=== PATIENT | male | born 1990 | race Hispanic/Latino ===

== ENCOUNTER 2018-06-04 23:04 | Emergency (ER) | payer BC ==
[2018-06-04] MEDS ORDERED: DIAZEPAM 10 MG/2 ML INJ SYRINGE ONE (23:21)
[2018-06-04] MEDS ORDERED: NA CHLORIDE 0.9% 1,000 ML ONE (23:27)
[2018-06-04 23:40] LABS: Absolute Lymphocytes (CBC) 3.7 K/uL (0.7-4.9); Absolute Monocytes 0.8 K/uL (0.1-1.3); Absolute Neutrophil 5.6 K/uL (1.8-8.0); Basophils % 0.8 % (0-1.3); Eosinophils % 0.7 % (0-4.4); Lymphocytes % 36.3 % (15.3-44.8); MCH 30.1 pg (27.0-35.0); MCV 88.4 fL (80-100); MPV 9.2 fL (7.6-11.3); Monocytes % 7.5 % (3.3-12.3); RBC Red Blood Cell Count 4.98 M/uL (4.33-5.43)
[2018-06-04 23:51] LABS: BUN Blood Urea Nitrogen 12 mg/dL (7-18); Bicarbonate 27 mmol/L (21-32); Glucose Level 88 mg/dL (74-106); Potassium 3.9 mmol/L (3.5-5.1); Sodium Level 142 mmol/L (136-145)
[2018-06-05 03:43] LABS: Barbiturates NEGATIVE (NEGATIVE); Benzodiazepines POSITIVE (NEGATIVE); Cocaine NEGATIVE (NEGATIVE); METHAMPHETAM NEGATIVE (NEGATIVE); Methadone NEGATIVE (NEGATIVE); Opiates NEGATIVE (NEGATIVE); Phencyclidine NEGATIVE (NEGATIVE); THC Cannibis POSITIVE (NEGATIVE)
--- NOTE | 2018-06-05 04:45 | ER ---
Nurse's Notes [facility] Name: Alfie Zavala Age: 28 yrs Sex: Male : 1990 Arrival Date: 06/04/2018 Time: 23:05 Bed 8 Private MD: Lanette Bucnker H Diagnosis: Seizure disorder. Substance abuse Presentation: 06/04 23:20 Presenting complaint: states: He had a seizure yesterday and two today. He had a tl3 tonic clonic seizure that caused him to hit his head on the floor. 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 Pt began to have another seizure in triage. Pt's states they ran out of Diazepam and pt has been forgetting to take seizure medications. Transition of care: patient was not received from another setting of care. Onset of symptoms was June 03, 2018. Risk Assessment: Do you want to hurt yourself or someone else? Patient reports no desire to harm self or others. Initial Sepsis Screen: Does the patient meet any 2 criteria? No. Patient's initial sepsis screen is negative. Does the patient have a suspected source of infection? No. Patient's initial sepsis screen is negative. Care prior to arrival: None. 23:20 Method Of Arrival: Wheelchair tl3 23:20 Acuity: KEN 2 tl3 Triage Assessment: 23:23 General: Appears in no apparent distress. uncomfortable, Behavior is anxious. Pain: tl3 Complains of pain in headache. Neuro: Level of Consciousness is awake, post ictal, Oriented to person, place. Historical: - Allergies: 23:23 Ativan; tl3 - Home Meds: 23:23 diazepam 10 mg Oral tab 1 tab as needed for Acute Repetitive Seizures, Anxiety tl3 [Active]; fluoxetine 40 mg Oral cap 1 cap once daily [Active]; lamotrigine 200 mg Oral tab 2 tabs once daily [Active]; sumatriptan oral 50 mg as needed [Active]; topiramate 100 mg Oral tab 1 tab 2 times per day [Active]; - PMHx: 23:23 Depression; Headaches; Seizures; tl3 - Immunization history:: Adult Immunizations up to date. - Social history:: Smoking status: Patient/guardian denies using tobacco. - Ebola Screening: : No symptoms or risks identified at this time. Screenin:21 Abuse screen: Denies threats or abuse. Nutritional screening: No deficits noted. tl2 Tuberculosis screening: No symptoms or risk factors identified. Fall Risk Fall in past 12 months (25 points). Secondary diagnosis (15 points) seizures, IV access (20 points). Assessment: 23:25 General: Appears uncomfortable, Behavior is cooperative. Pain: Denies pain. Neuro: ea Level of Consciousness is lethargic, Oriented to person, place, time. Neuro: Seizure activity reported prior to arrival. Type of seizure: tonic-clonic seizure. Cardiovascular: Patient's skin is warm and dry. Respiratory: Airway is patent Respiratory effort is even, unlabored, Respiratory pattern is regular, symmetrical. Derm: Skin is clammy, Skin is normal, Skin temperature is warm. 23:26 Reassessment: Physician at bedside, medication order obtained. Neuro: Seizure activity ea noted at this time. Type of seizure: tonic-clonic seizure. Seizure lasted approximately 1 minutes. 23:27 Reassessment: Medication administered. Pt tolerated well. ea 06/05 00:15 Neuro: Seizure activity noted at this time. Type of seizure: absence seizure. Less than ea one minute. Medication order obtained, medication administered. Pt tolerated well. Family remains at bedside. 00:30 Reassessment: Pt resting with eyes closed, respirations even and unlabored. chest ea expansions even and symmetrical. No s/s of pain or discomfort noted at this time. Family remains at bedside. 01:09 Reassessment: Patient and/or family updated on plan of care and expected duration. Pain ea level reassessed. Pt resting with eyes closed, respirations even and unlabored. chest expansions even and unlabored, chest expansions even and symmetrical. No s/s of pain or discomfort noted at this time. 02:32 Reassessment: Patient and/or family updated on plan of care and expected duration. Pain ea level reassessed. Pt resting with eyes closed, respirations even and unlabored. Chest expansions even and symmetrical. No s/s of pain or discomfort noted at this time. 03:32 Reassessment: No changes from previously documented assessment. Patient and/or family ea updated on plan of care and expected duration. Pain level reassessed. Awaiting on CT results. 04:19 Reassessment: Patient and/or family updated on plan of care and expected duration. Pain ea level reassessed. Patient is alert, oriented x 3, equal unlabored respirations, skin warm/dry/pink. Patient states feeling better. Patient states symptoms have improved. 04:50 Reassessment: Patient and/or family updated on plan of care and expected duration. Pain ea level reassessed. Patient is alert, oriented x 3, equal unlabored respirations, skin warm/dry/pink. Discharge instructions given to patient, verbalized the understanding of instructions. Patient states feeling better. Patient states symptoms have improved. Vital Signs: 06/04 23:23 BP 133 / 82; Pulse 78; Resp 20; Temp 99(O); Pulse Ox 99% on R/A; Weight 113.4 kg; tl3 Height 5 ft. 11 in. (180.34 cm); Pain 6/10; 06/05 00:30 BP 110 / 71; Pulse 60; Resp 18; Pulse Ox 99% on R/A; Pain 0/10; ea 01:09 BP 110 / 67; Pulse 58; Resp 19 S; Pulse Ox 99% ; ea 02:00 BP 102 / 71; Pulse 66; Resp 18 S; Pulse Ox 97% on R/A; ea 03:33 BP 109 / 69; Pulse 60; Resp 18; Pulse Ox 98% on R/A; ea 04:44 BP 106 / 64; Pulse 67; Resp 18; Temp 97.9; Pulse Ox 98% on R/A; Pain 0/10; ea 06/04 23:23 Body Mass Index 34.87 (113.40 kg, 180.34 cm) tl3 Nino Coma Score: 06/04 23:23 Eye Response: spontaneous(4). Verbal Response: confused(4). Motor Response: obeys tl3 commands(6). Total: 14. ED Course: 23:05 Patient arrived in ED. es 23:05 Lanette Buckner DO is Private Physician. es 23:09 Bran Tracy MD is Attending Physician. pkl 23:20 Lubna Salas, ESCOBAR is Primary Nurse. tl2 23:21 Inserted saline lock: 20 gauge in right antecubital area, using aseptic technique. tl2 Blood collected. 23:22 Triage completed. tl3 23:22 Patient has correct armband on for positive identification. Bed in low position. Call tl2 light in reach. Side rails up X2. 23:23 Arm band placed on right wrist. tl3 23:25 Seizure precautions initiated. tl3 23:[address] via stretcher. vr 23:45 CT completed. Patient tolerated procedure well. Patient moved back from CT. kw1 23:46 CT Head C Spine In Process Unspecified. EDMS 06/05 04:40 IV discontinued, intact, bleeding controlled, No redness/swelling at site. Pressure ea dressing applied. 04:45 No provider procedures requiring assistance completed. ea Administered Medications: 06/04 23:18 Drug: NS 0.9% 1000 ml Route: IV; Rate: 100 ml/hr; Site: right antecubital; tl2 06/05 04:45 Follow up: Response: No adverse reaction; IV Status: Completed infusion ea 06/04 23:20 Drug: Valium 5 mg Route: IVP; Site: right antecubital; tl2 06/05 00:00 Follow up: Response: No adverse reaction; Marked relief of symptoms ea 00:14 Drug: Valium 5 mg Route: IVP; Site: right antecubital; tl2 00:30 Follow up: Response: No adverse reaction; Marked relief of symptoms ea Outcome: 04:44 Discharge ordered by . pkanai 04:50 Discharged to home ambulatory, with family. ea 04:50 Condition: improved 04:50 Discharge instructions given to patient, Instructed on discharge instructions, follow up and referral plans. medication usage, Demonstrated understanding of instructions, follow-up care, medications. 04:52 Patient left the ED. ea Signatures: Dispatcher [employer] [facility] Bran Tracy MD MD pkl Salyer, Edna es Davis, Victoria vr Knox, Taylor, RN RN tl2 Briana Cevallos RN RN Tila Smith kw1 Caro Bowers RN RN tl3 Corrections: (The following items were deleted from the chart) 06/04 23:22 23:20 Presenting complaint: states: He had a seizure yesterday and two today. He tl3 had a tonic clonic seizure that caused him to hit his head on the floor. 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 Pt began to have another seizure in triage. tl3 06/05 02:30 06/04 23:26 Reassessment: Physician at bedside, medication order obtained. alex johnson
--- NOTE | 2018-06-05 04:45 | EDPHYS ---
Physician Documentation [facility] Name: Alfie Zavala Age: 28 yrs Sex: Male : 1990 Arrival Date: 06/04/2018 Time: 23:05 Bed 8 Private MD: Lanette Buckner H ED Physician Bran Tracy HPI: 06/05 00:17 This 28 yrs old Male presents to ER via Wheelchair with complaints of Seizure, pkl Head Injury-Adult. 00:17 The patient presents with a history of multiple seizures, a total of 4. Character of pkl seizure(s): Loss of consciousness: the patient experienced loss of consciousness, Motor activity: generalized. Seizure onset: yesterday. Historical: - Allergies: 06/04 23:23 Ativan; tl3 - Home Meds: 23:23 diazepam 10 mg Oral tab 1 tab as needed for Acute Repetitive Seizures, Anxiety tl3 [Active]; fluoxetine 40 mg Oral cap 1 cap once daily [Active]; lamotrigine 200 mg Oral tab 2 tabs once daily [Active]; sumatriptan oral 50 mg as needed [Active]; topiramate 100 mg Oral tab 1 tab 2 times per day [Active]; - PMHx: 23:23 Depression; Headaches; Seizures; tl3 - Immunization history:: Adult Immunizations up to date. - Social history:: Smoking status: Patient/guardian denies using tobacco. - Ebola Screening: : No symptoms or risks identified at this time. ROS: 06/05 00:17 Eyes: Negative for injury, pain, redness, and discharge, ENT: Negative for injury, pkl pain, and discharge, Neck: Negative for injury, pain, and swelling, Cardiovascular: Negative for chest pain, palpitations, and edema, Respiratory: Negative for shortness of breath, cough, wheezing, and pleuritic chest pain, Abdomen/GI: Negative for abdominal pain, nausea, vomiting, diarrhea, and constipation, Back: Negative for injury and pain, : Negative for injury, bleeding, discharge, and swelling, MS/Extremity: Negative for injury and deformity, Skin: Negative for injury, rash, and discoloration. Neuro: Positive for seizure activity. Exam: 00:17 Head/Face: Normocephalic, atraumatic. Eyes: Pupils equal round and reactive to light, pkl extra-ocular motions intact. Lids and lashes normal. Conjunctiva and sclera are non-icteric and not injected. Cornea within normal limits. Periorbital areas with no swelling, redness, or edema. ENT: Nares patent. No nasal discharge, no septal abnormalities noted. Tympanic membranes are normal and external auditory canals are clear. Oropharynx with no redness, swelling, or masses, exudates, or evidence of obstruction, uvula midline. Mucous membranes moist. Neck: Trachea midline, no thyromegaly or masses palpated, and no cervical lymphadenopathy. Supple, full range of motion without nuchal rigidity, or vertebral point tenderness. No Meningismus. Chest/axilla: Normal chest wall appearance and motion. Nontender with no deformity. No lesions are appreciated. Cardiovascular: Regular rate and rhythm with a normal S1 and S2. No gallops, murmurs, or rubs. Normal PMI, no JVD. No pulse deficits. Respiratory: Lungs have equal breath sounds bilaterally, clear to auscultation and percussion. No rales, rhonchi or wheezes noted. No increased work of breathing, no retractions or nasal flaring. Abdomen/GI: Soft, non-tender, with normal bowel sounds. No distension or tympany. No guarding or rebound. No evidence of tenderness throughout. Back: No spinal tenderness. No costovertebral tenderness. Full range of motion. Skin: Warm, dry with normal turgor. Normal color with no rashes, no lesions, and no evidence of cellulitis. MS/ Extremity: Pulses equal, no cyanosis. Neurovascular intact. Full, normal range of motion. Neuro: Awake and alert, GCS 15, oriented to person, place, time, and situation. Cranial nerves II-XII grossly intact. Motor strength 5/5 in all extremities. Sensory grossly intact. Cerebellar exam normal. Normal gait. Vital Signs: 06/04 23:23 BP 133 / 82; Pulse 78; Resp 20; Temp 99(O); Pulse Ox 99% on R/A; Weight 113.4 kg; tl3 Height 5 ft. 11 in. (180.34 cm); Pain 6/10; 06/05 00:30 BP 110 / 71; Pulse 60; Resp 18; Pulse Ox 99% on R/A; Pain 0/10; ea 01:09 BP 110 / 67; Pulse 58; Resp 19 S; Pulse Ox 99% ; ea 02:00 BP 102 / 71; Pulse 66; Resp 18 S; Pulse Ox 97% on R/A; ea 03:33 BP 109 / 69; Pulse 60; Resp 18; Pulse Ox 98% on R/A; ea 04:44 BP 106 / 64; Pulse 67; Resp 18; Temp 97.9; Pulse Ox 98% on R/A; Pain 0/10; ea 06/04 23:23 Body Mass Index 34.87 (113.40 kg, 180.34 cm) tl3 Nino Coma Score: 06/04 23:23 Eye Response: spontaneous(4). Verbal Response: confused(4). Motor Response: obeys tl3 commands(6). Total: 14. MDM: 23:10 Patient medically screened. pkl 06/05 04:42 Data reviewed: vital signs, nurses notes, lab test result(s), radiologic studies, CT pkl scan. ED course: Patient alert and rational. Admits to taking THC. Advised to stop THC and follow up with Neurologist in 1 to 2 days. 06/04 23:20 Order name: CBC with Diff; Complete Time: 01:42 pkl 06/04 23:20 Order name: Chem 7; Complete Time: 01:42 pkl 06/04 23:20 Order name: UDS; Complete Time: 03:54 pkl 06/04 23:20 Order name: CT Head C Spine pkl 06/05 03:10 Order name: Urine Dipstick--Ancillary (enter results) rg2 Administered Medications: 06/04 23:18 Drug: NS 0.9% 1000 ml Route: IV; Rate: 100 ml/hr; Site: right antecubital; tl2 06/05 04:45 Follow up: Response: No adverse reaction; IV Status: Completed infusion ea 06/04 23:20 Drug: Valium 5 mg Route: IVP; Site: right antecubital; tl2 06/05 00:00 Follow up: Response: No adverse reaction; Marked relief of symptoms ea 00:14 Drug: Valium 5 mg Route: IVP; Site: right antecubital; tl2 00:30 Follow up: Response: No adverse reaction; Marked relief of symptoms ea Disposition: 06/05/18 04:44 Discharged to Home. Impression: Seizure disorder. Substance abuse. - Condition is Stable. - Prescriptions for Valium 10 mg Oral Tablet - take 1 tablet by ORAL route 1-2 times daily As needed; 10 tablet. - Medication Reconciliation Form, Thank You Letter, Antibiotic Education, Prescription Opioid Use form. - Follow up: Private Physician; When: 1 - 2 days; Reason: Re-evaluation by your physician. - Problem is new. - Symptoms have improved. Signatures: Dispatcher [employer] ED[facility] Bran Tracy MD MD pkl Dulce Bennett RN RN ak1 Lubna Salas RN RN tl2 Briana Cevallos RN RN Caro Hernandez RN RN tl3 Corrections: (The following items were deleted from the chart) 04:52 04:44 06/05/2018 04:44 Discharged to Home. Impression: Seizure disorder. Substance ea abuse. Condition is Stable. Forms are Medication Reconciliation Form, Thank You Letter, Antibiotic Education, Prescription Opioid Use. Follow up: Private Physician; When: 1 - 2 days; Reason: Re-evaluation by your physician. Problem is new. Symptoms have improved. pkl
[2018-06-05 04:53] LABS: Urine Blood TRACE (NEG); Urine Glucose NEGATIVE (NEG); Urine Protein NEGATIVE (NEG); Urine Specific Gravity 1.015 (1.005-1.030); Urine pH 7.5 (5.0-7.0)
[2018-06-05 05:01] VITALS: O2SAT 98
[2018-06-05 05:02] VITALS: BP 106/64; TEMP 97.9
--- NOTE | 2018-06-05 08:22 | RAD REPORT ---
EXAM DESCRIPTION: CT - CTHCSPWOC - 06/05/2018 4:12 am CLINICAL HISTORY: Seizure, fall, head and neck injury A preliminary written report was provided at the time of the study, and the report was reviewed prio r to final dictation. COMPARISON: CT head October 2016 TECHNIQUE: Axial 5 mm thick images of the head were obtained. Axial 2 mm thick images of the cervic al spine were obtained with sagittal and coronal reconstruction images generated and reviewed. All CT scans are performed using dose optimization technique as appropriate and may include automated exposure control or mA/KV adjustment according to patient size. FINDINGS: No intracranial hemorrhage, mass, edema or acute intracranial finding. No suspicion for ac robinson infarction. No extra-axial fluid collections. Mastoid air cells and paranasal sinuses are clear. Left mastoid air cells underpneumatized as a normal variant. No globe or orbit abnormality seen. No significant change from comparison. Cervical body height and alignment are normal. 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 No disc space narr owing otherwise noted. No fracture or acute bony abnormality. No paraspinal mass or hematoma. IMPRESSION: Negative CT head examination for acute or significant finding. Negative CT cervical spine examination for acute or significant finding.
== END 2018-06-05 04:52 | disposition home or self-care (01) ==
LOC: ER 23:04
DX: G40.802 Other epilepsy, not intractable, without status epilepticus (principal); F19.10 Other psychoactive substance abuse, uncomplicated; S09.90XA Unspecified injury of head, initial encounter; W19.XXXA Unspecified fall, initial encounter; Y93.9 Activity, unspecified; Y92.9 Unspecified place or not applicable; Z88.8 Allergy status to other drugs, medicaments and biological substances; F32.9 Major depressive disorder, single episode, unspecified
CPT/HCPCS: 36415; 70450; 72125; 80048; 80307; 81003; 85025; 96361; 96374; 99284; J3360; J7030

== ENCOUNTER 2018-08-09 17:22 | Emergency (ER) | payer BC ==
[2018-08-09] MEDS ORDERED: LORazepam 2 MG/ML VIAL ONE (18:05)
[2018-08-09] MEDS ORDERED: DIAZEPAM 10 MG/2 ML INJ SYRINGE ONE ×2 (18:11→21:18)
[2018-08-09] MEDS ORDERED: NA CHLORIDE 0.9% 1,000 ML ONE ×2 (18:26→19:55)
[2018-08-09 18:30] LABS: Arterial Blood Carboxyhemoglob 0.9 % (0-1.5); Blood Gas Oxyhemoglobin 94.7 % (94-97); Blood O2 Saturation 96.6 % (92-98.5)
[2018-08-09 18:55] LABS: Absolute Lymphocytes (CBC) 0.9 K/uL (0.7-4.9); Absolute Monocytes 0.7 K/uL (0.1-1.3); Absolute Neutrophil 9.1 K/uL (1.8-8.0); Basophils % 0.5 % (0-1.3); Eosinophils % 0.1 % (0-4.4); Hematocrit 39.7 % (39.6-49.0); Lymphocytes % 8.4 % (15.3-44.8); MCH 30.2 pg (27.0-35.0); MCV 87.7 fL (80-100); MPV 9.5 fL (7.6-11.3); Monocytes % 6.2 % (3.3-12.3); RBC Red Blood Cell Count 4.53 M/uL (4.33-5.43)
--- NOTE | 2018-08-09 18:55 | RAD REPORT ---
EXAM DESCRIPTION: CT - CTHCSP[facility]OC - 08/09/2018 6:35 pm CLINICAL HISTORY: Head and neck trauma, neck pain, headache COMPARISON: CT head and cervical June 04 TECHNIQUE: Axial 5 mm thick images of the head were obtained. Axial 2 mm thick images of the cervic al spine were obtained with sagittal and coronal reconstruction images generated and reviewed. All CT scans are performed using dose optimization technique as appropriate and may include automated exposure control or mA/KV adjustment according to patient size. FINDINGS: No intracranial hemorrhage, mass, edema or acute intracranial finding. No suspicion for acute infarct ion. No extra-axial fluid collections. Mastoid air cells and paranasal sinuses are clear. No globe or orbit abnormality seen. Cervical body height and alignment are normal. No disk space narrowing. The patient has congenital C5 -6 fusion of the vertebral body and facet joints. No fracture or acute bony abnormality. No paraspinal mass or hematoma. No significant soft tissue edema or soft tissue injury evident. IMPRESSION: Negative CT head examination for acute or significant finding. Negative CT cervical spine examination for acute or significant finding.
[2018-08-09 18:58] LABS: Protime INR 1.18
[2018-08-09 19:39] LABS: ALT/SGPT 48 U/L (12-78); AST/SGOT 52 U/L (15-37); Albumin 4.2 g/dL (3.4-5.0); Alkaline Phosphatase 99 U/L (45-117); BUN Blood Urea Nitrogen 19 mg/dL (7-18); Bicarbonate 23 mmol/L (21-32); Bilirubin Direct 0.2 mg/dL (0-0.2); Bilirubin Total 0.8 mg/dL (0.2-1.0); Glucose Level 93 mg/dL (74-106); Potassium 3.8 mmol/L (3.5-5.1); Protein, Total 7.8 g/dL (6.4-8.2); Sodium Level 139 mmol/L (136-145)
[2018-08-09 20:55] LABS: Urine Blood NEGATIVE (NEG); Urine Glucose NEGATIVE (NEG); Urine Protein 1+ (NEG); Urine Specific Gravity 1.015 (1.005-1.030); Urine pH 6.5 (5.0-7.0)
[2018-08-09 20:55] LABS: Barbiturates NEGATIVE (NEGATIVE); Benzodiazepines POSITIVE (NEGATIVE); Cocaine NEGATIVE (NEGATIVE); METHAMPHETAM NEGATIVE (NEGATIVE); Methadone NEGATIVE (NEGATIVE); Opiates NEGATIVE (NEGATIVE); Phencyclidine NEGATIVE (NEGATIVE); THC Cannibis POSITIVE (NEGATIVE)
[2018-08-09] MEDS ORDERED: NA CHLORIDE 0.9% 250 ML ONE (21:51)
[2018-08-09] MEDS ORDERED: LEVETIRACETAM 500 MG/5 ML VIAL IV ONE (21:51)
--- NOTE | 2018-08-09 22:57 | ER ---
Nurse's Notes [facility] Name: Alfie Zavala Age: 28 yrs Sex: Male : 1990 Arrival Date: 08/09/2018 Time: 17:23 Bed 17 Private MD: Lanette Buckner H Diagnosis: Suicidal ideations;Suicide attempt;Seizure, unspecified Presentation: 08/09 17:37 Presenting complaint: Patient states: "I feel worthless, like the people would be hb better off without me, I am a loser, they are better off without me, the voice is telling me I could just stop feeling if I just ended it, I have cut myself and punched my face." Pt reported he tried to hang himself with electric cord 2 days ago, but the cord was too long and his toes touched the floor, and tried to overdose on muscle relaxers last week. Transition of care: patient was not received from another setting of care. Onset of symptoms was August 09, 2018. Risk Assessment: Do you want to hurt yourself or someone else? Patient reports no desire to harm self or others. 17:37 Method Of Arrival: Ambulatory hb 17:37 Acuity: KEN 2 hb 18:10 Initial Sepsis Screen: Does the patient meet any 2 criteria? No. Patient's initial sepsis screen is negative. Does the patient have a suspected source of infection? No. Patient's initial sepsis screen is negative. 18:10 Care prior to arrival: None. Triage Assessment: 18:10 General: Appears in no apparent distress. uncomfortable, Behavior is calm, cooperative, hj appropriate for age. Pain: Denies pain. Historical: - Allergies: 17:42 Ativan; hb - Home Meds: 17:42 diazepam 10 mg oral tab [Active]; fluoxetine 40 mg Oral cap 1 cap once daily [Active]; hb lamotrigine 200 mg Oral tab 2 tabs once daily [Active]; sumatriptan oral 50 mg as needed [Active]; topiramate 100 mg Oral tab 1 tab 2 times per day [Active]; - PMHx: 17:42 Depression; Headaches; Seizures; hb - Immunization history:: Adult Immunizations up to date. - Social history:: Smoking status: Patient/guardian denies using tobacco, Patient/guardian denies using. - Ebola Screening: : No symptoms or risks identified at this time. Screenin:10 Abuse screen: Denies threats or abuse. Denies injuries from another. Nutritional hj screening: No deficits noted. Tuberculosis screening: No symptoms or risk factors identified. Fall Risk None identified. Assessment: 18:07 Neuro: Seizure activity noted at this time. Type of seizure: tonic-clonic seizure. aj Seizure lasted approximately 1 minutes. Patient is post-ictal at this time. 18:09 Reassessment: Responded to Staff Assist to room 17 to find patient actively seizing. aj Rolled patient to side and called for monitoring cables, oxygen mask, O2 set up, and suction set up. Witnessed tonic clonic seizure for 30 seconds. Patient currently post ictal in room. Placed patient on monitors. 18:20 Reassessment: Patient and/or family updated on plan of care and expected duration. Pain hj level reassessed. Patient is alert, oriented x 3, equal unlabored respirations, skin warm/dry/pink. resp in room for ABG:. 18:29 Reassessment: pt wheeled to CT;. hj 19:15 Reassessment: Patient appears in no apparent distress at this time. Patient and/or jd3 family updated on plan of care and expected duration. Pain level reassessed. Patient is alert, oriented x 3, equal unlabored respirations, skin warm/dry/pink. 20:15 Reassessment: Patient appears in no apparent distress at this time. Patient and/or jd3 family updated on plan of care and expected duration. Pain level reassessed. Patient is alert, oriented x 3, equal unlabored respirations, skin warm/dry/pink. 21:13 Reassessment: pt had seizor last 2 min. new orders received, see MAR. jd3 21:30 Reassessment: Patient appears in no apparent distress at this time. Patient and/or jd3 family updated on plan of care and expected duration. Pain level reassessed. Patient is alert, oriented x 3, equal unlabored respirations, skin warm/dry/pink. 22:15 Reassessment: Patient appears in no apparent distress at this time. Patient and/or jd3 family updated on plan of care and expected duration. Pain level reassessed. Patient is alert, oriented x 3, equal unlabored respirations, skin warm/dry/pink. 23:07 Reassessment: Patient appears in no apparent distress at this time. Patient and/or jd3 family updated on plan of care and expected duration. Pain level reassessed. Patient is alert, oriented x 3, equal unlabored respirations, skin warm/dry/pink. 23:33 Reassessment: Patient appears in no apparent distress at this time. Patient and/or jd3 family updated on plan of care and expected duration. Pain level reassessed. Patient is alert, oriented x 3, equal unlabored respirations, skin warm/dry/pink. report given Miss. Blue CODY at [facility]. 08/10 00:00 Reassessment: Patient appears in no apparent distress at this time. No changes from jd3 previously documented assessment. Patient and/or family updated on plan of care and expected duration. Pain level reassessed. Patient is alert, oriented x 3, equal unlabored respirations, skin warm/dry/pink. report given to EMS. Psych: 08/09 17:53 Subjective: Patient's mood is sad, hopeless, Delusions are denied, Hallucinations are hb auditory, Having thoughts of suicide. Objective: Patient is cooperative, using poor eye contact, restless, Speech is rambling, soft, Affect is flat. Interventions: Removed personal items and placed in bag. Patient placed in hospital gown. Suicide Risk Assessment: Sad Person Scale: Sex of patient: Male: Score 1 point. Age of patient: Score 1 point if patient 15-34. Depression: Score 1 point if signs of depression are present. Previous Attempt: Score 1 point if patient has previously attempted suicide. Substance Abuse: Score 0 point if patient does not abuse alcohol or drugs. Rational Thinking: Score 1 point if patient is lacking rational thinking. Social Support: Score 0 if social support is present/available. Organized Plan: Score 1 point if patient had a plan in place. Relationship: Score 0 point if patient has a spouse or domestic partner. Chronic Sickness: Score 1 point if patient has illness, chronic, debilitating, or severe. TOTAL POINTS: If total points are 7-10, the proposed clinical action is to hospitalize or commit. Implement suicide precautions. Safety Checks: Personal items have been removed. Door is open. Visitors are present. Patient uses. Commitment: Patient will be a voluntary commitment. Vital Signs: 17:41 BP 134 / 88; Pulse 82; Resp 16; Temp 98; Pulse Ox 100% on R/A; Pain 0/10; hb 18:18 BP 105 / 64; Pulse 97; Resp 18; Pulse Ox 98% on R/A; hj 18:43 BP 106 / 62; Pulse 94; Resp 18; Pulse Ox 99% on R/A; mh5 18:53 BP 101 / 62; Pulse 85; Resp 18; Pulse Ox 99% on R/A; hj 19:39 BP 100 / 59; Pulse 75; Resp 17; Pulse Ox 98% on R/A; mw2 20:55 BP 109 / 71; Pulse 63; Resp 17; Pulse Ox 99% on R/A; mw2 21:33 BP 106 / 70; Pulse 65; Resp 17; Pulse Ox 99% on R/A; mw2 23:09 BP 110 / 61; Pulse 90; Resp 17; Pulse Ox 100% on R/A; mw2 08/10 00:01 BP 104 / 64; Pulse 93; Resp 18 S; Pulse Ox 99% on R/A; jd3 ED Course: 08/09 17:23 Patient arrived in ED. as 17:24 Lanette Buckner DO is Private Physician. as 17:41 Triage completed. hb 17:42 Arm band placed on left wrist. hb 17:45 Safety checks: Items removed: yes. Door open/sign placed on door: yes. Family/friend mh5 present: yes. Family/friends encouraged to stay with patient. Sitter present: Yes. 17:50 Patient has correct armband on for positive identification. Placed in gown. Bed in low mh5 position. Side rails up X 1. Adult w/ patient. Warm blanket given. Diet: Patient given a regular meal tray. 17:53 EKG done, by geotechnical operating engineer. reviewed by Lj Alcaraz MD. 3 18:00 Safety checks: Items removed: yes. Door open/sign placed on door: yes. Family/friend mh5 present: yes. Family/friends encouraged to stay with patient. Sitter present: Yes. SEIZURE PADS IN PLACE. Pulse ox on. NIBP on. 18:05 Lj Alcaraz MD is Attending Physician. gs 18:08 Initial lab(s) drawn, by me, held in ED. Inserted saline lock: 20 gauge in right mh5 antecubital area, using aseptic technique. Blood collected. 18:15 Safety checks: Items removed: yes. Door open/sign placed on door: yes. Family/friend mh5 present: yes. Family/friends encouraged to stay with patient. Sitter present: Yes. 18:22 sent to lab. mh5 18:25 Ptt, Activated Sent. mh5 18:25 Salicylate Sent. mh5 18:25 CBC with Diff Sent. mh5 18:25 Acetaminophen Sent. mh5 18:25 Basic Metabolic Panel Sent. mh5 18:26 ETOH Level Sent. mh5 18:26 Hepatic Function Sent. mh5 18:26 PT-INR Sent. mh5 18:27 Christina Clemente [facility]C [facility]. snw 18:28 Bimal Hong, ESCOBAR is Primary Nurse. 18:30 Safety checks: Items removed: yes. Door open/sign placed on door: yes. Family/friend mh5 present: yes. Family/friends encouraged to stay with patient. Sitter present: Yes. 18:34 CT Head C Spine In Process Unspecified. EDMS 18:45 Safety checks: Items removed: yes. Door open/sign placed on door: yes. Family/friend mh5 present: yes. Family/friends encouraged to stay with patient. Sitter present: Yes. 18:47 Ptt, Activated Sent. mh5 18:47 Salicylate Sent. mh5 18:47 Acetaminophen Sent. mh5 18:47 Basic Metabolic Panel Sent. mh5 18:47 CBC with Diff Sent. mh5 18:48 ETOH Level Sent. mh5 18:48 Hepatic Function Sent. mh5 18:48 PT-INR Sent. mh5 19:00 Safety checks: Items removed: yes. Door open/sign placed on door: yes. Family/friend mh5 present: yes. Family/friends encouraged to stay with patient. Sitter present: Yes. 19:00 Report given to ESCOBAR Guzman. 19:15 Safety checks: Items removed: yes. Door open/sign placed on door: yes. Family/friend mw2 present: yes. Sitter present: Yes. 19:30 Safety checks: Items removed: yes. Door open/sign placed on door: yes. Family/friend mw2 present: yes. Sitter present: Yes. 19:42 Philip Jeronimo RN is Primary Nurse. j 19:45 Safety checks: Items removed: yes. Door open/sign placed on door: yes. Family/friend mw2 present: no. Sitter present: Yes. 20:00 Safety checks: Items removed: yes. Door open/sign placed on door: yes. Family/friend mw2 present: no. Sitter present: Yes. 20:15 Safety checks: Items removed: yes. Door open/sign placed on door: yes. Family/friend mw2 present: no. Sitter present: Yes. 20:30 Safety checks: Items removed: yes. Door open/sign placed on door: yes. Family/friend mw2 present: yes. Sitter present: Yes. 20:45 Safety checks: Items removed: yes. Door open/sign placed on door: yes. Family/friend mw2 present: yes. Sitter present: Yes. 21:00 Safety checks: Items removed: yes. Door open/sign placed on door: yes. Family/friend mw2 present: yes. Sitter present: Yes. 21:05 Attending Physician role handed off by Lj Alcaraz MD [facility] 21:05 Kay Chinchilla MD is Attending Physician. [facility] 21:15 Safety checks: Items removed: yes. Door open/sign placed on door: yes. Family/friend mw2 present: yes. Sitter present: Yes. Notified primary nurse of patient seizing. 21:30 Safety checks: Items removed: yes. Door open/sign placed on door: yes. Family/friend mw2 present: yes. Sitter present: Yes. 21:45 Safety checks: Items removed: yes. Door open/sign placed on door: yes. Family/friend mw2 present: yes. Sitter present: Yes. 22:00 Safety checks: Items removed: yes. Door open/sign placed on door: yes. Family/friend mw2 present: yes. Sitter present: Yes. 22:15 Safety checks: Items removed: yes. Door open/sign placed on door: yes. Family/friend mw2 present: yes. Sitter present: Yes. 22:30 Safety checks: Items removed: yes. Door open/sign placed on door: yes. Family/friend mw2 present: yes. Sitter present: Yes. 22:45 Safety checks: Items removed: yes. Door open/sign placed on door: yes. Family/friend mw2 present: yes. Sitter present: Yes. 23:00 Safety checks: Items removed: yes. Door open/sign placed on door: yes. Family/friend mw2 present: yes. Sitter present: Yes. 23:15 Safety checks: Items removed: yes. Door open/sign placed on door: yes. Family/friend mw2 present: yes. Sitter present: Yes. 23:30 Safety checks: Items removed: yes. Door open/sign placed on door: yes. Family/friend mw2 present: yes. Sitter present: Yes. 23:45 Safety checks: Items removed: yes. Door open/sign placed on door: yes. Family/friend oe present: yes. Family/friends encouraged to stay with patient. Sitter present: Yes. 23:59 No provider procedures requiring assistance completed. Patient transferred, IV remains jd3 in place. Administered Medications: 18:08 Drug: Valium 5 mg Route: IVP; Site: right antecubital; 18:15 Follow up: Response: No adverse reaction 18:21 Drug: NS 0.9% 1000 ml Route: IV; Rate: 1 bolus; Site: left antecubital; 23:01 Follow up: Response: No adverse reaction; IV Status: Completed infusion; IV Intake: jd3 1000ml 20:05 Drug: NS 0.9% 1000 ml Route: IV; Rate: 125 ml/hr; Site: right antecubital; jd3 08/10 00:00 Follow up: Response: No adverse reaction; IV Status: Infusion continued upon transfer jd3 08/09 21:15 Drug: Valium 5 mg Route: IVP; Site: right antecubital; jd3 23:01 Follow up: Response: No adverse reaction jd3 21:54 Drug: Keppra 1000 mg Route: IV; Rate: calculated rate; Site: right antecubital; jd3 23:01 Follow up: Response: No adverse reaction; IV Status: Completed infusion jd3 Intake: 23:01 IV: 1000ml; Total: 1000ml. jd3 Outcome: 22:57 ER care complete, transfer ordered by MD. bruno 23:59 Transferred by ground EMS to [facility], Transfer form completed. jd3 X-rays sent w/ patient. 23:59 Condition: stable 23:59 Instructed on the need for transfer, Demonstrated understanding of instructions. 08/10 00:01 Patient left the ED. jd3 Signatures: Dispatcher [employer] EDMS Akila Worthington, RN RN Christina Martin, RIP AND GROOVE MACHINE OPERATOR-C RIP AND GROOVE MACHINE OPERATOR-Csnw Susy Baker Henry, RN Elizabeth Moreno RN RN Jaylen SandersonHeydi Harry [facility] Lj Alcaraz MD MD gs Davies, Jonathon, RN RN jd3 Kay Chinchilla MD MD [facility] Venkatesh Saavdera 2 Cely Shepherd 3 Corrections: (The following items were deleted from the chart) 08/09 17:52 17:37 Presenting complaint: Patient states: "I feel worthless, like the people would be hb better off without me, I am a loser, they are better off without me, my depression is telling me I could just stop feeling it, I have cut myself and punched my face." Tried to hang himself with electric cord 2 days ago, but the cord was too long and his toes touched the floor, tried to OD on muscle relaxers last week. 23:45 23:38 Safety checks: Items removed: yes. Door open/sign placed on door: yes. oe Family/friend present: yes. Family/friends encouraged to stay with patient. Sitter present: Yes. oe 23:53 23:38 Safety checks: Items removed: yes. Door open/sign placed on door: yes. oe Family/friend present: yes. Family/friends encouraged to stay with patient. Sitter present: Yes. oe
--- NOTE | 2018-08-09 22:57 | EDPHYS ---
Physician Documentation [facility] Name: Alfie Zavala Age: 28 yrs Sex: Male : 1990 Arrival Date: 08/09/2018 Time: 17:23 Bed 17 Private MD: Lanette Buckner H ED Physician Kay Chinchilla HPI: 08/09 20:32 This 28 yrs old Male presents to ER via Ambulatory with complaints of Psych snw Problem. 20:32 The patient presents to the emergency department with depression, a history of a snw suicide gesture, tried to hang himself, cutting, and beating his head , suicide ideation, and the patient has a plan. Onset: The symptoms/episode began/occurred 3 day(s) ago, and became worse and became persistent. Past psychiatric history: Primary psychiatric physician: the patient does not have a primary psychiatric physician, the patient has had a prior suicide gesture, at age 17, the patient's last psychiatric treatment was unknown. Past psychiatric history: Prior diagnosis: bipolar disorder, depression, Psychiatric medications include: Prozac, Valium, Lamictal, Topamax. Associated signs and symptoms: Pertinent positives; anxiety, depression, suicide ideation, hearing voices. Severity of symptoms: At their worst the symptoms were severe in the emergency department the symptoms are unchanged. It is unknown whether or not the patient has had similar symptoms in the past. The patient has not recently seen a physician. Spouse at bedside. States pt has had several suicide attempts. The voices tell pt bad things about the spouse and their life. Historical: - Allergies: 17:42 Ativan; hb - Home Meds: 17:42 diazepam 10 mg oral tab [Active]; fluoxetine 40 mg Oral cap 1 cap once daily [Active]; hb lamotrigine 200 mg Oral tab 2 tabs once daily [Active]; sumatriptan oral 50 mg as needed [Active]; topiramate 100 mg Oral tab 1 tab 2 times per day [Active]; - PMHx: 17:42 Depression; Headaches; Seizures; hb - Immunization history:: Adult Immunizations up to date. - Social history:: Smoking status: Patient/guardian denies using tobacco, Patient/guardian denies using. - Ebola Screening: : No symptoms or risks identified at this time. ROS: 20:39 Constitutional: Negative for fever, chills, and weight loss, Eyes: Negative for injury, snw pain, redness, and discharge, ENT: Negative for injury, pain, and discharge, Neck: Negative for injury, pain, and swelling, Cardiovascular: Negative for chest pain, palpitations, and edema, Respiratory: Negative for shortness of breath, cough, wheezing, and pleuritic chest pain, Abdomen/GI: Negative for abdominal pain, nausea, vomiting, diarrhea, and constipation, Back: Negative for injury and pain, : Negative for injury, bleeding, discharge, and swelling, MS/Extremity: Negative for injury and deformity, Skin: Negative for injury, rash, and discoloration, Neuro: Negative for headache, weakness, numbness, tingling, and seizure. 20:39 Psych: Positive for anxiety, depression, auditory hallucinations, suicide gesture, suicidal ideation. Exam: 21:16 Head/Face: Normocephalic, atraumatic. Eyes: Pupils equal round and reactive to light, snw extra-ocular motions intact. Lids and lashes normal. Conjunctiva and sclera are non-icteric and not injected. Cornea within normal limits. Periorbital areas with no swelling, redness, or edema. ENT: Nares patent. No nasal discharge, no septal abnormalities noted. Tympanic membranes are normal and external auditory canals are clear. Oropharynx with no redness, swelling, or masses, exudates, or evidence of obstruction, uvula midline. Mucous membranes moist. Neck: Trachea midline, no thyromegaly or masses palpated, and no cervical lymphadenopathy. Supple, full range of motion without nuchal rigidity, or vertebral point tenderness. No Meningismus. Chest/axilla: Normal chest wall appearance and motion. Nontender with no deformity. No lesions are appreciated. Cardiovascular: Regular rate and rhythm with a normal S1 and S2. No gallops, murmurs, or rubs. Normal PMI, no JVD. No pulse deficits. Respiratory: Lungs have equal breath sounds bilaterally, clear to auscultation and percussion. No rales, rhonchi or wheezes noted. No increased work of breathing, no retractions or nasal flaring. Abdomen/GI: Soft, non-tender, with normal bowel sounds. No distension or tympany. No guarding or rebound. No evidence of tenderness throughout. Back: No spinal tenderness. No costovertebral tenderness. Full range of motion. Skin: Warm, dry with normal turgor. Normal color with no rashes, no lesions, and no evidence of cellulitis. MS/ Extremity: Pulses equal, no cyanosis. Neurovascular intact. Full, normal range of motion. Neuro: Awake and alert, GCS 15, oriented to person, place, time, and situation. Cranial nerves II-XII grossly intact. Motor strength 5/5 in all extremities. Sensory grossly intact. Cerebellar exam normal. Normal gait. 21:16 Constitutional: The patient appears alert, awake, anxious, ecchymosis around right eye 21:16 Psych: Behavior/mood is anxious, depressed, Affect is flat, Oriented to person, place, time, Patient having thoughts of suicide. Plan for suicide is hanging, cutting, beating Judgement / Insight is impaired. Memory is normal. Delusions/hallucinations are present and described as Pt states he is hearing voices. Vital Signs: 17:41 BP 134 / 88; Pulse 82; Resp 16; Temp 98; Pulse Ox 100% on R/A; Pain 0/10; hb 18:18 BP 105 / 64; Pulse 97; Resp 18; Pulse Ox 98% on R/A; hj 18:43 BP 106 / 62; Pulse 94; Resp 18; Pulse Ox 99% on R/A; mh5 18:53 BP 101 / 62; Pulse 85; Resp 18; Pulse Ox 99% on R/A; hj 19:39 BP 100 / 59; Pulse 75; Resp 17; Pulse Ox 98% on R/A; mw2 20:55 BP 109 / 71; Pulse 63; Resp 17; Pulse Ox 99% on R/A; mw2 21:33 BP 106 / 70; Pulse 65; Resp 17; Pulse Ox 99% on R/A; mw2 23:09 BP 110 / 61; Pulse 90; Resp 17; Pulse Ox 100% on R/A; mw2 08/10 00:01 BP 104 / 64; Pulse 93; Resp 18 S; Pulse Ox 99% on R/A; jd3 MDM: 08/09 18:05 Patient medically screened. gs 21:24 Data reviewed: vital signs, nurses notes. Data interpreted: Pulse oximetry: on room air snw is 99 %. Interpretation: normal. Counseling: I had a detailed discussion with the patient and/or guardian regarding: the historical points, exam findings, and any diagnostic results supporting the discharge/admit diagnosis, lab results, the need to transfer to another facility, for higher level of care, [facility] does not immediately have the required specialist, Dr. Palomares spoke with [facility] who declines pt 2nd to seizures. No Neuro or Psych services here to admit. . 21:25 ED course: Pt with witnessed seizure, no incontinence, no cyanosis, no vomiting. Tonic snw clonic movements stopped post Valium, pt immediately sat up with confusion. IV Keppra load in progress. 21:34 Physician consultation: Dr Millard was called at 21:35, was contacted at 21:35, snw regarding regarding transfer, patient's condition, need for neuro and psych eval. 21:55 Awaiting: Spoke with Dr. Bustos and Dr. Barrientos, discussed pt condition and difficulty in snw disposition, they kindly accept pt in transfer and will await bed assignment. 08/09 18:07 Order name: Acetaminophen; Complete Time: 19:42 08/09 18:07 Order name: Basic Metabolic Panel; Complete Time: 19:42 08/09 18:07 Order name: CBC with Diff; Complete Time: 19:04 08/09 18:07 Order name: ETOH Level; Complete Time: 19:42 08/09 18:07 Order name: Hepatic Function; Complete Time: 19:42 08/09 18:07 Order name: PT-INR; Complete Time: 19:22 08/09 18:07 Order name: Ptt, Activated; Complete Time: 19:22 08/09 18:07 Order name: Salicylate; Complete Time: 19:42 08/09 18:07 Order name: Urine Drug Screen; Complete Time: 21:05 08/09 18:07 Order name: ABG; Complete Time: 18:33 08/09 18:07 Order name: CT Head C Spine; Complete Time: 18:59 08/09 20:43 Order name: Urine Dipstick--Ancillary (enter results); Complete Time: 21:05 rg2 08/09 18:02 Order name: EKG Electrocardiogram; Complete Time: 18:26 EDMS 08/09 18:07 Order name: EKG; Complete Time: 18:08 08/09 18:07 Order name: EKG - Nurse/Tech; Complete Time: 18:22 08/09 18:07 Order name: IV Saline Lock; Complete Time: 18:15 08/09 18:07 Order name: Labs collected and sent; Complete Time: 18:15 08/09 18:07 Order name: Urine Dipstick-Ancillary (obtain specimen); Complete Time: 23:02 Administered Medications: 18:08 Drug: Valium 5 mg Route: IVP; Site: right antecubital; 18:15 Follow up: Response: No adverse reaction 18:21 Drug: NS 0.9% 1000 ml Route: IV; Rate: 1 bolus; Site: left antecubital; 23:01 Follow up: Response: No adverse reaction; IV Status: Completed infusion; IV Intake: jd3 1000ml 20:05 Drug: NS 0.9% 1000 ml Route: IV; Rate: 125 ml/hr; Site: right antecubital; [facility] 08/10 00:00 Follow up: Response: No adverse reaction; IV Status: Infusion continued upon transfer [facility] 08/09 21:15 Drug: Valium 5 mg Route: IVP; Site: right antecubital; [facility] 23:01 Follow up: Response: No adverse reaction [facility] 21:54 Drug: Keppra 1000 mg Route: IV; Rate: calculated rate; Site: right antecubital; [facility] 23:01 Follow up: Response: No adverse reaction; IV Status: Completed infusion [facility] Disposition: 08/10 01:09 Co-signature as Attending Physician, Kay Chinchilla MD. Chart complete. ma2 Disposition: 08/09/18 22:57 Transfer ordered to [facility]. Diagnosis are Suicidal ideations, Suicide attempt, Seizure, unspecified. - Reason for transfer: Specialty. - Accepting physician is Dr. Bustos. - Condition is Stable. - Problem is an ongoing problem. - Symptoms are unchanged. Signatures: Dispatcher [employer] Akila Richardson RN RN aj Therrien, Shelly, PRE ALGEBRA TEACHER-C PRE ALGEBRA TEACHER-Csnw Bimal Hong RN RN hj Baxter, Heather, RN RN hb Starr, Gregory, MD MD gs Davies, Jonathon, RN RN jd3 Alzahri, Mohammad, MD MD ma2 Corrections: (The following items were deleted from the chart) 08/09 20:38 20:32 Past psychiatric history: Prior diagnosis: bipolar disorder, depression, snw Psychiatric medications include: Valium, Lamictal, Topamax, snw 08/10 00:01 08/09 22:57 08/09/2018 22:57 Transfer ordered to [facility]. jd3 Diagnosis is Suicidal ideations; Suicide attempt; Seizure, unspecified. Reason for transfer: Specialty. Accepting physician is Dr. Bustos. Condition is Stable. Problem is an ongoing problem. Symptoms are unchanged. snw
[2018-08-10 01:13] VITALS: TEMP 98
[2018-08-10 01:21] VITALS: BP 110/61; O2SAT 100
--- NOTE | 2018-08-10 09:46 | EKG ---
Test Date: 2018-08-09 Test Time: 17:51:14 Barrel Bridge Assembler: TAISHA MEASUREMENT RESULTS: Intervals: Rate: 101 AL: 148 QRSD: 80 QT: 320 QTc: 414 [place]: P: 52 AL: 148 QRS: 35 T: 31 INTERPRETIVE STATEMENTS: Sinus tachycardia Otherwise normal ECG Compared to ECG 11/01/2016 13:01:24 Sinus rhythm no longer present Sinus arrhythmia no longer present Electronically Signed On 08-10-18 09:45:35 CDT by Bryan Linder
== END 2018-08-10 00:01 | disposition short-term general hospital (02) ==
LOC: ER 17:22
DX: R45.851 Suicidal ideations (principal); G40.909 Epilepsy, unspecified, not intractable, without status epilepticus; F41.9 Anxiety disorder, unspecified; F32.9 Major depressive disorder, single episode, unspecified; Z88.8 Allergy status to other drugs, medicaments and biological substances
CPT/HCPCS: 36415; 70450; 72125; 80048; 80076; 80307; 80320; 80329; 81003; 82805; 85025; 85610; 85730; 93005; 96361; 96365; 96375; 99285; J1953; J3360; J7030

== ENCOUNTER 2018-09-10 01:08 | Emergency (ER) | payer BC ==
[2018-09-10] MEDS ORDERED: ETOMIDATE 20 MG/10 ML VIAL IV ONE (01:09)
[2018-09-10] MEDS ORDERED: SUCCINYLCHOLINE 20 MG/ML (10 ML) IV ONE (01:09)
--- OUTSIDE RECORDS SUMMARY | 2018-09-10 01:10 | XMS REPORT | Clinical Summary ---
:1990 Author Organization [facility] Address [address] [place] [address] Care Team Providers Name Role Phone Andrew Buckner Primary Care Provider Allergies Active Allergy Reactions Severity Noted Date Comments Lorazepam Hives Medium 08/10/2018 Medications Medication Sig Dispensed Refills Start Date End Date Status lamoTRIgine Take 200 mg by 0 Active (LAMICTAL) 200 MG mouth 2 (two) tablet times daily. SUMAtriptan Take 50 mg by 0 Active (IMITREX) 50 MG mouth once as tablet needed for Headaches. topiramate Take 50 mg by 0 Active (TOPAMAX) 50 MG mouth 2 (two) tablet times daily. mirtazapine Take 1 tablet 30 tablet 0 08/12/2018 Active (REMERON) 15 MG (15 mg total) tablet by mouth nightly. lidocaine Place 1 patch 30 patch 0 08/12/2018 Active (LIDODERM) 5 % onto the skin patch daily Remove & Discard patch within 12 hours or as directed by MD. For back pain. diazePAM (VALIUM) 5 Take 2 tablets 10 tablet 0 08/12/2018 Active MG tablet (10 mg total) by mouth every 8 (eight) hours as needed for Anxiety. Max Daily Amount: 30 mg gabapentin Take 1 capsule 30 capsule 0 08/12/2018 Active (NEURONTIN) 300 MG (300 mg total) capsule by mouth 3 (three) times daily as needed (anxiety). phenytoin extended Take 200 mg by 0 Discontinued (DILANTIN) 200 MG mouth 2 (two) 8 ER capsule times daily. carBAMazepine Take 100 mg by 0 Discontinued (TEGRETOL) 200 mg mouth 2 (two) 8 tablet times daily. diazePAM (VALIUM) Take 10 mg by 0 Discontinued 10 MG tablet mouth every 6 8 (six) hours as needed for Anxiety. FLUoxetine (PROZAC) Take 40 mg by 0 Discontinued 40 MG capsule mouth daily. 8 topiramate Take 50 mg by 0 Discontinued (TOPAMAX) 100 MG mouth 2 (two) 8 tablet times daily . Active Problems Problem Noted Date Obesity 08/13/2018 Severe episode of recurrent major depressive disorder 08/11/2018 Suicide attempt 08/11/2018 Seizure 08/10/2018 Encounters Date Type Specialty Care Team Description 09/07/2018 Abstract Psychiatry Erika Barrientos MD 08/10/2018 - Hospital Cardiology Guicho Bustosmatt Seizure (HCC); 08/13/2018 Encounter MD Bryan Suicide ideation; Vee Quigley MD Psychogenic nonepileptic seizure; Gutierrez Olivares Psychiatric illness; MD Shahla Anxiety 08/10/2018 Abstract Psychiatry Erika Barrientos MD 08/10/2018 Orders Only General Internal Medicine after 09/09/2017 Social History Tobacco Use Types Packs/Day Years Used Date Never Smoker Alcohol Use Drinks/Week oz/Week Comments No Sex Assigned at Date Recorded Not on file Job Start Date Occupation Industry Not on file Not on file Not on file Travel History Travel Start Travel End No recent travel history available. Last Filed Vital Signs Vital Sign Reading Time Taken Blood Pressure 109/70 08/13/2018 7:20 AM CDT Pulse 52 08/13/2018 4:31 AM CDT Temperature 36.4 C (97.5 F) 08/13/2018 7:20 AM CDT Respiratory Rate 16 08/13/2018 4:31 AM CDT Oxygen Saturation 99% 08/13/2018 7:20 AM CDT Inhaled Oxygen Concentration - - Weight 111.6 kg (246 lb) 08/11/2018 8:31 AM CDT Height 177.8 cm (5' 10") 08/10/2018 1:18 AM CDT Body Mass Index 35.3 08/11/2018 8:31 AM CDT Plan of Treatment Not on file Procedures Procedure Name Priority Date/Time Associated Diagnosis Comments RHYTHM STRIP - SCAN 08/16/2018 8:40 AM CDT BASIC METABOLIC Routine 08/13/2018 6:02 AM Results for this PANEL (7) CDT procedure are in the results section. CREATINE KINASE Routine 08/13/2018 6:02 AM Results for this (CK) CDT procedure are in the results section. CREATINE KINASE Routine 08/12/2018 3:49 AM Results for this (CK) CDT procedure are in the results section. BASIC METABOLIC Routine 08/12/2018 3:49 AM Results for this PANEL (7) CDT procedure are in the results section. POCT-GLUCOSE METER Routine 08/11/2018 4:36 PM Results for this CDT procedure are in the results section. CREATINE KINASE Routine 08/11/2018 4:02 AM Results for this (CK) CDT procedure are in the results section. MAGNESIUM Routine 08/11/2018 4:02 AM Results for this CDT procedure are in the results section. BASIC METABOLIC Routine 08/11/2018 4:02 AM Results for this PANEL (7) CDT procedure are in the results section. EEG AWAKE AND Routine 08/10/2018 3:38 PM Results for this DROWSY CDT procedure are in the results section. ECG 12-LEAD Routine 08/10/2018 4:35 AM CDT Procedure Note - Interface, External Ris In - 08/10/2018 4:39 AM CDT Ventricular Rate 69 BPM Atrial Rate 69 BPM P-R Interval 132 ms QRS Duration 88 ms Q-T Interval 390 ms QTC Calculation(Bazett) 417 ms P [place] 14 degrees R [place] 45 degrees T [place] 16 degrees Normal sinus rhythm Normal ECG No previous ECGs available ECG 12-LEAD Routine 08/10/2018 4:35 AM CDT DRUG SCREEN, URINE, Routine 08/10/2018 4:29 AM CDT COMPREHENSIVE URINALYSIS W/ MICROSCOPIC Routine 08/10/2018 4:29 AM CDT CBC W/PLT COUNT & AUTO Routine 08/10/2018 1:55 AM CDT Results for this DIFFERENTIAL procedure are in the results section. LACTIC ACID, VENOUS, WHOLE Routine 08/10/2018 1:55 AM CDT Results for this BLOOD procedure are in the results section. C-REACTIVE PROTEIN Routine 08/10/2018 1:55 AM CDT CREATINE KINASE (CK) Routine 08/10/2018 1:55 AM CDT LAMOTRIGINE LEVEL Routine 08/10/2018 1:55 AM CDT CARBAMAZEPINE LEVEL Routine 08/10/2018 1:55 AM CDT CBC W/PLT COUNT & AUTO Routine 08/10/2018 1:55 AM CDT Results for this DIFFERENTIAL procedure are in the results section. HEPATIC FUNCTION PANEL Routine 08/10/2018 1:55 AM CDT PHOSPHORUS Routine 08/10/2018 1:55 AM CDT MAGNESIUM Routine 08/10/2018 1:55 AM CDT BASIC METABOLIC PANEL (7) Routine 08/10/2018 1:55 AM CDT POCT-HEMOGLOBIN Routine 08/10/2018 1:41 AM CDT POCT-HEMATOCRIT Routine 08/10/2018 1:41 AM CDT POCT-CALCIUM IONIZED Routine 08/10/2018 1:41 AM CDT POCT-GLUCOSE Routine 08/10/2018 1:41 AM CDT POCT-POTASSIUM Routine 08/10/2018 1:41 AM CDT POCT-SODIUM Routine 08/10/2018 1:41 AM CDT POCT-BLOOD GASES, ARTERIAL Routine 08/10/2018 1:41 AM CDT POCT-LACTIC ACID, ARTERIAL Routine 08/10/2018 1:35 AM CDT after 09/09/2017 Results RHYTHM STRIP - SCAN (08/16/2018 8:40 AM CDT) Narrative Performed At Creatine Kinase (CK) (08/13/2018 6:02 AM CDT)Only the most recent of4 resultswithin the time period is included. Total CK 1,709 (H) 29 - 200 U/L [facility] Specimen Blood - Arm, Right Performing Organization Address City/[facility]/Zipcode Phone Number [address] [address] [phone] CENTER Basic Metabolic Panel (08/13/2018 6:02 AM CDT)Only the most recent of4 resultswithin the time period is included. Sodium 140 136 - 145 meq/L [facility] Potassium 4.0 3.5 - 5.1 meq/L [facility] Chloride 115 (H) 98 - 107 meq/L [facility] CO2 20 (L) 22 - 29 meq/L [facility] BUN 7 7 - 21 mg/dL [facility] Creatinine 0.83 0.57 - 1.25 mg/dL [facility] Glucose 95 70 - 105 mg/dL [facility] Calcium 8.6 8.4 - 10.2 mg/dL [facility] EGFR 109Comment: ESTIMATED GFR IS mL/min/1.73 sq m [facility] NOT ACCURATE CREATININE [facility] CENTER CLEARANCE IN PREDICTING GLOMERULAR FILTRATION RATE. ESTIMATED GFR IS NOT APPLICABLE FOR DIALYSIS PATIENTS. Specimen Blood - Arm, Right Performing Organization Address [facility]/Zipcode Phone Number [address] [address] CENTER POC-Glucose meter (08/11/2018 4:36 PM CDT) POC-Glucose Meter 93Comment: TESTED AT 70 - 110 mg/dL [facility] [address] [place] [id number] Specimen Blood Performing Organization Address City/[facility]/Zipcode Phone Number [address] [address] [phone] CENTER Magnesium (08/11/2018 4:02 AM CDT)Only the most recent of2 resultswithin the time period is included. Magnesium 2.1 1.6 - 2.6 mg/dL [facility] Specimen Blood Performing Organization Address City/State/Zipcode Phone Number [facility] [address] [place] [address] CENTER EEG AWAKE AND DROWSY (08/10/2018 3:38 PM CDT) Narrative Performed At Neurophysiology Electroencephalogram Report GE RIS DATE OF REPORT: 08/10/18 Date(s) of Study: 08/10/2018 ACC: [id number] Start time: 1517 hrs Stop time: 1537 hrs ICD-10: R56.9 Unspecified Convulsions CPT Code: 22345 EEG: awake and drowsy <40 min HISTORY: 28 year old male referred for EEG due to increased seizure frequency in the setting of psychiatric issues and suicidal ideation. MEDICATIONS THAT COULD AFFECT EEG: Levetiracetam x1, Lamotrigine ER 200mg, Topiramate 50mg BID, Diazepam TECHNICAL SUMMARY: This is a digital video EEG recorded with 32 input channels reviewed with bipolar and referential montages using the modified combinatorial system nomenclature. Descriptors used for the background, any periodic patterns, and any sporadic discharges per ACNS 2012 Standardized ICU EEG Nomenclature. DESCRIPTION OF RECORD: BACKGROUND: There was a symmetric, reactive to eye opening, and well regulated posterior dominant rhythm of 10 Hz. The anterior to posterior gradient was preserved. There was superimposed low voltage high frequency beta activity seen diffusely. Drowsiness was characterized by alpha attenuation. Stage II sleep was not reached. HYPERVENTILATION: Hyperventilation was not performed. PHOTIC STIMULATION: Photic stimulation was done from 1-30 Hz; no photic driving was seen; photoparoxysmal responses were absent. EVENTS: None ELECTROCARDIOGRAM: A single lead EKG showed normal rate, rhythm, and appearance. IMPRESSION: Normal awake and drowsy EEG CLINICAL COMMENT: An EEG without epileptiform discharges does not exclude the possibility of epilepsy. If the clinical suspicion of epilepsy remains, consider additional EEG recordings. Tisha Brown MD Epilepsy Fellow Shamir Najera MD, MS Clinical Neurophysiology/Epilepsy Attending [facility] Neurophysiology Service Procedure Note Interface, External Ris In - 08/10/2018 4:50 PM CDT Neurophysiology Electroencephalogram Report DATE OF REPORT: 08/10/18 Date(s) of Study: 08/10/2018 ACC: [id number] Start time: 1517 hrs Stop time: 1537 hrs ICD-10: R56.9 Unspecified Convulsions CPT Code: 38040 EEG: awake and drowsy <40 min HISTORY: 28 year old male referred for EEG due to increased seizure frequency in the setting of psychiatric issues and suicidal ideation. MEDICATIONS THAT COULD AFFECT EEG: Levetiracetam x1, Lamotrigine ER 200mg, Topiramate 50mg BID, Diazepam TECHNICAL SUMMARY: This is a digital video EEG recorded with 32 input channels reviewed with bipolar and referential montages using the modified combinatorial system nomenclature. Descriptors used for the background, any periodic patterns, and any sporadic discharges per ACNS 2012 Standardized ICU EEG Nomenclature. DESCRIPTION OF RECORD: BACKGROUND: There was a symmetric, reactive to eye opening, and well regulated posterior dominant rhythm of 10 Hz. The anterior to posterior gradient was preserved. There was superimposed low voltage high frequency beta activity seen diffusely. Drowsiness was characterized by alpha attenuation. Stage II sleep was not reached. HYPERVENTILATION: Hyperventilation was not performed. PHOTIC STIMULATION: Photic stimulation was done from 1-30 Hz; no photic driving was seen; photoparoxysmal responses were absent. EVENTS: None ELECTROCARDIOGRAM: A single lead EKG showed normal rate, rhythm, and appearance. IMPRESSION: Normal awake and drowsy EEG CLINICAL COMMENT: An EEG without epileptiform discharges does not exclude the possibility of epilepsy. If the clinical suspicion of epilepsy remains, consider additional EEG recordings. Tisha Brown MD Epilepsy Fellow Shamir Najera MD, MS Clinical Neurophysiology/Epilepsy Attending [facility] Neurophysiology Service Performing Organization Address City/State/Zipcode Phone Number GE RIS ECG 12 lead (08/10/2018 4:35 AM CDT) Narrative Performed At Ventricular Rate 69 BPM GE MUSE Atrial Rate 69 BPM P-R Interval 132 ms QRS Duration 88 ms Q-T Interval 390 ms QTC Calculation(Bazett) 417 ms P [place] 14 degrees R [place] 45 degrees T [place] 16 degrees Normal sinus rhythm Normal ECG No previous ECGs available Confirmed by Javier LOPEZ BASANT ([id number]) on 08/10/2018 10:49:51 AM Procedure Note Interface, External Ris In - 08/10/2018 10:49 AM CDT Ventricular Rate 69 BPM Atrial Rate 69 BPM P-R Interval 132 ms QRS Duration 88 ms Q-T Interval 390 ms QTC Calculation(Bazett) 417 ms P [place] 14 degrees R [place] 45 degrees T [place] 16 degrees Normal sinus rhythm Normal ECG No previous ECGs available Confirmed by Javier LOPEZ, CORINA ([id number]) on 08/10/2018 10:49:51 AM Performing Organization Address City/State/Zipcode Phone Number [facility] Drug screen, urine, comprehensive (08/10/2018 4:29 AM CDT) Specimen Urine Narrative Performed At Urinalysis w/ Microscopic (08/10/2018 4:29 AM CDT) Color, UA Yellow [facility] Clarity, UA Clear [facility] Specific [place], UA 1.011 1.001 - 1.035 [facility] pH, UA 7.0 5.0 - 8.0 [facility] Protein, UA Negative Negative [facility] Glucose, UA Negative Negative [facility] Ketones, UA Negative Negative [facility] Bilirubin, UA Negative Negative [facility] Blood, UA Negative Negative [facility] Nitrite, UA Negative Negative [facility] Leukocytes, UA Negative Negative [facility] Urobilinogen, UA 2.0 (H) 0.2 - 1.0 mg/dL [facility] RBC, UA <1 /HPF [facility] WBC, UA 0 /HPF [facility] Specimen Source [facility] Specimen Urine Performing Organization Address City/State/Zipcode Phone Number [facility] [address] [place], [place] [id number] [phone] CENTER C-Reactive Protein (08/10/2018 1:55 AM CDT) CRP 0.45 0.00 - 0.50 mg/dL [facility] Specimen Blood Performing Organization Address City/State/Zipcode Phone Number [facility] [address] [place] [address] [phone] [place] CBC with platelet count + automated diff (08/10/2018 1:55 AM CDT) WBC 7.7 3.5 - 10.5 K/L [facility] RBC 4.16 (L) 4.63 - 6.08 M/L [facility] Hemoglobin 12.3 (L) 13.7 - 17.5 GM/DL [facility] Hematocrit 36.8 (L) 40.1 - 51.0 % [facility] MCV 88.5 79.0 - 92.[address] [facility] MCH 29.6 25.7 - 32.[address] [facility] MCHC 33.4 32.3 - 36.5 GM/DL [facility] RDW 13.4 11.6 - 14.4 % [facility] Platelets 195 150 - 450 K/CU MM [facility] MPV 11.2 9.4 - 12.[address] [facility] nRBC 0 0 - 0 /[address] [facility] % Neutros 58 % [facility] % Lymphs 30 % [facility] % Monos 10 % [facility] % Eos 2 % [facility] % Baso 1 % [facility] # Neutros 4.46 1.78 - 5.38 K/L [facility] # Lymphs 2.31 1.32 - 3.57 K/L [facility] # Monos 0.74 0.30 - 0.82 K/L [facility] # Eos 0.13 0.04 - 0.54 K/L [facility] # Baso 0.04 0.01 - 0.08 K/L [facility] Immature Granulocytes-Relative 0 0 - 1 % [facility] Specimen Blood Performing Organization Address City/[facility] Phone Number [address] [address] CENTER Lactic acid, venous, whole blood (08/10/2018 1:55 AM CDT) Lactate, Venous 1.0Comment: Specimen 0.5 - 2.2 mmol/L [facility] slightly hemolyzed [facility] Specimen Blood Narrative Performed At [facility] Effective 03/18/2016: Units/Reference Range Change New: 0.5-2.2 mmol/LPrevious: 5-20 mg/dL Performing Organization Address City/[facility] Phone Number [address] [address] CENTER Lamotrigine level (08/10/2018 1:55 AM CDT) Lamotrigine 5.6 4.0 - 18.0 mcg/mL [facility] Comment: INCORPORATED This test was developed and its analytical performance characteristics have been determined by [email or web address] [place] [facility]. It has not been cleared or approved by the [place] Food and Drug Administration. This assay has been validated pursuant to the CLIA regulations and is used for clinical purposes. Specimen Blood Narrative Performed At Performing Lab [facility] *SPL Alianza Vanesa Fry [facility], [address] [place] [phone] Jhonny Stanley MD, PhD Performing Organization Address City/[facility] Phone Number [facility], [place] [address] INCORPORATED [address] [facility] Phosphorus (08/10/2018 1:55 AM CDT) Phosphorus 2.8 2.3 - 4.7 mg/dL [facility] Specimen Blood Performing Organization Address City/[facility] Phone Number [address] [address] [place] Carbamazepine level (08/10/2018 1:55 AM CDT) Carbamazepine Lvl <0.5 (L) 4.0 - 12.0 ug/mL [facility] Specimen Blood Performing Organization Address [facility] Phone Number [address] [address] [phone] [place] Hepatic function panel (08/10/2018 1:55 AM CDT) Protein, Total 6.5 6.0 - 8.3 gm/dL [facility] Albumin 3.9 3.5 - 5.0 g/dL [facility] Total Bilirubin 0.8 0.2 - 1.2 mg/dL [facility] Bilirubin, Direct 0.3 0.1 - 0.5 mg/dL [facility] Alkaline Phosphatase 85 40 - 150 U/L [facility] AST 43 (H) 5 - 34 U/L [facility] ALT 33 6 - 55 U/L [facility] Specimen Blood Performing Organization Address [facility] Phone Number [address] [address] [place] POCT-HEMATOCRIT (08/10/2018 1:41 AM CDT) POC-Hematocrit 35 (L)Comment: TESTED AT 40 - 50 % [address] [address] Specimen Blood Performing Organization Address City/[facility] Phone Number [address] [address] CENTER POCT-HEMOGLOBIN (08/10/2018 1:41 AM CDT) POC-Hemoglobin 11.9 (L)Comment: TESTED AT 13.0 - 16.8 g/dL [address] [address] AT [address] [address] Specimen Blood Performing Organization Address [facility] Phone Number [address] [address] [place] POCT-GLUCOSE (08/10/2018 1:41 AM CDT) POC-Glucose 105Comment: TESTED AT [facility] 70 - 110 mg/dL [address] [address] Specimen Blood Performing Organization Address [facility] Phone Number [address] [address] [phone] [place] POC-Sodium (08/10/2018 1:41 AM CDT) POC-Sodium 140Comment: TESTED AT [facility] 135 - 148 meq/L [address] [address] Specimen Blood Performing Organization Address [facility] Phone Number [address] [address] [place] POC-Potassium (08/10/2018 1:41 AM CDT) POC-Potassium 3.4 (L)Comment: TESTED AT 3.6 - 5.5 meq/L [address] [address] Specimen Blood Performing Organization Address [facility] Phone Number [address] [address] CENTER POC-Calcium ionized (08/10/2018 1:41 AM CDT) POC-Calcium Ionized 1.15Comment: TESTED AT 1.12 - 1.27 mmol/L [address] [place] [address] Specimen Blood Performing Organization Address City/State/Zipcode Phone Number [address] [phone] [place] POC-Blood gases, arterial (08/10/2018 1:41 AM CDT) Temp. Celsius-POC 37.0 [facility] FIO2-POC Comment: TESTED AT [address] [address] pH, Arterial-POC 7.396 7.350 - 7.450 [facility] PCO2, Arterial-POC 35.3 35.0 - 45.[address] [facility] PO2, Arterial-POC 104.0 (H) 80.0 - 90.[address] [facility] SO2, Arterial-POC 98.0 (H) 96.0 - 97.0 % [facility] HCO3, Arterilal-POC 21.7 21.0 - 29.0 meq/L [facility] BE, Arterial-POC -3.0 (L) -2.0 - 3.0 meq/L [facility] Specimen Blood Performing Organization Address City/[facility] Phone Number [address] [address] [place] POC-Lactic Acid, Arterial (08/10/2018 1:35 AM CDT) POC-Lactic Acid, 0.9Comment: TESTED AT 0.4 - 1.3 mmol/L [facility] Arterial [address] [address] Specimen Blood Performing Organization Address City/State/Zipcode Phone Number [address] [address] CENTER after 09/09/2017 Insurance Payer Benefit Plan / Subscriber ID Type Phone Address Group BLUE CROSS/BLUE BCBS PPO POS EPO xxxxxxxxxxxx PPO [phone] [address] [place] [address] Advance Directives For more information, please contact:[address] [phone] Code Status Date Activated Date Inactivated Comments Full Code 08/10/2018 1:35 AM 08/13/2018 8:26 PM This code status was determined by: Patient
--- OUTSIDE RECORDS SUMMARY | 2018-09-10 01:11 | XMS REPORT ---
:1990 [facility] [address] [place] [address] Care Team Providers Name Role Phone TAZ BRUCE Unavailable Unavailable Problems This patient has no known problems. Allergies, Adverse Reactions, Alerts This patient has no known allergies or adverse reactions. Medications This patient has no known medications. Results Test Description Test Time Test Comments Text Results Atomic Results Result Comments BASIC METABOLIC PANEL 2018-08-13 07:07:00 Test Item Value Reference Range Comments SODIUM (BEAKER) (test 140 meq/L 136-145 vhyq=626) POTASSIUM (BEAKER) (test 4.0 meq/L 3.5-5.1 rgwj=918) CHLORIDE (BEAKER) (test 115 meq/L 98-107 pjfa=976) CO2 (BEAKER) (test 20 meq/L 22-29 spif=174) BLOOD UREA NITROGEN 7 mg/dL 7-21 (BEAKER) (test waqb=775) CREATININE (BEAKER) (test 0.83 mg/dL 0.57-1.25 yhlx=720) GLUCOSE RANDOM (BEAKER) 95 mg/dL 70-105 (test lusv=426) CALCIUM (BEAKER) (test 8.6 mg/dL 8.4-10.2 hgsi=941) EGFR (BEAKER) (test 109 mL/min/1.73 sq m ESTIMATED GFR IS NOT vvys=6094) ACCURATE CREATININE CLEARANCE IN PREDICTING GLOMERULAR FILTRATION RATE. ESTIMATED GFR IS NOT APPLICABLE FOR DIALYSIS PATIENTS. CREATINE KINASE (CK)2018-08-13 07:07:00 Test Item Value Reference Range Comments CREATINE KINASE TOTAL (BEAKER) (test dcqk=570) 1709 U/L 29-200 BASIC METABOLIC [id number] 05:19:00 Test Item Value Reference Range Comments SODIUM (BEAKER) (test 141 meq/L 136-145 qbwl=014) POTASSIUM (BEAKER) (test 4.1 meq/L 3.5-5.1 bfyg=062) CHLORIDE (BEAKER) (test 117 meq/L 98-107 mtkt=549) CO2 (BEAKER) (test 19 meq/L 22-29 zphf=007) BLOOD UREA NITROGEN 11 mg/dL 7-21 (BEAKER) (test pjny=895) CREATININE (BEAKER) (test 0.84 mg/dL 0.57-1.25 uhdx=955) GLUCOSE RANDOM (BEAKER) 97 mg/dL 70-105 (test aore=298) CALCIUM (BEAKER) (test 8.8 mg/dL 8.4-10.2 wexi=817) EGFR (BEAKER) (test 107 mL/min/1.73 sq m ESTIMATED GFR IS NOT dkmz=3451) ACCURATE CREATININE CLEARANCE IN PREDICTING GLOMERULAR FILTRATION RATE. ESTIMATED GFR IS NOT APPLICABLE FOR DIALYSIS PATIENTS. CREATINE KINASE (CK)2018-08-12 05:19:00 Test Item Value Reference Range Comments CREATINE KINASE TOTAL (BEAKER) (test ycwc=318) 1766 U/L 29-200 POCT-GLUCOSE [id number] 17:02:00 Test Item Value Reference Range Comments POC-GLUCOSE METER (BEAKER) 93 mg/dL 70-[address] [facility] [address] [facility] (test jqgt=3000) [facility] [address] [id number] 04:54:00 Test Item Value Reference Range Comments MAGNESIUM (BEAKER) (test squg=971) 2.1 mg/dL 1.6-2.6 BASIC METABOLIC [id number] 04:54:00 Test Item Value Reference Range Comments SODIUM (BEAKER) (test 142 meq/L 136-145 kiie=615) POTASSIUM (BEAKER) (test 4.4 meq/L 3.5-5.1 jwip=246) CHLORIDE (BEAKER) (test 116 meq/L 98-107 yihr=518) CO2 (BEAKER) (test 22 meq/L 22-29 dbvx=416) BLOOD UREA NITROGEN 8 mg/dL 7-21 (BEAKER) (test eoqd=972) CREATININE (BEAKER) (test 0.84 mg/dL 0.57-1.25 xaiv=497) GLUCOSE RANDOM (BEAKER) 88 mg/dL 70-105 (test yeut=789) CALCIUM (BEAKER) (test 9.0 mg/dL 8.4-10.2 lytq=653) EGFR (MAXIMINO) (test 107 mL/min/1.73 sq m ESTIMATED GFR IS NOT mumg=9316) ACCURATE CREATININE CLEARANCE IN PREDICTING GLOMERULAR FILTRATION RATE. ESTIMATED GFR IS NOT APPLICABLE FOR DIALYSIS PATIENTS. CREATINE KINASE (CK)2018-08-11 04:54:00 Test Item Value Reference Range Comments CREATINE KINASE TOTAL (MAXIMINO) (test jewk=421) 2031 U/L 29-200 EEG AWAKE AND [id number] 16:50:00Reason for exam:->seizure disorderNeurophysiology Electroencephalogram Report DATE OF REPORT: 08/10/18Date( s) of Study: 08/10/2018ACC: [id number]: 18-8Start time: 1517 hrsStop time: 1537 hrsICD-10: R56.9 Unspecified ConvulsionsCPT Code: 42441 EEG: awake and drowsy <40 min HISTORY: [...] and appearance. IMPRESSION: Normal awake and drowsy EEGCLINICAL COMMENT: An EEG without epileptiform discharges does not exclude the possibility of epilepsy. If the clinical suspicion of epilepsy remains, consider additional EEG recordings. Tisha Brown MDEpilepsy Fellow Lisandro Najera MD, MSClinical Neurophysiology/Epilepsy Attending [facility] Neurophysiology Service URINALYSIS W/ [id number] 05: 20:00 Test Item Value Reference Range Comments COLOR (BEAKER) (test cvqw=997) Yellow CLARITY (BEAKER) (test ysay=679) Clear SPECIFIC GRAVITY UA (BEAKER) (test kohc=587) 1.011 1.001-1.035 PH UA (BEAKER) (test imuz=245) 7.0 5.0-8.0 PROTEIN UA (BEAKER) (test dhat=553) Negative Negative GLUCOSE UA (BEAKER) (test uleq=817) Negative Negative KETONES UA (BEAKER) (test olau=697) Negative Negative BILIRUBIN UA (BEAKER) (test tfof=865) Negative Negative BLOOD UA (BEAKER) (test syne=220) Negative Negative NITRITE UA (BEAKER) (test ialt=930) Negative Negative LEUKOCYTE ESTERASE UA (BEAKER) (test ebez=946) Negative Negative UROBILINOGEN UA (BEAKER) (test dmxq=715) 2.0 mg/dL 0.2-1.0 RBC UA (BEAKER) (test phue=484) < /HPF WBC UA (BEAKER) (test gwyg=425) 0 /HPF SOURCE(BEAKER) (test mgcw=6125) [id number] 03:17:00 Test Item Value Reference Range Comments CARBAMAZEPINE LEVEL (BEAKER) (test xggb=105) < ug/mL 4.0-12.0 [id number] 02:33:00 Test Item Value Reference Range Comments PHOSPHORUS (BEAKER) (test emll=975) 2.8 mg/dL 2.3-4.7 [id number] 02:33:00 Test Item Value Reference Range Comments MAGNESIUM (BEAKER) (test nvul=805) 2.2 mg/dL 1.6-2.6 BASIC METABOLIC [id number] 02:33:00 Test Item Value Reference Range Comments SODIUM (BEAKER) (test 138 meq/L 136-145 vznz=654) POTASSIUM (BEAKER) (test 3.4 meq/L 3.5-5.1 vyqk=144) CHLORIDE (BEAKER) (test 109 meq/L 98-107 ijkz=177) CO2 (BEAKER) (test 21 meq/L 22-29 tyaa=523) BLOOD UREA NITROGEN 16 mg/dL 7-21 (BEAKER) (test qqbf=402) CREATININE (BEAKER) (test 0.83 mg/dL 0.57-1.25 zdib=340) GLUCOSE RANDOM (BEAKER) 105 mg/dL 70-105 (test dthh=717) CALCIUM (BEAKER) (test 8.7 mg/dL 8.4-10.2 xhqd=335) EGFR (BEAKER) (test 109 mL/min/1.73 sq m ESTIMATED GFR IS NOT frtl=3737) ACCURATE CREATININE CLEARANCE IN PREDICTING GLOMERULAR FILTRATION RATE. ESTIMATED GFR IS NOT APPLICABLE FOR DIALYSIS PATIENTS. HEPATIC FUNCTION [id number] 02:33:00 Test Item Value Reference Range Comments TOTAL PROTEIN (BEAKER) (test adfj=106) 6.5 gm/dL 6.0-8.3 ALBUMIN (BEAKER) (test pkmr=8830) 3.9 g/dL 3.5-5.0 BILIRUBIN TOTAL (BEAKER) (test mnng=707) 0.8 mg/dL 0.2-1.2 BILIRUBIN DIRECT (BEAKER) (test twgt=816) 0.3 mg/dL 0.1-0.5 ALKALINE PHOSPHATASE (BEAKER) (test oyun=201) 85 U/L 40-150 AST (SGOT) (BEAKER) (test mhkj=858) 43 U/L 5-34 ALT (SGPT) (BEAKER) (test daqt=568) 33 U/L 6-55 CREATINE KINASE (CK)2018-08-10 02:33:00 Test Item Value Reference Range Comments CREATINE KINASE TOTAL (BEAKER) (test gqfh=976) 968 U/L 29-200 C-REACTIVE [id number] 02:33:00 Test Item Value Reference Range Comments C-REACTIVE PROTEIN (BEAKER) (test pkbk=317) 0.45 mg/dL 0.00-0.50 LACTIC ACID, VENOUS, WHOLE [id number] 02:26:00 Test Item Value Reference Range Comments LACTATE BLOOD VENOUS (2) 1.0 mmol/L 0.5-2.2 Specimen slightly hemolyzed (BEAKER) (test qtkb=5637) Effective 03/18/2016: Units/Reference Range ChangeNew: 0.5-2.2 mmol/L Previous: 5 -20 mg/dLCBC W/PLT COUNT & AUTO [id number] 02:05:00 Test Item Value Reference Range Comments WHITE BLOOD CELL COUNT (BEAKER) (test awvv=627) 7.7 K/ L 3.5-10.5 RED BLOOD CELL COUNT (BEAKER) (test tjeo=165) 4.16 M/ L 4.63-6.08 HEMOGLOBIN (BEAKER) (test ahfx=895) 12.3 GM/DL 13.7-17.5 HEMATOCRIT (BEAKER) (test mhth=433) 36.8 % 40.1-51.0 MEAN CORPUSCULAR VOLUME (BEAKER) (test tqmo=231) 88.5 fL 79.0-92.2 MEAN CORPUSCULAR HEMOGLOBIN (BEAKER) (test 29.6 pg 25.7-32.2 juxr=835) MEAN CORPUSCULAR HEMOGLOBIN CONC (BEAKER) (test 33.4 GM/DL 32.3-36.5 fnme=046) RED CELL DISTRIBUTION WIDTH (BEAKER) (test 13.4 % 11.6-14.4 ahhz=964) PLATELET COUNT (BEAKER) (test wrfu=533) 195 K/CU MM 150-450 MEAN PLATELET VOLUME (BEAKER) (test aicz=926) 11.2 fL 9.4-12.4 NUCLEATED RED BLOOD CELLS (BEAKER) (test 0 /100 WBC 0-0 ddaw=655) NEUTROPHILS RELATIVE PERCENT (BEAKER) (test 58 % pwtz=393) LYMPHOCYTES RELATIVE PERCENT (BEAKER) (test 30 % aihr=341) MONOCYTES RELATIVE PERCENT (BEAKER) (test 10 % vyju=323) EOSINOPHILS RELATIVE PERCENT (BEAKER) (test 2 % qdun=927) BASOPHILS RELATIVE PERCENT (BEAKER) (test 1 % zvqy=100) NEUTROPHILS ABSOLUTE COUNT (BEAKER) (test 4.46 K/ L 1.78-5.38 uhnl=668) LYMPHOCYTES ABSOLUTE COUNT (BEAKER) (test 2.31 K/ L 1.32-3.57 tfnw=932) MONOCYTES ABSOLUTE COUNT (BEAKER) (test 0.74 K/ L 0.30-0.82 sprq=039) EOSINOPHILS ABSOLUTE COUNT (BEAKER) (test 0.13 K/ L 0.04-0.54 gvqq=071) BASOPHILS ABSOLUTE COUNT (BEAKER) (test 0.04 K/ L 0.01-0.08 hepj=227) IMMATURE GRANULOCYTES-RELATIVE PERCENT (BEAKER) 0 % 0-1 (test xtcp=6221) POCT-BLOOD GASES, [id number] 01:50:00 Test Item Value Reference Range Comments TEMP, CELSIUS-POC (BEAKER) 37.0 (test nvmt=0293) FIO2-POC (BEAKER) (test TESTED AT [address] qxsx=6858) [place] [address] PH, ARTERIAL-POC (BEAKER) 7.396 7.350-7.450 (test rktj=9094) PCO2, ARTERIAL-POC (BEAKER) 35.3 mm Hg 35.0-45.0 (test jico=4260) PO2, ARTERIAL-POC (BEAKER) 104.0 mm Hg 80.0-90.0 (test shmk=1963) SO2, ARTERIAL-POC (BEAKER) 98.0 % 96.0-97.0 (test joaq=2848) HCO3, ARTERIAL-POC (BEAKER) 21.7 meq/L 21.0-29.0 (test xbsl=5643) BASE EXCESS, ARTERIAL-POC -3.0 meq/L -2.0-3.0 (BEAKER) (test xckq=3425) [id number] 01:50:00 Test Item Value Reference Range Comments POC-SODIUM (BEAKER) (test 140 meq/L 135-148 [address]) [place] [address] [id number] 01:50:00 Test Item Value Reference Range Comments POC-POTASSIUM (BEAKER) (test 3.4 meq/L 3.6-5.5 [address] cnfo[address]377) [place] [address] [id number] 01:50:00 Test Item Value Reference Range Comments POC-GLUCOSE (BEAKER) (test 105 mg/dL 70-110 TESTED AT [place] [address] [address] jlht=4284) [place] [address] POCT-CALCIUM [id number] 01:50:00 Test Item Value Reference Range Comments POC-CALCIUM IONIZED (BEAKER) 1.15 mmol/L 1.12-1.27 TESTED AT [address] (test ekop=1019) [place] [address] [id number] 01:50:00 Test Item Value Reference Range Comments POC-HEMATOCRIT (BEAKER) (test 35 % 40-50 TESTED AT [address] hfim=1718) [place] [address] [id number] 01:50:00 Test Item Value Reference Range Comments POC-HEMOGLOBIN (BEAKER) 11.9 g/dL 13.0-16.8 TESTED [address] (test zgeg=4595) [place] [address]TESTED AT [place] [address] POCT-LACTIC ACID, [id number] 01:49:00 Test Item Value Reference Range Comments POC-LACTIC ACID, ARTERIAL 0.9 mmol/L 0.4-1.3 [address] (BEAKER) (test lnld=5285) [place] [address]
[2018-09-10] MEDS ORDERED: LORazepam 2 MG/ML VIAL ONE (01:27)
[2018-09-10] MEDS ORDERED: DIAZEPAM 10 MG/2 ML INJ SYRINGE ONE ×4 (01:52→02:39)
[2018-09-10] MEDS ORDERED: NA CHLORIDE 0.9% 1,000 ML ONE ×3 (01:57→03:24)
[2018-09-10 02:01] LABS: Absolute Lymphocytes (CBC) 4.6 K/uL (0.7-4.9); Absolute Monocytes 1.3 K/uL (0.1-1.3); Basophils % 0.4 % (0-1.3); Eosinophils % 0.2 % (0-4.4); Hematocrit 44.8 % (39.6-49.0); Lymphocytes % 35.4 % (15.3-44.8); MCH 30.5 pg (27.0-35.0); MCV 90.4 fL (80-100); MPV 9.4 fL (7.6-11.3); Monocytes % 10.1 % (3.3-12.3); RBC Red Blood Cell Count 4.95 M/uL (4.33-5.43)
[2018-09-10] MEDS ORDERED: LEVETIRACETAM 500 MG/5 ML VIAL IV ONE (02:06)
[2018-09-10 02:08] LABS: Protime INR 1.05
[2018-09-10] MEDS ORDERED: NA CHLORIDE 0.9% 100 ML IV ONE ×2 (02:08→02:56)
[2018-09-10] MEDS ORDERED: THIAMINE 200 MG/2 ML INJ ONE (02:10)
[2018-09-10] MEDS ORDERED: MULTIVITAMINS 10 ML VIAL (INJ) IV ONE (02:11)
[2018-09-10] MEDS ORDERED: FOLIC ACID 5 MG/ML VIAL ONE (02:12)
[2018-09-10 02:19] LABS: Barbiturates NEGATIVE (NEGATIVE); Benzodiazepines POSITIVE (NEGATIVE); Cocaine NEGATIVE (NEGATIVE); METHAMPHETAM NEGATIVE (NEGATIVE); Methadone NEGATIVE (NEGATIVE); Opiates NEGATIVE (NEGATIVE); Phencyclidine NEGATIVE (NEGATIVE); THC Cannibis POSITIVE (NEGATIVE)
[2018-09-10 02:28] LABS: ALT/SGPT 36 U/L (12-78); AST/SGOT 22 U/L (15-37); Alkaline Phosphatase 146 U/L (45-117); BUN Blood Urea Nitrogen 18 mg/dL (7-18); Bicarbonate 18 mmol/L (21-32); Bilirubin Direct < 0.1 mg/dL (0-0.2); Bilirubin Total 0.2 mg/dL (0.2-1.0); Glucose Level 101 mg/dL (74-106); Phenytoin (Dilantin) Level 7.7 ug/mL (10.0-20.0); Potassium 3.6 mmol/L (3.5-5.1); Protein, Total 7.8 g/dL (6.4-8.2); Sodium Level 143 mmol/L (136-145)
[2018-09-10 02:30] LABS: Urine Blood 1+ (NEG); Urine Glucose NEGATIVE (NEG); Urine Protein NEGATIVE (NEG); Urine Specific Gravity >1.030 (1.005-1.030)
[2018-09-10] MEDS ORDERED: FOSPHENYTOIN PE 500 MG/10 ML VIAL ONE (02:57)
[2018-09-10] MEDS ORDERED: RSI MEDICATION KIT IV ONE (03:24)
[2018-09-10] MEDS ORDERED: PROPOFOL 1,000 MG/100 ML VIAL IV ONE ×2 (03:24→06:08)
[2018-09-10] MEDS ORDERED: FENTANYL CITR 100 MCG/2 ML ONE ×2 (03:30→03:57)
[2018-09-10] MEDS ORDERED: KETAMINE HCL 500 MG/5 ML VIAL ONE (04:40)
[2018-09-10] MEDS ORDERED: NA CHLORIDE 0.9% 500 ML ONE (04:46)
[2018-09-10] MEDS ORDERED: MIDAZOLAM HCL 2 MG/2 ML INJ ONE (04:59)
--- NOTE | 2018-09-10 05:26 | ER ---
Nurse's Notes [facility] Name: Alfie Zavala Age: 28 yrs Sex: Male : 1990 Arrival Date: 09/10/2018 Time: 01:10 Bed 3 Private MD: Diagnosis: Absence epileptic syndrome, intractable, with status epilepticus Presentation: 09/10 01:15 Presenting complaint: Patient states: I started having seizures yesterday. I had one jb4 yesterday and 2 today. Transition of care: patient was not received from another setting of care. Onset of symptoms was September 09, 2018. Risk Assessment: Do you want to hurt yourself or someone else? Patient reports no desire to harm self or others. Initial Sepsis Screen: Does the patient meet any 2 criteria? HR > 90 bpm. Yes Does the patient have a suspected source of infection? No. Patient's initial sepsis screen is negative. Care prior to arrival: None. 01:15 Method Of Arrival: Ambulatory jb4 01:15 Acuity: KEN 2 jb4 Historical: - Allergies: 01:56 Ativan; jb4 - Home Meds: 01:56 sumatriptan oral 50 mg as needed [Active]; jb4 02:40 Tegretol 200 mg Oral tab 1 tab every 12 hours [Active]; lamotrigine 200 mg Oral tab 1 fc tab 2 times per day [Active]; fluoxetine 40 mg Oral cap 1 cap once daily [Active]; Phenytoin 100 mg Oral 2 tabs 3 times per day [Active]; diazepam 10 mg Oral tab 1 tab daily prn for Acute Repetitive Seizures, Anxiety [Active]; - PMHx: 02:40 Depression; Seizures; Headaches; fc - PSHx: 02:40 Appendectomy; fc - Immunization history:: Last tetanus immunization: unknown. - Social history:: Smoking status: Patient/guardian denies using tobacco, Patient/guardian denies using alcohol, street drugs. - Ebola Screening: : Patient negative for fever greater than or equal to 101.5 degrees Fahrenheit, and additional compatible Ebola Virus Disease symptoms Patient denies exposure to infectious person Patient denies travel to an Ebola-affected area in the 21 days before illness onset. Screenin:15 Abuse screen: Denies threats or abuse. Nutritional screening: On. Tuberculosis fc screening: No symptoms or risk factors identified. 01:20 Fall Risk Fall in past 12 months (25 points). Secondary diagnosis (15 points) seizures, jb4 IV access (20 points). Total Adams Fall Scale indicates High Risk Score (45 or more points). Fall prevention measures have been instituted. Side Rails Up X 2 Placed Close to Nursing Station Frequent Obs/Assessments Occuring Family Present and informed to notify staff if the need to leave the bedside. Assessment: 01:15 General: Appears in no apparent distress. uncomfortable, Behavior is anxious, Pt jb4 reports having an aura indicating oncoming seizure.. Pain: Complains of pain in Headache. Neuro: Level of Consciousness is awake, alert, obeys commands, Oriented to person, place, time, situation. Cardiovascular: Heart tones S1 S2 present Patient's skin is warm and dry. Respiratory: Airway is patent Respiratory effort is even, unlabored, Respiratory pattern is regular, symmetrical. GI: No signs and/or symptoms were reported involving the gastrointestinal system. : No signs and/or symptoms were reported regarding the genitourinary system. EENT: No signs and/or symptoms were reported regarding the EENT system. Derm: Skin is intact, Skin is pink, warm \T\ dry. 01:20 Reassessment: actively Seizing Provider Notified. jb4 01:30 Reassessment: actively Seizing Provider Notified. jb4 02:30 Reassessment: Pt is awake, alert. Postictal from seizure. Respirations even and jb4 unlabored. 02:40 Reassessment: actively Seizing Provider Notified. jb4 03:00 Reassessment: actively Seizing Provider Notified. jb4 03:36 Reassessment: ET tube put in place. A/C 16, TV 550, VFY8=722%, PEEP 5. jb4 03:40 Reassessment: Holding NG tube per Dr. Holt due to stimulation. jb4 04:00 Reassessment: Pt sedated respirations even and unlabored. no s/s of distress noted at jb4 this time. 05:00 Reassessment: Patient appears in no apparent distress at this time. No changes from jb4 previously documented assessment. Patient and/or family updated on plan of care and expected duration. Pain level reassessed. Pt is still actively seizing while sedated. Provider notified. Vital Signs: 01:15 BP 119 / 73; Pulse 110; Resp 20; Temp 98.2(O); Pulse Ox 97% on R/A; Weight 108.41 kg fc (R); Height 5 ft. 11 in. (180.34 cm) (R); Pain 8/10; 01:30 BP 117 / 71; Pulse 102; Resp 24; Pulse Ox 99% on R/A; mt 01:52 BP 127 / 72; Pulse 126; Resp 24; Pulse Ox 92% on R/A; mt 02:30 BP 106 / 66; Pulse 103; Resp 20; Pulse Ox 96% on R/A; mt 02:45 BP 88 / 44; Pulse 102; Resp 20; Pulse Ox 99% on 2 lpm NC; mt 03:27 BP 138 / 101; Pulse 114; Resp 16; Pulse Ox 100% on NC; jb4 03:31 BP 147 / 112; Pulse 116; Resp 24; Pulse Ox 93% on R/A; jb4 03:33 BP 104 / 71; Pulse 87; Resp 16 A; Pulse Ox 96% on 100% BVM; ak1 03:40 BP 88 / 53; Pulse 88; Resp 16; Pulse Ox 96% on 100% FiO2 ETT vent; ak1 03:45 BP 121 / 83; Pulse 100; Resp 22; Pulse Ox 96% on 100% FiO2 ETT vent; ak1 03:50 BP 124 / 67; Pulse 125; Resp 21; Pulse Ox 97% on 100% FiO2 ETT vent; ak1 03:55 BP 97 / 57; Pulse 91; Resp 15; Pulse Ox 98% on 100% FiO2 ETT vent; ak1 04:00 BP 100 / 74; Pulse 91; Resp 15; Pulse Ox 97% on 100% FiO2 ETT vent; ak1 04:25 BP 114 / 62; Pulse 97; Resp 21; Pulse Ox 99% on 100% FiO2 ETT vent; ak1 04:30 BP 105 / 67; Pulse 89; Resp 17; Pulse Ox 100% on 100% FiO2 ETT vent; ak1 04:35 BP 127 / 87; Pulse 94; Resp 19; Pulse Ox 100% on 100% FiO2 ETT vent; ak1 04:40 BP 117 / 73; Pulse 84; Resp 19; Pulse Ox 100% on 100% FiO2 ETT vent; ak1 04:45 BP 134 / 94; Pulse 94; Resp 18; Pulse Ox 100% on 100% FiO2 ETT vent; jb4 04:50 BP 124 / 80; Pulse 89; Resp 17; Pulse Ox 100% on 100% FiO2 ETT vent; jb4 04:55 BP 121 / 82; Pulse 87; Resp 17; Pulse Ox 100% on 100% FiO2 ETT vent; jb4 05:00 BP 108 / 68; Pulse 88; Resp 17; Pulse Ox 100% on 100% FiO2 ETT vent; jb4 05:05 BP 105 / 66; Pulse 86; Resp 18; Pulse Ox 100% on 100% FiO2 ETT vent; jb4 05:10 BP 107 / 75; Pulse 81; Resp 16; Pulse Ox 100% on 100% FiO2 ETT vent; jb4 05:15 BP 121 / 80; Pulse 84; Resp 16; Pulse Ox 100% on 100% FiO2 ETT vent; jb4 05:20 BP 117 / 73; Pulse 82; Resp 17; Pulse Ox 100% on 100% FiO2 ETT vent; jb4 05:25 BP 101 / 70; Pulse 82; Resp 18; Pulse Ox 100% on 100% FiO2 ETT vent; jb4 05:30 BP 97 / 69; Pulse 82; Resp 17; Pulse Ox 100% on 100% FiO2 ETT vent; jb4 05:35 BP 101 / 67; Pulse 77; Resp 18; Pulse Ox 100% on 100% FiO2 ETT vent; jb4 05:40 BP 105 / 74; Pulse 75; Resp 18; Pulse Ox 100% on 100% FiO2 ETT vent; jb4 05:45 BP 107 / 76; Pulse 75; Resp 18; Pulse Ox 100% on 100% FiO2 ETT vent; jb4 05:50 BP 103 / 74; Pulse 77; Resp 18; Pulse Ox 100% on 100% FiO2 ETT vent; jb4 01:15 Body Mass Index 33.33 (108.41 kg, 180.34 cm) [place] Coma Score: 01:15 Eye Response: spontaneous(4). Verbal Response: oriented(5). Motor Response: obeys 4 commands(6). Total: 15. ED Course: 01:10 Patient arrived in ED. am2 01:13 Mitchel Lopez, RN is Primary Nurse. jb4 01:15 Arm band placed on Patient placed in an exam room, on a stretcher. 01:15 Patient has correct armband on for positive identification. Bed in low position. Call fc light in reach. Side rails up X2. Seizure precautions initiated. 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 Pulse ox on. NIBP on. 01:18 Blue Jaeger PA is PHCP. cp 01:18 Juan Cyr MD is Attending Physician. cp 01:22 Inserted saline lock: 20 gauge in right antecubital area, using aseptic technique. fc ,using aseptic technique. per Briana CODY. 01:25 EKG done, by ED staff, reviewed by uJan Cyr MD. Inserted saline lock: 20 gauge in mt left antecubital area, using aseptic technique. Blood collected. 01:42 Triage completed. jb4 02:13 Radiology exam delayed due to Currently having seizure. ED will call when ready to have kw1 Head CT done. 02:30 Radiology exam delayed due to Currently having seizures. ED will call when patient is kw1 ready to have Head CT done. 03:16 Note: Unable to scan patient. Took patient to CT and he continuously seized. Was taken kw1 back to ED by charge nurse and attending nurse.. 03:53 XRAY Chest (1 view) In Process Unspecified. EDMS 04:20 CT Head Brain wo Cont In Process Unspecified. EDMS 04:[address] via stretcher. kw1 04:22 CT completed. Patient tolerated procedure well. Patient moved back from CT. kw1 06:21 No provider procedures requiring assistance completed. Patient transferred, IV remains jb4 in place. Restraints: 04:00 Non-Violent Restraint: Order obtained. Initiated on September 10, 2018 at 04:00 ak1 Actions/Behavior observed: has decreased level of consciousness, repeated attempts to remove/tamper lines/tubes/IV med devices \T\ wound dressing, repeated attempts to remove artifical airway/mechanical resp support, Less restrictive alternatives attempted: decrease environmental stimuli, 1:1 patient care, placed near Nurse station, medications evaluated, medicated for pain/anxiety, Clinical justification for use: airway protection, line protection, patient safety, Mental status: agitated/restless, Cognition: Unable to assess. Circulation: Within defined parameters (based on Cardiovascular assessment) Skin integrity: Within defined parameters (based on Integumentary assessment) Signs of injury related to restraint: No injuries noted. Range of Motion (ROM): performed. Restraint status: Soft wrist restraint (Right) Started. Soft wrist restraint (Left) Started. 06:04 Non-Violent Restraint: Initiated on September 10, 2018 at 04:00 Clinical justification ak1 for use: airway protection, line protection, patient safety, Cognition: Unable to assess. Circulation: Within defined parameters (based on Cardiovascular assessment) Skin integrity: Within defined parameters (based on Integumentary assessment) Signs of injury related to restraint: No injuries noted. Range of Motion (ROM): performed. Restraint status: Soft wrist restraint (Right) Continued. Soft wrist restraint (Left) Continued. Administered Medications: 01:25 Drug: Ativan 1 mg Route: IVP; Site: right antecubital; jb4 05:49 Follow up: Response: No adverse reaction jb4 01:45 Drug: NS 0.9% 1000 ml Route: IV; Rate: 1 bolus; Site: right antecubital; ea 02:30 Follow up: Response: No adverse reaction; IV Status: Completed infusion jb4 01:48 CANCELLED (Physician Discretion): Keppra 1000 mg IV at calculated rate once cp 02:15 Drug: Banana Bag - (NS 0.9% 1000 ml, foLIC Acid 1 mg, Thiamine 100 mg, Multivitamin 1 ea amp) Route: IV; Rate: 200 ml/hr; Site: right antecubital; 02:44 Follow up: Response: No adverse reaction; IV Status: Order to discontinue infusion jb4 02:42 Not Given (Physician Discretion): Phenytoin 500 mg IVPB once cp 02:48 Not Given (Physician Discretion): Phenytoin 1 grams IVPB once cp 03:00 Drug: Diazepam 5 mg {Note: given 50 total..} Route: IVP; Site: left antecubital; jb4 03:56 Follow up: Response: No adverse reaction jb4 03:20 Drug: Keppra 1000 mg Route: IV; Rate: calculated rate; Site: right antecubital; jb4 03:50 Follow up: Response: No adverse reaction; IV Status: Completed infusion jb4 03:20 Drug: CEREbyx 1 grams Route: IVPB; Site: right antecubital; jb4 05:51 Follow up: Response: No adverse reaction; IV Status: Completed infusion jb4 03:22 Drug: NS 0.9% 500 ml Route: IV; Rate: bolus; Site: right antecubital; jb4 05:50 Follow up: Response: No adverse reaction; IV Status: Completed infusion jb4 03:24 Drug: Etomidate 20 mg Route: IVP; Site: left antecubital; jb4 05:47 Follow up: Response: No adverse reaction jb4 03:25 Drug: Succinylcholine 100 mg Route: IVP; Site: left antecubital; jb4 05:46 Follow up: Response: No adverse reaction jb4 03:25 Drug: fentaNYL (PF) 100 mcg Route: IVP; Site: right antecubital; jb4 05:46 Follow up: Response: No adverse reaction jb4 03:31 Drug: Propofol 5 mcg/kg/min Route: IV; Rate: calculated rate; Site: left antecubital; jb4 05:50 Follow up: Response: No adverse reaction; IV Status: Infusion continued upon transfer jb4 03:35 Drug: Propofol 40 mg Route: IVP; Site: left antecubital; jb4 05:47 Follow up: Response: No adverse reaction jb4 03:40 Drug: NS 0.9% 1000 ml Route: IV; Rate: 125 ml/hr; Site: left antecubital; jb4 05:50 Follow up: Response: No adverse reaction; IV Status: Infusion continued upon transfer jb4 03:50 Drug: Propofol 50 mg Route: IVP; Site: left antecubital; jb4 05:48 Follow up: Response: No adverse reaction jb4 03:50 Drug: fentaNYL (PF) 100 mcg Route: IVP; Site: right antecubital; jb4 05:45 Follow up: Response: No adverse reaction jb4 04:02 CANCELLED (Other Intervention Used): Propofol 0.5 mg/kg IVP once jb4 04:05 Drug: Propofol 50 mg Route: IVP; Site: left antecubital; jb4 05:44 Follow up: Response: No adverse reaction jb4 04:25 Drug: Propofol 50 mg Route: IVP; Site: left antecubital; jb4 05:43 Follow up: Response: No adverse reaction jb4 04:36 Drug: Ketamine 1 mg/kg Route: IVP; Site: right antecubital; jb4 05:39 Follow up: Response: No adverse reaction jb4 04:56 Drug: Versed 10 mg Route: IVP; Site: right antecubital; jb4 05:38 Follow up: Response: No adverse reaction jb4 05:25 Drug: Ketamine 1 mg/kg Route: IVP; Site: right antecubital; ak1 05:50 Follow up: Response: No adverse reaction; No adverse reaction, continued uppon transfer.jb4 Outcome: 05:26 ER care complete, transfer ordered by . kdr 06:21 Transferred by helicopter to [facility]. jb4 06:21 Condition: stable 06:21 Instructed on the need for transfer, Demonstrated understanding of instructions. 06:22 Patient left the ED. jb4 Signatures: Dispatcher [employer] EDMS Juan Cyr MD MD kdr Chretien, Felicia, RN RN Dulce Chaudhari RN RN ak1 Blue Jaeger PA PA cp Bryson, James, RN RN jb4 Akila Ojeda Moriah Briana Sharpe RN RN Tila Smith 1 Corrections: (The following items were deleted from the chart) 03:03 01:30 BP 127 / 72; Pulse 126bpm; Resp 24bpm; Pulse Ox 92% RA; [facility] 04:49 04:00 Reassessment: Holding NG tube per Dr. Holt [facility] jb 05:03 03:50 BP 104 / 71; Pulse 87bpm; Resp 16bpm; Assisted; Pulse Ox 96% ET / Ventilator; jb ak1 05:35 03:40 Reassessment: Holding NG tube per Dr. Holt [facility] jb4 05:35 01:20 Reassessment: actively seizing. jb4 jb4
--- NOTE | 2018-09-10 05:26 | EDPHYS ---
Physician Documentation [facility] Name: Alfie Zavala Age: 28 yrs Sex: Male : 1990 Arrival Date: 09/10/2018 Time: 01:10 Bed 3 Private MD: ED Physician Juan Cyr HPI: 09/10 01:30 This 28 yrs old Male presents to ER via Ambulatory with complaints of Probable cp Seizure. 01:30 The patient presents with a history of multiple seizures, a total of 4, the episode(s) cp was witnessed, by family, brother. Character of seizure(s): Loss of consciousness: the patient experienced loss of consciousness, Motor activity: generalized, shaking all over, Incontinence: none. Historical: - Allergies: 01:56 Ativan; jb4 - Home Meds: 01:56 sumatriptan oral 50 mg as needed [Active]; jb4 02:40 Tegretol 200 mg Oral tab 1 tab every 12 hours [Active]; lamotrigine 200 mg Oral tab 1 fc tab 2 times per day [Active]; fluoxetine 40 mg Oral cap 1 cap once daily [Active]; Phenytoin 100 mg Oral 2 tabs 3 times per day [Active]; diazepam 10 mg Oral tab 1 tab daily prn for Acute Repetitive Seizures, Anxiety [Active]; - PMHx: 02:40 Depression; Seizures; Headaches; fc - PSHx: 02:40 Appendectomy; fc - Immunization history:: Last tetanus immunization: unknown. - Social history:: Smoking status: Patient/guardian denies using tobacco, Patient/guardian denies using alcohol, street drugs. - Ebola Screening: : Patient negative for fever greater than or equal to 101.5 degrees Fahrenheit, and additional compatible Ebola Virus Disease symptoms Patient denies exposure to infectious person Patient denies travel to an Ebola-affected area in the 21 days before illness onset. ROS: 01:35 Constitutional: Negative for body aches, chills, fever, poor PO intake. cp 01:35 Eyes: Negative for injury, pain, redness, and discharge. cp 01:35 ENT: Negative for drainage from ear(s), ear pain, sore throat, difficulty swallowing, difficulty handling secretions. 01:35 Cardiovascular: Negative for chest pain, edema, palpitations. 01:35 Respiratory: Negative for cough, shortness of breath, wheezing. 01:35 Abdomen/GI: Negative for abdominal pain, nausea, vomiting, and diarrhea, black/tarry stool, rectal bleeding. 01:35 Skin: Negative for cellulitis, rash. 01:35 Neuro: Positive for seizure activity, Negative for altered mental status, headache. 01:35 All other systems are negative. Exam: 02:13 Head/Face: Normocephalic, atraumatic. cp 02:13 Constitutional: The patient appears in no acute distress, alert, awake, non-diaphoretic, non-toxic, well developed, well nourished. 02:13 Eyes: Periorbital structures: appear normal, Pupils: equal, round, and reactive to light and accomodation, Extraocular movements: intact throughout, Conjunctiva: normal, no exudate, no injection, Sclera: no appreciated abnormality, Lids and lashes: appear normal, bilaterally. 02:13 ENT: External ear(s): are unremarkable, Ear canal(s): are normal, clear, TM's: bulging, is not appreciated, bilaterally, dullness, bilaterally, erythema, is not appreciated, bilaterally, Nose: is normal, Mouth: Lips: moist, Oral mucosa: moist, Posterior pharynx: is normal, airway is patent, no erythema, no exudate. 02:13 Neck: C-spine: vertebral tenderness, is not appreciated, crepitus, is not appreciated, ROM/movement: is normal, is supple, without pain, no range of motions limitations, no nuchal rigidity. 02:13 Chest/axilla: Inspection: normal, Palpation: is normal, no crepitus, no tenderness. 02:13 Cardiovascular: Rhythm: regular, Pulses: Pulses are 2+ in right radial artery and left radial artery. Edema: is not appreciated, JVD: is not appreciated. 02:13 Respiratory: the patient does not display signs of respiratory distress, Respirations: normal, no use of accessory muscles, no retractions, no splinting, no tachypnea, labored breathing, is not present, Breath sounds: are clear throughout, no decreased breath sounds, no stridor, no wheezing. 02:13 Abdomen/GI: Inspection: abdomen appears normal, Bowel sounds: active, all quadrants, Palpation: abdomen is soft and non-tender, in all quadrants. 02:13 Back: pain, is absent, ROM is normal. 02:13 Skin: cellulitis, is not appreciated, no rash present. 02:13 Neuro: Orientation: to person, place \T\ time. Mentation: is normal, Cranial nerves: CN II- XII are normal as tested, Cerebellar function: is grossly normal, Motor: moves all fours, strength is normal, Sensation: no obvious gross deficits. Vital Signs: 01:15 BP 119 / 73; Pulse 110; Resp 20; Temp 98.2(O); Pulse Ox 97% on R/A; Weight 108.41 kg fc (R); Height 5 ft. 11 in. (180.34 cm) (R); Pain 8/10; 01:30 BP 117 / 71; Pulse 102; Resp 24; Pulse Ox 99% on R/A; mt 01:52 BP 127 / 72; Pulse 126; Resp 24; Pulse Ox 92% on R/A; mt 02:30 BP 106 / 66; Pulse 103; Resp 20; Pulse Ox 96% on R/A; mt 02:45 BP 88 / 44; Pulse 102; Resp 20; Pulse Ox 99% on 2 lpm NC; mt 03:27 BP 138 / 101; Pulse 114; Resp 16; Pulse Ox 100% on NC; jb4 03:31 BP 147 / 112; Pulse 116; Resp 24; Pulse Ox 93% on R/A; jb4 03:33 BP 104 / 71; Pulse 87; Resp 16 A; Pulse Ox 96% on 100% BVM; ak1 03:40 BP 88 / 53; Pulse 88; Resp 16; Pulse Ox 96% on 100% FiO2 ETT vent; ak1 03:45 BP 121 / 83; Pulse 100; Resp 22; Pulse Ox 96% on 100% FiO2 ETT vent; ak1 03:50 BP 124 / 67; Pulse 125; Resp 21; Pulse Ox 97% on 100% FiO2 ETT vent; ak1 03:55 BP 97 / 57; Pulse 91; Resp 15; Pulse Ox 98% on 100% FiO2 ETT vent; ak1 04:00 BP 100 / 74; Pulse 91; Resp 15; Pulse Ox 97% on 100% FiO2 ETT vent; ak1 04:25 BP 114 / 62; Pulse 97; Resp 21; Pulse Ox 99% on 100% FiO2 ETT vent; ak1 04:30 BP 105 / 67; Pulse 89; Resp 17; Pulse Ox 100% on 100% FiO2 ETT vent; ak1 04:35 BP 127 / 87; Pulse 94; Resp 19; Pulse Ox 100% on 100% FiO2 ETT vent; ak1 04:40 BP 117 / 73; Pulse 84; Resp 19; Pulse Ox 100% on 100% FiO2 ETT vent; ak1 04:45 BP 134 / 94; Pulse 94; Resp 18; Pulse Ox 100% on 100% FiO2 ETT vent; jb4 04:50 BP 124 / 80; Pulse 89; Resp 17; Pulse Ox 100% on 100% FiO2 ETT vent; jb4 04:55 BP 121 / 82; Pulse 87; Resp 17; Pulse Ox 100% on 100% FiO2 ETT vent; jb4 05:00 BP 108 / 68; Pulse 88; Resp 17; Pulse Ox 100% on 100% FiO2 ETT vent; jb4 05:05 BP 105 / 66; Pulse 86; Resp 18; Pulse Ox 100% on 100% FiO2 ETT vent; jb4 05:10 BP 107 / 75; Pulse 81; Resp 16; Pulse Ox 100% on 100% FiO2 ETT vent; jb4 05:15 BP 121 / 80; Pulse 84; Resp 16; Pulse Ox 100% on 100% FiO2 ETT vent; jb4 05:20 BP 117 / 73; Pulse 82; Resp 17; Pulse Ox 100% on 100% FiO2 ETT vent; jb4 05:25 BP 101 / 70; Pulse 82; Resp 18; Pulse Ox 100% on 100% FiO2 ETT vent; jb4 05:30 BP 97 / 69; Pulse 82; Resp 17; Pulse Ox 100% on 100% FiO2 ETT vent; jb4 05:35 BP 101 / 67; Pulse 77; Resp 18; Pulse Ox 100% on 100% FiO2 ETT vent; jb4 05:40 BP 105 / 74; Pulse 75; Resp 18; Pulse Ox 100% on 100% FiO2 ETT vent; jb4 05:45 BP 107 / 76; Pulse 75; Resp 18; Pulse Ox 100% on 100% FiO2 ETT vent; jb4 05:50 BP 103 / 74; Pulse 77; Resp 18; Pulse Ox 100% on 100% FiO2 ETT vent; jb4 01:15 Body Mass Index 33.33 (108.41 kg, 180.34 cm) fc Nino Coma Score: 01:15 Eye Response: spontaneous(4). Verbal Response: oriented(5). Motor Response: obeys jb4 commands(6). Total: 15. Procedures: 03:52 Intubation: Ventilated with 100% NRB prior to procedure. O2 saturation prior to cp procedure was 98 %. Intubated orally using # 3 Schuster blade with 7.5 mm ETT. Successful on second attempt. Ventilated with Ambu bag. ventilator. Tube secured with ETT vasquez at left side of mouth measured 23 cm at teeth. Placement verified by CO2 detector with (+) color change, auscultating bilateral breath sounds, O2 saturation after procedure was 99 %. Patient tolerated well. MDM: 01:18 Patient medically screened. cp 02:59 Physician consultation: DR Wolfe, neurologist, will accept patient to Neuro ICU \T\[facility]. 03:55 Data reviewed: vital signs, nurses notes, lab test result(s), EKG, radiologic studies, cp plain films. Test interpretation: by ED physician or midlevel provider: plain radiologic studies. 05:26 ED course: Discussed sedation options with Dr. Wolfe. Given limited supply of Versed, kdr will start on ketamine Drip \T\4 mg/kg/hr for the first ten minutes and then titrate down. 09/10 01:25 Order name: Acetaminophen; Complete Time: 02:37 cp 09/10 01:25 Order name: Basic Metabolic Panel; Complete Time: 02:37 cp 09/10 02:39 Interpretation: Normal except: CL 111; CO2 18; GFR 79; CA 8.3. cp 09/10 01:25 Order name: CBC with Diff; Complete Time: 02:25 cp 09/10 02:38 Interpretation: Normal except: WBC 13.1. cp 09/10 01:25 Order name: ETOH Level; Complete Time: 02:37 cp 09/10 02:38 Interpretation: Abnormal: ETOH 5. cp 09/10 01:25 Order name: Hepatic Function; Complete Time: 02:37 cp 09/10 02:38 Interpretation: Normal except: ALK 146; GLOB 3.8. cp 09/10 01:25 Order name: PT-INR; Complete Time: 02:25 cp 09/10 01:25 Order name: Ptt, Activated; Complete Time: 02:25 cp 09/10 01:25 Order name: Salicylate; Complete Time: 02:37 cp 09/10 01:25 Order name: Urine Drug Screen; Complete Time: 02:25 cp 09/10 02:25 Interpretation: Normal except: BZO POSITIVE; THC POSITIVE. cp 09/10 01:33 Order name: Phenytoin (dilantin); Complete Time: 02:37 cp 09/10 02:41 Interpretation: PTN 7.7. cp 09/10 01:33 Order name: Tegretol Level; Complete Time: 02:37 cp 09/10 01:52 Order name: CT Head Brain wo Cont cp 09/10 02:00 Order name: Urine Dipstick--Ancillary (enter results); Complete Time: 02:37 ms 09/10 03:38 Order name: XRAY Chest (1 view) ms 09/10 01:25 Order name: EKG; Complete Time: 01:26 cp 09/10 01:25 Order name: EKG - Nurse/Tech; Complete Time: 01:26 cp 09/10 01:25 Order name: IV Saline Lock; Complete Time: 01:26 cp 09/10 01:25 Order name: Labs collected and sent; Complete Time: 01: cp 09/10 01:25 Order name: Urine Dipstick-Ancillary (obtain specimen); Complete Time: 02:42 cp 09/10 01:25 Order name: Seizure Precautions; Complete Time: 01: cp 09/10 04:34 Order name: Restraint:Non-Violent; Complete Time: 04:34 [facility] 09/10 04:50 Order name: Muñoz; Complete Time: 05:09 cp Administered Medications: 01:25 Drug: Ativan 1 mg Route: IVP; Site: right antecubital; jb4 05:49 Follow up: Response: No adverse reaction jb4 01:45 Drug: NS 0.9% 1000 ml Route: IV; Rate: 1 bolus; Site: right antecubital; ea 02:30 Follow up: Response: No adverse reaction; IV Status: Completed infusion jb4 01:48 CANCELLED (Physician Discretion): Keppra 1000 mg IV at calculated rate once cp 02:15 Drug: Banana Bag - (NS 0.9% 1000 ml, foLIC Acid 1 mg, Thiamine 100 mg, Multivitamin 1 ea amp) Route: IV; Rate: 200 ml/hr; Site: right antecubital; 02:44 Follow up: Response: No adverse reaction; IV Status: Order to discontinue infusion jb4 02:42 Not Given (Physician Discretion): Phenytoin 500 mg IVPB once cp 02:48 Not Given (Physician Discretion): Phenytoin 1 grams IVPB once cp 03:00 Drug: Diazepam 5 mg {Note: given 50 total..} Route: IVP; Site: left antecubital; jb4 03:56 Follow up: Response: No adverse reaction jb4 03:20 Drug: Keppra 1000 mg Route: IV; Rate: calculated rate; Site: right antecubital; jb4 03:50 Follow up: Response: No adverse reaction; IV Status: Completed infusion jb4 03:20 Drug: CEREbyx 1 grams Route: IVPB; Site: right antecubital; jb4 05:51 Follow up: Response: No adverse reaction; IV Status: Completed infusion jb4 03:22 Drug: NS 0.9% 500 ml Route: IV; Rate: bolus; Site: right antecubital; jb4 05:50 Follow up: Response: No adverse reaction; IV Status: Completed infusion jb4 03:24 Drug: Etomidate 20 mg Route: IVP; Site: left antecubital; jb4 05:47 Follow up: Response: No adverse reaction jb4 03:25 Drug: Succinylcholine 100 mg Route: IVP; Site: left antecubital; jb4 05:46 Follow up: Response: No adverse reaction jb4 03:25 Drug: fentaNYL (PF) 100 mcg Route: IVP; Site: right antecubital; jb4 05:46 Follow up: Response: No adverse reaction jb4 03:31 Drug: Propofol 5 mcg/kg/min Route: IV; Rate: calculated rate; Site: left antecubital; jb4 05:50 Follow up: Response: No adverse reaction; IV Status: Infusion continued upon transfer jb4 03:35 Drug: Propofol 40 mg Route: IVP; Site: left antecubital; jb4 05:47 Follow up: Response: No adverse reaction jb4 03:40 Drug: NS 0.9% 1000 ml Route: IV; Rate: 125 ml/hr; Site: left antecubital; jb4 05:50 Follow up: Response: No adverse reaction; IV Status: Infusion continued upon transfer jb4 03:50 Drug: Propofol 50 mg Route: IVP; Site: left antecubital; jb4 05:48 Follow up: Response: No adverse reaction jb4 03:50 Drug: fentaNYL (PF) 100 mcg Route: IVP; Site: right antecubital; jb4 05:45 Follow up: Response: No adverse reaction jb4 04:02 CANCELLED (Other Intervention Used): Propofol 0.5 mg/kg IVP once jb4 04:05 Drug: Propofol 50 mg Route: IVP; Site: left antecubital; jb4 05:44 Follow up: Response: No adverse reaction jb4 04:25 Drug: Propofol 50 mg Route: IVP; Site: left antecubital; jb4 05:43 Follow up: Response: No adverse reaction jb4 04:36 Drug: Ketamine 1 mg/kg Route: IVP; Site: right antecubital; jb4 05:39 Follow up: Response: No adverse reaction jb4 04:56 Drug: Versed 10 mg Route: IVP; Site: right antecubital; jb4 05:38 Follow up: Response: No adverse reaction jb4 05:25 Drug: Ketamine 1 mg/kg Route: IVP; Site: right antecubital; ak1 05:50 Follow up: Response: No adverse reaction; No adverse reaction, continued uppon transfer.jb4 Disposition: 09/10/18 05:26 Transfer ordered to [facility]. Diagnosis is Absence epileptic syndrome, intractable, with status epilepticus. - Reason for transfer: Higher level of care. - Accepting physician is Dr. Wolfe. - Condition is Fair. - Problem is an acute exacerbation. - Symptoms have improved. Critical care time excluding procedures: 04:20 Critical care time: Bedside Care: 25 minutes, Consultation: 10 minutes, Family cp Intervention: 10 minutes. Total time: 45 minutes Signatures: Dispatcher [employer] EDMS Juan Cyr MD MD kdr Chretien, Felicia, RN RN fc Krenek, Amber, RN RN ak1 Blue Jaeger PA PA cp Bryson, James, RN RN jb4 Briana Cevallos RN RN ea Corrections: (The following items were deleted from the chart) 01:48 01:48 Keppra 1000 mg IV at calculated rate once ordered. cp cp 02:39 02:37 Normal except: CL 111; CO2 18; GFR 79. cp cp 04:02 04:02 Propofol 0.5 mg/kg IVP once ordered. jb4 jb4 06:22 05:26 09/10/2018 05:26 Transfer ordered to [facility]. Diagnosis is jb4 Absence epileptic syndrome, intractable, with status epilepticus. Reason for transfer: Higher level of care. Accepting physician is Dr. Wolfe. Condition is Fair. Problem is an acute exacerbation. Symptoms have improved. kdr
[2018-09-10 06:28] VITALS: TEMP 98.2
[2018-09-10 06:44] VITALS: O2SAT 100
[2018-09-10 07:04] VITALS: BP 103/74
--- NOTE | 2018-09-10 10:38 | RAD REPORT ---
EXAM DESCRIPTION: CT - Head Brain Wo Cont - 09/10/2018 6:43 am CLINICAL HISTORY: Seizure A preliminary report was provided at the time of the study and reviewed prior to final report. COMPARISON: October 2016 TECHNIQUE: Axial 5 mm thick images of the head were obtained without IV contrast. All CT scans are performed using dose optimization technique as appropriate and may include automated exposure control or mA/KV adjustment according to patient size. FINDINGS: No intracranial hemorrhage, mass, edema or shift of mid-line structures. No acute infarcti on changes seen. No abnormal extra-axial fluid collections. Ventricles are normal. Mastoid air cells are clear. Partially visualized paranasal sinuses are without significant finding. Adenoid tissue is prominent. Posterior nasal passages are partially opacified. This area is not well visualized on this CT head study. No acute bony findings. IMPRESSION: No intracranial abnormality seen. No finding as a seizure focus. Prominent adenoid tissue and partial opacification of the posterior nasal passages incompletely visua lized on this study.
--- NOTE | 2018-09-10 11:54 | RAD REPORT ---
EXAM DESCRIPTION: RAD - Chest Single View - 09/10/2018 3:54 am CLINICAL HISTORY: Seizure, respiratory distress, intubation COMPARISON: October 2015 TECHNIQUE: AP portable chest image was obtained 0340 hours . FINDINGS: Lung volumes are very low. Endotracheal tube is T4 level top of the aortic arch. Patchy al veolar opacities are present in the central lung kaur in the medial left lung base. Heart size is n ormal for portable shallow inspiration. No pneumothorax or large pleural effusion. No acute bony abno rmality seen. No acute aortic findings suspected. IMPRESSION: Endotracheal tube in good position. Patchy left base opacification and perihilar prominent vasculature and lung markings. Developing pulmonary edema suspected. Patient could have concurrent aspiration or infectious pneumoni a in the left lung base as well.
--- NOTE | 2018-09-11 19:18 | EKG ---
Test Date: 2018-09-10 Test Time: 01:28:59 Health Insurance Agent: JERICA MEASUREMENT RESULTS: Intervals: Rate: 109 MN: 144 QRSD: 82 QT: 320 QTc: 430 [place]: P: 64 MN: 144 QRS: 46 T: 48 INTERPRETIVE STATEMENTS: Sinus tachycardia Otherwise normal ECG Compared to ECG 08/09/2018 17:51:14 No significant changes Electronically Signed On 09-11-18 19:15:07 CDT by Jamey Pace
== END 2018-09-10 06:22 | disposition short-term general hospital (02) ==
LOC: ER 01:08
PROC: 0BH17EZ Insertion of Endotracheal Airway into Trachea, Via Natural or Artificial Opening (ICD-10-PCS; principal; 2018-09-10)
PROC: 5A1935Z Respiratory Ventilation, Less than 24 Consecutive Hours (ICD-10-PCS; 2018-09-10)
DX: G40.A11 Absence epileptic syndrome, intractable, with status epilepticus (principal); F32.9 Major depressive disorder, single episode, unspecified; Z88.8 Allergy status to other drugs, medicaments and biological substances
CPT/HCPCS: 31500; 36415; 70450; 71045; 80048; 80076; 80156; 80185; 80307; 80320; 80329; 81003; 85025; 85610; 85730; 93005; 99291; 99292; J0330; J1953; J2250; J3010; J3360; J3411; J7030; Q2009

== ENCOUNTER 2018-10-02 20:59 | Emergency (ER) | payer BC ==
--- OUTSIDE RECORDS SUMMARY | 2018-10-02 21:01 | XMS REPORT | Clinical Summary ---
:1990 Author Organization [facility] Address [address] [place] [address] Care Team Providers Name Role Phone Andrew [...] for Anxiety. Max Daily Amount: 30 mg FLUoxetine (PROZAC) Take 40 mg by 0 Active 40 MG capsule mouth daily. phenytoin Take 200 mg by 0 Active (DILANTIN) 100 MG mouth 3 ER capsule (three) times daily. carBAMazepine Take 1 tablet 60 tablet 2 09/13/2018 Active (TEGRETOL) 200 mg (200 mg total) 8 tablet by mouth 2 (two) times daily for 30 days. gabapentin Take 1 capsule 30 capsule 0 09/13/2018 Active (NEURONTIN) 300 MG (300 mg total) [...] 2 (two) 8 tablet times daily . gabapentin Take 1 capsule 30 capsule 0 08/12/2018 Discontinued (NEURONTIN) 300 MG (300 mg total) 8 capsule by mouth 3 (three) times daily as needed (anxiety). carBAMazepine Take 200 mg by 0 Discontinued (TEGRETOL) 200 mg mouth 2 (two) 8 tablet times daily. Active Problems Problem Noted Date Status epilepticus 09/10/2018 Acute respiratory failure with hypoxia 09/10/2018 Essential hypertension 09/10/2018 Acute encephalopathy 09/10/2018 Obesity 08/13/2018 Severe episode of recurrent major depressive disorder 08/11/2018 Suicide attempt 08/11/2018 Seizure 08/10/2018 Encounters Date Type Specialty Care Team Description 09/11/2018 Travel 09/10/2018 - Hospital General Internal [facility] [place], Status epilepticus (HCC); 09/13/2018 Encounter Medicine Chandler Essential hypertension; MD Raymond Acute respiratory failure with hypoxia (HCC); Sammi Lujan MD Acute encephalopathy; Seizure (HCC); Suicide attempt (HCC); Moderate episode of recurrent major depressive disorder (HCC) 09/07/2018 Abstract Psychiatry Erika Barrientos MD 08/10/2018 - Hospital Cardiology Lexx Bustos Seizure (HCC); 08/13/2018 Encounter MD Bryan Suicide ideation; Vee Quigley MD Psychogenic nonepileptic seizure; Gutierrez Olivares Psychiatric illness; MD Shahla Anxiety 08/10/2018 Abstract Psychiatry Erika Barrientos MD 08/10/2018 Orders Only General Internal Medicine after 10/01/2017 Immunizations Name Dates Previously Given Next Due Influenza Four-QIV Non-PF 5+ YR 09/12/2018 Social History Tobacco Use Types Packs/Day Years Used Date Never Smoker Alcohol Use Drinks/Week oz/Week Comments No Sex Assigned at Date Recorded Not on file Job Start Date Occupation Industry Not on file Not on file Not on file Travel History Travel Start Travel End No recent travel history available. Last Filed Vital Signs Vital Sign Reading Time Taken Blood Pressure 124/75 09/13/2018 4:26 PM CDT Pulse 130 09/13/2018 4:26 PM CDT Temperature 36 C (96.8 F) 09/13/2018 4:26 PM CDT Respiratory Rate 18 09/13/2018 4:26 PM CDT Oxygen Saturation 95% 09/13/2018 4:26 PM CDT Inhaled Oxygen Concentration 40% 09/11/2018 10:03 AM CDT Weight 107 kg (235 lb 14.4 oz) 09/13/2018 5:00 AM CDT Height 180.3 cm (5' 11") 09/13/2018 5:00 AM CDT Body Mass Index 32.9 09/13/2018 5:00 AM CDT Plan of Treatment Not on file Procedures Procedure Name Priority Date/Time Associated Comments Diagnosis RHYTHM STRIP - SCAN 09/14/2018 1:00 PM CDT XR CHEST 1 VIEW Routine 09/13/2018 3:47 Results for this PORTABLE/BEDSIDE AM CDT procedure are in the results section. CBC W/PLT COUNT & AUTO Routine 09/13/2018 3:37 Results for this DIFFERENTIAL AM CDT procedure are in the results section. PHOSPHORUS Routine 09/13/2018 3:37 Results for this AM CDT procedure are in the results section. MAGNESIUM Routine 09/13/2018 3:37 Results for this AM CDT procedure are in the results section. BASIC METABOLIC PANEL Routine 09/13/2018 3:37 Results for this (7) AM CDT procedure are in the results section. CBC W/PLT COUNT & AUTO Routine 09/13/2018 3:37 Results for this DIFFERENTIAL AM CDT procedure are in the results section. MAGNESIUM Routine 09/12/2018 6:02 Results for this PM CDT procedure are in the results section. POTASSIUM Routine 09/12/2018 6:02 Results for this PM CDT procedure are in the results section. CALCIUM, IONIZED Routine 09/12/2018 11:37 Results for this AM CDT procedure are in the results section. PHOSPHORUS Routine 09/12/2018 11:37 Results for this AM CDT procedure are in the results section. MAGNESIUM Routine 09/12/2018 11:37 Results for this AM CDT procedure are in the results section. POTASSIUM Routine 09/12/2018 11:37 Results for this AM CDT procedure are in the results section. EEG MONITORING WITH Routine 09/12/2018 8:15 Results for this VIDEO RECORDING EACH AM CDT procedure are in 24 HOURS the results section. CBC W/PLT COUNT & AUTO Routine 09/12/2018 3:24 Results for this DIFFERENTIAL AM CDT procedure are in the results section. MAGNESIUM Routine 09/12/2018 3:24 Results for this AM CDT procedure are in the results section. PHOSPHORUS Routine 09/12/2018 3:24 Results for this AM CDT procedure are in the results section. BASIC METABOLIC PANEL Routine 09/12/2018 3:24 Results for this (7) AM CDT procedure are in the results section. CBC W/PLT COUNT & AUTO Routine 09/12/2018 3:24 Results for this DIFFERENTIAL AM CDT procedure are in the results section. POCT-GLUCOSE METER Routine 09/11/2018 11:45 Results for this PM CDT procedure are in the results section. POTASSIUM Routine 09/11/2018 5:09 Results for this PM CDT procedure are in the results section. EEG MONITORING WITH Routine 09/11/2018 6:59 Results for this VIDEO RECORDING EACH AM CDT procedure are in 24 HOURS the results section. POCT-GLUCOSE METER Routine 09/11/2018 6:23 Results for this AM CDT procedure are in the results section. XR CHEST 1 VIEW Routine 09/11/2018 5:20 Results for this PORTABLE/BEDSIDE AM CDT procedure are in the results section. CBC W/PLT COUNT & AUTO Routine 09/11/2018 3:20 Results for this DIFFERENTIAL AM CDT procedure are in the results section. BASIC METABOLIC PANEL Routine 09/11/2018 3:20 Results for this (7) AM CDT procedure are in the results section. BLOOD GAS, ARTERIAL Routine 09/11/2018 3:20 Results for this AM CDT procedure are in the results section. CBC W/PLT COUNT & AUTO Routine 09/11/2018 3:20 Results for this DIFFERENTIAL AM CDT procedure are in the results section. POCT-GLUCOSE METER Routine 09/11/2018 12:24 Results for this AM CDT procedure are in the results section. TROPONIN I STAT 09/10/2018 4:39 Results for this PM CDT procedure are in the results section. EEG AWAKE AND DROWSY STAT 09/10/2018 3:06 Results for this PM CDT procedure are in the results section. BLOOD GAS, ARTERIAL Routine 09/10/2018 12:18 Results for this PM CDT procedure are in the results section. XR ABDOMEN 1 VIEW STAT 09/10/2018 11:58 Results for this AM CDT procedure are in the results section. MAY USE LINE FOR Routine 09/10/2018 10:39 Results for this INFUSIONS AM CDT procedure are in the results section. DRUG SCREEN, URINE, Routine 09/10/2018 10:20 COMPREHENSIVE AM CDT BLOOD CULTURE Routine 09/10/2018 9:22 Results for this AM CDT procedure are in the results section. SPUTUM CULTURE + GRAM Routine 09/10/2018 9:21 Results for this STAIN AM CDT procedure are in the results section. XR CHEST 1 VIEW Routine 09/10/2018 9:11 Results for this PORTABLE/BEDSIDE AM CDT procedure are in the results section. BLOOD CULTURE Routine 09/10/2018 8:49 Results for this AM CDT procedure are in the results section. URINE CULTURE Routine 09/10/2018 8:44 Results for this AM CDT procedure are in the results section. CARBAMAZEPINE LEVEL Routine 09/10/2018 8:38 Results for this AM CDT procedure are in the results section. APTT Routine 09/10/2018 8:38 Results for this AM CDT procedure are in the results section. PROTHROMBIN TIME/INR Routine 09/10/2018 8:38 Results for this AM CDT procedure are in the results section. PLATELET COUNT Routine 09/10/2018 8:38 Results for this AM CDT procedure are in the results section. TROPONIN I STAT 09/10/2018 8:38 Results for this AM CDT procedure are in the results section. PHENYTOIN LEVEL, TOTAL Routine 09/10/2018 8:38 Results for this AM CDT procedure are in the results section. RHYTHM STRIP - SCAN 08/16/2018 8:40 AM CDT BASIC METABOLIC PANEL Routine 08/13/2018 6:02 Results for this (7) AM CDT procedure are in the results section. CREATINE KINASE (CK) Routine 08/13/2018 6:02 Results for this AM CDT procedure are in the results section. CREATINE KINASE (CK) Routine 08/12/2018 3:49 Results for this AM CDT procedure are in the results section. BASIC METABOLIC PANEL Routine 08/12/2018 3:49 Results for this (7) AM CDT procedure are in the results section. POCT-GLUCOSE METER Routine 08/11/2018 4:36 Results for this PM CDT procedure are in the results section. CREATINE KINASE (CK) Routine 08/11/2018 4:02 Results for this AM CDT procedure are in the results section. MAGNESIUM Routine 08/11/2018 4:02 Results for this AM CDT procedure are in the results section. BASIC METABOLIC PANEL Routine 08/11/2018 4:02 Results for this (7) AM CDT procedure are in the results section. EEG AWAKE AND DROWSY Routine 08/10/2018 3:38 Results for this PM CDT procedure are in the results section. ECG 12-LEAD Routine 08/10/2018 4:35 AM CDT Procedure Note - Interface, External Ris In - 08/10/2018 4:39 AM CDT Ventricular Rate 69 BPM Atrial Rate 69 BPM P-R Interval 132 ms QRS Duration 88 ms Q-T Interval 390 ms QTC Calculation(Bazett) 417 ms P [place] 14 degrees R [place] 45 degrees T [place] 16 degrees Normal sinus rhythm Normal ECG [...] ARTERIAL Routine 08/10/2018 1:35 AM CDT after 10/01/2017 Results RHYTHM STRIP - SCAN (09/14/2018 1:00 PM CDT)Only the most recent of2 resultswithin the time period is included. Narrative Performed At XR chest 1 view portable / bedside (09/13/2018 3:47 AM CDT)Only the most recent of3 resultswithin the time period is included. Narrative Performed At FINAL REPORT [facility] HISTORY : post intubation. Comparison: 09/11/2018 Comment: Single portable view of the chest was obtained. The cardiac silhouette size is within normal limits. No pneumothorax or pleural effusion is seen. There is some nonspecific patchy left basilar airspace disease. The right-sided internal jugular venous catheter as well as endotracheal tube are no longer visualized on the visualized portions of the x-ray. No lytic or blastic abnormalities are appreciated. Signed: Sandra Shultz MD Report Verified Date/Time:09/13/2018 07:27:51 Reading Location: [facility] Radiology Reading Room Procedure Note Interface, External Ris In - 09/13/2018 7:30 AM CDT FINAL REPORT HISTORY : post intubation. Comparison: 09/11/2018 Comment: Single portable view of the chest was obtained. The cardiac silhouette size is within normal limits. No pneumothorax or pleural effusion is seen. There is some nonspecific patchy left basilar airspace disease. The right-sided internal jugular venous catheter as well as endotracheal tube are no longer visualized on the visualized portions of the x-ray. No lytic or blastic abnormalities are appreciated. Signed: Sandra Shultz MD Report Verified Date/Time: 09/13/2018 07:27:51 Reading Location: [facility] Radiology Reading Room Performing Organization Address City/State/Zipcode Phone Number [facility] CBC with platelet count + automated diff (09/13/2018 3:37 AM CDT)Only the most recent of4 resultswithin the time period is included. WBC 6.1 3.5 - 10.5 K/L [facility] RBC 3.85 (L) 4.63 - 6.08 M/L [facility] Hemoglobin 11.4 (L) 13.7 - 17.5 GM/DL [facility] Hematocrit 35.1 (L) 40.1 - 51.0 % [facility] MCV 91.2 79.0 - 92.2 fL [facility] MCH 29.6 25.7 - 32.2 pg [facility] MCHC 32.5 32.3 - 36.5 GM/DL [facility] RDW 13.7 11.6 - 14.4 % [facility] Platelets 162 150 - 450 K/CU MM [facility] MPV 10.4 9.4 - 12.4 fL [facility] nRBC 0 0 - 0 /100 WBC [facility] % Neutros 58 % [facility] % Lymphs 32 % [facility] % Monos 9 % [facility] % Eos 1 % [facility] % Baso 0 % [facility] # Neutros 3.54 1.78 - 5.38 K/L [facility] # Lymphs 1.93 1.32 - 3.57 K/L [facility] # Monos 0.52 0.30 - 0.82 K/L [facility] # Eos 0.07 0.04 - 0.54 K/L [facility] # Baso 0.02 0.01 - 0.08 K/L [facility] Immature Granulocytes-Relative 0 0 - 1 % [facility] Specimen Blood Performing Organization Address City/State/Zipcode Phone Number [facility] [place] [place] [address] [place] [address] [phone] CENTER Phosphorus (09/13/2018 3:37 AM CDT)Only the most recent of4 resultswithin the time period is included. Phosphorus 2.9 2.3 - 4.7 mg/dL [facility] Specimen Blood Narrative Performed At Check Serum Phosphorus level 4 hours after IV [facility] phosphorus replacement or 8 hours after PO replacement completed. Performing Organization Address City/State/Zipcode Phone Number [address] [address] CENTER Magnesium (09/13/2018 3:37 AM CDT)Only the most recent of6 resultswithin the time period is included. Magnesium 2.2 1.6 - 2.6 mg/dL [facility] Specimen Blood Narrative Performed At Check Serum Phosphorus level 4 hours after IV [facility] phosphorus replacement or 8 hours after PO replacement completed. Performing Organization Address [facility] Phone Number [address] [address] CENTER Basic Metabolic Panel (09/13/2018 3:37 AM CDT)Only the most recent of7 resultswithin the time period is included. Sodium 142 136 - 145 meq/L [facility] Potassium 3.6 3.5 - 5.1 meq/L [facility] Chloride 114 (H) 98 - 107 meq/L [facility] CO2 22 22 - 29 meq/L [facility] BUN 8 7 - 21 mg/dL [facility] Creatinine 0.68 0.57 - 1.25 mg/dL [facility] Glucose 109 (H) 70 - 105 mg/dL [facility] Calcium 8.4 8.4 - 10.2 mg/dL [facility] EGFR 137Comment: ESTIMATED GFR IS mL/min/1.73 sq m [facility] NOT ACCURATE [facility] CLEARANCE IN PREDICTING GLOMERULAR FILTRATION RATE. ESTIMATED GFR IS NOT APPLICABLE FOR DIALYSIS PATIENTS. Specimen Blood Narrative Performed At Check Serum Phosphorus level 4 hours after IV [facility] phosphorus replacement or 8 hours after PO replacement completed. Performing Organization Address City/State/[facility] Phone Number [address] [address] [phone] [place] Potassium (09/12/2018 6:02 PM CDT)Only the most recent of3 resultswithin the time period is included. Potassium 3.9 3.5 - 5.1 meq/L [facility] Specimen Blood - Arm, Left Narrative Performed At Check Serum Potassium level 2 hours after [facility] oral potassium replacement completed or 30 min after intravenous potassium replacement. Performing Organization Address [facility] Phone Number [address] [address] [phone] [place] Calcium, Ionized (09/12/2018 11:37 AM CDT) Calcium, Ion 1.09 (L) 1.12 - 1.27 mmol/L [facility] pH, Blood 7.46 [facility] Specimen Blood Narrative Performed At Check serum Ionized Calcium level after 4 [facility] hours after IV Calcium replacement. Performing Organization Address City/[facility] Phone Number [address] [phone] [place] EEG monitoring with video recording each 24 hours (09/12/2018 8:15 AM CDT) Narrative Performed At DATE OF REPORT: 09/12/2018 [facility] ACC: [id number] EE Start time: 09/11 at 0920 AM Stop time: 09/12 at 11:11 AM ICD-10: R56.9 CPT Code: 28580 HISTORY: 28 year old male p/w increased seizure frequency in the setting of psychiatric issues and suicidal ideation. MEDICATIONS THAT COULD AFFECT EEG: Dexmedetomidine, propofol, carbamazepine, lamotrigine, phenytoin TECHNICAL SUMMARY: This is a digital video EEG recorded with 32 input channels reviewed with bipolar and referential montages using the modified combinatorial system nomenclature. Descriptors used for the background, any periodic patterns, and any sporadic discharges per ACNS 2012 Standardized ICU EEG Nomenclature. DESCRIPTION OF RECORD: BACKGROUND: There was a symmetric, reactive to eye opening, and well regulated posterior dominant rhythm of 9-10 Hz. The anterior to posterior gradient was preserved. There was superimposed low voltage high frequency beta activity seen diffusely. Drowsiness was characterized by alpha attenuation. EKG artifact is seen throughout the recording. SLEEP: N1, N2 and REM sleep were recorded with no localizing abnormalities. HYPERVENTILATION: Hyperventilation was not performed. PHOTIC STIMULATION: Photic stimulation was not performed. EVENTS: None ELECTROCARDIOGRAM: A single lead EKG showed normal rate, rhythm, and appearance. IMPRESSION: This is a normal continuous video EEG that captures wakefulness and sleep. There are no epileptiform discharges or electrographic seizures. Rosalio Trujillo MD Neurophysiology Fellow Davis Cintron MD, PhD Attending Neurophysiologist [facility] Procedure Note Interface, External Ris In - 09/12/2018 2:34 PM CDT DATE OF REPORT: 09/12/2018 ACC: [id number] EE Start time: 09/11 at 0920 AM Stop time: 09/12 at 11:11 AM ICD-10: R56.9 CPT Code: 52957 HISTORY: 28 year old male p/w increased seizure frequency in the setting of psychiatric issues and suicidal ideation. MEDICATIONS THAT COULD AFFECT EEG: Dexmedetomidine, propofol, carbamazepine, lamotrigine, phenytoin TECHNICAL SUMMARY: This is a digital video EEG recorded with 32 input channels reviewed with bipolar and referential montages using the modified combinatorial system nomenclature. Descriptors used for the background, any periodic patterns, and any sporadic discharges per ACNS 2012 Standardized ICU EEG Nomenclature. DESCRIPTION OF RECORD: BACKGROUND: There was a symmetric, reactive to eye opening, and well regulated posterior dominant rhythm of 9-10 Hz. The anterior to posterior gradient was preserved. There was superimposed low voltage high frequency beta activity seen diffusely. Drowsiness was characterized by alpha attenuation. EKG artifact is seen throughout the recording. SLEEP: N1, N2 and REM sleep were recorded with no localizing abnormalities. HYPERVENTILATION: Hyperventilation was not performed. PHOTIC STIMULATION: Photic stimulation was not performed. EVENTS: None ELECTROCARDIOGRAM: A single lead EKG showed normal rate, rhythm, and appearance. IMPRESSION: This is a normal continuous video EEG that captures wakefulness and sleep. There are no epileptiform discharges or electrographic seizures. Rosalio Trujillo MD Neurophysiology Fellow Davis Cintron MD, PhD Attending Neurophysiologist [facility] Performing Organization Address City/State/Zipcode Phone Number [facility] POC-Glucose meter (09/11/2018 11:45 PM CDT)Only the most recent of4 resultswithin the time period is included. POC-Glucose Meter 94Comment: TESTED AT 70 - 110 mg/dL [address] [address] Specimen Blood Performing Organization Address [facility] Phone Number [address] [phone] CENTER EEG monitoring with video recording each 24 hours (09/11/2018 6:59 AM CDT) Narrative Performed At DATE OF REPORT: 09/11/2018 [facility] ACC: [id number] EE Start time: 09/10 at 15:05 Stop time: 09/11 at 09:20 AM ICD-10: R56.9 CPT Code: 99006 HISTORY: 28 yo male with h/o seizures presents with increased seizures. MEDICATIONS THAT COULD AFFECT EEG: predecex, propofol, tegretol, lamotrigine, phenytoin TECHNICAL SUMMARY: This is a digital EEG recorded with 32 input channels reviewed with bipolar and referential montages using the modified combinatorial system nomenclature. DESCRIPTION OF RECORD: During the occasional maximally alert state, there is no reactive posterior dominant rhythm, though some 6-7 Hz posterior rhythm is seen. The background mostly consists of generalized 4-7 Hz and intermixed 1.3-3 Hz. There is superimposed generalized 18-22 Hz activity up to 50 microvolts. There is spontaneous reactivity with stimulation. Stage 2 sleep was reached characterized by symmetric sleep spindles and this comprised the majority of the EEG recording. HV: Hyperventilation was not performed. PHOTIC STIMULATION: Flash stimulation was not performed. IMPRESSION: Abnormal EEG in coma and sleep due to: 1. Moderate generalized slowing 2. Excessive generalized beta activity. 3. Absent posterior dominant rhythm CLINICAL CORRELATION: Moderate generalized slowing is consistent with moderate degree of encephalopathy. The excessive beta activity is likely secondary to medication effect. An EEG without epileptiform discharges does not exclude the possibility of epilepsy.It the clinical suspicion of epilepsy remains, consider additional EEG recordings. Adná John MD Neurophysiology Fellow Joao Blum M.D., FLOR Professor of Neurology [facility] Director, [facility], [facility] Procedure Note Interface, External Ris In - 09/11/2018 9:23 AM CDT DATE OF REPORT: 09/11/2018 ACC: [id number] EE Start time: 09/10 at 15:05 Stop time: 09/11 at 09:20 AM ICD-10: R56.9 CPT Code: 82709 HISTORY: 28 yo male with h/o seizures presents with increased seizures. MEDICATIONS THAT COULD AFFECT EEG: predecex, propofol, tegretol, lamotrigine, phenytoin TECHNICAL SUMMARY: This is a digital EEG recorded with 32 input channels reviewed with bipolar and referential montages using the modified combinatorial system nomenclature. DESCRIPTION OF RECORD: During the occasional maximally alert state, there is no reactive posterior dominant rhythm, though some 6-7 Hz posterior rhythm is seen. The background mostly consists of generalized 4-7 Hz and intermixed 1.3-3 Hz. There is superimposed generalized 18-22 Hz activity up to 50 microvolts. There is spontaneous reactivity with stimulation. Stage 2 sleep was reached characterized by symmetric sleep spindles and this comprised the majority of the EEG recording. HV: Hyperventilation was not performed. PHOTIC STIMULATION: Flash stimulation was not performed. IMPRESSION: Abnormal EEG in coma and sleep due to: 1. Moderate generalized slowing 2. Excessive generalized beta activity. 3. Absent posterior dominant rhythm CLINICAL CORRELATION: Moderate generalized slowing is consistent with moderate degree of encephalopathy. The excessive beta activity is likely secondary to medication effect. An EEG without epileptiform discharges does not exclude the possibility of epilepsy. It the clinical suspicion of epilepsy remains, consider additional EEG recordings. Adán John MD Neurophysiology Fellow Joao Blum M.D., FLOR Professor of Neurology [facility] [employer] Director, [facility] Epilepsy [place], [facility] Performing Organization Address City/State/[facility] Phone Number [facility] Blood gas, arterial (09/11/2018 3:20 AM CDT)Only the most recent of2 resultswithin the time period is included. pH, Arterial 7.38 7.35 - 7.45 [facility] pCO2, Arterial 42 35 - 45 mmHg [facility] pO2, Arterial 120 (H) 80 - 90 mmHg [facility] O2 Sat, Arterial 98.3 (H) 96.0 - 97.0 % [facility] HCO3, Arterial 24 21 - 29 mmol/L [facility] Base Excess, Arterial -0.8 -2.0 - 3.0 mmol/L [facility] Patient Temperature 37.0 C [facility] FIO2 40.0 % [facility] Specimen Blood, Arterial Performing Organization Address City/[facility] Centercode Phone Number [place] [phone] [place] [address] [phone] CENTER Troponin I (09/10/2018 4:39 PM CDT)Only the most recent of2 resultswithin the time period is included. Troponin I <0.01 0.00 - 0.03 ng/mL [facility] Specimen Blood Narrative Performed At Troponin I (TnI) levels must be interpreted [facility] in the context of the presenting symptoms and the clinical findings. Elevated TnI levels indicate myocardial damage, but are not specific for ischemic heart disease. Elevated TnI levels are seen in patients with other cardiac conditions (including myocarditis and congestive heart failure), and slight TnI elevations occur in patients with other conditions, including sepsis, renal failure, acidosis, acute neurological disease, and persistent tachyarrhythmia. Performing Organization Address City/[facility]/Zipcode Phone Number [facility] [place] [address] [place] [address] CENTER EEG AWAKE AND DROWSY (09/10/2018 3:06 PM CDT) Narrative Performed At DATE OF REPORT: 09/10/2018 RIS ACC: [id number] EE Start time: 14:47 Stop time: 15:04 ICD-10: R56.9 CPT Code: 97420 HISTORY: 28 yo male with h/o seizures presents with increased seizures. MEDICATIONS THAT COULD AFFECT EEG: precedex, Propofol, tegretol, lamotrigine, phenytoin TECHNICAL SUMMARY: This is a digital EEG recorded with 32 input channels reviewed with bipolar and referential montages using the modified combinatorial system nomenclature. DESCRIPTION OF RECORD: During the maximally alert state, there is no posterior dominant rhythm. The background consists of generalized 4-7 Hz and intermixed 1.3-3 Hz. There is superimposed generalized 18-22 Hz activity which is more prominent on the frontal channels. There is some spontaneous reactivity and to stimulation during the study. Stage 2 sleep was reached characterized by symmetric sleep spindles. HV: Hyperventilation was not performed. PHOTIC STIMULATION: Flash stimulation was not performed. IMPRESSION: Abnormal EEG in coma and sleep due to: 1. Moderate generalized slowing 2. Excessive generalized beta activity. 3. Absent posterior dominant rhythm CLINICAL CORRELATION: Moderate generalized slowing is consistent with moderate degree of encephalopathy. The excessive beta activity is likely secondary to medication effect. An EEG without epileptiform discharges does not exclude the possibility of epilepsy.It the clinical suspicion of epilepsy remains, consider additional EEG recordings. Adán John MD Neurophysiology Fellow Joao Blum M.D., FLOR Professor of Neurology [facility] [employer] Director, [facility] Procedure Note Interface, External Ris In - 09/10/2018 3:50 PM CDT DATE OF REPORT: 09/10/2018 ACC: [id number] EE Start time: 14:47 Stop time: 15:04 ICD-10: R56.9 CPT Code: 93083 HISTORY: 28 yo male with h/o seizures presents with increased seizures. MEDICATIONS THAT COULD AFFECT EEG: precedex, Propofol, tegretol, lamotrigine, phenytoin TECHNICAL SUMMARY: This is a digital EEG recorded with 32 input channels reviewed with bipolar and referential montages using the modified combinatorial system nomenclature. DESCRIPTION OF RECORD: During the maximally alert state, there is no posterior dominant rhythm. The background consists of generalized 4-7 Hz and intermixed 1.3-3 Hz. There is superimposed generalized 18-22 Hz activity which is more prominent on the frontal channels. There is some spontaneous reactivity and to stimulation during the study. Stage 2 sleep was reached characterized by symmetric sleep spindles. HV: Hyperventilation was not performed. PHOTIC STIMULATION: Flash stimulation was not performed. IMPRESSION: Abnormal EEG in coma and sleep due to: 1. Moderate generalized slowing 2. Excessive generalized beta activity. 3. Absent posterior dominant rhythm CLINICAL CORRELATION: Moderate generalized slowing is consistent with moderate degree of encephalopathy. The excessive beta activity is likely secondary to medication effect. An EEG without epileptiform discharges does not exclude the possibility of epilepsy. It the clinical suspicion of epilepsy remains, consider additional EEG recordings. Adán John MD Neurophysiology Fellow Joao Blum M.D., [facility] Professor of Neurology [facility] Director, [facility] [place] Performing Organization Address City/State/Zipcode Phone Number [facility] XR abdomen / KUB 1 view (09/10/2018 11:58 AM CDT) Narrative Performed At FINAL REPORT [employer] AP abdomen, three images HISTORY: Feeding tube COMPARISON: 11/01/2015 IMPRESSION: Feeding tube present with tip in abdomen. Bowel gas pattern appears grossly nonobstructive. Signed: Edgardo Guzman MD Report Verified Date/Time:09/10/2018 12:12:56 Reading Location: [address] Consult Reading Room Procedure Note Interface, External Ris In - 09/10/2018 12:15 PM CDT FINAL REPORT AP abdomen, three images HISTORY: Feeding tube COMPARISON: 11/01/2015 IMPRESSION: Feeding tube present with tip in abdomen. Bowel gas pattern appears grossly nonobstructive. Signed: Edgardo Guzman MD Report Verified Date/Time: 09/10/2018 12:12:56 Reading Location: [facility] B1 [id number] Ortho Consult Reading Room Performing Organization Address City/State/Zipcode Phone Number JACY SHORE May use line for infusions (09/10/2018 10:39 AM CDT) Narrative Performed At Chandler Braswell MD 09/11/20187:40 AM Central Venous Catheter (CVC, Central Line) Placement A time-out was completed verifying correct patient, procedure, site, positioning, and special equipment if applicable. The patient was placed in a dependent position appropriate for central line placement based on the vein to be cannulated. The patient s right neck was prepped and draped in sterile fashion. 1% Lidocaine was used to anesthetize the surrounding skin area. A triple lumen 7-Wallisian Cordis catheter was introduced into the the internal jugular vein using the Seldinger technique and under ultrasound guidance. The catheter was threaded smoothly over the guide wire and appropriate blood return was obtained. Each lumen of the catheter was evacuated of air and flushed with sterile saline. The catheter was then sutured in place to the skin and a sterile dressing applied. Perfusion to the extremity distal to the point of catheter insertion was checked and found to be adequate. Estimated Blood Loss: 1cc The patient tolerated the procedure well and there were no complications. CXR pending Procedure performed emergently. Dr. Chandler Wolfe, Food Preservation Scientist of Neurology Neurocritical Care and Vascular Neurology [facility]. Drug screen, urine, comprehensive (09/10/2018 10:20 AM CDT)Only the most recent of2 resultswithin the time period is included. Specimen Urine Narrative Performed At Blood culture #1 (09/10/2018 9:22 AM CDT)Only the most recent of2 resultswithin the time period is included. Result No growth in 5 days [facility] Specimen Blood - Central Venous Line Performing Organization Address City/[facility]/Zipcode Phone Number [address] [address] [phone] [place] Sputum Culture + Gram Stain (09/10/2018 9:21 AM CDT) Result 4+ Normal respiratory beatrice [facility] Gram Stain Result 1+ gram positive rods [facility] Gram Stain Result 1+ gram negative cocci [facility] Gram Stain Result 2+ gram positive cocci in [facility] chains MEDICAL [place] Gram Stain Result 1+ gram positive cocci in [facility] clusters [facility] Specimen Sputum - Endotracheal Performing Organization Address [facility]ercodc Phone Number [address] [address] [place] Urine culture (09/10/2018 8:44 AM CDT) Result No growth [facility] Specimen Urine - Urine, Muñoz Performing Organization Address [facility]ercodc Phone Number [address] [address] CENTER aPTT (09/10/2018 8:38 AM CDT) PTT 27.5 22.5 - 36.0 seconds [facility] Specimen Blood Performing Organization Address [facility] Phone Number [address] [address] CENTER Prothrombin time/INR (09/10/2018 8:38 AM CDT) Protime 14.6 11.7 - 14.7 seconds [facility] INR 1.1 <=5.9 [facility] Specimen Blood Narrative Performed At RECOMMENDED COUMADIN/WARFARIN INR THERAPY [facility] RANGES STANDARD DOSE: 2.0 - 3.0 Includes: PROPHYLAXIS for venous thrombosis, systemic embolization; TREATMENT for venous thrombosis and/or pulmonary embolus. HIGH RISK: Target INR is 2.5-3.5 for patients with mechanical heart valves. Performing Organization Address [facility] Centercode Phone Number [address] [address] CENTER Platelet count (09/10/2018 8:38 AM CDT) Platelets 184 150 - 450 K/CU MM [facility] Specimen Blood Performing Organization Address City/[facility] Phone Number [address] [address] [phone] [place] Phenytoin level, total (09/10/2018 8:38 AM CDT) Phenytoin 10.8 10.0 - 20.0 ug/mL [facility] Specimen Blood Performing Organization Address [facility] Phone Number [address] [address] [phone] CENTER Carbamazepine level (09/10/2018 8:38 AM CDT)Only the most recent of2 resultswithin the time period is included. Carbamazepine Lvl 2.2 (L) 4.0 - 12.0 ug/mL [facility] Specimen Blood Performing Organization Address [facility] Phone Number [address] [address] [place] Creatine Kinase (CK) (08/13/2018 6:02 AM CDT)Only the most recent of4 resultswithin the time period is included. Total CK 1,709 (H) 29 - 200 U/L [facility] Specimen Blood - Arm, Right Performing Organization Address [facility]erc[facility] Phone Number [address] [address] CENTER EEG AWAKE AND DROWSY (08/10/2018 3:38 PM CDT) Narrative Performed At Neurophysiology Electroencephalogram Report GE RIS DATE OF REPORT: 08/10/18 Date(s) of Study: 08/10/2018 ACC: [id number] Start time: 1517 hrs Stop time: 1537 hrs ICD-10: R56.9 Unspecified Convulsions CPT Code: 86164 EEG: awake and drowsy <40 min HISTORY: [...] Shamir Najera MD, MS Clinical Neurophysiology/Epilepsy Attending [facility] Neurophysiology Service Procedure Note Interface, External Ris In - 08/10/2018 4:50 PM CDT Neurophysiology Electroencephalogram Report DATE OF REPORT: 08/10/18 Date(s) of Study: 08/10/2018 ACC: [id number] Start time: 1517 hrs Stop time: 1537 hrs ICD-10: R56.9 Unspecified Convulsions CPT Code: 48944 EEG: awake and drowsy <40 min HISTORY: [...] Shamir Najera MD, MS Clinical Neurophysiology/Epilepsy Attending [facility] Neurophysiology Service Performing Organization Address [facility] Phone Number [employer] ECG 12 lead (08/10/2018 4:35 AM CDT) Narrative Performed At Ventricular Rate 69 BPM GE MUSE Atrial Rate 69 BPM P-R Interval 132 ms QRS Duration 88 ms Q-T Interval 390 ms QTC Calculation(Bazett) 417 ms P [place] 14 degrees R [place] 45 degrees T [place] 16 degrees Normal sinus rhythm Normal ECG No previous ECGs available Confirmed by Javier LOPEZ BASANT ([id number]) on 08/10/2018 10:49:51 AM Procedure Note Interface, External Ris In - 08/10/2018 10:49 AM CDT Ventricular Rate 69 BPM Atrial Rate 69 BPM P-R Interval 132 ms QRS Duration 88 ms Q-T Interval 390 ms QTC Calculation(Bazett) 417 ms P [place] 14 degrees R [place] 45 degrees T [place] 16 degrees Normal sinus rhythm Normal ECG No previous ECGs available Confirmed by Javier LOPEZ BASANT ([id number]) on 08/10/2018 10:49:51 AM Performing Organization Address [facility] Phone Number [employer] Urinalysis w/ Microscopic (08/10/2018 4:29 AM CDT) Color, UA Yellow [facility] Clarity, UA Clear [facility] Specific [place], UA 1.011 1.001 - 1.035 [facility] pH, UA 7.0 5.0 - 8.0 [facility] Protein, UA Negative Negative [facility] Glucose, UA Negative Negative [facility] Ketones, UA Negative Negative [facility] Bilirubin, UA Negative Negative [facility] Blood, UA Negative Negative [facility] Nitrite, UA Negative Negative [facility] Leukocytes, UA Negative Negative [facility] Urobilinogen, UA 2.0 (H) 0.2 - 1.0 mg/dL [facility] RBC, UA <1 /HPF [facility] WBC, UA 0 /HPF [facility] Specimen Source [facility] Specimen Urine Performing Organization Address City/State/Zipcode Phone Number [address] [address] [phone] [place] C-Reactive Protein (08/10/2018 1:55 AM CDT) CRP 0.45 0.00 - 0.50 mg/dL [facility] Specimen Blood Performing Organization Address City/[facility]/Zipcode Phone Number [address] [address] [place] Lactic acid, venous, whole blood (08/10/2018 1:55 AM CDT) Lactate, Venous 1.0Comment: Specimen 0.5 - 2.2 mmol/L [facility] slightly hemolyzed [facility] Specimen Blood Narrative Performed At [facility] Effective 03/18/2016: Units/Reference Range Change New: 0.5-2.2 mmol/LPrevious: 5-20 mg/dL Performing Organization Address City/[facility]/Zipcode Phone Number [facility] [place] [address] [place] [address] [phone] CENTER Lamotrigine level (08/10/2018 1:55 AM CDT) Lamotrigine 5.6 4.0 - 18.0 mcg/mL [employer] [facility] Comment: INCORPORATED This test was developed and its analytical performance characteristics have been determined by [facility]. It has not been cleared or approved by the [place] Food and Drug Administration. This assay has been validated pursuant to the CLIA regulations and is used for clinical purposes. Specimen Blood Narrative Performed At Performing Lab [employer] [facility]OR[facility]ATED *[facility] appening Diagnostics [facility], [address] [place] [phone] Jhonny Stanley MD, PhD Performing Organization Address [facility] Phone Number [employer] [address] INCORPORATED [address] [facility] Hepatic function panel (08/10/2018 1:55 AM CDT) Protein, Total 6.5 6.0 - 8.3 gm/dL [facility] Albumin 3.9 3.5 - 5.0 g/dL [facility] Total Bilirubin 0.8 0.2 - 1.2 mg/dL [facility] Bilirubin, Direct 0.3 0.1 - 0.5 mg/dL [facility] Alkaline Phosphatase 85 40 - 150 U/L [facility] AST 43 (H) 5 - 34 U/L [facility] ALT 33 6 - 55 U/L [facility] Specimen Blood Performing Organization Address [facility]/Zipcode Phone Number [facility] [place] [address] [place] [address] [phone] CENTER POCT-HEMATOCRIT (08/10/2018 1:41 AM CDT) POC-Hematocrit 35 (L)Comment: TESTED AT 40 - 50 % [address] [address] Specimen Blood Performing Organization Address City/[facility] Centercode Phone Number [address] [phone] CENTER POCT-HEMOGLOBIN (08/10/2018 1:41 AM CDT) POC-Hemoglobin 11.9 (L)Comment: TESTED AT 13.0 - 16.8 g/dL [address] [place] [address]L[place] AT [address] [address] Specimen Blood Performing Organization Address [facility] Phone Number [address] [phone] CENTER POCT-GLUCOSE (08/10/2018 1:41 AM CDT) POC-Glucose 105Comment: TESTED AT [facility] 70 - 110 mg/dL [address] [address] Specimen Blood Performing Organization Address [facility] Phone Number [address] [address] [phone] [place] POC-Sodium (08/10/2018 1:41 AM CDT) POC-Sodium 140Comment: TESTED AT [facility] 135 - 148 meq/L [address] [address] Specimen Blood Performing Organization Address City/[facility] Centercode Phone Number [address] [address] CENTER POC-Potassium (08/10/2018 1:41 AM CDT) POC-Potassium 3.4 (L)Comment: TESTED AT 3.6 - 5.5 meq/L [address] [address] Specimen Blood Performing Organization Address City/[facility] Centercode Phone Number [address] [address] [place] POC-Calcium ionized (08/10/2018 1:41 AM CDT) POC-Calcium Ionized 1.15Comment: TESTED AT 1.12 - 1.27 mmol/L [address] [address] Specimen Blood Performing Organization Address [facility] Centercode Phone Number [address] [address] [phone] [place] POC-Blood gases, arterial (08/10/2018 1:41 AM CDT) Temp. Celsius-POC 37.0 [facility] FIO2-POC Comment: TESTED AT [address] [address] pH, Arterial-POC 7.396 7.350 - 7.450 [facility] PCO2, Arterial-POC 35.3 35.0 - 45.0 mm Hg [facility] PO2, Arterial-POC 104.0 (H) 80.0 - 90.0 mm Hg [facility] SO2, Arterial-POC 98.0 (H) 96.0 - 97.0 % [facility] HCO3, Arterilal-POC 21.7 21.0 - 29.0 meq/L [facility] BE, Arterial-POC -3.0 (L) -2.0 - 3.0 meq/L [facility] Specimen Blood Performing Organization Address City/[facility] Centercode Phone Number [address] [address] [phone] [place] POC-Lactic Acid, Arterial (08/10/2018 1:35 AM CDT) POC-Lactic Acid, 0.9Comment: TESTED AT 0.4 - 1.3 mmol/L [facility] Arterial [address] [address] Specimen Blood Performing Organization Address City/[facility] Centercode Phone Number [facility] MED[facility] [address] [place] [address] [phone] CENTER after 10/01/2017 Insurance Payer Benefit Plan / Subscriber ID Type Phone Address Group BLUE CROSS/BLUE BCBS PPO POS EPO xxxxxxxxxxxx PPO [phone] [address] [place] [address] Advance Directives For more information, please contact:[facility] [place], [place] [phone] Code Status Date Activated Date Inactivated Comments Full Code 09/10/2018 7:22 AM This code status was determined by: Patient Full Code 08/10/2018 1:35 AM 08/13/2018 8:26 PM This code status was determined by: Patient
--- OUTSIDE RECORDS SUMMARY | 2018-10-02 21:02 | XMS REPORT ---
:1990 [facility] [address] [place] [address] Care Team Providers Name Role Phone CARSON AUGUST Unavailable Unavailable TAZ BRUCE Unavailable Unavailable Problems This patient has no known problems. Allergies, Adverse Reactions, Alerts This patient has no known allergies or adverse reactions. Medications This patient has no known medications. Results Test Description Test Time Test Comments Text Results Atomic Results Result Comments BLOOD CULTURE 2018-09-15 18:00:00 Test Item Value Reference Range Comments CULTURE (BEAKER) (test jmgh=8526) No growth in 5 days BLOOD [id number] 18:00:00 Test Item Value Reference Range Comments CULTURE (BEAKER) (test xlep=5025) No growth in 5 days SPUTUM CULTURE + GRAM [id number] 14:21:00 Test Item Value Reference Range Comments CULTURE (BEAKER) (test 4+ Normal respiratory beatrice hmuh=8805) present GRAM STAIN RESULT (BEAKER) 1+ gram positive rods (test fmhk=2380) GRAM STAIN RESULT (BEAKER) 1+ gram negative cocci (test okwz=54448) GRAM STAIN RESULT (BEAKER) 2+ gram positive cocci in chains (test rmiq=36522) GRAM STAIN RESULT (BEAKER) 1+ gram positive cocci in (test quip=915327) clusters RAD, CHEST, 1 VIEW, NON [id number] 07:27:00Reason for exam:->post intubationShould this be performed at the bedside?->YesFINAL REPORT HISTORY : post intubation. Comparison: 09/11/2018 [...] blastic abnormalities are appreciated. Signed: Sandra Shultz MDReport Verified Date/Time: 09/13/2018 07:27 :51 Reading Location: [facility] Radiology Reading Room [id number] 04:44:00 Test Item Value Reference Range Comments PHOSPHORUS (BEAKER) (test weiq=098) 2.9 mg/dL 2.3-4.7 Check Serum Phosphorus level 4 hours after IV phosphorus replacement or 8 hours after PO replacementcompleted.[id number] 04:44:00 Test Item Value Reference Range Comments MAGNESIUM (BEAKER) (test vfoq=960) 2.2 mg/dL 1.6-2.6 Check Serum Phosphorus level 4 hours after IV phosphorus replacement or 8 hours after PO replacementcompleted.BASIC METABOLIC [id number] 04:44:00 Test Item Value Reference Range Comments SODIUM (BEAKER) (test 142 meq/L 136-145 ufxh=786) POTASSIUM (BEAKER) (test 3.6 meq/L 3.5-5.1 lvmd=034) CHLORIDE (BEAKER) (test 114 meq/L 98-107 xobv=019) CO2 (BEAKER) (test 22 meq/L 22-29 ncdk=210) BLOOD UREA NITROGEN 8 mg/dL 7-21 (BEAKER) (test mvkt=729) CREATININE (BEAKER) (test 0.68 mg/dL 0.57-1.25 igvt=560) GLUCOSE RANDOM (BEAKER) 109 mg/dL 70-105 (test klye=110) CALCIUM (BEAKER) (test 8.4 mg/dL 8.4-10.2 kbtt=383) EGFR (BEAKER) (test 137 mL/min/1.73 sq m ESTIMATED GFR IS NOT dbaq=0584) ACCURATE CREATININE CLEARANCE IN PREDICTING GLOMERULAR FILTRATION RATE. ESTIMATED GFR IS NOT APPLICABLE FOR DIALYSIS PATIENTS. Check Serum Phosphorus level 4 hours after IV phosphorus replacement or 8 hours after PO replacementcompleted.CBC W/PLT COUNT & AUTO [id number] 04:19:00 Test Item Value Reference Range Comments WHITE BLOOD CELL COUNT (BEAKER) (test nsrr=288) 6.1 K/ L 3.5-10.5 RED BLOOD CELL COUNT (BEAKER) (test yypp=047) 3.85 M/ L 4.63-6.08 HEMOGLOBIN (BEAKER) (test bqca=475) 11.4 GM/DL 13.7-17.5 HEMATOCRIT (BEAKER) (test chcd=590) 35.1 % 40.1-51.0 MEAN CORPUSCULAR VOLUME (BEAKER) (test bkfx=143) 91.2 fL 79.0-92.2 MEAN CORPUSCULAR HEMOGLOBIN (BEAKER) (test 29.6 pg 25.7-32.2 hyrp=422) MEAN CORPUSCULAR HEMOGLOBIN CONC (BEAKER) (test 32.5 GM/DL 32.3-36.5 bumt=390) RED CELL DISTRIBUTION WIDTH (BEAKER) (test 13.7 % 11.6-14.4 udtc=879) PLATELET COUNT (BEAKER) (test xuks=838) 162 K/CU MM 150-450 MEAN PLATELET VOLUME (BEAKER) (test azif=386) 10.4 fL 9.4-12.4 NUCLEATED RED BLOOD CELLS (BEAKER) (test 0 /100 WBC 0-0 jrau=838) NEUTROPHILS RELATIVE PERCENT (BEAKER) (test 58 % oxsg=921) LYMPHOCYTES RELATIVE PERCENT (BEAKER) (test 32 % fzoi=934) MONOCYTES RELATIVE PERCENT (BEAKER) (test 9 % luhw=985) EOSINOPHILS RELATIVE PERCENT (BEAKER) (test 1 % jnpo=401) BASOPHILS RELATIVE PERCENT (BEAKER) (test 0 % vwsa=526) NEUTROPHILS ABSOLUTE COUNT (BEAKER) (test 3.54 K/ L 1.78-5.38 hzui=218) LYMPHOCYTES ABSOLUTE COUNT (BEAKER) (test 1.93 K/ L 1.32-3.57 thoc=871) MONOCYTES ABSOLUTE COUNT (BEAKER) (test 0.52 K/ L 0.30-0.82 wbhm=686) EOSINOPHILS ABSOLUTE COUNT (BEAKER) (test 0.07 K/ L 0.04-0.54 aurc=616) BASOPHILS ABSOLUTE COUNT (BEAKER) (test 0.02 K/ L 0.01-0.08 iewm=438) IMMATURE GRANULOCYTES-RELATIVE PERCENT (BEAKER) 0 % 0-1 (test lbuz=0092) [id number] 18:41:00 Test Item Value Reference Range Comments POTASSIUM (MAXIMINO) (test vzsc=555) 3.9 meq/L 3.5-5.1 Check Serum Potassium level 2 hours after oral potassium replacement completed or 30 min after intravenous potassium replacement.[id number] 18:41:00 Test Item Value Reference Range Comments MAGNESIUM (MAXIMINO) (test mdif=677) 2.9 mg/dL 1.6-2.6 Check Serum Potassium level 2 hours after oral potassium replacement completed or 30 min after intravenous potassium replacement.EEG MONITORING WITH VIDEO RECORDING EACH 24 [id number] 14:34:00billing for 09/12 AMDATE OF REPORT: ACC: [id number] EE Start time: 09/11 at 0920 AM Stop time: 09/12 at 11:11 AM ICD-10: R56.9 CPT Code: 43552 HISTORY: 28 year old male p/w increased seizure frequency in the setting of psychiatric issues and suicidal ideation. MEDICATIONS THAT COULD AFFECTEEG: Dexmedetomidine, propofol, carbamazepine, lamotrigine, phenytoin TECHNICAL SUMMARY: This vance digital video EEG recorded with 32 input [...] and appearance. IMPRESSION: This is a normal continuousvideo EEG that captures wakefulness and sleep. There are no epileptiform discharges or electrographic seizures. Rosalio Trujillo MD Neurophysiology Fellow Davis Cintron MD, PhD Attending Neurophysiologist [facility] [place] [id number] 12:15:00 Test Item Value Reference Range Comments MAGNESIUM (BEAKER) (test gjkp=028) 1.9 mg/dL 1.6-2.6 Check Serum Phosphorus level 4 hours after IV phosphorus replacement or 8 hours after PO replacementcompleted.Check Serum Potassium level 2 hours after oral potassium replacement completed or 30 min after intravenous potassium replacement.[id number] 12:15:00 Test Item Value Reference Range Comments PHOSPHORUS (BEAKER) (test wila=986) 2.0 mg/dL 2.3-4.7 Check Serum Phosphorus level 4 hours after IV phosphorus replacement or 8 hours after PO replacementcompleted.Check Serum Potassium level 2 hours after oral potassium replacement completed or 30 min after intravenous potassium replacement.[id number] 12:14:00 Test Item Value Reference Range Comments POTASSIUM (BEAKER) (test napj=034) 3.6 meq/L 3.5-5.1 Check Serum Phosphorus level 4 hours after IV phosphorus replacement or 8 hours after PO replacementcompleted.Check Serum Potassium level 2 hours after oral potassium replacement completed or 30 min after intravenous potassium replacement.CALCIUM, [id number] 11:49:00 Test Item Value Reference Range Comments CALCIUM IONIZED (BEAKER) (test jeed=634) 1.09 mmol/L 1.12-1.27 PH, BLOOD (BEAKER) (test ugrl=2783) 7.46 Check serum Ionized Calcium level after 4 hours after IV Calcium replacement.URINE [id number] 08:18:00 Test Item Value Reference Range Comments CULTURE (BEAKER) (test lizj=1708) No growth [id number] 03:59:00 Test Item Value Reference Range Comments PHOSPHORUS (BEAKER) (test tvat=521) 2.5 mg/dL 2.3-4.7 Check Serum Phosphorus level 4 hours after IV phosphorus replacement or 8 hours after PO replacementcompleted.[id number] 03:59:00 Test Item Value Reference Range Comments MAGNESIUM (BEAKER) (test ckjg=680) 2.1 mg/dL 1.6-2.6 Check Serum Phosphorus level 4 hours after IV phosphorus replacement or 8 hours after PO replacementcompleted.BASIC METABOLIC [id number] 03:59:00 Test Item Value Reference Range Comments SODIUM (BEAKER) (test 143 meq/L 136-145 plrv=940) POTASSIUM (BEAKER) (test 3.3 meq/L 3.5-5.1 thxr=384) CHLORIDE (BEAKER) (test 112 meq/L 98-107 nkjk=259) CO2 (BEAKER) (test 25 meq/L 22-29 mxbb=479) BLOOD UREA NITROGEN 5 mg/dL 7-21 (BEAKER) (test mnpo=263) CREATININE (BEAKER) (test 0.65 mg/dL 0.57-1.25 xmfa=742) GLUCOSE RANDOM (BEAKER) 92 mg/dL 70-105 (test nqeb=272) CALCIUM (BEAKER) (test 8.4 mg/dL 8.4-10.2 exce=942) EGFR (BEAKER) (test 144 mL/min/1.73 sq m ESTIMATED GFR IS NOT dcmd=4728) ACCURATE CREATININE CLEARANCE IN PREDICTING GLOMERULAR FILTRATION RATE. ESTIMATED GFR IS NOT APPLICABLE FOR DIALYSIS PATIENTS. Check Serum Phosphorus level 4 hours after IV phosphorus replacement or 8 hours after PO replacementcompleted.CBC W/PLT COUNT & AUTO [id number] 03:41:00 Test Item Value Reference Range Comments WHITE BLOOD CELL COUNT (BEAKER) (test xnvu=100) 8.0 K/ L 3.5-10.5 RED BLOOD CELL COUNT (BEAKER) (test tcwf=419) 3.69 M/ L 4.63-6.08 HEMOGLOBIN (BEAKER) (test ezxy=842) 11.0 GM/DL 13.7-17.5 HEMATOCRIT (BEAKER) (test fcet=920) 33.5 % 40.1-51.0 MEAN CORPUSCULAR VOLUME (BEAKER) (test aium=481) 90.8 fL 79.0-92.2 MEAN CORPUSCULAR HEMOGLOBIN (BEAKER) (test 29.8 pg 25.7-32.2 osou=312) MEAN CORPUSCULAR HEMOGLOBIN CONC (BEAKER) (test 32.8 GM/DL 32.3-36.5 ovcy=344) RED CELL DISTRIBUTION WIDTH (BEAKER) (test 13.5 % 11.6-14.4 wkot=435) PLATELET COUNT (BEAKER) (test nigc=996) 153 K/CU MM 150-450 MEAN PLATELET VOLUME (BEAKER) (test mdea=181) 10.5 fL 9.4-12.4 NUCLEATED RED BLOOD CELLS (BEAKER) (test 0 /100 WBC 0-0 ymcn=226) NEUTROPHILS RELATIVE PERCENT (BEAKER) (test 62 % arqm=594) LYMPHOCYTES RELATIVE PERCENT (BEAKER) (test 29 % elts=044) MONOCYTES RELATIVE PERCENT (BEAKER) (test 8 % degt=623) EOSINOPHILS RELATIVE PERCENT (BEAKER) (test 1 % pwpd=126) BASOPHILS RELATIVE PERCENT (BEAKER) (test 0 % izhn=466) NEUTROPHILS ABSOLUTE COUNT (BEAKER) (test 4.92 K/ L 1.78-5.38 fxwn=554) LYMPHOCYTES ABSOLUTE COUNT (BEAKER) (test 2.31 K/ L 1.32-3.57 chtj=700) MONOCYTES ABSOLUTE COUNT (BEAKER) (test 0.65 K/ L 0.30-0.82 xkfj=634) EOSINOPHILS ABSOLUTE COUNT (BEAKER) (test 0.06 K/ L 0.04-0.54 uyte=548) BASOPHILS ABSOLUTE COUNT (BEAKER) (test 0.02 K/ L 0.01-0.08 nloi=520) IMMATURE GRANULOCYTES-RELATIVE PERCENT (BEAKER) 0 % 0-1 (test zlmt=0493) POCT-GLUCOSE [id number] 23:55:00 Test Item Value Reference Range Comments POC-GLUCOSE METER (BEAKER) 94 mg/dL 70-[address] [facility] [address] [place] [address] (test snjo=9674) [facility] [address] [id number] 18:08:00 Test Item Value Reference Range Comments POTASSIUM (BEAKER) (test wbvo=800) 3.4 meq/L 3.5-5.1 Check Serum Potassium level 2 hours after oral potassium replacement completed or 30 min after intravenous potassium replacement.EEG MONITORING WITH VIDEO RECORDING EACH 24 [id number] 09:23:00DATE OF REPORT: 09/11/2018ACC: [id number]: Start time: 09/10 at 15:05Stop time: 09/11 at 09:20 AMICD-10 : R56.9CPT Code: 74893 HISTORY: 28 yo male with h/o seizures [...] recording. HV: Hyperventilation was not performed. PHOTIC STIMULATION : Flash stimulation was not performed. IMPRESSION: Abnormal EEG in coma and sleep due to: 1. Moderate generalized slowing 2. Excessive generalized beta activity. 3. Absent posterior dominant rhythm CLINICAL CORRELATION: Moderate generalized slowing is consistent with moderate degree of encephalopathy. The excessive beta activity is likely secondary to medication effect.An EEG without epileptiform discharges does not exclude the possibility of epilepsy. It the clinical suspicion of epilepsy remains, consider additional EEG recordings. Adán John MDNeurophysiology Fellow Joao Blum M.D., FACNSProfessor of NeurologyMarian Regional Medical CenterDirector, [facility] Epilepsy [facility] Neuro[facility] Electronically signed by:JOAO BLUM on 2017 09:23 AMRAD, CHEST, 1 VIEW, NON [id number] 07:32:00Reason for exam:-&gt ;post intubationShould this be performed at the bedside?->YesFINAL REPORT CLINICAL HISTORY: post intubation TECHNIQUE: 1 view of the chest. COMPARISON: 09/10/2018 IMPRESSION: The ETT projects 4.5 cm above the raghav, right central line near the cavoatrial junction, with a new NGT below the diaphragm. There is bibasilar atelectasis. There is no significant appearing pleural fluid. The cardiomediastinal silhouette is magnified by technique. Signed: Kody Vuong [facility] Verified Date/Time: 09/11/2018 07:32: 46 Reading Location: [facility] B1 C013V Neuro Reading Room POCT-GLUCOSE [id number] 06: 30:00 Test Item Value Reference Range Comments POC-GLUCOSE METER (BEAKER) 111 mg/dL 70-[address] [facility] [address] [facility] (test zcyf=6633) [facility] [address] BASIC METABOLIC [id number] 06:06:00 Test Item Value Reference Range Comments SODIUM (BEAKER) (test 138 meq/L 136-145 jtfr=590) POTASSIUM (BEAKER) (test 3.4 meq/L 3.5-5.1 pqxc=683) CHLORIDE (BEAKER) (test 110 meq/L 98-107 blnk=649) CO2 (BEAKER) (test 20 meq/L 22-29 befe=517) BLOOD UREA NITROGEN 8 mg/dL 7-21 (BEAKER) (test frob=425) CREATININE (BEAKER) (test 0.70 mg/dL 0.57-1.25 npyu=759) GLUCOSE RANDOM (BEAKER) 107 mg/dL 70-105 (test iiuj=145) CALCIUM (BEAKER) (test 8.4 mg/dL 8.4-10.2 dmcm=026) EGFR (BEAKER) (test 132 mL/min/1.73 sq m ESTIMATED GFR IS NOT qyeu=2221) ACCURATE CREATININE CLEARANCE IN PREDICTING GLOMERULAR FILTRATION RATE. ESTIMATED GFR IS NOT APPLICABLE FOR DIALYSIS PATIENTS. CBC W/PLT COUNT & AUTO [id number] 03:47:00 Test Item Value Reference Range Comments WHITE BLOOD CELL COUNT (BEAKER) (test ltqh=751) 7.9 K/ L 3.5-10.5 RED BLOOD CELL COUNT (BEAKER) (test rcmv=958) 3.85 M/ L 4.63-6.08 HEMOGLOBIN (BEAKER) (test ddty=153) 11.4 GM/DL 13.7-17.5 HEMATOCRIT (BEAKER) (test goug=773) 34.7 % 40.1-51.0 MEAN CORPUSCULAR VOLUME (BEAKER) (test ypvh=539) 90.1 fL 79.0-92.2 MEAN CORPUSCULAR HEMOGLOBIN (BEAKER) (test 29.6 pg 25.7-32.2 oazy=673) MEAN CORPUSCULAR HEMOGLOBIN CONC (BEAKER) (test 32.9 GM/DL 32.3-36.5 hclz=095) RED CELL DISTRIBUTION WIDTH (BEAKER) (test 14.2 % 11.6-14.4 azhm=359) PLATELET COUNT (BEAKER) (test ulxz=636) 163 K/CU MM 150-450 MEAN PLATELET VOLUME (BEAKER) (test kabw=880) 10.3 fL 9.4-12.4 NUCLEATED RED BLOOD CELLS (BEAKER) (test 0 /100 WBC 0-0 rqbf=184) NEUTROPHILS RELATIVE PERCENT (BEAKER) (test 68 % osqd=962) LYMPHOCYTES RELATIVE PERCENT (BEAKER) (test 23 % kzsa=917) MONOCYTES RELATIVE PERCENT (BEAKER) (test 8 % sqsb=979) EOSINOPHILS RELATIVE PERCENT (BEAKER) (test 0 % ddqy=919) BASOPHILS RELATIVE PERCENT (BEAKER) (test 0 % jfdu=453) NEUTROPHILS ABSOLUTE COUNT (BEAKER) (test 5.41 K/ L 1.78-5.38 bfsx=873) LYMPHOCYTES ABSOLUTE COUNT (BEAKER) (test 1.79 K/ L 1.32-3.57 kktt=590) MONOCYTES ABSOLUTE COUNT (BEAKER) (test 0.67 K/ L 0.30-0.82 xlux=937) EOSINOPHILS ABSOLUTE COUNT (BEAKER) (test 0.02 K/ L 0.04-0.54 vlmj=459) BASOPHILS ABSOLUTE COUNT (BEAKER) (test 0.03 K/ L 0.01-0.08 bjyg=951) IMMATURE GRANULOCYTES-RELATIVE PERCENT (BEAKER) 0 % 0-1 (test jass=3470) BLOOD GAS, [id number] 03:32:00 Test Item Value Reference Range Comments PH ARTERIAL (BEAKER) (test bynn=330) 7.38 7.35-7.45 PCO2 ARTERIAL (BEAKER) (test uyer=184) 42 mmHg 35-45 PO2 ARTERIAL (BEAKER) (test vekr=283) 120 mmHg 80-90 O2 SATURATION ARTERIAL (BEAKER) (test iwmj=514) 98.3 % 96.0-97.0 HCO3 ARTERIAL (BEAKER) (test mmex=011) 24 mmol/L 21-29 BASE EXCESS ARTERIAL (BEAKER) (test ypfh=271) -0.8 mmol/L -2.0-3.0 PATIENT TEMPERATURE (BEAKER) (test pgye=4541) 37.0 C FIO2 (BEAKER) (test aqwq=9920) 40.0 % POCT-GLUCOSE [id number] 01:01:00 Test Item Value Reference Range Comments POC-GLUCOSE METER (BEAKER) 91 mg/dL 70-[address] [facility] [address] [facility] (test namb=7690) [facility] [address] TROPONIN [id number] 17:18:00 Test Item Value Reference Range Comments TROPONIN I (BEAKER) (test uppi=384) < ng/mL 0.00-0.03 Troponin I (TnI) levels must be interpreted in the context of the presenting symptoms and the clinical findings. Elevated TnI levels indicate myocardial damage, but are not specific for ischemic heart disease. Elevated TnI levels are seen in patients with other cardiac conditions (including myocarditis and congestive heart failure), and slight TnI elevations occur in patients with other conditions, including sepsis, renal failure, acidosis, acute neurological disease, and persistent tachyarrhythmia.EEG AWAKE AND [id number] 15:50: 00Reason for exam:->Status epilepticus, c EEG for evaluation of subclinical seizures Should this beperformed at the bedside?->YesDATE OF REPORT: 2017ACC: [id number]: [id number] time: 14:47Stop time: 15:04ICD-10: R56.9CPTCode: 50630 HISTORY: 28 yo male with h/o seizures presents with increased seizures. MEDICATIONS THATCOULD AFFECT EEG: precedex, Propofol, tegretol, lamotrigine, phenytoin TECHNICAL SUMMARY: This is a digital EEG recorded with 32 input channels reviewed with bipolar and referential montages using the modified combinatorial system nomenclature. DESCRIPTION OF RECORD: During the maximally alert state,there is no posterior dominant rhythm. The background consists of generalized 4-7 Hz and intermixed 1.3-3 Hz. There is superimposed generalized 18-22 Hz activity which is more prominent on the frontal channels. There is some spontaneous reactivity and to stimulation during the study. Stage 2 sleep wasreached characterized by symmetric sleep spindles. HV: Hyperventilation was not performed. PHOTICSTIMULATION: Flash stimulation was not performed. IMPRESSION: Abnormal EEG in coma and sleep due to : 1. Moderate generalized slowing 2. Excessive generalized beta activity. 3. Absent posterior dominant rhythm CLINICAL CORRELATION: Moderate generalized slowing is consistent with moderate degree of encephalopathy. The excessive beta activity is likely secondary to medication effect.An EEG without epileptiform discharges does not exclude the possibility of epilepsy. It the clinical suspicion of epilepsy remains, consider additional EEG recordings. Adán John MDNeurophysiology Fellow Joao Blum M.D., FACNSProfessor of NeurologyMarian Regional Medical CenterDirector, [facility] Epilepsy [place] BLOOD GAS, [id number] 12:32:00 Test Item Value Reference Range Comments PH ARTERIAL (BEAKER) (test fycn=593) 7.37 7.35-7.45 PCO2 ARTERIAL (BEAKER) (test xybw=999) 38 mmHg 35-45 PO2 ARTERIAL (BEAKER) (test clmd=497) 208 mmHg 80-90 O2 SATURATION ARTERIAL (BEAKER) (test irsd=970) 99.4 % 96.0-97.0 HCO3 ARTERIAL (BEAKER) (test jmcd=704) 21 mmol/L 21-29 BASE EXCESS ARTERIAL (BEAKER) (test ytpr=718) -3.4 mmol/L -2.0-3.0 PATIENT TEMPERATURE (BEAKER) (test yhmm=8631) 37.1 C FIO2 (BEAKER) (test sycl=8510) 40.0 % RAD, ABDOMEN/KUB, 1 VIEW [id number] 12:12:00Reason for exam:->corpakShould this be performed at the bedside?->YesFINAL REPORT AP abdomen, three images HISTORY: Feeding tube COMPARISON: 11/01/2015 IMPRESSION: Feeding tube present with tip in abdomen. Bowel gas pattern appears grossly nonobstructive. Signed: Edgardo Guzman MDReport Verified Date/Time: 2017 12:12:56 Reading Location: [address] Consult Reading Room RAD , CHEST, 1 VIEW, NON [id number] 10:40:00Reason for exam:->post intubationShould this be performed at the bedside?->YesFINAL REPORT AP chest HISTORY: Intubation COMPARISON: None IMPRESSION: Endotracheal tube in satisfactory position. Right IJ central venous catheter at mid SVC. Heart size normal. Mild perihilar atelectasis. Lungs otherwise clear. No pneumothorax. Signed: Edgardo Guzman MDReport Verified Date/Time: 2017 10:40:47 Reading Location: [facility] B1 C013X Ortho Consult Reading Room TROPONIN [id number] 09:21:00 Test Item Value Reference Range Comments TROPONIN I (BEAKER) (test wbhj=505) < ng/mL 0.00-0.03 Troponin I (TnI) levels must be interpreted in the context of the presenting symptoms and the clinical findings. Elevated TnI levels indicate myocardial damage, but are not specific for ischemic heart disease. Elevated TnI levels are seen in patients with other cardiac conditions (including myocarditis and congestive heart failure), and slight TnI elevations occur in patients with other conditions, including sepsis, renal failure, acidosis, acute neurological disease, and persistent tachyarrhythmia.[id number] 09:19:00 Test Item Value Reference Range Comments CARBAMAZEPINE LEVEL (BEAKER) (test qyyc=804) 2.2 ug/mL 4.0-12.0 PHENYTOIN LEVEL, [id number] 09:18:00 Test Item Value Reference Range Comments PHENYTOIN (DILANTIN) (BEAKER) (test lirp=710) 10.8 ug/mL 10.0-20.0 [id number] 09:03:00 Test Item Value Reference Range Comments PARTIAL THROMBOPLASTIN TIME (BEAKER) (test 27.5 seconds 22.5-36.0 nguc=299) PROTHROMBIN TIME/[id number] 09:02:00 Test Item Value Reference Range Comments PROTIME (BEAKER) (test rcek=073) 14.6 seconds 11.7-14.7 INR (BEAKER) (test hqgn=907) 1.1 <=5.9 RECOMMENDED COUMADIN/WARFARIN INR THERAPY RANGESSTANDARD DOSE: 2.0 - 3.0 Includes: PROPHYLAXIS forvenous thrombosis, systemic embolization; TREATMENT for venous thrombosis and/or pulmonary embolus.HIGH RISK: Target INR is 2.5-3.5 for patients with mechanical heart valves.PLATELET [id number] 08:53:00 Test Item Value Reference Range Comments PLATELET COUNT (BEAKER) (test knab=879) 184 K/CU MM 150-450 BASIC METABOLIC [id number] 07:07:00 Test Item Value Reference Range Comments SODIUM (BEAKER) (test 140 meq/L 136-145 meye=058) POTASSIUM (BEAKER) (test 4.0 meq/L 3.5-5.1 qsmc=188) CHLORIDE (BEAKER) (test 115 meq/L 98-107 hoin=801) CO2 (BEAKER) (test 20 meq/L 22-29 oelq=129) BLOOD UREA NITROGEN 7 mg/dL 7-21 (BEAKER) (test vfvk=699) CREATININE (BEAKER) (test 0.83 mg/dL 0.57-1.25 tonu=573) GLUCOSE RANDOM (BEAKER) 95 mg/dL 70-105 (test fixc=630) CALCIUM (BEAKER) (test 8.6 mg/dL 8.4-10.2 jolm=013) EGFR (BEAKER) (test 109 mL/min/1.73 sq m ESTIMATED GFR IS NOT cqne=5825) ACCURATE CREATININE CLEARANCE IN PREDICTING GLOMERULAR FILTRATION RATE. ESTIMATED GFR IS NOT APPLICABLE FOR DIALYSIS PATIENTS. CREATINE KINASE (CK)2018-08-13 07:07:00 Test Item Value Reference Range Comments CREATINE KINASE TOTAL (BEAKER) (test czrn=448) 1709 U/L 29-200 BASIC METABOLIC [id number] 05:19:00 Test Item Value Reference Range Comments SODIUM (BEAKER) (test 141 meq/L 136-145 uqrk=451) POTASSIUM (BEAKER) (test 4.1 meq/L 3.5-5.1 wcpb=091) CHLORIDE (BEAKER) (test 117 meq/L 98-107 ocjz=142) CO2 (BEAKER) (test 19 meq/L 22-29 bjan=117) BLOOD UREA NITROGEN 11 mg/dL 7-21 (BEAKER) (test djtl=267) CREATININE (BEAKER) (test 0.84 mg/dL 0.57-1.25 wseo=652) GLUCOSE RANDOM (BEAKER) 97 mg/dL 70-105 (test fhik=452) CALCIUM (BEAKER) (test 8.8 mg/dL 8.4-10.2 crbl=086) EGFR (BEAKER) (test 107 mL/min/1.73 sq m ESTIMATED GFR IS NOT mpbf=9412) ACCURATE CREATININE CLEARANCE IN PREDICTING GLOMERULAR FILTRATION RATE. ESTIMATED GFR IS NOT APPLICABLE FOR DIALYSIS PATIENTS. CREATINE KINASE (CK)2018-08-12 05:19:00 Test Item Value Reference Range Comments CREATINE KINASE TOTAL (BEAKER) (test eobb=478) 1766 U/L 29-200 POCT-GLUCOSE [id number] 17:02:00 Test Item Value Reference Range Comments POC-GLUCOSE METER (BEAKER) 93 mg/dL 70-[address] [facility] [address] [facility] (test dork=7618) [facility] [address] [id number] 04:54:00 Test Item Value Reference Range Comments MAGNESIUM (BEAKER) (test tiap=989) 2.1 mg/dL 1.6-2.6 BASIC METABOLIC [id number] 04:54:00 Test Item Value Reference Range Comments SODIUM (BEAKER) (test 142 meq/L 136-145 xvvs=281) POTASSIUM (BEAKER) (test 4.4 meq/L 3.5-5.1 weqc=557) CHLORIDE (BEAKER) (test 116 meq/L 98-107 djsp=765) CO2 (BEAKER) (test 22 meq/L 22-29 qnar=534) BLOOD UREA NITROGEN 8 mg/dL 7-21 (BEAKER) (test oezw=096) CREATININE (BEAKER) (test 0.84 mg/dL 0.57-1.25 zxxp=246) GLUCOSE RANDOM (BEAKER) 88 mg/dL 70-105 (test emma=606) CALCIUM (BEAKER) (test 9.0 mg/dL 8.4-10.2 jker=466) EGFR (BEAKER) (test 107 mL/min/1.73 sq m ESTIMATED GFR IS NOT sxhw=5407) ACCURATE CREATININE CLEARANCE IN PREDICTING GLOMERULAR FILTRATION RATE. ESTIMATED GFR IS NOT APPLICABLE FOR DIALYSIS PATIENTS. CREATINE KINASE (CK)2018-08-11 04:54:00 Test Item Value Reference Range Comments CREATINE KINASE TOTAL (BEAKER) (test vbsd=207) 2031 U/L 29-200 EEG AWAKE AND [id number] 16:50:00Reason for exam:->seizure disorderNeurophysiology Electroencephalogram Report DATE OF REPORT: 08/10/18Date( s) of Study: 08/10/2018ACC: [id number]: [id number] time: 1517 hrsStop time: 1537 hrsICD-10: R56.9 Unspecified ConvulsionsCPT Code: 60667 EEG: awake and drowsy <40 min HISTORY: [...] additional EEG recordings. Tisha Brown MDEpilepsy Fellow Shamir Najera MD, MSClinical Neurophysiology/Epilepsy Attending [facility] Neurophysiology Service URINALYSIS W/ [id number] 05: 20:00 Test Item Value Reference Range Comments COLOR (BEAKER) (test khok=931) Yellow CLARITY (BEAKER) (test gyut=996) Clear SPECIFIC GRAVITY UA (BEAKER) (test bdus=373) 1.011 1.001-1.035 PH UA (BEAKER) (test jnel=060) 7.0 5.0-8.0 PROTEIN UA (BEAKER) (test igjm=933) Negative Negative GLUCOSE UA (BEAKER) (test jlou=651) Negative Negative KETONES UA (BEAKER) (test dain=146) Negative Negative BILIRUBIN UA (BEAKER) (test pbbu=410) Negative Negative BLOOD UA (BEAKER) (test jevw=408) Negative Negative NITRITE UA (BEAKER) (test lkvv=803) Negative Negative LEUKOCYTE ESTERASE UA (BEAKER) (test yivc=583) Negative Negative UROBILINOGEN UA (BEAKER) (test kbzo=553) 2.0 mg/dL 0.2-1.0 RBC UA (BEAKER) (test tagr=952) < /HPF WBC UA (BEAKER) (test zsik=791) 0 /HPF SOURCE(BEAKER) (test nwox=6188) [id number] 03:17:00 Test Item Value Reference Range Comments CARBAMAZEPINE LEVEL (BEAKER) (test ionk=296) < ug/mL 4.0-12.0 [id number] 02:33:00 Test Item Value Reference Range Comments PHOSPHORUS (BEAKER) (test xvjq=129) 2.8 mg/dL 2.3-4.7 [id number] 02:33:00 Test Item Value Reference Range Comments MAGNESIUM (BEAKER) (test tfnm=166) 2.2 mg/dL 1.6-2.6 BASIC METABOLIC [id number] 02:33:00 Test Item Value Reference Range Comments SODIUM (BEAKER) (test 138 meq/L 136-145 acyu=224) POTASSIUM (BEAKER) (test 3.4 meq/L 3.5-5.1 kkmp=058) CHLORIDE (BEAKER) (test 109 meq/L 98-107 melc=116) CO2 (BEAKER) (test 21 meq/L 22-29 daek=244) BLOOD UREA NITROGEN 16 mg/dL 7-21 (BEAKER) (test mbai=225) CREATININE (BEAKER) (test 0.83 mg/dL 0.57-1.25 hxug=240) GLUCOSE RANDOM (BEAKER) 105 mg/dL 70-105 (test rdud=304) CALCIUM (BEAKER) (test 8.7 mg/dL 8.4-10.2 odjn=341) EGFR (BEAKER) (test 109 mL/min/1.73 sq m ESTIMATED GFR IS NOT nwwr=1517) ACCURATE CREATININE CLEARANCE IN PREDICTING GLOMERULAR FILTRATION RATE. ESTIMATED GFR IS NOT APPLICABLE FOR DIALYSIS PATIENTS. HEPATIC FUNCTION [id number] 02:33:00 Test Item Value Reference Range Comments TOTAL PROTEIN (BEAKER) (test odyk=340) 6.5 gm/dL 6.0-8.3 ALBUMIN (BEAKER) (test zcts=7017) 3.9 g/dL 3.5-5.0 BILIRUBIN TOTAL (BEAKER) (test jkxd=271) 0.8 mg/dL 0.2-1.2 BILIRUBIN DIRECT (BEAKER) (test shri=236) 0.3 mg/dL 0.1-0.5 ALKALINE PHOSPHATASE (BEAKER) (test xhqt=887) 85 U/L 40-150 AST (SGOT) (BEAKER) (test qaek=037) 43 U/L 5-34 ALT (SGPT) (BEAKER) (test bbcn=248) 33 U/L 6-55 CREATINE KINASE (CK)2018-08-10 02:33:00 Test Item Value Reference Range Comments CREATINE KINASE TOTAL (BEAKER) (test wbkr=042) 968 U/L 29-200 C-REACTIVE [id number] 02:33:00 Test Item Value Reference Range Comments C-REACTIVE PROTEIN (BEAKER) (test qawx=913) 0.45 mg/dL 0.00-0.50 LACTIC ACID, VENOUS, WHOLE [id number] 02:26:00 Test Item Value Reference Range Comments LACTATE BLOOD VENOUS (2) 1.0 mmol/L 0.5-2.2 Specimen slightly hemolyzed (BEAKER) (test hyja=8761) Effective 03/18/2016: Units/Reference Range ChangeNew: 0.5-2.2 mmol/L Previous: 5 -20 mg/dLCBC W/PLT COUNT & AUTO [id number] 02:05:00 Test Item Value Reference Range Comments WHITE BLOOD CELL COUNT (BEAKER) (test mmyf=969) 7.7 K/ L 3.5-10.5 RED BLOOD CELL COUNT (BEAKER) (test zjrv=873) 4.16 M/ L 4.63-6.08 HEMOGLOBIN (BEAKER) (test hqqg=299) 12.3 GM/DL 13.7-17.5 HEMATOCRIT (BEAKER) (test ryfb=760) 36.8 % 40.1-51.0 MEAN CORPUSCULAR VOLUME (BEAKER) (test hgbv=910) 88.5 fL 79.0-92.2 MEAN CORPUSCULAR HEMOGLOBIN (BEAKER) (test 29.6 pg 25.7-32.2 jnpz=782) MEAN CORPUSCULAR HEMOGLOBIN CONC (BEAKER) (test 33.4 GM/DL 32.3-36.5 qokh=565) RED CELL DISTRIBUTION WIDTH (BEAKER) (test 13.4 % 11.6-14.4 lsil=165) PLATELET COUNT (BEAKER) (test pjbo=496) 195 K/CU MM 150-450 MEAN PLATELET VOLUME (BEAKER) (test aqup=346) 11.2 fL 9.4-12.4 NUCLEATED RED BLOOD CELLS (BEAKER) (test 0 /100 WBC 0-0 lwfl=570) NEUTROPHILS RELATIVE PERCENT (BEAKER) (test 58 % qadq=470) LYMPHOCYTES RELATIVE PERCENT (BEAKER) (test 30 % jsys=276) MONOCYTES RELATIVE PERCENT (BEAKER) (test 10 % uuyh=661) EOSINOPHILS RELATIVE PERCENT (BEAKER) (test 2 % qfys=976) BASOPHILS RELATIVE PERCENT (BEAKER) (test 1 % kwuw=109) NEUTROPHILS ABSOLUTE COUNT (BEAKER) (test 4.46 K/ L 1.78-5.38 ymdp=502) LYMPHOCYTES ABSOLUTE COUNT (BEAKER) (test 2.31 K/ L 1.32-3.57 kond=322) MONOCYTES ABSOLUTE COUNT (BEAKER) (test 0.74 K/ L 0.30-0.82 kzgd=541) EOSINOPHILS ABSOLUTE COUNT (BEAKER) (test 0.13 K/ L 0.04-0.54 pvev=917) BASOPHILS ABSOLUTE COUNT (BEAKER) (test 0.04 K/ L 0.01-0.08 rvya=964) IMMATURE GRANULOCYTES-RELATIVE PERCENT (BEAKER) 0 % 0-1 (test gmty=4602) POCT-BLOOD GASES, [id number] 01:50:00 Test Item Value Reference Range Comments TEMP, CELSIUS-POC (BEAKER) 37.0 (test efgs=0347) FIO2-POC (BEAKER) (test TESTED AT [address] uqpl=6207) [place] [address] PH, ARTERIAL-POC (BEAKER) 7.396 7.350-7.450 (test ehjl=1796) PCO2, ARTERIAL-POC (BEAKER) 35.3 mm Hg 35.0-45.0 (test fjos=7581) PO2, ARTERIAL-POC (BEAKER) 104.0 mm Hg 80.0-90.0 (test dvbq=1908) SO2, ARTERIAL-POC (BEAKER) 98.0 % 96.0-97.0 (test iqnc=5749) HCO3, ARTERIAL-POC (BEAKER) 21.7 meq/L 21.0-29.0 (test ynlz=5890) BASE EXCESS, ARTERIAL-POC -3.0 meq/L -2.0-3.0 (BEAKER) (test yjfd=1856) [id number] 01:50:00 Test Item Value Reference Range Comments POC-SODIUM (BEAKER) (test 140 meq/L 135-148 TESTED AT [address] meqq=8588) [place] [address] [id number] 01:50:00 Test Item Value Reference Range Comments POC-POTASSIUM (BEAKER) (test 3.4 meq/L 3.6-5.5 [address] i[address]99[address] [place] [address] [id number] 01:50:00 Test Item Value Reference Range Comments POC-GLUCOSE (BEAKER) (test 105 mg/dL 70-110 TESTED AT [address] wnqx=8648) [place] [address] POCT-CALCIUM [id number] 01:50:00 Test Item Value Reference Range Comments POC-CALCIUM IONIZED (BEAKER) 1.15 mmol/L 1.12-1.27 TESTED AT [address] (test tkus=5317) [place] [address] [id number] 01:50:00 Test Item Value Reference Range Comments POC-HEMATOCRIT (BEAKER) (test 35 % 40-50 TESTED AT [address] mmut=2241) [place] [address] [id number] 01:50:00 Test Item Value Reference Range Comments POC-HEMOGLOBIN (BEAKER) 11.9 g/dL 13.0-16.8 TESTED AT [address] (test jheo=2611) [place] [address]TESTED AT [place] [address] POCT-LACTIC ACID, [id number] 01:49:00 Test Item Value Reference Range Comments POC-LACTIC ACID, ARTERIAL 0.9 mmol/L 0.4-1.3 TESTED AT [address] ([facility]) (test uqkc=7330) [place] [address]
[2018-10-02] MEDS ORDERED: NA CHLORIDE 0.9% 1,000 ML ONE (21:50)
[2018-10-02 21:58] LABS: Absolute Lymphocytes (CBC) 2.1 K/uL (0.7-4.9); Absolute Neutrophil 4.8 K/uL (1.8-8.0); Basophils % 0.7 % (0-1.3); Eosinophils % 0.3 % (0-4.4); Hematocrit 40.9 % (39.6-49.0); Lymphocytes % 26.6 % (15.3-44.8); MCH 30.3 pg (27.0-35.0); MCV 90.1 fL (80-100); Monocytes % 12.1 % (3.3-12.3); RBC Red Blood Cell Count 4.54 M/uL (4.33-5.43)
[2018-10-02 22:17] LABS: Phenytoin (Dilantin) Level 4.4 ug/mL (10.0-20.0); Potassium 3.8 mmol/L (3.5-5.1)
[2018-10-02] MEDS ORDERED: NA CHLORIDE 0.9% 100 ML IV ONE (22:35)
[2018-10-02] MEDS ORDERED: FOSPHENYTOIN PE 500 MG/10 ML VIAL ONE (22:36)
[2018-10-02] MEDS ORDERED: DIAZEPAM 10 MG/2 ML INJ SYRINGE ONE (22:45)
[2018-10-02] MEDS ORDERED: PROMETHAZINE 25 MG/ML VIAL ONE (23:01)
--- NOTE | 2018-10-02 23:53 | EDPHYS ---
Physician Documentation [facility] Name: Alfie Zavala Age: 28 yrs Sex: Male : 1990 Arrival Date: 10/02/2018 Time: 21:02 Bed 14 Private MD: Lanette Buckner H ED Physician Blue Rodriguez HPI: 10/02 22:00 This 28 yrs old Male presents to ER via Wheelchair with complaints of Seizure, snw history of. 22:00 The patient presents after having a single isolated seizure, the episode(s) was snw witnessed, by a friend. Character of seizure(s): Motor activity: generalized, shaking all over. Seizure onset: just prior to arrival. Context: the seizure(s) was witnessed, by a friend. Seizure Hx: Last seizure: The patient's last seizure was approximately 1 month(s) ago. Current symptoms: Currently, the patient is not experiencing any symptoms. The patient has experienced similar episodes in the past, chronically. pt states he missed a couple of his dilantin doses. Historical: - Allergies: 21:11 Ativan; la1 - Home Meds: 21:22 fluoxetine 40 mg Oral cap 1 cap once daily [Active]; Phenytoin 100 mg Oral 2 tabs 3 fc times per day [Active]; topiramate 50 mg oral CSpX 1 cap twice a day [Active]; lamotrigine 200 mg Oral tab 2 tabs once daily [Active]; Tegretol 200 mg Oral tab 1 tab every 12 hours [Active]; sumatriptan oral 50 mg as needed [Active]; - PMHx: 21:11 Depression; Headaches; Seizures; la1 - PSHx: 21:22 Appendectomy; fc - Immunization history:: Adult Immunizations up to date. - Social history:: Smoking status: Patient/guardian denies using tobacco. - Ebola Screening: : No symptoms or risks identified at this time. ROS: 21:58 Constitutional: Negative for fever, chills, and weight loss, Eyes: Negative for injury, snw pain, redness, and discharge, ENT: Negative for injury, pain, and discharge, Neck: Negative for injury, pain, and swelling, Cardiovascular: Negative for chest pain, palpitations, and edema, Respiratory: Negative for shortness of breath, cough, wheezing, and pleuritic chest pain, Abdomen/GI: Negative for abdominal pain, nausea, vomiting, diarrhea, and constipation, Back: Negative for injury and pain, : Negative for injury, bleeding, discharge, and swelling, MS/Extremity: Negative for injury and deformity, Skin: Negative for injury, rash, and discoloration, Psych: Negative for depression, anxiety, suicide ideation, homicidal ideation, and hallucinations. 21:58 Neuro: Positive for seizure activity. Exam: 21:58 Constitutional: This is a well developed, well nourished patient who is awake, alert, snw and in no acute distress. Head/Face: Normocephalic, atraumatic. Eyes: Pupils equal round and reactive to light, extra-ocular motions intact. Lids and lashes normal. Conjunctiva and sclera are non-icteric and not injected. Cornea within normal limits. Periorbital areas with no swelling, redness, or edema. ENT: Nares patent. No nasal discharge, no septal abnormalities noted. Tympanic membranes are normal and external auditory canals are clear. Oropharynx with no redness, swelling, or masses, exudates, or evidence of obstruction, uvula midline. Mucous membranes moist. Neck: Trachea midline, no thyromegaly or masses palpated, and no cervical lymphadenopathy. Supple, full range of motion without nuchal rigidity, or vertebral point tenderness. No Meningismus. Chest/axilla: Normal chest wall appearance and motion. Nontender with no deformity. No lesions are appreciated. Cardiovascular: Regular rate and rhythm with a normal S1 and S2. No gallops, murmurs, or rubs. Normal PMI, no JVD. No pulse deficits. Respiratory: Lungs have equal breath sounds bilaterally, clear to auscultation and percussion. No rales, rhonchi or wheezes noted. No increased work of breathing, no retractions or nasal flaring. Abdomen/GI: Soft, non-tender, with normal bowel sounds. No distension or tympany. No guarding or rebound. No evidence of tenderness throughout. Back: No spinal tenderness. No costovertebral tenderness. Full range of motion. Skin: Warm, dry with normal turgor. Normal color with no rashes, no lesions, and no evidence of cellulitis. MS/ Extremity: Pulses equal, no cyanosis. Neurovascular intact. Full, normal range of motion. Neuro: Awake and alert, GCS 15, oriented to person, place, time, and situation. Cranial nerves II-XII grossly intact. Motor strength 5/5 in all extremities. Sensory grossly intact. Cerebellar exam normal. Normal gait. Psych: Awake, alert, with orientation to person, place and time. Behavior, mood, and affect are within normal limits. Vital Signs: 21:12 BP 127 / 90; Pulse 87; Resp 16; Temp 98.4; Pulse Ox 98% on R/A; la1 22:45 BP 108 / 72; Pulse 104; Resp 16; Pulse Ox 99% on R/A; jb4 23:52 BP 104 / 69; Pulse 80; Resp 16; Pulse Ox 99% on R/A; jb4 [place] Coma Score: 23:40 Eye Response: spontaneous(4). Verbal Response: oriented(5). Motor Response: obeys jb4 commands(6). Total: 15. MDM: 21:28 Patient medically screened. snw 22:36 Data reviewed: vital signs, nurses notes. Data interpreted: Pulse oximetry: on room air snw is 98 %. Interpretation: normal. Counseling: I had a detailed discussion with the patient and/or guardian regarding: the historical points, exam findings, and any diagnostic results supporting the discharge/admit diagnosis, the presence of at least one elevated blood pressure reading (>120/80) during this emergency department visit, lab results. 10/02 21:28 Order name: Dilantin; Complete Time: 22:20 snw 10/02 21:28 Order name: Chem 7; Complete Time: 22:20 snw 10/02 21:28 Order name: CBC with Diff; Complete Time: 22:16 snw 10/02 21:38 Order name: Tegretol Level; Complete Time: 22:25 snw Administered Medications: 21:47 Drug: NS 0.9% 1000 ml Route: IV; Rate: 125 ml/hr; Site: left hand; jb4 10/03 00:15 Follow up: Response: No adverse reaction; IV Status: Completed infusion 4 10/02 22:40 Drug: Valium 10 mg Route: IVP; Site: left forearm; kr2 23:03 Follow up: Response: No adverse reaction jb4 22:45 Drug: Fosphenytoin 1 grams Route: IVPB; Site: left hand; jb4 23:15 Follow up: Response: No adverse reaction; IV Status: Completed infusion jb4 22:59 Drug: Phenergan 6.25 mg Route: IVP; Site: left hand; jb4 10/03 00:17 Follow up: Response: No adverse reaction; Nausea is decreased jb4 Disposition: 07:06 Co-signature as Attending Physician, Blue Rodriguez MD I agree with the assessment and dominik plan of care. Disposition: 10/02/18 23:52 Discharged to Home. Impression: Epileptic seizures related to external causes, not intractable, Patient's unintentional underdosing of medication regimen. - Condition is Stable. - Discharge Instructions: Seizure, Adult. - Medication Reconciliation Form, Thank You Letter, Antibiotic Education, Prescription Opioid Use form. - Follow up: Lanette Buckner; When: 1 - 2 days; Reason: Recheck today's complaints, Continuance of care, Re-evaluation by your physician. Follow up: Emergency Department; When: As needed; Reason: Worsening of condition. Signatures: Dispatcher [employer] EDNM Blue Rodriguez MD MD cha Therrien, Shelly, DRAW IN HAND-C DRAW IN HAND-Csnw Cristiane Jeronimo RN RN Aayush Ruiz RN RN la1 Mitchel Lopez RN RN jb4 Clari Huff RN RN kr2 Corrections: (The following items were deleted from the chart) 00:20 10/02 23:52 10/02/2018 23:52 Discharged to Home. Impression: Epileptic seizures related jb4 to external causes, not intractable; Patient's unintentional underdosing of medication regimen. Condition is Stable. Discharge Instructions: Seizure, Adult. Forms are Medication Reconciliation Form, Thank You Letter, Antibiotic Education, Prescription Opioid Use. Follow up: Laentte Buckner; When: 1 - 2 days; Reason: Recheck today's complaints, Continuance of care, Re-evaluation by your physician. Follow up: Emergency Department; When: As needed; Reason: Worsening of condition. snw
--- NOTE | 2018-10-02 23:53 | ER ---
Nurse's Notes [facility] Name: Alfie Zavala Age: 28 yrs Sex: Male : 1990 Arrival Date: 10/02/2018 Time: 21:02 Bed 14 Private MD: Lanette Buckner H Diagnosis: Epileptic seizures related to external causes, not intractable;Patient's unintentional underdosing of medication regimen Presentation: 10/02 21:11 Presenting complaint: Patient states: I had a couple seizures today, at least two. pr la1 reports hx of seizures. Transition of care: patient was not received from another setting of care. Onset of symptoms was October 02, 2018. Risk Assessment: Do you want to hurt yourself or someone else? Patient reports no desire to harm self or others. Initial Sepsis Screen: Does the patient meet any 2 criteria? No. Patient's initial sepsis screen is negative. Does the patient have a suspected source of infection? No. Patient's initial sepsis screen is negative. Care prior to arrival: None. 21:11 Method Of Arrival: Wheelchair la1 21:11 Acuity: KEN 3 la1 Historical: - Allergies: 21:11 Ativan; la1 - Home Meds: 21:22 fluoxetine 40 mg Oral cap 1 cap once daily [Active]; Phenytoin 100 mg Oral 2 tabs 3 fc times per day [Active]; topiramate 50 mg oral CSpX 1 cap twice a day [Active]; lamotrigine 200 mg Oral tab 2 tabs once daily [Active]; Tegretol 200 mg Oral tab 1 tab every 12 hours [Active]; sumatriptan oral 50 mg as needed [Active]; - PMHx: 21:11 Depression; Headaches; Seizures; la1 - PSHx: 21:22 Appendectomy; fc - Immunization history:: Adult Immunizations up to date. - Social history:: Smoking status: Patient/guardian denies using tobacco. - Ebola Screening: : No symptoms or risks identified at this time. Screenin:22 Abuse screen: Denies threats or abuse. Nutritional screening: No deficits noted. fc Tuberculosis screening: No symptoms or risk factors identified. Fall Risk Fall in past 12 months (25 points). Secondary diagnosis (15 points) seizures, No IV (0 pts). Ambulatory Aid- None/Bed Rest/Nurse Assist (0 pts). Gait- Normal/Bed Rest/Wheelchair (0 pts) Mental Status- Overestimates/Forgets Limitations (15 pts.). Total Adams Fall Scale indicates Low Risk Score (25-44 pts). Fall prevention measures have been instituted. Side Rails Up X 2 Placed close to Nursing Station Frequent Obs/Assesments occuring As available Patient and Family Educated on Fall Prevention Program and strategies. Assessment: 21:35 General: Appears in no apparent distress. uncomfortable, Behavior is calm, cooperative, jb4 appropriate for age. Pain: Complains of pain in headache. Pain does not radiate. Pain currently is 9 out of 10 on a pain scale. Quality of pain is described as stabbing. Neuro: Level of Consciousness is awake, alert, obeys commands, Oriented to person, place, time, situation. Cardiovascular: Capillary refill < 3 seconds in bilateral fingers Patient's skin is warm and dry. Respiratory: Airway is patent Respiratory effort is even, unlabored, Respiratory pattern is regular, symmetrical. GI: No signs and/or symptoms were reported involving the gastrointestinal system. : No signs and/or symptoms were reported regarding the genitourinary system. EENT: No signs and/or symptoms were reported regarding the EENT system. Derm: Skin is intact, Skin is pink, warm \T\ dry. Musculoskeletal: Circulation, motion, and sensation intact. 22:43 Reassessment: Pt is seizing. Provider notified see [facility] for orders. jb4 22:46 Reassessment: Patient appears in no apparent distress at this time. Patient and/or jb4 family updated on plan of care and expected duration. Pain level reassessed. Patient is alert, oriented x 3, equal unlabored respirations, skin warm/dry/pink. 23:52 Reassessment: Patient appears in no apparent distress at this time. Patient and/or jb4 family updated on plan of care and expected duration. Pain level reassessed. respirations even and unlabored, pt is resting with eyes closed, no S/S of distress noted. Vital Signs: 21:12 BP 127 / 90; Pulse 87; Resp 16; Temp 98.4; Pulse Ox 98% on R/A; la1 22:45 BP 108 / 72; Pulse 104; Resp 16; Pulse Ox 99% on R/A; jb4 23:52 BP 104 / 69; Pulse 80; Resp 16; Pulse Ox 99% on R/A; jb4 [place] Coma Score: 23:40 Eye Response: spontaneous(4). Verbal Response: oriented(5). Motor Response: obeys jb4 commands(6). Total: 15. ED Course: 21:02 Patient arrived in ED. es 21:03 Lanette Buckner DO is Private Physician. es 21:11 Arm band placed on right wrist. la1 21:12 Triage completed. la1 21:22 Patient has correct armband on for positive identification. Placed in gown. Bed in low fc position. Call light in reach. Side rails up X2. Seizure precautions initiated. Pulse ox on. NIBP on. 21:22 No provider procedures requiring assistance completed. fc 21:27 Christina Clemente FNP-C is PHCP. snw 21:27 Blue Rodriguez MD is Attending Physician. snw 21:35 Initial lab(s) drawn, by me, held in ED. Inserted saline lock: 22 gauge in left hand, jb4 using aseptic technique. Blood collected. Missed attempt(s): 20 gauge in right antecubital area. 21:40 Mitchel Lopez, ESCOBAR is Primary Nurse. jb4 23:52 Lanette Buckner DO is Referral Physician. snw 10/03 00:18 IV discontinued, intact, bleeding controlled. jb4 Administered Medications: 10/02 21:47 Drug: NS 0.9% 1000 ml Route: IV; Rate: 125 ml/hr; Site: left hand; jb4 10/03 00:15 Follow up: Response: No adverse reaction; IV Status: Completed infusion jb4 10/02 22:40 Drug: Valium 10 mg Route: IVP; Site: left forearm; kr2 23:03 Follow up: Response: No adverse reaction jb4 22:45 Drug: Fosphenytoin 1 grams Route: IVPB; Site: left hand; jb4 23:15 Follow up: Response: No adverse reaction; IV Status: Completed infusion jb4 22:59 Drug: Phenergan 6.25 mg Route: IVP; Site: left hand; jb4 10/03 00:17 Follow up: Response: No adverse reaction; Nausea is decreased jb4 Outcome: 10/02 23:52 Discharge ordered by MD. bruno 10/03 00:18 Discharged to home with family. jb4 Condition: stable Discharge instructions given to patient, family, Instructed on discharge instructions, follow up and referral plans. Demonstrated understanding of instructions, follow-up care. 00:20 Patient left the ED. jb4 Signatures: Christina Clemente, METEOROLOGY PROFESSOR-C METEOROLOGY PROFESSOR-Csnw Keiko Addison Felicia RN RN Aayush Ruiz RN RN la1 Mitchel Lopez RN RN jb4 Clari Huff RN RN kr2 Corrections: (The following items were deleted from the chart) 10/02 22:47 22:40 Reassessment: Pt is seizing. Provider notified see [facility] for orders. jb4 jb4
[2018-10-03 00:59] VITALS: TEMP 98.4
[2018-10-03 01:04] VITALS: BP 104/69; O2SAT 99
== END 2018-10-03 00:20 | disposition home or self-care (01) ==
LOC: ER 20:59
DX: G40.509 Epileptic seizures related to external causes, not intractable, without status epilepticus (principal); Z91.138 Patient's unintentional underdosing of medication regimen for other reason; F32.9 Major depressive disorder, single episode, unspecified; Z79.899 Other long term (current) drug therapy
CPT/HCPCS: 36415; 80048; 80156; 80185; 85025; 99284; J2550; J3360; J7030; Q2009

== ENCOUNTER 2018-10-12 19:30 | Emergency (ER) | payer BC ==
[2018-10-12] MEDS ORDERED: SUCCINYLCHOLINE 20 MG/ML (10 ML) IV ONE (19:31)
[2018-10-12] MEDS ORDERED: ETOMIDATE 20 MG/10 ML VIAL IV ONE (19:31)
--- OUTSIDE RECORDS SUMMARY | 2018-10-12 19:32 | XMS REPORT | Clinical Summary ---
:1990 Author Organization [facility] Address [address] [place] [address] Care Team Providers Name Role Phone Andrew [...] 09/11/2018 Travel 09/10/2018 - Hospital General Internal [facility] Wolfe, Status epilepticus (HCC); 09/13/2018 Encounter Medicine [...] 08/10/2018 Orders Only General Internal Medicine after 10/11/2017 Immunizations Name Dates Previously Given Next Due [...] 390 ms QTC Calculation(Bazett) 417 ms P Whiteface 14 degrees R Whiteface 45 degrees T Whiteface 16 degrees Normal sinus rhythm Normal ECG [...] ARTERIAL Routine 08/10/2018 1:35 AM CDT after 10/11/2017 Results RHYTHM STRIP - SCAN (09/14/2018 1:00 PM CDT)Only the most recent of2 resultswithin the time period is included. Narrative Performed At XR chest 1 view portable / bedside (09/13/2018 3:47 AM CDT)Only the most recent of3 resultswithin the time period is included. Narrative Performed At FINAL REPORT [facility] HISTORY : post intubation. Comparison: 09/11/2018 [...] MD Report Verified Date/Time:09/13/2018 07:27:51 Reading Location: [facility] Radiology Reading Room Procedure Note Interface, External [...] Report Verified Date/Time: 09/13/2018 07:27:51 Reading Location: [facility] Radiology Reading Room Performing Organization Address City/State/Zipcode Phone Number [facility] CBC with platelet count + automated diff (09/13/2018 3:37 AM CDT)Only the most recent of4 resultswithin the time period is included. WBC 6.1 3.5 - 10.5 K/L [facility] RBC 3.85 (L) 4.63 - 6.08 M/L [facility] Hemoglobin 11.4 (L) 13.7 - 17.5 GM/DL [facility] Hematocrit 35.1 (L) 40.1 - 51.0 % [facility] MCV 91.2 79.0 - 92.2 fL [facility] MCH 29.6 25.7 - 32.2 pg [facility] MCHC 32.5 32.3 - 36.5 GM/DL [facility] RDW 13.7 11.6 - 14.4 % [facility] Platelets 162 150 - 450 K/CU MM [facility] MPV 10.4 9.4 - 12.4 fL [facility] nRBC 0 0 - 0 /100 WBC [facility] % Neutros 58 % [facility] % Lymphs 32 % [facility] % Monos 9 % [facility] % Eos 1 % [facility] % Baso 0 % [facility] # Neutros 3.54 1.78 - 5.38 K/L [facility] # Lymphs 1.93 1.32 - 3.57 K/L [facility] # Monos 0.52 0.30 - 0.82 K/L [facility] # Eos 0.07 0.04 - 0.54 K/L [facility] # Baso 0.02 0.01 - 0.08 K/L [facility] Immature Granulocytes-Relative 0 0 - 1 % [facility] Specimen Blood Performing Organization Address City/State/Zipcode Phone Number [facility] [address] [place] [address] CENTER Phosphorus (09/13/2018 3:37 AM CDT)Only the most recent of4 resultswithin the time period is included. Phosphorus 2.9 2.3 - 4.7 mg/dL [facility] Specimen Blood Narrative Performed At Check Serum Phosphorus level 4 hours after IV [facility] phosphorus replacement or 8 hours after PO replacement completed. Performing Organization Address City/State/Zipcode Phone Number [address] [address] CENTER Magnesium (09/13/2018 3:37 AM CDT)Only the most recent of6 resultswithin the time period is included. Magnesium 2.2 1.6 - 2.6 mg/dL [facility] Specimen Blood Narrative Performed At Check Serum Phosphorus level 4 hours after IV [facility] phosphorus replacement or 8 hours after PO replacement completed. Performing Organization Address [facility] Phone Number [address] [address] CENTER Basic Metabolic Panel (09/13/2018 3:37 AM CDT)Only the most recent of7 resultswithin the time period is included. Sodium 142 136 - 145 meq/L [facility] Potassium 3.6 3.5 - 5.1 meq/L [facility] Chloride 114 (H) 98 - 107 meq/L [facility] CO2 22 22 - 29 meq/L [facility] BUN 8 7 - 21 mg/dL [facility] Creatinine 0.68 0.57 - 1.25 mg/dL [facility] Glucose 109 (H) 70 - 105 mg/dL [facility] Calcium 8.4 8.4 - 10.2 mg/dL [facility] EGFR 137Comment: ESTIMATED GFR IS mL/min/1.73 sq m [facility] NOT ACCURATE [facility] CLEARANCE IN PREDICTING GLOMERULAR FILTRATION RATE. ESTIMATED GFR IS NOT APPLICABLE FOR DIALYSIS PATIENTS. Specimen Blood Narrative Performed At Check Serum Phosphorus level 4 hours after IV [facility] phosphorus replacement or 8 hours after PO replacement completed. Performing Organization Address City/State/[facility] Phone Number [address] [address] [place] Potassium (09/12/2018 6:02 PM CDT)Only the most recent of3 resultswithin the time period is included. Potassium 3.9 3.5 - 5.1 meq/L [facility] Specimen Blood - Arm, Left Narrative Performed At Check Serum Potassium level 2 hours after [facility] oral potassium replacement completed or 30 min after intravenous potassium replacement. Performing Organization Address [facility] Phone Number [address] [address] [phone] [place] Calcium, Ionized (09/12/2018 11:37 AM CDT) Calcium, Ion 1.09 (L) 1.12 - 1.27 mmol/L [facility] pH, Blood 7.46 [facility] Specimen Blood Narrative Performed At Check serum Ionized Calcium level after 4 [facility] hours after IV Calcium replacement. Performing Organization Address City/[facility] Phone Number [address] [phone] [place] EEG monitoring with video recording each 24 hours (09/12/2018 8:15 AM CDT) Narrative Performed At DATE OF REPORT: 09/12/2018 [facility] ACC: [id number] EE Start time: 09/11 at 0920 AM Stop time: 09/12 at 11:11 AM ICD-10: R56.9 CPT Code: 09509 HISTORY: 28 year old male p/w increased [...] Davis Cintron MD, PhD Attending Neurophysiologist [facility] Procedure Note Interface, External Ris In - 09/12/2018 2:34 PM CDT DATE OF REPORT: 09/12/2018 ACC: [id number] EE Start time: 09/11 at 0920 AM Stop time: 09/12 at 11:11 AM ICD-10: R56.9 CPT Code: 37969 HISTORY: 28 year old male p/w increased [...] Fellow Davis Cintron MD, PhD Attending Neurophysiologist [facility] Performing Organization Address City/State/Zipcode Phone Number [facility] POC-Glucose meter (09/11/2018 11:45 PM CDT)Only the most recent of4 resultswithin the time period is included. POC-Glucose Meter 94Comment: TESTED AT 70 - 110 mg/dL [address] [address] Specimen Blood Performing Organization Address [facility] Phone Number [address] [phone] CENTER EEG monitoring with video recording each 24 hours (09/11/2018 6:59 AM CDT) Narrative Performed At DATE OF REPORT: 09/11/2018 [facility] ACC: [id number] EE Start time: 09/10 at 15:05 Stop time: 09/11 at 09:20 AM ICD-10: R56.9 CPT Code: 45460 HISTORY: 28 yo male with h/o seizures [...] Joao Blum M.D., FLOR Professor of Neurology [facility] Director, [facility] Epilepsy [place], [facility] Procedure Note Interface, External Ris In - 09/11/2018 9:23 AM CDT DATE OF REPORT: 09/11/2018 ACC: [id number] EE Start time: 09/10 at 15:05 Stop time: 09/11 at 09:20 AM ICD-10: R56.9 CPT Code: 68287 HISTORY: 28 yo male with h/o seizures [...] Joao Blum M.D., FLOR Professor of Neurology [facility] [employer] Director, [facility] Epilepsy [place], [facility] Neurophysiology Lab Performing Organization Address City/State/[facility] Cent[facility]ode Phone Number [facility] Blood gas, arterial (09/11/2018 3:20 AM CDT)Only the most recent of2 resultswithin the time period is included. pH, Arterial 7.38 7.35 - 7.45 [facility] pCO2, Arterial 42 35 - 45 mmHg [facility] pO2, Arterial 120 (H) 80 - 90 mmHg [facility] O2 Sat, Arterial 98.3 (H) 96.0 - 97.0 % [facility] HCO3, Arterial 24 21 - 29 mmol/L [facility] Base Excess, Arterial -0.8 -2.0 - 3.0 mmol/L [facility] Patient Temperature 37.0 C [facility] FIO2 40.0 % [facility] Specimen Blood, Arterial Performing Organization Address City/[facility] Cent[facility]ode Phone Number [place] [phone] [place] [address] [phone] CENTER Troponin I (09/10/2018 4:39 PM CDT)Only the most recent of2 resultswithin the time period is included. Troponin I <0.01 0.00 - 0.03 ng/mL [facility] Specimen Blood Narrative Performed At Troponin I (TnI) levels must be interpreted [facility] in the context of the presenting symptoms [...] disease, and persistent tachyarrhythmia. Performing Organization Address City/[facility]/Zipcode Phone Number [facility] [address] [place] [address] CENTER EEG AWAKE AND DROWSY (09/10/2018 3:06 PM CDT) Narrative Performed At DATE OF REPORT: 09/10/2018 RIS ACC: [id number] EE Start time: 14:47 Stop time: 15:04 ICD-10: R56.9 CPT Code: 32682 HISTORY: 28 yo male with h/o seizures [...] Joao Blum M.D., FLOR Professor of Neurology [facility] [employer] Director, [facility] Epilepsy Center Procedure Note Interface, External Ris In - 09/10/2018 3:50 PM CDT DATE OF REPORT: 09/10/2018 ACC: [id number] EE Start time: 14:47 Stop time: 15:04 ICD-10: R56.9 CPT Code: 68897 HISTORY: 28 yo male with h/o seizures [...] John MD Neurophysiology Fellow Joao Blum M.D., [facility] Professor of Neurology [facility] Director, [facility] Epilepsy [place] Performing Organization Address City/State/Zipcode Phone Number [place] XR abdomen / KUB 1 view (09/10/2018 11:58 AM CDT) Narrative Performed At FINAL REPORT [facility] AP abdomen, three images HISTORY: Feeding tube COMPARISON: 11/01/2015 IMPRESSION: Feeding tube present with tip in abdomen. Bowel gas pattern appears grossly nonobstructive. Signed: Edgardo Guzman MD Report Verified Date/Time:09/10/2018 12:12:56 Reading Location: [address] Consult Reading Room Procedure Note Interface, External Ris In - 09/10/2018 12:15 PM CDT FINAL REPORT AP abdomen, three images HISTORY: Feeding tube COMPARISON: 11/01/2015 IMPRESSION: Feeding tube present with tip in abdomen. Bowel gas pattern appears grossly nonobstructive. Signed: Edgardo Guzman MD Report Verified Date/Time: 09/10/2018 12:12:56 Reading Location: [facility] B1 [id number] Ortho Consult Reading Room Performing [...] the surrounding skin area. A triple lumen 7[place] catheter was introduced into the the [...] pending Procedure performed emergently. Dr. Chandler Wolfe, Personnel Consultant of Neurology Neurocritical Care and Vascular Neurology [facility]. Drug screen, urine, comprehensive (09/10/2018 10:20 AM CDT)Only the most recent of2 resultswithin the time period is included. Specimen Urine Narrative Performed At Blood culture #1 (09/10/2018 9:22 AM CDT)Only the most recent of2 resultswithin the time period is included. Result No growth in 5 days [facility] Specimen Blood - Central Venous Line Performing Organization Address City/[facility]/Zipcode Phone Number [address] [address] [phone] [place] Sputum Culture + Gram Stain (09/10/2018 9:21 AM CDT) Result 4+ Normal respiratory [facility] Gram Stain Result 1+ gram positive rods [facility] Gram Stain Result 1+ gram negative cocci [facility] Gram Stain Result 2+ gram positive cocci in [facility] chains [facility] [place] Gram Stain Result 1+ gram positive cocci in [facility] clusters [facility] Specimen Sputum - Endotracheal Performing Organization Address [facility] Phone Number [address] [address] [phone] [place] Urine culture (09/10/2018 8:44 AM CDT) Result No growth [facility] Specimen Urine - Urine, Muñoz Performing Organization Address [facility] Phone Number [address] [address] [phone] CENTER aPTT (09/10/2018 8:38 AM CDT) PTT 27.5 22.5 - 36.0 seconds [facility] Specimen Blood Performing Organization Address [facility] Phone Number [address] [address] CENTER Prothrombin time/INR (09/10/2018 8:38 AM CDT) Protime 14.6 11.7 - 14.7 seconds [facility] INR 1.1 <=5.9 [facility] Specimen Blood Narrative Performed At RECOMMENDED COUMADIN/WARFARIN INR THERAPY [facility] RANGES STANDARD DOSE: 2.0 - 3.0 Includes: PROPHYLAXIS for venous thrombosis, systemic embolization; TREATMENT for venous thrombosis and/or pulmonary embolus. HIGH RISK: Target INR is 2.5-3.5 for patients with mechanical heart valves. Performing Organization Address [facility] Cent[facility]ode Phone Number [address] [address] CENTER Platelet count (09/10/2018 8:38 AM CDT) Platelets 184 150 - 450 K/CU MM [facility] Specimen Blood Performing Organization Address City/[facility] Phone Number [address] [address] [phone] [place] Phenytoin level, total (09/10/2018 8:38 AM CDT) Phenytoin 10.8 10.0 - 20.0 ug/mL [facility] Specimen Blood Performing Organization Address [facility] Phone Number [address] [address] CENTER Carbamazepine level (09/10/2018 8:38 AM CDT)Only the most recent of2 resultswithin the time period is included. Carbamazepine Lvl 2.2 (L) 4.0 - 12.0 ug/mL [facility] Specimen Blood Performing Organization Address [facility] Phone Number [address] [address] [phone] [place] Creatine Kinase (CK) (08/13/2018 6:02 AM CDT)Only the most recent of4 resultswithin the time period is included. Total CK 1,709 (H) 29 - 200 U/L [facility] Specimen Blood - Arm, Right Performing Organization Address [facility] Phone Number [address] [address] CENTER EEG AWAKE AND DROWSY (08/10/2018 3:38 PM CDT) Narrative Performed At Neurophysiology Electroencephalogram Report GE RIS DATE OF REPORT: 08/10/18 Date(s) of Study: 08/10/2018 ACC: [id number] Start time: 1517 hrs Stop time: 1537 hrs ICD-10: R56.9 Unspecified Convulsions CPT Code: 46657 EEG: awake and drowsy <40 min HISTORY: [...] Shamir Najera MD, MS Clinical Neurophysiology/Epilepsy Attending [facility] Neurophysiology Service Procedure Note Interface, External Ris In - 08/10/2018 4:50 PM CDT Neurophysiology Electroencephalogram Report DATE OF REPORT: 08/10/18 Date(s) of Study: 08/10/2018 ACC: [id number] Start time: 1517 hrs Stop time: 1537 hrs ICD-10: R56.9 Unspecified Convulsions CPT Code: 30836 EEG: awake and drowsy <40 min HISTORY: [...] Shamir Najera MD, MS Clinical Neurophysiology/Epilepsy Attending [facility] Neurophysiology Service Performing Organization Address [facility] Phone Number [facility] ECG 12 lead (08/10/2018 4:35 AM CDT) Narrative Performed At Ventricular Rate 69 BPM GE MUSE Atrial Rate 69 BPM P-R Interval 132 ms QRS Duration 88 ms Q-T Interval 390 ms QTC Calculation(Bazett) 417 ms P Whiteface 14 degrees R Whiteface 45 degrees T Whiteface 16 degrees Normal sinus rhythm Normal ECG No previous ECGs available Confirmed by Javier LOPEZ BASANT ([id number]) on 08/10/2018 10:49:51 AM Procedure Note Interface, External Ris In - 08/10/2018 10:49 AM CDT Ventricular Rate 69 BPM Atrial Rate 69 BPM P-R Interval 132 ms QRS Duration 88 ms Q-T Interval 390 ms QTC Calculation(Bazett) 417 ms P Whiteface 14 degrees R Whiteface 45 degrees T Whiteface 16 degrees Normal sinus rhythm Normal ECG No previous ECGs available Confirmed by Javier LOPEZ BASANT ([id number]) on 08/10/2018 10:49:51 AM Performing Organization Address [facility] Phone Number [employer] Urinalysis w/ Microscopic (08/10/2018 4:29 AM CDT) Color, UA Yellow [facility] Clarity, UA Clear [facility] Specific Rachel, UA 1.011 1.001 - 1.035 [facility] pH, UA 7.0 5.0 - 8.0 [facility] Protein, UA Negative Negative [facility] Glucose, UA Negative Negative [facility] Ketones, UA Negative Negative [facility] Bilirubin, UA Negative Negative [facility] Blood, UA Negative Negative [facility] Nitrite, UA Negative Negative [facility] Leukocytes, UA Negative Negative [facility] Urobilinogen, UA 2.0 (H) 0.2 - 1.0 mg/dL [facility] RBC, UA <1 /HPF [facility] WBC, UA 0 /HPF [facility] Specimen Source [facility] Specimen Urine Performing Organization Address City/State/Zipcode Phone Number [address] [address] [place] C-Reactive Protein (08/10/2018 1:55 AM CDT) CRP 0.45 0.00 - 0.50 mg/dL [facility] Specimen Blood Performing Organization Address City/[facility]/Zipcode Phone Number [address] [address] [place] Lactic acid, venous, whole blood (08/10/2018 1:55 AM CDT) Lactate, Venous 1.0Comment: Specimen 0.5 - 2.2 mmol/L [facility] slightly hemolyzed [facility] Specimen Blood Narrative Performed At [facility] Effective 03/18/2016: Units/Reference Range Change New: 0.5-2.2 mmol/LPrevious: 5-20 mg/dL Performing Organization Address City/[facility]/Zipcode Phone Number [facility] [address] [place] [address] CENTER Lamotrigine level (08/10/2018 1:55 AM CDT) Lamotrigine 5.6 4.0 - 18.0 mcg/mL [facility] Comment: INCORPORATED This test was developed and its analytical performance characteristics have been determined by [facility]. It has not been cleared or approved by the US Food and Drug Administration. This assay has been validated pursuant to the CLIA regulations and is used for clinical purposes. Specimen Blood Narrative Performed At Performing Lab [facility] *[facility] [employer] [facility], [address] [place] [phone] Jhonny Stanley MD, PhD Performing Organization Address [facility] [place] [address] INCORPORATED [address] [facility] Hepatic function panel (08/10/2018 1:55 AM CDT) Protein, Total 6.5 6.0 - 8.3 gm/dL [facility] Albumin 3.9 3.5 - 5.0 g/dL [facility] Total Bilirubin 0.8 0.2 - 1.2 mg/dL [facility] Bilirubin, Direct 0.3 0.1 - 0.5 mg/dL [facility] Alkaline Phosphatase 85 40 - 150 U/L [facility] AST 43 (H) 5 - 34 U/L [facility] ALT 33 6 - 55 U/L [facility] Specimen Blood Performing Organization Address [facility]/Zipcode Phone Number [facility] [address] [place] [address] [phone] CENTER POCT-HEMATOCRIT (08/10/2018 1:41 AM CDT) POC-Hematocrit 35 (L)Comment: TESTED AT 40 - 50 % [address] [address] Specimen Blood Performing Organization Address City/[facility] Centercode Phone Number [address] [phone] CENTER POCT-HEMOGLOBIN (08/10/2018 1:41 AM CDT) POC-Hemoglobin 11.9 (L)Comment: TESTED AT 13.0 - 16.8 g/dL [address] [place] [address]AOJPNP AT [address] [address] Specimen Blood Performing Organization Address [facility] Phone Number [address] [phone] CENTER POCT-GLUCOSE (08/10/2018 1:41 AM CDT) POC-Glucose 105Comment: TESTED AT [facility] 70 - 110 mg/dL [address] [address] Specimen Blood Performing Organization Address [facility] Phone Number [address] [address] [place] POC-Sodium (08/10/2018 1:41 AM CDT) POC-Sodium 140Comment: TESTED AT [facility] 135 - 148 meq/L [address] [address] Specimen Blood Performing Organization Address City/[facility] Centercode Phone Number [address] [address] CENTER POC-Potassium (08/10/2018 1:41 AM CDT) POC-Potassium 3.4 (L)Comment: TESTED AT 3.6 - 5.5 meq/L [address] [address] Specimen Blood Performing Organization Address City/[facility] Centercode Phone Number [address] [address] [place] POC-Calcium ionized (08/10/2018 1:41 AM CDT) POC-Calcium Ionized 1.15Comment: TESTED AT 1.12 - 1.27 mmol/L [address] [address] Specimen Blood Performing Organization Address [facility] Centercode Phone Number [address] [address] [place] POC-Blood gases, arterial (08/10/2018 1:41 AM CDT) Temp. Celsius-POC 37.0 [facility] FIO2-POC Comment: TESTED AT [address] [address] pH, Arterial-POC 7.396 7.350 - 7.450 [facility] PCO2, Arterial-POC 35.3 35.0 - 45.0 mm Hg [facility] PO2, Arterial-POC 104.0 (H) 80.0 - 90.0 mm Hg [facility] SO2, Arterial-POC 98.0 (H) 96.0 - 97.0 % [facility] HCO3, Arterilal-POC 21.7 21.0 - 29.0 meq/L [facility] BE, Arterial-POC -3.0 (L) -2.0 - 3.0 meq/L [facility] Specimen Blood Performing Organization Address City/[facility] Centercode Phone Number [address] [address] [place] POC-Lactic Acid, Arterial (08/10/2018 1:35 AM CDT) POC-Lactic Acid, 0.9Comment: TESTED AT 0.4 - 1.3 mmol/L [facility] Arterial [address] [address] Specimen Blood Performing Organization Address City/[facility] Centercode Phone Number [facility] [address] [place] [address] CENTER after 10/11/2017 Insurance Payer Benefit Plan / Subscriber ID Type Phone Address Group BLUE CROSS/BLUE BCBS PPO POS EPO xxxxxxxxxxxx PPO [phone] [address] [place] [address] Advance Directives For more information, please contact:[facility] [place], [place] [phone] Code Status Date Activated Date Inactivated Comments Full Code 09/10/2018 7:22 AM This code status was determined by: Patient Full Code 08/10/2018 1:35 AM 08/13/2018 8:26 PM This code status was determined by: Patient
--- OUTSIDE RECORDS SUMMARY | 2018-10-12 19:33 | XMS REPORT ---
:1990 [facility] [address] [place] [address] Care Team Providers Name Role Phone CARSON [...] Value Reference Range Comments CULTURE (BEAKER) (test gexd=1368) No growth in 5 days BLOOD [id number] 18:00:00 Test Item Value Reference Range Comments CULTURE (BEAKER) (test ozhv=0340) No growth in 5 days SPUTUM CULTURE + GRAM [id number] 14:21:00 Test Item Value Reference Range Comments CULTURE (BEAKER) (test 4+ Normal respiratory beatrice vbqo=2165) present GRAM STAIN RESULT (BEAKER) 1+ gram positive rods (test umkt=3869) GRAM STAIN RESULT (BEAKER) 1+ gram negative cocci (test saey=98093) GRAM STAIN RESULT (BEAKER) 2+ gram positive cocci in chains (test vyrg=02879) GRAM STAIN RESULT (BEAKER) 1+ gram positive cocci in (test gwkk=144135) clusters RAD, CHEST, 1 VIEW, NON [id number] 07:27:00Reason for exam:->post intubationShould this be performed [...] Verified Date/Time: 09/13/2018 07:27 :51 Reading Location: [facility] Radiology Reading Room [id number] 04:44:00 Test Item Value Reference Range Comments PHOSPHORUS (BEAKER) (test eqte=573) 2.9 mg/dL 2.3-4.7 Check Serum Phosphorus level 4 hours after IV phosphorus replacement or 8 hours after PO replacementcompleted.[id number] 04:44:00 Test Item Value Reference Range Comments MAGNESIUM (BEAKER) (test oztw=180) 2.2 mg/dL 1.6-2.6 Check Serum Phosphorus level 4 hours after IV phosphorus replacement or 8 hours after PO replacementcompleted.BASIC METABOLIC [id number] 04:44:00 Test Item Value Reference Range Comments SODIUM (BEAKER) (test 142 meq/L 136-145 krlh=167) POTASSIUM (BEAKER) (test 3.6 meq/L 3.5-5.1 bpbc=910) CHLORIDE (BEAKER) (test 114 meq/L 98-107 idpt=697) CO2 (BEAKER) (test 22 meq/L 22-29 ycuw=003) BLOOD UREA NITROGEN 8 mg/dL 7-21 (BEAKER) (test kdzi=536) CREATININE (BEAKER) (test 0.68 mg/dL 0.57-1.25 cpcm=093) GLUCOSE RANDOM (BEAKER) 109 mg/dL 70-105 (test mwdi=488) CALCIUM (BEAKER) (test 8.4 mg/dL 8.4-10.2 vfxk=329) EGFR (BEAKER) (test 137 mL/min/1.73 sq m ESTIMATED GFR IS NOT vmeb=7332) ACCURATE CREATININE CLEARANCE IN PREDICTING GLOMERULAR FILTRATION RATE. ESTIMATED GFR IS NOT APPLICABLE FOR DIALYSIS PATIENTS. Check Serum Phosphorus level 4 hours after IV phosphorus replacement or 8 hours after PO replacementcompleted.CBC W/PLT COUNT & AUTO [id number] 04:19:00 Test Item Value Reference Range Comments WHITE BLOOD CELL COUNT (BEAKER) (test bjdv=864) 6.1 K/ L 3.5-10.5 RED BLOOD CELL COUNT (BEAKER) (test mskl=007) 3.85 M/ L 4.63-6.08 HEMOGLOBIN (BEAKER) (test owmf=669) 11.4 GM/DL 13.7-17.5 HEMATOCRIT (BEAKER) (test pzzh=147) 35.1 % 40.1-51.0 MEAN CORPUSCULAR VOLUME (BEAKER) (test ubbe=780) 91.2 fL 79.0-92.2 MEAN CORPUSCULAR HEMOGLOBIN (BEAKER) (test 29.6 pg 25.7-32.2 qxyq=110) MEAN CORPUSCULAR HEMOGLOBIN CONC (BEAKER) (test 32.5 GM/DL 32.3-36.5 xacw=800) RED CELL DISTRIBUTION WIDTH (BEAKER) (test 13.7 % 11.6-14.4 bddm=513) PLATELET COUNT (BEAKER) (test gnpx=632) 162 K/CU MM 150-450 MEAN PLATELET VOLUME (BEAKER) (test yrzc=399) 10.4 fL 9.4-12.4 NUCLEATED RED BLOOD CELLS (BEAKER) (test 0 /100 WBC 0-0 ddwp=803) NEUTROPHILS RELATIVE PERCENT (BEAKER) (test 58 % lkwr=234) LYMPHOCYTES RELATIVE PERCENT (BEAKER) (test 32 % uwtj=694) MONOCYTES RELATIVE PERCENT (BEAKER) (test 9 % yins=171) EOSINOPHILS RELATIVE PERCENT (BEAKER) (test 1 % kpvn=559) BASOPHILS RELATIVE PERCENT (BEAKER) (test 0 % ehcx=589) NEUTROPHILS ABSOLUTE COUNT (BEAKER) (test 3.54 K/ L 1.78-5.38 hwjy=400) LYMPHOCYTES ABSOLUTE COUNT (BEAKER) (test 1.93 K/ L 1.32-3.57 wvlp=401) MONOCYTES ABSOLUTE COUNT (BEAKER) (test 0.52 K/ L 0.30-0.82 crqj=792) EOSINOPHILS ABSOLUTE COUNT (BEAKER) (test 0.07 K/ L 0.04-0.54 azny=968) BASOPHILS ABSOLUTE COUNT (BEAKER) (test 0.02 K/ L 0.01-0.08 jbat=191) IMMATURE GRANULOCYTES-RELATIVE PERCENT (BEAKER) 0 % 0-1 (test yyuv=8438) [id number] 18:41:00 Test Item Value Reference Range Comments POTASSIUM (MAXIMINO) (test zaep=638) 3.9 meq/L 3.5-5.1 Check Serum Potassium level 2 hours after oral potassium replacement completed or 30 min after intravenous potassium replacement.[id number] 18:41:00 Test Item Value Reference Range Comments MAGNESIUM (MAXIMINO) (test eysd=565) 2.9 mg/dL 1.6-2.6 Check Serum Potassium level 2 hours after oral potassium replacement completed or 30 min after intravenous potassium replacement.EEG MONITORING WITH VIDEO RECORDING EACH 24 [id number] 14:34:00billing for 09/12 AMDATE OF REPORT: ACC: [id number] Start time: 09/11 at 0920 AM Stop time: 09/12 at 11:11 AM ICD-10: R56.9 CPT Code: 36736 HISTORY: 28 year old male p/w increased [...] Fellow Davis Cintron MD, PhD Attending Neurophysiologist [facility] [place] [id number] 12:15:00 Test Item Value Reference Range Comments MAGNESIUM (BEAKER) (test btvr=245) 1.9 mg/dL 1.6-2.6 Check Serum Phosphorus level 4 hours after IV phosphorus replacement or 8 hours after PO replacementcompleted.Check Serum Potassium level 2 hours after oral potassium replacement completed or 30 min after intravenous potassium replacement.[id number] 12:15:00 Test Item Value Reference Range Comments PHOSPHORUS (BEAKER) (test bevn=583) 2.0 mg/dL 2.3-4.7 Check Serum Phosphorus level 4 hours after IV phosphorus replacement or 8 hours after PO replacementcompleted.Check Serum Potassium level 2 hours after oral potassium replacement completed or 30 min after intravenous potassium replacement.[id number] 12:14:00 Test Item Value Reference Range Comments POTASSIUM (BEAKER) (test fhpu=096) 3.6 meq/L 3.5-5.1 Check Serum Phosphorus level 4 hours after IV phosphorus replacement or 8 hours after PO replacementcompleted.Check Serum Potassium level 2 hours after oral potassium replacement completed or 30 min after intravenous potassium replacement.CALCIUM, [id number] 11:49:00 Test Item Value Reference Range Comments CALCIUM IONIZED (BEAKER) (test ltbz=749) 1.09 mmol/L 1.12-1.27 PH, BLOOD (BEAKER) (test xpod=0097) 7.46 Check serum Ionized Calcium level after 4 hours after IV Calcium replacement.URINE [id number] 08:18:00 Test Item Value Reference Range Comments CULTURE (BEAKER) (test kran=3328) No growth [id number] 03:59:00 Test Item Value Reference Range Comments PHOSPHORUS (BEAKER) (test sjay=274) 2.5 mg/dL 2.3-4.7 Check Serum Phosphorus level 4 hours after IV phosphorus replacement or 8 hours after PO replacementcompleted.[id number] 03:59:00 Test Item Value Reference Range Comments MAGNESIUM (BEAKER) (test paxs=094) 2.1 mg/dL 1.6-2.6 Check Serum Phosphorus level 4 hours after IV phosphorus replacement or 8 hours after PO replacementcompleted.BASIC METABOLIC [id number] 03:59:00 Test Item Value Reference Range Comments SODIUM (BEAKER) (test 143 meq/L 136-145 spvg=529) POTASSIUM (BEAKER) (test 3.3 meq/L 3.5-5.1 nxke=342) CHLORIDE (BEAKER) (test 112 meq/L 98-107 dcvs=373) CO2 (BEAKER) (test 25 meq/L 22-29 scgu=578) BLOOD UREA NITROGEN 5 mg/dL 7-21 (BEAKER) (test mstm=394) CREATININE (BEAKER) (test 0.65 mg/dL 0.57-1.25 nrdz=509) GLUCOSE RANDOM (BEAKER) 92 mg/dL 70-105 (test ogjq=130) CALCIUM (BEAKER) (test 8.4 mg/dL 8.4-10.2 ryxe=847) EGFR (BEAKER) (test 144 mL/min/1.73 sq m ESTIMATED GFR IS NOT bqiq=2816) ACCURATE CREATININE CLEARANCE IN PREDICTING GLOMERULAR FILTRATION RATE. ESTIMATED GFR IS NOT APPLICABLE FOR DIALYSIS PATIENTS. Check Serum Phosphorus level 4 hours after IV phosphorus replacement or 8 hours after PO replacementcompleted.CBC W/PLT COUNT & AUTO [id number] 03:41:00 Test Item Value Reference Range Comments WHITE BLOOD CELL COUNT (BEAKER) (test zqpn=895) 8.0 K/ L 3.5-10.5 RED BLOOD CELL COUNT (BEAKER) (test orth=600) 3.69 M/ L 4.63-6.08 HEMOGLOBIN (BEAKER) (test lpli=330) 11.0 GM/DL 13.7-17.5 HEMATOCRIT (BEAKER) (test hjld=267) 33.5 % 40.1-51.0 MEAN CORPUSCULAR VOLUME (BEAKER) (test ywxo=620) 90.8 fL 79.0-92.2 MEAN CORPUSCULAR HEMOGLOBIN (BEAKER) (test 29.8 pg 25.7-32.2 mklj=179) MEAN CORPUSCULAR HEMOGLOBIN CONC (BEAKER) (test 32.8 GM/DL 32.3-36.5 zlke=994) RED CELL DISTRIBUTION WIDTH (BEAKER) (test 13.5 % 11.6-14.4 mhku=657) PLATELET COUNT (BEAKER) (test ffcp=647) 153 K/CU MM 150-450 MEAN PLATELET VOLUME (BEAKER) (test ddfw=789) 10.5 fL 9.4-12.4 NUCLEATED RED BLOOD CELLS (BEAKER) (test 0 /100 WBC 0-0 pbkh=953) NEUTROPHILS RELATIVE PERCENT (BEAKER) (test 62 % xckf=343) LYMPHOCYTES RELATIVE PERCENT (BEAKER) (test 29 % nbzb=509) MONOCYTES RELATIVE PERCENT (BEAKER) (test 8 % gipx=910) EOSINOPHILS RELATIVE PERCENT (BEAKER) (test 1 % lezd=113) BASOPHILS RELATIVE PERCENT (BEAKER) (test 0 % uwwl=623) NEUTROPHILS ABSOLUTE COUNT (BEAKER) (test 4.92 K/ L 1.78-5.38 sgfp=889) LYMPHOCYTES ABSOLUTE COUNT (BEAKER) (test 2.31 K/ L 1.32-3.57 ubjz=700) MONOCYTES ABSOLUTE COUNT (BEAKER) (test 0.65 K/ L 0.30-0.82 hzhe=384) EOSINOPHILS ABSOLUTE COUNT (BEAKER) (test 0.06 K/ L 0.04-0.54 fmnw=112) BASOPHILS ABSOLUTE COUNT (BEAKER) (test 0.02 K/ L 0.01-0.08 apuv=671) IMMATURE GRANULOCYTES-RELATIVE PERCENT (BEAKER) 0 % 0-1 (test wrvy=8135) POCT-GLUCOSE [id number] 23:55:00 Test Item Value Reference Range Comments POC-GLUCOSE METER (BEAKER) 94 mg/dL 70-[address] [facility] [address] [place] [address] (test mzfw=0150) [facility] [address] [id number] 18:08:00 Test Item Value Reference Range Comments POTASSIUM (BEAKER) (test djbc=953) 3.4 meq/L 3.5-5.1 Check Serum Potassium level 2 hours after oral potassium replacement completed or 30 min after intravenous potassium replacement.EEG MONITORING WITH VIDEO RECORDING EACH 24 [id number] 09:23:00DATE OF REPORT: 09/11/2018ACC: [id number]: Start time: 09/10 at 15:05Stop time: 09/11 at 09:20 AMICD-10 : R56.9CPT Code: 62791 HISTORY: 28 yo male with h/o seizures [...] MDNeurophysiology Fellow Joao Blum M.D., FACNSProfessor of NeurologyHerrick CampusDirector, [facility] Epilepsy [facility] Electronically signed by:JOAO BLUM on 2017 09:23 AMRAD, CHEST, 1 VIEW, NON [id number] 07:32:00Reason for exam:-&gt ;post intubationShould this be [...] is magnified by technique. Signed: Kody Vuong [facility] Verified Date/Time: 09/11/2018 07:32: 46 Reading Location: [facility] B1 C013V Neuro Reading Room POCT-GLUCOSE [id number] 06: 30:00 Test Item Value Reference Range Comments POC-GLUCOSE METER (BEAKER) 111 mg/dL 70-[address] [facility] [address] [facility] (test jqmg=3706) [facility] [address] BASIC METABOLIC [id number] 06:06:00 Test Item Value Reference Range Comments SODIUM (BEAKER) (test 138 meq/L 136-145 uogc=370) POTASSIUM (BEAKER) (test 3.4 meq/L 3.5-5.1 leuv=879) CHLORIDE (BEAKER) (test 110 meq/L 98-107 fpfh=614) CO2 (BEAKER) (test 20 meq/L 22-29 opwt=224) BLOOD UREA NITROGEN 8 mg/dL 7-21 (BEAKER) (test akhi=795) CREATININE (BEAKER) (test 0.70 mg/dL 0.57-1.25 anic=443) GLUCOSE RANDOM (BEAKER) 107 mg/dL 70-105 (test hejg=318) CALCIUM (BEAKER) (test 8.4 mg/dL 8.4-10.2 ahsl=914) EGFR (BEAKER) (test 132 mL/min/1.73 sq m ESTIMATED GFR IS NOT farg=1502) ACCURATE CREATININE CLEARANCE IN PREDICTING GLOMERULAR FILTRATION RATE. ESTIMATED GFR IS NOT APPLICABLE FOR DIALYSIS PATIENTS. CBC W/PLT COUNT & AUTO [id number] 03:47:00 Test Item Value Reference Range Comments WHITE BLOOD CELL COUNT (BEAKER) (test jaod=637) 7.9 K/ L 3.5-10.5 RED BLOOD CELL COUNT (BEAKER) (test zfvr=764) 3.85 M/ L 4.63-6.08 HEMOGLOBIN (BEAKER) (test kmot=305) 11.4 GM/DL 13.7-17.5 HEMATOCRIT (BEAKER) (test ubsa=202) 34.7 % 40.1-51.0 MEAN CORPUSCULAR VOLUME (BEAKER) (test shyr=487) 90.1 fL 79.0-92.2 MEAN CORPUSCULAR HEMOGLOBIN (BEAKER) (test 29.6 pg 25.7-32.2 umtt=710) MEAN CORPUSCULAR HEMOGLOBIN CONC (BEAKER) (test 32.9 GM/DL 32.3-36.5 qhly=308) RED CELL DISTRIBUTION WIDTH (BEAKER) (test 14.2 % 11.6-14.4 dwxx=538) PLATELET COUNT (BEAKER) (test lkrv=391) 163 K/CU MM 150-450 MEAN PLATELET VOLUME (BEAKER) (test svnm=836) 10.3 fL 9.4-12.4 NUCLEATED RED BLOOD CELLS (BEAKER) (test 0 /100 WBC 0-0 kckn=090) NEUTROPHILS RELATIVE PERCENT (BEAKER) (test 68 % jtgx=190) LYMPHOCYTES RELATIVE PERCENT (BEAKER) (test 23 % eugz=219) MONOCYTES RELATIVE PERCENT (BEAKER) (test 8 % jcdf=308) EOSINOPHILS RELATIVE PERCENT (BEAKER) (test 0 % okmx=663) BASOPHILS RELATIVE PERCENT (BEAKER) (test 0 % kdxg=271) NEUTROPHILS ABSOLUTE COUNT (BEAKER) (test 5.41 K/ L 1.78-5.38 vxdf=987) LYMPHOCYTES ABSOLUTE COUNT (BEAKER) (test 1.79 K/ L 1.32-3.57 gggt=393) MONOCYTES ABSOLUTE COUNT (BEAKER) (test 0.67 K/ L 0.30-0.82 xlpz=874) EOSINOPHILS ABSOLUTE COUNT (BEAKER) (test 0.02 K/ L 0.04-0.54 dlhz=673) BASOPHILS ABSOLUTE COUNT (BEAKER) (test 0.03 K/ L 0.01-0.08 crga=377) IMMATURE GRANULOCYTES-RELATIVE PERCENT (BEAKER) 0 % 0-1 (test ovmz=9448) BLOOD GAS, [id number] 03:32:00 Test Item Value Reference Range Comments PH ARTERIAL (BEAKER) (test rfii=063) 7.38 7.35-7.45 PCO2 ARTERIAL (BEAKER) (test fyfk=922) 42 mmHg 35-45 PO2 ARTERIAL (BEAKER) (test eerx=088) 120 mmHg 80-90 O2 SATURATION ARTERIAL (BEAKER) (test gsvu=062) 98.3 % 96.0-97.0 HCO3 ARTERIAL (BEAKER) (test ayyj=733) 24 mmol/L 21-29 BASE EXCESS ARTERIAL (BEAKER) (test ulrx=815) -0.8 mmol/L -2.0-3.0 PATIENT TEMPERATURE (BEAKER) (test lqic=5276) 37.0 C FIO2 (BEAKER) (test lgmy=7911) 40.0 % POCT-GLUCOSE [id number] 01:01:00 Test Item Value Reference Range Comments POC-GLUCOSE METER (BEAKER) 91 mg/dL 70-[address] [facility] [address] [facility] (test zyep=7428) [facility] [address] TROPONIN [id number] 17:18:00 Test Item Value Reference Range Comments TROPONIN I (BEAKER) (test mcdh=434) < ng/mL 0.00-0.03 Troponin I (TnI) levels [...] neurological disease, and persistent tachyarrhythmia.EEG AWAKE AND [id number] 15:50: 00Reason for exam:->Status epilepticus, c EEG for evaluation of subclinical seizures Should this beperformed at the bedside?->YesDATE OF REPORT: 2017ACC: [id number]: [id number] time: 14:47Stop time: 15:04ICD-10: R56.9CPTCode: 00084 HISTORY: 28 yo male with h/o seizures [...] MDNeurophysiology Fellow Joao Blum M.D., FACNSProfessor of NeurologyHerrick CampusDirector, [facility] Epilepsy [place] BLOOD GAS, [id number] 12:32:00 Test Item Value Reference Range Comments PH ARTERIAL (BEAKER) (test lksa=855) 7.37 7.35-7.45 PCO2 ARTERIAL (BEAKER) (test kgif=094) 38 mmHg 35-45 PO2 ARTERIAL (BEAKER) (test eezf=051) 208 mmHg 80-90 O2 SATURATION ARTERIAL (BEAKER) (test bkyq=006) 99.4 % 96.0-97.0 HCO3 ARTERIAL (BEAKER) (test hhss=440) 21 mmol/L 21-29 BASE EXCESS ARTERIAL (BEAKER) (test cgiw=902) -3.4 mmol/L -2.0-3.0 PATIENT TEMPERATURE (BEAKER) (test xkjb=6424) 37.1 C FIO2 (BEAKER) (test xcbe=7506) 40.0 % RAD, ABDOMEN/KUB, 1 VIEW [id number] 12:12:00Reason for exam:->corpakShould this be performed at the bedside?->YesFINAL REPORT AP abdomen, three images HISTORY: Feeding tube COMPARISON: 11/01/2015 IMPRESSION: Feeding tube present with tip in abdomen. Bowel gas pattern appears grossly nonobstructive. Signed: Edgardo Guzman MDReport Verified Date/Time: 2017 12:12:56 Reading Location: [address] Consult Reading Room RAD , CHEST, 1 VIEW, NON [id number] 10:40:00Reason for exam:->post intubationShould this be performed at the bedside?->YesFINAL REPORT AP chest HISTORY: Intubation COMPARISON: None IMPRESSION: Endotracheal tube in satisfactory position. Right IJ central venous catheter at mid SVC. Heart size normal. Mild perihilar atelectasis. Lungs otherwise clear. No pneumothorax. Signed: Edgardo Guzman MDReport Verified Date/Time: 2017 10:40:47 Reading Location: [facility] B1 C013X Ortho Consult Reading Room TROPONIN [id number] 09:21:00 Test Item Value Reference Range Comments TROPONIN I (BEAKER) (test kjqj=575) < ng/mL 0.00-0.03 Troponin I (TnI) levels [...] failure, acidosis, acute neurological disease, and persistent tachyarrhythmia.[id number] 09:19:00 Test Item Value Reference Range Comments CARBAMAZEPINE LEVEL (BEAKER) (test jeog=464) 2.2 ug/mL 4.0-12.0 PHENYTOIN LEVEL, [id number] 09:18:00 Test Item Value Reference Range Comments PHENYTOIN (DILANTIN) (BEAKER) (test odvx=703) 10.8 ug/mL 10.0-20.0 [id number] 09:03:00 Test Item Value Reference Range Comments PARTIAL THROMBOPLASTIN TIME (BEAKER) (test 27.5 seconds 22.5-36.0 fhzx=197) PROTHROMBIN TIME/[id number] 09:02:00 Test Item Value Reference Range Comments PROTIME (BEAKER) (test gafs=622) 14.6 seconds 11.7-14.7 INR (BEAKER) (test tgfk=254) 1.1 <=5.9 RECOMMENDED COUMADIN/WARFARIN INR THERAPY RANGESSTANDARD DOSE: 2.0 - 3.0 Includes: PROPHYLAXIS forvenous thrombosis, systemic embolization; TREATMENT for venous thrombosis and/or pulmonary embolus.HIGH RISK: Target INR is 2.5-3.5 for patients with mechanical heart valves.PLATELET [id number] 08:53:00 Test Item Value Reference Range Comments PLATELET COUNT (BEAKER) (test sggd=299) 184 K/CU MM 150-450 BASIC METABOLIC [id number] 07:07:00 Test Item Value Reference Range Comments SODIUM (BEAKER) (test 140 meq/L 136-145 weiv=733) POTASSIUM (BEAKER) (test 4.0 meq/L 3.5-5.1 hssn=351) CHLORIDE (BEAKER) (test 115 meq/L 98-107 mgtd=448) CO2 (BEAKER) (test 20 meq/L 22-29 sths=649) BLOOD UREA NITROGEN 7 mg/dL 7-21 (BEAKER) (test asil=953) CREATININE (BEAKER) (test 0.83 mg/dL 0.57-1.25 nkci=506) GLUCOSE RANDOM (BEAKER) 95 mg/dL 70-105 (test xjtc=750) CALCIUM (BEAKER) (test 8.6 mg/dL 8.4-10.2 mjbu=693) EGFR (BEAKER) (test 109 mL/min/1.73 sq m ESTIMATED GFR IS NOT shdi=8432) ACCURATE CREATININE CLEARANCE IN PREDICTING GLOMERULAR FILTRATION RATE. ESTIMATED GFR IS NOT APPLICABLE FOR DIALYSIS PATIENTS. CREATINE KINASE (CK)2018-08-13 07:07:00 Test Item Value Reference Range Comments CREATINE KINASE TOTAL (BEAKER) (test icfx=909) 1709 U/L 29-200 BASIC METABOLIC [id number] 05:19:00 Test Item Value Reference Range Comments SODIUM (BEAKER) (test 141 meq/L 136-145 ipcq=714) POTASSIUM (BEAKER) (test 4.1 meq/L 3.5-5.1 udpk=190) CHLORIDE (BEAKER) (test 117 meq/L 98-107 kmre=655) CO2 (BEAKER) (test 19 meq/L 22-29 azhr=207) BLOOD UREA NITROGEN 11 mg/dL 7-21 (BEAKER) (test vxys=723) CREATININE (BEAKER) (test 0.84 mg/dL 0.57-1.25 ibnf=600) GLUCOSE RANDOM (BEAKER) 97 mg/dL 70-105 (test suex=663) CALCIUM (BEAKER) (test 8.8 mg/dL 8.4-10.2 qkev=015) EGFR (BEAKER) (test 107 mL/min/1.73 sq m ESTIMATED GFR IS NOT kybd=3082) ACCURATE CREATININE CLEARANCE IN PREDICTING GLOMERULAR FILTRATION RATE. ESTIMATED GFR IS NOT APPLICABLE FOR DIALYSIS PATIENTS. CREATINE KINASE (CK)2018-08-12 05:19:00 Test Item Value Reference Range Comments CREATINE KINASE TOTAL (BEAKER) (test uwkl=847) 1766 U/L 29-200 POCT-GLUCOSE [id number] 17:02:00 Test Item Value Reference Range Comments POC-GLUCOSE METER (BEAKER) 93 mg/dL 70-[address] [facility] [address] [facility] (test ooga=9493) [facility] [address] [id number] 04:54:00 Test Item Value Reference Range Comments MAGNESIUM (BEAKER) (test gjpg=780) 2.1 mg/dL 1.6-2.6 BASIC METABOLIC [id number] 04:54:00 Test Item Value Reference Range Comments SODIUM (BEAKER) (test 142 meq/L 136-145 xkkb=528) POTASSIUM (BEAKER) (test 4.4 meq/L 3.5-5.1 hdal=492) CHLORIDE (BEAKER) (test 116 meq/L 98-107 gvgi=073) CO2 (BEAKER) (test 22 meq/L 22-29 aplw=342) BLOOD UREA NITROGEN 8 mg/dL 7-21 (BEAKER) (test qbzf=785) CREATININE (BEAKER) (test 0.84 mg/dL 0.57-1.25 kskz=695) GLUCOSE RANDOM (BEAKER) 88 mg/dL 70-105 (test izxy=902) CALCIUM (BEAKER) (test 9.0 mg/dL 8.4-10.2 kodo=380) EGFR (BEAKER) (test 107 mL/min/1.73 sq m ESTIMATED GFR IS NOT quqq=3913) ACCURATE CREATININE CLEARANCE IN PREDICTING GLOMERULAR FILTRATION RATE. ESTIMATED GFR IS NOT APPLICABLE FOR DIALYSIS PATIENTS. CREATINE KINASE (CK)2018-08-11 04:54:00 Test Item Value Reference Range Comments CREATINE KINASE TOTAL (BEAKER) (test wnfc=680) 2031 U/L 29-200 EEG AWAKE AND [id number] 16:50:00Reason for exam:->seizure disorderNeurophysiology Electroencephalogram Report DATE OF REPORT: 08/10/18Date( s) of Study: 08/10/2018ACC: [id number]: [id number] time: 1517 hrsStop time: 1537 hrsICD-10: R56.9 Unspecified ConvulsionsCPT Code: 12494 EEG: awake and drowsy <40 min HISTORY: [...] Najera MD, MSClinical Neurophysiology/Epilepsy Attending [facility] Neurophysiology Service URINALYSIS W/ [id number] 05: 20:00 Test Item Value Reference Range Comments COLOR (BEAKER) (test slqn=439) Yellow CLARITY (BEAKER) (test ulgx=654) Clear SPECIFIC GRAVITY UA (BEAKER) (test quzz=416) 1.011 1.001-1.035 PH UA (BEAKER) (test pdqb=170) 7.0 5.0-8.0 PROTEIN UA (BEAKER) (test ylcf=645) Negative Negative GLUCOSE UA (BEAKER) (test pkhr=308) Negative Negative KETONES UA (BEAKER) (test tgrv=003) Negative Negative BILIRUBIN UA (BEAKER) (test tcpf=447) Negative Negative BLOOD UA (BEAKER) (test eewl=552) Negative Negative NITRITE UA (BEAKER) (test tpez=495) Negative Negative LEUKOCYTE ESTERASE UA (BEAKER) (test xerv=870) Negative Negative UROBILINOGEN UA (BEAKER) (test tkyk=856) 2.0 mg/dL 0.2-1.0 RBC UA (BEAKER) (test zbfu=317) < /HPF WBC UA (BEAKER) (test wnhb=126) 0 /HPF SOURCE(BEAKER) (test cyxq=7431) [id number] 03:17:00 Test Item Value Reference Range Comments CARBAMAZEPINE LEVEL (BEAKER) (test udez=739) < ug/mL 4.0-12.0 [id number] 02:33:00 Test Item Value Reference Range Comments PHOSPHORUS (BEAKER) (test pift=183) 2.8 mg/dL 2.3-4.7 [id number] 02:33:00 Test Item Value Reference Range Comments MAGNESIUM (BEAKER) (test ujpw=206) 2.2 mg/dL 1.6-2.6 BASIC METABOLIC [id number] 02:33:00 Test Item Value Reference Range Comments SODIUM (BEAKER) (test 138 meq/L 136-145 gase=563) POTASSIUM (BEAKER) (test 3.4 meq/L 3.5-5.1 gswn=494) CHLORIDE (BEAKER) (test 109 meq/L 98-107 ggzr=278) CO2 (BEAKER) (test 21 meq/L 22-29 tbys=383) BLOOD UREA NITROGEN 16 mg/dL 7-21 (BEAKER) (test jgdr=948) CREATININE (BEAKER) (test 0.83 mg/dL 0.57-1.25 zojp=834) GLUCOSE RANDOM (BEAKER) 105 mg/dL 70-105 (test odwf=721) CALCIUM (BEAKER) (test 8.7 mg/dL 8.4-10.2 clli=026) EGFR (BEAKER) (test 109 mL/min/1.73 sq m ESTIMATED GFR IS NOT ttuu=6912) ACCURATE CREATININE CLEARANCE IN PREDICTING GLOMERULAR FILTRATION RATE. ESTIMATED GFR IS NOT APPLICABLE FOR DIALYSIS PATIENTS. HEPATIC FUNCTION [id number] 02:33:00 Test Item Value Reference Range Comments TOTAL PROTEIN (BEAKER) (test vqso=676) 6.5 gm/dL 6.0-8.3 ALBUMIN (BEAKER) (test edkf=1431) 3.9 g/dL 3.5-5.0 BILIRUBIN TOTAL (BEAKER) (test mnrm=553) 0.8 mg/dL 0.2-1.2 BILIRUBIN DIRECT (BEAKER) (test emup=771) 0.3 mg/dL 0.1-0.5 ALKALINE PHOSPHATASE (BEAKER) (test rhsm=486) 85 U/L 40-150 AST (SGOT) (BEAKER) (test jzku=397) 43 U/L 5-34 ALT (SGPT) (BEAKER) (test dxqi=034) 33 U/L 6-55 CREATINE KINASE (CK)2018-08-10 02:33:00 Test Item Value Reference Range Comments CREATINE KINASE TOTAL (BEAKER) (test ogph=278) 968 U/L 29-200 C-REACTIVE [id number] 02:33:00 Test Item Value Reference Range Comments C-REACTIVE PROTEIN (BEAKER) (test tijx=995) 0.45 mg/dL 0.00-0.50 LACTIC ACID, VENOUS, WHOLE [id number] 02:26:00 Test Item Value Reference Range Comments LACTATE BLOOD VENOUS (2) 1.0 mmol/L 0.5-2.2 Specimen slightly hemolyzed (BEAKER) (test pbif=5543) Effective 03/18/2016: Units/Reference Range ChangeNew: 0.5-2.2 mmol/L Previous: 5 -20 mg/dLCBC W/PLT COUNT & AUTO [id number] 02:05:00 Test Item Value Reference Range Comments WHITE BLOOD CELL COUNT (BEAKER) (test taly=473) 7.7 K/ L 3.5-10.5 RED BLOOD CELL COUNT (BEAKER) (test affl=208) 4.16 M/ L 4.63-6.08 HEMOGLOBIN (BEAKER) (test uzme=683) 12.3 GM/DL 13.7-17.5 HEMATOCRIT (BEAKER) (test sdzu=180) 36.8 % 40.1-51.0 MEAN CORPUSCULAR VOLUME (BEAKER) (test sxtr=342) 88.5 fL 79.0-92.2 MEAN CORPUSCULAR HEMOGLOBIN (BEAKER) (test 29.6 pg 25.7-32.2 rifk=999) MEAN CORPUSCULAR HEMOGLOBIN CONC (BEAKER) (test 33.4 GM/DL 32.3-36.5 sbrl=096) RED CELL DISTRIBUTION WIDTH (BEAKER) (test 13.4 % 11.6-14.4 iskv=012) PLATELET COUNT (BEAKER) (test fjfx=639) 195 K/CU MM 150-450 MEAN PLATELET VOLUME (BEAKER) (test edoq=280) 11.2 fL 9.4-12.4 NUCLEATED RED BLOOD CELLS (BEAKER) (test 0 /100 WBC 0-0 ryrm=021) NEUTROPHILS RELATIVE PERCENT (BEAKER) (test 58 % wjmu=867) LYMPHOCYTES RELATIVE PERCENT (BEAKER) (test 30 % fijm=729) MONOCYTES RELATIVE PERCENT (BEAKER) (test 10 % upus=852) EOSINOPHILS RELATIVE PERCENT (BEAKER) (test 2 % ixtc=384) BASOPHILS RELATIVE PERCENT (BEAKER) (test 1 % dttc=323) NEUTROPHILS ABSOLUTE COUNT (BEAKER) (test 4.46 K/ L 1.78-5.38 uljd=475) LYMPHOCYTES ABSOLUTE COUNT (BEAKER) (test 2.31 K/ L 1.32-3.57 vhfs=846) MONOCYTES ABSOLUTE COUNT (BEAKER) (test 0.74 K/ L 0.30-0.82 jsjf=677) EOSINOPHILS ABSOLUTE COUNT (BEAKER) (test 0.13 K/ L 0.04-0.54 zwsm=814) BASOPHILS ABSOLUTE COUNT (BEAKER) (test 0.04 K/ L 0.01-0.08 daru=259) IMMATURE GRANULOCYTES-RELATIVE PERCENT (BEAKER) 0 % 0-1 (test wwzq=9417) POCT-BLOOD GASES, [id number] 01:50:00 Test Item Value Reference Range Comments TEMP, CELSIUS-POC (BEAKER) 37.0 (test oyqs=7588) FIO2-POC (BEAKER) (test TESTED AT [address] vahs=2081) [place] [address] PH, ARTERIAL-POC (BEAKER) 7.396 7.350-7.450 (test njdp=0938) PCO2, ARTERIAL-POC (BEAKER) 35.3 mm Hg 35.0-45.0 (test clxn=5786) PO2, ARTERIAL-POC (BEAKER) 104.0 mm Hg 80.0-90.0 (test kexh=4021) SO2, ARTERIAL-POC (BEAKER) 98.0 % 96.0-97.0 (test ynld=0844) HCO3, ARTERIAL-POC (BEAKER) 21.7 meq/L 21.0-29.0 (test jvcu=7208) BASE EXCESS, ARTERIAL-POC -3.0 meq/L -2.0-3.0 (BEAKER) (test cefd=7958) [id number] 01:50:00 Test Item Value Reference Range Comments POC-SODIUM (BEAKER) (test 140 meq/L 135-148 TESTED AT [address] qrzp=8561) [place] [address] [id number] 01:50:00 Test Item Value Reference Range Comments POC-POTASSIUM (BEAKER) (test 3.4 meq/L 3.6-5.5 [address] utko[address]0613) [place] [address] [id number] 01:50:00 Test Item Value Reference Range Comments POC-GLUCOSE (BEAKER) (test 105 mg/dL 70-110 TESTED AT [address] evor=2006) [place] [address] POCT-CALCIUM [id number] 01:50:00 Test Item Value Reference Range Comments POC-CALCIUM IONIZED (BEAKER) 1.15 mmol/L 1.12-1.27 TESTED AT [address] (test kwcg=0050) [place] [address] [id number] 01:50:00 Test Item Value Reference Range Comments POC-HEMATOCRIT (BEAKER) (test 35 % 40-50 TESTED AT [address] psto=0373) [place] [address] [id number] 01:50:00 Test Item Value Reference Range Comments POC-HEMOGLOBIN (BEAKER) 11.9 g/dL 13.0-16.8 TESTED AT [address] (test ijhs=0042) [place] [address]TESTED AT [place] [address] POCT-LACTIC ACID, [id number] 01:49:00 Test Item Value Reference Range Comments POC-LACTIC ACID, ARTERIAL 0.9 mmol/L 0.4-1.3 TESTED AT [address] ([facility]) (test jhng=0901) [place] [address]
[2018-10-12 20:18] LABS: Absolute Lymphocytes (CBC) 2.8 K/uL (0.7-4.9); Absolute Monocytes 0.9 K/uL (0.1-1.3); Absolute Neutrophil 4.1 K/uL (1.8-8.0); Basophils % 0.6 % (0-1.3); Eosinophils % 0.4 % (0-4.4); Hematocrit 41.6 % (39.6-49.0); Lymphocytes % 35.7 % (15.3-44.8); MCH 30.3 pg (27.0-35.0); MCV 89.9 fL (80-100); MPV 8.5 fL (7.6-11.3); RBC Red Blood Cell Count 4.63 M/uL (4.33-5.43)
[2018-10-12] MEDS ORDERED: LEVETIRACETAM 500 MG/5 ML VIAL IV ONE ×2 (20:32→23:28)
[2018-10-12] MEDS ORDERED: DIAZEPAM 10 MG/2 ML INJ SYRINGE ONE (20:33)
[2018-10-12] MEDS ORDERED: NA CHLORIDE 0.9% 250 ML ONE (20:33)
[2018-10-12 20:46] LABS: Phenytoin (Dilantin) Level 5.1 ug/mL (10.0-20.0); Potassium 3.6 mmol/L (3.5-5.1)
[2018-10-12] MEDS ORDERED: LORazepam 2 MG/ML VIAL ONE ×2 (20:47→21:52)
[2018-10-12] MEDS ORDERED: KETAMINE HCL 500 MG/5 ML VIAL ONE (21:54)
--- NOTE | 2018-10-12 22:07 | RAD REPORT ---
EXAM DESCRIPTION: CT - CTHCSPWOC - 10/12/2018 9:57 pm CLINICAL HISTORY: Seizure, head and neck injury COMPARISON: CT head and neck August 09 TECHNIQUE: Axial 5 mm thick images of the head were obtained. Axial 2 mm thick images of the cervic al spine were obtained with sagittal and coronal reconstruction images generated and reviewed. All CT scans are performed using dose optimization technique as appropriate and may include automated exposure control or mA/KV adjustment according to patient size. FINDINGS: No intracranial hemorrhage, mass, edema or acute intracranial finding. No suspicion for acute infarct ion. No extra-axial fluid collections. Mastoid air cells and paranasal sinuses are clear. No globe or orbit abnormality seen. Cervical body height and alignment are normal. 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 No significant disc space narr owing. No fracture or acute bony abnormality. No paraspinal mass or hematoma. IMPRESSION: Negative CT head examination for acute or significant finding. Negative CT cervical spine examination for acute or significant finding. No significant changes from August 09.
[2018-10-12] MEDS ORDERED: NA CHLORIDE 0.9% 500 ML ONE (22:41)
--- NOTE | 2018-10-12 22:41 | EDPHYS ---
Physician Documentation [facility] Name: Alfie Zavala Age: 28 yrs Sex: Male : 1990 Arrival Date: 10/12/2018 Time: 19:36 Bed 2 Private MD: ED Physician Silvestre Mittal HPI: 10/12 20:00 This 28 yrs old Male presents to ER via Ambulatory with complaints of Seizure. pm1 20:00 The patient presents with a history of multiple seizures, a total of 3, the episode(s) pm1 was witnessed, by family, brother. Character of seizure(s): Loss of consciousness: the patient did not lose consciousness, Motor activity: generalized, shaking all over, Incontinence: none, Apnea: the patient did not experience apnea, Circulation: the patient did not experience evidence of pulse disturbance, Eye movements: eyes rolling back. Seizure onset: today. Seizure Hx: Seizure medications: phenytoin, tegretol, Valium. Associated injury: Head/face: reports headache, fall with prior seizure today. Current symptoms: headache. The patient has experienced similar episodes in the past, multiple times. Historical: - Allergies: 19:47 Ativan; aj - Home Meds: 19:47 fluoxetine 40 mg Oral cap 1 cap once daily [Active]; lamotrigine 200 mg Oral tab 2 tabs aj once daily [Active]; Phenytoin 100 mg Oral 2 tabs 3 times per day [Active]; sumatriptan oral 50 mg as needed [Active]; Tegretol 200 mg Oral tab 1 tab every 12 hours [Active]; topiramate 50 mg Oral CSpX 1 cap twice a day [Active]; diazepam 10 mg Oral tab 1 tab daily prn for Acute Repetitive Seizures, Anxiety [Active]; 22:53 gabapentin 300 mg oral cap 1 cap 3 times per day [Active]; carbamazepine 200 mg Oral tl3 CM12 [Active]; - PMHx: 19:47 Depression; Headaches; Seizures; aj - PSHx: 19:47 Appendectomy; aj - Immunization history:: Adult Immunizations up to date. - Social history:: Smoking status: Patient/guardian denies using tobacco. - Ebola Screening: : Patient negative for fever greater than or equal to 101.5 degrees Fahrenheit, and additional compatible Ebola Virus Disease symptoms Patient denies exposure to infectious person Patient denies travel to an Ebola-affected area in the 21 days before illness onset No symptoms or risks identified at this time. ROS: 20:00 Constitutional: Negative for fever, chills, and weight loss, Eyes: Negative for injury, pm1 pain, redness, and discharge, ENT: Negative for injury, pain, and discharge, Neck: Negative for injury, pain, and swelling, Cardiovascular: Negative for chest pain, palpitations, and edema, Respiratory: Negative for shortness of breath, cough, wheezing, and pleuritic chest pain, Abdomen/GI: Negative for abdominal pain, nausea, vomiting, diarrhea, and constipation, Back: Negative for injury and pain, : Negative for injury, bleeding, discharge, and swelling, MS/Extremity: Negative for injury and deformity, Skin: Negative for injury, rash, and discoloration. 20:00 Neuro: Positive for headache, seizure activity, Negative for numbness, tingling, weakness. Exam: 20:00 Constitutional: This is a well developed, well nourished patient who is awake, alert, pm1 and in no acute distress. Head/Face: Normocephalic, atraumatic. Eyes: Pupils equal round and reactive to light, extra-ocular motions intact. Lids and lashes normal. Conjunctiva and sclera are non-icteric and not injected. Cornea within normal limits. Periorbital areas with no swelling, redness, or edema. ENT: Nares patent. No nasal discharge, no septal abnormalities noted. Tympanic membranes are normal and external auditory canals are clear. Oropharynx with no redness, swelling, or masses, exudates, or evidence of obstruction, uvula midline. Mucous membranes moist. Neck: Trachea midline, no thyromegaly or masses palpated, and no cervical lymphadenopathy. Supple, full range of motion without nuchal rigidity, or vertebral point tenderness. No Meningismus. Chest/axilla: Normal chest wall appearance and motion. Nontender with no deformity. No lesions are appreciated. Cardiovascular: Regular rate and rhythm with a normal S1 and S2. No gallops, murmurs, or rubs. Normal PMI, no JVD. No pulse deficits. Respiratory: Lungs have equal breath sounds bilaterally, clear to auscultation and percussion. No rales, rhonchi or wheezes noted. No increased work of breathing, no retractions or nasal flaring. Abdomen/GI: Soft, non-tender, with normal bowel sounds. No distension or tympany. No guarding or rebound. No evidence of tenderness throughout. Back: No spinal tenderness. No costovertebral tenderness. Full range of motion. Skin: Warm, dry with normal turgor. Normal color with no rashes, no lesions, and no evidence of cellulitis. MS/ Extremity: Pulses equal, no cyanosis. Neurovascular intact. Full, normal range of motion. 20:00 Neuro: Orientation: to person, place, time, Motor: is normal, moves all fours, Gait: is steady, at a normal pace, without difficulty. Vital Signs: 19:47 BP 128 / 88; Pulse 85; Resp 16; Temp 98.2; Pulse Ox 100% on R/A; Weight 105.23 kg; aj Height 5 ft. 10 in. (177.80 cm); 20:47 BP 110 / 64; Pulse 118; Resp 20; Pulse Ox 100% on Non-rebreather mask; tl3 21:35 BP 118 / 75; Pulse 78; Resp 20; Pulse Ox 100% on R/A; tl3 23:26 BP 112 / 70; Pulse 112; Resp 22 S; Pulse Ox 100% on R/A; jd3 23:33 BP 118 / 79; Pulse 108; Resp 29 S; Pulse Ox 100% on BVM; jd3 23:40 BP 146 / 103; Pulse 100; Resp 22 A; Pulse Ox 100% on ETT vent; jd3 10/13 00:00 BP 144 / 83; Pulse 121; Resp 19 A; Pulse Ox 100% on ETT vent; jd3 10/12 19:47 Body Mass Index 33.29 (105.23 kg, 177.80 cm) [place] Coma Score: 10/12 19:47 Eye Response: spontaneous(4). Verbal Response: oriented(5). Motor Response: obeys aj commands(6). Total: 15. MDM: 19:50 Patient medically screened. pm1 22:38 Data reviewed: vital signs. Data interpreted: Pulse oximetry: on room air is 100 %. pm1 Interpretation: normal. Counseling: I had a detailed discussion with the patient and/or guardian regarding: the historical points, exam findings, and any diagnostic results supporting the discharge/admit diagnosis, lab results, radiology results, the need to transfer to another facility, for higher level of care, [facility] does not immediately have the required specialist. 23:07 Physician consultation: MD Vasquez was contacted at 23:07, regarding regarding transfer, pm1 patient's condition, would like medications started, Additional 2 gm Keppra for 3 grams total , Informed that we will intubate the patient due to continued seizures, will use versed and propofol. 10/12 19:56 Order name: CBC with Diff; Complete Time: 22:10 pm1 10/12 19:56 Order name: Chem 7; Complete Time: 22:10 pm1 10/12 19:56 Order name: Dilantin; Complete Time: 22:10 pm1 10/12 19:56 Order name: Tegretol Level; Complete Time: 22:10 pm1 10/12 22:22 Order name: Alcohol Level pm1 10/12 20:38 Order name: CT Head C Spine; Complete Time: 22:10 pm1 10/12 22:22 Order name: Lactate pm1 10/12 22:23 Order name: Alcohol Serum/Plasma; Complete Time: 23:52 EDMS 10/12 22:23 Order name: Lactate; Complete Time: 23:52 EDMS 10/13 00:11 Order name: Chest Single View XRAY fc 10/12 19:56 Order name: IV Saline Lock; Complete Time: 20:46 pm1 Administered Medications: 20:31 Drug: Valium 10 mg Route: IVP; Infused Over: 1 mins; Site: right antecubital; tl3 21:37 Follow up: Response: No adverse reaction tl3 20:31 Drug: Keppra 1000 mg Route: IV; Rate: calculated rate; Site: right antecubital; tl3 Delivery: Primary tubing; 20:45 Follow up: IV Status: Completed infusion; IV Intake: 250ml tl3 20:55 Drug: Ativan 2 mg Route: IVP; Infused Over: 1 mins; Site: right antecubital; tl3 10/13 00:46 Follow up: Response: No change in condition jd3 10/12 21:00 Drug: NS 0.9% 1000 ml Route: IV; Rate: 1000 ml; Site: right antecubital; Delivery: tl3 Primary tubing; 21:48 Drug: Ketamine 100 mg Route: IVP; Infused Over: 1 mins; Site: right antecubital; tl3 10/13 00:45 Follow up: Response: No adverse reaction [facility] 10/12 22:05 Drug: Ativan 2 mg Route: IVP; Infused Over: 1 mins; Site: right antecubital; tl3 22:14 Follow up: Response: No change in condition tl3 22:05 Drug: Ativan 2 mg Route: IVP; Infused Over: 1 mins; Site: right antecubital; tl3 22:14 Follow up: Response: No adverse reaction tl3 22:09 Drug: Fosphenytoin 30 mg pe/kg Route: IV; Rate: 15 calculated rate; Site: right tl3 antecubital; Delivery: Primary tubing; 22:09 Follow up: IV Status: Completed infusion; IV Intake: 100ml tl3 22:46 CANCELLED (Physician Discretion): Ketalar 1 mg/kg IVP See Administration Instructions; j mix 500 mg in 500 ml NS and give at 1mg/kg/hr 22:48 Drug: Ketalar 1 mg/kg Route: IVP; Site: right antecubital; [facility] 10/13 00:45 Follow up: Response: Other; continued infusion upon transfer [facility] 10/12 23:34 Drug: Etomidate 20 mg Route: IVP; Site: right hand; [facility] 10/13 00:48 Follow up: Response: No adverse reaction [facility] 10/12 23:34 Drug: Succinylcholine 100 mg Route: IVP; Site: right hand; [facility] 10/13 00:48 Follow up: Response: No adverse reaction [facility] 10/12 23:40 Drug: Propofol 5 mcg/kg/min Route: IV; Rate: calculated rate; Site: right hand; [facility] 10/13 00:48 Follow up: IV Status: Infusion continued upon transfer jd3 00:14 Drug: Keppra 2000 mg {Note: 1000mg given per hospital availability..} Route: IV; Rate: jd3 calculated rate; Site: right hand; 00:44 Follow up: Response: No adverse reaction; IV Status: Infusion continued upon transfer j Disposition: 06:39 Co-signature as Attending Physician, Silvestre Mittal MD Available for consultation at ps1 all times. . Disposition: 10/12/18 22:40 Transfer ordered to [facility]. Diagnosis is Epileptic seizures related to external causes, not intractable, with status epilepticus. - Reason for transfer: Higher level of care. - Accepting physician is [facility]. - Condition is Stable. - Problem is new. - Symptoms have improved. Signatures: Dispatcher [employer] Akila Richardson, RN RN Gil Juarez NP PERSONAL BANKING ASSISTANT pm1 Philip Jeronimo, RN RN jd3 Silvestre Mittal MD MD ps1 Lowrey, Tammy RN RN tl3 Corrections: (The following items were deleted from the chart) 10/12 22:44 22:40 10/12/2018 22:40 Transfer ordered to [facility]. pm1 Diagnosis is Epileptic seizures related to external causes, not intractable, without status epilepticus. Reason for transfer: Higher level of care. Accepting physician is [facility]. Condition is Stable. Problem is new. Symptoms have improved. pm1 22:46 22:46 Ketalar 1 mg/kg IVP See Administration Instructions; mix 500 mg in 500 ml NS and jd3 give at 1mg/kg/hr ordered. jd3 10/13 00:41 10/12 22:44 10/12/2018 22:40 Transfer ordered to [facility]. jd3 Diagnosis is Epileptic seizures related to external causes, not intractable, with status epilepticus. Reason for transfer: Higher level of care. Accepting physician is [facility]. Condition is Stable. Problem is new. Symptoms have improved. pm1
--- NOTE | 2018-10-12 22:41 | ER ---
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 Transition of care: patient was not received from another setting of care. Onset of symptoms was October 12, 2018. Risk Assessment: Do you want to hurt yourself or someone else? Patient reports no desire to harm self or others. Initial Sepsis Screen: Does the patient meet any 2 criteria? No. Patient's initial sepsis screen is negative. Does the patient have a suspected source of infection? No. Patient's initial sepsis screen is negative. Care prior to arrival: None. 19:46 Method Of Arrival: Ambulatory aj 19:46 Acuity: KEN 3 aj Triage Assessment: 19:47 General: Appears in no apparent distress. comfortable, Behavior is calm, cooperative, aj appropriate for age. Pain: Complains of pain in scalp. Neuro: Level of Consciousness is awake, alert, obeys commands, Oriented to person, place, time, situation, Appropriate for age Seizure activity reported prior to arrival. Type of seizure: grand mal seizure. Seizure lasted approximately 1 minutes. Respiratory: Airway is patent Respiratory effort is even, unlabored, Respiratory pattern is regular, symmetrical. Derm: Skin is intact, is healthy with good turgor, Skin is pink, warm \T\ dry. normal. Historical: - Allergies: 19:47 Ativan; aj - Home Meds: 19:47 fluoxetine 40 mg Oral cap 1 cap once daily [Active]; lamotrigine 200 mg Oral tab 2 tabs aj once daily [Active]; Phenytoin 100 mg Oral 2 tabs 3 times per day [Active]; sumatriptan oral 50 mg as needed [Active]; Tegretol 200 mg Oral tab 1 tab every 12 hours [Active]; topiramate 50 mg Oral CSpX 1 cap twice a day [Active]; diazepam 10 mg Oral tab 1 tab daily prn for Acute Repetitive Seizures, Anxiety [Active]; 22:53 gabapentin 300 mg oral cap 1 cap 3 times per day [Active]; carbamazepine 200 mg Oral tl3 CM12 [Active]; - PMHx: 19:47 Depression; Headaches; Seizures; aj - PSHx: 19:47 Appendectomy; aj - Immunization history:: Adult Immunizations up to date. - Social history:: Smoking status: Patient/guardian denies using tobacco. - Ebola Screening: : Patient negative for fever greater than or equal to 101.5 degrees Fahrenheit, and additional compatible Ebola Virus Disease symptoms Patient denies exposure to infectious person Patient denies travel to an Ebola-affected area in the 21 days before illness onset No symptoms or risks identified at this time. Screenin:00 Abuse screen: Denies threats or abuse. Nutritional screening: No deficits noted. tl3 Tuberculosis screening: No symptoms or risk factors identified. Fall Risk Fall in past 12 months (25 points). Secondary diagnosis (15 points) seizures, IV access (20 points). Assessment: 20:18 Reassessment: pt started with tonic clonic seizing, pt turned on his side, oxygen per tl3 non-re breather administered and called for assistance, activity lasted for 3 minutes. New orders received, 20g placed to RAC. 20:32 Reassessment: seizure activity resumed, pt turned on side, oxygen applied per NRB with tl3 mask, episode lasted 7 minutes, provider aware. Reassessment: Critical care time stopped, patient has stabilized. 20:55 Reassessment: seizing resumed, seizure precautions utilized, provider notified. tl3 21:00 Reassessment: seizure activity stopped, attempted 2nd IV with no success, pt seemed to tl3 stabalize. Reassessment: Patient states symptoms have improved. 21:00 Reassessment: pt transported to CT, called for additional seizure activity, 4 mg total tl3 Ativan, 100 mg Ketamine administered prior to CT, transferred to trauma room bed 2. 22:55 Reassessment: No changes from previously documented assessment. report received from sarita Elizondo RN. providers at bedside. pt seizing. 23:26 Reassessment: Patient and/or family updated on plan of care and expected duration. Pain jd3 level reassessed. pt prepared for intubation. 23:36 Reassessment: pt intubated 7.5 tube, 23 \T\ teeth. vadimd3 10/13 00:00 Reassessment: nurse at bedside monitoring vitals. jd3 00:20 Reassessment: report given to life flight. jd3 Vital Signs: 10/12 19:47 BP 128 / 88; Pulse 85; Resp 16; Temp 98.2; Pulse Ox 100% on R/A; Weight 105.23 kg; aj Height 5 ft. 10 in. (177.80 cm); 20:47 BP 110 / 64; Pulse 118; Resp 20; Pulse Ox 100% on Non-rebreather mask; tl3 21:35 BP 118 / 75; Pulse 78; Resp 20; Pulse Ox 100% on R/A; tl3 23:26 BP 112 / 70; Pulse 112; Resp 22 S; Pulse Ox 100% on R/A; jd3 23:33 BP 118 / 79; Pulse 108; Resp 29 S; Pulse Ox 100% on BVM; jd3 23:40 BP 146 / 103; Pulse 100; Resp 22 A; Pulse Ox 100% on ETT vent; jd3 10/13 00:00 BP 144 / 83; Pulse 121; Resp 19 A; Pulse Ox 100% on ETT vent; jd3 10/12 19:47 Body Mass Index 33.29 (105.23 kg, 177.80 cm) aj Gunpowder Coma Score: 10/12 19:47 Eye Response: spontaneous(4). Verbal Response: oriented(5). Motor Response: obeys aj commands(6). Total: 15. ED Course: 19:36 Patient arrived in ED. ds1 19:47 Triage completed. aj 19:47 Arm band placed on right wrist. Patient placed in an exam room. aj 19:50 Gil Almeida NP is PHCP. pm1 19:50 Silvestre Mittal MD is Attending Physician. pm1 20:15 Inserted saline lock: 20 gauge in right antecubital area, using aseptic technique. tl3 20:47 Radiology exam delayed due to PER NURSE CARO, PT IS BEING GIVEN KEPPRA AT THIS TIME vr AND IS NOT STABLE ENOUGH TO COME TO CT, WILL CALL BACK IN 10 MINS TO CHECK ON PT'S STATUS. 21:00 Patient has correct armband on for positive identification. Bed in low position. Call tl3 light in reach. Side rails up X2. Seizure precautions initiated. 21:00 No provider procedures requiring assistance completed. tl3 21:13 Radiology exam delayed due to PT IS STILL UNSTABLE AT THIS TIME. vr 21:[address] via stretcher. vr 21:57 CT Head C Spine In Process Unspecified. EDMS 22:55 Philip Jeronimo, RN is Primary Nurse. jd3 23:23 Notified Nurse Practitioner and/or Physician Sock Knitter of a critical lab result(s), fc lactate of 2.1. 23:31 Inserted saline lock: 20 gauge in right hand, using aseptic technique. jd3 10/13 00:20 Patient transferred, IV remains in place. jd3 00:28 X-ray completed. Portable x-ray completed in exam room. Patient tolerated procedure kw well. 00:31 Chest Single View XRAY In Process Unspecified. EDMS Administered Medications: 10/12 20:31 Drug: Valium 10 mg Route: IVP; Infused Over: 1 mins; Site: right antecubital; tl3 21:37 Follow up: Response: No adverse reaction tl3 20:31 Drug: Keppra 1000 mg Route: IV; Rate: calculated rate; Site: right antecubital; tl3 Delivery: Primary tubing; 20:45 Follow up: IV Status: Completed infusion; IV Intake: 250ml tl3 20:55 Drug: Ativan 2 mg Route: IVP; Infused Over: 1 mins; Site: right antecubital; tl3 10/13 00:46 Follow up: Response: No change in condition jd3 10/12 21:00 Drug: NS 0.9% 1000 ml Route: IV; Rate: 1000 ml; Site: right antecubital; Delivery: tl3 Primary tubing; 21:48 Drug: Ketamine 100 mg Route: IVP; Infused Over: 1 mins; Site: right antecubital; tl3 10/13 00:45 Follow up: Response: No adverse reaction jd3 10/12 22:05 Drug: Ativan 2 mg Route: IVP; Infused Over: 1 mins; Site: right antecubital; tl3 22:14 Follow up: Response: No change in condition tl3 22:05 Drug: Ativan 2 mg Route: IVP; Infused Over: 1 mins; Site: right antecubital; tl3 22:14 Follow up: Response: No adverse reaction tl3 22:09 Drug: Fosphenytoin 30 mg pe/kg Route: IV; Rate: 15 calculated rate; Site: right tl3 antecubital; Delivery: Primary tubing; 22:09 Follow up: IV Status: Completed infusion; IV Intake: 100ml tl3 22:46 CANCELLED (Physician Discretion): Ketalar 1 mg/kg IVP See Administration Instructions; jd3 mix 500 mg in 500 ml NS and give at 1mg/kg/hr 22:48 Drug: Ketalar 1 mg/kg Route: IVP; Site: right antecubital; jd3 10/13 00:45 Follow up: Response: Other; continued infusion upon transfer jd3 10/12 23:34 Drug: Etomidate 20 mg Route: IVP; Site: right hand; jd3 10/13 00:48 Follow up: Response: No adverse reaction jd3 10/12 23:34 Drug: Succinylcholine 100 mg Route: IVP; Site: right hand; jd3 10/13 00:48 Follow up: Response: No adverse reaction jd3 10/12 23:40 Drug: Propofol 5 mcg/kg/min Route: IV; Rate: calculated rate; Site: right hand; jd3 10/13 00:48 Follow up: IV Status: Infusion continued upon transfer jd3 00:14 Drug: Keppra 2000 mg {Note: 1000mg given per hospital availability..} Route: IV; Rate: jd3 calculated rate; Site: right hand; 00:44 Follow up: Response: No adverse reaction; IV Status: Infusion continued upon transfer jd3 Intake: 10/12 20:45 IV: 250ml; Total: 250ml. tl3 22:09 IV: 100ml; Total: 350ml. tl3 Outcome: 22:40 ER care complete, transfer ordered by . pm1 10/13 00:20 Transferred by helicopter Transfer form completed. X-rays sent w/ patient. jd3 Condition: stable Instructed on the need for transfer, Demonstrated understanding of instructions. 00:20 Patient left the ED. jd3 Signatures: Dispatcher [employer] EDAkila Lipscomb RN RN aj Chretien, Felicia, RN RN fc Sanford, Demi dsAngelica Jhaveri Kimberlee kw Marinas, Patrick, INDUSTRIAL EQUIPMENT MECHANIC INDUSTRIAL EQUIPMENT MECHANIC pm1 Philip Jeronimo RN RN jd3 Lowrey, Tammy, RN RN tl3 Corrections: (The following items were deleted from the chart) 10/12 20:48 20:[address] via stretcher. vr vr 22:08 22:07 Fosphenytoin 30 mg pe/kg IV at 15 calculated rate in right antecubital via tl3 Primary tubing tl3 22:20 20:47 Reassessment: pt started with tonic clonic seizing, pt turned on his side, oxygen tl3 per non-re breather administered and called for assistance, activity lasted for 3 minutes. New orders received, 20g placed to RAC tl3 10/13 00:23 10/12 23:26 Reassessment: Patient and/or family updated on plan of care and expected jd3 duration. Pain level reassessed. pt prepared for intubation. jd3 10/13 00:23 10/12 23:26 Reassessment: report received from Caro. jd3 jd3 10/13 00:44 00:41 Patient left the ED. jd3 jd3 00:50 00:21 Reassessment: report given to april delacruz. jd3 jd3
[2018-10-12] MEDS ORDERED: MIDAZOLAM HCL 2 MG/2 ML INJ ONE (23:16)
[2018-10-12] MEDS ORDERED: PROPOFOL 1,000 MG/100 ML VIAL IV ONE (23:16)
[2018-10-12] MEDS ORDERED: RSI MEDICATION KIT IV ONE (23:28)
[2018-10-12] MEDS ORDERED: NA CHLORIDE 0.9% 2,000 ML ONE (23:37)
[2018-10-13] MEDS ORDERED: NA CHLORIDE 0.9% 100 ML IV ONE (00:17)
[2018-10-13 01:27] VITALS: TEMP 98.2; O2SAT 100
[2018-10-13 01:33] VITALS: BP 146/103
--- NOTE | 2018-10-13 07:08 | RAD REPORT ---
EXAM DESCRIPTION: RAD - Chest Single View - 10/13/2018 12:31 am CLINICAL HISTORY: Respiratory distress, intubation COMPARISON: September 10 TECHNIQUE: AP portable chest image was obtained 0018 hours . FINDINGS: Lung volumes are very low accentuating heart, vasculature and lung markings. Significant c hange in the lung parenchyma from August is not identified. Endotracheal tube is in good position 2 cm above the raghav. Heart size is normal. Vasculature is prominent, accentuated by shallow inspiration. No significant ch king from comparison. No measurable pleural effusion and no pneumothorax. No acute bony abnormality seen. No acute aortic findings suspected. IMPRESSION: Endotracheal tube in good position 2 cm above the raghav. Central vasculature and lung markings are prominent but not clearly different from comparison.
== END 2018-10-13 00:41 | disposition short-term general hospital (02) ==
LOC: ER 19:30
DX: G40.501 Epileptic seizures related to external causes, not intractable, with status epilepticus (principal); F32.9 Major depressive disorder, single episode, unspecified; Z88.8 Allergy status to other drugs, medicaments and biological substances
CPT/HCPCS: 36415; 70450; 71045; 72125; 80048; 80156; 80185; 80320; 83605; 85025; 99285; J0330; J1953; J2250; J2704; J3360; J7030

== ENCOUNTER 2018-11-24 00:22 | Inpatient (IN) | payer BC ==
--- OUTSIDE RECORDS SUMMARY | 2018-11-24 00:25 | XMS REPORT | Clinical Summary ---
:1990 Author Organization [facility] Address [address] [place] [address] Care Team Providers Name Role Phone Andrew [...] mouth 3 ER capsule (three) times daily. gabapentin Take 1 capsule 30 capsule 0 [...] mouth 2 (two) 8 tablet times daily. carBAMazepine Take 1 tablet 60 tablet 2 09/13/2018 (TEGRETOL) 200 mg (200 mg total) 8 tablet by mouth 2 (two) times daily for 30 days. Active Problems Problem Noted Date Status epilepticus 09/10/2018 Acute respiratory failure with hypoxia 09/10/2018 Essential hypertension 09/10/2018 Acute encephalopathy 09/10/2018 Obesity 08/13/2018 Severe episode of recurrent major depressive disorder 08/11/2018 Suicide attempt 08/11/2018 Seizure 08/10/2018 Encounters Date Type Specialty Care Team Description 09/11/2018 Travel 09/10/2018 - Hospital General Internal [facility] [place] Wolfe, Status epilepticus (HCC); 09/13/2018 Encounter Medicine [...] 08/10/2018 Orders Only General Internal Medicine after 11/23/2017 Immunizations Name Dates Previously Given Next Due [...] 390 ms QTC Calculation(Bazett) 417 ms P Rosenhayn 14 degrees R Rosenhayn 45 degrees T Rosenhayn 16 degrees Normal sinus rhythm Normal ECG [...] ARTERIAL Routine 08/10/2018 1:35 AM CDT after 11/23/2017 Results RHYTHM STRIP - SCAN (09/14/2018 1:00 PM CDT)Only the most recent of2 resultswithin the time period is included. Narrative Performed At XR chest 1 view portable / bedside (09/13/2018 3:47 AM CDT)Only the most recent of3 resultswithin the time period is included. Narrative Performed At FINAL REPORT [facility] HISTORY : post intubation. Comparison: 09/11/2018 Comment: [...] MD Report Verified Date/Time:09/13/2018 07:27:51 Reading Location: [facility] Radiology Reading Room Procedure Note Interface, External [...] Report Verified Date/Time: 09/13/2018 07:27:51 Reading Location: [facility] Radiology Reading Room Performing Organization Address City/State/Zipcode Phone Number [facility] CBC with platelet count + automated diff (09/13/2018 3:37 AM CDT)Only the most recent of4 resultswithin the time period is included. WBC 6.1 3.5 - 10.5 K/L [facility] RBC 3.85 (L) 4.63 - 6.08 M/L [facility] Hemoglobin 11.4 (L) 13.7 - 17.5 GM/DL [facility] Hematocrit 35.1 (L) 40.1 - 51.0 % [facility] MCV 91.2 79.0 - 92.2 fL [facility] MCH 29.6 25.7 - 32.2 pg [facility] MCHC 32.5 32.3 - 36.5 GM/DL [facility] RDW 13.7 11.6 - 14.4 % [facility] Platelets 162 150 - 450 K/CU MM [facility] MPV 10.4 9.4 - 12.4 fL [facility] nRBC 0 0 - 0 /100 WBC [facility] % Neutros 58 % [facility] % Lymphs 32 % [facility] % Monos 9 % [facility] % Eos 1 % [facility] % Baso 0 % [facility] # Neutros 3.54 1.78 - 5.38 K/L [facility] # Lymphs 1.93 1.32 - 3.57 K/L [facility] # Monos 0.52 0.30 - 0.82 K/L [facility] # Eos 0.07 0.04 - 0.54 K/L [facility] # Baso 0.02 0.01 - 0.08 K/L [facility] Immature Granulocytes-Relative 0 0 - 1 % [facility] Specimen Blood Performing Organization Address City/State/Zipcode Phone Number [facility] [address] [place] [address] CENTER Phosphorus (09/13/2018 3:37 AM CDT)Only the most recent of4 resultswithin the time period is included. Phosphorus 2.9 2.3 - 4.7 mg/dL [facility] Specimen Blood Narrative Performed At Check Serum Phosphorus level 4 hours after IV [facility] phosphorus replacement or 8 hours after PO replacement completed. Performing Organization Address City/State/Zipcode Phone Number [address] [address] CENTER Magnesium (09/13/2018 3:37 AM CDT)Only the most recent of6 resultswithin the time period is included. Magnesium 2.2 1.6 - 2.6 mg/dL [facility] Specimen Blood Narrative Performed At Check Serum Phosphorus level 4 hours after IV [facility] phosphorus replacement or 8 hours after PO replacement completed. Performing Organization Address [facility] Phone Number [address] [address] ANTH[place] Basic Metabolic Panel (09/13/2018 3:37 AM CDT)Only the most recent of7 resultswithin the time period is included. Sodium 142 136 - 145 meq/L [facility] Potassium 3.6 3.5 - 5.1 meq/L [facility] Chloride 114 (H) 98 - 107 meq/L [facility] CO2 22 22 - 29 meq/L [facility] BUN 8 7 - 21 mg/dL [facility] Creatinine 0.68 0.57 - 1.25 mg/dL [facility] Glucose 109 (H) 70 - 105 mg/dL [facility] Calcium 8.4 8.4 - 10.2 mg/dL [facility] EGFR 137Comment: ESTIMATED GFR IS mL/min/1.73 sq m [facility] NOT ACCURATE [facility] CLEARANCE IN PREDICTING GLOMERULAR FILTRATION RATE. ESTIMATED GFR IS NOT APPLICABLE FOR DIALYSIS PATIENTS. Specimen Blood Narrative Performed At Check Serum Phosphorus level 4 hours after IV [facility] phosphorus replacement or 8 hours after PO replacement completed. Performing Organization Address City/[facility] Phone Number [address] [address] [phone] ANTHONY Potassium (09/12/2018 6:02 PM CDT)Only the most recent of3 resultswithin the time period is included. Potassium 3.9 3.5 - 5.1 meq/L [facility] Specimen Blood - Arm, Left Narrative Performed At Check Serum Potassium level 2 hours after [facility] oral potassium replacement completed or 30 min after intravenous potassium replacement. Performing Organization Address [facility] Phone Number [address] [address] ANTH[place] Calcium, Ionized (09/12/2018 11:37 AM CDT) Calcium, Ion 1.09 (L) 1.12 - 1.27 mmol/L [facility] pH, Blood 7.46 [facility] Specimen Blood Narrative Performed At Check serum Ionized Calcium level after 4 [facility] hours after IV Calcium replacement. Performing Organization Address City/[facility] Phone Number [address] [phone] ANTHONY EEG monitoring with video recording each 24 hours (09/12/2018 8:15 AM CDT) Narrative Performed At DATE OF REPORT: 09/12/2018 [facility] ACC: [id number] EE Start time: 09/11 at 0920 AM Stop time: 09/12 at 11:11 AM ICD-10: R56.9 CPT Code: 06149 HISTORY: 28 year old male p/w increased [...] Davis Cintron MD, PhD Attending Neurophysiologist [facility] Procedure Note Interface, External Ris In - 09/12/2018 2:34 PM CDT DATE OF REPORT: 09/12/2018 ACC: [id number] EE Start time: 09/11 at 0920 AM Stop time: 09/12 at 11:11 AM ICD-10: R56.9 CPT Code: 88687 HISTORY: 28 year old male p/w increased [...] Fellow Davis Cintron MD, PhD Attending Neurophysiologist [facility] Performing Organization Address City/State/Zipcode Phone Number GE RIS POC-Glucose meter (09/11/2018 11:45 PM CDT)Only the most recent of4 resultswithin the time period is included. POC-Glucose Meter 94Comment: TESTED AT 70 - 110 mg/dL [address] [address] Specimen Blood Performing Organization Address [facility] Phone Number [address] [address] CENTER EEG monitoring with video recording each 24 hours (09/11/2018 6:59 AM CDT) Narrative Performed At DATE OF REPORT: 09/11/2018 GE RIS ACC: [id number] EE Start time: 09/10 at 15:05 Stop time: 09/11 at 09:20 AM ICD-10: R56.9 CPT Code: 75283 HISTORY: 28 yo male with h/o seizures [...] Joao Blum M.D., FLOR Professor of Neurology [facility] Director, [facility] Epilepsy Center Head, [facility] Procedure Note Interface, External Ris In - 09/11/2018 9:23 AM CDT DATE OF REPORT: 09/11/2018 ACC: [id number] EE Start time: 09/10 at 15:05 Stop time: 09/11 at 09:20 AM ICD-10: R56.9 CPT Code: 62121 HISTORY: 28 yo male with h/o seizures [...] Joao Blum M.D., FLOR Professor of Neurology [facility] [employer] Director, [facility] Epilepsy [place] Head, Turner [place] Neurophysiology Lab Performing Organization Address City/[facility] [facility] Phone Number GE RIS Blood gas, arterial (09/11/2018 3:20 AM CDT)Only the most recent of2 resultswithin the time period is included. pH, Arterial 7.38 7.35 - 7.45 [facility] pCO2, Arterial 42 35 - 45 mmHg [facility] pO2, Arterial 120 (H) 80 - 90 mmHg [facility] O2 Sat, Arterial 98.3 (H) 96.0 - 97.0 % [facility] HCO3, Arterial 24 21 - 29 mmol/L [facility] Base Excess, Arterial -0.8 -2.0 - 3.0 mmol/L [facility] Patient Temperature 37.0 C [facility] FIO2 40.0 % [facility] Specimen Blood, Arterial Performing Organization Address [facility] [facility] Cent[facility]ode Phone Number [place] [phone] [place] [address] [phone] CENTER Troponin I (09/10/2018 4:39 PM CDT)Only the most recent of2 resultswithin the time period is included. Troponin I <0.01 0.00 - 0.03 ng/mL [facility] Specimen Blood Narrative Performed At Troponin I (TnI) levels must be interpreted [facility] in the context of the presenting [...] disease, and persistent tachyarrhythmia. Performing Organization Address [facility]/Zipcode Phone Number [facility] [address] [place] [address] CENTER EEG AWAKE AND DROWSY (09/10/2018 3:06 PM CDT) Narrative Performed At DATE OF REPORT: 09/10/2018 RIS ACC: [id number] EE Start time: 14:47 Stop time: 15:04 ICD-10: R56.9 CPT Code: 91541 HISTORY: 28 yo male with h/o seizures [...] of epilepsy remains, consider additional EEG recordings. dAán John MD Neurophysiology Fellow Joao Blum M.D., FLOR Professor of Neurology [facility] [employer] Director, [facility] Epilepsy Center Procedure Note Interface, External Ris In - 09/10/2018 3:50 PM CDT DATE OF REPORT: 09/10/2018 ACC: [id number] EE Start time: 14:47 Stop time: 15:04 ICD-10: R56.9 CPT Code: 49744 HISTORY: 28 yo male with h/o seizures [...] John MD Neurophysiology Fellow Joao Blum M.D., [facility] Professor of Neurology [facility] Director, [facility] Epilepsy [place] Performing Organization Address City/State/Zipcode Phone Number GE iDiDiD XR abdomen / KUB 1 view (09/10/2018 11:58 AM CDT) Narrative Performed At FINAL REPORT [facility] AP abdomen, three images HISTORY: Feeding tube COMPARISON: 11/01/2015 IMPRESSION: Feeding tube present with tip in abdomen. Bowel gas pattern appears grossly nonobstructive. Signed: Edgardo Guzman MD Report Verified Date/Time:09/10/2018 12:12:56 Reading Location: [address] Consult Reading Room Procedure Note Interface, External Ris In - 09/10/2018 12:15 PM CDT FINAL REPORT AP abdomen, three images HISTORY: Feeding tube COMPARISON: 11/01/2015 IMPRESSION: Feeding tube present with tip in abdomen. Bowel gas pattern appears grossly nonobstructive. Signed: Edgardo Guzman MD Report Verified Date/Time: 09/10/2018 12:12:56 Reading Location: [facility] B1 C013X Ortho Consult Reading Room Performing [...] the surrounding skin area. A triple lumen 7-Zambian Cordis catheter was introduced into the the [...] pending Procedure performed emergently. Dr. Chandler Wolfe, Watch And Clock Repair Clerk of Neurology Neurocritical Care and Vascular Neurology [facility]. Drug screen, urine, comprehensive (09/10/2018 10:20 AM CDT)Only the most recent of2 resultswithin the time period is included. Specimen Urine Narrative Performed At Blood culture #1 (09/10/2018 9:22 AM CDT)Only the most recent of2 resultswithin the time period is included. Result No growth in 5 days [facility] Specimen Blood - Central Venous Line Performing Organization Address City/[facility]/Zipcode Phone Number [address] [address] ANTHONY Sputum Culture + Gram Stain (09/10/2018 9:21 AM CDT) Result 4+ Normal respiratory [facility] Gram Stain Result 1+ gram positive rods [facility] Gram Stain Result 1+ gram negative cocci [facility] Gram Stain Result 2+ gram positive cocci in [facility] chains [facility]ICAL [facility] Gram Stain Result 1+ gram positive cocci in [facility] clusters [facility] Specimen Sputum - Endotracheal Performing Organization Address [facility] [facility] Cent[facility] Phone Number [address] [address] ANTHONY Urine culture (09/10/2018 8:44 AM CDT) Result No growth [facility] Specimen Urine - Urine, Muñoz Performing Organization Address [facility] Cent[facility] Phone Number [address] [address] [phone] CENTER aPTT (09/10/2018 8:38 AM CDT) PTT 27.5 22.5 - 36.0 seconds [facility] Specimen Blood Performing Organization Address [facility] Phone Number [address] [address] CENTER Prothrombin time/INR (09/10/2018 8:38 AM CDT) Protime 14.6 11.7 - 14.7 seconds [facility] INR 1.1 <=5.9 [facility] Specimen Blood Narrative Performed At RECOMMENDED COUMADIN/WARFARIN INR THERAPY [facility] RANGES STANDARD DOSE: 2.0 - 3.0 Includes: PROPHYLAXIS for venous thrombosis, systemic embolization; TREATMENT for venous thrombosis and/or pulmonary embolus. HIGH RISK: Target INR is 2.5-3.5 for patients with mechanical heart valves. Performing Organization Address City/[facility] [facility] Cent[facility] Phone Number [address] [address] CENTER Platelet count (09/10/2018 8:38 AM CDT) Platelets 184 150 - 450 K/CU MM [facility] Specimen Blood Performing Organization Address [facility] Phone Number [address] [address] [phone] ANTHONY Phenytoin level, total (09/10/2018 8:38 AM CDT) Phenytoin 10.8 10.0 - 20.0 ug/mL [facility] Specimen Blood Performing Organization Address [facility] Phone Number [address] [address] [phone] ANTHONY Carbamazepine level (09/10/2018 8:38 AM CDT)Only the most recent of2 resultswithin the time period is included. Carbamazepine Lvl 2.2 (L) 4.0 - 12.0 ug/mL [facility] Specimen Blood Performing Organization Address [facility] Phone Number [address] [address] AN[place] Creatine Kinase (CK) (08/13/2018 6:02 AM CDT)Only the most recent of4 resultswithin the time period is included. Total CK 1,709 (H) 29 - 200 U/L [facility] Specimen Blood - Arm, Right Performing Organization Address [facility] Phone Number [address] [address] ANTHONY EEG AWAKE AND DROWSY (08/10/2018 3:38 PM CDT) Narrative Performed At Neurophysiology Electroencephalogram Report GE RIS DATE OF REPORT: 08/10/18 Date(s) of Study: 08/10/2018 ACC: [id number] Start time: 1517 hrs Stop time: 1537 hrs ICD-10: R56.9 Unspecified Convulsions CPT Code: 58636 EEG: awake and drowsy <40 min HISTORY: [...] Shamir Najera MD, MS Clinical Neurophysiology/Epilepsy Attending [facility] Neurophysiology Service Procedure Note Interface, External Ris In - 08/10/2018 4:50 PM CDT Neurophysiology Electroencephalogram Report DATE OF REPORT: 08/10/18 Date(s) of Study: 08/10/2018 ACC: [id number] Start time: 1517 hrs Stop time: 1537 hrs ICD-10: R56.9 Unspecified Convulsions CPT Code: 26633 EEG: awake and drowsy <40 min HISTORY: [...] Shamir Najera MD, MS Clinical Neurophysiology/Epilepsy Attending [facility] Neurophysiology Service Performing Organization Address [facility] Phone Number [email or web address] ECG 12 lead (08/10/2018 4:35 AM CDT) Narrative Performed At Ventricular Rate 69 BPM GE MUSE Atrial Rate 69 BPM P-R Interval 132 ms QRS Duration 88 ms Q-T Interval 390 ms QTC Calculation(Bazett) 417 ms P Rosenhayn 14 degrees R Rosenhayn 45 degrees T Rosenhayn 16 degrees Normal sinus rhythm Normal ECG No previous ECGs available Confirmed by Javier LOPEZ BASANT ([id number]) on 08/10/2018 10:49:51 AM Procedure Note Interface, External Ris In - 08/10/2018 10:49 AM CDT Ventricular Rate 69 BPM Atrial Rate 69 BPM P-R Interval 132 ms QRS Duration 88 ms Q-T Interval 390 ms QTC Calculation(Bazett) 417 ms P Rosenhayn 14 degrees R Rosenhayn 45 degrees T Rosenhayn 16 degrees Normal sinus rhythm Normal ECG No previous ECGs available Confirmed by Javier LOPEZ BASANT ([id number]) on 08/10/2018 10:49:51 AM Performing Organization Address [facility] Phone Number Tymphany Urinalysis w/ Microscopic (08/10/2018 4:29 AM CDT) Color, UA Yellow [facility] Clarity, UA Clear [facility] Specific [place], UA 1.011 1.001 - 1.035 [facility] pH, UA 7.0 5.0 - 8.0 [facility] Protein, UA Negative Negative [facility] Glucose, UA Negative Negative [facility] Ketones, UA Negative Negative [facility] Bilirubin, UA Negative Negative [facility] Blood, UA Negative Negative [facility] Nitrite, UA Negative Negative [facility] Leukocytes, UA Negative Negative [facility] Urobilinogen, UA 2.0 (H) 0.2 - 1.0 mg/dL [facility] RBC, UA <1 /HPF [facility] WBC, UA 0 /HPF [facility] Specimen Source [facility] Specimen Urine Performing Organization Address City/[facility]/Zipcode Phone Number [address] [address] ANTHONY C-Reactive Protein (08/10/2018 1:55 AM CDT) CRP 0.45 0.00 - 0.50 mg/dL [facility] Specimen Blood Performing Organization Address City/[facility]/Zipcode Phone Number [address] [address] [phone] ANTHONY Lactic acid, venous, whole blood (08/10/2018 1:55 AM CDT) Lactate, Venous 1.0Comment: Specimen 0.5 - 2.2 mmol/L [facility] slightly hemolyzed [facility] Specimen Blood Narrative Performed At [facility] Effective 03/18/2016: Units/Reference Range Change New: 0.5-2.2 mmol/LPrevious: 5-20 mg/dL Performing Organization Address City/[facility]/Zipcode Phone Number [facility] [address] [place] [address] CENTER Lamotrigine level (08/10/2018 1:55 AM CDT) Lamotrigine 5.6 4.0 - 18.0 mcg/mL [facility] Comment: INC[facility]PORATED This test was developed and its analytical performance characteristics have been determined by [facility]. It has not been cleared or approved by the US Food and Drug Administration. This assay has been validated pursuant to the CLIA regulations and is used for clinical purposes. Specimen Blood Narrative Performed At Performing Lab [facility] *[facility] [employer] [facility], [address] [place] [phone] Jhonny Stanley MD, PhD Performing Organization Address [facility] [place] [address] [address] [place] [address] Hepatic function panel (08/10/2018 1:55 AM CDT) Protein, Total 6.5 6.0 - 8.3 gm/dL [facility] Albumin 3.9 3.5 - 5.0 g/dL [facility] Total Bilirubin 0.8 0.2 - 1.2 mg/dL [facility] Bilirubin, Direct 0.3 0.1 - 0.5 mg/dL [facility] Alkaline Phosphatase 85 40 - 150 U/L [facility] AST 43 (H) 5 - 34 U/L [facility] ALT 33 6 - 55 U/L [facility] Specimen Blood Performing Organization Address [facility]/Zipcode Phone Number [facility] [address] [place] [address] CENTER POCT-HEMATOCRIT (08/10/2018 1:41 AM CDT) POC-Hematocrit 35 (L)Comment: TESTED AT 40 - 50 % [address] [address] Specimen Blood Performing Organization Address City/[facility]/Zipcode Phone Number [address] [phone] CENTER POCT-HEMOGLOBIN (08/10/2018 1:41 AM CDT) POC-Hemoglobin 11.9 (L)Comment: TESTED AT 13.0 - 16.8 g/dL [address] [place] [id number] AT [address] [address] Specimen Blood Performing Organization Address [facility]/[place] [facility] Cent[facility] Phone Number [address] [phone] CENTER POCT-GLUCOSE (08/10/2018 1:41 AM CDT) POC-Glucose 105Comment: TESTED AT [facility] 70 - 110 mg/dL [address] [address] Specimen Blood Performing Organization Address [facility] [facility] Phone Number [address] [address] [phone] ANTHONY POC-Sodium (08/10/2018 1:41 AM CDT) POC-Sodium 140Comment: TESTED AT [facility] 135 - 148 meq/L [address] [address] Specimen Blood Performing Organization Address City/[facility]/Zipcode Phone Number [address] [address] CENTER POC-Potassium (08/10/2018 1:41 AM CDT) POC-Potassium 3.4 (L)Comment: TESTED AT 3.6 - 5.5 meq/L [address] [address] Specimen Blood Performing Organization Address City/[facility]/Zipcode Phone Number [address] [address] [phone] ANTHONY POC-Calcium ionized (08/10/2018 1:41 AM CDT) POC-Calcium Ionized 1.15Comment: TESTED AT 1.12 - 1.27 mmol/L [address] [address] Specimen Blood Performing Organization Address [facility]/[place] [facility] Cent[facility]ode Phone Number [address] [phone] ANTHONY POC-Blood gases, arterial (08/10/2018 1:41 AM CDT) Temp. Celsius-POC 37.0 [facility] FIO2-POC Comment: TESTED AT [address] [address] pH, Arterial-POC 7.396 7.350 - 7.450 [facility] PCO2, Arterial-POC 35.3 35.0 - 45.0 mm Hg [facility] PO2, Arterial-POC 104.0 (H) 80.0 - 90.0 mm Hg [facility] SO2, Arterial-POC 98.0 (H) 96.0 - 97.0 % [facility] HCO3, Arterilal-POC 21.7 21.0 - 29.0 meq/L [facility] BE, Arterial-POC -3.0 (L) -2.0 - 3.0 meq/L [facility] Specimen Blood Performing Organization Address City/[facility]/[place] [facility] Cent[facility]ode Phone Number [address] [address] [phone] ANTHONY POC-Lactic Acid, Arterial (08/10/2018 1:35 AM CDT) POC-Lactic Acid, 0.9Comment: TESTED AT 0.4 - 1.3 mmol/L [facility] Arterial [address] [place] [address] Specimen Blood Performing Organization Address City/[facility]/Zipcode Phone Number [facility] [address] [place] [address] CENTER after 11/23/2017 Insurance Payer Benefit Plan / Subscriber ID Type Phone Address Group BLUE CROSS/BLUE BCBS PPO POS EPO xxxxxxxxxxxx PPO [phone] [address] [place] [address] Advance Directives For more information, please contact:[facility] [place], [place] [phone] Code Status Date Activated Date Inactivated Comments Full Code 09/10/2018 7:22 AM This code status was determined by: Patient Full Code 08/10/2018 1:35 AM 08/13/2018 8:26 PM This code status was determined by: Patient
--- OUTSIDE RECORDS SUMMARY | 2018-11-24 00:26 | XMS REPORT ---
:1990 [facility] [address] [place] [address] Care Team Providers Name Role Phone CARSON [...] Value Reference Range Comments CULTURE (BEAKER) (test wncd=8219) No growth in 5 days BLOOD [id number] 18:00:00 Test Item Value Reference Range Comments CULTURE (BEAKER) (test aixl=9166) No growth in 5 days SPUTUM CULTURE + GRAM [id number] 14:21:00 Test Item Value Reference Range Comments CULTURE (BEAKER) (test 4+ Normal respiratory beatrice vwug=6377) present GRAM STAIN RESULT (BEAKER) 1+ gram positive rods (test avcs=0629) GRAM STAIN RESULT (BEAKER) 1+ gram negative cocci (test qkoo=00184) GRAM STAIN RESULT (BEAKER) 2+ gram positive cocci in chains (test vyan=41060) GRAM STAIN RESULT (BEAKER) 1+ gram positive cocci in (test gpia=005755) clusters RAD, CHEST, 1 VIEW, NON [id number] 07:27:00Reason for exam:->post intubationShould this be performed [...] Verified Date/Time: 09/13/2018 07:27 :51 Reading Location: [facility] Radiology Reading Room [id number] 04:44:00 Test Item Value Reference Range Comments PHOSPHORUS (BEAKER) (test xnyr=684) 2.9 mg/dL 2.3-4.7 Check Serum Phosphorus level 4 hours after IV phosphorus replacement or 8 hours after PO replacementcompleted.[id number] 04:44:00 Test Item Value Reference Range Comments MAGNESIUM (BEAKER) (test mllp=490) 2.2 mg/dL 1.6-2.6 Check Serum Phosphorus level 4 hours after IV phosphorus replacement or 8 hours after PO replacementcompleted.BASIC METABOLIC [id number] 04:44:00 Test Item Value Reference Range Comments SODIUM (BEAKER) (test 142 meq/L 136-145 rlmj=842) POTASSIUM (BEAKER) (test 3.6 meq/L 3.5-5.1 mivs=868) CHLORIDE (BEAKER) (test 114 meq/L 98-107 iebg=821) CO2 (BEAKER) (test 22 meq/L 22-29 hjzf=690) BLOOD UREA NITROGEN 8 mg/dL 7-21 (BEAKER) (test lgif=274) CREATININE (BEAKER) (test 0.68 mg/dL 0.57-1.25 rano=031) GLUCOSE RANDOM (BEAKER) 109 mg/dL 70-105 (test vqeq=584) CALCIUM (BEAKER) (test 8.4 mg/dL 8.4-10.2 vjpu=840) EGFR (BEAKER) (test 137 mL/min/1.73 sq m ESTIMATED GFR IS NOT jbpt=6705) ACCURATE CREATININE CLEARANCE IN PREDICTING GLOMERULAR FILTRATION RATE. ESTIMATED GFR IS NOT APPLICABLE FOR DIALYSIS PATIENTS. Check Serum Phosphorus level 4 hours after IV phosphorus replacement or 8 hours after PO replacementcompleted.CBC W/PLT COUNT & AUTO [id number] 04:19:00 Test Item Value Reference Range Comments WHITE BLOOD CELL COUNT (BEAKER) (test spcm=979) 6.1 K/ L 3.5-10.5 RED BLOOD CELL COUNT (BEAKER) (test vtth=312) 3.85 M/ L 4.63-6.08 HEMOGLOBIN (BEAKER) (test yfef=166) 11.4 GM/DL 13.7-17.5 HEMATOCRIT (BEAKER) (test obfm=254) 35.1 % 40.1-51.0 MEAN CORPUSCULAR VOLUME (BEAKER) (test jwmb=494) 91.2 fL 79.0-92.2 MEAN CORPUSCULAR HEMOGLOBIN (BEAKER) (test 29.6 pg 25.7-32.2 jwgq=492) MEAN CORPUSCULAR HEMOGLOBIN CONC (BEAKER) (test 32.5 GM/DL 32.3-36.5 jqve=635) RED CELL DISTRIBUTION WIDTH (BEAKER) (test 13.7 % 11.6-14.4 plld=836) PLATELET COUNT (BEAKER) (test pkxq=952) 162 K/CU MM 150-450 MEAN PLATELET VOLUME (BEAKER) (test tqqq=227) 10.4 fL 9.4-12.4 NUCLEATED RED BLOOD CELLS (BEAKER) (test 0 /100 WBC 0-0 vrnc=445) NEUTROPHILS RELATIVE PERCENT (BEAKER) (test 58 % gaif=627) LYMPHOCYTES RELATIVE PERCENT (BEAKER) (test 32 % mtuw=511) MONOCYTES RELATIVE PERCENT (BEAKER) (test 9 % cnkj=614) EOSINOPHILS RELATIVE PERCENT (BEAKER) (test 1 % zfuu=234) BASOPHILS RELATIVE PERCENT (BEAKER) (test 0 % lulu=076) NEUTROPHILS ABSOLUTE COUNT (BEAKER) (test 3.54 K/ L 1.78-5.38 pecw=290) LYMPHOCYTES ABSOLUTE COUNT (BEAKER) (test 1.93 K/ L 1.32-3.57 dsnp=111) MONOCYTES ABSOLUTE COUNT (BEAKER) (test 0.52 K/ L 0.30-0.82 utwz=450) EOSINOPHILS ABSOLUTE COUNT (BEAKER) (test 0.07 K/ L 0.04-0.54 bfzn=320) BASOPHILS ABSOLUTE COUNT (BEAKER) (test 0.02 K/ L 0.01-0.08 aoza=444) IMMATURE GRANULOCYTES-RELATIVE PERCENT (BEAKER) 0 % 0-1 (test tykh=7983) [id number] 18:41:00 Test Item Value Reference Range Comments POTASSIUM (MAXIMINO) (test zgog=784) 3.9 meq/L 3.5-5.1 Check Serum Potassium level 2 hours after oral potassium replacement completed or 30 min after intravenous potassium replacement.[id number] 18:41:00 Test Item Value Reference Range Comments MAGNESIUM (MAXIMINO) (test mrlz=407) 2.9 mg/dL 1.6-2.6 Check Serum Potassium level 2 hours after oral potassium replacement completed or 30 min after intravenous potassium replacement.EEG MONITORING WITH VIDEO RECORDING EACH 24 [id number] 14:34:00billing for 09/12 AMDATE OF REPORT: ACC: [id number] EE Start time: 09/11 at 0920 AM Stop time: 09/12 at 11:11 AM ICD-10: R56.9 CPT Code: 08550 HISTORY: 28 year old male p/w increased [...] Fellow Davis Cintron MD, PhD Attending Neurophysiologist [facility] [place] [id number] 12:15:00 Test Item Value Reference Range Comments MAGNESIUM (BEAKER) (test uvkl=417) 1.9 mg/dL 1.6-2.6 Check Serum Phosphorus level 4 hours after IV phosphorus replacement or 8 hours after PO replacementcompleted.Check Serum Potassium level 2 hours after oral potassium replacement completed or 30 min after intravenous potassium replacement.[id number] 12:15:00 Test Item Value Reference Range Comments PHOSPHORUS (BEAKER) (test lxyz=174) 2.0 mg/dL 2.3-4.7 Check Serum Phosphorus level 4 hours after IV phosphorus replacement or 8 hours after PO replacementcompleted.Check Serum Potassium level 2 hours after oral potassium replacement completed or 30 min after intravenous potassium replacement.[id number] 12:14:00 Test Item Value Reference Range Comments POTASSIUM (BEAKER) (test eutv=656) 3.6 meq/L 3.5-5.1 Check Serum Phosphorus level 4 hours after IV phosphorus replacement or 8 hours after PO replacementcompleted.Check Serum Potassium level 2 hours after oral potassium replacement completed or 30 min after intravenous potassium replacement.CALCIUM, [id number] 11:49:00 Test Item Value Reference Range Comments CALCIUM IONIZED (BEAKER) (test ulco=516) 1.09 mmol/L 1.12-1.27 PH, BLOOD (BEAKER) (test pdqt=1849) 7.46 Check serum Ionized Calcium level after 4 hours after IV Calcium replacement.URINE [id number] 08:18:00 Test Item Value Reference Range Comments CULTURE (BEAKER) (test kkab=5456) No growth [id number] 03:59:00 Test Item Value Reference Range Comments PHOSPHORUS (BEAKER) (test ezyr=083) 2.5 mg/dL 2.3-4.7 Check Serum Phosphorus level 4 hours after IV phosphorus replacement or 8 hours after PO replacementcompleted.[id number] 03:59:00 Test Item Value Reference Range Comments MAGNESIUM (BEAKER) (test ygtt=432) 2.1 mg/dL 1.6-2.6 Check Serum Phosphorus level 4 hours after IV phosphorus replacement or 8 hours after PO replacementcompleted.BASIC METABOLIC [id number] 03:59:00 Test Item Value Reference Range Comments SODIUM (BEAKER) (test 143 meq/L 136-145 vrxv=199) POTASSIUM (BEAKER) (test 3.3 meq/L 3.5-5.1 owrn=630) CHLORIDE (BEAKER) (test 112 meq/L 98-107 apgk=344) CO2 (BEAKER) (test 25 meq/L 22-29 qgwd=613) BLOOD UREA NITROGEN 5 mg/dL 7-21 (BEAKER) (test rvst=642) CREATININE (BEAKER) (test 0.65 mg/dL 0.57-1.25 qhjw=635) GLUCOSE RANDOM (BEAKER) 92 mg/dL 70-105 (test xknw=523) CALCIUM (BEAKER) (test 8.4 mg/dL 8.4-10.2 unsg=967) EGFR (BEAKER) (test 144 mL/min/1.73 sq m ESTIMATED GFR IS NOT nbiz=7004) ACCURATE CREATININE CLEARANCE IN PREDICTING GLOMERULAR FILTRATION RATE. ESTIMATED GFR IS NOT APPLICABLE FOR DIALYSIS PATIENTS. Check Serum Phosphorus level 4 hours after IV phosphorus replacement or 8 hours after PO replacementcompleted.CBC W/PLT COUNT & AUTO [id number] 03:41:00 Test Item Value Reference Range Comments WHITE BLOOD CELL COUNT (BEAKER) (test owmb=284) 8.0 K/ L 3.5-10.5 RED BLOOD CELL COUNT (BEAKER) (test uchs=217) 3.69 M/ L 4.63-6.08 HEMOGLOBIN (BEAKER) (test gafl=456) 11.0 GM/DL 13.7-17.5 HEMATOCRIT (BEAKER) (test pxtg=178) 33.5 % 40.1-51.0 MEAN CORPUSCULAR VOLUME (BEAKER) (test msyj=939) 90.8 fL 79.0-92.2 MEAN CORPUSCULAR HEMOGLOBIN (BEAKER) (test 29.8 pg 25.7-32.2 cszs=935) MEAN CORPUSCULAR HEMOGLOBIN CONC (BEAKER) (test 32.8 GM/DL 32.3-36.5 bqfm=173) RED CELL DISTRIBUTION WIDTH (BEAKER) (test 13.5 % 11.6-14.4 kyna=408) PLATELET COUNT (BEAKER) (test tckf=437) 153 K/CU MM 150-450 MEAN PLATELET VOLUME (BEAKER) (test yste=781) 10.5 fL 9.4-12.4 NUCLEATED RED BLOOD CELLS (BEAKER) (test 0 /100 WBC 0-0 slsk=126) NEUTROPHILS RELATIVE PERCENT (BEAKER) (test 62 % acvs=119) LYMPHOCYTES RELATIVE PERCENT (BEAKER) (test 29 % ylsh=378) MONOCYTES RELATIVE PERCENT (BEAKER) (test 8 % mhrm=226) EOSINOPHILS RELATIVE PERCENT (BEAKER) (test 1 % lvbi=652) BASOPHILS RELATIVE PERCENT (BEAKER) (test 0 % qhep=206) NEUTROPHILS ABSOLUTE COUNT (BEAKER) (test 4.92 K/ L 1.78-5.38 psez=643) LYMPHOCYTES ABSOLUTE COUNT (BEAKER) (test 2.31 K/ L 1.32-3.57 dntg=725) MONOCYTES ABSOLUTE COUNT (BEAKER) (test 0.65 K/ L 0.30-0.82 tgwc=398) EOSINOPHILS ABSOLUTE COUNT (BEAKER) (test 0.06 K/ L 0.04-0.54 rdvn=776) BASOPHILS ABSOLUTE COUNT (BEAKER) (test 0.02 K/ L 0.01-0.08 kgzx=132) IMMATURE GRANULOCYTES-RELATIVE PERCENT (BEAKER) 0 % 0-1 (test kksi=7702) POCT-GLUCOSE [id number] 23:55:00 Test Item Value Reference Range Comments POC-GLUCOSE METER (BEAKER) 94 mg/dL 70-[address] [facility] [address] [place] [address] (test vzxq=2242) [facility] [address] [id number] 18:08:00 Test Item Value Reference Range Comments POTASSIUM (BEAKER) (test namh=384) 3.4 meq/L 3.5-5.1 Check Serum Potassium level 2 hours after oral potassium replacement completed or 30 min after intravenous potassium replacement.EEG MONITORING WITH VIDEO RECORDING EACH 24 [id number] 09:23:00DATE OF REPORT: 09/11/2018ACC: [id number]: Start time: 09/10 at 15:05Stop time: 09/11 at 09:20 AMICD-10 : R56.9CPT Code: 65549 HISTORY: 28 yo male with h/o seizures [...] MDNeurophysiology Fellow Joao Blum M.D., FACNSProfessor of NeurologyKaiser Permanente San Francisco Medical CenterDirector, [facility] Epilepsy [facility] Electronically signed by:JOAO BLUM on 2017 09:23 AMRAD, CHEST, 1 VIEW, NON [id number] 07:32:00Reason for exam:-&gt ;post intubationShould this be [...] is magnified by technique. Signed: Kody Vuong [facility] Verified Date/Time: 09/11/2018 07:32: 46 Reading Location: [facility] B1 C013V Neuro Reading Room POCT-GLUCOSE [id number] 06: 30:00 Test Item Value Reference Range Comments POC-GLUCOSE METER (BEAKER) 111 mg/dL 70-[address] [facility] [address] [facility] (test megm=7941) [facility] [address] BASIC METABOLIC [id number] 06:06:00 Test Item Value Reference Range Comments SODIUM (BEAKER) (test 138 meq/L 136-145 mcop=418) POTASSIUM (BEAKER) (test 3.4 meq/L 3.5-5.1 hyul=187) CHLORIDE (BEAKER) (test 110 meq/L 98-107 qopl=258) CO2 (BEAKER) (test 20 meq/L 22-29 yrga=423) BLOOD UREA NITROGEN 8 mg/dL 7-21 (BEAKER) (test bpvu=656) CREATININE (BEAKER) (test 0.70 mg/dL 0.57-1.25 ceng=391) GLUCOSE RANDOM (BEAKER) 107 mg/dL 70-105 (test mygr=035) CALCIUM (BEAKER) (test 8.4 mg/dL 8.4-10.2 wyqj=705) EGFR (BEAKER) (test 132 mL/min/1.73 sq m ESTIMATED GFR IS NOT ragi=2948) ACCURATE CREATININE CLEARANCE IN PREDICTING GLOMERULAR FILTRATION RATE. ESTIMATED GFR IS NOT APPLICABLE FOR DIALYSIS PATIENTS. CBC W/PLT COUNT & AUTO [id number] 03:47:00 Test Item Value Reference Range Comments WHITE BLOOD CELL COUNT (BEAKER) (test tqxx=973) 7.9 K/ L 3.5-10.5 RED BLOOD CELL COUNT (BEAKER) (test dhjk=433) 3.85 M/ L 4.63-6.08 HEMOGLOBIN (BEAKER) (test hmei=556) 11.4 GM/DL 13.7-17.5 HEMATOCRIT (BEAKER) (test bnkh=778) 34.7 % 40.1-51.0 MEAN CORPUSCULAR VOLUME (BEAKER) (test kutk=307) 90.1 fL 79.0-92.2 MEAN CORPUSCULAR HEMOGLOBIN (BEAKER) (test 29.6 pg 25.7-32.2 hdpj=705) MEAN CORPUSCULAR HEMOGLOBIN CONC (BEAKER) (test 32.9 GM/DL 32.3-36.5 vass=343) RED CELL DISTRIBUTION WIDTH (BEAKER) (test 14.2 % 11.6-14.4 iylf=233) PLATELET COUNT (BEAKER) (test gudi=186) 163 K/CU MM 150-450 MEAN PLATELET VOLUME (BEAKER) (test vooh=798) 10.3 fL 9.4-12.4 NUCLEATED RED BLOOD CELLS (BEAKER) (test 0 /100 WBC 0-0 kzev=727) NEUTROPHILS RELATIVE PERCENT (BEAKER) (test 68 % zfda=087) LYMPHOCYTES RELATIVE PERCENT (BEAKER) (test 23 % uuho=331) MONOCYTES RELATIVE PERCENT (BEAKER) (test 8 % uvxz=505) EOSINOPHILS RELATIVE PERCENT (BEAKER) (test 0 % jfuq=045) BASOPHILS RELATIVE PERCENT (BEAKER) (test 0 % loht=522) NEUTROPHILS ABSOLUTE COUNT (BEAKER) (test 5.41 K/ L 1.78-5.38 cfpy=160) LYMPHOCYTES ABSOLUTE COUNT (BEAKER) (test 1.79 K/ L 1.32-3.57 gbqf=637) MONOCYTES ABSOLUTE COUNT (BEAKER) (test 0.67 K/ L 0.30-0.82 bppl=553) EOSINOPHILS ABSOLUTE COUNT (BEAKER) (test 0.02 K/ L 0.04-0.54 rkaw=349) BASOPHILS ABSOLUTE COUNT (BEAKER) (test 0.03 K/ L 0.01-0.08 ltyc=099) IMMATURE GRANULOCYTES-RELATIVE PERCENT (BEAKER) 0 % 0-1 (test qosm=0665) BLOOD GAS, [id number] 03:32:00 Test Item Value Reference Range Comments PH ARTERIAL (BEAKER) (test upne=989) 7.38 7.35-7.45 PCO2 ARTERIAL (BEAKER) (test cdoz=025) 42 mmHg 35-45 PO2 ARTERIAL (BEAKER) (test ubgs=200) 120 mmHg 80-90 O2 SATURATION ARTERIAL (BEAKER) (test rrtg=093) 98.3 % 96.0-97.0 HCO3 ARTERIAL (BEAKER) (test iitp=646) 24 mmol/L 21-29 BASE EXCESS ARTERIAL (BEAKER) (test dsgv=946) -0.8 mmol/L -2.0-3.0 PATIENT TEMPERATURE (BEAKER) (test twla=5127) 37.0 C FIO2 (BEAKER) (test sxio=7998) 40.0 % POCT-GLUCOSE [id number] 01:01:00 Test Item Value Reference Range Comments POC-GLUCOSE METER (BEAKER) 91 mg/dL 70-[address] [facility] [address] [facility] (test sexy=9035) [facility] [address] TROPONIN [id number] 17:18:00 Test Item Value Reference Range Comments TROPONIN I (BEAKER) (test qzgx=247) < ng/mL 0.00-0.03 Troponin I (TnI) levels [...] neurological disease, and persistent tachyarrhythmia.EEG AWAKE AND [id number] 15:50: 00Reason for exam:->Status epilepticus, c EEG for evaluation of subclinical seizures Should this beperformed at the bedside?->YesDATE OF REPORT: 2017ACC: [id number]: [id number] time: 14:47Stop time: 15:04ICD-10: R56.9CPTCode: 55476 HISTORY: 28 yo male with h/o seizures [...] MDNeurophysiology Fellow Joao Blum M.D., FACNSProfessor of NeurologyKaiser Permanente San Francisco Medical CenterDirector, [facility] Epilepsy [place] BLOOD GAS, [id number] 12:32:00 Test Item Value Reference Range Comments PH ARTERIAL (BEAKER) (test svap=085) 7.37 7.35-7.45 PCO2 ARTERIAL (BEAKER) (test gebt=760) 38 mmHg 35-45 PO2 ARTERIAL (BEAKER) (test kmmm=991) 208 mmHg 80-90 O2 SATURATION ARTERIAL (BEAKER) (test ulke=764) 99.4 % 96.0-97.0 HCO3 ARTERIAL (BEAKER) (test gchn=949) 21 mmol/L 21-29 BASE EXCESS ARTERIAL (BEAKER) (test uppl=135) -3.4 mmol/L -2.0-3.0 PATIENT TEMPERATURE (BEAKER) (test tkak=6022) 37.1 C FIO2 (BEAKER) (test aauk=0451) 40.0 % RAD, ABDOMEN/KUB, 1 VIEW [id number] 12:12:00Reason for exam:->corpakShould this be performed at the bedside?->YesFINAL REPORT AP abdomen, three images HISTORY: Feeding tube COMPARISON: 11/01/2015 IMPRESSION: Feeding tube present with tip in abdomen. Bowel gas pattern appears grossly nonobstructive. Signed: Edgardo Guzman MDReport Verified Date/Time: 2017 12:12:56 Reading Location: [address] Consult Reading Room RAD , CHEST, 1 VIEW, NON [id number] 10:40:00Reason for exam:->post intubationShould this be performed at the bedside?->YesFINAL REPORT AP chest HISTORY: Intubation COMPARISON: None IMPRESSION: Endotracheal tube in satisfactory position. Right IJ central venous catheter at mid SVC. Heart size normal. Mild perihilar atelectasis. Lungs otherwise clear. No pneumothorax. Signed: Edgardo Guzman MDReport Verified Date/Time: 2017 10:40:47 Reading Location: [facility] B1 C013X Ortho Consult Reading Room TROPONIN [id number] 09:21:00 Test Item Value Reference Range Comments TROPONIN I (BEAKER) (test lmlv=162) < ng/mL 0.00-0.03 Troponin I (TnI) levels [...] failure, acidosis, acute neurological disease, and persistent tachyarrhythmia.[id number] 09:19:00 Test Item Value Reference Range Comments CARBAMAZEPINE LEVEL (BEAKER) (test xcey=820) 2.2 ug/mL 4.0-12.0 PHENYTOIN LEVEL, [id number] 09:18:00 Test Item Value Reference Range Comments PHENYTOIN (DILANTIN) (BEAKER) (test pwdx=570) 10.8 ug/mL 10.0-20.0 [id number] 09:03:00 Test Item Value Reference Range Comments PARTIAL THROMBOPLASTIN TIME (BEAKER) (test 27.5 seconds 22.5-36.0 yigi=935) PROTHROMBIN TIME/[id number] 09:02:00 Test Item Value Reference Range Comments PROTIME (BEAKER) (test qxbh=563) 14.6 seconds 11.7-14.7 INR (BEAKER) (test opxn=435) 1.1 <=5.9 RECOMMENDED COUMADIN/WARFARIN INR THERAPY RANGESSTANDARD DOSE: 2.0 - 3.0 Includes: PROPHYLAXIS forvenous thrombosis, systemic embolization; TREATMENT for venous thrombosis and/or pulmonary embolus.HIGH RISK: Target INR is 2.5-3.5 for patients with mechanical heart valves.PLATELET [id number] 08:53:00 Test Item Value Reference Range Comments PLATELET COUNT (BEAKER) (test ejag=823) 184 K/CU MM 150-450 BASIC METABOLIC [id number] 07:07:00 Test Item Value Reference Range Comments SODIUM (BEAKER) (test 140 meq/L 136-145 pkqo=251) POTASSIUM (BEAKER) (test 4.0 meq/L 3.5-5.1 ejup=889) CHLORIDE (BEAKER) (test 115 meq/L 98-107 bdcy=877) CO2 (BEAKER) (test 20 meq/L 22-29 kxyy=098) BLOOD UREA NITROGEN 7 mg/dL 7-21 (BEAKER) (test obdf=863) CREATININE (BEAKER) (test 0.83 mg/dL 0.57-1.25 ruxn=870) GLUCOSE RANDOM (BEAKER) 95 mg/dL 70-105 (test iiqz=510) CALCIUM (BEAKER) (test 8.6 mg/dL 8.4-10.2 nrtg=765) EGFR (BEAKER) (test 109 mL/min/1.73 sq m ESTIMATED GFR IS NOT oqdf=6286) ACCURATE CREATININE CLEARANCE IN PREDICTING GLOMERULAR FILTRATION RATE. ESTIMATED GFR IS NOT APPLICABLE FOR DIALYSIS PATIENTS. CREATINE KINASE (CK)2018-08-13 07:07:00 Test Item Value Reference Range Comments CREATINE KINASE TOTAL (BEAKER) (test ybav=308) 1709 U/L 29-200 BASIC METABOLIC [id number] 05:19:00 Test Item Value Reference Range Comments SODIUM (BEAKER) (test 141 meq/L 136-145 gcmf=469) POTASSIUM (BEAKER) (test 4.1 meq/L 3.5-5.1 vbdy=100) CHLORIDE (BEAKER) (test 117 meq/L 98-107 vhiq=508) CO2 (BEAKER) (test 19 meq/L 22-29 ehzm=292) BLOOD UREA NITROGEN 11 mg/dL 7-21 (BEAKER) (test cbuw=096) CREATININE (BEAKER) (test 0.84 mg/dL 0.57-1.25 mmry=309) GLUCOSE RANDOM (BEAKER) 97 mg/dL 70-105 (test iyzj=241) CALCIUM (BEAKER) (test 8.8 mg/dL 8.4-10.2 skdp=027) EGFR (BEAKER) (test 107 mL/min/1.73 sq m ESTIMATED GFR IS NOT bnuc=7278) ACCURATE CREATININE CLEARANCE IN PREDICTING GLOMERULAR FILTRATION RATE. ESTIMATED GFR IS NOT APPLICABLE FOR DIALYSIS PATIENTS. CREATINE KINASE (CK)2018-08-12 05:19:00 Test Item Value Reference Range Comments CREATINE KINASE TOTAL (BEAKER) (test adbr=283) 1766 U/L 29-200 POCT-GLUCOSE [id number] 17:02:00 Test Item Value Reference Range Comments POC-GLUCOSE METER (BEAKER) 93 mg/dL 70-[address] [facility] [address] [facility] (test dncb=3633) [facility] [address] [id number] 04:54:00 Test Item Value Reference Range Comments MAGNESIUM (BEAKER) (test zrop=147) 2.1 mg/dL 1.6-2.6 BASIC METABOLIC [id number] 04:54:00 Test Item Value Reference Range Comments SODIUM (BEAKER) (test 142 meq/L 136-145 rnwt=918) POTASSIUM (BEAKER) (test 4.4 meq/L 3.5-5.1 isrc=332) CHLORIDE (BEAKER) (test 116 meq/L 98-107 jqom=437) CO2 (BEAKER) (test 22 meq/L 22-29 nwjx=710) BLOOD UREA NITROGEN 8 mg/dL 7-21 (BEAKER) (test rpyh=809) CREATININE (BEAKER) (test 0.84 mg/dL 0.57-1.25 labv=949) GLUCOSE RANDOM (BEAKER) 88 mg/dL 70-105 (test pqxm=989) CALCIUM (BEAKER) (test 9.0 mg/dL 8.4-10.2 xzqq=711) EGFR (BEAKER) (test 107 mL/min/1.73 sq m ESTIMATED GFR IS NOT vinx=1403) ACCURATE CREATININE CLEARANCE IN PREDICTING GLOMERULAR FILTRATION RATE. ESTIMATED GFR IS NOT APPLICABLE FOR DIALYSIS PATIENTS. CREATINE KINASE (CK)2018-08-11 04:54:00 Test Item Value Reference Range Comments CREATINE KINASE TOTAL (BEAKER) (test olfp=084) 2031 U/L 29-200 EEG AWAKE AND [id number] 16:50:00Reason for exam:->seizure disorderNeurophysiology Electroencephalogram Report DATE OF REPORT: 08/10/18Date( s) of Study: 08/10/2018ACC: [id number]: [id number] time: 1517 hrsStop time: 1537 hrsICD-10: R56.9 Unspecified ConvulsionsCPT Code: 38659 EEG: awake and drowsy <40 min HISTORY: [...] [facility] Neurophysiology Service URINALYSIS W/ [id number] 05: 20:00 Test Item Value Reference Range Comments COLOR (BEAKER) (test sfdz=678) Yellow CLARITY (BEAKER) (test gkyf=045) Clear SPECIFIC GRAVITY UA (BEAKER) (test qkmp=223) 1.011 1.001-1.035 PH UA (BEAKER) (test vmvg=859) 7.0 5.0-8.0 PROTEIN UA (BEAKER) (test qwsn=337) Negative Negative GLUCOSE UA (BEAKER) (test szlb=034) Negative Negative KETONES UA (BEAKER) (test rjlh=467) Negative Negative BILIRUBIN UA (BEAKER) (test upjy=333) Negative Negative BLOOD UA (BEAKER) (test jyre=734) Negative Negative NITRITE UA (BEAKER) (test wgqh=035) Negative Negative LEUKOCYTE ESTERASE UA (BEAKER) (test wyjf=597) Negative Negative UROBILINOGEN UA (BEAKER) (test ocgo=213) 2.0 mg/dL 0.2-1.0 RBC UA (BEAKER) (test pqnm=270) < /HPF WBC UA (BEAKER) (test iplq=006) 0 /HPF SOURCE(BEAKER) (test swym=1740) [id number] 03:17:00 Test Item Value Reference Range Comments CARBAMAZEPINE LEVEL (BEAKER) (test smah=449) < ug/mL 4.0-12.0 [id number] 02:33:00 Test Item Value Reference Range Comments PHOSPHORUS (BEAKER) (test wyal=340) 2.8 mg/dL 2.3-4.7 [id number] 02:33:00 Test Item Value Reference Range Comments MAGNESIUM (BEAKER) (test xqxh=424) 2.2 mg/dL 1.6-2.6 BASIC METABOLIC [id number] 02:33:00 Test Item Value Reference Range Comments SODIUM (BEAKER) (test 138 meq/L 136-145 hsxt=959) POTASSIUM (BEAKER) (test 3.4 meq/L 3.5-5.1 zlss=247) CHLORIDE (BEAKER) (test 109 meq/L 98-107 ybuv=916) CO2 (BEAKER) (test 21 meq/L 22-29 bihp=519) BLOOD UREA NITROGEN 16 mg/dL 7-21 (BEAKER) (test dhcc=349) CREATININE (BEAKER) (test 0.83 mg/dL 0.57-1.25 glff=442) GLUCOSE RANDOM (BEAKER) 105 mg/dL 70-105 (test wkis=308) CALCIUM (BEAKER) (test 8.7 mg/dL 8.4-10.2 ztvj=365) EGFR (BEAKER) (test 109 mL/min/1.73 sq m ESTIMATED GFR IS NOT qxxg=0043) ACCURATE CREATININE CLEARANCE IN PREDICTING GLOMERULAR FILTRATION RATE. ESTIMATED GFR IS NOT APPLICABLE FOR DIALYSIS PATIENTS. HEPATIC FUNCTION [id number] 02:33:00 Test Item Value Reference Range Comments TOTAL PROTEIN (BEAKER) (test sqxv=342) 6.5 gm/dL 6.0-8.3 ALBUMIN (BEAKER) (test uyqv=7239) 3.9 g/dL 3.5-5.0 BILIRUBIN TOTAL (BEAKER) (test fluo=288) 0.8 mg/dL 0.2-1.2 BILIRUBIN DIRECT (BEAKER) (test vdlv=109) 0.3 mg/dL 0.1-0.5 ALKALINE PHOSPHATASE (BEAKER) (test aoln=941) 85 U/L 40-150 AST (SGOT) (BEAKER) (test nlax=067) 43 U/L 5-34 ALT (SGPT) (BEAKER) (test muiy=472) 33 U/L 6-55 CREATINE KINASE (CK)2018-08-10 02:33:00 Test Item Value Reference Range Comments CREATINE KINASE TOTAL (BEAKER) (test cvbv=639) 968 U/L 29-200 C-REACTIVE [id number] 02:33:00 Test Item Value Reference Range Comments C-REACTIVE PROTEIN (BEAKER) (test fvnx=744) 0.45 mg/dL 0.00-0.50 LACTIC ACID, VENOUS, WHOLE [id number] 02:26:00 Test Item Value Reference Range Comments LACTATE BLOOD VENOUS (2) 1.0 mmol/L 0.5-2.2 Specimen slightly hemolyzed (BEAKER) (test frnj=2261) Effective 03/18/2016: Units/Reference Range ChangeNew: 0.5-2.2 mmol/L Previous: 5 -20 mg/dLCBC W/PLT COUNT & AUTO [id number] 02:05:00 Test Item Value Reference Range Comments WHITE BLOOD CELL COUNT (BEAKER) (test aeli=148) 7.7 K/ L 3.5-10.5 RED BLOOD CELL COUNT (BEAKER) (test gmtl=974) 4.16 M/ L 4.63-6.08 HEMOGLOBIN (BEAKER) (test dumt=326) 12.3 GM/DL 13.7-17.5 HEMATOCRIT (BEAKER) (test jvgg=370) 36.8 % 40.1-51.0 MEAN CORPUSCULAR VOLUME (BEAKER) (test dtsj=204) 88.5 fL 79.0-92.2 MEAN CORPUSCULAR HEMOGLOBIN (BEAKER) (test 29.6 pg 25.7-32.2 awae=489) MEAN CORPUSCULAR HEMOGLOBIN CONC (BEAKER) (test 33.4 GM/DL 32.3-36.5 glav=978) RED CELL DISTRIBUTION WIDTH (BEAKER) (test 13.4 % 11.6-14.4 yyao=116) PLATELET COUNT (BEAKER) (test isuq=799) 195 K/CU MM 150-450 MEAN PLATELET VOLUME (BEAKER) (test vyzd=769) 11.2 fL 9.4-12.4 NUCLEATED RED BLOOD CELLS (BEAKER) (test 0 /100 WBC 0-0 qdei=276) NEUTROPHILS RELATIVE PERCENT (BEAKER) (test 58 % efjk=452) LYMPHOCYTES RELATIVE PERCENT (BEAKER) (test 30 % nrgx=607) MONOCYTES RELATIVE PERCENT (BEAKER) (test 10 % itdv=457) EOSINOPHILS RELATIVE PERCENT (BEAKER) (test 2 % lmty=866) BASOPHILS RELATIVE PERCENT (BEAKER) (test 1 % omps=464) NEUTROPHILS ABSOLUTE COUNT (BEAKER) (test 4.46 K/ L 1.78-5.38 qalq=421) LYMPHOCYTES ABSOLUTE COUNT (BEAKER) (test 2.31 K/ L 1.32-3.57 nwpg=288) MONOCYTES ABSOLUTE COUNT (BEAKER) (test 0.74 K/ L 0.30-0.82 acod=294) EOSINOPHILS ABSOLUTE COUNT (BEAKER) (test 0.13 K/ L 0.04-0.54 ztsh=659) BASOPHILS ABSOLUTE COUNT (BEAKER) (test 0.04 K/ L 0.01-0.08 zruj=385) IMMATURE GRANULOCYTES-RELATIVE PERCENT (BEAKER) 0 % 0-1 (test kfxs=9568) POCT-BLOOD GASES, [id number] 01:50:00 Test Item Value Reference Range Comments TEMP, CELSIUS-POC (BEAKER) 37.0 (test fqbp=5258) FIO2-POC (BEAKER) (test TESTED AT [address] xfwf=1437) [place] [address] PH, ARTERIAL-POC (BEAKER) 7.396 7.350-7.450 (test gnmz=3741) PCO2, ARTERIAL-POC (BEAKER) 35.3 mm Hg 35.0-45.0 (test kwmc=2419) PO2, ARTERIAL-POC (BEAKER) 104.0 mm Hg 80.0-90.0 (test inxj=8089) SO2, ARTERIAL-POC (BEAKER) 98.0 % 96.0-97.0 (test vgdt=9212) HCO3, ARTERIAL-POC (BEAKER) 21.7 meq/L 21.0-29.0 (test crij=0951) BASE EXCESS, ARTERIAL-POC -3.0 meq/L -2.0-3.0 (BEAKER) (test skbw=8242) [id number] 01:50:00 Test Item Value Reference Range Comments POC-SODIUM (BEAKER) (test 140 meq/L 135-148 TESTED AT [address] itbd=0671) [place] [address] [id number] 01:50:00 Test Item Value Reference Range Comments POC-POTASSIUM (BEAKER) (test 3.4 meq/L 3.6-5.5 [address]ED [address] qchn=2592) [place] [address] [id number] 01:50:00 Test Item Value Reference Range Comments POC-GLUCOSE (BEAKER) (test 105 mg/dL 70-110 TESTED AT [address] zdof=5732) [place] [address] POCT-CALCIUM [id number] 01:50:00 Test Item Value Reference Range Comments POC-CALCIUM IONIZED (BEAKER) 1.15 mmol/L 1.12-1.27 TESTED AT [address] (test lqtk=2768) [place] [address] [id number] 01:50:00 Test Item Value Reference Range Comments POC-HEMATOCRIT (BEAKER) (test 35 % 40-50 TESTED AT [address] iegi=8139) [place] [address] [id number] 01:50:00 Test Item Value Reference Range Comments POC-HEMOGLOBIN (BEAKER) 11.9 g/dL 13.0-16.8 TESTED AT [address] (test hrwj=7529) [place] [address]TESTED AT [place] [address] POCT-LACTIC ACID, [id number] 01:49:00 Test Item Value Reference Range Comments POC-LACTIC ACID, ARTERIAL 0.9 mmol/L 0.4-1.3 TESTED AT [address] ([facility]) (test miqx=4728) [place] [address]
[2018-11-24] MEDS ORDERED: NA CHLORIDE 0.9% 1,000 ML ONE (00:53)
[2018-11-24] MEDS ORDERED: NA CHLORIDE 0.9% 100 ML IV ONE ×2 (00:54→01:26)
[2018-11-24] MEDS ORDERED: FOSPHENYTOIN PE 500 MG/10 ML VIAL ONE ×2 (00:54→02:06)
[2018-11-24] MEDS ORDERED: MIDAZOLAM HCL 2 MG/2 ML INJ ONE ×4 (01:05→02:13)
[2018-11-24 01:19] LABS: Absolute Lymphocytes (CBC) 3.5 K/uL (0.7-4.9); Absolute Monocytes 0.9 K/uL (0.1-1.3); Absolute Neutrophil 4.4 K/uL (1.8-8.0); Basophils % 0.5 % (0-1.3); Eosinophils % 0.5 % (0-4.4); Hematocrit 42.7 % (39.6-49.0); Lymphocytes % 39.7 % (15.3-44.8); Monocytes % 9.8 % (3.3-12.3); RBC Red Blood Cell Count 4.75 M/uL (4.33-5.43)
[2018-11-24] MEDS ORDERED: LEVETIRACETAM 500 MG/5 ML VIAL IV ONE (01:26)
[2018-11-24 01:31] LABS: ALT/SGPT 38 U/L (12-78); AST/SGOT 19 U/L (15-37); Alkaline Phosphatase 169 U/L (45-117); BUN Blood Urea Nitrogen 21 mg/dL (7-18); Bicarbonate 22 mmol/L (21-32); Bilirubin Direct < 0.1 mg/dL (0-0.2); Bilirubin Total 0.1 mg/dL (0.2-1.0); Glucose Level 89 mg/dL (74-106); Potassium 4.2 mmol/L (3.5-5.1); Sodium Level 143 mmol/L (136-145)
[2018-11-24 01:32] LABS: Albumin 3.8 g/dL (3.4-5.0); Protein, Total 7.4 g/dL (6.4-8.2)
[2018-11-24] MEDS ORDERED: DIAZEPAM 10 MG/2 ML INJ SYRINGE ONE ×2 (02:14→02:24)
[2018-11-24] MEDS ORDERED: RSI MEDICATION KIT IV ONE (02:35)
[2018-11-24] MEDS ORDERED: KETAMINE HCL 500 MG/5 ML VIAL ONE (02:35)
--- NOTE | 2018-11-24 02:37 | ER ---
Nurse's Notes [facility] Name: Alfie Zavala Age: 28 yrs Sex: Male : 1990 Arrival Date: 11/24/2018 Time: 00:24 Bed 3 Private MD: Diagnosis: Epilepsy and recurrent seizures Presentation: 11/24 00:35 Presenting complaint: Patient states: he has 3 grand mal and 1 petite mal seizures this aa1 evening and was concerned because last time this happened he had to be intubated and was life flighted for status epilepticus. Transition of care: patient was not received from another setting of care. Onset of symptoms was November 24, 2018. Risk Assessment: Do you want to hurt yourself or someone else? Patient reports no desire to harm self or others. Initial Sepsis Screen: Does the patient meet any 2 criteria? No. Patient's initial sepsis screen is negative. Does the patient have a suspected source of infection? No. Patient's initial sepsis screen is negative. Care prior to arrival: None. 00:35 Method Of Arrival: Ambulatory aa1 00:35 Acuity: KEN 2 aa1 Triage Assessment: 00:38 General: Appears in no apparent distress. comfortable, Behavior is calm, cooperative, aa1 appropriate for age. Historical: - Allergies: 00:38 Ativan; aa1 - Home Meds: 00:38 diazepam 10 mg Oral tab 1 tab daily prn for Acute Repetitive Seizures, Anxiety aa1 [Active]; fluoxetine 40 mg Oral cap 1 cap once daily [Active]; gabapentin 300 mg Oral cap 1 cap 3 times per day [Active]; lamotrigine 200 mg Oral tab 2 tabs once daily [Active]; sumatriptan oral 50 mg as needed [Active]; topiramate 50 mg Oral CSpX 1 cap twice a day [Active]; - PMHx: 00:38 Depression; Headaches; Seizures; status epilepticus; aa1 - PSHx: 00:38 Appendectomy; aa1 - Immunization history:: Flu vaccine is up to date. - Social history:: Smoking status: Patient/guardian denies using tobacco, Patient uses alcohol, street drugs, Patient/guardian denies using The patient lives with family. - Ebola Screening: : No symptoms or risks identified at this time. - Family history:: not pertinent. - Hospitalizations: : No recent hospitalization is reported. Screenin:00 Abuse screen: Denies threats or abuse. Denies injuries from another. Nutritional rr5 screening: No deficits noted. Tuberculosis screening: No symptoms or risk factors identified. Fall Risk Secondary diagnosis (15 points) seizures, IV access (20 points). Mental Status- Overestimates/Forgets Limitations (15 pts.). Total Adams Fall Scale indicates High Risk Score (45 or more points). Fall prevention measures have been instituted. Side Rails Up X 2 Placed Close to Nursing Station 1:1 Attendant Assigned Frequent Obs/Assessments Occuring. Assessment: 00:35 General: Appears in no apparent distress. uncomfortable, Behavior is calm, cooperative, rr5 appropriate for age. Pain: Denies pain. Neuro: Level of Consciousness is awake, alert, obeys commands, Oriented to person, place, time, situation, Appropriate for age. 00:35 Neuro: Reports had episodes of seizure and having some auras. Cardiovascular: Capillary rr5 refill < 3 seconds Patient's skin is warm and dry. Respiratory: Airway is patent Respiratory effort is even, unlabored, Respiratory pattern is regular, symmetrical. GI: No signs and/or symptoms were reported involving the gastrointestinal system. : No signs and/or symptoms were reported regarding the genitourinary system. EENT: No signs and/or symptoms were reported regarding the EENT system. Derm: Skin is intact, Skin temperature is warm. Musculoskeletal: Capillary refill < 3 seconds, Range of motion: intact in all extremities. 00:57 Neuro: Seizure activity noted at this time. Type of seizure: grand mal seizure. Seizure rr5 lasted approximately 3 minutes. 01:00 Neuro: Seizure activity Patient is post-ictal at this time. rr5 01:12 Neuro: Seizure activity noted at this time. Type of seizure: grand mal seizure. Seizure rr5 lasted approximately 13 minutes. 01:30 Neuro: Seizure activity Patient is post-ictal at this time. rr5 01:33 Neuro: Seizure activity noted at this time. Type of seizure: grand mal seizure. Seizure rr5 lasted approximately 4 minutes. 01:50 Neuro: Seizure activity Patient is post-ictal at this time. rr5 02:03 Neuro: Seizure activity noted at this time. Type of seizure: grand mal seizure. Seizure rr5 lasted approximately 9 minutes. 02:13 Neuro: Seizure activity noted at this time. Type of seizure: grand mal seizure. Seizure rr5 lasted approximately 5 minutes. 02:23 Neuro: Seizure activity noted at this time. Type of seizure: grand mal seizure. Seizure rr5 lasted approximately 2 minutes. 02:29 Neuro: Seizure activity Patient is post-ictal at this time. rr5 02:41 Reassessment: Patient and/or family updated on plan of care and expected duration. Pain rr5 level reassessed. shifted to trauma pad planning for standby intubation. 03:30 Reassessment: Patient and/or family updated on plan of care and expected duration. Pain rr5 level reassessed. awaiting for CT report. patient is on post ictal state. 04:00 Reassessment: Patient appears in no apparent distress at this time. pt appears to be tl2 sleeping, VSS, no seizure activity noted at this time. Vital Signs: 00:38 BP 136 / 88; Pulse 89; Resp 18; Temp 97.7; Pulse Ox 100% on R/A; Weight 109.77 kg; aa1 Height 5 ft. 10 in. (177.80 cm); Pain 8/10; 01:00 BP 115 / 75; Pulse 85; Resp 24; Pulse Ox 100% on 15% Non-rebreather mask; rr5 01:26 BP 105 / 62; Pulse 108; Resp 26; Pulse Ox 99% on 15% Non-rebreather mask; rr5 01:38 BP 98 / 58; Pulse 102; Resp 24; Pulse Ox 99% on 15% Non-rebreather mask; rr5 02:13 BP 126 / 104; Pulse 86; Resp 28; Pulse Ox 100% on 15% Non-rebreather mask; rr5 02:19 BP 99 / 51; Pulse 93; Resp 23; Pulse Ox 100% on 15% Non-rebreather mask; rr5 02:30 BP 114 / 100; Pulse 96; Resp 23; Pulse Ox 99% ; rr5 03:00 BP 102 / 56; Pulse 95; Resp 26; Pulse Ox 99% on 15% Non-rebreather mask; rr5 03:30 BP 91 / 58; Pulse 81; Resp 24; Pulse Ox 99% on 15% Non-rebreather mask; rr5 03:50 BP 92 / 56; Pulse 85; Resp 22; Pulse Ox 100% on Non-rebreather mask; rr5 00:38 Body Mass Index 34.72 (109.77 kg, 177.80 cm) aa1 01:00 post seizure rr5 01:26 post seizure rr5 01:38 post seizure rr5 02:13 post seizure rr5 02:19 post seizure rr5 02:30 post seizure rr5 Jackson Coma Score: 00:38 Eye Response: spontaneous(4). Verbal Response: oriented(5). Motor Response: obeys aa1 commands(6). Total: 15. ED Course: 00:24 Patient arrived in ED. ag3 00:32 Kay Chinchilla MD is Attending Physician. ma2 00:36 Triage completed. aa1 00:38 Arm band placed on right wrist. aa1 00:43 Tomas Garcias RN is Primary Nurse. rr5 00:45 Inserted saline lock: 20 gauge in left forearm, using aseptic technique. Blood rr5 collected. 00:50 Patient has correct armband on for positive identification. Placed in gown. Bed in low rr5 position. Call light in reach. Side rails up X2. Seizure precautions initiated. 00:50 lunchroom monitor on. Pulse ox on. NIBP on. rr5 00:57 Oxygen administration via non-rebreather mask \T\ 15L/min Response to oxygen therapy: rr5 symptoms improved. 02:36 Ismael Thompson MD is Hospitalizing Provider. ma2 03:16 CT Head Brain wo Cont In Process Unspecified. EDMS 03:16 CT completed. Patient tolerated procedure well. Patient moved to CT via stretcher. eh Patient moved back from CT. 04:00 No provider procedures requiring assistance completed. Patient admitted, IV remains in tl2 place. Administered Medications: 00:41 Not Given (dose changed): Fosphenytoin 20 mg pe/kg IV at calculated rate once; ma2 administer at a rate not to exceed 100 mg PE per minute 01:00 Drug: NS 0.9% 1000 ml Route: IV; Rate: 1 bolus; Site: left forearm; rr5 01:55 Follow up: Response: No adverse reaction; IV Status: Completed infusion; IV Intake: rr5 1000ml 01:00 Drug: Fosphenytoin 1 grams {Note: given by alicia CODY.} Route: IVPB; Site: left forearm; rr5 01:30 Follow up: Response: No adverse reaction; IV Status: Completed infusion; IV Intake: rr5 100ml 01:13 Drug: Midazolam 5 mg {Note: given by alicia CODY .} Route: IVP; Site: left forearm; rr5 03:30 Follow up: Response: No adverse reaction rr5 01:18 Drug: Keppra 1000 mg {Note: given by alicia CODY.} Route: IV; Rate: bolus; Site: left rr5 forearm; 01:20 Follow up: Response: No adverse reaction; IV Status: Completed infusion rr5 01:22 Drug: Midazolam 5 mg Route: IVP; Site: left forearm; rr5 03:30 Follow up: Response: No adverse reaction rr5 01:56 Drug: NS 0.9% 1000 ml Route: IV; Rate: 1000 ml; Site: left forearm; ao 04:45 Follow up: IV Status: Completed infusion; IV Intake: 1000ml tl2 02:04 Drug: Midazolam 5 mg Route: IVP; Site: left forearm; rr5 03:30 Follow up: Response: No adverse reaction rr5 02:06 Drug: Midazolam 5 mg {Note: given by alicia CODY.} Route: IVP; Site: left forearm; rr5 03:31 Follow up: Response: No adverse reaction rr5 02:07 Drug: Fosphenytoin 1 grams Route: IVPB; Site: left forearm; rr5 02:40 Follow up: Response: No adverse reaction; IV Status: Completed infusion; IV Intake: rr5 100ml 02:14 Drug: Valium 5 mg Route: IVP; Site: left forearm; rr5 03:29 Follow up: Response: No adverse reaction rr5 02:23 Drug: Valium 5 mg {Note: given by alicia CODY .} Route: IVP; Site: left forearm; rr5 03:29 Follow up: Response: No adverse reaction rr5 Intake: 01:30 IV: 100ml; Total: 100ml. rr5 01:55 IV: 1000ml; Total: 1100ml. rr5 02:40 IV: 100ml; Total: 1200ml. rr5 04:45 IV: 1000ml; Total: 2200ml. tl2 Outcome: 02:36 Decision to Hospitalize by Provider. ma2 04:00 Admitted to ICU accompanied by nurse, accompanied by milena, via stretcher, room 6, with tl2 chart, Report called to ESCOBAR Bolton 04:00 Condition: unchanged 04:00 Instructed on the need for admit. 04:46 Patient left the ED. tl2 Signatures: Dispatcher [employer] EDMS Kacy Douglas RN RN aa1 Adam Moreas Alex, RN RN ao Knox, Taylor, RN RN tl2 Kay Chinchilla MD MD ma2 Elizabeth Aguirre 3 Tomas Garcias RN RN rr5 Corrections: (The following items were deleted from the chart) 02:39 01:20 Neuro: Seizure activity Patient is post-ictal at this time. rr5 rr5 02:39 02:00 Reassessment: rr5 rr5 02:39 02:00 Neuro: Seizure activity Patient is post-ictal at this time. rr5 rr5 03:33 02:44 Reassessment: rr5 rr5
--- NOTE | 2018-11-24 02:38 | EDPHYS ---
Physician Documentation [facility] Name: Alfie Zavala Age: 28 yrs Sex: Male : 1990 Arrival Date: 11/24/2018 Time: 00:24 Bed 3 Private MD: ED Physician Kay Chinchilla HPI: 11/24 01:46 This 28 yrs old Male presents to ER via Ambulatory with complaints of Seizure. ma2 01:46 The patient presents with a history of multiple seizures, a total of 6, in status ma2 epilepticus. Character of seizure(s): Motor activity: generalized. Seizure onset: today, 30 minute(s) ago. Associated injury: The patient did not suffer any apparent associated injury. Current symptoms: Currently, the patient is not experiencing any symptoms. The patient has experienced similar episodes in the past. Historical: - Allergies: 00:38 Ativan; aa1 - Home Meds: 00:38 diazepam 10 mg Oral tab 1 tab daily prn for Acute Repetitive Seizures, Anxiety aa1 [Active]; fluoxetine 40 mg Oral cap 1 cap once daily [Active]; gabapentin 300 mg Oral cap 1 cap 3 times per day [Active]; lamotrigine 200 mg Oral tab 2 tabs once daily [Active]; sumatriptan oral 50 mg as needed [Active]; topiramate 50 mg Oral CSpX 1 cap twice a day [Active]; - PMHx: 00:38 Depression; Headaches; Seizures; status epilepticus; aa1 - PSHx: 00:38 Appendectomy; aa1 - Immunization history:: Flu vaccine is up to date. - Social history:: Smoking status: Patient/guardian denies using tobacco, Patient uses alcohol, street drugs, Patient/guardian denies using The patient lives with family. - Ebola Screening: : No symptoms or risks identified at this time. - Family history:: not pertinent. - Hospitalizations: : No recent hospitalization is reported. ROS: 01:46 Constitutional: Negative for fever, chills, and weight loss, Eyes: Negative for injury, ma2 pain, redness, and discharge, Cardiovascular: Negative for chest pain, palpitations, and edema, Respiratory: Negative for shortness of breath, cough, wheezing, and pleuritic chest pain, Abdomen/GI: Negative for abdominal pain, nausea, diarrhea, and constipation. 01:46 Neuro: Positive for seizure activity, Negative for headache, visual changes, weakness. 01:46 All other systems are negative. Exam: 01:46 Constitutional: This is a well developed, well nourished patient who is awake, alert, ma2 and in no acute distress. Head/Face: Normocephalic, atraumatic. Eyes: Pupils equal round and reactive to light, extra-ocular motions intact. Lids and lashes normal. Conjunctiva and sclera are non-icteric and not injected. Cornea within normal limits. Periorbital areas with no swelling, redness, or edema. Chest/axilla: Normal chest wall appearance and motion. Nontender with no deformity. No lesions are appreciated. Cardiovascular: Regular rate and rhythm with a normal S1 and S2. No gallops, murmurs, or rubs. Normal PMI, no JVD. No pulse deficits. Respiratory: Lungs have equal breath sounds bilaterally, clear to auscultation and percussion. No rales, rhonchi or wheezes noted. No increased work of breathing, no retractions or nasal flaring. Abdomen/GI: Soft, non-tender, with normal bowel sounds. No distension or tympany. No guarding or rebound. No evidence of tenderness throughout. MS/ Extremity: Pulses equal, no cyanosis. Neurovascular intact. Full, normal range of motion. Neuro: Awake and alert, GCS 15, oriented to person, place, time, and situation. Cranial nerves II-XII grossly intact. Motor strength 5/5 in all extremities. Sensory grossly intact. Cerebellar exam normal. Normal gait. Vital Signs: 00:38 BP 136 / 88; Pulse 89; Resp 18; Temp 97.7; Pulse Ox 100% on R/A; Weight 109.77 kg; aa1 Height 5 ft. 10 in. (177.80 cm); Pain 8/10; 01:00 BP 115 / 75; Pulse 85; Resp 24; Pulse Ox 100% on 15% Non-rebreather mask; rr5 01:26 BP 105 / 62; Pulse 108; Resp 26; Pulse Ox 99% on 15% Non-rebreather mask; rr5 01:38 BP 98 / 58; Pulse 102; Resp 24; Pulse Ox 99% on 15% Non-rebreather mask; rr5 02:13 BP 126 / 104; Pulse 86; Resp 28; Pulse Ox 100% on 15% Non-rebreather mask; rr5 02:19 BP 99 / 51; Pulse 93; Resp 23; Pulse Ox 100% on 15% Non-rebreather mask; rr5 02:30 BP 114 / 100; Pulse 96; Resp 23; Pulse Ox 99% ; rr5 03:00 BP 102 / 56; Pulse 95; Resp 26; Pulse Ox 99% on 15% Non-rebreather mask; rr5 03:30 BP 91 / 58; Pulse 81; Resp 24; Pulse Ox 99% on 15% Non-rebreather mask; rr5 03:50 BP 92 / 56; Pulse 85; Resp 22; Pulse Ox 100% on Non-rebreather mask; rr5 00:38 Body Mass Index 34.72 (109.77 kg, 177.80 cm) aa1 01:00 post seizure rr5 01:26 post seizure rr5 01:38 post seizure rr5 02:13 post seizure rr5 02:19 post seizure rr5 02:30 post seizure rr5 Nino Coma Score: 00:38 Eye Response: spontaneous(4). Verbal Response: oriented(5). Motor Response: obeys aa1 commands(6). Total: 15. MDM: 00:32 Patient medically screened. ma2 01:46 Differential diagnosis: drug overdose, seizure, . Data reviewed: vital signs, nurses ma2 notes. 02:34 Counseling: I had a detailed discussion with the patient and/or guardian regarding: the nd2 historical points, exam findings, and any diagnostic results supporting the discharge/admit diagnosis, the presence of at least one elevated blood pressure reading (>120/80) during this emergency department visit, the need for outpatient follow up. Response to treatment: the patient's symptoms have markedly improved after treatment. ED course: has multiple seizures less than 11 min duration then was back to baseline and had another seizures back toback lasted for 14 min. 11/24 00:37 Order name: Basic Metabolic Panel; Complete Time: :39 2 11/24 00:37 Order name: CBC with Diff; Complete Time: 01:39 ma2 11/24 00:37 Order name: LFT's; Complete Time: 01:39 ma2 11/24 00:37 Order name: Magnesium; Complete Time: 01:40 ma2 11/24 00:37 Order name: CT Head Brain wo Cont ma2 11/24 00:37 Order name: IV Saline Lock; Complete Time: 03:2 11/24 00:37 Order name: Labs collected and sent; Complete Time: :11/24 00:37 Order name: O2 Per Protocol; Complete Time: :11/24 00:37 Order name: O2 Sat Monitoring; Complete Time: 03:31 ma2 Administered Medications: 00:41 Not Given (dose changed): Fosphenytoin 20 mg pe/kg IV at calculated rate once; ma2 administer at a rate not to exceed 100 mg PE per minute 01:00 Drug: NS 0.9% 1000 ml Route: IV; Rate: 1 bolus; Site: left forearm; rr5 01:55 Follow up: Response: No adverse reaction; IV Status: Completed infusion; IV Intake: rr5 1000ml 01:00 Drug: Fosphenytoin 1 grams {Note: given by alicia CODY.} Route: IVPB; Site: left forearm; rr5 01:30 Follow up: Response: No adverse reaction; IV Status: Completed infusion; IV Intake: rr5 100ml 01:13 Drug: Midazolam 5 mg {Note: given by alicia CODY .} Route: IVP; Site: left forearm; rr5 03:30 Follow up: Response: No adverse reaction rr5 01:18 Drug: Keppra 1000 mg {Note: given by alicia CODY.} Route: IV; Rate: bolus; Site: left rr5 forearm; 01:20 Follow up: Response: No adverse reaction; IV Status: Completed infusion rr5 01:22 Drug: Midazolam 5 mg Route: IVP; Site: left forearm; rr5 03:30 Follow up: Response: No adverse reaction rr5 01:56 Drug: NS 0.9% 1000 ml Route: IV; Rate: 1000 ml; Site: left forearm; ao 04:45 Follow up: IV Status: Completed infusion; IV Intake: 1000ml tl2 02:04 Drug: Midazolam 5 mg Route: IVP; Site: left forearm; rr5 03:30 Follow up: Response: No adverse reaction rr5 02:06 Drug: Midazolam 5 mg {Note: given by alicia CODY.} Route: IVP; Site: left forearm; rr5 03:31 Follow up: Response: No adverse reaction rr5 02:07 Drug: Fosphenytoin 1 grams Route: IVPB; Site: left forearm; rr5 02:40 Follow up: Response: No adverse reaction; IV Status: Completed infusion; IV Intake: rr5 100ml 02:14 Drug: Valium 5 mg Route: IVP; Site: left forearm; rr5 03:29 Follow up: Response: No adverse reaction rr5 02:23 Drug: Valium 5 mg {Note: given by alicia CODY .} Route: IVP; Site: left forearm; rr5 03:29 Follow up: Response: No adverse reaction rr5 Disposition: 11/24/18 02:36 Hospitalization ordered by Ismael Thompson for Inpatient Admission. Preliminary diagnosis is Epilepsy and recurrent seizures. - Bed requested for Intensive Care Unit. - Status is Inpatient Admission. tl2 - Condition is Critical. - Problem is new. - Symptoms are unchanged. UTI on Admission? No Signatures: Dispatcher [employer] EDMS Kacy Douglas RN RN aa1 Paty Galvez RN RN cg Arden Velarde RN RN ao Lubna Salas RN RN tl2 Kay Chinchilla MD MD nd2 Tomas Garcias RN RN rr5 Corrections: (The following items were deleted from the chart) 03:49 02:36 Hospitalization Ordered by Ismael Thompson MD for Inpatient Admission. Preliminary cg diagnosis is Epilepsy and recurrent seizures. Bed requested for Intensive Care Unit. Status is Inpatient Admission. Condition is Critical. Problem is new. Symptoms are unchanged. UTI on Admission? No. ma2 04:46 03:49 11/24/2018 02:36 Hospitalization Ordered by Ismael Thompson MD for Inpatient tl2 Admission. Preliminary diagnosis is Epilepsy and recurrent seizures. Bed requested for Intensive Care Unit. Status is Inpatient Admission. Condition is Critical. Problem is new. Symptoms are unchanged. UTI on Admission? No. cg
[2018-11-24] MEDS ORDERED: LORazepam 2 MG/ML VIAL IV PRN (04:09)
[2018-11-24] MEDS ORDERED: ONDANSETRON 4 MG/2 ML VIAL IV PRN (04:09)
[2018-11-24] MEDS: NA CHLORIDE 0.9% 1,000 ML IV SCH ×3 (04:52→21:03)
[2018-11-24 05:12] VITALS: BMI 34.6
[2018-11-24] MEDS ORDERED: DIAZEPAM 10 MG/2 ML INJ SYRINGE IV PRN ×2 (05:15→07:49)
--- NOTE | 2018-11-24 05:33 | P.HP ---
Certification for Inpatient Patient admitted to: Inpatient With expected LOS: >2 Midnights Practitioner: I am a practitioner with admitting privileges, knowledge of patient current condition, hospital course, and medical plan of care. Services: Services provided to patient in accordance with Admission requirements found in Title 42 Section 412.3 of the Code of Federal Regulations Patient History Date of Service: 11/24/18 Reason for admission: recurrent seizure episode History of Present Illness: Mr Zavala is a 28 years old with history of seizure disorder, status epilepticus required intubation in the past, came to ED after had 1 petit and 3 grand mal seizures episode about 1 hour prior to arrive. The patient denied any fever or chills. During his stay in ED, he had multiple generalized complex seizure episodes. He was treated with Midazolam, loaded with IV keppra and fosphenytoin. He was about to be intubated to start general anesthesia, but finally his seizure stopped, however the patient remained in post-ictal status. Lab work shows normal WBC count, he is afebrile. Allergies lorazepam [From Ativan] Allergy (Unknown, Verified 11/24/18 05:12) Rash Home medications list reviewed: Yes - Past Medical/Surgical History Has patient received pneumonia vaccine in the past: No Diabetic: No -: Seizure -: Depression -: Headaches -: Status epilepticus -: Appendectomy - Family History Father -: Diabetes Brother -: Hypertension Sister -: Cancer - Social History Smoking Status: Never smoker Alcohol use: No CD- Drugs: No Caffeine use: Yes Place of Residence: Home Review of Systems is unable to be obtained (post ictal status) Physical Examination - Vital Signs Temperature: 97.7 F Blood Pressure: 92/56 Pulse: 85 Respirations: 22 - Physical Exam General: Alert, In no apparent distress HEENT: Atraumatic, PERRLA, Other (mucous membr dry), Sclerae nonicteric Neck: Supple, 2+ carotid pulse no bruit, No LAD, Without JVD or thyroid abnormality Respiratory: Clear to auscultation bilaterally, Normal air movement Cardiovascular: Regular rate/rhythm, Normal S1 S2 Gastrointestinal: Normal bowel sounds, No tenderness Musculoskeletal: No tenderness Integumentary: No rashes Neurological: Normal strength at 5/5 x4 extr, Normal tone, Sensation intact Lymphatics: No axilla or inguinal lymphadenopathy - Studies Laboratory Data (last 24 hrs) 11/24/18 00:40: WBC 8.8, Hgb 14.4, Hct 42.7, Plt Count 216 11/24/18 00:40: Sodium 143, Potassium 4.2, BUN 21 H, Creatinine 1.16, Glucose 89 , Magnesium 2.0, Total Bilirubin 0.1 L, AST 19, ALT 38, Alkaline Phosphatase 169 H Assessment and Plan - Problems (Diagnosis) (1) Seizure, epileptic Current Visit: Yes Status: Acute Qualifiers: Epilepsy type: generalized idiopathic Intractability: not intractable Status epilepticus: without status epilepticus Qualified Code(s): G40.309 - Generalized idiopathic epilepsy and epileptic syndromes, not intractable, without status epilepticus - Plan The patient will be admitted to ICU for close monitoring, currently seizure seems to be under control. Will continue with phenytoin and Keppra IV, diazepam IV prn. Dr Christensen has been consulted for medication optimization. CT head shows no acute abnormalities, awaiting radiology report. - Advance Directives Does patient have a Living Will: No Does patient have a Durable POA for Healthcare: No - Code Status/Comfort Care Code Status Assessed: Yes Code Status: Full Code
[2018-11-24] MEDS: PHENYTOIN NA 100 MG/2 ML IV SCH ×2 (07:47→17:00)
[2018-11-24] MEDS: levETIRAcetam 500 MG in NA CHLORIDE 0.9% 100 ML IV SCH ×2 (08:07→21:03)
--- NOTE | 2018-11-24 08:12 | RAD REPORT ---
EXAM DESCRIPTION: CT - Head Brain Wo Cont - 11/24/2018 6:54 am CLINICAL HISTORY: SEIZURE Headache, drowsiness COMPARISON: Head Brain Wo Cont dated 09/10/2018; Head Brain Wo Cont dated 11/01/2016 TECHNIQUE: All CT scans are performed using dose optimization technique as appropriate and may inclu de automated exposure control or mA/KV adjustment according to patient size. FINDINGS: No intracranial hemorrhage, hydrocephalus or extra-axial fluid collection.No areas of brai n edema or evidence of midline shift. The paranasal sinuses and mastoids are clear. The calvarium is intact. IMPRESSION: No acute intracranial abnormality.
[2018-11-24 09:28] LABS: Urine Appearance CLEAR; Urine Bilirubin NEGATIVE (NEG); Urine Blood NEGATIVE (NEG); Urine Color YELLOW; Urine Glucose NEGATIVE (NEG); Urine Protein NEGATIVE (NEG); Urine Urobilinogen 0.2 mg/dL (0.2-1.0); Urine pH 6.5 (5.0-7.0)
[2018-11-24 09:29] LABS: Urine Microscopic Reflex NO UMIC
[2018-11-24 11:06] LABS: Barbiturates NEGATIVE (NEGATIVE); Benzodiazepines POSITIVE (NEGATIVE); Cocaine NEGATIVE (NEGATIVE); METHAMPHETAM NEGATIVE (NEGATIVE); Methadone NEGATIVE (NEGATIVE); Opiates NEGATIVE (NEGATIVE); Phencyclidine NEGATIVE (NEGATIVE); THC Cannibis NEGATIVE (NEGATIVE)
[2018-11-24] MEDS ORDERED: DIAZEPAM 5 MG TABLET PO PRN (11:56)
[2018-11-24] MEDS ORDERED: GABAPENTIN 300 MG CAP PO PRN (11:56)
[2018-11-24] MEDS ORDERED: SUMATRIPTAN SUCCI 50 MG TAB PO PRN (11:56)
--- NOTE | 2018-11-24 17:02 | PN ---
Date of Progress Note: 11/24/2018 Subjective: The patient is seen and examined. Chart reviewed and case discussed with RN. The patie nt continues to have seizures. He is allergic to Ativan. He was given repeat doses of Valium. Witn essed seizure does seem to be somewhat possibility of pseudo-seizure. The patient does not have any postictal state and does not become hypoxic. Medications: List reviewed. Physical Examination: Vital Signs: Temperature 97.7, heart rate 85, blood pressure 92/56, respirations 22, O2 98% on room air. General: Awake, alert, not oriented, somewhat confused, ill-appearing male, obese. CV: S1, S2. Sinus tachycardia. No murmurs. Peripheral pulses present bilaterally. Respiratory: Moving air well bilaterally. No wheezing or stridor. No use of accessory muscles. Gastrointestinal: Abdomen is soft, nontender, nondistended. Positive bowel sounds. No guarding or rigidity. Extremities: No clubbing, cyanosis, or edema. Neuro: Cranial nerves 2-12 intact grossly. Strength is symmetric bilateral upper and lower extremit ies. Moves all 4 extremities. Speech is normal. Skin: No rashes. Normal skin turgor. Laboratory Data: Sodium 143, potassium 4.2, chloride 111, CO2 22, BUN 21, creatinine 1.16, glucose 8 9, calcium 8.2. WBC 8.8, H and H 14.4 and 42.7, platelets 216. UA is negative. Drug screen positiv e for benzodiazepines. CT scan of the head shows no acute intracranial abnormalities. Assessment: A 28-year-old male with: 1.Epileptic seizure, not intractable. The patient has had multiple episodes, longest episode lastin g 13 minutes. The patient was about to be intubated, however seizure stopped. The patient has requi red intubation in the past. The patient has been loaded with Keppra and fosphenytoin. EEG has been ordered. Dr. Christensen with Neurology has been consulted. We will continue with Valium p.r.n. 2.Obesity. BMI 34.6. 3.Major depressive disorder. 4.History of chronic headaches. Plan: Continue close monitoring in ICU. CT head is negative. We will check prolactin level for libby e possibility of pseudoseizures. The patient has had multiple admissions in the past for similar iss ues. SA/MODL Voice ID: [id number] Report ID: [id number]
--- NOTE | 2018-11-24 20:55 | RAD REPORT ---
EXAM DESCRIPTION: MRI - Brain W/Wo Cont - 11/24/2018 8:25 pm CLINICAL HISTORY: Seizures, headache COMPARISON: CT head November 24, 2018, MR brain September 2009 TECHNIQUE: Sagittal and axial T1-weighted images were obtained. Axial PD/heavily T2-weighted and T2- FLAIR images were obtained along with axial DWI/ADC mapping sequences. Coronal heavily T2 weighted a nd T1 weighted sequences obtained. Axial and coronal post-contrast T1-weighted images were also obta ined. A 20 ml Multihance contrast following utilized. FINDINGS: No intracranial hemorrhage, mass or acute infarction. There is no edema or shift of midli ne structures. No extra-axial fluid collections. Jacob-matter/white matter junction is preserved. Sig nal voids are seen as a normal finding in the major intracranial vessels. No sella or supra sella abn ormality. Medial temporal lobes show no asymmetry or suspicious finding. Globes and orbital contents are normal. Minimal 2 mm tonsillar ectopia not considered significant. Post-contrast images show normal enhancement. No dural thickening. Mastoid air cells and paranasal sinuses are clear. No significant change from comparison imaging. IMPRESSION: Negative contrast enhanced MRI of the Brain.
--- NOTE | 2018-11-24 23:23 | CON ---
Reason For Consultation: Consultation called because of recurrent seizures. History Of Present Illness: Mr. Zavala is a 28-year-old, right-handed patient, who comes i n with fqfs-hr-woyg seizures. He reports a history of epilepsy for many years and has a neurologist in [place]. He says the seizures may occur with a frequency up to above 4 or 5 per month. He notes that seizures become worse if he is stressed and he is currently going through a separation from his with her plan to file for divorce. He also reports taking at least 3 medicines for seizures, wh ich include Lamictal, topiramate, and gabapentin. He denies poor compliance with medications, but do es admit to being around people who smoke marijuana and said he last did it sometime in September or c ould have been later in the year. In any event, he reported that he had several fkla-ky-keqz seizure s and was loaded with fosphenytoin and intravenous Keppra and given benzodiazepines and admitted to [facility] ICU. The patient's seizures eventually stopped after the multiple drug load and since being in [facility] ICU, he has not had any additional seizure activity and is currently having an EEG done. Past Medical History: 1.Epilepsy. 2.Migraines. 3.History of multiple seizures including possible status epilepticus. 4.Depression. Past Surgical History: Appendectomy. Family History: Diabetes in father. Brother with hypertension. Sister has cancer. Allergies: LORAZEPAM. Social History: Admits to drug use including marijuana in the past, but denies alcohol or tobacco us e. Current Medications: 1.Valium as needed 5 mg for seizures. 2.Prozac 40 mg daily. 3.Gabapentin 300 mg 3 times daily. 4.Keppra 500 mg twice daily. 5.Dilantin 100 mg every 8 hours. 6.Zofran 4 mg every 6 hours as needed along with Imitrex 50 mg as needed for headache. Review of Systems: Mr. Zavala denies any recent fevers, chills, nausea, vomiting, myalgias, arthralgias, headaches, zaki ght change, rash, psychiatric complaints, gastrointestinal or genitourinary complaints. Physical Examination: Vital Signs: Blood pressure 141/79, pulse 87, respiratory rate 16, temperature 97.6, and oxygen satu ration 100% on room air. Weight 241 pounds. Height 5 feet 10 inches, BMI 36.4. General: Mr. Zavala is resting comfortably, having an EEG done. HEENT: He is normocephalic, atraumatic. Sclerae anicteric. Oropharynx is pink and moist. Neck: Supple. Chest: Clear. Heart: Regular. Extremities: Show no edema, cyanosis, or clubbing. Neurologic: He is alert and oriented to situation, place, person and follows all commands appropriat tony. He has no expressive or receptive aphasias. Motor examination in the upper and lower extremiti es show 5/5 strength proximally and distally. Sensory examination intact in the upper and lower extr emities. Coordination intact in upper and lower extremities. Reflexes 2+ biceps, triceps, brachiora dialis, patellae, and heels. Again, intact coordination. The patient has had an EEG done and was no t ambulated. Laboratory Studies: Complete blood count with differential completely normal. Chemistries essential ly unremarkable except slightly elevated chloride of 111, BUN is slightly elevated at 21, calcium sli ghtly low at 8.2. Liver function studies show some mild elevation of alkaline phosphatase 169. His procalcitonin is pending. His toxicology is positive for benzodiazepines. Urinalysis unremarkable. His head CT scan is unremarkable. He does have an EEG, which is pending. Assessment: Mr. Zavala is a 28-year-old patient reportedly with his long history of seizures, possi gillian complex partial with secondary generalization and has a neurologist in [place]. He is on multipl e antiepileptic medications. Reports he has been very stressed and going through a separation of pos sible divorce from his . He reports also using marijuana and potentially other illegal drugs, al though his drug screen currently is negative. He was admitted with status epilepticus and loaded on multiple antiepileptic medications including benzodiazepines. Plan: He may be discharged home on his admitting regimen of Lamictal 400 mg daily, gabapentin 300 mg twice daily, and topiramate 150 mg twice daily. He may follow up with his primary care physician an d neurologist as scheduled. IGLESIA/VANESA Voice ID: [id number] Report ID: [id number]
[2018-11-25] MEDS: PHENYTOIN NA 100 MG/2 ML IV SCH ×2 (01:00→10:07)
[2018-11-25 06:20] LABS: Absolute Lymphocytes (CBC) 2.6 K/uL (0.7-4.9); Absolute Monocytes 0.5 K/uL (0.1-1.3); Absolute Neutrophil 2.5 K/uL (1.8-8.0); Basophils % 0.6 % (0-1.3); Eosinophils % 1.2 % (0-4.4); Hematocrit 38.5 % (39.6-49.0); Lymphocytes % 46.4 % (15.3-44.8); MPV 8.8 fL (7.6-11.3); Monocytes % 8.2 % (3.3-12.3); RBC Red Blood Cell Count 4.33 M/uL (4.33-5.43)
[2018-11-25 06:38] LABS: BUN Blood Urea Nitrogen 8 mg/dL (7-18); Bicarbonate 25 mmol/L (21-32); Glucose Level 86 mg/dL (74-106); Potassium 3.8 mmol/L (3.5-5.1); Sodium Level 143 mmol/L (136-145)
[2018-11-25] MEDS ORDERED: POTASSIUM 25 MEQ EFFERV TAB PO ONE (06:45)
[2018-11-25] MEDS ORDERED: FLUOXETINE 20 MG CAP PO SCH (09:00)
[2018-11-25] MEDS: levETIRAcetam 500 MG in NA CHLORIDE 0.9% 100 ML IV SCH (10:07)
[2018-11-25] MEDS: NA CHLORIDE 0.9% 1,000 ML IV SCH (10:08)
[2018-11-25 10:55] VITALS: O2SAT 99
[2018-11-25 12:30] VITALS: BP 112/65; TEMP 98
--- NOTE | 2018-11-26 03:26 | DS ---
Date of Discharge: 11/25/2018 Data Integration Developer: Dr. Christensen with Neurology. Procedures: EEG. Admitting Diagnoses: 1.Epileptic seizure. 2.Obesity. 3.Major depressive disorder. 4.Migraine headaches. Discharge Diagnoses: 1.Epileptic seizure, not intractable, likely complex partial. 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 Brain imaging is negative. 2.Obesity. Body mass index 34.6. 3.Major depressive disorder, recurrent. 4.History of chronic headache, migraines, on triptan p.r.n. Hospital Course: The patient is a 28-year-old male who has history of seizures, has multiple admissi ons to the hospital, has multiple drug use, illicit drug use with marijuana and other substances. Th e patient came in due to several seizures longest one lasting 13 minutes. However, prior to being in tubated, the patient's seizure stopped. The patient did have some witnessed seizures. Did not feel that these were actual seizures. The patient is under a lot of stress, undergoing divorce with his w rut. The patient is on Lamictal and lamotrigine as well as topiramate. Does see a neurologist in [facility]. EEG was done as well as MRI of the brain. EEG results are currently pending. MRI of the bra in was negative. The patient was seen by Dr. Christensen who did not recommend any changes to his medic ations. He will follow up with his primary neurologist for workup. The patient during one of his se izures was talking during the seizure. He did not become hypoxic, did not have a postictal state. T herefore, validity of his seizures is somewhat questionable. However, he will be continued on Lamict al and topiramate as well as the gabapentin. The patient does take triptans for his headaches. The patient was loaded with Dilantin and fosphenytoin in the ER, which improved his condition. The patie nt was then cleared for discharge. He was sent home in a stable condition. Activity: Seizure precautions. No driving, swimming, or heights. Medications: As per medication reconciliation list. Followup: Follow up with primary care physician in 2-3 days. Follow up with neurologist in [place] 1 week. Return to ER for worsening condition. Diet: Regular. Physical Examination: General: Awake, alert, oriented x3. No acute distress. Obese male. CV: S1, S2. No murmurs. Respiratory: Moving air well bilaterally. No wheezing. Gastrointestinal: Abdomen is soft, nontender, nondistended. Positive bowel sounds. Extremities: No clubbing, cyanosis, or edema. Neurologic: Nonfocal. Total time spent discharging the patient was 36 minutes. /VANESA Voice ID: [id number] Report ID: [id number]
--- NOTE | 2018-11-28 10:11 | EEG ---
CHART: [id number] TEST ID#: [id number] DATE OF STUDY: 11/24/18 THE EEG WAS RECORDED PORTABLE IN THE ICU ON A 17 CHANNEL MACHINE. ELECTRODES WERE APPLIED IN THE USUAL MANNER USING THE INTERNATIONAL 10-20 SYSTEM. THE WAKING BACKGROUND RHYTHM IN THIS RECORD CONSISTS OF VERY WELL DEVELOPED AND WELL ORGANIZED WAVES OF 10 HZ., MAXIMAL IN THE POSTERIOR HEAD REGIONS WHICH ATTENUATE NORMALLY WITH EYE OPENING. LOW-VOLTAGE 18-22 HZ ACTIVITY IS EXPRESSED IN THE FRONTAL REGIONS. THERE ARE NO FOCAL OR LATERALIZING FEATURES. NO EPILEPTIFORM ACTIVITY APPEARS. SLEEP DID NOT OCCUR. HYPERVENTILATION WAS NO PREFORMED. PHOTIC STIMULATION PRODUCED FAIR DRIVING BILATERALLY. IMPRESSION: NORMAL EEG FOR THE AGE OF THE PATIENT IN [place].
== END 2018-11-25 13:29 | disposition home or self-care (01) | DRG 101 ==
LOC: ER 00:22 → ERHOLD 03:44 → 3RD-ICU 04:08 → 4TH 15:30
PROVIDERS: ADMIT Internal Medicine; ATTEND Family Medicine
DX: G40.209 Localization-related (focal) (partial) symptomatic epilepsy and epileptic syndromes with complex partial seizures, not intractable, without status epilepticus (principal); F33.9 Major depressive disorder, recurrent, unspecified; E66.9 Obesity, unspecified; Z68.34 Body mass index [BMI] 34.0-34.9, adult; F12.10 Cannabis abuse, uncomplicated; F19.10 Other psychoactive substance abuse, uncomplicated; R09.02 Hypoxemia; G43.909 Migraine, unspecified, not intractable, without status migrainosus
CPT/HCPCS: 36415; 70450; 70553; 80048; 80076; 80307; 81003; 83735; 84146; 85025; 95816; 96361; 96365; 96375; 99285; A9577; J1165; J1953; J2250; J3360; J7030; Q2009

== ENCOUNTER 2018-12-25 22:45 | Emergency (ER) | payer BC ==
[2018-12-25 23:05] LABS: Absolute Lymphocytes (CBC) 2.8 K/uL (0.7-4.9); Absolute Monocytes 0.7 K/uL (0.1-1.3); Absolute Neutrophil 4.3 K/uL (1.8-8.0); Basophils % 0.7 % (0-1.3); Eosinophils % 0.7 % (0-4.4); Hematocrit 44.6 % (39.6-49.0); Lymphocytes % 35.8 % (15.3-44.8); Monocytes % 8.4 % (3.3-12.3); RBC Red Blood Cell Count 5.01 M/uL (4.33-5.43)
[2018-12-25 23:08] LABS: Protime INR 1.08
[2018-12-25] MEDS ORDERED: DIAZEPAM 10 MG/2 ML INJ SYRINGE ONE (23:09)
[2018-12-25] MEDS ORDERED: NA CHLORIDE 0.9% 250 ML ONE (23:10)
[2018-12-25] MEDS ORDERED: FOSPHENYTOIN PE 500 MG/10 ML VIAL ONE (23:11)
--- NOTE | 2018-12-25 23:12 | EDPHYS ---
Physician Documentation [facility] Name: Alfie Zavala Age: 28 yrs Sex: Male : 1990 Arrival Date: 12/25/2018 Time: 22:49 Bed 4 Private MD: ED Physician Blue Rodriguez HPI: 12/25 23:06 This 28 yrs old Male presents to ER via EMS with complaints of Seizure. dominik 23:06 The patient presents with a history of multiple seizures, a total of 5. Character of dominik seizure(s): Loss of consciousness: the patient experienced loss of consciousness, Motor activity: generalized, shaking all over, Incontinence: none, Apnea: the patient did not experience apnea, Circulation: the patient did not experience evidence of pulse disturbance. Seizure onset: just prior to arrival, today. Context: the seizure(s) was witnessed, by family, occurred at home. Seizure Hx: Last seizure: The patient's last seizure was approximately 1 week(s) ago. Associated injury: The patient did not suffer any apparent associated injury. EMS care: none. The patient has not experienced similar symptoms in the past. Historical: - Allergies: 23:03 Ativan; fc - Home Meds: 23:03 sumatriptan oral 50 mg as needed [Active]; fluoxetine 40 mg Oral cap 1 cap once daily fc [Active]; topiramate 50 mg Oral CSpX 3 caps twice a day [Active]; diazepam 10 mg Oral tab 1 tab daily prn for Acute Repetitive Seizures, Anxiety [Active]; lamotrigine 200 mg Oral tab 2 tabs once daily [Active]; gabapentin 300 mg Oral cap 1 cap tid prn [Active]; zolpidem 12.5 mg Oral TbMP 1 tab qhs prn [Active]; - PMHx: 23:03 Depression; Headaches; Seizures; status epilepticus; fc - PSHx: 23:03 Appendectomy; fc - Immunization history:: Last tetanus immunization: up to date Flu vaccine is not up to date. - Social history:: Smoking status: Patient/guardian denies using tobacco, Patient/guardian denies using alcohol, street drugs. - Ebola Screening: : Patient negative for fever greater than or equal to 101.5 degrees Fahrenheit, and additional compatible Ebola Virus Disease symptoms Patient denies exposure to infectious person Patient denies travel to an Ebola-affected area in the 21 days before illness onset. - Family history:: not pertinent. ROS: 23:06 Constitutional: Negative for fever, chills, and weight loss, Eyes: Negative for injury, dominik pain, redness, and discharge, ENT: Negative for injury, pain, and discharge, Neck: Negative for injury, pain, and swelling, Cardiovascular: Negative for chest pain, palpitations, and edema, Respiratory: Negative for shortness of breath, cough, wheezing, and pleuritic chest pain, Abdomen/GI: Negative for abdominal pain, nausea, vomiting, diarrhea, and constipation, Back: Negative for injury and pain, : Negative for injury, bleeding, discharge, and swelling, MS/Extremity: Negative for injury and deformity, Skin: Negative for injury, rash, and discoloration, Psych: Negative for depression, anxiety, suicide ideation, homicidal ideation, and hallucinations, Allergy/Immunology: Negative for hives, rash, and allergies, Endocrine: Negative for neck swelling, polydipsia, polyuria, polyphagia, and marked weight changes, Hematologic/Lymphatic: Negative for swollen nodes, abnormal bleeding, and unusual bruising. 23:06 Neuro: Positive for seizure activity. Exam: 23:06 Constitutional: This is a well developed, well nourished patient who is awake, alert, dominik and in no acute distress. Head/Face: Normocephalic, atraumatic. Eyes: Pupils equal round and reactive to light, extra-ocular motions intact. Lids and lashes normal. Conjunctiva and sclera are non-icteric and not injected. Cornea within normal limits. Periorbital areas with no swelling, redness, or edema. ENT: Nares patent. No nasal discharge, no septal abnormalities noted. Tympanic membranes are normal and external auditory canals are clear. Oropharynx with no redness, swelling, or masses, exudates, or evidence of obstruction, uvula midline. Mucous membranes moist. Neck: Trachea midline, no thyromegaly or masses palpated, and no cervical lymphadenopathy. Supple, full range of motion without nuchal rigidity, or vertebral point tenderness. No Meningismus. Chest/axilla: Normal chest wall appearance and motion. Nontender with no deformity. No lesions are appreciated. Cardiovascular: Regular rate and rhythm with a normal S1 and S2. No gallops, murmurs, or rubs. Normal PMI, no JVD. No pulse deficits. Respiratory: Lungs have equal breath sounds bilaterally, clear to auscultation and percussion. No rales, rhonchi or wheezes noted. No increased work of breathing, no retractions or nasal flaring. Abdomen/GI: Soft, non-tender, with normal bowel sounds. No distension or tympany. No guarding or rebound. No evidence of tenderness throughout. Back: No spinal tenderness. No costovertebral tenderness. Full range of motion. Male : Normal genitalia with no discharge or lesions. Skin: Warm, dry with normal turgor. Normal color with no rashes, no lesions, and no evidence of cellulitis. MS/ Extremity: Pulses equal, no cyanosis. Neurovascular intact. Full, normal range of motion. Neuro: Awake and alert, GCS 15, oriented to person, place, time, and situation. Cranial nerves II-XII grossly intact. Motor strength 5/5 in all extremities. Sensory grossly intact. Cerebellar exam normal. Normal gait. Psych: Awake, alert, with orientation to person, place and time. Behavior, mood, and affect are within normal limits. Vital Signs: 22:40 BP 118 / 84; Pulse 91; Resp 18; Temp 98.2(O); Pulse Ox 100% on R/A; Weight 113.4 kg fc (R); Height 5 ft. 10 in. (177.80 cm) (R); Pain 6/10; 23:40 BP 94 / 59; Pulse 101; Resp 18; Pulse Ox 100% on R/A; Pain 6/10; ed1 12/26 00:15 BP 107 / 74; Pulse 93; Resp 21; Pulse Ox 100% on R/A; Pain 6/10; ed1 01:56 BP 96 / 72; Pulse 61; Resp 15; Pulse Ox 100% on R/A; ed1 12/25 22:40 Body Mass Index 35.87 (113.40 kg, 177.80 cm) Nino Coma Score: 12/25 22:45 Eye Response: spontaneous(4). Verbal Response: oriented(5). Motor Response: obeys ed1 commands(6). Total: 15. 22:45 Eye Response: spontaneous(4). Verbal Response: oriented(5). Motor Response: obeys ed1 commands(6). Total: 15. MDM: 22:52 Patient medically screened. [facility] 23:06 Data reviewed: vital signs, nurses notes, lab test result(s), EKG, radiologic studies, [facility] plain films. 12/25 22:55 Order name: Acetaminophen; Complete Time: 23:46 lp1 12/25 22:55 Order name: Basic Metabolic Panel; Complete Time: 23:46 lp1 12/25 22:55 Order name: CBC with Diff; Complete Time: 23:46 lp1 12/25 22:55 Order name: ETOH Level; Complete Time: 23:46 lp1 12/25 22:55 Order name: Hepatic Function; Complete Time: 23:46 lp1 12/25 22:55 Order name: PT-INR; Complete Time: 23:46 lp1 12/25 22:55 Order name: Ptt, Activated; Complete Time: 23:46 1 12/25 22:55 Order name: Salicylate; Complete Time: 23:46 lp1 12/25 22:55 Order name: EKG; Complete Time: 22:56 lp1 12/25 22:55 Order name: EKG - Nurse/Tech; Complete Time: 22:56 1 12/25 22:55 Order name: IV Saline Lock; Complete Time: 22:56 lp1 12/25 22:55 Order name: Labs collected and sent; Complete Time: 22:56 1 12/25 23:06 Order name: Seizure Precautions; Complete Time: 23:10 [facility] Administered Medications: 23:16 Drug: Fosphenytoin 1500 mg Route: IVPB; Site: right antecubital; ed1 23:40 Follow up: IV Status: Completed infusion; IV Intake: 250ml lp1 23:42 Drug: Valium 5 mg Route: IVP; Site: right forearm; lp1 12/26 00:25 Follow up: Response: No adverse reaction ed1 00:46 Drug: NS 0.9% 1000 ml Route: IV; Rate: 1 bolus; Site: right antecubital; ed1 01:58 Follow up: IV Status: Completed infusion; IV Intake: 1000ml ed1 Disposition: 12/25/18 23:[address] [facility]. Diagnosis are Epilepsy and recurrent seizures, Epilepsy, unspecified, intractable, with status epilepticus. - Reason for transfer: Higher level of care. - Accepting physician is to [facility], neuro. - Condition is Fair. - Problem is new. - Symptoms have improved. Signatures: Dispatcher [employer] Blue Marx MD MD cha Chretien, Felicia, RN RN Meenu Joseph, ESCOBAR RN ed1 Alejandra Schwab, RN RN lp1 Corrections: (The following items were deleted from the chart) 12/25 23:11 23:11 12/25/2018 23:[address] [facility]. Diagnosis is [facility] Epilepsy and recurrent seizures; Epilepsy, unspecified, intractable, with status epilepticus. Reason for transfer: Higher level of care. Accepting physician is to [facility]. Condition is Fair. Problem is new. Symptoms have improved. [facility] 12/26 02:54 12/25 23:11 12/25/2018 23:[address] [facility]. ed1 Diagnosis is Epilepsy and recurrent seizures; Epilepsy, unspecified, intractable, with status epilepticus. Reason for transfer: Higher level of care. [facility]. Condition is Fair. Problem is new. Symptoms have improved. dominik
--- NOTE | 2018-12-25 23:12 | ER ---
Nurse's Notes [facility] Name: Alfie Zavala Age: 28 yrs Sex: Male : 1990 Arrival Date: 12/25/2018 Time: 22:49 Bed 4 Private MD: Diagnosis: Epilepsy and recurrent seizures;Epilepsy, unspecified, intractable, with status epilepticus Presentation: 12/25 22:40 Method Of Arrival: EMS: [facility] 22:40 Acuity: KEN 3 22:40 Presenting complaint: EMS states: that pt has had 5 seizures today. Pt has missed multiple doses of medication over the past couple of days. Transition of care: patient was not received from another setting of care. Onset of symptoms was December 25, 2018. Risk Assessment: Do you want to hurt yourself or someone else? Patient reports no desire to harm self or others. Care prior to arrival: Medication(s) given: Versed 5 mg IM. 22:59 Initial Sepsis Screen: Does the patient meet any 2 criteria? HR > 90 bpm. Yes Does the fc patient have a suspected source of infection? No. Patient's initial sepsis screen is negative. Historical: - Allergies: 23:03 Ativan; fc - Home Meds: 23:03 sumatriptan oral 50 mg as needed [Active]; fluoxetine 40 mg Oral cap 1 cap once daily fc [Active]; topiramate 50 mg Oral CSpX 3 caps twice a day [Active]; diazepam 10 mg Oral tab 1 tab daily prn for Acute Repetitive Seizures, Anxiety [Active]; lamotrigine 200 mg Oral tab 2 tabs once daily [Active]; gabapentin 300 mg Oral cap 1 cap tid prn [Active]; zolpidem 12.5 mg Oral TbMP 1 tab qhs prn [Active]; - PMHx: 23:03 Depression; Headaches; Seizures; status epilepticus; fc - PSHx: 23:03 Appendectomy; fc - Immunization history:: Last tetanus immunization: up to date Flu vaccine is not up to date. - Social history:: Smoking status: Patient/guardian denies using tobacco, Patient/guardian denies using alcohol, street drugs. - Ebola Screening: : Patient negative for fever greater than or equal to 101.5 degrees Fahrenheit, and additional compatible Ebola Virus Disease symptoms Patient denies exposure to infectious person Patient denies travel to an Ebola-affected area in the 21 days before illness onset. - Family history:: not pertinent. Screenin:40 Abuse screen: Denies threats or abuse. Nutritional screening: No deficits noted. fc Tuberculosis screening: No symptoms or risk factors identified. Fall Risk None identified. Assessment: 22:45 General: Appears uncomfortable, Behavior is cooperative. Neuro: Level of Consciousness ed1 is awake, alert, obeys commands, Oriented to person, place, Seizure activity reported prior to arrival. no loss of bowel or bladder. Cardiovascular: Denies chest pain, Heart tones S1 S2 present. Respiratory: Airway is patent Respiratory effort is even, unlabored, Respiratory pattern is regular, symmetrical, Breath sounds are clear bilaterally. GI: Abdomen is non-distended, Bowel sounds present X 4 quads. : No signs and/or symptoms were reported regarding the genitourinary system. EENT: No signs and/or symptoms were reported regarding the EENT system. Derm: Skin is intact, is healthy with good turgor, Skin is dry, Skin is normal, Skin temperature is warm. Musculoskeletal: Circulation, motion, and sensation intact. Range of motion: intact in all extremities. 23:11 Pain: Complains of pain in generalized Pain currently is 6 out of 10 on a pain scale. ed1 Quality of pain is described as aching, Pain began 4 hours ago. Neuro: Seizure activity noted at this time. Type of seizure: tonic-clonic seizure. Seizure lasted approximately 2 minutes. 23:42 Neuro: Seizure activity noted at this time. Type of seizure: tonic-clonic seizure. lp1 Seizure lasted approximately 2 minutes. Patient is post-ictal at this time. Dr. Rodriguez at bedside; Verbal order to administer Valium 5mg IV now;blood noted in mouth, small laceration to tongue. 12/26 00:14 Reassessment: Notified pt of transfer order to [facility]. Pt refused transfer at this ed1 time. Pt states "My doctors are at [place] and that is where I want to go. If I don't go to [place] I would just go home. Dr. Rodriguez notified. 01:56 Reassessment: Patient appears in no apparent distress at this time. Patient and/or ed1 family updated on plan of care and expected duration. Pain level reassessed. Patient is alert, oriented x 3, equal unlabored respirations, skin warm/dry/pink. Report called to ESCOBAR Red at [facility]. Vital Signs: 12/25 22:40 BP 118 / 84; Pulse 91; Resp 18; Temp 98.2(O); Pulse Ox 100% on R/A; Weight 113.4 kg fc (R); Height 5 ft. 10 in. (177.80 cm) (R); Pain 6/10; 23:40 BP 94 / 59; Pulse 101; Resp 18; Pulse Ox 100% on R/A; Pain 6/10; ed1 12/26 00:15 BP 107 / 74; Pulse 93; Resp 21; Pulse Ox 100% on R/A; Pain 6/10; ed1 01:56 BP 96 / 72; Pulse 61; Resp 15; Pulse Ox 100% on R/A; ed1 12/25 22:40 Body Mass Index 35.87 (113.40 kg, 177.80 cm) Ray Coma Score: 12/25 22:45 Eye Response: spontaneous(4). Verbal Response: oriented(5). Motor Response: obeys ed1 commands(6). Total: 15. 22:45 Eye Response: spontaneous(4). Verbal Response: oriented(5). Motor Response: obeys ed1 commands(6). Total: 15. ED Course: 22:40 Arm band placed on Patient placed in an exam room, on a stretcher. fc 22:40 Patient has correct armband on for positive identification. Bed in low position. Call fc light in reach. Side rails up X2. Seizure precautions initiated. ekg monitor tech on. Pulse ox on. NIBP on. 22:49 Patient arrived in ED. fc 22:50 Inserted saline lock: 20 gauge in right forearm, using aseptic technique. Blood lp1 collected. 22:52 Blue Rodriguez MD is Attending Physician. [facility] 22:59 Triage completed. fc 23:10 Meenu Joseph RN is Primary Nurse. ed1 12/26 00:50 Awaiting: Attempt to call report to [facility], not accepting report at this ed1 time because they were just notified about this patient. Asked to call back in 30 minutes. 01:58 transfer transportation to receiving facility. ed1 02:54 No provider procedures requiring assistance completed. Patient admitted, IV remains in ed1 place. intact, No redness/swelling at site. Administered Medications: 12/25 23:16 Drug: Fosphenytoin 1500 mg Route: IVPB; Site: right antecubital; ed1 23:40 Follow up: IV Status: Completed infusion; IV Intake: 250ml lp1 23:42 Drug: Valium 5 mg Route: IVP; Site: right forearm; lp1 12/26 00:25 Follow up: Response: No adverse reaction ed1 00:46 Drug: NS 0.9% 1000 ml Route: IV; Rate: 1 bolus; Site: right antecubital; ed1 01:58 Follow up: IV Status: Completed infusion; IV Intake: 1000ml ed1 Intake: 12/25 23:40 IV: 250ml; Total: 250ml. lp1 12/26 01:58 IV: 1000ml; Total: 1250ml. ed1 Outcome: 12/25 23:11 ER care complete, transfer ordered by . dominik 12/26 02:53 Transferred by ground EMS to [facility], Transfer form completed. ed1 Condition: stable Discharge instructions given to patient, Instructed on the need for transfer, Demonstrated understanding of instructions. 02:54 Patient left the ED. ed1 Signatures: Blue Rodriguez MD MD cha Chretien, Felicia, RN RN Meenu Jsoeph RN RN ed1 Alejandra Schwab, ESCOBAR RN [facility] Corrections: (The following items were deleted from the chart) 00:18 12/25 23:42 Neuro: Seizure activity noted at this time. Type of seizure: tonic-clonic lp1 seizure. Seizure lasted approximately 2 minutes. Patient is post-ictal at this time. Dr. Rodriguez at bedside; Verbal order to administer Valium 5mg IV now lp1
[2018-12-25 23:38] LABS: ALT/SGPT 35 U/L (12-78); AST/SGOT 20 U/L (15-37); Albumin 3.9 g/dL (3.4-5.0); Alkaline Phosphatase 155 U/L (45-117); BUN Blood Urea Nitrogen 17 mg/dL (7-18); Bicarbonate 19 mmol/L (21-32); Bilirubin Direct < 0.1 mg/dL (0-0.2); Bilirubin Total 0.3 mg/dL (0.2-1.0); Glucose Level 93 mg/dL (74-106); Potassium 3.8 mmol/L (3.5-5.1); Protein, Total 7.7 g/dL (6.4-8.2); Sodium Level 142 mmol/L (136-145)
--- OUTSIDE RECORDS SUMMARY | 2018-12-25 23:56 | XMS REPORT ---
:1990 [facility] [address] [place] [address] Care Team Providers Name Role Phone CARSON [...] Value Reference Range Comments CULTURE (BEAKER) (test coar=8058) No growth in 5 days BLOOD [id number] 18:00:00 Test Item Value Reference Range Comments CULTURE (BEAKER) (test vhdt=2891) No growth in 5 days SPUTUM CULTURE + GRAM [id number] 14:21:00 Test Item Value Reference Range Comments CULTURE (BEAKER) (test 4+ Normal respiratory beatrice gjnz=9663) present GRAM STAIN RESULT (BEAKER) 1+ gram positive rods (test fntn=1094) GRAM STAIN RESULT (BEAKER) 1+ gram negative cocci (test rxgf=35458) GRAM STAIN RESULT (BEAKER) 2+ gram positive cocci in chains (test tspm=55242) GRAM STAIN RESULT (BEAKER) 1+ gram positive cocci in (test jqxu=244038) clusters RAD, CHEST, 1 VIEW, NON [id number] 07:27:00Reason for exam:->post intubationShould this be performed [...] Verified Date/Time: 09/13/2018 07:27 :51 Reading Location: [facility] Radiology Reading Room [id number] 04:44:00 Test Item Value Reference Range Comments PHOSPHORUS (BEAKER) (test mskd=037) 2.9 mg/dL 2.3-4.7 Check Serum Phosphorus level 4 hours after IV phosphorus replacement or 8 hours after PO replacementcompleted.[id number] 04:44:00 Test Item Value Reference Range Comments MAGNESIUM (BEAKER) (test qdwg=055) 2.2 mg/dL 1.6-2.6 Check Serum Phosphorus level 4 hours after IV phosphorus replacement or 8 hours after PO replacementcompleted.BASIC METABOLIC [id number] 04:44:00 Test Item Value Reference Range Comments SODIUM (BEAKER) (test 142 meq/L 136-145 kjrp=535) POTASSIUM (BEAKER) (test 3.6 meq/L 3.5-5.1 qgza=703) CHLORIDE (BEAKER) (test 114 meq/L 98-107 hshk=998) CO2 (BEAKER) (test 22 meq/L 22-29 xyju=120) BLOOD UREA NITROGEN 8 mg/dL 7-21 (BEAKER) (test neou=984) CREATININE (BEAKER) (test 0.68 mg/dL 0.57-1.25 crim=593) GLUCOSE RANDOM (BEAKER) 109 mg/dL 70-105 (test wmra=735) CALCIUM (BEAKER) (test 8.4 mg/dL 8.4-10.2 krve=954) EGFR (BEAKER) (test 137 mL/min/1.73 sq m ESTIMATED GFR IS NOT zqtw=6982) ACCURATE CREATININE CLEARANCE IN PREDICTING GLOMERULAR FILTRATION RATE. ESTIMATED GFR IS NOT APPLICABLE FOR DIALYSIS PATIENTS. Check Serum Phosphorus level 4 hours after IV phosphorus replacement or 8 hours after PO replacementcompleted.CBC W/PLT COUNT & AUTO [id number] 04:19:00 Test Item Value Reference Range Comments WHITE BLOOD CELL COUNT (BEAKER) (test mbzg=207) 6.1 K/ L 3.5-10.5 RED BLOOD CELL COUNT (BEAKER) (test iwfy=349) 3.85 M/ L 4.63-6.08 HEMOGLOBIN (BEAKER) (test iidm=413) 11.4 GM/DL 13.7-17.5 HEMATOCRIT (BEAKER) (test vsxd=846) 35.1 % 40.1-51.0 MEAN CORPUSCULAR VOLUME (BEAKER) (test wjtw=044) 91.2 fL 79.0-92.2 MEAN CORPUSCULAR HEMOGLOBIN (BEAKER) (test 29.6 pg 25.7-32.2 hgtd=850) MEAN CORPUSCULAR HEMOGLOBIN CONC (BEAKER) (test 32.5 GM/DL 32.3-36.5 kpcs=010) RED CELL DISTRIBUTION WIDTH (BEAKER) (test 13.7 % 11.6-14.4 uqds=183) PLATELET COUNT (BEAKER) (test djkm=341) 162 K/CU MM 150-450 MEAN PLATELET VOLUME (BEAKER) (test hvsr=654) 10.4 fL 9.4-12.4 NUCLEATED RED BLOOD CELLS (BEAKER) (test 0 /100 WBC 0-0 edjd=634) NEUTROPHILS RELATIVE PERCENT (BEAKER) (test 58 % wljm=982) LYMPHOCYTES RELATIVE PERCENT (BEAKER) (test 32 % kizo=936) MONOCYTES RELATIVE PERCENT (BEAKER) (test 9 % voen=944) EOSINOPHILS RELATIVE PERCENT (BEAKER) (test 1 % cdky=824) BASOPHILS RELATIVE PERCENT (BEAKER) (test 0 % zemq=304) NEUTROPHILS ABSOLUTE COUNT (BEAKER) (test 3.54 K/ L 1.78-5.38 qgoa=408) LYMPHOCYTES ABSOLUTE COUNT (BEAKER) (test 1.93 K/ L 1.32-3.57 vzjj=012) MONOCYTES ABSOLUTE COUNT (BEAKER) (test 0.52 K/ L 0.30-0.82 knnl=203) EOSINOPHILS ABSOLUTE COUNT (BEAKER) (test 0.07 K/ L 0.04-0.54 eskq=315) BASOPHILS ABSOLUTE COUNT (BEAKER) (test 0.02 K/ L 0.01-0.08 bnkk=472) IMMATURE GRANULOCYTES-RELATIVE PERCENT (BEAKER) 0 % 0-1 (test riwg=9042) [id number] 18:41:00 Test Item Value Reference Range Comments POTASSIUM (MAXIMINO) (test xxfs=073) 3.9 meq/L 3.5-5.1 Check Serum Potassium level 2 hours after oral potassium replacement completed or 30 min after intravenous potassium replacement.[id number] 18:41:00 Test Item Value Reference Range Comments MAGNESIUM (MAXIMINO) (test inkn=316) 2.9 mg/dL 1.6-2.6 Check Serum Potassium level 2 hours after oral potassium replacement completed or 30 min after intravenous potassium replacement.EEG MONITORING WITH VIDEO RECORDING EACH 24 [id number] 14:34:00billing for 09/12 AMDATE OF REPORT: ACC: [id number] EE Start time: 09/11 at 0920 AM Stop time: 09/12 at 11:11 AM ICD-10: R56.9 CPT Code: 22063 HISTORY: 28 year old male p/w increased [...] Davis Cintron MD, PhD Attending Neurophysiologist [facility] [place] [id number] 12:15:00 Test Item Value Reference Range Comments MAGNESIUM (BEAKER) (test gjuk=703) 1.9 mg/dL 1.6-2.6 Check Serum Phosphorus level 4 hours after IV phosphorus replacement or 8 hours after PO replacementcompleted.Check Serum Potassium level 2 hours after oral potassium replacement completed or 30 min after intravenous potassium replacement.[id number] 12:15:00 Test Item Value Reference Range Comments PHOSPHORUS (BEAKER) (test tpsx=071) 2.0 mg/dL 2.3-4.7 Check Serum Phosphorus level 4 hours after IV phosphorus replacement or 8 hours after PO replacementcompleted.Check Serum Potassium level 2 hours after oral potassium replacement completed or 30 min after intravenous potassium replacement.[id number] 12:14:00 Test Item Value Reference Range Comments POTASSIUM (BEAKER) (test vkoj=919) 3.6 meq/L 3.5-5.1 Check Serum Phosphorus level 4 hours after IV phosphorus replacement or 8 hours after PO replacementcompleted.Check Serum Potassium level 2 hours after oral potassium replacement completed or 30 min after intravenous potassium replacement.CALCIUM, [id number] 11:49:00 Test Item Value Reference Range Comments CALCIUM IONIZED (BEAKER) (test xfud=139) 1.09 mmol/L 1.12-1.27 PH, BLOOD (BEAKER) (test thkp=6397) 7.46 Check serum Ionized Calcium level after 4 hours after IV Calcium replacement.URINE [id number] 08:18:00 Test Item Value Reference Range Comments CULTURE (BEAKER) (test kjyp=4529) No growth [id number] 03:59:00 Test Item Value Reference Range Comments PHOSPHORUS (BEAKER) (test tbeu=633) 2.5 mg/dL 2.3-4.7 Check Serum Phosphorus level 4 hours after IV phosphorus replacement or 8 hours after PO replacementcompleted.[id number] 03:59:00 Test Item Value Reference Range Comments MAGNESIUM (BEAKER) (test zbfv=398) 2.1 mg/dL 1.6-2.6 Check Serum Phosphorus level 4 hours after IV phosphorus replacement or 8 hours after PO replacementcompleted.BASIC METABOLIC [id number] 03:59:00 Test Item Value Reference Range Comments SODIUM (BEAKER) (test 143 meq/L 136-145 zuuq=933) POTASSIUM (BEAKER) (test 3.3 meq/L 3.5-5.1 mpkx=209) CHLORIDE (BEAKER) (test 112 meq/L 98-107 klec=342) CO2 (BEAKER) (test 25 meq/L 22-29 bisj=664) BLOOD UREA NITROGEN 5 mg/dL 7-21 (BEAKER) (test odjy=072) CREATININE (BEAKER) (test 0.65 mg/dL 0.57-1.25 reig=653) GLUCOSE RANDOM (BEAKER) 92 mg/dL 70-105 (test bcbf=222) CALCIUM (BEAKER) (test 8.4 mg/dL 8.4-10.2 djor=080) EGFR (BEAKER) (test 144 mL/min/1.73 sq m ESTIMATED GFR IS NOT tpsv=6859) ACCURATE CREATININE CLEARANCE IN PREDICTING GLOMERULAR FILTRATION RATE. ESTIMATED GFR IS NOT APPLICABLE FOR DIALYSIS PATIENTS. Check Serum Phosphorus level 4 hours after IV phosphorus replacement or 8 hours after PO replacementcompleted.CBC W/PLT COUNT & AUTO [id number] 03:41:00 Test Item Value Reference Range Comments WHITE BLOOD CELL COUNT (BEAKER) (test poii=919) 8.0 K/ L 3.5-10.5 RED BLOOD CELL COUNT (BEAKER) (test wlcy=236) 3.69 M/ L 4.63-6.08 HEMOGLOBIN (BEAKER) (test wkjj=152) 11.0 GM/DL 13.7-17.5 HEMATOCRIT (BEAKER) (test vsxm=512) 33.5 % 40.1-51.0 MEAN CORPUSCULAR VOLUME (BEAKER) (test ntrr=144) 90.8 fL 79.0-92.2 MEAN CORPUSCULAR HEMOGLOBIN (BEAKER) (test 29.8 pg 25.7-32.2 vnod=841) MEAN CORPUSCULAR HEMOGLOBIN CONC (BEAKER) (test 32.8 GM/DL 32.3-36.5 vbqz=451) RED CELL DISTRIBUTION WIDTH (BEAKER) (test 13.5 % 11.6-14.4 iisj=883) PLATELET COUNT (BEAKER) (test tkuv=699) 153 K/CU MM 150-450 MEAN PLATELET VOLUME (BEAKER) (test ggnt=342) 10.5 fL 9.4-12.4 NUCLEATED RED BLOOD CELLS (BEAKER) (test 0 /100 WBC 0-0 wwhk=518) NEUTROPHILS RELATIVE PERCENT (BEAKER) (test 62 % wrgz=834) LYMPHOCYTES RELATIVE PERCENT (BEAKER) (test 29 % fqtl=546) MONOCYTES RELATIVE PERCENT (BEAKER) (test 8 % qesj=645) EOSINOPHILS RELATIVE PERCENT (BEAKER) (test 1 % rhbf=180) BASOPHILS RELATIVE PERCENT (BEAKER) (test 0 % vabz=329) NEUTROPHILS ABSOLUTE COUNT (BEAKER) (test 4.92 K/ L 1.78-5.38 sdoa=922) LYMPHOCYTES ABSOLUTE COUNT (BEAKER) (test 2.31 K/ L 1.32-3.57 dera=794) MONOCYTES ABSOLUTE COUNT (BEAKER) (test 0.65 K/ L 0.30-0.82 fxvm=394) EOSINOPHILS ABSOLUTE COUNT (BEAKER) (test 0.06 K/ L 0.04-0.54 cpme=303) BASOPHILS ABSOLUTE COUNT (BEAKER) (test 0.02 K/ L 0.01-0.08 jhrr=951) IMMATURE GRANULOCYTES-RELATIVE PERCENT (BEAKER) 0 % 0-1 (test zupw=4831) POCT-GLUCOSE [id number] 23:55:00 Test Item Value Reference Range Comments POC-GLUCOSE METER (BEAKER) 94 mg/dL 70-110 TESTED AT [facility] [address] [facility] (test osnd=8343) [facility] [address] [id number] 18:08:00 Test Item Value Reference Range Comments POTASSIUM (BEAKER) (test gzrl=190) 3.4 meq/L 3.5-5.1 Check Serum Potassium level 2 hours after oral potassium replacement completed or 30 min after intravenous potassium replacement.EEG MONITORING WITH VIDEO RECORDING EACH 24 [id number] 09:23:00DATE OF REPORT: 09/11/2018ACC: [id number]: Start time: 09/10 at 15:05Stop time: 09/11 at 09:20 AMICD-10 : R56.9CPT Code: 32792 HISTORY: 28 yo male with h/o seizures [...] MDNeurophysiology Fellow Joao Blum M.D., FACNSProfessor of NeurologyBrotman Medical CenterDipresbyterian santa fe medical centerorEureka Community [facility] Epilepsy [facility] Neuro[facility]iology Lab Electronically signed by:JOAO BLUM on 2017 09:23 AMRAD, CHEST, 1 VIEW, NON [id number] 07:32:00Reason for exam:-&gt ;post intubationShould this be [...] is magnified by technique. Signed: Kody Vuong [facility] Verified Date/Time: 09/11/2018 07:32: 46 Reading Location: [facility] B1 C013V Neuro Reading Room POCT-GLUCOSE [id number] 06: 30:00 Test Item Value Reference Range Comments POC-GLUCOSE METER (BEAKER) 111 mg/dL 70-110 TESTED AT [facility] [address] [facility] (test lpgp=7517) [facility] [address] BASIC METABOLIC [id number] 06:06:00 Test Item Value Reference Range Comments SODIUM (BEAKER) (test 138 meq/L 136-145 drvl=441) POTASSIUM (BEAKER) (test 3.4 meq/L 3.5-5.1 dvmx=494) CHLORIDE (BEAKER) (test 110 meq/L 98-107 felr=654) CO2 (BEAKER) (test 20 meq/L 22-29 ewcj=945) BLOOD UREA NITROGEN 8 mg/dL 7-21 (BEAKER) (test lkfb=281) CREATININE (BEAKER) (test 0.70 mg/dL 0.57-1.25 lggt=579) GLUCOSE RANDOM (BEAKER) 107 mg/dL 70-105 (test miov=626) CALCIUM (BEAKER) (test 8.4 mg/dL 8.4-10.2 sroe=427) EGFR (BEAKER) (test 132 mL/min/1.73 sq m ESTIMATED GFR IS NOT ipav=2769) ACCURATE CREATININE CLEARANCE IN PREDICTING GLOMERULAR FILTRATION RATE. ESTIMATED GFR IS NOT APPLICABLE FOR DIALYSIS PATIENTS. CBC W/PLT COUNT & AUTO [id number] 03:47:00 Test Item Value Reference Range Comments WHITE BLOOD CELL COUNT (BEAKER) (test ahmy=128) 7.9 K/ L 3.5-10.5 RED BLOOD CELL COUNT (BEAKER) (test kjrn=138) 3.85 M/ L 4.63-6.08 HEMOGLOBIN (BEAKER) (test cvyj=864) 11.4 GM/DL 13.7-17.5 HEMATOCRIT (BEAKER) (test tuxc=401) 34.7 % 40.1-51.0 MEAN CORPUSCULAR VOLUME (BEAKER) (test ikyi=362) 90.1 fL 79.0-92.2 MEAN CORPUSCULAR HEMOGLOBIN (BEAKER) (test 29.6 pg 25.7-32.2 tthj=599) MEAN CORPUSCULAR HEMOGLOBIN CONC (BEAKER) (test 32.9 GM/DL 32.3-36.5 xzlc=197) RED CELL DISTRIBUTION WIDTH (BEAKER) (test 14.2 % 11.6-14.4 ewqy=942) PLATELET COUNT (BEAKER) (test xicd=060) 163 K/CU MM 150-450 MEAN PLATELET VOLUME (BEAKER) (test negm=374) 10.3 fL 9.4-12.4 NUCLEATED RED BLOOD CELLS (BEAKER) (test 0 /100 WBC 0-0 mslx=146) NEUTROPHILS RELATIVE PERCENT (BEAKER) (test 68 % dahn=711) LYMPHOCYTES RELATIVE PERCENT (BEAKER) (test 23 % lckv=516) MONOCYTES RELATIVE PERCENT (BEAKER) (test 8 % lsyr=511) EOSINOPHILS RELATIVE PERCENT (BEAKER) (test 0 % ddso=493) BASOPHILS RELATIVE PERCENT (BEAKER) (test 0 % mitq=442) NEUTROPHILS ABSOLUTE COUNT (BEAKER) (test 5.41 K/ L 1.78-5.38 ezaw=710) LYMPHOCYTES ABSOLUTE COUNT (BEAKER) (test 1.79 K/ L 1.32-3.57 gllt=568) MONOCYTES ABSOLUTE COUNT (BEAKER) (test 0.67 K/ L 0.30-0.82 pzby=988) EOSINOPHILS ABSOLUTE COUNT (BEAKER) (test 0.02 K/ L 0.04-0.54 eiwo=119) BASOPHILS ABSOLUTE COUNT (BEAKER) (test 0.03 K/ L 0.01-0.08 fmiv=747) IMMATURE GRANULOCYTES-RELATIVE PERCENT (BEAKER) 0 % 0-1 (test evdn=8523) BLOOD GAS, [id number] 03:32:00 Test Item Value Reference Range Comments PH ARTERIAL (BEAKER) (test nnnv=369) 7.38 7.35-7.45 PCO2 ARTERIAL (BEAKER) (test jyuj=416) 42 mmHg 35-45 PO2 ARTERIAL (BEAKER) (test oihm=248) 120 mmHg 80-90 O2 SATURATION ARTERIAL (BEAKER) (test gdmk=656) 98.3 % 96.0-97.0 HCO3 ARTERIAL (BEAKER) (test anix=012) 24 mmol/L 21-29 BASE EXCESS ARTERIAL (BEAKER) (test rrpc=443) -0.8 mmol/L -2.0-3.0 PATIENT TEMPERATURE (BEAKER) (test bntg=0903) 37.0 C FIO2 (BEAKER) (test guog=1465) 40.0 % POCT-GLUCOSE [id number] 01:01:00 Test Item Value Reference Range Comments POC-GLUCOSE METER (BEAKER) 91 mg/dL 70-110 TESTED AT [facility] [address] [facility] (test rzdd=7887) [facility] [address] TROPONIN [id number] 17:18:00 Test Item Value Reference Range Comments TROPONIN I (BEAKER) (test yelr=182) < ng/mL 0.00-0.03 Troponin I (TnI) levels [...] neurological disease, and persistent tachyarrhythmia.EEG AWAKE AND [id number] 15:50: 00Reason for exam:->Status epilepticus, c EEG for evaluation of subclinical seizures Should this beperformed at the bedside?->YesDATE OF REPORT: 2017ACC: [id number]: [id number] time: 14:47Stop time: 15:04ICD-10: R56.9CPTCode: 39210 HISTORY: 28 yo male with h/o seizures [...] MDNeurophysiology Fellow Joao Blum M.D., FACNSProfessor of NeurologyBrotman Medical CenterDirector, [facility] Epilepsy [place] BLOOD GAS, [id number] 12:32:00 Test Item Value Reference Range Comments PH ARTERIAL (BEAKER) (test kgog=819) 7.37 7.35-7.45 PCO2 ARTERIAL (BEAKER) (test idxk=804) 38 mmHg 35-45 PO2 ARTERIAL (BEAKER) (test oggd=966) 208 mmHg 80-90 O2 SATURATION ARTERIAL (BEAKER) (test teyb=321) 99.4 % 96.0-97.0 HCO3 ARTERIAL (BEAKER) (test rxve=353) 21 mmol/L 21-29 BASE EXCESS ARTERIAL (BEAKER) (test qlzi=972) -3.4 mmol/L -2.0-3.0 PATIENT TEMPERATURE (BEAKER) (test xwyo=5292) 37.1 C FIO2 (BEAKER) (test bddt=2544) 40.0 % RAD, ABDOMEN/KUB, 1 VIEW [id number] 12:12:00Reason for exam:->corpakShould this be performed at the bedside?->YesFINAL REPORT AP abdomen, three images HISTORY: Feeding tube COMPARISON: 11/01/2015 IMPRESSION: Feeding tube present with tip in abdomen. Bowel gas pattern appears grossly nonobstructive. Signed: Edgardo Guzman MDReport Verified Date/Time: 2017 12:12:56 Reading Location: [address] Consult Reading Room RAD , CHEST, 1 VIEW, NON [id number] 10:40:00Reason for exam:->post intubationShould this be performed at the bedside?->YesFINAL REPORT AP chest HISTORY: Intubation COMPARISON: None IMPRESSION: Endotracheal tube in satisfactory position. Right IJ central venous catheter at mid SVC. Heart size normal. Mild perihilar atelectasis. Lungs otherwise clear. No pneumothorax. Signed: Edgardo Guzman MDReport Verified Date/Time: 2017 10:40:47 Reading Location: [facility] B1 C013X Ortho Consult Reading Room TROPONIN [id number] 09:21:00 Test Item Value Reference Range Comments TROPONIN I (BEAKER) (test ufen=888) < ng/mL 0.00-0.03 Troponin I (TnI) levels [...] failure, acidosis, acute neurological disease, and persistent tachyarrhythmia.[id number] 09:19:00 Test Item Value Reference Range Comments CARBAMAZEPINE LEVEL (BEAKER) (test nabc=081) 2.2 ug/mL 4.0-12.0 PHENYTOIN LEVEL, [id number] 09:18:00 Test Item Value Reference Range Comments PHENYTOIN (DILANTIN) (BEAKER) (test eovo=999) 10.8 ug/mL 10.0-20.0 [id number] 09:03:00 Test Item Value Reference Range Comments PARTIAL THROMBOPLASTIN TIME (BEAKER) (test 27.5 seconds 22.5-36.0 zspo=868) PROTHROMBIN TIME/[id number] 09:02:00 Test Item Value Reference Range Comments PROTIME (BEAKER) (test duhu=112) 14.6 seconds 11.7-14.7 INR (BEAKER) (test mbla=963) 1.1 <=5.9 RECOMMENDED COUMADIN/WARFARIN INR THERAPY RANGESSTANDARD DOSE: 2.0 - 3.0 Includes: PROPHYLAXIS forvenous thrombosis, systemic embolization; TREATMENT for venous thrombosis and/or pulmonary embolus.HIGH RISK: Target INR is 2.5-3.5 for patients with mechanical heart valves.PLATELET [id number] 08:53:00 Test Item Value Reference Range Comments PLATELET COUNT (BEAKER) (test emlq=582) 184 K/CU MM 150-450 BASIC METABOLIC [id number] 07:07:00 Test Item Value Reference Range Comments SODIUM (BEAKER) (test 140 meq/L 136-145 lvqb=986) POTASSIUM (BEAKER) (test 4.0 meq/L 3.5-5.1 leye=292) CHLORIDE (BEAKER) (test 115 meq/L 98-107 gruc=022) CO2 (BEAKER) (test 20 meq/L 22-29 rrzs=527) BLOOD UREA NITROGEN 7 mg/dL 7-21 (BEAKER) (test oyyh=149) CREATININE (BEAKER) (test 0.83 mg/dL 0.57-1.25 fikq=677) GLUCOSE RANDOM (BEAKER) 95 mg/dL 70-105 (test tvyu=542) CALCIUM (BEAKER) (test 8.6 mg/dL 8.4-10.2 pcqr=475) EGFR (BEAKER) (test 109 mL/min/1.73 sq m ESTIMATED GFR IS NOT bsxm=2374) ACCURATE CREATININE CLEARANCE IN PREDICTING GLOMERULAR FILTRATION RATE. ESTIMATED GFR IS NOT APPLICABLE FOR DIALYSIS PATIENTS. CREATINE KINASE (CK)2018-08-13 07:07:00 Test Item Value Reference Range Comments CREATINE KINASE TOTAL (BEAKER) (test oxnn=600) 1709 U/L 29-200 BASIC METABOLIC [id number] 05:19:00 Test Item Value Reference Range Comments SODIUM (BEAKER) (test 141 meq/L 136-145 qhyd=635) POTASSIUM (BEAKER) (test 4.1 meq/L 3.5-5.1 wori=560) CHLORIDE (BEAKER) (test 117 meq/L 98-107 ewrc=825) CO2 (BEAKER) (test 19 meq/L 22-29 zvlh=910) BLOOD UREA NITROGEN 11 mg/dL 7-21 (BEAKER) (test buia=643) CREATININE (BEAKER) (test 0.84 mg/dL 0.57-1.25 gqyp=103) GLUCOSE RANDOM (BEAKER) 97 mg/dL 70-105 (test gice=034) CALCIUM (BEAKER) (test 8.8 mg/dL 8.4-10.2 aplt=550) EGFR (BEAKER) (test 107 mL/min/1.73 sq m ESTIMATED GFR IS NOT cgrf=1149) ACCURATE CREATININE CLEARANCE IN PREDICTING GLOMERULAR FILTRATION RATE. ESTIMATED GFR IS NOT APPLICABLE FOR DIALYSIS PATIENTS. CREATINE KINASE (CK)2018-08-12 05:19:00 Test Item Value Reference Range Comments CREATINE KINASE TOTAL (BEAKER) (test krry=647) 1766 U/L 29-200 POCT-GLUCOSE [id number] 17:02:00 Test Item Value Reference Range Comments POC-GLUCOSE METER (BEAKER) 93 mg/dL 70-110 TESTED AT [facility] [address] [facility] (test qjiy=0462) [facility] [address] [id number] 04:54:00 Test Item Value Reference Range Comments MAGNESIUM (BEAKER) (test zxht=916) 2.1 mg/dL 1.6-2.6 BASIC METABOLIC [id number] 04:54:00 Test Item Value Reference Range Comments SODIUM (BEAKER) (test 142 meq/L 136-145 hwuj=503) POTASSIUM (BEAKER) (test 4.4 meq/L 3.5-5.1 vrzw=379) CHLORIDE (BEAKER) (test 116 meq/L 98-107 zohr=908) CO2 (BEAKER) (test 22 meq/L 22-29 mmed=834) BLOOD UREA NITROGEN 8 mg/dL 7-21 (BEAKER) (test uupc=937) CREATININE (BEAKER) (test 0.84 mg/dL 0.57-1.25 uodx=999) GLUCOSE RANDOM (BEAKER) 88 mg/dL 70-105 (test sjpt=659) CALCIUM (BEAKER) (test 9.0 mg/dL 8.4-10.2 ehyw=964) EGFR (BEAKER) (test 107 mL/min/1.73 sq m ESTIMATED GFR IS NOT bqhd=7233) ACCURATE CREATININE CLEARANCE IN PREDICTING GLOMERULAR FILTRATION RATE. ESTIMATED GFR IS NOT APPLICABLE FOR DIALYSIS PATIENTS. CREATINE KINASE (CK)2018-08-11 04:54:00 Test Item Value Reference Range Comments CREATINE KINASE TOTAL (BEAKER) (test gova=479) 2031 U/L 29-200 EEG AWAKE AND [id number] 16:50:00Reason for exam:->seizure disorderNeurophysiology Electroencephalogram Report DATE OF REPORT: 08/10/18Date( s) of Study: 08/10/2018ACC: [id number]: [id number] time: 1517 hrsStop time: 1537 hrsICD-10: R56.9 Unspecified ConvulsionsCPT Code: 35758 EEG: awake and drowsy <40 min HISTORY: [...] Fellow Shamir Najera MD, MSClinical Neurophysiology/Epilepsy Attending [facility] Neurophysiology Service URINALYSIS W/ [id number] 05: 20:00 Test Item Value Reference Range Comments COLOR (BEAKER) (test kyzv=732) Yellow CLARITY (BEAKER) (test ofut=204) Clear SPECIFIC GRAVITY UA (BEAKER) (test daxt=322) 1.011 1.001-1.035 PH UA (BEAKER) (test flsb=044) 7.0 5.0-8.0 PROTEIN UA (BEAKER) (test ccox=413) Negative Negative GLUCOSE UA (BEAKER) (test jhsx=260) Negative Negative KETONES UA (BEAKER) (test eijo=725) Negative Negative BILIRUBIN UA (BEAKER) (test eimk=582) Negative Negative BLOOD UA (BEAKER) (test hqgv=776) Negative Negative NITRITE UA (BEAKER) (test hxki=982) Negative Negative LEUKOCYTE ESTERASE UA (BEAKER) (test cwxk=030) Negative Negative UROBILINOGEN UA (BEAKER) (test msxc=303) 2.0 mg/dL 0.2-1.0 RBC UA (BEAKER) (test vimo=912) < /HPF WBC UA (BEAKER) (test zuuu=286) 0 /HPF SOURCE(BEAKER) (test xtpw=4109) [id number] 03:17:00 Test Item Value Reference Range Comments CARBAMAZEPINE LEVEL (BEAKER) (test rndc=851) < ug/mL 4.0-12.0 [id number] 02:33:00 Test Item Value Reference Range Comments PHOSPHORUS (BEAKER) (test tpnv=308) 2.8 mg/dL 2.3-4.7 [id number] 02:33:00 Test Item Value Reference Range Comments MAGNESIUM (BEAKER) (test cryj=406) 2.2 mg/dL 1.6-2.6 BASIC METABOLIC [id number] 02:33:00 Test Item Value Reference Range Comments SODIUM (BEAKER) (test 138 meq/L 136-145 hzlb=257) POTASSIUM (BEAKER) (test 3.4 meq/L 3.5-5.1 kmxa=929) CHLORIDE (BEAKER) (test 109 meq/L 98-107 lydk=988) CO2 (BEAKER) (test 21 meq/L 22-29 wxbd=654) BLOOD UREA NITROGEN 16 mg/dL 7-21 (BEAKER) (test masj=081) CREATININE (BEAKER) (test 0.83 mg/dL 0.57-1.25 xmak=276) GLUCOSE RANDOM (BEAKER) 105 mg/dL 70-105 (test flmg=109) CALCIUM (BEAKER) (test 8.7 mg/dL 8.4-10.2 vyig=279) EGFR (BEAKER) (test 109 mL/min/1.73 sq m ESTIMATED GFR IS NOT ubdy=2252) ACCURATE CREATININE CLEARANCE IN PREDICTING GLOMERULAR FILTRATION RATE. ESTIMATED GFR IS NOT APPLICABLE FOR DIALYSIS PATIENTS. HEPATIC FUNCTION [id number] 02:33:00 Test Item Value Reference Range Comments TOTAL PROTEIN (BEAKER) (test pddq=266) 6.5 gm/dL 6.0-8.3 ALBUMIN (BEAKER) (test cbmv=7113) 3.9 g/dL 3.5-5.0 BILIRUBIN TOTAL (BEAKER) (test nmtu=424) 0.8 mg/dL 0.2-1.2 BILIRUBIN DIRECT (BEAKER) (test zvpl=781) 0.3 mg/dL 0.1-0.5 ALKALINE PHOSPHATASE (BEAKER) (test gcfr=044) 85 U/L 40-150 AST (SGOT) (BEAKER) (test rvxa=910) 43 U/L 5-34 ALT (SGPT) (BEAKER) (test nuoy=428) 33 U/L 6-55 CREATINE KINASE (CK)2018-08-10 02:33:00 Test Item Value Reference Range Comments CREATINE KINASE TOTAL (BEAKER) (test miqw=065) 968 U/L 29-200 C-REACTIVE [id number] 02:33:00 Test Item Value Reference Range Comments C-REACTIVE PROTEIN (BEAKER) (test aubz=612) 0.45 mg/dL 0.00-0.50 LACTIC ACID, VENOUS, WHOLE [id number] 02:26:00 Test Item Value Reference Range Comments LACTATE BLOOD VENOUS (2) 1.0 mmol/L 0.5-2.2 Specimen slightly hemolyzed (BEAKER) (test jdtv=2872) Effective 03/18/2016: Units/Reference Range ChangeNew: 0.5-2.2 mmol/L Previous: 5 -20 mg/dLCBC W/PLT COUNT & AUTO [id number] 02:05:00 Test Item Value Reference Range Comments WHITE BLOOD CELL COUNT (BEAKER) (test ijzz=686) 7.7 K/ L 3.5-10.5 RED BLOOD CELL COUNT (BEAKER) (test bkqv=435) 4.16 M/ L 4.63-6.08 HEMOGLOBIN (BEAKER) (test cvxy=245) 12.3 GM/DL 13.7-17.5 HEMATOCRIT (BEAKER) (test ialz=539) 36.8 % 40.1-51.0 MEAN CORPUSCULAR VOLUME (BEAKER) (test ywsz=534) 88.5 fL 79.0-92.2 MEAN CORPUSCULAR HEMOGLOBIN (BEAKER) (test 29.6 pg 25.7-32.2 paby=889) MEAN CORPUSCULAR HEMOGLOBIN CONC (BEAKER) (test 33.4 GM/DL 32.3-36.5 fjjp=494) RED CELL DISTRIBUTION WIDTH (BEAKER) (test 13.4 % 11.6-14.4 ohvt=167) PLATELET COUNT (BEAKER) (test yqrc=228) 195 K/CU MM 150-450 MEAN PLATELET VOLUME (BEAKER) (test betm=531) 11.2 fL 9.4-12.4 NUCLEATED RED BLOOD CELLS (BEAKER) (test 0 /100 WBC 0-0 rsjo=602) NEUTROPHILS RELATIVE PERCENT (BEAKER) (test 58 % ehkv=825) LYMPHOCYTES RELATIVE PERCENT (BEAKER) (test 30 % ycay=363) MONOCYTES RELATIVE PERCENT (BEAKER) (test 10 % sgkh=342) EOSINOPHILS RELATIVE PERCENT (BEAKER) (test 2 % sscr=301) BASOPHILS RELATIVE PERCENT (BEAKER) (test 1 % ketk=847) NEUTROPHILS ABSOLUTE COUNT (BEAKER) (test 4.46 K/ L 1.78-5.38 pwww=564) LYMPHOCYTES ABSOLUTE COUNT (BEAKER) (test 2.31 K/ L 1.32-3.57 kvgx=382) MONOCYTES ABSOLUTE COUNT (BEAKER) (test 0.74 K/ L 0.30-0.82 rtym=063) EOSINOPHILS ABSOLUTE COUNT (BEAKER) (test 0.13 K/ L 0.04-0.54 pzbk=239) BASOPHILS ABSOLUTE COUNT (BEAKER) (test 0.04 K/ L 0.01-0.08 zhcg=046) IMMATURE GRANULOCYTES-RELATIVE PERCENT (BEAKER) 0 % 0-1 (test awap=5177) POCT-BLOOD GASES, [id number] 01:50:00 Test Item Value Reference Range Comments TEMP, CELSIUS-POC (BEAKER) 37.0 (test kzef=9961) FIO2-POC (BEAKER) (test TESTED AT [address] ntnj=8101) [place] [address] PH, ARTERIAL-POC (BEAKER) 7.396 7.350-7.450 (test kvsy=7347) PCO2, ARTERIAL-POC (BEAKER) 35.3 mm Hg 35.0-45.0 (test iiay=9975) PO2, ARTERIAL-POC (BEAKER) 104.0 mm Hg 80.0-90.0 (test kizt=9434) SO2, ARTERIAL-POC (BEAKER) 98.0 % 96.0-97.0 (test ojag=4588) HCO3, ARTERIAL-POC (BEAKER) 21.7 meq/L 21.0-29.0 (test jyzz=0544) BASE EXCESS, ARTERIAL-POC -3.0 meq/L -2.0-3.0 (BEAKER) (test wkld=3681) [id number] 01:50:00 Test Item Value Reference Range Comments POC-SODIUM (BEAKER) (test 140 meq/L 135-148 TESTED AT [address] mhpr=7414) [place] [address] [id number] 01:50:00 Test Item Value Reference Range Comments POC-POTASSIUM (BEAKER) (test 3.4 meq/L 3.6-5.5 TESTED AT [place] [address] [address] gyzc=9484) [place] [address] [id number] 01:50:00 Test Item Value Reference Range Comments POC-GLUCOSE (BEAKER) (test 105 mg/dL 70-110 TESTED AT [place] [address] [address] wziv=4804) [place] [address] POCT-CALCIUM [id number] 01:50:00 Test Item Value Reference Range Comments POC-CALCIUM IONIZED (BEAKER) 1.15 mmol/L 1.12-1.27 TESTED AT [address] (test nmkz=2942) [place] [address] [id number] 01:50:00 Test Item Value Reference Range Comments POC-HEMATOCRIT (BEAKER) (test 35 % 40-50 TESTED AT [address] ttzg=3430) [place] [address] [id number] 01:50:00 Test Item Value Reference Range Comments POC-HEMOGLOBIN ([facility]) 11.9 g/dL 13.0-16.8 TESTED AT [address] (test grtw=6663) [place] [address]TESTED AT [place] [address] POCT-LACTIC ACID, [id number] 01:49:00 Test Item Value Reference Range Comments POC-LACTIC ACID, ARTERIAL 0.9 mmol/L 0.4-1.3 TESTED AT [address] ([facility]) (test uzqx=1891) [place] [address]
--- OUTSIDE RECORDS SUMMARY | 2018-12-25 23:56 | XMS REPORT | Clinical Summary ---
:1990 Author Organization [facility] Address [address] [place] [address] Care Team Providers Name Role Phone Andrew [...] Encounters Date Type Specialty Care Team Description 12/25/2018 Hospital Encounter 09/11/2018 Travel 09/10/2018 - Hospital General Internal [facility], Status epilepticus (HCC); 09/13/2018 Encounter Medicine Chandler [...] 08/10/2018 Orders Only General Internal Medicine after 12/24/2017 Immunizations Name Dates Previously Given Next Due [...] 390 ms QTC Calculation(Bazett) 417 ms P K[place]lotus 14 degrees R K[place]lotus 45 degrees T [place] 16 degrees Normal sinus rhythm Normal ECG [...] ARTERIAL Routine 08/10/2018 1:35 AM CDT after 12/24/2017 Results RHYTHM STRIP - SCAN (09/14/2018 1:00 PM CDT)Only the most recent of2 resultswithin the time period is included. Narrative Performed At XR chest 1 view portable / bedside (09/13/2018 3:47 AM CDT)Only the most recent of3 resultswithin the time period is included. Narrative Performed At FINAL REPORT [facility] HISTORY : post intubation. Comparison: 09/11/2018 [...] MD Report Verified Date/Time:09/13/2018 07:27:51 Reading Location: [facility] Radiology Reading Room Procedure Note Interface, External [...] Report Verified Date/Time: 09/13/2018 07:27:51 Reading Location: [facility] Radiology Reading Room Performing Organization Address City/State/Zipcode Phone Number [facility] CBC with platelet count + automated diff (09/13/2018 3:37 AM CDT)Only the most recent of4 resultswithin the time period is included. WBC 6.1 3.5 - 10.5 K/L [facility] RBC 3.85 (L) 4.63 - 6.08 M/L [facility] Hemoglobin 11.4 (L) 13.7 - 17.5 GM/DL [facility] Hematocrit 35.1 (L) 40.1 - 51.0 % [facility] MCV 91.2 79.0 - 92.2 fL [facility] MCH 29.6 25.7 - 32.2 pg [facility] MCHC 32.5 32.3 - 36.5 GM/DL [facility] RDW 13.7 11.6 - 14.4 % [facility] Platelets 162 150 - 450 K/CU MM [facility] MPV 10.4 9.4 - 12.4 fL [facility] nRBC 0 0 - 0 /100 WBC [facility] % Neutros 58 % [facility] % Lymphs 32 % [facility] % Monos 9 % [facility] % Eos 1 % [facility] % Baso 0 % [facility] # Neutros 3.54 1.78 - 5.38 K/L [facility] # Lymphs 1.93 1.32 - 3.57 K/L [facility] # Monos 0.52 0.30 - 0.82 K/L [facility] # Eos 0.07 0.04 - 0.54 K/L [facility] # Baso 0.02 0.01 - 0.08 K/L [facility] Immature Granulocytes-Relative 0 0 - 1 % [facility] Specimen Blood Performing Organization Address City/State/Zipcode Phone Number [facility] [address] [place] [address] [phone] CENTER Phosphorus (09/13/2018 3:37 AM CDT)Only the most recent of4 resultswithin the time period is included. Phosphorus 2.9 2.3 - 4.7 mg/dL [facility] Specimen Blood Narrative Performed At Check Serum Phosphorus level 4 hours after IV [facility] phosphorus replacement or 8 hours after PO replacement completed. Performing Organization Address City/State/Zipcode Phone Number [facility] [address] [place] [address] [place] Magnesium (09/13/2018 3:37 AM CDT)Only the most recent of6 resultswithin the time period is included. Magnesium 2.2 1.6 - 2.6 mg/dL [facility] Specimen Blood Narrative Performed At Check Serum Phosphorus level 4 hours after IV [facility] phosphorus replacement or 8 hours after PO replacement completed. Performing Organization Address [facility] Phone Number [address] [address] [phone] [place] Basic Metabolic Panel (09/13/2018 3:37 AM CDT)Only the most recent of7 resultswithin the time period is included. Sodium 142 136 - 145 meq/L [facility] Potassium 3.6 3.5 - 5.1 meq/L [facility] Chloride 114 (H) 98 - 107 meq/L [facility] CO2 22 22 - 29 meq/L [facility] BUN 8 7 - 21 mg/dL [facility] Creatinine 0.68 0.57 - 1.25 mg/dL [facility] Glucose 109 (H) 70 - 105 mg/dL [facility] Calcium 8.4 8.4 - 10.2 mg/dL [facility] EGFR 137Comment: ESTIMATED GFR IS mL/min/1.73 sq m [facility] NOT ACCURATE [facility] CLEARANCE IN PREDICTING GLOMERULAR FILTRATION RATE. ESTIMATED GFR IS NOT APPLICABLE FOR DIALYSIS PATIENTS. Specimen Blood Narrative Performed At Check Serum Phosphorus level 4 hours after IV [facility] phosphorus replacement or 8 hours after PO replacement completed. Performing Organization Address City/[facility] Phone Number [address] [address] [phone] [place] Potassium (09/12/2018 6:02 PM CDT)Only the most recent of3 resultswithin the time period is included. Potassium 3.9 3.5 - 5.1 meq/L [facility] Specimen Blood - Arm, Left Narrative Performed At Check Serum Potassium level 2 hours after [facility] oral potassium replacement completed or 30 min after intravenous potassium replacement. Performing Organization Address [facility] Phone Number [address] [address] [place] Calcium, Ionized (09/12/2018 11:37 AM CDT) Calcium, Ion 1.09 (L) 1.12 - 1.27 mmol/L [facility] pH, Blood 7.46 [facility] Specimen Blood Narrative Performed At Check serum Ionized Calcium level after 4 [facility] hours after IV Calcium replacement. Performing Organization Address City/[facility] Phone Number [address] [address] [place] EEG monitoring with video recording each 24 hours (09/12/2018 8:15 AM CDT) Narrative Performed At DATE OF REPORT: 09/12/2018 [facility] ACC: [id number] EE Start time: 09/11 at 0920 AM Stop time: 09/12 at 11:11 AM ICD-10: R56.9 CPT Code: 81011 HISTORY: 28 year old male p/w increased [...] Fellow Davis Cintron MD, PhD Attending Neurophysiologist [facility] Procedure Note Interface, External Ris In - 09/12/2018 2:34 PM CDT DATE OF REPORT: 09/12/2018 ACC: [id number] EE Start time: 09/11 at 0920 AM Stop time: 09/12 at 11:11 AM ICD-10: R56.9 CPT Code: 03910 HISTORY: 28 year old male p/w increased [...] Fellow Davis Cintron MD, PhD Attending Neurophysiologist [facility] Performing Organization Address City/State/Zipcode Phone Number [facility] POC-Glucose meter (09/11/2018 11:45 PM CDT)Only the most recent of4 resultswithin the time period is included. POC-Glucose Meter 94Comment: TESTED AT 70 - 110 mg/dL [address] [address] Specimen Blood Performing Organization Address [facility] Phone Number [address] [address] CENTER EEG monitoring with video recording each 24 hours (09/11/2018 6:59 AM CDT) Narrative Performed At DATE OF REPORT: 09/11/2018 [facility] ACC: [id number] EE Start time: 09/10 at 15:05 Stop time: 09/11 at 09:20 AM ICD-10: R56.9 CPT Code: 89929 HISTORY: 28 yo male with h/o seizures [...] Joao Blum M.D., FLOR Professor of Neurology [facility] Director, [facility] Epilepsy [facility] Head, [facility] Procedure Note Interface, External Ris In - 09/11/2018 9:23 AM CDT DATE OF REPORT: 09/11/2018 ACC: [id number] EE Start time: 09/10 at 15:05 Stop time: 09/11 at 09:20 AM ICD-10: R56.9 CPT Code: 43499 HISTORY: 28 yo male with h/o seizures [...] Joao Blum M.D., FLOR Professor of Neurology [facility] [employer] [facility] Director, [facility] Epilepsy [place] Head, [facility] Neurophysiology Lab Performing Organization Address City/State/Zipcode Phone Number [facility] Blood gas, arterial (09/11/2018 3:20 AM CDT)Only the most recent of2 resultswithin the time period is included. pH, Arterial 7.38 7.35 - 7.45 [facility] pCO2, Arterial 42 35 - 45 mmHg [facility] pO2, Arterial 120 (H) 80 - 90 mmHg [facility] O2 Sat, Arterial 98.3 (H) 96.0 - 97.0 % [facility] HCO3, Arterial 24 21 - 29 mmol/L [facility] Base Excess, Arterial -0.8 -2.0 - 3.0 mmol/L [facility] Patient Temperature 37.0 C [facility] FIO2 40.0 % [facility] Specimen Blood, Arterial Performing Organization Address City/[facility] Phone Number [address] [address] CENTER Troponin I (09/10/2018 4:39 PM CDT)Only the most recent of2 resultswithin the time period is included. Troponin I <0.01 0.00 - 0.03 ng/mL [facility] Specimen Blood Narrative Performed At Troponin I (TnI) levels must be interpreted [facility] in the context of the presenting [...] disease, and persistent tachyarrhythmia. Performing Organization Address City/State/Zipcode Phone Number [facility] [address] [place] [address] [phone] CENTER EEG AWAKE AND DROWSY (09/10/2018 3:06 PM CDT) Narrative Performed At DATE OF REPORT: 09/10/2018 GE RIS ACC: [id number] EE Start time: 14:47 Stop time: 15:04 ICD-10: R56.9 CPT Code: 65165 HISTORY: 28 yo male with h/o seizures [...] Joao Blum M.D., FLOR Professor of Neurology [facility] [employer] Director, [facility] Epilepsy [place] Procedure Note Interface, External Ris In - 09/10/2018 3:50 PM CDT DATE OF REPORT: 09/10/2018 ACC: [id number] EE Start time: 14:47 Stop time: 15:04 ICD-10: R56.9 CPT Code: 13183 HISTORY: 28 yo male with h/o seizures [...] John MD Neurophysiology Fellow Joao Blum M.D., [facility] Professor of Neurology [facility] Director, [facility] Epilepsy [place] Performing Organization Address City/State/Zipcode Phone Number [employer] XR abdomen / KUB 1 view (09/10/2018 11:58 AM CDT) Narrative Performed At FINAL REPORT [employer] AP abdomen, three images HISTORY: Feeding tube COMPARISON: 11/01/2015 IMPRESSION: Feeding tube present with tip in abdomen. Bowel gas pattern appears grossly nonobstructive. Signed: Edgardo Guzman MD Report Verified Date/Time:09/10/2018 12:12:56 Reading Location: [address] Consult Reading Room Procedure Note Interface, External Ris In - 09/10/2018 12:15 PM CDT FINAL REPORT AP abdomen, three images HISTORY: Feeding tube COMPARISON: 11/01/2015 IMPRESSION: Feeding tube present with tip in abdomen. Bowel gas pattern appears grossly nonobstructive. Signed: Edgardo Guzman MD Report Verified Date/Time: 09/10/2018 12:12:56 Reading Location: [facility] B1 C013X Ortho Consult Reading Room Performing Organization Address City/[facility]/Zipcode Phone Number JACY SHORE May use line [...] pending Procedure performed emergently. Dr. Chandler Wolfe, [employer] Supervisor of Neurology Neurocritical Care and Vascular Neurology [facility]. Drug screen, urine, comprehensive (09/10/2018 10:20 AM CDT)Only the most recent of2 resultswithin the time period is included. Specimen Urine Narrative Performed At Blood culture #1 (09/10/2018 9:22 AM CDT)Only the most recent of2 resultswithin the time period is included. Result No growth in 5 days [facility] Specimen Blood - Central Venous Line Performing Organization Address City/[facility] Phone Number [facility] [phone] [place] Sputum Culture + Gram Stain (09/10/2018 9:21 AM CDT) Result 4+ Normal respiratory beatrice [facility] Gram Stain Result 1+ gram positive rods [facility] Gram Stain Result 1+ gram negative cocci [facility] Gram Stain Result 2+ gram positive cocci in [facility] chains MEDICAL [place] Gram Stain Result 1+ gram positive cocci in [facility] Specimen Sputum - Endotracheal Performing Organization Address [facility] Phone Number [address] [address] [phone] [place] Urine culture (09/10/2018 8:44 AM CDT) Result No growth [facility] Specimen Urine - Urine, Muñoz Performing Organization Address [facility] Phone Number [address] [address] [phone] [place] aPTT (09/10/2018 8:38 AM CDT) PTT 27.5 22.5 - 36.0 seconds [facility] Specimen Blood Performing Organization Address [facility] Number [address] [address] [place] Prothrombin time/INR (09/10/2018 8:38 AM CDT) Protime 14.6 11.7 - 14.7 seconds [facility] INR 1.1 <=5.9 [facility] Specimen Blood Narrative Performed At RECOMMENDED COUMADIN/WARFARIN INR THERAPY [facility] RANGES STANDARD DOSE: 2.0 - 3.0 Includes: PROPHYLAXIS for venous thrombosis, systemic embolization; TREATMENT for venous thrombosis and/or pulmonary embolus. HIGH RISK: Target INR is 2.5-3.5 for patients with mechanical heart valves. Performing Organization Address [facility]/Zipcode Phone Number [address] [address] [phone] CENTER Platelet count (09/10/2018 8:38 AM CDT) Platelets 184 150 - 450 K/CU MM [facility] Specimen Blood Performing Organization Address [facility] Phone Number [address] [address] [phone] [place] Phenytoin level, total (09/10/2018 8:38 AM CDT) Phenytoin 10.8 10.0 - 20.0 ug/mL [facility] Specimen Blood Performing Organization Address [facility] Phone Number [address] [address] CENTER Carbamazepine level (09/10/2018 8:38 AM CDT)Only the most recent of2 resultswithin the time period is included. Carbamazepine Lvl 2.2 (L) 4.0 - 12.0 ug/mL [facility] Specimen Blood Performing Organization Address [facility] Phone Number [address] [address] CENTER Creatine Kinase (CK) (08/13/2018 6:02 AM CDT)Only the most recent of4 resultswithin the time period is included. Total CK 1,709 (H) 29 - 200 U/L [facility] Specimen Blood - Arm, Right Performing Organization Address [facility] Phone Number [address] [address] [place] EEG AWAKE AND DROWSY (08/10/2018 3:38 PM CDT) Narrative Performed At Neurophysiology Electroencephalogram Report GE [facility]IS DATE OF REPORT: 08/10/18 Date(s) of Study: 08/10/2018 ACC: [id number] Start time: 1517 hrs Stop time: 1537 hrs ICD-10: R56.9 Unspecified Convulsions CPT Code: 10088 EEG: awake and drowsy <40 min HISTORY: [...] Shamir Najera MD, MS Clinical Neurophysiology/Epilepsy Attending [facility] Neurophysiology Service Procedure Note Interface, External Ris In - 08/10/2018 4:50 PM CDT Neurophysiology Electroencephalogram Report DATE OF REPORT: 08/10/18 Date(s) of Study: 08/10/2018 ACC: [id number] Start time: 1517 hrs Stop time: 1537 hrs ICD-10: R56.9 Unspecified Convulsions CPT Code: 39716 EEG: awake and drowsy <40 min HISTORY: [...] Shamir Najera MD, MS Clinical Neurophysiology/Epilepsy Attending [facility] Neurophysiology Service Performing Organization Address [facility] Phone Number [employer] ECG 12 lead (08/10/2018 4:35 AM CDT) Narrative Performed At Ventricular Rate 69 BPM GE MUSE Atrial Rate 69 BPM P-R Interval 132 ms QRS Duration 88 ms Q-T Interval 390 ms QTC Calculation(Bazett) 417 ms P K[place]lotus 14 degrees R Kahlotus 45 degrees T [place] 16 degrees Normal sinus rhythm Normal ECG No previous ECGs available Confirmed by Javier LOPEZ BASANT ([id number]) on 08/10/2018 10:49:51 AM Procedure Note Interface, External Ris In - 08/10/2018 10:49 AM CDT Ventricular Rate 69 BPM Atrial Rate 69 BPM P-R Interval 132 ms QRS Duration 88 ms Q-T Interval 390 ms QTC Calculation(Bazett) 417 ms P [place]us 14 degrees R K[place]lotus 45 degrees T [place] 16 degrees Normal sinus rhythm Normal ECG No previous ECGs available Confirmed by Javier LOPEZ BASANT ([id number]) on 08/10/2018 10:49:51 AM Performing Organization Address [facility] Phone Number [employer] Urinalysis w/ Microscopic (08/10/2018 4:29 AM CDT) Color, UA Yellow [facility] Clarity, UA Clear [facility] Specific [place], UA 1.011 1.001 - 1.035 [facility] pH, UA 7.0 5.0 - 8.0 [facility] Protein, UA Negative Negative [facility] Glucose, UA Negative Negative [facility] Ketones, UA Negative Negative [facility] Bilirubin, UA Negative Negative [facility] Blood, UA Negative Negative [facility] Nitrite, UA Negative Negative [facility] Leukocytes, UA Negative Negative [facility] Urobilinogen, UA 2.0 (H) 0.2 - 1.0 mg/dL [facility] RBC, UA <1 /HPF [facility] WBC, UA 0 /HPF [facility] Specimen Source [facility] Specimen Urine Performing Organization Address City/[facility]/Zipcode Phone Number [facility] [address] [place] [address] [phone] CENTER C-Reactive Protein (08/10/2018 1:55 AM CDT) CRP 0.45 0.00 - 0.50 mg/dL [facility] Specimen Blood Performing Organization Address City/[facility]/Zipcode Phone Number [address] [address] [place] Lactic acid, venous, whole blood (08/10/2018 1:55 AM CDT) Lactate, Venous 1.0Comment: Specimen 0.5 - 2.2 mmol/L [facility] slightly hemolyzed [facility] Specimen Blood Narrative Performed At [facility] Effective 03/18/2016: Units/Reference Range Change New: 0.5-2.2 mmol/LPrevious: 5-20 mg/dL Performing Organization Address City/[facility] Phone Number [facility] [address] [place] [address] CENTER Lamotrigine level (08/10/2018 1:55 AM CDT) Lamotrigine 5.6 4.0 - 18.0 mcg/mL [facility] Comment: INCORPORATED This test was developed and its analytical performance characteristics have been determined by [employer] [facility]. It has not been cleared or approved by the US Food and Drug Administration. This assay has been validated pursuant to the CLIA regulations and is used for clinical purposes. Specimen Blood Narrative Performed At Performing Lab [email or web address] *[facility], [address] [place] [phone] Jhonyn Stanley MD, PhD Performing Organization Address [facility] Phone Number [place] [phone] [place] [address] Hepatic function panel (08/10/2018 1:55 AM CDT) Protein, Total 6.5 6.0 - 8.3 gm/dL [facility] Albumin 3.9 3.5 - 5.0 g/dL [facility] Total Bilirubin 0.8 0.2 - 1.2 mg/dL [facility] Bilirubin, Direct 0.3 0.1 - 0.5 mg/dL [facility] Alkaline Phosphatase 85 40 - 150 U/L [facility] AST 43 (H) 5 - 34 U/L [facility] ALT 33 6 - 55 U/L [facility] Specimen Blood Performing Organization Address City/[facility]/Zipcode Phone Number [facility] [address] [place] [address] CENTER POCT-HEMATOCRIT (08/10/2018 1:41 AM CDT) POC-Hematocrit 35 (L)Comment: TESTED AT 40 - 50 % [address] [address] Specimen Blood Performing Organization Address City/[facility] Phone Number [address] [address] CENTER POCT-HEMOGLOBIN (08/10/2018 1:41 AM CDT) POC-Hemoglobin 11.9 (L)Comment: TESTED AT 13.0 - 16.8 g/dL [address] [place] [address]SEIMRY AT [address] [address] Specimen Blood Performing Organization Address [facility] Phone Number [address] [address] CENTER POCT-GLUCOSE (08/10/2018 1:41 AM CDT) POC-Glucose 105Comment: TESTED AT [facility] 70 - 110 mg/dL [address] [address] Specimen Blood Performing Organization Address City/[facility] Phone Number [address] [address] [place] POC-Sodium (08/10/2018 1:41 AM CDT) POC-Sodium 140Comment: TESTED AT [facility] 135 - 148 meq/L [address] [address] Specimen Blood Performing Organization Address City/[facility]/Zipcode Phone Number [address] [address] CENTER POC-Potassium (08/10/2018 1:41 AM CDT) POC-Potassium 3.4 (L)Comment: TESTED AT 3.6 - 5.5 meq/L [address] [address] Specimen Blood Performing Organization Address City/[facility]/Zipcode Phone Number [address] [place] [address] [place] POC-Calcium ionized (08/10/2018 1:41 AM CDT) POC-Calcium Ionized 1.15Comment: TESTED AT 1.12 - 1.27 mmol/L [address] [address] Specimen Blood Performing Organization Address [facility] Phone Number [address] [address] [place] POC-Blood gases, arterial (08/10/2018 1:41 AM CDT) Temp. Celsius-POC 37.0 [facility] FIO2-POC Comment: TESTED AT [address] [address] pH, Arterial-POC 7.396 7.350 - 7.450 [facility] PCO2, Arterial-POC 35.3 35.0 - 45.0 mm Hg [facility] PO2, Arterial-POC 104.0 (H) 80.0 - 90.0 mm Hg [facility] SO2, Arterial-POC 98.0 (H) 96.0 - 97.0 % [facility] HCO3, Arterilal-POC 21.7 21.0 - 29.0 meq/L [facility] BE, Arterial-POC -3.0 (L) -2.0 - 3.0 meq/L [facility] Specimen Blood Performing Organization Address City/[facility] Phone Number [address] [address] [phone] [place] POC-Lactic Acid, Arterial (08/10/2018 1:35 AM CDT) POC-Lactic Acid, 0.9Comment: TESTED AT 0.4 - 1.3 mmol/L [facility] Arterial [address] [address] Specimen Blood Performing Organization Address City/State/Zipcode Phone Number [facility] MED[facility] [address] [place] [address] CENTER after 12/24/2017 Insurance Payer Benefit Plan / Subscriber ID Type Phone Address Group BLUE CROSS/BLUE BCBS PPO POS EPO xxxxxxxxxxxx PPO [phone] [address] [place] [address] Advance Directives For more information, please contact:[facility] [place], [place] [phone] Code Status Date Activated Date Inactivated Comments Full Code 09/10/2018 7:22 AM This code status was determined by: Patient Full Code 08/10/2018 1:35 AM 08/13/2018 8:26 PM This code status was determined by: Patient
[2018-12-26] MEDS ORDERED: NA CHLORIDE 0.9% 1,000 ML ONE (00:20)
[2018-12-26 03:30] VITALS: O2SAT 100
[2018-12-26 03:32] VITALS: BP 96/72
--- NOTE | 2018-12-26 07:21 | EKG ---
Test Date: 2018-12-25 Test Time: 22:51:06 Draw Press Operator: KIP MEASUREMENT RESULTS: Intervals: Rate: 85 GA: 156 QRSD: 76 QT: 334 QTc: 397 [place]: P: 20 GA: 156 QRS: -5 T: 11 INTERPRETIVE STATEMENTS: Normal sinus rhythm Minimal voltage criteria for LVH, may be normal variant Cannot rule out Anterior infarct, age undetermined Abnormal ECG Compared to ECG 09/10/2018 01:28:59 Left ventricular hypertrophy now present Myocardial infarct finding now present Sinus tachycardia no longer present Electronically Signed On 12-26-18 07:20:26 HAND TOUCH UP PAINTER by Bryan Linder
== END 2018-12-26 02:54 | disposition short-term general hospital (02) ==
LOC: ER 22:45
DX: G40.803 Other epilepsy, intractable, with status epilepticus (principal); F32.9 Major depressive disorder, single episode, unspecified; Z88.8 Allergy status to other drugs, medicaments and biological substances
CPT/HCPCS: 36415; 80048; 80076; 80320; 80329; 85025; 85610; 85730; 93005; 96361; 96365; 96375; 99285; J3360; J7030; Q2009

== ENCOUNTER 2020-02-07 07:02 | Inpatient (IN) | payer BC, OTHER, SELFPAY ==
[2020-02-07] MEDS ORDERED: LORazepam 2 MG/ML VIAL ONE ×4 (07:05→15:48)
--- OUTSIDE RECORDS SUMMARY | 2020-02-07 07:05 | XMS REPORT ---
:1990 [facility] [address] [place] [address] Care Team Providers Name Role Phone CARSON [...] Value Reference Range Comments CULTURE (BEAKER) (test yzzr=0214) No growth in 5 days BLOOD [id number] 18:00:00 Test Item Value Reference Range Comments CULTURE (BEAKER) (test rbyz=1323) No growth in 5 days SPUTUM CULTURE + GRAM [id number] 14:21:00 Test Item Value Reference Range Comments CULTURE (BEAKER) (test 4+ Normal respiratory beatrice lxyh=3266) present GRAM STAIN RESULT (BEAKER) 1+ gram positive rods (test dedr=6863) GRAM STAIN RESULT (BEAKER) 1+ gram negative cocci (test ruud=07441) GRAM STAIN RESULT (BEAKER) 2+ gram positive cocci in chains (test vgww=05770) GRAM STAIN RESULT (BEAKER) 1+ gram positive cocci in (test nrum=256253) clusters RAD, CHEST, 1 VIEW, NON [id number] 07:27:00Reason for exam:->post intubationShould this be performed [...] Verified Date/Time: 09/13/2018 07:27 :51 Reading Location: [facility] Radiology Reading Room [id number] 04:44:00 Test Item Value Reference Range Comments PHOSPHORUS (BEAKER) (test ysfm=079) 2.9 mg/dL 2.3-4.7 Check Serum Phosphorus level 4 hours after IV phosphorus replacement or 8 hours after PO replacementcompleted.[id number] 04:44:00 Test Item Value Reference Range Comments MAGNESIUM (BEAKER) (test ucql=537) 2.2 mg/dL 1.6-2.6 Check Serum Phosphorus level 4 hours after IV phosphorus replacement or 8 hours after PO replacementcompleted.BASIC METABOLIC [id number] 04:44:00 Test Item Value Reference Range Comments SODIUM (BEAKER) (test 142 meq/L 136-145 axee=202) POTASSIUM (BEAKER) (test 3.6 meq/L 3.5-5.1 vueb=873) CHLORIDE (BEAKER) (test 114 meq/L 98-107 oeka=830) CO2 (BEAKER) (test 22 meq/L 22-29 yplk=503) BLOOD UREA NITROGEN 8 mg/dL 7-21 (BEAKER) (test jgai=048) CREATININE (BEAKER) (test 0.68 mg/dL 0.57-1.25 pkqb=219) GLUCOSE RANDOM (BEAKER) 109 mg/dL 70-105 (test ikcy=777) CALCIUM (BEAKER) (test 8.4 mg/dL 8.4-10.2 vfvr=803) EGFR (BEAKER) (test 137 mL/min/1.73 sq m ESTIMATED GFR IS NOT nlac=0740) ACCURATE CREATININE CLEARANCE IN PREDICTING GLOMERULAR FILTRATION RATE. ESTIMATED GFR IS NOT APPLICABLE FOR DIALYSIS PATIENTS. Check Serum Phosphorus level 4 hours after IV phosphorus replacement or 8 hours after PO replacementcompleted.CBC W/PLT COUNT & AUTO [id number] 04:19:00 Test Item Value Reference Range Comments WHITE BLOOD CELL COUNT (BEAKER) (test qrpl=792) 6.1 K/ L 3.5-10.5 RED BLOOD CELL COUNT (BEAKER) (test vnez=227) 3.85 M/ L 4.63-6.08 HEMOGLOBIN (BEAKER) (test cyky=209) 11.4 GM/DL 13.7-17.5 HEMATOCRIT (BEAKER) (test msxj=162) 35.1 % 40.1-51.0 MEAN CORPUSCULAR VOLUME (BEAKER) (test ctzg=850) 91.2 fL 79.0-92.2 MEAN CORPUSCULAR HEMOGLOBIN (BEAKER) (test 29.6 pg 25.7-32.2 tvtr=153) MEAN CORPUSCULAR HEMOGLOBIN CONC (BEAKER) (test 32.5 GM/DL 32.3-36.5 vlwb=686) RED CELL DISTRIBUTION WIDTH (BEAKER) (test 13.7 % 11.6-14.4 inzj=103) PLATELET COUNT (BEAKER) (test jzgw=959) 162 K/CU MM 150-450 MEAN PLATELET VOLUME (BEAKER) (test bcxp=575) 10.4 fL 9.4-12.4 NUCLEATED RED BLOOD CELLS (BEAKER) (test 0 /100 WBC 0-0 elac=405) NEUTROPHILS RELATIVE PERCENT (BEAKER) (test 58 % fyvo=011) LYMPHOCYTES RELATIVE PERCENT (BEAKER) (test 32 % eymn=085) MONOCYTES RELATIVE PERCENT (BEAKER) (test 9 % xsnj=951) EOSINOPHILS RELATIVE PERCENT (BEAKER) (test 1 % ndti=827) BASOPHILS RELATIVE PERCENT (BEAKER) (test 0 % umbj=219) NEUTROPHILS ABSOLUTE COUNT (BEAKER) (test 3.54 K/ L 1.78-5.38 axil=044) LYMPHOCYTES ABSOLUTE COUNT (BEAKER) (test 1.93 K/ L 1.32-3.57 iqpc=920) MONOCYTES ABSOLUTE COUNT (BEAKER) (test 0.52 K/ L 0.30-0.82 tjpy=051) EOSINOPHILS ABSOLUTE COUNT (BEAKER) (test 0.07 K/ L 0.04-0.54 ntas=359) BASOPHILS ABSOLUTE COUNT (BEAKER) (test 0.02 K/ L 0.01-0.08 ouwv=829) IMMATURE GRANULOCYTES-RELATIVE PERCENT (BEAKER) 0 % 0-1 (test pnbn=5158) [id number] 18:41:00 Test Item Value Reference Range Comments POTASSIUM (MAXIMINO) (test wpqh=266) 3.9 meq/L 3.5-5.1 Check Serum Potassium level 2 hours after oral potassium replacement completed or 30 min after intravenous potassium replacement.[id number] 18:41:00 Test Item Value Reference Range Comments MAGNESIUM (MAXIMINO) (test khpz=845) 2.9 mg/dL 1.6-2.6 Check Serum Potassium level 2 hours after oral potassium replacement completed or 30 min after intravenous potassium replacement.EEG MONITORING WITH VIDEO RECORDING EACH 24 [id number] 14:34:00billing for 09/12 AMDATE OF REPORT: ACC: [id number] EE Start time: 09/11 at 0920 AM Stop time: 09/12 at 11:11 AM ICD-10: R56.9 CPT Code: 52601 HISTORY: 28 year old male p/w increased [...] Davis Cintron MD, PhD Attending Neurophysiologist [facility] [id number] 12:15:00 Test Item Value Reference Range Comments MAGNESIUM (BEAKER) (test wgsz=317) 1.9 mg/dL 1.6-2.6 Check Serum Phosphorus level 4 hours after IV phosphorus replacement or 8 hours after PO replacementcompleted.Check Serum Potassium level 2 hours after oral potassium replacement completed or 30 min after intravenous potassium replacement.[id number] 12:15:00 Test Item Value Reference Range Comments PHOSPHORUS (BEAKER) (test eznk=644) 2.0 mg/dL 2.3-4.7 Check Serum Phosphorus level 4 hours after IV phosphorus replacement or 8 hours after PO replacementcompleted.Check Serum Potassium level 2 hours after oral potassium replacement completed or 30 min after intravenous potassium replacement.[id number] 12:14:00 Test Item Value Reference Range Comments POTASSIUM (BEAKER) (test jplz=691) 3.6 meq/L 3.5-5.1 Check Serum Phosphorus level 4 hours after IV phosphorus replacement or 8 hours after PO replacementcompleted.Check Serum Potassium level 2 hours after oral potassium replacement completed or 30 min after intravenous potassium replacement.CALCIUM, [id number] 11:49:00 Test Item Value Reference Range Comments CALCIUM IONIZED (BEAKER) (test wpob=401) 1.09 mmol/L 1.12-1.27 PH, BLOOD (BEAKER) (test dpqt=3519) 7.46 Check serum Ionized Calcium level after 4 hours after IV Calcium replacement.URINE [id number] 08:18:00 Test Item Value Reference Range Comments CULTURE (BEAKER) (test glhv=9801) No growth [id number] 03:59:00 Test Item Value Reference Range Comments PHOSPHORUS (BEAKER) (test fhyb=667) 2.5 mg/dL 2.3-4.7 Check Serum Phosphorus level 4 hours after IV phosphorus replacement or 8 hours after PO replacementcompleted.[id number] 03:59:00 Test Item Value Reference Range Comments MAGNESIUM (BEAKER) (test dini=936) 2.1 mg/dL 1.6-2.6 Check Serum Phosphorus level 4 hours after IV phosphorus replacement or 8 hours after PO replacementcompleted.BASIC METABOLIC [id number] 03:59:00 Test Item Value Reference Range Comments SODIUM (BEAKER) (test 143 meq/L 136-145 rhqh=910) POTASSIUM (BEAKER) (test 3.3 meq/L 3.5-5.1 klja=430) CHLORIDE (BEAKER) (test 112 meq/L 98-107 wtxt=243) CO2 (BEAKER) (test 25 meq/L 22-29 nnim=834) BLOOD UREA NITROGEN 5 mg/dL 7-21 (BEAKER) (test ecey=599) CREATININE (BEAKER) (test 0.65 mg/dL 0.57-1.25 vzfh=708) GLUCOSE RANDOM (BEAKER) 92 mg/dL 70-105 (test ikfb=435) CALCIUM (BEAKER) (test 8.4 mg/dL 8.4-10.2 jrku=506) EGFR (BEAKER) (test 144 mL/min/1.73 sq m ESTIMATED GFR IS NOT ossa=9141) ACCURATE CREATININE CLEARANCE IN PREDICTING GLOMERULAR FILTRATION RATE. ESTIMATED GFR IS NOT APPLICABLE FOR DIALYSIS PATIENTS. Check Serum Phosphorus level 4 hours after IV phosphorus replacement or 8 hours after PO replacementcompleted.CBC W/PLT COUNT & AUTO [id number] 03:41:00 Test Item Value Reference Range Comments WHITE BLOOD CELL COUNT (BEAKER) (test nxtl=178) 8.0 K/ L 3.5-10.5 RED BLOOD CELL COUNT (BEAKER) (test vvkb=969) 3.69 M/ L 4.63-6.08 HEMOGLOBIN (BEAKER) (test ltvr=326) 11.0 GM/DL 13.7-17.5 HEMATOCRIT (BEAKER) (test ygmb=906) 33.5 % 40.1-51.0 MEAN CORPUSCULAR VOLUME (BEAKER) (test kjds=428) 90.8 fL 79.0-92.2 MEAN CORPUSCULAR HEMOGLOBIN (BEAKER) (test 29.8 pg 25.7-32.2 ydmm=971) MEAN CORPUSCULAR HEMOGLOBIN CONC (BEAKER) (test 32.8 GM/DL 32.3-36.5 zcjs=940) RED CELL DISTRIBUTION WIDTH (BEAKER) (test 13.5 % 11.6-14.4 vlho=420) PLATELET COUNT (BEAKER) (test lwxu=426) 153 K/CU MM 150-450 MEAN PLATELET VOLUME (BEAKER) (test atir=565) 10.5 fL 9.4-12.4 NUCLEATED RED BLOOD CELLS (BEAKER) (test 0 /100 WBC 0-0 bkgg=780) NEUTROPHILS RELATIVE PERCENT (BEAKER) (test 62 % bnzg=989) LYMPHOCYTES RELATIVE PERCENT (BEAKER) (test 29 % rofk=375) MONOCYTES RELATIVE PERCENT (BEAKER) (test 8 % ooiv=489) EOSINOPHILS RELATIVE PERCENT (BEAKER) (test 1 % ycom=075) BASOPHILS RELATIVE PERCENT (BEAKER) (test 0 % yhoo=195) NEUTROPHILS ABSOLUTE COUNT (BEAKER) (test 4.92 K/ L 1.78-5.38 kies=584) LYMPHOCYTES ABSOLUTE COUNT (BEAKER) (test 2.31 K/ L 1.32-3.57 vzsb=099) MONOCYTES ABSOLUTE COUNT (BEAKER) (test 0.65 K/ L 0.30-0.82 upva=501) EOSINOPHILS ABSOLUTE COUNT (BEAKER) (test 0.06 K/ L 0.04-0.54 fysb=978) BASOPHILS ABSOLUTE COUNT (BEAKER) (test 0.02 K/ L 0.01-0.08 cdgw=905) IMMATURE GRANULOCYTES-RELATIVE PERCENT (BEAKER) 0 % 0-1 (test kvhx=2814) POCT-GLUCOSE [id number] 23:55:00 Test Item Value Reference Range Comments POC-GLUCOSE METER (BEAKER) 94 mg/dL 70-110 TESTED AT [facility] [address] (test xlwr=7101) [facility] [address] [id number] 18:08:00 Test Item Value Reference Range Comments POTASSIUM (BEAKER) (test ntkr=205) 3.4 meq/L 3.5-5.1 Check Serum Potassium level 2 hours after oral potassium replacement completed or 30 min after intravenous potassium replacement.EEG MONITORING WITH VIDEO RECORDING EACH 24 [id number] 09:23:00DATE OF REPORT: 09/11/2018ACC: [id number]: Start time: 09/10 at 15:05Stop time: 09/11 at 09:20 AMICD-10 : R56.9CPT Code: 44608 HISTORY: 28 yo male with h/o seizures [...] MDNeurophysiology Fellow Joao Blum M.D., FACNSProfessor of NeurologyJacobs Medical CenterDiplains regional medical centerorA[facility] Ep[facility] Neurophysiology Lab Electronically signed by:JOAO BLUM on 2017 09:23 AMRAD, CHEST, 1 VIEW, NON [id number] 07:32:00Reason for exam:-&gt ;post intubationShould this be [...] is magnified by technique. Signed: Kody Vuong [facility] Verified Date/Time: 09/11/2018 07:32: 46 Reading Location: [facility] B1 C013V Neuro Reading Room POCT-GLUCOSE [id number] 06: 30:00 Test Item Value Reference Range Comments POC-GLUCOSE METER (BEAKER) 111 mg/dL 70-110 TESTED AT [facility] [address] [facility] (test wevl=7924) [facility] [address] BASIC METABOLIC [id number] 06:06:00 Test Item Value Reference Range Comments SODIUM (BEAKER) (test 138 meq/L 136-145 mius=950) POTASSIUM (BEAKER) (test 3.4 meq/L 3.5-5.1 wbfk=806) CHLORIDE (BEAKER) (test 110 meq/L 98-107 egnc=358) CO2 (BEAKER) (test 20 meq/L 22-29 cktr=465) BLOOD UREA NITROGEN 8 mg/dL 7-21 (BEAKER) (test sdos=878) CREATININE (BEAKER) (test 0.70 mg/dL 0.57-1.25 uprs=991) GLUCOSE RANDOM (BEAKER) 107 mg/dL 70-105 (test btxr=751) CALCIUM (BEAKER) (test 8.4 mg/dL 8.4-10.2 bntm=381) EGFR (BEAKER) (test 132 mL/min/1.73 sq m ESTIMATED GFR IS NOT iqrt=7300) ACCURATE CREATININE CLEARANCE IN PREDICTING GLOMERULAR FILTRATION RATE. ESTIMATED GFR IS NOT APPLICABLE FOR DIALYSIS PATIENTS. CBC W/PLT COUNT & AUTO [id number] 03:47:00 Test Item Value Reference Range Comments WHITE BLOOD CELL COUNT (BEAKER) (test fijy=542) 7.9 K/ L 3.5-10.5 RED BLOOD CELL COUNT (BEAKER) (test fvgu=402) 3.85 M/ L 4.63-6.08 HEMOGLOBIN (BEAKER) (test jjlo=413) 11.4 GM/DL 13.7-17.5 HEMATOCRIT (BEAKER) (test oict=323) 34.7 % 40.1-51.0 MEAN CORPUSCULAR VOLUME (BEAKER) (test dmqo=956) 90.1 fL 79.0-92.2 MEAN CORPUSCULAR HEMOGLOBIN (BEAKER) (test 29.6 pg 25.7-32.2 unog=522) MEAN CORPUSCULAR HEMOGLOBIN CONC (BEAKER) (test 32.9 GM/DL 32.3-36.5 duib=696) RED CELL DISTRIBUTION WIDTH (BEAKER) (test 14.2 % 11.6-14.4 trrd=747) PLATELET COUNT (BEAKER) (test sbfq=020) 163 K/CU MM 150-450 MEAN PLATELET VOLUME (BEAKER) (test qrfo=457) 10.3 fL 9.4-12.4 NUCLEATED RED BLOOD CELLS (BEAKER) (test 0 /100 WBC 0-0 lmsv=627) NEUTROPHILS RELATIVE PERCENT (BEAKER) (test 68 % rklo=660) LYMPHOCYTES RELATIVE PERCENT (BEAKER) (test 23 % ctjy=264) MONOCYTES RELATIVE PERCENT (BEAKER) (test 8 % jnfc=860) EOSINOPHILS RELATIVE PERCENT (BEAKER) (test 0 % rmys=353) BASOPHILS RELATIVE PERCENT (BEAKER) (test 0 % lroc=337) NEUTROPHILS ABSOLUTE COUNT (BEAKER) (test 5.41 K/ L 1.78-5.38 qftw=874) LYMPHOCYTES ABSOLUTE COUNT (BEAKER) (test 1.79 K/ L 1.32-3.57 fhdt=012) MONOCYTES ABSOLUTE COUNT (BEAKER) (test 0.67 K/ L 0.30-0.82 xsav=426) EOSINOPHILS ABSOLUTE COUNT (BEAKER) (test 0.02 K/ L 0.04-0.54 wwli=889) BASOPHILS ABSOLUTE COUNT (BEAKER) (test 0.03 K/ L 0.01-0.08 tuzy=616) IMMATURE GRANULOCYTES-RELATIVE PERCENT (BEAKER) 0 % 0-1 (test edry=2285) BLOOD GAS, [id number] 03:32:00 Test Item Value Reference Range Comments PH ARTERIAL (BEAKER) (test oobz=447) 7.38 7.35-7.45 PCO2 ARTERIAL (BEAKER) (test kxkk=521) 42 mmHg 35-45 PO2 ARTERIAL (BEAKER) (test xfma=631) 120 mmHg 80-90 O2 SATURATION ARTERIAL (BEAKER) (test mwob=520) 98.3 % 96.0-97.0 HCO3 ARTERIAL (BEAKER) (test vhav=956) 24 mmol/L 21-29 BASE EXCESS ARTERIAL (BEAKER) (test djdk=627) -0.8 mmol/L -2.0-3.0 PATIENT TEMPERATURE (BEAKER) (test lsso=8972) 37.0 C FIO2 (BEAKER) (test xxen=7410) 40.0 % POCT-GLUCOSE [id number] 01:01:00 Test Item Value Reference Range Comments POC-GLUCOSE METER (BEAKER) 91 mg/dL 70-110 TESTED AT [facility] [address] (test bpza=5830) [facility] [address] TROPONIN [id number] 17:18:00 Test Item Value Reference Range Comments TROPONIN I (BEAKER) (test szak=627) < ng/mL 0.00-0.03 Troponin I (TnI) levels [...] neurological disease, and persistent tachyarrhythmia.EEG AWAKE AND [id number] 15:50: 00Reason for exam:->Status epilepticus, c EEG for evaluation of subclinical seizures Should this beperformed at the bedside?->YesDATE OF REPORT: 2017ACC: [id number]: [id number] time: 14:47Stop time: 15:04ICD-10: R56.9CPTCode: 87533 HISTORY: 28 yo male with h/o seizures [...] MDNeurophysiology Fellow Joao Blum M.D., FACNSProfessor of NeurologyJacobs Medical CenterDirector, [facility] Epilepsy [place] BLOOD GAS, [id number] 12:32:00 Test Item Value Reference Range Comments PH ARTERIAL (BEAKER) (test dzmc=643) 7.37 7.35-7.45 PCO2 ARTERIAL (BEAKER) (test xgpw=140) 38 mmHg 35-45 PO2 ARTERIAL (BEAKER) (test ozjz=003) 208 mmHg 80-90 O2 SATURATION ARTERIAL (BEAKER) (test pspw=687) 99.4 % 96.0-97.0 HCO3 ARTERIAL (BEAKER) (test foeu=216) 21 mmol/L 21-29 BASE EXCESS ARTERIAL (BEAKER) (test vxvc=932) -3.4 mmol/L -2.0-3.0 PATIENT TEMPERATURE (BEAKER) (test rqxv=4019) 37.1 C FIO2 (BEAKER) (test chxf=4987) 40.0 % RAD, ABDOMEN/KUB, 1 VIEW [id number] 12:12:00Reason for exam:->corpakShould this be performed at the bedside?->YesFINAL REPORT AP abdomen, three images HISTORY: Feeding tube COMPARISON: 11/01/2015 IMPRESSION: Feeding tube present with tip in abdomen. Bowel gas pattern appears grossly nonobstructive. Signed: Edgardo Guzman MDReport Verified Date/Time: 2017 12:12:56 Reading Location: [address] Consult Reading Room RAD , CHEST, 1 VIEW, NON [id number] 10:40:00Reason for exam:->post intubationShould this be performed at the bedside?->YesFINAL REPORT AP chest HISTORY: Intubation COMPARISON: None IMPRESSION: Endotracheal tube in satisfactory position. Right IJ central venous catheter at mid SVC. Heart size normal. Mild perihilar atelectasis. Lungs otherwise clear. No pneumothorax. Signed: Edgardo Guzman MDReport Verified Date/Time: 2017 10:40:47 Reading Location: [facility] B1 C013X Ortho Consult Reading Room TROPONIN [id number] 09:21:00 Test Item Value Reference Range Comments TROPONIN I (BEAKER) (test cdkx=103) < ng/mL 0.00-0.03 Troponin I (TnI) levels [...] failure, acidosis, acute neurological disease, and persistent tachyarrhythmia.[id number] 09:19:00 Test Item Value Reference Range Comments CARBAMAZEPINE LEVEL (BEAKER) (test njuv=687) 2.2 ug/mL 4.0-12.0 PHENYTOIN LEVEL, [id number] 09:18:00 Test Item Value Reference Range Comments PHENYTOIN (DILANTIN) (BEAKER) (test cwtp=178) 10.8 ug/mL 10.0-20.0 [id number] 09:03:00 Test Item Value Reference Range Comments PARTIAL THROMBOPLASTIN TIME (BEAKER) (test 27.5 seconds 22.5-36.0 jxbc=125) PROTHROMBIN TIME/[id number] 09:02:00 Test Item Value Reference Range Comments PROTIME (BEAKER) (test qkzm=022) 14.6 seconds 11.7-14.7 INR (BEAKER) (test ntgo=080) 1.1 <=5.9 RECOMMENDED COUMADIN/WARFARIN INR THERAPY RANGESSTANDARD DOSE: 2.0 - 3.0 Includes: PROPHYLAXIS forvenous thrombosis, systemic embolization; TREATMENT for venous thrombosis and/or pulmonary embolus.HIGH RISK: Target INR is 2.5-3.5 for patients with mechanical heart valves.PLATELET [id number] 08:53:00 Test Item Value Reference Range Comments PLATELET COUNT (BEAKER) (test culf=647) 184 K/CU MM 150-450 BASIC METABOLIC [id number] 07:07:00 Test Item Value Reference Range Comments SODIUM (BEAKER) (test 140 meq/L 136-145 mtwi=468) POTASSIUM (BEAKER) (test 4.0 meq/L 3.5-5.1 lyju=326) CHLORIDE (BEAKER) (test 115 meq/L 98-107 vwul=509) CO2 (BEAKER) (test 20 meq/L 22-29 yrsq=295) BLOOD UREA NITROGEN 7 mg/dL 7-21 (BEAKER) (test aufd=475) CREATININE (BEAKER) (test 0.83 mg/dL 0.57-1.25 qesh=400) GLUCOSE RANDOM (BEAKER) 95 mg/dL 70-105 (test gzcm=269) CALCIUM (BEAKER) (test 8.6 mg/dL 8.4-10.2 xwzl=302) EGFR (BEAKER) (test 109 mL/min/1.73 sq m ESTIMATED GFR IS NOT rezv=2298) ACCURATE CREATININE CLEARANCE IN PREDICTING GLOMERULAR FILTRATION RATE. ESTIMATED GFR IS NOT APPLICABLE FOR DIALYSIS PATIENTS. CREATINE KINASE (CK)2018-08-13 07:07:00 Test Item Value Reference Range Comments CREATINE KINASE TOTAL (BEAKER) (test kwyn=839) 1709 U/L 29-200 BASIC METABOLIC [id number] 05:19:00 Test Item Value Reference Range Comments SODIUM (BEAKER) (test 141 meq/L 136-145 xlkc=521) POTASSIUM (BEAKER) (test 4.1 meq/L 3.5-5.1 ofua=570) CHLORIDE (BEAKER) (test 117 meq/L 98-107 ndaf=760) CO2 (BEAKER) (test 19 meq/L 22-29 jayk=282) BLOOD UREA NITROGEN 11 mg/dL 7-21 (BEAKER) (test gdnc=388) CREATININE (BEAKER) (test 0.84 mg/dL 0.57-1.25 fbii=127) GLUCOSE RANDOM (BEAKER) 97 mg/dL 70-105 (test kxjs=910) CALCIUM (BEAKER) (test 8.8 mg/dL 8.4-10.2 nsda=978) EGFR (BEAKER) (test 107 mL/min/1.73 sq m ESTIMATED GFR IS NOT drsi=7228) ACCURATE CREATININE CLEARANCE IN PREDICTING GLOMERULAR FILTRATION RATE. ESTIMATED GFR IS NOT APPLICABLE FOR DIALYSIS PATIENTS. CREATINE KINASE (CK)2018-08-12 05:19:00 Test Item Value Reference Range Comments CREATINE KINASE TOTAL (BEAKER) (test hozh=293) 1766 U/L 29-200 POCT-GLUCOSE [id number] 17:02:00 Test Item Value Reference Range Comments POC-GLUCOSE METER (BEAKER) 93 mg/dL 70-110 TESTED AT [facility] [address] (test kvnl=7631) [facility] [address] [id number] 04:54:00 Test Item Value Reference Range Comments MAGNESIUM (BEAKER) (test viio=859) 2.1 mg/dL 1.6-2.6 BASIC METABOLIC [id number] 04:54:00 Test Item Value Reference Range Comments SODIUM (BEAKER) (test 142 meq/L 136-145 ouxe=884) POTASSIUM (BEAKER) (test 4.4 meq/L 3.5-5.1 bjup=850) CHLORIDE (BEAKER) (test 116 meq/L 98-107 beux=250) CO2 (BEAKER) (test 22 meq/L 22-29 jhmm=784) BLOOD UREA NITROGEN 8 mg/dL 7-21 (BEAKER) (test xhfl=493) CREATININE (BEAKER) (test 0.84 mg/dL 0.57-1.25 xsjh=469) GLUCOSE RANDOM (BEAKER) 88 mg/dL 70-105 (test iwxu=853) CALCIUM (BEAKER) (test 9.0 mg/dL 8.4-10.2 ueyq=183) EGFR (BEAKER) (test 107 mL/min/1.73 sq m ESTIMATED GFR IS NOT zgqa=9338) ACCURATE CREATININE CLEARANCE IN PREDICTING GLOMERULAR FILTRATION RATE. ESTIMATED GFR IS NOT APPLICABLE FOR DIALYSIS PATIENTS. CREATINE KINASE (CK)2018-08-11 04:54:00 Test Item Value Reference Range Comments CREATINE KINASE TOTAL (BEAKER) (test ksdo=645) 2031 U/L 29-200 EEG AWAKE AND [id number] 16:50:00Reason for exam:->seizure disorderNeurophysiology Electroencephalogram Report DATE OF REPORT: 08/10/18Date( s) of Study: 08/10/2018ACC: [id number]: [id number] time: 1517 hrsStop time: 1537 hrsICD-10: R56.9 Unspecified ConvulsionsCPT Code: 11481 EEG: awake and drowsy <40 min HISTORY: [...] Fellow Shamir Najera MD, MSClinical Neurophysiology/Epilepsy Attending [facility] Neurophysiology Service URINALYSIS W/ [id number] 05: 20:00 Test Item Value Reference Range Comments COLOR (BEAKER) (test hlgv=662) Yellow CLARITY (BEAKER) (test tors=554) Clear SPECIFIC GRAVITY UA (BEAKER) (test cnfn=908) 1.011 1.001-1.035 PH UA (BEAKER) (test eqrr=639) 7.0 5.0-8.0 PROTEIN UA (BEAKER) (test hcpo=041) Negative Negative GLUCOSE UA (BEAKER) (test ztfe=966) Negative Negative KETONES UA (BEAKER) (test cami=439) Negative Negative BILIRUBIN UA (BEAKER) (test vvjn=908) Negative Negative BLOOD UA (BEAKER) (test kxta=182) Negative Negative NITRITE UA (BEAKER) (test rvzg=786) Negative Negative LEUKOCYTE ESTERASE UA (BEAKER) (test gzth=908) Negative Negative UROBILINOGEN UA (BEAKER) (test rmkl=187) 2.0 mg/dL 0.2-1.0 RBC UA (BEAKER) (test dkzu=425) < /HPF WBC UA (BEAKER) (test ojqv=419) 0 /HPF SOURCE(BEAKER) (test yodc=5685) [id number] 03:17:00 Test Item Value Reference Range Comments CARBAMAZEPINE LEVEL (BEAKER) (test ahdl=547) < ug/mL 4.0-12.0 [id number] 02:33:00 Test Item Value Reference Range Comments PHOSPHORUS (BEAKER) (test etrs=579) 2.8 mg/dL 2.3-4.7 [id number] 02:33:00 Test Item Value Reference Range Comments MAGNESIUM (BEAKER) (test rvis=937) 2.2 mg/dL 1.6-2.6 BASIC METABOLIC [id number] 02:33:00 Test Item Value Reference Range Comments SODIUM (BEAKER) (test 138 meq/L 136-145 asmd=681) POTASSIUM (BEAKER) (test 3.4 meq/L 3.5-5.1 kapc=085) CHLORIDE (BEAKER) (test 109 meq/L 98-107 jxpc=714) CO2 (BEAKER) (test 21 meq/L 22-29 qqdh=066) BLOOD UREA NITROGEN 16 mg/dL 7-21 (BEAKER) (test onla=553) CREATININE (BEAKER) (test 0.83 mg/dL 0.57-1.25 pkwn=969) GLUCOSE RANDOM (BEAKER) 105 mg/dL 70-105 (test mrjc=374) CALCIUM (BEAKER) (test 8.7 mg/dL 8.4-10.2 zcpb=007) EGFR (BEAKER) (test 109 mL/min/1.73 sq m ESTIMATED GFR IS NOT fhft=1898) ACCURATE CREATININE CLEARANCE IN PREDICTING GLOMERULAR FILTRATION RATE. ESTIMATED GFR IS NOT APPLICABLE FOR DIALYSIS PATIENTS. HEPATIC FUNCTION [id number] 02:33:00 Test Item Value Reference Range Comments TOTAL PROTEIN (BEAKER) (test debh=614) 6.5 gm/dL 6.0-8.3 ALBUMIN (BEAKER) (test habp=5248) 3.9 g/dL 3.5-5.0 BILIRUBIN TOTAL (BEAKER) (test psgp=556) 0.8 mg/dL 0.2-1.2 BILIRUBIN DIRECT (BEAKER) (test uoig=361) 0.3 mg/dL 0.1-0.5 ALKALINE PHOSPHATASE (BEAKER) (test yfzm=083) 85 U/L 40-150 AST (SGOT) (BEAKER) (test lzxk=785) 43 U/L 5-34 ALT (SGPT) (BEAKER) (test vfnb=985) 33 U/L 6-55 CREATINE KINASE (CK)2018-08-10 02:33:00 Test Item Value Reference Range Comments CREATINE KINASE TOTAL (BEAKER) (test jmzd=288) 968 U/L 29-200 C-REACTIVE [id number] 02:33:00 Test Item Value Reference Range Comments C-REACTIVE PROTEIN (BEAKER) (test edil=289) 0.45 mg/dL 0.00-0.50 LACTIC ACID, VENOUS, WHOLE [id number] 02:26:00 Test Item Value Reference Range Comments LACTATE BLOOD VENOUS (2) 1.0 mmol/L 0.5-2.2 Specimen slightly hemolyzed (BEAKER) (test wpdf=1143) Effective 03/18/2016: Units/Reference Range ChangeNew: 0.5-2.2 mmol/L Previous: 5 -20 mg/dLCBC W/PLT COUNT & AUTO [id number] 02:05:00 Test Item Value Reference Range Comments WHITE BLOOD CELL COUNT (BEAKER) (test wukj=781) 7.7 K/ L 3.5-10.5 RED BLOOD CELL COUNT (BEAKER) (test drzt=748) 4.16 M/ L 4.63-6.08 HEMOGLOBIN (BEAKER) (test dmct=930) 12.3 GM/DL 13.7-17.5 HEMATOCRIT (BEAKER) (test iqzi=924) 36.8 % 40.1-51.0 MEAN CORPUSCULAR VOLUME (BEAKER) (test amia=907) 88.5 fL 79.0-92.2 MEAN CORPUSCULAR HEMOGLOBIN (BEAKER) (test 29.6 pg 25.7-32.2 uydp=613) MEAN CORPUSCULAR HEMOGLOBIN CONC (BEAKER) (test 33.4 GM/DL 32.3-36.5 qujj=285) RED CELL DISTRIBUTION WIDTH (BEAKER) (test 13.4 % 11.6-14.4 nvxf=648) PLATELET COUNT (BEAKER) (test ynaq=820) 195 K/CU MM 150-450 MEAN PLATELET VOLUME (BEAKER) (test ntqs=519) 11.2 fL 9.4-12.4 NUCLEATED RED BLOOD CELLS (BEAKER) (test 0 /100 WBC 0-0 eifn=966) NEUTROPHILS RELATIVE PERCENT (BEAKER) (test 58 % beeh=693) LYMPHOCYTES RELATIVE PERCENT (BEAKER) (test 30 % ltov=819) MONOCYTES RELATIVE PERCENT (BEAKER) (test 10 % gbfh=917) EOSINOPHILS RELATIVE PERCENT (BEAKER) (test 2 % vukg=046) BASOPHILS RELATIVE PERCENT (BEAKER) (test 1 % zucm=467) NEUTROPHILS ABSOLUTE COUNT (BEAKER) (test 4.46 K/ L 1.78-5.38 wcty=303) LYMPHOCYTES ABSOLUTE COUNT (BEAKER) (test 2.31 K/ L 1.32-3.57 vvio=657) MONOCYTES ABSOLUTE COUNT (BEAKER) (test 0.74 K/ L 0.30-0.82 xojz=053) EOSINOPHILS ABSOLUTE COUNT (BEAKER) (test 0.13 K/ L 0.04-0.54 xjep=753) BASOPHILS ABSOLUTE COUNT (BEAKER) (test 0.04 K/ L 0.01-0.08 mibm=939) IMMATURE GRANULOCYTES-RELATIVE PERCENT (BEAKER) 0 % 0-1 (test eyao=4053) POCT-BLOOD GASES, [id number] 01:50:00 Test Item Value Reference Range Comments TEMP, CELSIUS-POC (BEAKER) 37.0 (test ngcg=0710) FIO2-POC (BEAKER) (test TESTED AT [address] igtr=5872) [place] [address] PH, ARTERIAL-POC (BEAKER) 7.396 7.350-7.450 (test icys=2600) PCO2, ARTERIAL-POC (BEAKER) 35.3 mm Hg 35.0-45.0 (test jqqz=0153) PO2, ARTERIAL-POC (BEAKER) 104.0 mm Hg 80.0-90.0 (test jgpf=7284) SO2, ARTERIAL-POC (BEAKER) 98.0 % 96.0-97.0 (test jxhq=1694) HCO3, ARTERIAL-POC (BEAKER) 21.7 meq/L 21.0-29.0 (test lszp=6996) BASE EXCESS, ARTERIAL-POC -3.0 meq/L -2.0-3.0 (BEAKER) (test cqxt=4191) [id number] 01:50:00 Test Item Value Reference Range Comments POC-SODIUM (BEAKER) (test 140 meq/L 135-148 TESTED AT [address] xkhz=7763) [place] [address] [id number] 01:50:00 Test Item Value Reference Range Comments POC-POTASSIUM (BEAKER) (test 3.4 meq/L 3.6-5.5 TESTED AT [place] [address] [address] ynah=0854) [place] [address] [id number] 01:50:00 Test Item Value Reference Range Comments POC-GLUCOSE (BEAKER) (test 105 mg/dL 70-110 TESTED AT [place] [address] [address] zzhd=7467) [place] [address] POCT-CALCIUM [id number] 01:50:00 Test Item Value Reference Range Comments POC-CALCIUM IONIZED (BEAKER) 1.15 mmol/L 1.12-1.27 TESTED AT [address] (test vdgr=4774) [place] [address] [id number] 01:50:00 Test Item Value Reference Range Comments POC-HEMATOCRIT (BEAKER) (test 35 % 40-50 TESTED AT [address] lmbk=3507) [place] [address] [id number] 01:50:00 Test Item Value Reference Range Comments POC-HEMOGLOBIN ([facility]) 11.9 g/dL 13.0-16.8 TESTED AT [address] (test eqqi=5110) [place] [address]TESTED AT [place] [address] POCT-LACTIC ACID, [id number] 01:49:00 Test Item Value Reference Range Comments POC-LACTIC ACID, ARTERIAL 0.9 mmol/L 0.4-1.3 TESTED AT [address] ([facility]) (test nyse=6198) [place] [address]
[2020-02-07] MEDS ORDERED: NA CHLORIDE 0.9% IV ONE ×2 (07:30→19:00)
[2020-02-07] MEDS ORDERED: FOSPHENYTOIN PE IV ONE (07:30)
[2020-02-07] MEDS ORDERED: NA CHLORIDE 0.9% 1,000 ML ONE (07:38)
[2020-02-07 07:51] LABS: Absolute Lymphocytes (CBC) 2.1 K/uL (0.7-4.9); Basophils % 0.8 % (0-1.3); Hematocrit 37.9 % (39.6-49.0); Lymphocytes % 27.5 % (15.3-44.8); MPV 9.2 fL (7.6-11.3); RBC Red Blood Cell Count 4.33 M/uL (4.33-5.43)
[2020-02-07] MEDS ORDERED: DIAZEPAM 10 MG/2 ML INJ SYRINGE ONE (07:55)
--- NOTE | 2020-02-07 08:03 | RAD REPORT ---
EXAM DESCRIPTION: CT - Head C Spine Mpr Wo Con - 02/07/2020 7:30 am CLINICAL HISTORY: Seizure. Head and neck injury status post fall. Head and neck pain COMPARISON: 2017 TECHNIQUE: Computed axial tomography of the head and cervical spine was obtained. Sagittal and coronal reconstruction was performed. All CT scans are performed using dose optimization technique as appropriate and may include automated exposure control or mA/KV adjustment according to patient size. FINDINGS: An intracranial bleed is not seen. The ventricles are normal in caliber. An extra-axial fl uid collection is not noted.Fluid within the visualized sinuses and mastoids is not seen. Cerebellar tonsillar ectopia is present A cervical fracture is not visualized. No dislocation is noted. . 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 A cervical fracture is not visualized. If the patient continues to have symptoms to suggest intracra nial /spinal cord pathology then MRI would be recommended
[2020-02-07] MEDS ORDERED: levETIRAcetam 1,000 MG in NA CHLORIDE 0.9% 100 ML IV ONE (08:15)
[2020-02-07 08:51] LABS: Barbiturates NEGATIVE (NEGATIVE); Benzodiazepines POSITIVE (NEGATIVE); Cocaine NEGATIVE (NEGATIVE); METHAMPHETAM NEGATIVE (NEGATIVE); Methadone NEGATIVE (NEGATIVE); Opiates NEGATIVE (NEGATIVE); Phencyclidine NEGATIVE (NEGATIVE); THC Cannibis POSITIVE (NEGATIVE)
--- NOTE | 2020-02-07 09:28 | ER ---
Nurse's Notes [facility] Name: Alfie Zavala Age: 30 yrs Sex: Male : 1990 Arrival Date: 02/07/2020 Time: 07:03 Bed 17 Private MD: Diagnosis: Epilepsy, unspecified, intractable, with status epilepticus Presentation: 02/06 07:09 Chief complaint: EMS states: called out for seizure, hx of seizures, has not had time em to fill medication in about 2 weeks, was given 10 mg Versed [employer]IST, pt actively seizing on arrival, Provider at bedside. Coronavirus screen: Patient denies fever greater than 100.4F, cough, shortness of breath, or difficulty breathing. Proceed with normal triage process. Ebola Screen: Patient negative for fever greater than or equal to 101.5 degrees Fahrenheit, and additional compatible Ebola Virus Disease symptoms Patient denies exposure to infectious person. Patient denies travel to an Ebola-affected area in the 21 days before illness onset. No symptoms or risks identified at this time. Initial Sepsis Screen: Does the patient meet any 2 criteria? HR > 90 bpm. No. Patient's initial sepsis screen is negative. Does the patient have a suspected source of infection? No. Patient's initial sepsis screen is negative. Risk Assessment: Do you want to hurt yourself or someone else? Patient reports no desire to harm self or others. 07:09 Method Of Arrival: Ambulatory em 07:09 Acuity: KEN 2 em Triage Assessment: 07:09 General: Appears seizing. Behavior is tonic-clonic seizure activity noted. Pain: Unable em to use pain scale. Patient appears seizing. Historical: - Allergies: 07:21 No Known Allergies; em - Home Meds: 07:21 diazepam 10 mg Oral tab 1 tab daily prn for Acute Repetitive Seizures, Anxiety em [Active]; fluoxetine 40 mg Oral cap 1 cap once daily [Active]; gabapentin 300 mg Oral cap 1 cap TID prn [Active]; lamotrigine 200 mg Oral tab 2 tabs once daily [Active]; sumatriptan oral 50 mg as needed [Active]; topiramate 50 mg Oral CSpX 3 caps twice a day [Active]; zolpidem 12.5 mg Oral TbMP 1 tab qhs prn [Active]; - PMHx: 07:12 Depression; Headaches; Seizures; status epilepticus; em - Immunization history:: Adult Immunizations unknown. - Social history:: Smoking status: unknown. - Family history:: not pertinent. - Hospitalizations: : No recent hospitalization is reported. Screenin:09 Abuse screen: Denies threats or abuse. Nutritional screening: No deficits noted. em Tuberculosis screening: No symptoms or risk factors identified. Fall Risk Secondary diagnosis (15 points) seizures, IV access (20 points). Total Adams Fall Scale indicates Low Risk Score (25-44 pts). Fall prevention measures have been instituted. Placed close to Nursing Station Frequent Obs/Assesments occuring. Assessment: 07:09 Neuro: Seizure activity noted at this time. Dr. Rodriguez at bedside, sz activity lasted em about 30 seconds. Respiratory: Airway is patent Respiratory effort is even, unlabored, Respiratory pattern is regular. Derm: Skin is intact, is thin, Skin is clammy, Skin is pink. 07:23 Reassessment: rapid response called to CT, received verbal orders to give 1 mg Ativan em IV x 1. 07:30 Reassessment: pt returned from CT via stretcher, GCS 15, awake and drowsy, respirations em even and unlabored, skin pink warm and dry. 07:43 Reassessment: pt actively seizing, given Ativan 2 mg IV. em 08:08 Reassessment: recollect sent to lab. em 08:30 Reassessment: pt request to use a urinal at bedside, tolerated well. em 08:39 Reassessment: Patient appears in no apparent distress at this time. Patient is alert, em oriented x 3, equal unlabored respirations, skin warm/dry/pink. lab at bedside to recollect labs for second time. 08:51 Reassessment: pt actively seizing, Dr. Rodriguez at bedside, no new orders at this time. em 08:58 Reassessment: pt awake and using phone, no incontinence or postictal state noted. em 09:18 Reassessment: Patient appears in no apparent distress at this time. lab at bedside. em 09:34 Reassessment: Patient appears in no apparent distress at this time. Patient and/or em family updated on plan of care and expected duration. Pain level reassessed. Patient is alert, oriented x 3, equal unlabored respirations, skin warm/dry/pink. 10:20 Reassessment: actively having a tonic-clonic Sz, lasted 60-90 seconds, no interventions em at this time, no postictal state noted. 11:25 Reassessment: hospitalist at bedside. em 12:40 Reassessment: pt having sz like activity, pt awake and alert afterwards, states he em forgot he was in a hospital, Dr. Rodriguez notified of status, will continue to monitor. Vital Signs: 07:09 BP 140 / 87; Pulse 108; Resp 22; Pulse Ox 100% on 2 lpm NC; em 07:15 Weight 113.4 kg; em 07:21 Temp 98.0; em 07:30 BP 131 / 66; Pulse 81; Resp 18; Pulse Ox 99% on R/A; em 09:30 BP 112 / 78; Pulse 76; Resp 18; Pulse Ox 99% on R/A; em 11:30 BP 127 / 64; Pulse 18; Resp 89; Pulse Ox 99% on R/A; em 12:30 BP 107 / 61; Pulse 91; Resp 16; Pulse Ox 99% on R/A; em [place] Coma Score: 07:09 Eye Response: to pain(2). Verbal Response: confused(4). Motor Response: withdraws from em pain(4). Total: 10. ED Course: 07:03 Patient arrived in ED. ds1 07:04 Aba Rodriguez MD is Attending Physician. rn 07:08 Hugh Fagan RN is Primary Nurse. em 07:09 Patient has correct armband on for positive identification. Bed in low position. Call em light in reach. Adult w/ patient. Seizure precautions initiated. Pulse ox on. NIBP on. 07:09 Maintain EMS IV. Dressing intact. Good blood return noted. Site clean \T\ dry. Gauge \T\ em site: 20 RAC. 07:11 Triage completed. em 07:12 Arm band placed on. em 07:40 Initial lab(s) drawn, by me, sent to lab. em1 07:49 CT Head C Spine In Process Unspecified. EDMS 09:25 Kindra Laurent MD is Hospitalizing Provider. rn 13:03 No provider procedures requiring assistance completed. Patient admitted, IV remains in em place. Administered Medications: 07:07 Drug: Ativan 1 mg Route: IVP; Site: right hand; em 07:10 Follow up: Response: No adverse reaction; Marked relief of symptoms em 07:25 Drug: Ativan 1 mg Route: IVP; Site: right hand; em 07:27 Follow up: Response: No adverse reaction; Marked relief of symptoms em 07:39 Drug: NS 0.9% 1000 ml Route: IV; Rate: 1000 ml; Site: right hand; em 10:58 Follow up: IV Status: Completed infusion; IV Intake: 1000ml em 07:41 Drug: Fosphenytoin 15 mg/kg Route: IVPB; Infused Over: 15 mins; Site: right hand; em 08:00 Follow up: Response: No adverse reaction; No change in condition; IV Status: Completed em infusion; IV Intake: 100ml 07:43 Drug: Ativan 2 mg Route: IVP; Site: right hand; em 07:45 Follow up: Response: No adverse reaction; Marked relief of symptoms em 08:16 Drug: Keppra 1000 mg Route: IV; Rate: calculated rate; Site: right hand; em 08:30 Follow up: Response: No adverse reaction; No change in condition; IV Status: Completed em infusion; IV Intake: 100ml Intake: 08:00 IV: 100ml; Total: 100ml. em 08:30 IV: 100ml; Total: 200ml. em 10:58 IV: 1000ml; Total: 1200ml. em Output: 08:30 Urine: 800ml (Voided); Total: 800ml. em Outcome: 09:26 Decision to Hospitalize by Provider. rn 13:03 Admitted to Med/surg accompanied by tech, via stretcher, room 208, with chart, Report em called to ESCOBAR Barakat 13:03 Condition: good 13:03 Instructed on the need for admit, Demonstrated understanding of instructions. 13:14 Patient left the ED. em Signatures: Dispatcher [employer] Hugh Lopez RN RN em Sanford, Demi ds1 Aba Rodriguez MD MD rn Martinez, Eric em1 Corrections: (The following items were deleted from the chart) 07:21 07:12 Allergies: Ativan; em em
--- NOTE | 2020-02-07 09:28 | EDPHYS ---
Physician Documentation [facility] Name: Alfie Zavala Age: 30 yrs Sex: Male : 1990 Arrival Date: 02/07/2020 Time: 07:03 Bed 17 Private MD: ED Physician Aba Rodriguez HPI: 02/06 07:57 This 30 yrs old Male presents to ER via Ambulatory with complaints of Seizure. rn 07:57 The patient presents with a history of multiple seizures, a total of 3. Character of rn seizure(s): Loss of consciousness: the patient did not lose consciousness, Motor activity: generalized, Incontinence: none, Circulation: the patient did not experience evidence of pulse disturbance. Seizure onset: this morning. Associated injury: Head/face:. Current symptoms: confusion. The patient has experienced similar episodes in the past. Reports hx of seizures following traumatic head injury as teenager, states takes dilantin and other unknown seizure medication, per EMS, has had 3 seizures so far, brief, generalized. Patient denies fever or feeling ill. Reports has been out of his medication for atleast 2 weeks. Denies recent drug use.. Historical: - Allergies: 07:21 No Known Allergies; em - Home Meds: 07:21 diazepam 10 mg Oral tab 1 tab daily prn for Acute Repetitive Seizures, Anxiety em [Active]; fluoxetine 40 mg Oral cap 1 cap once daily [Active]; gabapentin 300 mg Oral cap 1 cap TID prn [Active]; lamotrigine 200 mg Oral tab 2 tabs once daily [Active]; sumatriptan oral 50 mg as needed [Active]; topiramate 50 mg Oral CSpX 3 caps twice a day [Active]; zolpidem 12.5 mg Oral TbMP 1 tab qhs prn [Active]; - PMHx: 07:12 Depression; Headaches; Seizures; status epilepticus; em - Immunization history:: Adult Immunizations unknown. - Social history:: Smoking status: unknown. - Family history:: not pertinent. - Hospitalizations: : No recent hospitalization is reported. ROS: 07:59 Constitutional: Negative for fever, chills, and weight loss, Eyes: Negative for injury, rn pain, redness, and discharge, Neck: Negative for injury, pain, and swelling, Cardiovascular: Negative for chest pain, palpitations, and edema, Respiratory: Negative for shortness of breath, cough, wheezing, and pleuritic chest pain, Abdomen/GI: Negative for abdominal pain, nausea, vomiting, diarrhea, and constipation, Back: Negative for injury and pain, MS/Extremity: Negative for injury and deformity, Skin: Negative for injury, rash, and discoloration, Neuro: + headache and seizure Exam: 07:59 Constitutional: This is a well developed, well nourished patient who is awake, alert rn Head/Face: Normocephalic, + mild swelling and tenderness right scalp ENT: No oral trauma Cardiovascular: Regular rate and rhythm. No pulse deficits. Respiratory: No increased work of breathing, no retractions or nasal flaring. Abdomen/GI: soft, non-tender MS/ Extremity: Pulses equal, no cyanosis. Neuro: Awake and alert, GCS 15. Motor strength 5/5 in all extremities. Sensory grossly intact. 08:25 ECG was reviewed by the Attending Physician. rn Vital Signs: 07:09 BP 140 / 87; Pulse 108; Resp 22; Pulse Ox 100% on 2 lpm NC; em 07:15 Weight 113.4 kg; em 07:21 Temp 98.0; em 07:30 BP 131 / 66; Pulse 81; Resp 18; Pulse Ox 99% on R/A; em 09:30 BP 112 / 78; Pulse 76; Resp 18; Pulse Ox 99% on R/A; em 11:30 BP 127 / 64; Pulse 18; Resp 89; Pulse Ox 99% on R/A; em 12:30 BP 107 / 61; Pulse 91; Resp 16; Pulse Ox 99% on R/A; em [place] Coma Score: 07:09 Eye Response: to pain(2). Verbal Response: confused(4). Motor Response: withdraws from em pain(4). Total: 10. MDM: 07:04 Patient medically screened. rn 09:18 ED course: Consulted with Dr. Christensen, will consult on patient, will admit to rn hospitalist. . 09:21 Differential diagnosis: seizure. Data reviewed: vital signs, nurses notes, lab test rn result(s), EKG, radiologic studies, CT scan, and as a result, I will admit patient. Counseling: I had a detailed discussion with the patient and/or guardian regarding: the historical points, exam findings, and any diagnostic results supporting the discharge/admit diagnosis, lab results, radiology results, the need for further work-up and treatment in the hospital. Response to treatment: the patient's symptoms have mildly improved after treatment, and as a result, I will admit patient. Admission orders: after a detailed discussion of the patient's condition and case, the admit orders are written by me. 02/06 07:07 Order name: CBC with Diff; Complete Time: 07:55 02/06 07:07 Order name: Basic Metabolic Panel 02/06 07:07 Order name: Phenytoin (dilantin) 02/06 07:59 Order name: Urine Drug Screen; Complete Time: 09:17 02/06 08:36 Order name: Urine Dipstick--Ancillary (enter results); Complete Time: 10:15 02/06 11:17 Order name: Liver (Hepatic) Function [facility] 02/06 07:07 Order name: CT Head C Spine; Complete Time: 08:28 02/06 07:07 Order name: EKG; Complete Time: 07:09 02/06 07:07 Order name: IV Start; Complete Time: 07:19 02/06 07:07 Order name: EKG - Nurse/Tech; Complete Time: 07:58 02/06 07:07 Order name: Glucose Level; Complete Time: 07:18 02/06 07:53 Order name: Labs - recollect needed: chemistry ; Complete Time: 08:12 02/06 08:25 Order name: Labs - recollect needed: recollect c7. lab will collect specimen; Complete bd Time: 10:15 02/06 11:15 Order name: CONS Pharmacy Consult [facility] 02/06 11:15 Order name: Regular [facility] EC: Rate is 99 beats/min. Rhythm is regular. QRS [place] is Normal. [place] interval is normal. QRS rn interval is normal. QT interval is normal. No Q waves. T waves are Normal. No ST changes noted. Clinical impression: Normal ECG. Interpreted by me. Reviewed by me. Administered Medications: 07:07 Drug: Ativan 1 mg Route: IVP; Site: right hand; em 07:10 Follow up: Response: No adverse reaction; Marked relief of symptoms em 07:25 Drug: Ativan 1 mg Route: IVP; Site: right hand; em 07:27 Follow up: Response: No adverse reaction; Marked relief of symptoms em 07:39 Drug: NS 0.9% 1000 ml Route: IV; Rate: 1000 ml; Site: right hand; em 10:58 Follow up: IV Status: Completed infusion; IV Intake: 1000ml em 07:41 Drug: Fosphenytoin 15 mg/kg Route: IVPB; Infused Over: 15 mins; Site: right hand; em 08:00 Follow up: Response: No adverse reaction; No change in condition; IV Status: Completed em infusion; IV Intake: 100ml 07:43 Drug: Ativan 2 mg Route: IVP; Site: right hand; em 07:45 Follow up: Response: No adverse reaction; Marked relief of symptoms em 08:16 Drug: Keppra 1000 mg Route: IV; Rate: calculated rate; Site: right hand; em 08:30 Follow up: Response: No adverse reaction; No change in condition; IV Status: Completed em infusion; IV Intake: 100ml Disposition: 02/07/20 09:26 Hospitalization ordered by Kindra Laurent for Inpatient Admission. Preliminary diagnosis is Epilepsy, unspecified, intractable, with status epilepticus. - Bed requested for Telemetry/MedSurg (Inpatient). - Status is Inpatient Admission. em - Condition is Stable. - Problem is new. - Symptoms have improved. Critical care time excluding procedures: 09:21 Critical care time: Bedside Care: 25 minutes, Consultation: 5 minutes. Total time: 30 rn minutes Signatures: Dispatcher [employer] Penny Saldivar Edgar, RN RN em Williams, Irene, RN RN Aba Rodriguez MD MD journeyman glazier: (The following items were deleted from the chart) 07:21 07:12 Allergies: Ativan; em em 11:52 09:26 Hospitalization Ordered by Kindra Laurent MD for Inpatient Admission. Preliminary bd diagnosis is Epilepsy, unspecified, intractable, with status epilepticus. Bed requested for Intensive Care Unit. Status is Inpatient Admission. Condition is Stable. Problem is new. Symptoms have improved. rn 13:14 11:52 02/07/2020 09:26 Hospitalization Ordered by Kindra Laurent MD for Inpatient em Admission. Preliminary diagnosis is Epilepsy, unspecified, intractable, with status epilepticus. Bed requested for Telemetry/MedSurg (Inpatient). Status is Inpatient Admission. Condition is Stable. Problem is new. Symptoms have improved. bd
[2020-02-07 09:53] LABS: BUN Blood Urea Nitrogen 11 mg/dL (7-18); Bicarbonate 25 mmol/L (21-32); Glucose Level 111 mg/dL (74-106); Sodium Level 143 mmol/L (136-145)
[2020-02-07 10:05] LABS: Urine Blood TRACE (NEG); Urine Glucose NEGATIVE (NEG); Urine Protein NEGATIVE (NEG)
--- NOTE | 2020-02-07 10:56 | EKG ---
Test Date: 2020-02-07 Test Time: 07:44:33 Radius Grinder: CONCEPCIÓN MEASUREMENT RESULTS: Intervals: Rate: 99 VA: 148 QRSD: 84 QT: 334 QTc: 428 [place]: P: 61 VA: 148 QRS: 19 T: 32 INTERPRETIVE STATEMENTS: Normal sinus rhythm Normal ECG Compared to ECG 12/25/2018 22:51:06 Left ventricular hypertrophy no longer present Myocardial infarct finding no longer present Electronically Signed On 02-07-20 10:56:03 CDT by Jamey Pace
[2020-02-07 11:47] LABS: ALT/SGPT 32 U/L (12-78); AST/SGOT 26 U/L (15-37); Albumin 3.4 g/dL (3.4-5.0); Alkaline Phosphatase 101 U/L (45-117); Bilirubin Direct < 0.1 mg/dL (0-0.2); Bilirubin Total 0.3 mg/dL (0.2-1.0); Protein, Total 6.8 g/dL (6.4-8.2)
[2020-02-07 12:01] LABS: Phenytoin (Dilantin) Level 18.1 ug/mL (10.0-20.0)
--- NOTE | 2020-02-07 13:10 | P.HP ---
Certification for Inpatient Patient admitted to: Observation Practitioner: I am a practitioner with admitting privileges, knowledge of patient current condition, hospital course, and medical plan of care. Services: Services provided to patient in accordance with Admission requirements found in Title 42 Section 412.3 of the Code of Federal Regulations Patient History Date of Service: 02/07/20 Reason for admission: Seizure History of Present Illness: Mr. Zavala is a 30-year-old male with a history of seizure disorder, status post epilepticus required intubation in the past, presented to the ER after several grand mal seizures today. Symptoms started this morning while he was walking his dog. Patient usually has an aura with seizure, which he did this time. He has minor bruises on RUE. He has been off of this medication for at least a week due to affordability. He also had a witnessed seizure in the emergency room as well, provider reported at least 8 episodes today. Paitent unable to recall. Patient was postictal, currently at baseline. He denied any fever or chills. Allergies lorazepam [From Ativan] Allergy (Unknown, Verified 11/24/18 05:12) Rash Home Medications: Fluoxetine HCl [Prozac*] 40 mg PO DAILY 11/24/18 Gabapentin 300 mg PO TID PRN 11/24/18 Lamotrigine [Lamictal] 400 mg PO DAILY 11/24/18 Sumatriptan [Imitrex*] 50 mg PO Q1H PRN 11/24/18 Topiramate 3 tab PO BID 11/24/18 diazePAM [Diazepam] 10 mg PO BEDTIME PRN 11/24/18 - Past Medical/Surgical History Diabetic: No -: Seizure -: Depression -: Headaches -: Status epilepticus -: Appendectomy - Family History Father -: Diabetes Brother -: Hypertension Sister -: Cancer - Social History Smoking Status: Never smoker Alcohol use: No CD- Drugs: Yes Caffeine use: Yes Review of Systems 10-point ROS is otherwise unremarkable Neurological: Seizures, As per HPI Physical Examination - Vital Signs Temperature: 97.5 F Blood Pressure: 131/66 Pulse: 81 Respirations: 14 Pulse Ox (%): 96 - Physical Exam General: Alert, In no apparent distress HEENT: Atraumatic, PERRLA, Mucous membr. moist/pink, EOMI, Sclerae nonicteric Neck: Supple, 2+ carotid pulse no bruit, No LAD, Without JVD or thyroid abnormality Respiratory: Clear to auscultation bilaterally, Normal air movement Cardiovascular: Regular rate/rhythm, Normal S1 S2 Gastrointestinal: Normal bowel sounds, No tenderness Musculoskeletal: No tenderness Integumentary: No rashes Neurological: Normal gait, Normal speech, Normal strength at 5/5 x4 extr, Normal tone, Normal affect Lymphatics: No axilla or inguinal lymphadenopathy - Studies Laboratory Data (last 24 hrs) 02/07/20 09:28: Total Bilirubin 0.3, AST 26, ALT 32, Alkaline Phosphatase 101 02/07/20 09:28: Sodium 143, Potassium 4.0, BUN 11, Creatinine 0.88, Glucose 111 H 02/07/20 07:35: WBC 7.6, Hgb 12.8 L, Hct 37.9 L, Plt Count 216 Assessment and Plan - Plan Mr. Zavala is 30-year-old male with a history of seizure disorder presented with seizure. #Seizure-Intractable. Breakthrough due to compliance. Loaded with fosphenytoin and keppra in the ED -patient is unsure of home meds. -based on prior list, was on lamictal. -Initiated keppra. Consult neuro for assistance. -seizure precaution. #Illicit drug use- UDS positive for marijuana #Noncompliance- barrier discussed. #Depression-reinitiate effexor. withdrawal symptoms. DVT ppx- SCD Patient is full code. dispo -obs. pending clinical improvement. Discharge Plan: Home - Advance Directives Does patient have a Living Will: No Does patient have a Durable POA for Healthcare: No - Code Status/Comfort Care Code Status Assessed: Yes Code Status: Full Code
[2020-02-07 14:08] VITALS: BMI 37.6
[2020-02-07] MEDS ORDERED: INFLUENZA VACCINE (for 3y+) 0.5 ML DOSE IMVAC ONE (15:00)
[2020-02-07] MEDS: LORazepam 2 MG/ML VIAL IV PRN ×2 (17:41→21:14)
[2020-02-07] MEDS ORDERED: PHENYTOIN NA 100 MG/2 ML IV ONE (17:58)
[2020-02-07] MEDS ORDERED: PHENYTOIN IV ONE (19:00)
[2020-02-07] MEDS: levETIRAcetam 500 MG TAB PO SCH (21:01)
[2020-02-07] MEDS: TOPIRAMATE 25 MG TAB PO SCH (21:02)
[2020-02-07] MEDS: VENLAFAXINE HCL 75 MG TABLET PO SCH (21:02)
[2020-02-07] MEDS: TOPIRAMATE 100 MG TAB PO SCH (21:02)
[2020-02-08] MEDS: PHENYTOIN NA 100 MG/2 ML IV SCH ×2 (00:30→09:25)
[2020-02-08] MEDS: LORazepam 2 MG/ML VIAL IV PRN ×4 (03:53→20:50)
[2020-02-08 05:22] LABS: Absolute Lymphocytes (CBC) 2.4 K/uL (0.7-4.9); Basophils % 0.7 % (0-1.3); Hematocrit 40.3 % (39.6-49.0); Lymphocytes % 36.7 % (15.3-44.8); MPV 9.3 fL (7.6-11.3); RBC Red Blood Cell Count 4.55 M/uL (4.33-5.43)
[2020-02-08 05:40] LABS: BUN Blood Urea Nitrogen 8 mg/dL (7-18); Bicarbonate 25 mmol/L (21-32); Glucose Level 95 mg/dL (74-106); Potassium 4.3 mmol/L (3.5-5.1); Sodium Level 142 mmol/L (136-145)
--- NOTE | 2020-02-08 07:38 | P.PN ---
Date of Service: 02/07/20 Patient apparently had 2 seizures. Patient woke up right after the seizures and he was asking the nursing staff what happened. He started getting on a cell phone & stayed on the cell phone until he got the Ativan. He may be having pseudoseizures. Will get an EEG this morning. He has had prior studies including MRI and EEG which have been unremarkable. Will repeat the EEG and get Neurology consultation. He it does not have a postictal state according to the nurses staff. He probably will need a video EEG as an outpatient to truly assess if he is having seizures.
[2020-02-08] MEDS ORDERED: lamoTRIgine 100 MG TAB PO SCH (09:00)
[2020-02-08] MEDS: VENLAFAXINE HCL 75 MG TABLET PO SCH ×2 (09:24→20:46)
[2020-02-08] MEDS: TOPIRAMATE 25 MG TAB PO SCH ×2 (09:25→20:46)
[2020-02-08] MEDS: TOPIRAMATE 100 MG TAB PO SCH ×2 (09:25→20:46)
[2020-02-08] MEDS: levETIRAcetam 500 MG TAB PO SCH ×2 (09:25→20:46)
[2020-02-08] MEDS ORDERED: VALPROATE SODIUM INJ 500 MG in NA CHLORIDE 0.9% 100 ML IV ONE (12:01)
--- NOTE | 2020-02-08 12:09 | RAD REPORT ---
EXAM DESCRIPTION: CT - Head Brain Wo Cont - 02/08/2020 12:02 pm CLINICAL HISTORY: fall, seizure, head injury COMPARISON: Head Brain Wo Cont dated 11/24/2018 TECHNIQUE: Axial 5 mm thick images of the head were obtained without IV contrast. All CT scans are performed using dose optimization technique as appropriate and may include automated exposure control or mA/KV adjustment according to patient size. FINDINGS: No intracranial hemorrhage, mass, edema or shift of mid-line structures. No acute infarcti on changes seen. No cortical edema or sulcal effacement. Ventricles are normal. Mastoid air cells and visualized portions of the paranasal sinuses are clear. No acute bony findings. IMPRESSION: Negative non-contrast CT head examination. Exam is similar to the November 2018 comparison.
--- NOTE | 2020-02-08 12:34 | P.PN ---
Subjective Date of Service: 02/08/20 Chief Complaint: Seizure Multiple episodes of seizures today. No postictal state. Rapid response called multiple times due to seizure. Patient had a fall walking from the bathroom, due to seizure. He had a head trauma as he fell face forward. Seizures last approximately 1-3 min. No tongue biting, no bowel or urine incontinence. Review of Systems Neurological: Seizures Physical Examination - Vital Signs Temperature: 97.4 F Blood Pressure: 104/66 Pulse: 77 Respirations: 18 Pulse Ox (%): 100 - Physical Exam General: Alert, In no apparent distress HEENT: Atraumatic, PERRLA, EOMI Neck: Supple, JVD not distended Respiratory: Clear to auscultation bilaterally, Normal air movement Cardiovascular: Regular rate/rhythm, Normal S1 S2 Gastrointestinal: Normal bowel sounds, No tenderness Musculoskeletal: No tenderness Integumentary: No rashes Neurological: Normal speech, Normal tone, Normal affect Lymphatics: No axilla or inguinal lymphadenopathy - Studies Laboratory Tests 02/08/20 02/08/20 05:02 05:02 WBC 6.6 RBC 4.55 Hgb 13.4 L Hct 40.3 Plt Count 208 Sodium 142 Potassium 4.3 Chloride 110 H Carbon Dioxide 25 BUN 8 Creatinine 0.78 Glucose 95 Calcium 8.7 Magnesium 2.0 Microbiology Data (last 24 hrs): IMPRESSION: Negative non-contrast CT head examination. Exam is similar to the November 2018 comparison. Assessment & Plan Physician Review: Patient Assessed, Agree with Above Assessment and Plan Physician Review Additional Text: Mr. Zavala is 30-year-old male with a history of seizure disorder presented with seizure. #Seizure-multiple seizure episodes today. I have witnessed an episode, patient had his eyes rolled, rhythmic movements. Did not respond to his name norelicit pain with sternal rub during episode. Patient awoke to normal mental status, was oriented x3. No tongue biting, urine or bowel incontinence. Seizure lasted approximately 3 min. -EEG ordered however not available. Could not be done today. Nursing to notify neurologist. -patient on therapeutic dose of phenytoin. Also on Lamictal , topiramate and Keppra. -it is quite unclear if patient is actually having seizure versus pseudoseizures. -seizure precaution. -advised to call for assistance before out of bed.Repeat CT head after head trauma is unremarkable. -further recommendation pending Neurology evaluation. #Illicit drug use- UDS positive for marijuana & benzodiazepine #Noncompliance- barrier discussed. #Depression-continue effexor. DVT ppx- SCD Patient is full code. dispo - pending clinical improvement.
[2020-02-08] MEDS ORDERED: PHENYTOIN ER 100 MG CAP PO SCH (21:00)
[2020-02-08] MEDS ORDERED: DIVALPROEX DR 500MG TAB PO SCH (21:00)
--- NOTE | 2020-02-08 21:14 | CON ---
Reason For Consultation: Consultation called because of [id number] multiple seizures. History Of Present Illness: Mr. 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 He has had poor compliance with medications. He comes at [facility] and admitted on the with multiple wdfc-sd-vvwj seizures after being noncompliant , not taking medications for 2 to 3 weeks previously. Also, he was found to be positive for marijuan a and benzodiazepines. At [facility], his head CT scan and cervical spine CT scan did not i dentify any acute ischemic or hemorrhagic changes. The patient was loaded with fosphenytoin at 15 mg /kg in the emergency room and admitted to the floor. He was also given Lamictal 400 mg daily along w ith topiramate 100 mg twice daily and Ativan IV as needed to stop seizures. However, seizures contin ued at rate perhaps around 5 to 10 within the day and he was given Keppra now at 1000 mg twice daily. However, despite this, patient still has events. Nursing staff indicated some events appeared to b e nonepileptic with the patient recovering very quickly without a postictal phase; however, on some e vents, he appears to be going through full convulsive episodes, ended up actually with 1 of the event s, hitting his head on the floor. Nursing staff put a hand behind his head and he was very forcefull y hitting down to the floor, which appeared to be very painful and he did not seem to respond to noxi ous sternal rubs stimulation as might be expected. He is having a non-convulsive episode. His blood work revealed a normal complete blood count with differential and chemistries were essentially unrem arkable. Glucose was 95 to 111. Liver function studies were normal. Electrolytes completely normal . Urinalysis showed trace of blood and toxicology positive for benzodiazepines and marijuana. Past Medical History: Depression, chronic headaches, seizures, and history of status epilepticus. Allergies: NO KNOWN DRUG ALLERGIES. Medications: At home, diazepam 10 mg as needed for repeated seizures, fluoxetine 40 mg daily, gabape ntin 300 mg 3 times daily, lamotrigine 200 mg twice daily, sumatriptan 50 mg as needed, topiramate 50 mg 3 of those twice daily, and zolpidem 12.5 mg at night. Family History: Noncontributory. Social History: No recent tobacco or IV drug use, however, not clear that is reliable. Review of Systems: At this point, patient did receive an extra 5 mg/kg Dilantin along with Depakote and is asleep. Unab le to complete a review of systems at this point. Physical Examination: Vital Signs: Blood pressure 122/73, pulse 86, respiratory rate 18, temperature 98.4, oxygen saturati on 100% on room air. Weight 207 pounds, height 5 feet 11 inches, BMI 37.7. General: Mr. Zavala was sleeping in bed. He had received a 500 mg IV load of Depakote and also was on Keppra, Dilantin, Lamictal, and Ativan and he is asleep. Neurologic: Does not have any abnormal tone in the arms or legs. Reflexes symmetric. Face appears symmetric. Laboratory Studies: Reveal a Dilantin level of 19.9 earlier today. Assessment And Plan: Mr. Zavala is a 30-year-old patient with complex partial seizures with seconda ry generalization, who apparently is having multiple vqjp-fd-[id number] seizures, although some events may be pseudoseizures. The patient is unable to get an EEG as the breeding technician is not available. He has had 5 different antiepileptic medications, but still continues to have events. Some of them including e ventually nonepileptic episodes. However, given the need for monitoring to determine if some events are epileptic or not and the absence of the capability at this hospital, it is recommended that the p atient to be transferred to a facility that has the ability to do continuous EEG monitoring for a hig her level of care, so that true epileptic episodes can be distinguished from nonepileptic events and the patient may be if required intubated and treated with phenobarbital or pentobarbital to stop back -to-back seizures. At this point, he is hemodynamically stable. He has no evidence of infection. N o evidence of any brain involve lesions such as bleeding or tumors and would be at a low risk of comp lication with transfer, but would be better served in a facility that has capability to do EEG monito ring and appropriate treatment. At this point, I do recommend be transferred for higher level of car e and this was discussed with the patient's hospitalist and will be initiating a transfer. LB/MODL Voice ID: [id number] Report ID: [id number]
[2020-02-08 22:13] VITALS: BP 126/79; TEMP 97.2
[2020-02-08 23:37] VITALS: O2SAT 99
--- NOTE | 2020-02-09 09:08 | P.DS ---
Admission Date: 02/07/20 Discharge Date: 02/10/20 Disposition: TRANSFER TO [facility] Discharge Condition: SERIOUS Reason for Admission: Seizure Consultations: Neurologist Brief History of Present Illness: Admission diagnosis-breakthrough seizure due to noncompliance Discharge diagnosis- intractable seizure. Non compliance Hospital Course: Mr. Zavala is 30-year-old male with a history of seizure disorder who presented to the hospital with breakthrough seizure. Patient had been out of his medication for at least 1-2 weeks. He continued to have repeated to the seizure versus seizures in the hospital. CT brain was unremarkable. MRI of the brain could not be obtained as patient continued to have episodes during the attempt. Patient was evaluated by neurologist and maximized on anti epileptic drugs with limited response. EEG was unavailable and therefore patient was transferred to [facility] for continuous EEG in EMU. He remained hemodynamically stable for transfer. Vital Signs/Physical Exam: Temp Pulse Resp BP Pulse Ox 97.2 F 101 H 18 126/79 100 02/08/20 20:00 02/08/20 20:00 02/08/20 20:00 02/08/20 20:00 02/08/20 20:00 General: Alert, In no apparent distress HEENT: Atraumatic, PERRLA, EOMI Neck: Supple, JVD not distended Respiratory: Clear to auscultation bilaterally, Normal air movement Cardiovascular: Regular rate/rhythm, Normal S1 S2 Gastrointestinal: Normal bowel sounds, No tenderness Musculoskeletal: No tenderness Integumentary: No rashes Neurological: Normal speech, Normal tone, Normal affect Lymphatics: No axilla or inguinal lymphadenopathy Laboratory Data at Discharge: WBC 6.6 K/uL (4.3-10.9) 02/08/20 05:02 Hgb 13.4 g/dL (13.6-17.9) L 02/08/20 05:02 Hct 40.3 % (39.6-49.0) 02/08/20 05:02 Plt Count 208 K/uL (152-406) 02/08/20 05:02 Sodium 142 mmol/L (136-145) 02/08/20 05:02 Potassium 4.3 mmol/L (3.5-5.1) 02/08/20 05:02 BUN 8 mg/dL (7-18) 02/08/20 05:02 Creatinine 0.78 mg/dL (0.55-1.3) 02/08/20 05:02 Glucose 95 mg/dL (74-106) 02/08/20 05:02 Magnesium 2.0 mg/dL (1.8-2.4) 02/08/20 05:02 Total Bilirubin 0.3 mg/dL (0.2-1.0) 02/07/20 09:28 AST 26 U/L (15-37) 02/07/20 09:28 ALT 32 U/L (12-78) 02/07/20 09:28 Alkaline Phosphatase 101 U/L (45-117) 02/07/20 09:28 Home Medications: Gabapentin 300 mg PO TID PRN 11/24/18 Lamotrigine [Lamictal] 400 mg PO DAILY 11/24/18 Sumatriptan [Imitrex*] 50 mg PO Q1H PRN 11/24/18 Topiramate 3 tab PO BID 11/24/18 diazePAM [Diazepam] 10 mg PO BEDTIME PRN 11/24/18 PHENYTOIN ER Cap [Dilantin ER Cap*] 200 tab PO TID 02/07/20 Venlafaxine HCl [Venlafaxine HCl ER] 75 mg PO BID 02/07/20 Zolpidem Tartrate [Zolpidem Tartrate ER] 12.5 tab PO BEDTIME 02/07/20 lamoTRIgine [Lamotrigine] 200 tab PO DAILY 02/07/20
== END 2020-02-09 | disposition short-term general hospital (02) | DRG 101 ==
LOC: ER 07:02 → ERHOLD 11:11 → 2ND 13:03 → OBSVTOIN 15:19 → 2ND 20:16
PROVIDERS: ADMIT Hospitalist; ATTEND Hospitalist
DX: G40.919 Epilepsy, unspecified, intractable, without status epilepticus (principal); F32.9 Major depressive disorder, single episode, unspecified; Z88.8 Allergy status to other drugs, medicaments and biological substances; Z79.899 Other long term (current) drug therapy; Z90.49 Acquired absence of other specified parts of digestive tract; Z91.14 Patient's other noncompliance with medication regimen
CPT/HCPCS: 36415; 70450; 72125; 80048; 80076; 80185; 80307; 81003; 82550; 83605; 83735; 85025; 93005; 96361; 96365; 96375; 99285; G0378; J1165; J1953; J3360; J7030; Q2009

== ENCOUNTER 2020-06-26 09:35 | Inpatient (IN) | payer OTHER, SELFPAY ==
[2020-06-26] MEDS ORDERED: LORazepam 2 MG/ML VIAL ONE ×4 (10:06→23:56)
[2020-06-26] MEDS ORDERED: FOSPHENYTOIN PE 1,000 MG in NA CHLORIDE 0.9% 100 ML IV ONE (10:15)
[2020-06-26 10:26] LABS: Absolute Lymphocytes (CBC) 2.1 K/uL (0.7-4.9); Basophils % 0.6 % (0-1.3); Hematocrit 44.2 % (39.6-49.0); MPV 9.1 fL (7.6-11.3); RBC Red Blood Cell Count 4.81 M/uL (4.33-5.43)
[2020-06-26] MEDS ORDERED: DIAZEPAM 10 MG/2 ML INJ SYRINGE ONE (10:27)
--- NOTE | 2020-06-26 10:47 | RAD REPORT ---
EXAM DESCRIPTION: CT - Head Brain Wo Cont - 06/26/2020 10:27 am CLINICAL HISTORY: Seizure;Trauma COMPARISON: Head Brain Wo Cont dated 02/08/2020 TECHNIQUE: Axial 5 mm thick images of the head were obtained without IV contrast. All CT scans are performed using dose optimization technique as appropriate and may include automated exposure control or mA/KV adjustment according to patient size. FINDINGS: No intracranial hemorrhage, mass, edema or shift of mid-line structures. No acute infarcti on changes seen. No abnormal extra-axial fluid collections. Ventricles are normal. Mastoid air cells and visualized portions of the paranasal sinuses are clear. No acute bony findings. No significant changes from the comparison. IMPRESSION: Negative non-contrast CT head examination.
[2020-06-26 11:00] LABS: BUN Blood Urea Nitrogen 7 mg/dL (7-18); Bicarbonate 23 mmol/L (21-32); Glucose Level 124 mg/dL (74-106); Potassium 3.5 mmol/L (3.5-5.1); Sodium Level 141 mmol/L (136-145)
[2020-06-26 11:01] LABS: Phenytoin (Dilantin) Level < 0.4 ug/mL (10.0-20.0)
--- NOTE | 2020-06-26 11:15 | ER ---
Nurse's Notes [facility] Name: Alfie Zavala Age: 30 yrs Sex: Male : 1990 Arrival Date: 06/26/2020 Time: 09:36 Bed 5 Private MD: Diagnosis: Epilepsy and recurrent seizures;Epilepsy, unspecified, intractable, without status epilepticus Presentation: 06/26 09:50 Chief complaint: Patient states: had a seizure on Wednesday , hot his head, still having iw pain, was coming to the ER because he was still having a headache, while in lobby pt had an episode of seizure like behavior, was found to be lying on the ground, shaking all over his body, lasted approx 1-2 min, pt was able to get himself into a wheelchair , had no post-ictal period , takes dilantin but was out of meds for ten days. Coronavirus screen: At this time, the client does not indicate any symptoms associated with coronavirus-19. Ebola Screen: Patient negative for fever greater than or equal to 101.5 degrees Fahrenheit, and additional compatible Ebola Virus Disease symptoms Patient denies exposure to infectious person. Patient denies travel to an Ebola-affected area in the 21 days before illness onset. No symptoms or risks identified at this time. Initial Sepsis Screen: Does the patient meet any 2 criteria? No. Patient's initial sepsis screen is negative. Does the patient have a suspected source of infection? No. Patient's initial sepsis screen is negative. Risk Assessment: Do you want to hurt yourself or someone else? Patient reports no desire to harm self or others. 09:50 Method Of Arrival: Wheelchair iw 09:50 Acuity: KEN 2 iw 10:00 Onset of symptoms is unknown. Care prior to arrival: None. Transition of care: patient kevin was not received from another setting of care. Historical: - Allergies: 11:05 No Known Allergies; jl7 - Home Meds: 11:05 diazepam 10 mg Oral tab 1 tab daily prn for Acute Repetitive Seizures, Anxiety jl7 [Active]; fluoxetine 40 mg Oral cap 1 cap once daily [Active]; gabapentin 300 mg Oral cap 1 cap TID prn [Active]; lamotrigine 200 mg Oral tab 2 tabs once daily [Active]; sumatriptan oral 50 mg as needed [Active]; topiramate 50 mg Oral CSpX 3 caps twice a day [Active]; zolpidem 12.5 mg Oral TbMP 1 tab qhs prn [Active]; - PMHx: 11:05 Depression; Headaches; Seizures; status epilepticus; jl7 - Immunization history:: Adult Immunizations unknown. - Social history:: Smoking status: Patient denies any tobacco usage or history of. Patient uses street drugs, marijuana. Screenin:30 Abuse screen: Denies threats or abuse. Denies injuries from another. Nutritional jl7 screening: No deficits noted. Tuberculosis screening: No symptoms or risk factors identified. Fall Risk IV access (20 points). Assessment: 09:50 General: Appears well developed, Behavior is calm, cooperative, appropriate for age. jl7 Pain: Denies pain. Cardiovascular: Patient's skin is warm and dry. Rhythm is sinus tachycardia. Respiratory: Airway is patent Respiratory effort is even, unlabored, Respiratory pattern is regular, symmetrical. GI: No signs and/or symptoms were reported involving the gastrointestinal system. : No signs and/or symptoms were reported regarding the genitourinary system. EENT: No signs and/or symptoms were reported regarding the EENT system. Derm: Skin is pink, warm \T\ dry. Musculoskeletal: No signs and/or symptoms reported regarding the musculoskeletal system. 09:51 Neuro: Seizure activity noted at this time. Seizure lasted approximately 2 minutes. jl7 10:01 Neuro: Seizure activity Seizure lasted approximately 1 minutes. jl7 10:08 Neuro: Seizure activity noted at this time. Seizure lasted approximately 2 minutes. jl7 10:19 Neuro: Seizure activity noted at this time. Seizure lasted approximately 1 minutes. jl7 10:28 Neuro: Seizure activity noted at this time. Seizure lasted approximately 2 minutes. jl7 10:41 Neuro: Seizure activity noted at this time. Seizure lasted approximately 1 minutes. jl7 10:57 Neuro: Seizure activity Seizure lasted approximately 1 minutes. jl7 11:03 Neuro: Seizure activity noted at this time. Seizure lasted approximately .5 minutes. jl7 11:07 Neuro: Seizure activity noted at this time. Seizure lasted approximately 1 minutes. jl7 11:31 Neuro: Seizure activity noted at this time. Seizure lasted approximately 1 minutes. jl7 11:44 Neuro: Seizure activity noted at this time. Seizure lasted approximately 1 minutes. jl7 11:51 Neuro: Seizure activity Seizure lasted approximately 1 minutes. jl7 11:56 Neuro: Seizure activity noted at this time. Seizure lasted approximately 1 minutes. jl7 12:03 Neuro: Seizure activity noted at this time. Seizure lasted approximately .5 minutes. jl7 12:16 Neuro: Seizure activity noted at this time. Seizure lasted approximately 1 minutes. jl7 12:45 Reassessment: Pt laying in bed, snoring respiration noted, Pulse ox at 93%, NC placed jl7 at this time. Vital Signs: 10:00 BP 147 / 92; Pulse 123; Resp 25; Temp 98.7; Pulse Ox 99% ; jl7 11:00 BP 117 / 69; Pulse 129; Resp 20; Pulse Ox 99% ; jl7 11:06 Weight 117.93 kg; jl7 11:30 BP 107 / 63; Pulse 124; Resp 21; Pulse Ox 98% ; jl7 12:00 BP 102 / 72; Pulse 113; Resp 28; Pulse Ox 98% ; jl7 12:30 BP 110 / 69; Pulse 114; Resp 21; Pulse Ox 99% ; jl7 13:00 BP 103 / 58; Pulse 102; Resp 20; Pulse Ox 94% ; jl7 13:41 BP 117 / 76; Pulse 92; Resp 19; Pulse Ox 98% ; jl7 ED Course: 09:36 Patient arrived in ED. as 09:43 Carlita Zuniga FNP-C is [facility]. kb 09:43 Juan Cyr MD is Attending Physician. kb 09:46 Patient has correct armband on for positive identification. Placed in gown. Bed in low jl7 position. Call light in reach. Side rails up X2. Seizure precautions initiated. electronic device monitor on. Pulse ox on. NIBP on. Warm blanket given. 10:00 Triage completed. iw 10:00 Inserted saline lock: 20 gauge in left antecubital area, using aseptic technique. Blood jl7 collected. 10:27 CT Head Brain wo Cont In Process Unspecified. EDMS 10:30 Initial lab(s) drawn, by me, sent to lab. Inserted saline lock: 22 gauge in right jl7 wrist, using aseptic technique. 10:36 María Gregory RN is Primary Nurse. jl7 11:06 Arm band placed on right wrist. jl7 11:12 Milton Gómez DO is Hospitalizing Provider. kb 11:26 Kay Garza MD is Hospitalizing Provider. kb 13:00 Inserted saline lock: 22 gauge in left hand, using aseptic technique. jl7 14:09 No provider procedures requiring assistance completed. Patient admitted, IV remains in jl7 place. intact, No redness/swelling at site. Administered Medications: 09:57 Drug: Ativan 2 mg Route: IVP; Site: left antecubital; jl7 10:00 Follow up: Response: No adverse reaction; No change in condition jl7 10:00 CANCELLED (Physician Discretion): Fosphenytoin 1 grams IVPB once; (mix in 50 to 100mL kb NS) 10:00 Drug: Ativan 2 mg Route: IVP; Site: left antecubital; jl7 10:15 Follow up: Response: No adverse reaction jl7 10:08 Drug: Valium 5 mg Route: IVP; Site: left antecubital; jl7 10:15 Follow up: Response: No adverse reaction; No change in condition jl7 10:15 Drug: CEREbyx 1 grams Route: IVPB; Site: left antecubital; jl7 10:30 Follow up: Response: No adverse reaction; IV Status: Completed infusion jl7 10:20 Drug: Valium 5 mg Route: IVP; Site: left antecubital; jl7 10:25 Follow up: Response: No adverse reaction jl7 10:45 Drug: Ativan 2 mg Route: IVP; Site: right wrist; jl7 11:00 Follow up: Response: No adverse reaction jl7 11:43 Drug: Keppra 1000 mg Route: IV; Rate: calculated rate; Site: right wrist; jl7 11:58 Follow up: Response: No adverse reaction; IV Status: Completed infusion jl7 12:00 Drug: Fosphenytoin 180 mg Route: IVPB; Site: right wrist; jl7 12:15 Follow up: Response: No adverse reaction; IV Status: Completed infusion jl7 14:00 Drug: NS 0.9% 1000 ml Route: IV; Rate: 1000 ml; Site: left hand; jl7 Outcome: 11:14 Decision to Hospitalize by Provider. kb 14:53 Admitted to Tele accompanied by tech, via stretcher, room 228, with chart, Report jl7 called to [facility] He 14:53 Condition: stable 14:53 Discharge instructions given to patient, Instructed on the need for admit, Demonstrated understanding of instructions. 14:58 Patient left the ED. iw Signatures: Dispatcher [employer] Carlita Peña, DISH MAKER-C LÁZARO-Susy Oglesby Irene, RN RN María Pagan RN RN jl7 Corrections: (The following items were deleted from the chart) 10:04 09:50 Acuity: KEN 3 iw iw
--- NOTE | 2020-06-26 11:15 | EDPHYS ---
Physician Documentation [facility] Name: Alfie Zavala Age: 30 yrs Sex: Male : 1990 Arrival Date: 06/26/2020 Time: 09:36 Bed 5 Private MD: ED Physician Juan Cyr HPI: 06/26 11:34 This 30 yrs old Male presents to ER via Wheelchair with complaints of Seizure. kb 11:34 Pt presented for headache since hitting head during a seizure on Wednesday. Pt had another kb seizure in the lobby. Pt was able to stand up and get into wheelchair immediately following seizure. States he hasn't been taking dilantin because he cannot afford it, but that is the medicine that he needs so he doesn't have seizures. . 12:04 The patient presents after having a single isolated seizure. Character of seizure(s): kb Loss of consciousness: the patient experienced loss of consciousness, Motor activity: generalized, Incontinence: none, Apnea: the patient did not experience apnea, Circulation: the patient did not experience evidence of pulse disturbance. Seizure onset: 2 days ago, [facility] Context: the seizure(s) was witnessed, ER staff. Seizure Hx: Original onset: 10 year(s) ago, Cause: head injury. Associated injury: Head/face: left side of forehead, abrasion. Current symptoms: Currently, the patient is not experiencing any symptoms, the patient feels back to baseline, no decreased level of consciousness, no confusion, no dysphasia, no paralysis, no visual changes, headache, that is mild. The patient has experienced similar episodes in the past. The patient has not recently seen a physician. Historical: - Allergies: 11:05 No Known Allergies; jl7 - Home Meds: 11:05 diazepam 10 mg Oral tab 1 tab daily prn for Acute Repetitive Seizures, Anxiety jl7 [Active]; fluoxetine 40 mg Oral cap 1 cap once daily [Active]; gabapentin 300 mg Oral cap 1 cap TID prn [Active]; lamotrigine 200 mg Oral tab 2 tabs once daily [Active]; sumatriptan oral 50 mg as needed [Active]; topiramate 50 mg Oral CSpX 3 caps twice a day [Active]; zolpidem 12.5 mg Oral TbMP 1 tab qhs prn [Active]; - PMHx: 11:05 Depression; Headaches; Seizures; status epilepticus; jl7 - Immunization history:: Adult Immunizations unknown. - Social history:: Smoking status: Patient denies any tobacco usage or history of. Patient uses street drugs, marijuana. ROS: 11:23 Constitutional: Negative for fever, chills, and weight loss, Eyes: Negative for injury, kb pain, redness, and discharge, ENT: Negative for injury, pain, and discharge, Neck: Negative for injury, pain, and swelling, Cardiovascular: Negative for chest pain, palpitations, and edema, Respiratory: Negative for shortness of breath, cough, wheezing, and pleuritic chest pain, Abdomen/GI: Negative for abdominal pain, nausea, vomiting, diarrhea, and constipation, Back: Negative for injury and pain, MS/Extremity: Negative for injury and deformity. 11:23 Skin: Positive for abrasion(s), of the left side of forehead. 11:26 Neuro: Positive for headache, seizure activity. kb Exam: 11:33 Constitutional: This is a well developed, well nourished patient who is awake, alert, kb and in no acute distress. Eyes: Pupils equal round and reactive to light, extra-ocular motions intact. Lids and lashes normal. Conjunctiva and sclera are non-icteric and not injected. Cornea within normal limits. Periorbital areas with no swelling, redness, or edema. ENT: Nares patent. No nasal discharge, no septal abnormalities noted. Tympanic membranes are normal and external auditory canals are clear. Oropharynx with no redness, swelling, or masses, exudates, or evidence of obstruction, uvula midline. Mucous membranes moist. Neck: Trachea midline, no thyromegaly or masses palpated, and no cervical lymphadenopathy. Supple, full range of motion without nuchal rigidity, or vertebral point tenderness. No Meningismus. Chest/axilla: Normal chest wall appearance and motion. Nontender with no deformity. No lesions are appreciated. Cardiovascular: Regular rate and rhythm with a normal S1 and S2. No gallops, murmurs, or rubs. Normal PMI, no JVD. No pulse deficits. Respiratory: Lungs have equal breath sounds bilaterally, clear to auscultation and percussion. No rales, rhonchi or wheezes noted. No increased work of breathing, no retractions or nasal flaring. Abdomen/GI: Soft, non-tender, with normal bowel sounds. No distension or tympany. No guarding or rebound. No evidence of tenderness throughout. MS/ Extremity: Pulses equal, no cyanosis. Neurovascular intact. Full, normal range of motion. Neuro: Awake and alert, GCS 15, oriented to person, place, time, and situation. Cranial nerves II-XII grossly intact. Motor strength 5/5 in all extremities. Sensory grossly intact. Cerebellar exam normal. Normal gait. 11:33 Head/face: Noted is no obvious of injury or deformity except abrasion(s), that are mild, of the left side of forehead. Vital Signs: 10:00 BP 147 / 92; Pulse 123; Resp 25; Temp 98.7; Pulse Ox 99% ; jl7 11:00 BP 117 / 69; Pulse 129; Resp 20; Pulse Ox 99% ; jl7 11:06 Weight 117.93 kg; jl7 11:30 BP 107 / 63; Pulse 124; Resp 21; Pulse Ox 98% ; jl7 12:00 BP 102 / 72; Pulse 113; Resp 28; Pulse Ox 98% ; jl7 12:30 BP 110 / 69; Pulse 114; Resp 21; Pulse Ox 99% ; jl7 13:00 BP 103 / 58; Pulse 102; Resp 20; Pulse Ox 94% ; jl7 13:41 BP 117 / 76; Pulse 92; Resp 19; Pulse Ox 98% ; jl7 MDM: 09:44 Patient medically screened. 11:07 Data reviewed: vital signs, nurses notes. Data interpreted: Pulse oximetry: on room air kb is 99 %. Interpretation: normal. Physician consultation: Luther Christensen MD was contacted at 11:00, regarding consult, patient's condition, and will see patient in inpatient room, wants full loading dose of fosphenytoin give (10mg/kg). 11:07 Physician consultation: Kay Garza MD was called at 11:08, regarding admission, to the ICU, patient's condition, and will see patient in ED, shortly. 11:11 Counseling: I had a detailed discussion with the patient and/or guardian regarding: the historical points, exam findings, and any diagnostic results supporting the discharge/admit diagnosis, lab results, radiology results, the need for further work-up and treatment in the hospital. 11:26 ED course: Pt has had multiple brief seizures while in ER. Pt wakes up from them and is kb able to answer questions immediately, no postictal state afterwards. Pt maintains oxygen saturation and respirations during seizure activity. No incontinence . 06/26 09:47 Order name: CBC with Diff; Complete Time: 10:27 kb 06/26 09:47 Order name: Basic Metabolic Panel; Complete Time: 11:02 kb 06/26 09:47 Order name: Dilantin; Complete Time: 11:02 kb 06/26 11:22 Order name: CBC with Automated Diff EDMS 06/26 11:22 Order name: CBC with Automated Diff EDMS 06/26 11:22 Order name: Comprehensive Metabolic Panel EDMS 06/26 09:47 Order name: CT Head Brain wo Cont; Complete Time: 10:50 kb 06/26 11:22 Order name: Comprehensive Metabolic Panel EDMS 06/26 11:23 Order name: EEG Request EDMS 06/26 09:47 Order name: IV Start; Complete Time: 13:44 kb 06/26 11:22 Order name: CONS Pharmacy Consult EDMS 06/26 11:22 Order name: CONS Physician Consult EDMS 06/26 11:22 Order name: Regular EDMS Administered Medications: 09:57 Drug: Ativan 2 mg Route: IVP; Site: left antecubital; jl7 10:00 Follow up: Response: No adverse reaction; No change in condition jl7 10:00 CANCELLED (Physician Discretion): Fosphenytoin 1 grams IVPB once; (mix in 50 to 100mL kb NS) 10:00 Drug: Ativan 2 mg Route: IVP; Site: left antecubital; jl7 10:15 Follow up: Response: No adverse reaction jl7 10:08 Drug: Valium 5 mg Route: IVP; Site: left antecubital; jl7 10:15 Follow up: Response: No adverse reaction; No change in condition jl7 10:15 Drug: CEREbyx 1 grams Route: IVPB; Site: left antecubital; jl7 10:30 Follow up: Response: No adverse reaction; IV Status: Completed infusion jl7 10:20 Drug: Valium 5 mg Route: IVP; Site: left antecubital; jl7 10:25 Follow up: Response: No adverse reaction jl7 10:45 Drug: Ativan 2 mg Route: IVP; Site: right wrist; jl7 11:00 Follow up: Response: No adverse reaction jl7 11:43 Drug: Keppra 1000 mg Route: IV; Rate: calculated rate; Site: right wrist; jl7 11:58 Follow up: Response: No adverse reaction; IV Status: Completed infusion jl7 12:00 Drug: Fosphenytoin 180 mg Route: IVPB; Site: right wrist; jl7 12:15 Follow up: Response: No adverse reaction; IV Status: Completed infusion jl7 14:00 Drug: NS 0.9% 1000 ml Route: IV; Rate: 1000 ml; Site: left hand; jl7 Disposition: 16:34 Co-signature as Attending Physician, Juan Cyr MD I agree with the assessment and kdr plan of care. Disposition: 06/26/20 11:14 Hospitalization ordered by Kay Garza for Inpatient Admission. Preliminary diagnosis are Epilepsy and recurrent seizures, Epilepsy, unspecified, intractable, without status epilepticus. - Bed requested for Telemetry/MedSurg (Inpatient). - Status is Inpatient Admission. iw - Condition is Stable. - Problem is an acute exacerbation. - Symptoms are unchanged. Signatures: Dispatcher [employer] EDTN Carlita Zuniga, PILY SESAY-Tila Javier RN RN kl Rittger, Kevin, MD MD kdr Williams, Irene, RN RN iw Leal, Jahala, RN RN jl7 Corrections: (The following items were deleted from the chart) 10:00 09:59 Fosphenytoin 1 grams IVPB once; (mix in 50 to 100mL NS) ordered. kb kb 11:26 11:07 Physician consultation: Milton Gómez DO was called at 11:08, regarding kb admission, to the ICU, patient's condition, and will see patient in ED, shortly, kb 11:26 11:14 Hospitalization Ordered by Milton Gómez DO for Inpatient Admission. Preliminary kb diagnosis is Epilepsy and recurrent seizures; Epilepsy, unspecified, intractable, without status epilepticus. Bed requested for Intensive Care Unit. Status is Inpatient Admission. Condition is Stable. Problem is an acute exacerbation. Symptoms are unchanged. kb 11:33 11:07 Physician consultation: Luther Christensen MD was contacted at 11:00, regarding kb consult, patient's condition, and will see patient in inpatient room, kb 12:06 11:26 ED course: Pt has had multiple seizures while in ER. Pt wakes up from them and is kb able to answer questions immediately, no postictal state afterwards. Pt maintains oxygen saturation and respirations during seizure activity. No incontinence . kb 12:55 11:26 06/26/2020 11:14 Hospitalization Ordered by Kay Garza MD for Inpatient kb Admission. Preliminary diagnosis is Epilepsy and recurrent seizures; Epilepsy, unspecified, intractable, without status epilepticus. Bed requested for Intensive Care Unit. Status is Inpatient Admission. Condition is Stable. Problem is an acute exacerbation. Symptoms are unchanged. kb 13:12 12:55 06/26/2020 11:14 Hospitalization Ordered by Kay Garza MD for Inpatient kl Admission. Preliminary diagnosis is Epilepsy and recurrent seizures; Epilepsy, unspecified, intractable, without status epilepticus. Bed requested for Telemetry/MedSurg (Inpatient). Status is Inpatient Admission. Condition is Stable. Problem is an acute exacerbation. Symptoms are unchanged. 14:58 13:12 06/26/2020 11:14 Hospitalization Ordered by Kay Garza MD for Inpatient iw Admission. Preliminary diagnosis is Epilepsy and recurrent seizures; Epilepsy, unspecified, intractable, without status epilepticus. Bed requested for Telemetry/MedSurg (Inpatient). Status is Inpatient Admission. Condition is Stable. Problem is an acute exacerbation. Symptoms are unchanged.
[2020-06-26] MEDS ORDERED: ACETAMINOPHEN 500 MG TAB PO PRN (11:19)
[2020-06-26] MEDS ORDERED: ONDANSETRON 4 MG/2 ML VIAL IV PRN (11:19)
[2020-06-26] MEDS ORDERED: levETIRAcetam 1,000 MG in NA CHLORIDE 0.9% 100 ML IV ONE (11:30)
[2020-06-26] MEDS ORDERED: NA CHLORIDE 0.9% IV ONE (11:45)
[2020-06-26] MEDS ORDERED: FOSPHENYTOIN PE IV ONE (11:45)
--- OUTSIDE RECORDS SUMMARY | 2020-06-26 13:03 | XMS REPORT | Clinical Summary ---
:1990 Author Organization [facility] Address [address] [place] [address] Care Team Providers Name Role Phone Andrew Buckner Primary Care Provider Allergies Active Allergy Reactions Severity Noted Date Comments Lorazepam Hives Medium 08/10/2018 Medications Medication Sig Dispensed Refills Start Date End Date Status lamoTRIgine Take 200 mg by 0 Act senthil (LAMICTAL) 200 MG mouth 2 (two) tablet times daily. SUMAtriptan (IMITREX) Take 50 mg by 0 Active 50 MG tablet mouth once as needed for Headaches. topiramate (TOPAMAX) Take 50 mg by 0 Active 50 MG tablet mouth 2 (two) times daily. mirtazapine (REMERON) Take 1 tablet (15 30 tablet 0 08/12/2018 Active 15 MG tablet mg total) by mouth nightly. lidocaine (LIDODERM) Place 1 patch onto 30 patch 0 08/12/2018 Active 5 % patch the skin daily Remove & Discard patch within 12 hours or as directed by MD. For back pain. diazePAM (VALIUM) 5 Take 2 tablets (10 10 tablet 0 08/12/2018 Active MG tablet mg total) by mouth every 8 (eight) hours as needed for Anxiety. Max Daily Amount: 30 mg FLUoxetine (PROZAC) Take 40 mg by 0 Active 40 MG capsule mouth daily. phenytoin (DILANTIN) Take 200 mg by 0 Active 100 MG ER capsule mouth 3 (three) times daily. gabapentin Take 1 capsule 30 capsule 0 09/13/2018 Ac tive (NEURONTIN) 300 MG (300 mg total) by capsule mouth 3 (three) times daily as needed (anxiety). Active Problems Problem Noted Date Status epilepticus 09/10/2018 Acute respiratory failure with hypoxia 09/10/2018 Essential hypertension 09/10/2018 Acute encephalopathy 09/10/2018 Obesity 08/13/2018 Severe episode of recurrent major depressive disorder 08/11/2018 Suicide attempt 08/11/2018 Seizure 08/10/2018 Immunizations Name Dates Previously Given Next Due [...] travel history available. Last Filed Vital Signs Not on file Plan of Treatment Not on file Results Not on fileafter 06/26/2019 Insurance Payer Benefit Plan / Subscriber ID Type Phone Address Group BLUE CROSS/BLUE [employer]BS PPO POS EPO xxxxxxxxxxxx PPO [phone] [address] [place] [address] Advance Directives For more information, please contact:[address] [phone] Code Status Date Activated Date Inactivated Comments Full Code 09/10/2018 7:22 AM This code status was determined by: Patient Full Code 08/10/2018 1:35 AM 08/13/2018 8:26 PM This code status was determined by: Patient
--- OUTSIDE RECORDS SUMMARY | 2020-06-26 13:04 | XMS REPORT | Continuity of Care Document ---
:1990 Author Organization [facility] t Address [address] [place] [address] Care Team Providers Name Role Phone Andrew [place] Primary Care Physician SHELBIE AUGUST Attending Clinician Unavail able FRANCISCA BRUCE Attending Clinician Unavailable SHELBIE AUGUST Admitting Clinician Unavail able FRANCISCA BRUCE Admitting Clinician Unavailable Problems Condition Condition Condition Status Onset Resolution Last Treating Co mments Source Name Details Category Date Date Treatment Clinician Date Status Status Disease Active 2017-[address] [facility] epilepticu epilepticu 0-27 [facility] - s s 00:00: [facility] 00 Center Acute Acute Disease Active 2017-[address] [facility] respirator respirator 0-27 Sherrill kes - y failure y failure 00:00: [facility] with with 00 Center hypoxia hypoxia Essential Essential Disease Active 2017-[address] [facility] hypertensi hypertensi 0-27 Sherrill kes - on on 00:00: Medical 00 Center Acute Acute Disease Active 2017-[address] [facility] encephalop encephalop 0-27 Sherrill kes - athy athy 00:00: Medical 00 Center Obesity Obesity Disease Active [facility] 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 Sherrill kes - 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:00: [facility] major major 00 Center depressive depressive disorder disorder Suicide Suicide Disease Active [facility] attempt attempt 08-11 [facility]: [facility] 00 [place] Seizure Seizure Disease Active [facility] 08[facility]10 [facility] 00:[facility]: Medical 00 [place] Allergies, Adverse Reactions, Alerts Allergy Allergy Status Severity Reaction(s) Onset Inactive Treating Comm ents Source Name Type Date Date Clinician Lorazepa Drug Active Hives [facility] m Allergy 08-10 [facility] 00:[facility]: Medical 00 [place] Social History Social Habit Start Date Stop Date Quantity Comments Source Sex Assigned At [facility] Smoking Status Start Date Stop Date Source Never smoker [facility] edical [place] Medications Ordered Filled Start Stop Current Ordering Indication Dosage Frequency Signature Comments Components Source Medication Medication Date Date Medication? Clinician (SIG) Name Name gabapentin 2017-11 Yes 300mg Take [address] [facility] (NEURONTIN) 0-30 capsule [facility] - 300 MG 00:00: (300 mg Medical capsule 00 total) by Center mouth 3 (three) times daily as needed (anxiety). FLUoxetine 2017-11 Yes 40mg QD Take [address] (PROZAC) 40 0-28 by mouth [facility] - MG capsule 16:33: daily. Medic al 30 [place] phenytoin 2017-11 Yes 200mg [id number] Take [address] [facility] (DILANTIN) 0-28 [id number] mg by Sherrill kes - 100 MG ER 16:33: 3D mouth 3 Medic al capsule 30 (three) Center times daily. mirtazapine Yes 15mg QD Take [address] [facility] (REMERON) - tablet (15 [facility] - 15 MG 00:00: mg total) Medical tablet 00 by mouth Center nightly. lidocaine Yes 1{patch Q24H Place [address] (LIDODERM) 08-12 } patch onto Ana es - 5 % patch 00:00: the skin Medi tyrone 00 daily Center Remove & Discard patch within 12 hours or as directed by MD. For back pain. diazePAM Yes 10mg Take [address] [facility] (VALIUM) 5 - tablets [facility] - MG tablet 00:00: (10 mg Medica l 00 total) by Center mouth every 8 (eight) hours as needed for Anxiety. Max Daily Amount: 30 mg topiramate Yes 50mg Q.5D Take [address] (TOPAMAX) 9-27 by mouth 2 [facility] - 50 MG 15:08: (two) Medical tablet 00 times Center daily. lamoTRIgine 2018-0 Yes 200mg Q.5D Take [address] (LAMICTAL) 9-26 mg by [facility] - 200 MG 08:51: mouth 2 Medical tablet 44 (two) Center times daily. SUMAtriptan 2018-0 Yes 50mg Take [address] [facility] (IMITREX) 9-26 by mouth [facility] - 50 MG 08:51: once as Medical tablet 44 needed for Center Headaches. Immunizations Ordered Immunization Filled Immunization Date Status Commen ts Source Name Name Influenza Four-QIV 2018-09-[address] [facility] - Non-PF 5+ YR 00:00:00 Medical Cent er Procedures This patient has no known procedures. Results Test Description Test Time Test Comments Results Result Comments Source BLOOD CULTURE 2018-09-15 18:00:00 Test Item Value Reference Range Interpretation Comme nts CULTURE (BEAKER) (test code = 1095) No growth in 5 days BLOOD [id number] 18:00:00 Test Item Value Reference Range Interpretation Comments CULTURE (BEAKER) (test No growth in 5 days code = 1095) SPUTUM CULTURE + GRAM [id number] 14:21:00 Test Item Value Reference Range Interpretation Comments CULTURE (BEAKER) 4+ Normal respiratory (test code = 1095) beatrice present GRAM STAIN RESULT 1+ gram positive rods (BEAKER) (test code = 1123) GRAM STAIN RESULT 1+ gram negative cocci (BEAKER) (test code = 40180) GRAM STAIN RESULT 2+ gram positive cocci (BEAKER) (test code = in chains 06496) GRAM STAIN RESULT 1+ gram positive cocci (BEAKER) (test code = in clusters 201328) RAD, CHEST, 1 VIEW, NON [id number] 07:27:00Reason for exam:->post intubationShould this be performed [...] Signed: Sandra Shultz MDReport Verified Date/Time: 09/13/2018 07:27:51 Reading Location: [facility] Radiology Reading Room PHOSPHORUS 2018-09-13 04:44:00 Test Item Value Reference Range Interpretation Comments PHOSPHORUS (BEAKER) (test code = 2.9 mg/dL 2.3-4.7 604) Check Serum Phosphorus level 4 hours after IV phosphorus replacement or 8 hours after PO replacementcompleted.[id number] 04:44:00 Test Item Value Reference Range Interpretation Comments MAGNESIUM (BEAKER) (test code = 2.2 mg/dL 1.6-2.6 627) Check Serum Phosphorus level 4 hours after IV phosphorus replacement or 8 hours after PO replacementcompleted.BASIC METABOLIC [id number] 04:44:00 Test Item Value Reference Range Interpretation Comments SODIUM (BEAKER) 142 meq/L 136-145 (test code = 381) POTASSIUM (BEAKER) 3.6 meq/L 3.5-5.1 (test code = 379) CHLORIDE (BEAKER) 114 meq/L 98-107 H (test code = 382) CO2 (BEAKER) (test 22 meq/L 22-29 code = 355) BLOOD UREA NITROGEN 8 mg/dL 7-21 (BEAKER) (test code = 354) CREATININE (BEAKER) 0.68 mg/dL 0.57-1.25 (test code = 358) GLUCOSE RANDOM 109 mg/dL 70-105 H (BEAKER) (test code = 652) CALCIUM (BEAKER) 8.4 mg/dL 8.4-10.2 (test code = 697) EGFR (BEAKER) (test 137 mL/min/1.73 ESTIM ATED GFR IS code = 1092) sq m NOT ACCURATE CREATININE CLEARANCE IN PREDICTING GLOMERULAR FILTRATION RATE . ESTIMATED GFR I S NOT APPLICABLE FOR DIALYSIS PATIEN TS. Check Serum Phosphorus level 4 hours after IV phosphorus replacement or 8 hours after PO replacementcompleted.CBC W/PLT COUNT & AUTO [id number] 04:19:00 Test Item Value Reference Range Interpretation Comments WHITE BLOOD CELL COUNT (BEAKER) 6.1 K/ L 3.5-10.5 (test code = 775) RED BLOOD CELL COUNT (BEAKER) 3.85 M/ L 4.63-6.08 L (test code = 761) HEMOGLOBIN (BEAKER) (test code = 11.4 GM/DL 13.7-17.5 L 410) HEMATOCRIT (BEAKER) (test code = 35.1 % 40.1-51.0 L 411) MEAN CORPUSCULAR VOLUME (BEAKER) 91.2 fL 79.0-92.2 (test code = 753) MEAN CORPUSCULAR HEMOGLOBIN 29.6 pg 25.7-32.2 (BEAKER) (test code = 751) MEAN CORPUSCULAR HEMOGLOBIN CONC 32.5 GM/DL 32.3-36.5 (BEAKER) (test code = 752) RED CELL DISTRIBUTION WIDTH 13.7 % 11.6-14.4 (BEAKER) (test code = 412) PLATELET COUNT (BEAKER) (test 162 K/CU MM 150-450 code = 756) MEAN PLATELET VOLUME (BEAKER) 10.4 fL 9.4-12.4 (test code = 754) NUCLEATED RED BLOOD CELLS 0 /100 WBC 0-0 (BEAKER) (test code = 413) NEUTROPHILS RELATIVE PERCENT 58 % (BEAKER) (test code = 429) LYMPHOCYTES RELATIVE PERCENT 32 % (BEAKER) (test code = 430) MONOCYTES RELATIVE PERCENT 9 % (BEAKER) (test code = 431) EOSINOPHILS RELATIVE PERCENT 1 % (BEAKER) (test code = 432) BASOPHILS RELATIVE PERCENT 0 % (BEAKER) (test code = 437) NEUTROPHILS ABSOLUTE COUNT 3.54 K/ L 1.78-5.38 (BEAKER) (test code = 670) LYMPHOCYTES ABSOLUTE COUNT 1.93 K/ L 1.32-3.57 (BEAKER) (test code = 414) MONOCYTES ABSOLUTE COUNT (BEAKER) 0.52 K/ L 0.30-0.82 (test code = 415) EOSINOPHILS ABSOLUTE COUNT 0.07 K/ L 0.04-0.54 (BEAKER) (test code = 416) BASOPHILS ABSOLUTE COUNT (BEAKER) 0.02 K/ L 0.01-0.08 (test code = 417) IMMATURE GRANULOCYTES-RELATIVE 0 % 0-1 PERCENT (BEAKER) (test code = 2801) [id number] 18:41:00 Test Item Value Reference Range Interpretation Comments POTASSIUM (BEKIMBERLY) (test code = 3.9 meq/L 3.5-5.1 379) Check Serum Potassium level 2 hours after oral potassium replacement completed or 30 min after intravenous potassium replacement.[id number] 18:41:00 Test Item Value Reference Range Interpretation Comments MAGNESIUM (MAXIMINO) (test code = 2.9 mg/dL 1.6-2.6 H 627) Check Serum Potassium level 2 hours after oral potassium replacement completed or 30 min after intravenous potassium replacement.EEG MONITORING WITH VIDEO RECORDING EACH 24 [id number] 14:34:00billing for 09/12 AMDATE OF REPORT: 09/12/2018 ACC: [id number] Start time: 09/11 at 0920 AM Stop time: 09/12 at 11:11 AM ICD-10: R56.9 CPT Code: 36118 HISTORY: 28 year old male p/w increased [...] Fellow Davis Cintron MD, PhD Attending Neurophysiologist [facility] [id number] 12:15:00 Test Item Value Reference Range Interpretation Comments MAGNESIUM (BEAKER) (test code = 1.9 mg/dL 1.6-2.6 627) Check Serum Phosphorus level 4 hours after IV phosphorus replacement or 8 hours after PO replacementcompleted.Check Serum Potassium level 2 hours after oral potassium replacement completed or 30 min after intravenous potassium replacement.[id number] 12:15:00 Test Item Value Reference Range Interpretation Comments PHOSPHORUS (BEAKER) (test code = 2.0 mg/dL 2.3-4.7 L 604) Check Serum Phosphorus level 4 hours after IV phosphorus replacement or 8 hours after PO replacementcompleted.Check Serum Potassium level 2 hours after oral potassium replacement completed or 30 min after intravenous potassium replacement.[id number] 12:14:00 Test Item Value Reference Range Interpretation Comments POTASSIUM (BEAKER) (test code = 3.6 meq/L 3.5-5.1 379) Check Serum Phosphorus level 4 hours after IV phosphorus replacement or 8 hours after PO replacementcompleted.Check Serum Potassium level 2 hours after oral potassium replacement completed or 30 min after intravenous potassium replacement.CALCIUM, [id number] 11:49:00 Test Item Value Reference Range Interpretation Comments CALCIUM IONIZED (BEAKER) (test 1.09 mmol/L 1.12-1.27 L code = 698) PH, BLOOD (BEAKER) (test code = 7.46 1810) Check serum Ionized Calcium level after 4 hours after IV Calcium replacement. URINE [id number] 08:18:00 Test Item Value Reference Range Interpretation Comments CULTURE (BEAKER) (test code = 1095) No growth [id number] 03:59:00 Test Item Value Reference Range Interpretation Comments PHOSPHORUS (BEAKER) (test code = 2.5 mg/dL 2.3-4.7 604) Check Serum Phosphorus level 4 hours after IV phosphorus replacement or 8 hours after PO replacementcompleted.[id number] 03:59:00 Test Item Value Reference Range Interpretation Comments MAGNESIUM (BEAKER) (test code = 2.1 mg/dL 1.6-2.6 627) Check Serum Phosphorus level 4 hours after IV phosphorus replacement or 8 hours after PO replacementcompleted.BASIC METABOLIC [id number] 03:59:00 Test Item Value Reference Range Interpretation Comments SODIUM (BEAKER) 143 meq/L 136-145 (test code = 381) POTASSIUM (BEAKER) 3.3 meq/L 3.5-5.1 L (test code = 379) CHLORIDE (BEAKER) 112 meq/L 98-107 H (test code = 382) CO2 (BEAKER) (test 25 meq/L 22-29 code = 355) BLOOD UREA NITROGEN 5 mg/dL 7-21 L (BEAKER) (test code = 354) CREATININE (BEAKER) 0.65 mg/dL 0.57-1.25 (test code = 358) GLUCOSE RANDOM 92 mg/dL 70-105 (BEAKER) (test code = 652) CALCIUM (BEAKER) 8.4 mg/dL 8.4-10.2 (test code = 697) EGFR (BEAKER) (test 144 mL/min/1.73 ESTIM ATED GFR IS code = 1092) sq m NOT ACCURATE CREATININE CLEARANCE IN PREDICTING GLOMERULAR FILTRATION RATE . ESTIMATED GFR I S NOT APPLICABLE FOR DIALYSIS PATIEN TS. Check Serum Phosphorus level 4 hours after IV phosphorus replacement or 8 hours after PO replacementcompleted.CBC W/PLT COUNT & AUTO [id number] 03:41:00 Test Item Value Reference Range Interpretation Comments WHITE BLOOD CELL COUNT (BEAKER) 8.0 K/ L 3.5-10.5 (test code = 775) RED BLOOD CELL COUNT (BEAKER) 3.69 M/ L 4.63-6.08 L (test code = 761) HEMOGLOBIN (BEAKER) (test code = 11.0 GM/DL 13.7-17.5 L 410) HEMATOCRIT (BEAKER) (test code = 33.5 % 40.1-51.0 L 411) MEAN CORPUSCULAR VOLUME (BEAKER) 90.8 fL 79.0-92.2 (test code = 753) MEAN CORPUSCULAR HEMOGLOBIN 29.8 pg 25.7-32.2 (BEAKER) (test code = 751) MEAN CORPUSCULAR HEMOGLOBIN CONC 32.8 GM/DL 32.3-36.5 (BEAKER) (test code = 752) RED CELL DISTRIBUTION WIDTH 13.5 % 11.6-14.4 (BEAKER) (test code = 412) PLATELET COUNT (BEAKER) (test 153 K/CU MM 150-450 code = 756) MEAN PLATELET VOLUME (BEAKER) 10.5 fL 9.4-12.4 (test code = 754) NUCLEATED RED BLOOD CELLS 0 /100 WBC 0-0 (BEAKER) (test code = 413) NEUTROPHILS RELATIVE PERCENT 62 % (BEAKER) (test code = 429) LYMPHOCYTES RELATIVE PERCENT 29 % (BEAKER) (test code = 430) MONOCYTES RELATIVE PERCENT 8 % (BEAKER) (test code = 431) EOSINOPHILS RELATIVE PERCENT 1 % (BEAKER) (test code = 432) BASOPHILS RELATIVE PERCENT 0 % (BEAKER) (test code = 437) NEUTROPHILS ABSOLUTE COUNT 4.92 K/ L 1.78-5.38 (BEAKER) (test code = 670) LYMPHOCYTES ABSOLUTE COUNT 2.31 K/ L 1.32-3.57 (BEAKER) (test code = 414) MONOCYTES ABSOLUTE COUNT (BEAKER) 0.65 K/ L 0.30-0.82 (test code = 415) EOSINOPHILS ABSOLUTE COUNT 0.06 K/ L 0.04-0.54 (BEAKER) (test code = 416) BASOPHILS ABSOLUTE COUNT (BEAKER) 0.02 K/ L 0.01-0.08 (test code = 417) IMMATURE GRANULOCYTES-RELATIVE 0 % 0-1 PERCENT (BEAKER) (test code = 2801) POCT-GLUCOSE [id number] 23:55:00 Test Item Value Reference Range Interpretation Comments POC-GLUCOSE METER 94 mg/dL 70-110 TESTED AT [facility] [address] (BEAKER) (test code = [place] [address] 1538) [id number] 18:08:00 Test Item Value Reference Range Interpretation Comments POTASSIUM (BEAKER) (test code = 3.4 meq/L 3.5-5.1 L 379) Check Serum Potassium level 2 hours after oral potassium replacement completed or 30 min after intravenous potassium replacement.EEG MONITORING WITH VIDEO RECORDING EACH 24 [id number] 09:23:00DATE OF REPORT: 09/11/2018ACC: [id number]: Start time: 09/10 at 15:05Stop time: 10/28 at 09:20 AMICD- 10: R56.9CPT Code: 55926 HISTORY: 28 yo male with h/o seizures [...] MDNeurophysiology Fellow Joao Blum M.D., FACNSProfessor of NeurologyVA Palo Alto HospitalDirector, [facility] Epilepsy [facility] Neurophysiology Lab RAD, CHEST, 1 VIEW, NON DEPT 2018-09-11 07:32:00Reason for exam:->post intubationShould this be performed at [...] cardiomediastinal silhouette is magnified by technique. Signed: Vuong, Kody MDReport Verified Date/Time: 09/11/2018 07:32:46 Reading Location: [facility] C013V Neuro Reading Room POCT-GLUCOSE [id number] 06:30:00 Test Item Value Reference Range Interpretation Comments POC-GLUCOSE METER 111 mg/dL 70-110 H TESTED AT [facility] [address] (BEAKER) (test code = [address] 1538) [address] BASIC METABOLIC [id number] 06:06:00 Test Item Value Reference Range Interpretation Comments SODIUM (BEAKER) 138 meq/L 136-145 (test code = 381) POTASSIUM (BEAKER) 3.4 meq/L 3.5-5.1 L (test code = 379) CHLORIDE (BEAKER) 110 meq/L 98-107 H (test code = 382) CO2 (BEAKER) (test 20 meq/L 22-29 L code = 355) BLOOD UREA NITROGEN 8 mg/dL 7-21 (BEAKER) (test code = 354) CREATININE (BEAKER) 0.70 mg/dL 0.57-1.25 (test code = 358) GLUCOSE RANDOM 107 mg/dL 70-105 H (BEAKER) (test code = 652) CALCIUM (BEAKER) 8.4 mg/dL 8.4-10.2 (test code = 697) EGFR (BEAKER) (test 132 mL/min/1.73 ESTIM ATED GFR IS code = 1092) sq m NOT ACCURATE CREATININE CLEARANCE IN PREDICTING GLOMERULAR FILTRATION RATE . ESTIMATED GFR I S NOT APPLICABLE FOR DIALYSIS PATIEN TS. CBC W/PLT COUNT & AUTO [id number] 03:47:00 Test Item Value Reference Range Interpretation Comments WHITE BLOOD CELL COUNT (BEAKER) 7.9 K/ L 3.5-10.5 (test code = 775) RED BLOOD CELL COUNT (BEAKER) 3.85 M/ L 4.63-6.08 L (test code = 761) HEMOGLOBIN (BEAKER) (test code = 11.4 GM/DL 13.7-17.5 L 410) HEMATOCRIT (BEAKER) (test code = 34.7 % 40.1-51.0 L 411) MEAN CORPUSCULAR VOLUME (BEAKER) 90.1 fL 79.0-92.2 (test code = 753) MEAN CORPUSCULAR HEMOGLOBIN 29.6 pg 25.7-32.2 (BEAKER) (test code = 751) MEAN CORPUSCULAR HEMOGLOBIN CONC 32.9 GM/DL 32.3-36.5 (BEAKER) (test code = 752) RED CELL DISTRIBUTION WIDTH 14.2 % 11.6-14.4 (BEAKER) (test code = 412) PLATELET COUNT (BEAKER) (test 163 K/CU MM 150-450 code = 756) MEAN PLATELET VOLUME (BEAKER) 10.3 fL 9.4-12.4 (test code = 754) NUCLEATED RED BLOOD CELLS 0 /100 WBC 0-0 (BEAKER) (test code = 413) NEUTROPHILS RELATIVE PERCENT 68 % (BEAKER) (test code = 429) LYMPHOCYTES RELATIVE PERCENT 23 % (BEAKER) (test code = 430) MONOCYTES RELATIVE PERCENT 8 % (BEAKER) (test code = 431) EOSINOPHILS RELATIVE PERCENT 0 % (BEAKER) (test code = 432) BASOPHILS RELATIVE PERCENT 0 % (BEAKER) (test code = 437) NEUTROPHILS ABSOLUTE COUNT 5.41 K/ L 1.78-5.38 H (BEAKER) (test code = 670) LYMPHOCYTES ABSOLUTE COUNT 1.79 K/ L 1.32-3.57 (BEAKER) (test code = 414) MONOCYTES ABSOLUTE COUNT (BEAKER) 0.67 K/ L 0.30-0.82 (test code = 415) EOSINOPHILS ABSOLUTE COUNT 0.02 K/ L 0.04-0.54 L (BEAKER) (test code = 416) BASOPHILS ABSOLUTE COUNT (BEAKER) 0.03 K/ L 0.01-0.08 (test code = 417) IMMATURE GRANULOCYTES-RELATIVE 0 % 0-1 PERCENT (BEAKER) (test code = 2801) BLOOD GAS, [id number] 03:32:00 Test Item Value Reference Range Interpretation Comments PH ARTERIAL (BEAKER) (test code = 7.38 7.35-7.45 383) PCO2 ARTERIAL (BEAKER) (test code 42 mmHg 35-45 = 384) PO2 ARTERIAL (BEAKER) (test code 120 mmHg 80-90 H = 385) O2 SATURATION ARTERIAL (BEAKER) 98.3 % 96.0-97.0 H (test code = 386) HCO3 ARTERIAL (BEAKER) (test code 24 mmol/L 21-29 = 388) BASE EXCESS ARTERIAL (BEAKER) -0.8 mmol/L -2.0-3.0 (test code = 387) PATIENT TEMPERATURE (BEAKER) 37.0 C (test code = 1818) FIO2 (BEAKER) (test code = 1819) 40.0 % POCT-GLUCOSE [id number] 01:01:00 Test Item Value Reference Range Interpretation Comments POC-GLUCOSE METER 91 mg/dL 70-110 TESTED AT [facility] [address] ([facility]) (test code = [place] [address] 1538) TROPONIN [id number] 17:18:00 Test Item Value Reference Range Interpretation Comments TROPONIN I (BEAKER) (test code = 397) < ng/mL 0.00-0.03 Troponin I (TnI) levels [...] neurological disease, and persistent tachyarrhythmia.EEG AWAKE AND [id number] 15:50:00 Reason for exam:->Status epilepticus, c EEG for evaluation of subclinical seizures Should this beperformed at the bedside?->YesDATE OF REPORT: 09/10/2018ACC: [id number]: [id number] time: 14:47Stop time: 15:04ICD-10: R56.9CPTCode: 04817 HISTORY: 28 yo male with h/o seizures [...] MDNeurophysiology Fellow Joao Blum M.D., FACNSProfessor of NeurologyVA Palo Alto HospitalDirector, [facility] Epilepsy [place] BLOOD GAS, [id number] 12:32:00 Test Item Value Reference Range Interpretation Comments PH ARTERIAL (BEAKER) (test code = 7.37 7.35-7.45 383) PCO2 ARTERIAL (BEAKER) (test code 38 mmHg 35-45 = 384) PO2 ARTERIAL (BEAKER) (test code 208 mmHg 80-90 H = 385) O2 SATURATION ARTERIAL (BEAKER) 99.4 % 96.0-97.0 H (test code = 386) HCO3 ARTERIAL (BEAKER) (test code 21 mmol/L 21-29 = 388) BASE EXCESS ARTERIAL (BEAKER) -3.4 mmol/L -2.0-3.0 L (test code = 387) PATIENT TEMPERATURE (BEAKER) 37.1 C (test code = 1818) FIO2 (BEAKER) (test code = 1819) 40.0 % RAD, ABDOMEN/KUB, 1 VIEW [id number] 12:12:00Reason for exam:->corpakShould this be performed at the bedside?->YesFINAL REPORT AP abdomen, three images HISTORY: Feeding tube COMPARISON: 11/01/2015 IMPRESSION:Feeding tube present with tip in abdomen. Bowel gas pattern appears grossly nonobstructive. Signed: Edgardo Guzman MDReport Verified Date/Time: 09/10/2018 12:12:56 Reading Location: [facility] B1 C013X Ortho Consult Reading Room , CHEST, 1 VIEW, NON [id number] 10:40:00Reason for exam:->post intubationShould this be performed at the bedside?->YesFINAL REPORT AP chest HISTORY: Intubation COMPARISON: None IMPRESSION:Endotrac heal tube in satisfactory position. Right IJ central venous catheter at mid SVC. Heart size normal. Mild perihilar atelectasis. Lungs otherwise clear. No pneumothorax. Signed: Edgardo Guzman MDReport Verified Date/Time: 09/10/2018 10:40:47 Reading Location: [facility] C013X Ortho Consult Reading Room El ectronically signed by: EDGARDO GUZMAN M.D. on 09/10/2018 10:40 AM TROPONIN [id number] 09:21:00 Test Item Value Reference Range Interpretation Comments TROPONIN I (BEAKER) (test code = 397) < ng/mL 0.00-0.03 Troponin I (TnI) levels [...] failure, acidosis, acute neurological disease, and persistent tachyarrhythmia.[id number] 09:19:00 Test Item Value Reference Range Interpretation Comments CARBAMAZEPINE LEVEL (BEAKER) (test 2.2 ug/mL 4.0-12.0 L code = 696) PHENYTOIN LEVEL, [id number] 09:18:00 Test Item Value Reference Range Interpretation Comments PHENYTOIN (DILANTIN) (BEAKER) 10.8 ug/mL 10.0-20.0 (test code = 605) [id number] 09:03:00 Test Item Value Reference Range Interpretation Comments PARTIAL THROMBOPLASTIN TIME 27.5 seconds 22.5-36.0 (BEAKER) (test code = 760) PROTHROMBIN TIME/[id number] 09:02:00 Test Item Value Reference Range Interpretation Comments PROTIME (BEAKER) (test code = 14.6 seconds 11.7-14.7 759) INR (BEAKER) (test code = 370) 1.1 <=5.9 RECOMMENDED COUMADIN/WARFARIN INR THERAPY RANGESSTANDARD DOSE: 2.0 - 3.0 Includes: PROPHYLAXIS forvenous thrombosis, systemic embolization; TREATMENT for venous thrombosis and/or pulmonary embolus.HIGH RISK: Target INR is 2.5-3.5 for patients with mechanical heart valves.PLATELET [id number] 08:53:00 Test Item Value Reference Range Interpretation Comments PLATELET COUNT (BEAKER) (test 184 K/CU MM 150-450 code = 756) BASIC METABOLIC [id number] 07:07:00 Test Item Value Reference Range Interpretation Comments SODIUM (BEAKER) 140 meq/L 136-145 (test code = 381) POTASSIUM (BEAKER) 4.0 meq/L 3.5-5.1 (test code = 379) CHLORIDE (BEAKER) 115 meq/L 98-107 H (test code = 382) CO2 (BEAKER) (test 20 meq/L 22-29 L code = 355) BLOOD UREA NITROGEN 7 mg/dL 7-21 (BEAKER) (test code = 354) CREATININE (BEAKER) 0.83 mg/dL 0.57-1.25 (test code = 358) GLUCOSE RANDOM 95 mg/dL 70-105 (BEAKER) (test code = 652) CALCIUM (BEAKER) 8.6 mg/dL 8.4-10.2 (test code = 697) EGFR (BEAKER) (test 109 mL/min/1.73 ESTIM ATED GFR IS code = 1092) sq m NOT ACCURATE CREATININE CLEARANCE IN PREDICTING GLOMERULAR FILTRATION RATE . ESTIMATED GFR I S NOT APPLICABLE FOR DIALYSIS PATIEN TS. CREATINE KINASE (CK)2018-08-13 07:07:00 Test Item Value Reference Range Interpretation Comments CREATINE KINASE TOTAL (BEAKER) (test 1709 U/L 29-200 H code = 380) BASIC METABOLIC [id number] 05:19:00 Test Item Value Reference Range Interpretation Comments SODIUM (BEAKER) 141 meq/L 136-145 (test code = 381) POTASSIUM (BEAKER) 4.1 meq/L 3.5-5.1 (test code = 379) CHLORIDE (BEAKER) 117 meq/L 98-107 H (test code = 382) CO2 (BEAKER) (test 19 meq/L 22-29 L code = 355) BLOOD UREA NITROGEN 11 mg/dL 7-21 (BEAKER) (test code = 354) CREATININE (BEAKER) 0.84 mg/dL 0.57-1.25 (test code = 358) GLUCOSE RANDOM 97 mg/dL 70-105 (BEAKER) (test code = 652) CALCIUM (BEAKER) 8.8 mg/dL 8.4-10.2 (test code = 697) EGFR (BEAKER) (test 107 mL/min/1.73 ESTIM ATED GFR IS code = 1092) sq m NOT ACCURATE CREATININE CLEARANCE IN PREDICTING GLOMERULAR FILTRATION RATE . ESTIMATED GFR I S NOT APPLICABLE FOR DIALYSIS PATIEN TS. CREATINE KINASE (CK)2018-08-12 05:19:00 Test Item Value Reference Range Interpretation Comments CREATINE KINASE TOTAL (BEAKER) (test 1766 U/L 29-200 H code = 380) POCT-GLUCOSE [id number] 17:02:00 Test Item Value Reference Range Interpretation Comments POC-GLUCOSE METER 93 mg/dL 70-110 TESTED AT [facility] [address] (BEAKER) (test code = [place] [address] 1538) [id number] 04:54:00 Test Item Value Reference Range Interpretation Comments MAGNESIUM (BEAKER) (test code = 2.1 mg/dL 1.6-2.6 627) BASIC METABOLIC [id number] 04:54:00 Test Item Value Reference Range Interpretation Comments SODIUM (BEAKER) 142 meq/L 136-145 (test code = 381) POTASSIUM (BEAKER) 4.4 meq/L 3.5-5.1 (test code = 379) CHLORIDE (BEAKER) 116 meq/L 98-107 H (test code = 382) CO2 (BEAKER) (test 22 meq/L 22-29 code = 355) BLOOD UREA NITROGEN 8 mg/dL 7-21 (BEAKER) (test code = 354) CREATININE (BEAKER) 0.84 mg/dL 0.57-1.25 (test code = 358) GLUCOSE RANDOM 88 mg/dL 70-105 (BEAKER) (test code = 652) CALCIUM (BEAKER) 9.0 mg/dL 8.4-10.2 (test code = 697) EGFR (MAXIMINO) (test 107 mL/min/1.73 ESTIM ATED GFR IS code = 1092) sq m NOT ACCURATE CREATININE CLEARANCE IN PREDICTING GLOMERULAR FILTRATION RATE . ESTIMATED GFR I S NOT APPLICABLE FOR DIALYSIS PATIEN TS. CREATINE KINASE (CK)2018-08-11 04:54:00 Test Item Value Reference Range Interpretation Comments CREATINE KINASE TOTAL (MAXIMINO) (test 2031 U/L 29-200 H code = 380) EEG AWAKE AND [id number] 16:50:00Reason for exam:->seizure disorder Neurophysiology Electroencephalogram Report DATE OF REPORT: 08/10/18Date(s) of Study: 08/10/2018ACC: [id number]: 18-8Start time: 1517 hrsStop time: 1537 hrsICD-10: R56.9 Unspecified ConvulsionsCPT Code: 05387 EEG: awake and drowsy <40 min HISTORY: [...] Fellow Shamir Najera MD, MSClinical Neurophysiology/Epilepsy Attending [facility] Neurophysiology Service URINALYSIS W/ [id number] 05:20:00 Test Item Value Reference Range Interpretation Comments COLOR (BEAKER) (test code = 470) Yellow CLARITY (BEAKER) (test code = 469) Clear SPECIFIC GRAVITY UA (BEAKER) (test 1.011 1.001-1.035 code = 468) PH UA (BEAKER) (test code = 467) 7.0 5.0-8.0 PROTEIN UA (BEAKER) (test code = Negative Negative 464) GLUCOSE UA (BEAKER) (test code = Negative Negative 365) KETONES UA (BEAKER) (test code = Negative Negative 371) BILIRUBIN UA (BEAKER) (test code = Negative Negative 462) BLOOD UA (BEAKER) (test code = 461) Negative Negative NITRITE UA (BEAKER) (test code = Negative Negative 465) LEUKOCYTE ESTERASE UA (BEAKER) Negative Negative (test code = 466) UROBILINOGEN UA (BEAKER) (test code 2.0 mg/dL 0.2-1.0 H = 463) RBC UA (BEAKER) (test code = 519) < /HPF WBC UA (BEAKER) (test code = 520) 0 /HPF SOURCE(BEAKER) (test code = 2795) [id number] 03:17:00 Test Item Value Reference Range Interpretation Comments CARBAMAZEPINE LEVEL (BEAKER) (test < ug/mL 4.0-12.0 L code = 696) [id number] 02:33:00 Test Item Value Reference Range Interpretation Comments PHOSPHORUS (BEAKER) (test code = 2.8 mg/dL 2.3-4.7 604) [id number] 02:33:00 Test Item Value Reference Range Interpretation Comments MAGNESIUM (BEAKER) (test code = 2.2 mg/dL 1.6-2.6 627) BASIC METABOLIC [id number] 02:33:00 Test Item Value Reference Range Interpretation Comments SODIUM (BEAKER) 138 meq/L 136-145 (test code = 381) POTASSIUM (BEAKER) 3.4 meq/L 3.5-5.1 L (test code = 379) CHLORIDE (BEAKER) 109 meq/L 98-107 H (test code = 382) CO2 (BEAKER) (test 21 meq/L 22-29 L code = 355) BLOOD UREA NITROGEN 16 mg/dL 7-21 (BEAKER) (test code = 354) CREATININE (BEAKER) 0.83 mg/dL 0.57-1.25 (test code = 358) GLUCOSE RANDOM 105 mg/dL 70-105 (BEAKER) (test code = 652) CALCIUM (BEAKER) 8.7 mg/dL 8.4-10.2 (test code = 697) EGFR (BEAKER) (test 109 mL/min/1.73 ESTIM ATED GFR IS code = 1092) sq m NOT ACCURATE CREATININE CLEARANCE IN PREDICTING GLOMERULAR FILTRATION RATE . ESTIMATED GFR I S NOT APPLICABLE FOR DIALYSIS PATIEN TS. HEPATIC FUNCTION [id number] 02:33:00 Test Item Value Reference Range Interpretation Comments TOTAL PROTEIN (BEAKER) (test code = 6.5 gm/dL 6.0-8.3 770) ALBUMIN (BEAKER) (test code = 1145) 3.9 g/dL 3.5-5.0 BILIRUBIN TOTAL (BEAKER) (test code 0.8 mg/dL 0.2-1.2 = 377) BILIRUBIN DIRECT (BEAKER) (test 0.3 mg/dL 0.1-0.5 code = 706) ALKALINE PHOSPHATASE (BEAKER) (test 85 U/L 40-150 code = 346) AST (SGOT) (BEAKER) (test code = 43 U/L 5-34 H 353) ALT (SGPT) (BEAKER) (test code = 33 U/L 6-55 347) CREATINE KINASE (CK)2018-08-10 02:33:00 Test Item Value Reference Range Interpretation Comments CREATINE KINASE TOTAL (BEAKER) (test 968 U/L 29-200 H code = 380) C-REACTIVE [id number] 02:33:00 Test Item Value Reference Range Interpretation Comments C-REACTIVE PROTEIN (BEAKER) (test 0.45 mg/dL 0.00-0.50 code = 676) LACTIC ACID, VENOUS, WHOLE [id number] 02:26:00 Test Item Value Reference Range Interpretation Comments LACTATE BLOOD VENOUS 1.0 mmol/L 0.5-2.2 Specime n slightly (2) (BEAKER) (test hemolyzed code = 2872) Effective 03/18/2016: Units/Reference Range ChangeNew: 0.5-2.2 mmol/L Previous: 5-20 mg/dLCBC W/PLT COUNT & AUTO [id number] 02:05:00 Test Item Value Reference Range Interpretation Comments WHITE BLOOD CELL COUNT (BEAKER) 7.7 K/ L 3.5-10.5 (test code = 775) RED BLOOD CELL COUNT (BEAKER) 4.16 M/ L 4.63-6.08 L (test code = 761) HEMOGLOBIN (BEAKER) (test code = 12.3 GM/DL 13.7-17.5 L 410) HEMATOCRIT (BEAKER) (test code = 36.8 % 40.1-51.0 L 411) MEAN CORPUSCULAR VOLUME (BEAKER) 88.5 fL 79.0-92.2 (test code = 753) MEAN CORPUSCULAR HEMOGLOBIN 29.6 pg 25.7-32.2 (BEAKER) (test code = 751) MEAN CORPUSCULAR HEMOGLOBIN CONC 33.4 GM/DL 32.3-36.5 (BEAKER) (test code = 752) RED CELL DISTRIBUTION WIDTH 13.4 % 11.6-14.4 (BEAKER) (test code = 412) PLATELET COUNT (BEAKER) (test 195 K/CU MM 150-450 code = 756) MEAN PLATELET VOLUME (BEAKER) 11.2 fL 9.4-12.4 (test code = 754) NUCLEATED RED BLOOD CELLS 0 /100 WBC 0-0 (BEAKER) (test code = 413) NEUTROPHILS RELATIVE PERCENT 58 % (BEAKER) (test code = 429) LYMPHOCYTES RELATIVE PERCENT 30 % (BEAKER) (test code = 430) MONOCYTES RELATIVE PERCENT 10 % (BEAKER) (test code = 431) EOSINOPHILS RELATIVE PERCENT 2 % (BEAKER) (test code = 432) BASOPHILS RELATIVE PERCENT 1 % (BEAKER) (test code = 437) NEUTROPHILS ABSOLUTE COUNT 4.46 K/ L 1.78-5.38 (BEAKER) (test code = 670) LYMPHOCYTES ABSOLUTE COUNT 2.31 K/ L 1.32-3.57 (BEAKER) (test code = 414) MONOCYTES ABSOLUTE COUNT (BEAKER) 0.74 K/ L 0.30-0.82 (test code = 415) EOSINOPHILS ABSOLUTE COUNT 0.13 K/ L 0.04-0.54 (BEAKER) (test code = 416) BASOPHILS ABSOLUTE COUNT (BEAKER) 0.04 K/ L 0.01-0.08 (test code = 417) IMMATURE GRANULOCYTES-RELATIVE 0 % 0-1 PERCENT (BEAKER) (test code = 2801) POCT-BLOOD GASES, [id number] 01:50:00 Test Item Value Reference Range Interpretation Comments TEMP, CELSIUS-POC 37.0 (BEAKER) (test code = 1834) FIO2-POC (BEAKER) TESTED AT [facility] 67 (test code = 1835) [place] [facility] [place] [address] PH, ARTERIAL-POC 7.396 7.350-7.450 (BEAKER) (test code = 1836) PCO2, ARTERIAL-POC 35.3 mm Hg 35.0-45.0 (BEAKER) (test code = 1837) PO2, ARTERIAL-POC 104.0 mm Hg 80.0-90.0 H (BEAKER) (test code = 1838) SO2, ARTERIAL-POC 98.0 % 96.0-97.0 H (BEAKER) (test code = 1839) HCO3, ARTERIAL-POC 21.7 meq/L 21.0-29.0 (BEAKER) (test code = 1840) BASE EXCESS, -3.0 meq/L -2.0-3.0 L ARTERIAL-POC (BEAKER) (test code = 1841) [id number] 01:50:00 Test Item Value Reference Range Interpretation Comments POC-SODIUM (BEAKER) 140 meq/L 135-148 TESTED A T [facility] 6720 (test code = 1542) [place] Rodgers [place] [address] [id number] 01:50:00 Test Item Value Reference Range Interpretation Comments POC-POTASSIUM 3.4 meq/L 3.6-5.5 L TESTED AT [facility] 6720 (BEAKER) (test code [facility] [place] [address] = 1540) [id number] 01:50:00 Test Item Value Reference Range Interpretation Comments POC-GLUCOSE ([facility]) 105 mg/dL 70-110 TESTED AT [place] [address] (test code = 1855) [place] [address] POCT-CALCIUM [id number] 01:50:00 Test Item Value Reference Range Interpretation Comments POC-CALCIUM IONIZED 1.15 mmol/L 1.12-1.27 TESTED A T [place] [address] ([facility]) (test code = [place] 15[address]) [address] [id number] 01:50:00 Test Item Value Reference Range Interpretation Comments POC-HEMATOCRIT 35 % 40-50 L TESTED AT [place] [address] ([facility]) (test code = [place] [address]57) [id number] 01:50:00 Test Item Value Reference Range Interpretation Comments POC-HEMOGLOBIN 11.9 g/dL 13.0-16.8 L TESTED AT [place] [address] ([facility]) (test code [place] = 1856) [id number] AT [place] [address] [place] [facility] [address] POCT-LACTIC ACID, [id number] 01:49:00 Test Item Value Reference Range Interpretation Comments POC-LACTIC ACID, 0.9 mmol/L 0.4-1.3 TESTED AT [place] [address] ARTERIAL ([facility]) [facility] [place] (test code = 2804) [address]
[2020-06-26] MEDS ORDERED: NA CHLORIDE 0.9% 1,000 ML ONE (13:59)
[2020-06-26] MEDS ORDERED: clonazePAM 0.5 MG TAB PO PRN (15:10)
[2020-06-26 15:19] VITALS: O2SAT 98
[2020-06-26 15:25] VITALS: BMI 38.4
[2020-06-26] MEDS: NA CHLORIDE 0.9% 1,000 ML IV SCH (15:36)
[2020-06-26] MEDS ORDERED: clonazePAM 1 MG TAB PO ONE (16:00)
[2020-06-26] MEDS ORDERED: LORazepam 2 MG/ML VIAL IV ONE (21:48)
[2020-06-26] MEDS: MORPHINE 2 MG/ML SYR IV PRN (21:54)
[2020-06-26] MEDS: LORazepam 2 MG/ML VIAL IV PRN (23:46)
[2020-06-27] MEDS: LORazepam 2 MG/ML VIAL IV PRN ×2 (03:31→11:36)
[2020-06-27] MEDS: NA CHLORIDE 0.9% 1,000 ML IV SCH ×2 (03:50→14:40)
[2020-06-27 03:52] LABS: Absolute Lymphocytes (CBC) 2.1 K/uL (0.7-4.9); Basophils % 0.9 % (0-1.3); Hematocrit 39.3 % (39.6-49.0); Lymphocytes % 36.4 % (15.3-44.8); MPV 9.2 fL (7.6-11.3); RBC Red Blood Cell Count 4.36 M/uL (4.33-5.43)
[2020-06-27 04:10] LABS: ALT/SGPT 24 U/L (12-78); AST/SGOT 21 U/L (15-37); Albumin 3.6 g/dL (3.4-5.0); Alkaline Phosphatase 98 U/L (45-117); BUN Blood Urea Nitrogen 6 mg/dL (7-18); Bicarbonate 27 mmol/L (21-32); Bilirubin Total 0.6 mg/dL (0.2-1.0); Glucose Level 84 mg/dL (74-106); Potassium 3.8 mmol/L (3.5-5.1); Protein, Total 7.1 g/dL (6.4-8.2); Sodium Level 142 mmol/L (136-145)
[2020-06-27] MEDS: MORPHINE 2 MG/ML SYR IV PRN (04:26)
--- NOTE | 2020-06-27 10:20 | P.HP ---
Certification for Inpatient Patient admitted to: Inpatient With expected LOS: >2 Midnights Patient will require the following post-hospital care: None Practitioner: I am a practitioner with admitting privileges, knowledge of patient current condition, hospital course, and medical plan of care. Services: Services provided to patient in accordance with Admission requirements found in Title 42 Section 412.3 of the Code of Federal Regulations Patient History Date of Service: 06/26/20 Reason for admission: Pseudoseizures versus seizures History of Present Illness: Patient is a 30-year-old gentleman who is been out of the hospital for his seizures. He does not taking medication as prescribed. He has been having the seizures for quite a while. He has been out of the hospital as mentioned before. He was having generalized tonoclonic activity; however, he would come right out of them. Decision was made to admit him to the hospital for further evaluation. Neurology was consulted and they wanted to admit him and monitor him in get an EEG. At this time, will admit the patient to the hospital and did neurochecks. Will also do seizure precautions. Allergies No Known Allergies Allergy (Unverified 02/07/20 14:05) Home Medications: Gabapentin 300 mg PO TID PRN 11/24/18 diazePAM [Diazepam] 10 mg PO BEDTIME PRN 11/24/18 PHENYTOIN ER Cap [Dilantin ER Cap*] 100 tab PO TID 02/07/20 Venlafaxine HCl [Venlafaxine HCl ER] 75 mg PO BID 02/07/20 Zolpidem Tartrate [Zolpidem Tartrate ER] 12.5 tab PO BEDTIME 02/07/20 lamoTRIgine [Lamotrigine] 200 tab PO BID 02/07/20 - Past Medical/Surgical History Diabetic: No -: Seizure -: Depression -: Headaches -: Status epilepticus -: Appendectomy - Family History Father Medical History: Diabetes Brother Medical History: Hypertension Sister Medical History: Cancer - Social History Smoking Status: Unknown if ever smoked Review of Systems 10-point ROS is otherwise unremarkable Physical Examination - Vital Signs Temperature: 96.7 F Blood Pressure: 108/65 Pulse: 62 Respirations: 16 Pulse Ox (%): 98 - Physical Exam General: Alert, In no apparent distress, Oriented x3 HEENT: Atraumatic, PERRLA, Mucous membr. moist/pink, EOMI, Sclerae nonicteric Neck: Supple, 2+ carotid pulse no bruit, No LAD, Without JVD or thyroid abnormality Respiratory: Clear to auscultation bilaterally, Normal air movement Cardiovascular: Regular rate/rhythm, Normal S1 S2, No murmurs Gastrointestinal: Normal bowel sounds, Soft and benign, Non-distended, No tenderness Musculoskeletal: No clubbing, No swelling, No tenderness Integumentary: No rashes Neurological: Normal gait, Normal speech, Normal strength at 5/5 x4 extr, Normal tone, Sensation intact, Cranial nerves 3-12 intact, Normal affect Lymphatics: No axilla or inguinal lymphadenopathy - Studies Laboratory Data (last 24 hrs) 06/27/20 03:31: Sodium 142, Potassium 3.8, BUN 6 L, Creatinine 0.81, Glucose 84, Total Bilirubin 0.6, AST 21, ALT 24, Alkaline Phosphatase 98 06/27/20 03:31: WBC 5.8 D, Hgb 13.2 L, Hct 39.3 L, Plt Count 199 06/26/20 10:05: Sodium 141, Potassium 3.5, BUN 7, Creatinine 1.23, Glucose 124 H 06/26/20 10:05: WBC 8.6, Hgb 14.4, Hct 44.2, Plt Count 234 Assessment & Plan - Problems (Diagnosis) (1) Generalized tonic-clonic seizure Current Visit: Yes Status: Acute (2) Pseudoseizure Current Visit: Yes Status: Acute (3) Seizure, epileptic Onset Date: 11/25/18 Current Visit: No Status: Acute Qualifiers: - Plan Plan: 1. Resume anti epileptics 2. Neurology consultation 3. EEG 4. Seizure precautions 5. Neurochecks 6. Monitor levels closely 7. GI and DVT prophylaxis Discharge Plan: Home Plan to discharge in: 48 Hours - Advance Directives Does patient have a Living Will: No Does patient have a Durable POA for Healthcare: No - Code Status/Comfort Care Code Status Assessed: Yes Code Status: Full Code Critical Care: No Time Spent Managing PTS Care (In Minutes): 45
[2020-06-27 12:02] VITALS: BP 114/76; TEMP 97.2
--- NOTE | 2020-06-27 14:30 | EEG ---
CHART: [id number] TEST ID#: [id number] DATE OF STUDY: 06/27/2020 THE EEG WAS RECORDED PORTABLE IN THE PATIENT'S ROOM ON A 17 CHANNEL MACHINE. ELECTRODES WERE APPLIED IN THE USUAL MANNER USING THE INTERNATIONAL 10-20 SYSTEM. THE WAKING BACKGROUND RHYTHM IN THIS RECORD CONSISTS OF WELL DEVELOPED AND WELL ORGANIZED WAVES OF 10 HZ., WHICH ATTENUATE NORMALLY WITH EYE OPENING. LOW-VOTLAGE 18-22 HZ ACTIVITY IS EXPRESSED IN THE FRONTAL REGIONS. THERE ARE NO FOCAL OR LATERALIZING FEATURES. NO EPILEPTIFORM ACTIVITY APPEARS. SLEEP OCCURRED NATURALLY. IN ADDITION NORMAL SLEEP PATTERNS ARE PRESENT. HYPERVENTILATION WAS NOT PERFORMED. PHOTIC STIMULATION PRODUCED POOR DRIVING BILATERALLY. IMPRESSION: NORMAL EEG FOR THE AGE OF THE PATIENT IN [place], DROWSINESS AND SLEEP.
--- NOTE | 2020-07-02 12:43 | P.DS ---
Discharge Date: 06/27/20 Disposition: ROUTINE DISCHARGE Discharge Condition: GOOD Reason for Admission: Pseudoseizures versus seizures - Problems (1) Generalized tonic-clonic seizure Status: Acute (2) Pseudoseizure Status: Acute (3) Seizure, epileptic Onset Date: 11/25/18 Status: Acute Qualifiers: Brief History of Present Illness: Patient is a 30-year-old gentleman who is been out of the hospital for his seizures. He does not taking medication as prescribed. He has been having the seizures for quite a while. He has been out of the hospital as mentioned before. He was having generalized tonoclonic activity; however, he would come right out of them. Decision was made to admit him to the hospital for further evaluation. Neurology was consulted and they wanted to admit him and monitor him in get an EEG. At this time, will admit the patient to the hospital and did neurochecks. Will also do seizure precautions. Hospital Course: Patient is clinically doing well. He is very sad about losing his children to his . He has been diagnosed with pseudoseizures. He does need to see psychiatry. He appears to have major depressive disorder. He denies being suicidal. He states that is mother takes care of him and he will discuss with her about making a follow up appointment in. At this time patient is stable for discharge home. Vital Signs/Physical Exam: Temp Pulse Resp BP Pulse Ox 97.2 F 74 16 114/76 98 06/27/20 12:00 06/27/20 12:00 06/27/20 12:00 06/27/20 12:00 06/27/20 12:00 General: Alert, In no apparent distress, Oriented x3 Laboratory Data at Discharge: WBC 5.8 K/uL (4.3-10.9) D 06/27/20 03:31 Hgb 13.2 g/dL (13.6-17.9) L 06/27/20 03:31 Hct 39.3 % (39.6-49.0) L 06/27/20 03:31 Plt Count 199 K/uL (152-406) 06/27/20 03:31 Sodium 142 mmol/L (136-145) 06/27/20 03:31 Potassium 3.8 mmol/L (3.5-5.1) 06/27/20 03:31 BUN 6 mg/dL (7-18) L 06/27/20 03:31 Creatinine 0.81 mg/dL (0.55-1.3) 06/27/20 03:31 Glucose 84 mg/dL (74-106) 06/27/20 03:31 Total Bilirubin 0.6 mg/dL (0.2-1.0) 06/27/20 03:31 AST 21 U/L (15-37) 06/27/20 03:31 ALT 24 U/L (12-78) 06/27/20 03:31 Alkaline Phosphatase 98 U/L (45-117) 06/27/20 03:31 Home Medications: Gabapentin 300 mg PO TID PRN 11/24/18 diazePAM [Diazepam] 10 mg PO BEDTIME PRN 11/24/18 PHENYTOIN ER Cap [Dilantin ER Cap*] 100 tab PO TID 02/07/20 Venlafaxine HCl [Venlafaxine HCl ER] 75 mg PO BID 02/07/20 lamoTRIgine [Lamotrigine] 200 tab PO BID 02/07/20 clonazePAM [Klonopin*] 0.5 mg PO TID PRN #30 tab 06/27/20 New Medications: clonazePAM [Klonopin*] 0.5 mg PO TID PRN #30 tab PRN Reason: Anxiety Patient Discharge Instructions: OK TO DC IV AND DC HOME. FOLLOW-UP WITH PRIMARY CARE PROVIDER IN 1-2 WEEKS. FOLLOW-UP WITH NEUROLOGY IN THE NEXT 2 WEEKS FOR POSSIBLE VIDEO EEG MONITORING. RETURN TO THE ER IF symptoms worsen. CALL or TEXT DR. BEST AT [phone] IF ANY QUESTIONS REGARDING HOSPITAL STAY. PLEASE CALL THE FLOOR AT [phone] IF ANY MEDICATION OR NURSING QUESTIONS. Diet: Regular Activity: Fall precautions Followup: Luther Christensen MD [ASSOCIATE-ACTIVE - CAN ADMIT] - Time spent managing pt's care (in minutes): 25
== END 2020-06-27 15:45 | disposition home or self-care (01) | DRG 880 ==
LOC: ER 09:35 → ERHOLD 11:20 → 2ND 14:27 → OBSVTOIN 06-27 08:07
PROVIDERS: ADMIT Hospitalist; ATTEND Hospitalist
DX: F44.5 Conversion disorder with seizures or convulsions (principal); F32.9 Major depressive disorder, single episode, unspecified; Z91.14 Patient's other noncompliance with medication regimen; Z79.899 Other long term (current) drug therapy; Z90.49 Acquired absence of other specified parts of digestive tract; Z11.59 Encounter for screening for other viral diseases
CPT/HCPCS: 36415; 70450; 80048; 80053; 80185; 85025; 95819; 99285; G0378; J1953; J2270; J3360; J7030; Q2009; U0002

== ENCOUNTER 2020-07-20 13:26 | Emergency (ER) | payer SELFPAY ==
--- OUTSIDE RECORDS SUMMARY | 2020-07-20 13:28 | XMS REPORT | Clinical Summary ---
:1990 Author Organization [facility] Address [address] [place] [address] Care Team Providers Name Role Phone Andrew [...] Not on file Results Not on fileafter 07/20/2019 Insurance Payer Benefit Plan / Subscriber ID Type Phone Address Group BLUE CROSS/BLUE BCBS PPO POS EPO xxxxxxxxxxxx PPO [phone] [address] [place] [address] Advance Directives For more information, please contact:[address] [phone] Code Status Date Activated Date Inactivated Comments Full Code 09/10/2018 7:22 AM This code status was determined by: Patient Full Code 08/10/2018 1:35 AM 08/13/2018 8:26 PM This code status was determined by: Patient
--- OUTSIDE RECORDS SUMMARY | 2020-07-20 13:29 | XMS REPORT | Continuity of Care Document ---
:1990 Author Organization [facility] t Address 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 Smoking Status Start Date Stop Date Source Never smoker [facility] edical [place] Medications Ordered Filled Start Stop Current Ordering [...] MG capsule 16:33: daily. Medic al 30 [place] phenytoin 2017-11 Yes 200mg [id number] Take [address] [facility] (DILANTIN) 0-28 [id number] mg by Sherrill kes - 100 MG [...] 1095) No growth in 5 days BLOOD [id number] 18:00:00 Test Item Value Reference Range Interpretation Comments CULTURE (BEAKER) (test No growth in 5 days code = 1095) SPUTUM CULTURE + GRAM [id number] 14:21:00 Test Item Value Reference Range Interpretation Comments CULTURE (BEAKER) 4+ Normal respiratory (test code = 1095) beatrice present GRAM STAIN RESULT 1+ gram positive rods (BEAKER) (test code = 1123) GRAM STAIN RESULT 1+ gram negative cocci (BEAKER) (test code = 82944) GRAM STAIN RESULT 2+ gram positive cocci (BEAKER) (test code = in chains 85642) GRAM STAIN RESULT 1+ gram positive cocci (BEAKER) (test code = in clusters [id number]) RAD, CHEST, 1 VIEW, NON [id number] 07:27:00Reason for exam:->post intubationShould this be performed [...] MDReport Verified Date/Time: 09/13/2018 07:27:51 Reading Location: [facility] Radiology Reading Room PHOSPHORUS 2018-09-13 04:44:00 Test Item Value Reference Range Interpretation Comments PHOSPHORUS (BEAKER) (test code = 2.9 mg/dL 2.3-4.7 604) Check Serum Phosphorus level 4 hours after IV phosphorus replacement or 8 hours after PO replacementcompleted.[id number] 04:44:00 Test Item Value Reference Range Interpretation Comments MAGNESIUM (BEAKER) (test code = 2.2 mg/dL 1.6-2.6 627) Check Serum Phosphorus level 4 hours after IV phosphorus replacement or 8 hours after PO replacementcompleted.BASIC METABOLIC [id number] 04:44:00 Test Item Value Reference Range Interpretation [...] after PO replacementcompleted.CBC W/PLT COUNT & AUTO [id number] 04:19:00 Test Item Value Reference Range Interpretation [...] 0-1 PERCENT (BEAKER) (test code = 2801) [id number] 18:41:00 Test Item Value Reference Range Interpretation Comments POTASSIUM (BEKIMBERLY) (test code = 3.9 meq/L 3.5-5.1 379) Check Serum Potassium level 2 hours after oral potassium replacement completed or 30 min after intravenous potassium replacement.[id number] 18:41:00 Test Item Value Reference Range Interpretation Comments MAGNESIUM (MAXIMINO) (test code = 2.9 mg/dL 1.6-2.6 H 627) Check Serum Potassium level 2 hours after oral potassium replacement completed or 30 min after intravenous potassium replacement.EEG MONITORING WITH VIDEO RECORDING EACH 24 [id number] 14:34:00billing for 09/12 AMDATE OF REPORT: 09/12/2018 ACC: [id number] Start time: 09/11 at 0920 AM Stop time: 09/12 at 11:11 AM ICD-10: R56.9 CPT Code: 83613 HISTORY: 28 year old male p/w increased [...] Fellow Davis Cintron MD, PhD Attending Neurophysiologist [facility] [id number] 12:15:00 Test Item Value Reference Range Interpretation Comments MAGNESIUM (BEAKER) (test code = 1.9 mg/dL 1.6-2.6 627) Check Serum Phosphorus level 4 hours after IV phosphorus replacement or 8 hours after PO replacementcompleted.Check Serum Potassium level 2 hours after oral potassium replacement completed or 30 min after intravenous potassium replacement.[id number] 12:15:00 Test Item Value Reference Range Interpretation Comments PHOSPHORUS (BEAKER) (test code = 2.0 mg/dL 2.3-4.7 L 604) Check Serum Phosphorus level 4 hours after IV phosphorus replacement or 8 hours after PO replacementcompleted.Check Serum Potassium level 2 hours after oral potassium replacement completed or 30 min after intravenous potassium replacement.[id number] 12:14:00 Test Item Value Reference Range Interpretation Comments POTASSIUM (BEAKER) (test code = 3.6 meq/L 3.5-5.1 379) Check Serum Phosphorus level 4 hours after IV phosphorus replacement or 8 hours after PO replacementcompleted.Check Serum Potassium level 2 hours after oral potassium replacement completed or 30 min after intravenous potassium replacement.CALCIUM, [id number] 11:49:00 Test Item Value Reference Range Interpretation Comments CALCIUM IONIZED (BEAKER) (test 1.09 mmol/L 1.12-1.27 L code = 698) PH, BLOOD (BEAKER) (test code = 7.46 1810) Check serum Ionized Calcium level after 4 hours after IV Calcium replacement. URINE [id number] 08:18:00 Test Item Value Reference Range Interpretation Comments CULTURE (BEAKER) (test code = 1095) No growth [id number] 03:59:00 Test Item Value Reference Range Interpretation Comments PHOSPHORUS (BEAKER) (test code = 2.5 mg/dL 2.3-4.7 604) Check Serum Phosphorus level 4 hours after IV phosphorus replacement or 8 hours after PO replacementcompleted.[id number] 03:59:00 Test Item Value Reference Range Interpretation Comments MAGNESIUM (BEAKER) (test code = 2.1 mg/dL 1.6-2.6 627) Check Serum Phosphorus level 4 hours after IV phosphorus replacement or 8 hours after PO replacementcompleted.BASIC METABOLIC [id number] 03:59:00 Test Item Value Reference Range Interpretation [...] after PO replacementcompleted.CBC W/PLT COUNT & AUTO [id number] 03:41:00 Test Item Value Reference Range Interpretation [...] PERCENT (BEAKER) (test code = 2801) POCT-GLUCOSE [id number] 23:55:00 Test Item Value Reference Range Interpretation Comments POC-GLUCOSE METER 94 mg/dL 70-110 TESTED AT [facility] [address] (BEAKER) (test code = [place] [address] 1538) [id number] 18:08:00 Test Item Value Reference Range Interpretation Comments POTASSIUM (BEAKER) (test code = 3.4 meq/L 3.5-5.1 L 379) Check Serum Potassium level 2 hours after oral potassium replacement completed or 30 min after intravenous potassium replacement.EEG MONITORING WITH VIDEO RECORDING EACH 24 [id number] 09:23:00DATE OF REPORT: 09/11/2018ACC: [id number]: Start time: 09/10 at 15:05Stop time: 10/28 at 09:20 AMICD- 10: R56.9CPT Code: 46675 HISTORY: 28 yo male with h/o seizures [...] MDNeurophysiology Fellow Joao Blum M.D., FACNSProfessor of NeurologyPalmdale Regional Medical CenterDirector, [facility] Epilepsy [facility] Neurophysiology Lab RAD, CHEST, 1 VIEW, NON [...] MDReport Verified Date/Time: 09/11/2018 07:32:46 Reading Location: [facility] C013V Neuro Reading Room POCT-GLUCOSE [id number] 06:30:00 Test Item Value Reference Range Interpretation Comments POC-GLUCOSE METER 111 mg/dL 70-110 H TESTED AT [facility] 67[address] (BEAKER) (test code = [place] 1538) [address] BASIC METABOLIC [id number] 06:06:00 Test Item Value Reference Range Interpretation [...] PATIEN TS. CBC W/PLT COUNT & AUTO [id number] 03:47:00 Test Item Value Reference Range Interpretation [...] (BEAKER) (test code = 2801) BLOOD GAS, [id number] 03:32:00 Test Item Value Reference Range Interpretation [...] (test code = 1819) 40.0 % POCT-GLUCOSE [id number] 01:01:00 Test Item Value Reference Range Interpretation Comments POC-GLUCOSE METER 91 mg/dL 70-110 TESTED AT [facility] [address] ([facility]) (test code = [place] [address] 1538) TROPONIN [id number] 17:18:00 Test Item Value Reference Range Interpretation [...] neurological disease, and persistent tachyarrhythmia.EEG AWAKE AND [id number] 15:50:00 Reason for exam:->Status epilepticus, c EEG for evaluation of subclinical seizures Should this beperformed at the bedside?->YesDATE OF REPORT: 09/10/2018ACC: [id number]: [id number] time: 14:47Stop time: 15:04ICD-10: R56.9CPTCode: 30932 HISTORY: 28 yo male with h/o seizures [...] MDNeurophysiology Fellow Joao Blum M.D., FACNSProfessor of NeurologyPalmdale Regional Medical CenterDirector, [facility] Epilepsy [place] BLOOD GAS, [id number] 12:32:00 Test Item Value Reference Range Interpretation [...] 1819) 40.0 % RAD, ABDOMEN/KUB, 1 VIEW [id number] 12:12:00Reason for exam:->corpakShould this be performed at the bedside?->YesFINAL REPORT AP abdomen, three images HISTORY: Feeding tube COMPARISON: 11/01/2015 IMPRESSION:Feeding tube present with tip in abdomen. Bowel gas pattern appears grossly nonobstructive. Signed: Edgardo Guzman MDReport Verified Date/Time: 09/10/2018 12:12:56 Reading Location: [facility] B1 C013X Ortho Consult Reading Room , CHEST, 1 VIEW, NON [id number] 10:40:00Reason for exam:->post intubationShould this be performed at the bedside?->YesFINAL REPORT AP chest HISTORY: Intubation COMPARISON: None IMPRESSION:Endotrac heal tube in satisfactory position. Right IJ central venous catheter at mid SVC. Heart size normal. Mild perihilar atelectasis. Lungs otherwise clear. No pneumothorax. Signed: Edgardo Guzman MDReport Verified Date/Time: 09/10/2018 10:40:47 Reading Location: [facility] C013X Ortho Consult Reading Room El ectronically signed by: EDGARDO GUZMAN M.D. on 09/10/2018 10:40 AM TROPONIN [id number] 09:21:00 Test Item Value Reference Range Interpretation [...] failure, acidosis, acute neurological disease, and persistent tachyarrhythmia.[id number] 09:19:00 Test Item Value Reference Range Interpretation Comments CARBAMAZEPINE LEVEL (BEAKER) (test 2.2 ug/mL 4.0-12.0 L code = 696) PHENYTOIN LEVEL, [id number] 09:18:00 Test Item Value Reference Range Interpretation Comments PHENYTOIN (DILANTIN) (BEAKER) 10.8 ug/mL 10.0-20.0 (test code = 605) [id number] 09:03:00 Test Item Value Reference Range Interpretation Comments PARTIAL THROMBOPLASTIN TIME 27.5 seconds 22.5-36.0 (BEAKER) (test code = 760) PROTHROMBIN [id number] 09:02:00 Test Item Value Reference Range Interpretation Comments PROTIME (BEAKER) (test code = 14.6 seconds 11.7-14.7 759) INR (BEAKER) (test code = 370) 1.1 <=5.9 RECOMMENDED COUMADIN/WARFARIN INR THERAPY RANGESSTANDARD DOSE: 2.0 - 3.0 Includes: PROPHYLAXIS forvenous thrombosis, systemic embolization; TREATMENT for venous thrombosis and/or pulmonary embolus.HIGH RISK: Target INR is 2.5-3.5 for patients with mechanical heart valves.PLATELET [id number] 08:53:00 Test Item Value Reference Range Interpretation Comments PLATELET COUNT (BEAKER) (test 184 K/CU MM 150-450 code = 756) BASIC METABOLIC [id number] 07:07:00 Test Item Value Reference Range Interpretation [...] 29-200 H code = 380) BASIC METABOLIC [id number] 05:19:00 Test Item Value Reference Range Interpretation [...] U/L 29-200 H code = 380) POCT-GLUCOSE [id number] 17:02:00 Test Item Value Reference Range Interpretation Comments POC-GLUCOSE METER 93 mg/dL 70-110 TESTED AT [facility] [address] (BEAKER) (test code = [place] [address] 1538) [id number] 04:54:00 Test Item Value Reference Range Interpretation Comments MAGNESIUM (BEAKER) (test code = 2.1 mg/dL 1.6-2.6 627) BASIC METABOLIC [id number] 04:54:00 Test Item Value Reference Range Interpretation [...] H code = 380) EEG AWAKE AND [id number] 16:50:00Reason for exam:->seizure disorder Neurophysiology Electroencephalogram Report DATE OF REPORT: 08/10/18Date(s) of Study: 08/10/2018ACC: [id number]: 18-8Start time: 1517 hrsStop time: 1537 hrsICD-10: R56.9 Unspecified ConvulsionsCPT Code: 27860 EEG: awake and drowsy <40 min HISTORY: [...] Fellow Shamir Najera MD, MSClinical Neurophysiology/Epilepsy Attending [facility] Neurophysiology Service URINALYSIS W/ [id number] 05:20:00 Test Item Value Reference Range Interpretation [...] 0 /HPF SOURCE(BEAKER) (test code = 2795) [id number] 03:17:00 Test Item Value Reference Range Interpretation Comments CARBAMAZEPINE LEVEL (BEAKER) (test < ug/mL 4.0-12.0 L code = 696) [id number] 02:33:00 Test Item Value Reference Range Interpretation Comments PHOSPHORUS (BEAKER) (test code = 2.8 mg/dL 2.3-4.7 604) [id number] 02:33:00 Test Item Value Reference Range Interpretation Comments MAGNESIUM (BEAKER) (test code = 2.2 mg/dL 1.6-2.6 627) BASIC METABOLIC [id number] 02:33:00 Test Item Value Reference Range Interpretation [...] APPLICABLE FOR DIALYSIS PATIEN TS. HEPATIC FUNCTION [id number] 02:33:00 Test Item Value Reference Range Interpretation [...] U/L 29-200 H code = 380) C-REACTIVE [id number] 02:33:00 Test Item Value Reference Range Interpretation Comments C-REACTIVE PROTEIN (BEAKER) (test 0.45 mg/dL 0.00-0.50 code = 676) LACTIC ACID, VENOUS, WHOLE [id number] 02:26:00 Test Item Value Reference Range Interpretation Comments LACTATE BLOOD VENOUS 1.0 mmol/L 0.5-2.2 Specime n slightly (2) (BEAKER) (test hemolyzed code = 2872) Effective 03/18/2016: Units/Reference Range ChangeNew: 0.5-2.2 mmol/L Previous: 5-20 mg/dLCBC W/PLT COUNT & AUTO [id number] 02:05:00 Test Item Value Reference Range Interpretation [...] (BEAKER) (test code = 2801) POCT-BLOOD GASES, [id number] 01:50:00 Test Item Value Reference Range Interpretation Comments TEMP, CELSIUS-POC 37.0 (BEAKER) (test code = 1834) FIO2-POC (BEAKER) TESTED AT [facility] [address] (test code = 1835) [place] [facility] [place] [address] PH, ARTERIAL-POC 7.396 7.350-7.450 (BEAKER) (test code [...] L ARTERIAL-POC (BEAKER) (test code = 1841) [id number] 01:50:00 Test Item Value Reference Range Interpretation Comments POC-SODIUM (BEAKER) 140 meq/L 135-148 TESTED A T [facility] 6720 (test code = 1542) [place] Rodgers [facility] [place] [address] [id number] 01:50:00 Test Item Value Reference Range Interpretation Comments POC-POTASSIUM 3.4 meq/L 3.6-5.5 L TESTED AT [facility] 67[address] (BEAKER) ([place] [place] [place] [address] = 1540) [id number] 01:50:00 Test Item Value Reference Range Interpretation Comments POC-GLUCOSE ([facility]) 105 mg/dL 70-110 TESTED AT [place] [address] (test code = 1855) [place] [address] POCT-CALCIUM [id number] 01:50:00 Test Item Value Reference Range Interpretation Comments POC-CALCIUM IONIZED 1.15 mmol/L 1.12-1.27 TESTED A T [place] [address] ([facility]) (test code = [place] 1536) [address] [id number] 01:50:00 Test Item Value Reference Range Interpretation Comments POC-HEMATOCRIT 35 % 40-50 L TESTED AT [place] [address] ([facility]) (test code = [place] [address]57) [id number] 01:50:00 Test Item Value Reference Range Interpretation Comments POC-HEMOGLOBIN 11.9 g/dL 13.0-16.8 L TESTED AT [place] [address] ([facility]) (test code [place] = 1856) [id number] AT [place] [address] [place] [facility] [address] POCT-LACTIC ACID, [id number] 01:49:00 Test Item Value Reference Range Interpretation Comments POC-LACTIC ACID, 0.9 mmol/L 0.4-1.3 TESTED AT [place] [address] ARTERIAL ([facility]) [facility] [place] (test code = 2804) [address]
[2020-07-20 13:59] LABS: Absolute Lymphocytes (CBC) 2.3 K/uL (0.7-4.9); Basophils % 0.9 % (0-1.3); Hematocrit 46.8 % (39.6-49.0); MPV 9.3 fL (7.6-11.3); RBC Red Blood Cell Count 5.16 M/uL (4.33-5.43)
[2020-07-20] MEDS ORDERED: GABAPENTIN 300 MG CAP ONE (13:59)
[2020-07-20] MEDS ORDERED: NA CHLORIDE 0.9% 1,000 ML ONE (14:00)
[2020-07-20] MEDS ORDERED: LORazepam 2 MG/ML VIAL ONE (14:00)
[2020-07-20] MEDS ORDERED: FOSPHENYTOIN PE 500 MG/10 ML VIAL ONE (14:01)
[2020-07-20] MEDS ORDERED: NA CHLORIDE 0.9% 50 ML IV ONE (14:02)
[2020-07-20 14:05] LABS: Protime INR 1.07
[2020-07-20 14:14] LABS: Barbiturates NEGATIVE (NEGATIVE); Benzodiazepines POSITIVE (NEGATIVE); Cocaine NEGATIVE (NEGATIVE); METHAMPHETAM NEGATIVE (NEGATIVE); Methadone NEGATIVE (NEGATIVE); Opiates NEGATIVE (NEGATIVE); Phencyclidine NEGATIVE (NEGATIVE); THC Cannibis POSITIVE (NEGATIVE)
[2020-07-20 14:23] LABS: Urine Blood 1+ (NEG); Urine Glucose NEGATIVE (NEG); Urine Protein 1+ (NEG)
[2020-07-20 14:24] LABS: ALT/SGPT 23 U/L (12-78); AST/SGOT 16 U/L (15-37); Albumin 4.6 g/dL (3.4-5.0); Alkaline Phosphatase 130 U/L (45-117); BUN Blood Urea Nitrogen 13 mg/dL (7-18); Bicarbonate 24 mmol/L (21-32); Bilirubin Direct 0.2 mg/dL (0-0.2); Bilirubin Total 0.9 mg/dL (0.2-1.0); Glucose Level 101 mg/dL (74-106); Protein, Total 8.8 g/dL (6.4-8.2); Sodium Level 139 mmol/L (136-145)
[2020-07-20] MEDS ORDERED: lamoTRIgine 100 MG TAB PO ONE (15:00)
--- NOTE | 2020-07-20 15:08 | ER ---
Nurse's Notes 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 ca1 Reports not feeling well for 2 days, seizure episode yesterday with fall hitting head and nose. Reports nose bleed today, headache and nausea. Drowsy \T\ Ox4. Coronavirus screen: Client denies travel out of the [place] in the last 14 days. At this time, the client does not indicate any symptoms associated with coronavirus-19. Ebola Screen: Patient negative for fever greater than or equal to 101.5 degrees Fahrenheit, and additional compatible Ebola Virus Disease symptoms Patient denies exposure to infectious person. Patient denies travel to an Ebola-affected area in the 21 days before illness onset. No symptoms or risks identified at this time. Initial Sepsis Screen: Does the patient meet any 2 criteria? No. Patient's initial sepsis screen is negative. Does the patient have a suspected source of infection? No. Patient's initial sepsis screen is negative. Risk Assessment: Do you want to hurt yourself or someone else? Patient reports no desire to harm self or others. Onset of symptoms was July 20, 2020. 13:30 Method Of Arrival: Wheelchair ca1 13:30 Acuity: KEN 2 ca1 13:56 Care prior to arrival: None. jl7 Triage Assessment: 13:30 General: Appears in no apparent distress. uncomfortable, Behavior is cooperative, jl7 anxious, crying. Pain: Complains of pain in WHITLOCK. Neuro: Level of Consciousness is awake, alert, obeys commands, Oriented to person, place, time, situation. Cardiovascular: Patient's skin is warm and dry. Respiratory: Airway is patent Respiratory effort is even, unlabored, Respiratory pattern is regular, symmetrical. Derm: Skin is pink, warm \T\ dry. Historical: - Allergies: 15:23 No Known Allergies; jl7 - Home Meds: 15:23 diazepam 10 mg Oral tab 1 tab daily prn for Acute Repetitive Seizures, Anxiety jl7 [Active]; fluoxetine 40 mg Oral cap 1 cap once daily [Active]; gabapentin 300 mg Oral cap 1 cap TID prn [Active]; lamotrigine 200 mg Oral tab 2 tabs once daily [Active]; topiramate 50 mg Oral CSpX 3 caps twice a day [Active]; zolpidem 12.5 mg Oral TbMP 1 tab qhs prn [Active]; Ambien 10 mg Oral tab 1 tab once daily [Active]; venlafaxine 75 mg oral tab 1 tab 2 times per day [Active]; clonazepam 0.5 mg Oral tab [Active]; - PMHx: 15:23 Depression; Headaches; Seizures; status epilepticus; jl7 - Immunization history:: Adult Immunizations unknown. - Social history:: Smoking status: Patient denies any tobacco usage or history of. - Family history:: not pertinent. Screenin:11 Abuse screen: Denies threats or abuse. Nutritional screening: No deficits noted. ll2 Tuberculosis screening: No symptoms or risk factors identified. Fall Risk Fall in past 12 months (25 points). IV access (20 points). Mental Status- Oriented to own ability (0 pts). Total Adams Fall Scale indicates High Risk Score (45 or more points). Fall prevention measures have been instituted. Side Rails Up X 2 Placed Close to Nursing Station. Assessment: 14:08 General: Appears in no apparent distress. Behavior is calm, cooperative, appropriate ll2 for age, drowsy. Pain: Denies pain. Neuro: Level of Consciousness is awake, alert, obeys commands, Pt is orientated, but seems to have a hard time remembering details about seizure from yesterday, and is confused about meds. Pt is awake at this time, but appears to sleepy. . Oriented to person, place, time, situation. Cardiovascular: Capillary refill < 3 seconds Patient's skin is warm and dry. Respiratory: Airway is patent Respiratory effort is even, unlabored, Respiratory pattern is regular, symmetrical. GI: No signs and/or symptoms were reported involving the gastrointestinal system. : No signs and/or symptoms were reported regarding the genitourinary system. EENT: No signs and/or symptoms were reported regarding the EENT system. Derm: Skin is intact, is healthy with good turgor, Skin is dry, Skin is pink, warm \T\ dry. Skin temperature is warm. Musculoskeletal: Circulation, motion, and sensation intact. Range of motion: intact in all extremities. 14:13 Neuro: Seizure activity noted at this time. Seizure lasted approximately 3 minutes. ERD ll2 notified and at bedside to assess pt, no new orders received at this time. 14:28 Reassessment: Patient and/or family updated on plan of care and expected duration. Pain ll2 level reassessed. Patient is alert, oriented x 3, equal unlabored respirations, skin warm/dry/pink. Pain: Complains of pain in forehead Pain currently is 7 out of 10 on a pain scale. 15:15 Neuro: Seizure activity noted at this time. Seizure lasted approximately 3 minutes. ERD ll2 notified and at bedside to assess pt. 15:46 Reassessment: Notified Pt's mom at [phone] that he's ready for discharge. Pt's mom kevin reports she's on her way. Vital Signs: 13:30 BP 142 / 107; Pulse 75; Resp 16 S; Temp 98.2(TE); Pulse Ox 99% on R/A; Weight 120.2 kg ca1 (R); Height 5 ft. 11 in. (180.34 cm) (R); 14:22 BP 134 / 70; Pulse 102; Resp 14; Temp 98.2; Pulse Ox 99% on R/A; ll2 15:18 BP 148 / 104; Pulse 118; Resp 14; Pulse Ox 99% on R/A; ll2 13:30 Body Mass Index 36.96 (120.20 kg, 180.34 cm) ca1 Nino Coma Score: 13:30 Eye Response: spontaneous(4). Verbal Response: oriented(5). Motor Response: obeys ca1 commands(6). Total: 15. ED Course: 13:27 Patient arrived in ED. as 13:30 Arm band placed on right wrist. ca1 13:31 Blue Rodriguez MD is Attending Physician. dominik 13:33 Mraía Gregory RN is Primary Nurse. jl7 13:47 Triage completed. ca1 13:57 Urine collected: clean catch specimen, clear, EKG done, by ED staff, reviewed by Blue Rodriguez MD. 13:58 Patient has correct armband on for positive identification. Placed in gown. Bed in low mh5 position. Call light in reach. Side rails up X2. Seizure precautions initiated. Warm blanket given. laboratory monitor on. Pulse ox on. NIBP on. 14:11 Inserted saline lock: 20 gauge in right wrist, using aseptic technique. inserted by ll2 ESCOBAR Rabago. 15:09 Luther Christensen MD is Referral Physician. [facility] 16:16 No provider procedures requiring assistance completed. IV discontinued, intact, jl7 bleeding controlled, No redness/swelling at site. Pressure dressing applied. Administered Medications: 13:37 CANCELLED (Duplicate Order): Keppra 1000 mg IV at per protocol once [facility] 14:06 Dru grams of (Fosphenytoin 1 grams, NS 0.9% 50 ml) Route: IVPB; Site: right wrist; ll2 14:35 Follow up: Response: No adverse reaction; IV Status: Completed infusion ll2 14:06 Drug: Gabapentin 300 mg Route: PO; ll2 14:36 Follow up: Response: No adverse reaction ll2 14:07 Drug: Ativan 2 mg Route: IVP; Site: right wrist; ll2 14:36 Follow up: Response: No adverse reaction ll2 14:07 Drug: NS 0.9% 1000 ml Route: IV; Rate: 1 bolus; Site: right wrist; ll2 15:38 Follow up: Response: No adverse reaction; Rate change bolus; IV Status: Completed ll2 infusion 15:38 Follow up: IV Intake: 1000ml jl7 15:18 Drug: LaMICtal 200 mg Route: PO; ll2 15:18 Follow up: Response: No adverse reaction ll2 Intake: 15:38 IV: 1000ml; Total: 1000ml. jl7 Outcome: 15:08 Discharge ordered by . [facility] 16:16 Discharged to home via wheelchair, with family. jl7 16:16 Condition: stable 16:16 Discharge instructions given to patient, family, Instructed on discharge instructions, follow up and referral plans. medication usage, Demonstrated understanding of instructions, follow-up care, medications, Prescriptions given X 1. 16:19 Patient left the ED. jl7 Signatures: Blue Rodriguez MD MD cha Martinez, Amelia as Martinez, Maria [facility] María Gregory RN RN jl7 Selam Chao RN RN [facility] [place], Joana, RN RN ll2
--- NOTE | 2020-07-20 15:08 | EDPHYS ---
Physician Documentation [facility] Name: Alfie Zavala Age: 30 yrs Sex: Male : 1990 Arrival Date: 07/20/2020 Time: 13:27 Bed 3 Private MD: Blue Baptiste HPI: 07/20 14:58 This 30 yrs old Male presents to ER via Wheelchair with complaints of Seizure. dominik 14:58 The patient presents with a history of multiple seizures, an unknown number. Character dominik of seizure(s): Loss of consciousness: the patient experienced loss of consciousness, Motor activity: generalized, Incontinence: none, Apnea: the patient did not experience apnea, Circulation: the patient did not experience evidence of pulse disturbance. Seizure onset: just prior to arrival, this morning. Context: the seizure(s) was witnessed, by family. Seizure Hx: Cause: unknown, Last seizure: The patient's last seizure is unknown. Associated injury: The patient did not suffer any apparent associated injury. The patient has experienced similar episodes in the past, several times. Historical: - Allergies: 15:23 No Known Allergies; jl7 - Home Meds: 15:23 diazepam 10 mg Oral tab 1 tab daily prn for Acute Repetitive Seizures, Anxiety jl7 [Active]; fluoxetine 40 mg Oral cap 1 cap once daily [Active]; gabapentin 300 mg Oral cap 1 cap TID prn [Active]; lamotrigine 200 mg Oral tab 2 tabs once daily [Active]; topiramate 50 mg Oral CSpX 3 caps twice a day [Active]; zolpidem 12.5 mg Oral TbMP 1 tab qhs prn [Active]; Ambien 10 mg Oral tab 1 tab once daily [Active]; venlafaxine 75 mg oral tab 1 tab 2 times per day [Active]; clonazepam 0.5 mg Oral tab [Active]; - PMHx: 15:23 Depression; Headaches; Seizures; status epilepticus; jl7 - Immunization history:: Adult Immunizations unknown. - Social history:: Smoking status: Patient denies any tobacco usage or history of. - Family history:: not pertinent. ROS: 14:58 Constitutional: Negative for fever, chills, and weight loss, Eyes: Negative for injury, dominik pain, redness, and discharge, ENT: Negative for injury, pain, and discharge, Neck: Negative for injury, pain, and swelling, Cardiovascular: Negative for chest pain, palpitations, and edema, Respiratory: Negative for shortness of breath, cough, wheezing, and pleuritic chest pain, Abdomen/GI: Negative for abdominal pain, nausea, vomiting, diarrhea, and constipation, Back: Negative for injury and pain, : Negative for injury, bleeding, discharge, and swelling, MS/Extremity: Negative for injury and deformity, Skin: Negative for injury, rash, and discoloration, Psych: Negative for depression, anxiety, suicide ideation, homicidal ideation, and hallucinations, Allergy/Immunology: Negative for hives, rash, and allergies, Endocrine: Negative for neck swelling, polydipsia, polyuria, polyphagia, and marked weight changes. 14:58 Neuro: Positive for seizure activity, known pseudoseizures. Exam: 14:58 Constitutional: This is a well developed, well nourished patient who is awake, alert, dominik and in no acute distress. Head/Face: Normocephalic, atraumatic. Eyes: Pupils equal round and reactive to light, extra-ocular motions intact. Lids and lashes normal. Conjunctiva and sclera are non-icteric and not injected. Cornea within normal limits. Periorbital areas with no swelling, redness, or edema. ENT: Nares patent. No nasal discharge, no septal abnormalities noted. Tympanic membranes are normal and external auditory canals are clear. Oropharynx with no redness, swelling, or masses, exudates, or evidence of obstruction, uvula midline. Mucous membranes moist. Neck: Trachea midline, no thyromegaly or masses palpated, and no cervical lymphadenopathy. Supple, full range of motion without nuchal rigidity, or vertebral point tenderness. No Meningismus. Chest/axilla: Normal chest wall appearance and motion. Nontender with no deformity. No lesions are appreciated. Cardiovascular: Regular rate and rhythm with a normal S1 and S2. No gallops, murmurs, or rubs. Normal PMI, no JVD. No pulse deficits. Respiratory: Lungs have equal breath sounds bilaterally, clear to auscultation and percussion. No rales, rhonchi or wheezes noted. No increased work of breathing, no retractions or nasal flaring. Abdomen/GI: Soft, non-tender, with normal bowel sounds. No distension or tympany. No guarding or rebound. No evidence of tenderness throughout. Back: No spinal tenderness. No costovertebral tenderness. Full range of motion. Male : Normal genitalia with no discharge or lesions. Skin: Warm, dry with normal turgor. Normal color with no rashes, no lesions, and no evidence of cellulitis. MS/ Extremity: Pulses equal, no cyanosis. Neurovascular intact. Full, normal range of motion. Psych: Awake, alert, with orientation to person, place and time. Behavior, mood, and affect are within normal limits. 14:58 Neuro: Orientation: is normal, Mentation: is normal, appropriate for stated age, no acute changes, Memory: is normal, appropriate for stated age, no acute changes, Cranial nerves: grossly normal, is grossly normal based on the patient's age, no acute changes, Cerebellar function: is grossly normal, is grossly normal based on the patient's age, no acute changes, Motor: is normal, is grossly normal based on the patient's age, no acute changes, moves all fours, Sensation: no obvious gross deficits, appropriate no acute changes, Gait: appropriate for age, seizure activity, grand mal type is displayed, pseudo seizures hx , after seizure in ed thought tonic clonic, no post ictal state, alert and oriented x4. Vital Signs: 13:30 BP 142 / 107; Pulse 75; Resp 16 S; Temp 98.2(TE); Pulse Ox 99% on R/A; Weight 120.2 kg ca1 (R); Height 5 ft. 11 in. (180.34 cm) (R); 14:22 BP 134 / 70; Pulse 102; Resp 14; Temp 98.2; Pulse Ox 99% on R/A; ll2 15:18 BP 148 / 104; Pulse 118; Resp 14; Pulse Ox 99% on R/A; ll2 13:30 Body Mass Index 36.96 (120.20 kg, 180.34 cm) ca1 [place] Coma Score: 13:30 Eye Response: spontaneous(4). Verbal Response: oriented(5). Motor Response: obeys ca1 commands(6). Total: 15. MDM: 13:31 Patient medically screened. dominik 15:04 Differential diagnosis: cerebral vascular accident, drug overdose, cardiac arrhythmia. dominik Data reviewed: vital signs, nurses notes, lab test result(s), EKG, radiologic studies, CT scan. Data interpreted: threat monitoring analyst: rate is 102 beats/min, rhythm is regular, Pulse oximetry: on room air is 99 %. Test interpretation: by ED physician or midlevel provider: ECG. Counseling: I had a detailed discussion with the patient and/or guardian regarding: the historical points, exam findings, and any diagnostic results supporting the discharge/admit diagnosis, lab results, radiology results, the need for outpatient follow up, for definitive care, a neurologist. ED course: case discussed with the patient, need for follow up with dr arias, neurology. 15:09 ED course: explained to patient not to drive until cleared by his neurologist in [facility]. 07/20 13:33 Order name: Acetaminophen [facility] 07/20 13:33 Order name: Basic Metabolic Panel [facility] 07/20 13:33 Order name: CBC with Diff; Complete Time: 14:56 [facility] 07/20 13:33 Order name: ETOH Level; Complete Time: 14:56 [facility] 07/20 13:33 Order name: Hepatic Function [facility] 07/20 13:33 Order name: PT-INR; Complete Time: 14:56 [facility] 07/20 13:33 Order name: Ptt, Activated; Complete Time: 14:56 [facility] 07/20 13:33 Order name: Salicylate; Complete Time: 14:56 [facility] 07/20 13:33 Order name: Urine Drug Screen; Complete Time: 14:56 [facility] 07/20 14:10 Order name: Urine Dipstick--Ancillary (enter results); Complete Time: 14:56 07/20 14:58 Order name: LAB Misc. Test [facility] 07/20 15:01 Order name: Phenytoin (Dilantin) Level [facility] 07/20 13:33 Order name: Seizure Precautions; Complete Time: 13:56 [facility] 07/20 13:33 Order name: EKG; Complete Time: 13:34 [facility] 07/20 13:33 Order name: EKG - Nurse/Tech; Complete Time: 13:56 [facility] 07/20 13:33 Order name: IV Saline Lock; Complete Time: 13:56 [facility] 07/20 13:33 Order name: Labs collected and sent; Complete Time: 13:56 [facility] 07/20 13:33 Order name: Urine Dipstick-Ancillary (obtain specimen); Complete Time: 13:56 [facility] Administered Medications: 13:37 CANCELLED (Duplicate Order): Keppra 1000 mg IV at per protocol once dominik 14:06 Dru grams of (Fosphenytoin 1 grams, NS 0.9% 50 ml) Route: IVPB; Site: right wrist; ll2 14:35 Follow up: Response: No adverse reaction; IV Status: Completed infusion ll2 14:06 Drug: Gabapentin 300 mg Route: PO; ll2 14:36 Follow up: Response: No adverse reaction ll2 14:07 Drug: Ativan 2 mg Route: IVP; Site: right wrist; ll2 14:36 Follow up: Response: No adverse reaction ll2 14:07 Drug: NS 0.9% 1000 ml Route: IV; Rate: 1 bolus; Site: right wrist; ll2 15:38 Follow up: Response: No adverse reaction; Rate change bolus; IV Status: Completed ll2 infusion 15:38 Follow up: IV Intake: 1000ml jl7 15:18 Drug: LaMICtal 200 mg Route: PO; ll2 15:18 Follow up: Response: No adverse reaction ll2 Disposition: 07/20/20 15:08 Discharged to Home. 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 - Condition is Stable. - Discharge Instructions: Nonepileptic Seizures, Seizure, Adult, Seizure, Adult, [id number]. - Prescriptions for Dilantin Kapseal 100 mg Oral Capsule - take 1 capsule by ORAL route every 8 hours; 30 capsule. - Medication Reconciliation Form, Thank You Letter, Antibiotic Education, Prescription Opioid Use form. - Follow up: Private Physician; When: 2 - 3 days; Reason: Recheck today's complaints, Continuance of care, Re-evaluation by your physician. Follow up: Luther Arias MD; When: 2 - 3 days; Reason: Recheck today's complaints, Continuance of care, Re-evaluation by your physician. - Problem is new. - Symptoms have improved. Signatures: Dispatcher [employer] Blue Marx MD MD cha Leal, Jahala, RN RN jl7 Joana Bautista RN RN ll2 Corrections: (The following items were deleted from the chart) 13:37 13:33 Keppra 1000 mg IV at per protocol once ordered. [facility] 15:01 14:58 Miscellaneous Test Lab ordered. EDMN EDMS 15:09 15:08 07/20/2020 15:08 Discharged to Home. Impression: Epileptic seizures related to dominik external causes, not intractable - pseudseizures. Condition is Stable. Forms are Medication Reconciliation Form, Thank You Letter, Antibiotic Education, Prescription Opioid Use. Follow up: Private Physician; When: 2 - 3 days; Reason: Recheck today's complaints, Continuance of care, Re-evaluation by your physician. Problem is new. Symptoms have improved. dominik 16:19 15:09 07/20/2020 15:08 Discharged to Home. Impression: Epileptic seizures related to jl7 external causes, not intractable - pseudseizures. Condition is Stable. Forms are Medication Reconciliation Form, Thank You Letter, Antibiotic Education, Prescription Opioid Use. Follow up: Private Physician; When: 2 - 3 days; Reason: Recheck today's complaints, Continuance of care, Re-evaluation by your physician. Follow up: Luther Arias; When: 2 - 3 days; Reason: Recheck today's complaints, Continuance of care, Re-evaluation by your physician. Problem is new. Symptoms have improved. dominik
[2020-07-20 15:11] LABS: Phenytoin (Dilantin) Level 1.8 ug/mL (10.0-20.0)
[2020-07-21 15:34] VITALS: TEMP 98.2; O2SAT 99
[2020-07-21 15:36] VITALS: BP 148/104
--- NOTE | 2020-07-23 05:23 | EKG ---
Test Date: 2020-07-20 Test Time: 13:37:29 Steam Brush Operator: BLANE MEASUREMENT RESULTS: Intervals: Rate: 73 MA: 138 QRSD: 80 QT: 348 QTc: 383 [place]: P: 33 MA: 138 QRS: 20 T: 31 INTERPRETIVE STATEMENTS: Normal sinus rhythm Normal ECG Compared to ECG 02/07/2020 07:44:33 No significant changes Electronically Signed On 07-23-20 05:20:46 CDT by Jamey Pace
== END 2020-07-20 16:19 | disposition home or self-care (01) ==
LOC: ER 13:26
DX: G40.509 Epileptic seizures related to external causes, not intractable, without status epilepticus (principal); F32.9 Major depressive disorder, single episode, unspecified; G40.909 Epilepsy, unspecified, not intractable, without status epilepticus
CPT/HCPCS: 36415; 80048; 80076; 80185; 80307; 80320; 80329; 81003; 85025; 85610; 85730; 93005; 96361; 96365; 96375; 99284; J7030; Q2009

== ENCOUNTER 2020-07-30 04:37 | Emergency (ER) | payer SELFPAY ==
--- OUTSIDE RECORDS SUMMARY | 2020-07-30 04:39 | XMS REPORT | Clinical Summary ---
:1990 Author Organization [facility] Address [address] [place] [address] Care Team Providers Name Role Phone Andrew [...] Not on file Results Not on fileafter 07/30/2019 Insurance Payer Benefit Plan / Subscriber ID Type Phone Address Group [employer]UE [employer]OSS/[employer]UE [employer]BS PPO POS EPO xxxxxxxxxxxx PPO [phone] [address] [place] [address] Advance Directives For more information, please contact:[address] [phone] Code Status Date Activated Date Inactivated Comments Full Code 09/10/2018 7:22 AM This code status was determined by: Patient Full Code 08/10/2018 1:35 AM 08/13/2018 8:26 PM This code status was determined by: Patient
--- OUTSIDE RECORDS SUMMARY | 2020-07-30 04:40 | XMS REPORT | Continuity of Care Document ---
:1990 Author Organization [facility] t Address 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 00 Center depressive depressive disorder disorder Suicide Suicide Disease Active [facility] 00 [place] Seizure Seizure Disease Active [facility] 08[facility]10 [facility] 00 [place] Allergies, Adverse Reactions, Alerts Allergy Allergy Status Severity Reaction(s) Onset Inactive Treating Comm ents Source Name Type Date Date Clinician Lorazepa Drug Active Hives [facility] Allergy 08[facility] 00 [place] Social History Social Habit Start Date Stop Date Quantity Comments Source Sex Assigned At [facility] Smoking Status Start Date Stop Date Source Never smoker [facility] edical [place] Medications Ordered Filled Start Stop Current Ordering [...] MG capsule 16:33: daily. Medic al 30 [place] phenytoin 2017-11 Yes 200mg [id number] Take [address] [facility] [address] (DILANTIN) 0-28 [id number] mg by Sherrill kes - 100 MG [...] 1095) No growth in 5 days BLOOD [id number] 18:00:00 Test Item Value Reference Range Interpretation Comments CULTURE (BEAKER) (test No growth in 5 days code = 1095) SPUTUM CULTURE + GRAM [id number] 14:21:00 Test Item Value Reference Range Interpretation Comments CULTURE (BEAKER) 4+ Normal respiratory (test code = 1095) beatrice present GRAM STAIN RESULT 1+ gram positive rods (BEAKER) (test code = 1123) GRAM STAIN RESULT 1+ gram negative cocci (BEAKER) (test code = 34650) GRAM STAIN RESULT 2+ gram positive cocci (BEAKER) (test code = in chains 98837) GRAM STAIN RESULT 1+ gram positive cocci (BEAKER) (test code = in clusters 440598) RAD, CHEST, 1 VIEW, NON [id number] 07:27:00Reason for exam:->post intubationShould this be performed [...] MDReport Verified Date/Time: 09/13/2018 07:27:51 Reading Location: [facility] Radiology Reading Room PHOSPHORUS 2018-09-13 04:44:00 Test Item Value Reference Range Interpretation Comments PHOSPHORUS (BEAKER) (test code = 2.9 mg/dL 2.3-4.7 604) Check Serum Phosphorus level 4 hours after IV phosphorus replacement or 8 hours after PO replacementcompleted.[id number] 04:44:00 Test Item Value Reference Range Interpretation Comments MAGNESIUM (BEAKER) (test code = 2.2 mg/dL 1.6-2.6 627) Check Serum Phosphorus level 4 hours after IV phosphorus replacement or 8 hours after PO replacementcompleted.BASIC METABOLIC [id number] 04:44:00 Test Item Value Reference Range Interpretation [...] after PO replacementcompleted.CBC W/PLT COUNT & AUTO [id number] 04:19:00 Test Item Value Reference Range Interpretation [...] 0-1 PERCENT (BEAKER) (test code = 2801) [id number] 18:41:00 Test Item Value Reference Range Interpretation Comments POTASSIUM (BEKIMBERLY) (test code = 3.9 meq/L 3.5-5.1 379) Check Serum Potassium level 2 hours after oral potassium replacement completed or 30 min after intravenous potassium replacement.[id number] 18:41:00 Test Item Value Reference Range Interpretation Comments MAGNESIUM (MAXIMINO) (test code = 2.9 mg/dL 1.6-2.6 H 627) Check Serum Potassium level 2 hours after oral potassium replacement completed or 30 min after intravenous potassium replacement.EEG MONITORING WITH VIDEO RECORDING EACH 24 [id number] 14:34:00billing for 09/12 AMDATE OF REPORT: 09/12/2018 ACC: [id number] Start time: 09/11 at 0920 AM Stop time: 09/12 at 11:11 AM ICD-10: R56.9 CPT Code: 94589 HISTORY: 28 year old male p/w increased [...] Fellow Davis Cintron MD, PhD Attending Neurophysiologist [facility] [id number] 12:15:00 Test Item Value Reference Range Interpretation Comments MAGNESIUM (BEAKER) (test code = 1.9 mg/dL 1.6-2.6 627) Check Serum Phosphorus level 4 hours after IV phosphorus replacement or 8 hours after PO replacementcompleted.Check Serum Potassium level 2 hours after oral potassium replacement completed or 30 min after intravenous potassium replacement.[id number] 12:15:00 Test Item Value Reference Range Interpretation Comments PHOSPHORUS (BEAKER) (test code = 2.0 mg/dL 2.3-4.7 L 604) Check Serum Phosphorus level 4 hours after IV phosphorus replacement or 8 hours after PO replacementcompleted.Check Serum Potassium level 2 hours after oral potassium replacement completed or 30 min after intravenous potassium replacement.[id number] 12:14:00 Test Item Value Reference Range Interpretation Comments POTASSIUM (BEAKER) (test code = 3.6 meq/L 3.5-5.1 379) Check Serum Phosphorus level 4 hours after IV phosphorus replacement or 8 hours after PO replacementcompleted.Check Serum Potassium level 2 hours after oral potassium replacement completed or 30 min after intravenous potassium replacement.CALCIUM, [id number] 11:49:00 Test Item Value Reference Range Interpretation Comments CALCIUM IONIZED (BEAKER) (test 1.09 mmol/L 1.12-1.27 L code = 698) PH, BLOOD (BEAKER) (test code = 7.46 1810) Check serum Ionized Calcium level after 4 hours after IV Calcium replacement. URINE [id number] 08:18:00 Test Item Value Reference Range Interpretation Comments CULTURE (BEAKER) (test code = 1095) No growth [id number] 03:59:00 Test Item Value Reference Range Interpretation Comments PHOSPHORUS (BEAKER) (test code = 2.5 mg/dL 2.3-4.7 604) Check Serum Phosphorus level 4 hours after IV phosphorus replacement or 8 hours after PO replacementcompleted.[id number] 03:59:00 Test Item Value Reference Range Interpretation Comments MAGNESIUM (BEAKER) (test code = 2.1 mg/dL 1.6-2.6 627) Check Serum Phosphorus level 4 hours after IV phosphorus replacement or 8 hours after PO replacementcompleted.BASIC METABOLIC [id number] 03:59:00 Test Item Value Reference Range Interpretation [...] after PO replacementcompleted.CBC W/PLT COUNT & AUTO [id number] 03:41:00 Test Item Value Reference Range Interpretation [...] PERCENT (BEAKER) (test code = 2801) POCT-GLUCOSE [id number] 23:55:00 Test Item Value Reference Range Interpretation Comments POC-GLUCOSE METER 94 mg/dL 70-110 TESTED AT [facility] [address] (BEAKER) (test code = [place] [address] 1538) [id number] 18:08:00 Test Item Value Reference Range Interpretation Comments POTASSIUM (BEAKER) (test code = 3.4 meq/L 3.5-5.1 L 379) Check Serum Potassium level 2 hours after oral potassium replacement completed or 30 min after intravenous potassium replacement.EEG MONITORING WITH VIDEO RECORDING EACH 24 [id number] 09:23:00DATE OF REPORT: 09/11/2018ACC: [id number]: Start time: 09/10 at 15:05Stop time: 10/28 at 09:20 AMICD- 10: R56.9CPT Code: 66079 HISTORY: 28 yo male with h/o seizures [...] MDNeurophysiology Fellow Joao Blum M.D., FACNSProfessor of NeurologyCommunity Hospital of Huntington ParkDirector, [facility] Epilepsy [facility] Neurophysiology Lab RAD, CHEST, 1 VIEW, NON [...] MDReport Verified Date/Time: 09/11/2018 07:32:46 Reading Location: [facility] C013V Neuro Reading Room POCT-GLUCOSE [id number] 06:30:00 Test Item Value Reference Range Interpretation Comments POC-GLUCOSE METER 111 mg/dL 70-110 H TESTED AT [facility] [address] (BEAKER) (test code = [place] 1538) [address] BASIC METABOLIC [id number] 06:06:00 Test Item Value Reference Range Interpretation [...] PATIEN TS. CBC W/PLT COUNT & AUTO [id number] 03:47:00 Test Item Value Reference Range Interpretation [...] (BEAKER) (test code = 2801) BLOOD GAS, [id number] 03:32:00 Test Item Value Reference Range Interpretation [...] (test code = 1819) 40.0 % POCT-GLUCOSE [id number] 01:01:00 Test Item Value Reference Range Interpretation Comments POC-GLUCOSE METER 91 mg/dL 70-110 TESTED AT [facility] [address] ([facility]) (test code = [place] [address] 1538) TROPONIN [id number] 17:18:00 Test Item Value Reference Range Interpretation [...] neurological disease, and persistent tachyarrhythmia.EEG AWAKE AND [id number] 15:50:00 Reason for exam:->Status epilepticus, c EEG for evaluation of subclinical seizures Should this beperformed at the bedside?->YesDATE OF REPORT: 09/10/2018ACC: [id number]: [id number] time: 14:47Stop time: 15:04ICD-10: R56.9CPTCode: 13534 HISTORY: 28 yo male with h/o seizures [...] MDNeurophysiology Fellow Joao Blum M.D., FACNSProfessor of NeurologyCommunity Hospital of Huntington ParkDirector, [facility] Epilepsy [place] BLOOD GAS, [id number] 12:32:00 Test Item Value Reference Range Interpretation [...] 1819) 40.0 % RAD, ABDOMEN/KUB, 1 VIEW [id number] 12:12:00Reason for exam:->corpakShould this be performed at the bedside?->YesFINAL REPORT AP abdomen, three images HISTORY: Feeding tube COMPARISON: 11/01/2015 IMPRESSION:Feeding tube present with tip in abdomen. Bowel gas pattern appears grossly nonobstructive. Signed: Edgardo Guzman MDReport Verified Date/Time: 09/10/2018 12:12:56 Reading Location: [facility] B1 C013X Ortho Consult Reading Room , CHEST, 1 VIEW, NON [id number] 10:40:00Reason for exam:->post intubationShould this be performed at the bedside?->YesFINAL REPORT AP chest HISTORY: Intubation COMPARISON: None IMPRESSION:Endotrac heal tube in satisfactory position. Right IJ central venous catheter at mid SVC. Heart size normal. Mild perihilar atelectasis. Lungs otherwise clear. No pneumothorax. Signed: Edgardo Guzman MDReport Verified Date/Time: 09/10/2018 10:40:47 Reading Location: [facility] C013X Ortho Consult Reading Room El ectronically signed by: EDGARDO GUZMAN M.D. on 09/10/2018 10:40 AM TROPONIN [id number] 09:21:00 Test Item Value Reference Range Interpretation [...] failure, acidosis, acute neurological disease, and persistent tachyarrhythmia.[id number] 09:19:00 Test Item Value Reference Range Interpretation Comments CARBAMAZEPINE LEVEL (BEAKER) (test 2.2 ug/mL 4.0-12.0 L code = 696) PHENYTOIN LEVEL, [id number] 09:18:00 Test Item Value Reference Range Interpretation Comments PHENYTOIN (DILANTIN) (BEAKER) 10.8 ug/mL 10.0-20.0 (test code = 605) [id number] 09:03:00 Test Item Value Reference Range Interpretation Comments PARTIAL THROMBOPLASTIN TIME 27.5 seconds 22.5-36.0 (BEAKER) (test code = 760) PROTHROMBIN [id number] 09:02:00 Test Item Value Reference Range Interpretation Comments PROTIME (BEAKER) (test code = 14.6 seconds 11.7-14.7 759) INR (BEAKER) (test code = 370) 1.1 <=5.9 RECOMMENDED COUMADIN/WARFARIN INR THERAPY RANGESSTANDARD DOSE: 2.0 - 3.0 Includes: PROPHYLAXIS forvenous thrombosis, systemic embolization; TREATMENT for venous thrombosis and/or pulmonary embolus.HIGH RISK: Target INR is 2.5-3.5 for patients with mechanical heart valves.PLATELET [id number] 08:53:00 Test Item Value Reference Range Interpretation Comments PLATELET COUNT (BEAKER) (test 184 K/CU MM 150-450 code = 756) BASIC METABOLIC [id number] 07:07:00 Test Item Value Reference Range Interpretation [...] 29-200 H code = 380) BASIC METABOLIC [id number] 05:19:00 Test Item Value Reference Range Interpretation [...] U/L 29-200 H code = 380) POCT-GLUCOSE [id number] 17:02:00 Test Item Value Reference Range Interpretation Comments POC-GLUCOSE METER 93 mg/dL 70-110 TESTED AT [facility] [address] (BEAKER) (test code = [place] [address] 1538) [id number] 04:54:00 Test Item Value Reference Range Interpretation Comments MAGNESIUM (BEAKER) (test code = 2.1 mg/dL 1.6-2.6 627) BASIC METABOLIC [id number] 04:54:00 Test Item Value Reference Range Interpretation [...] H code = 380) EEG AWAKE AND [id number] 16:50:00Reason for exam:->seizure disorder Neurophysiology Electroencephalogram Report DATE OF REPORT: 08/10/18Date(s) of Study: 08/10/2018ACC: [id number]: [id number] time: 1517 hrsStop time: 1537 hrsICD-10: R56.9 Unspecified ConvulsionsCPT Code: 22399 EEG: awake and drowsy <40 min HISTORY: [...] Fellow Shamir Najera MD, MSClinical Neurophysiology/Epilepsy Attending [facility] Neurophysiology Service URINALYSIS W/ [id number] 05:20:00 Test Item Value Reference Range Interpretation [...] 0 /HPF SOURCE(BEAKER) (test code = 2795) [id number] 03:17:00 Test Item Value Reference Range Interpretation Comments CARBAMAZEPINE LEVEL (BEAKER) (test < ug/mL 4.0-12.0 L code = 696) [id number] 02:33:00 Test Item Value Reference Range Interpretation Comments PHOSPHORUS (BEAKER) (test code = 2.8 mg/dL 2.3-4.7 604) [id number] 02:33:00 Test Item Value Reference Range Interpretation Comments MAGNESIUM (BEAKER) (test code = 2.2 mg/dL 1.6-2.6 627) BASIC METABOLIC [id number] 02:33:00 Test Item Value Reference Range Interpretation [...] APPLICABLE FOR DIALYSIS PATIEN TS. HEPATIC FUNCTION [id number] 02:33:00 Test Item Value Reference Range Interpretation [...] U/L 29-200 H code = 380) C-REACTIVE [id number] 02:33:00 Test Item Value Reference Range Interpretation Comments C-REACTIVE PROTEIN (BEAKER) (test 0.45 mg/dL 0.00-0.50 code = 676) LACTIC ACID, VENOUS, WHOLE [id number] 02:26:00 Test Item Value Reference Range Interpretation Comments LACTATE BLOOD VENOUS 1.0 mmol/L 0.5-2.2 Specime n slightly (2) (BEAKER) (test hemolyzed code = 2872) Effective 03/18/2016: Units/Reference Range ChangeNew: 0.5-2.2 mmol/L Previous: 5-20 mg/dLCBC W/PLT COUNT & AUTO [id number] 02:05:00 Test Item Value Reference Range Interpretation [...] (BEAKER) (test code = 2801) POCT-BLOOD GASES, [id number] 01:50:00 Test Item Value Reference Range Interpretation Comments TEMP, CELSIUS-POC 37.0 (BEAKER) (test code = 1834) FIO2-POC (BEAKER) TESTED AT [facility] 67 (test code = 1835) [place] [address] PH, ARTERIAL-POC 7.396 7.350-7.450 (BEAKER) (test code [...] L ARTERIAL-POC (BEAKER) (test code = 1841) [id number] 01:50:00 Test Item Value Reference Range Interpretation Comments POC-SODIUM (BEAKER) 140 meq/L 135-148 TESTED A T [facility] 67[address] (test code = 1542) [place] Rodgers [facility] [place] [address] [id number] 01:50:00 Test Item Value Reference Range Interpretation Comments POC-POTASSIUM 3.4 meq/L 3.6-5.5 L TESTED AT [facility] [address] (BEAKER) (test code [place] [address] = 1540) [id number] 01:50:00 Test Item Value Reference Range Interpretation Comments POC-GLUCOSE ([facility]) 105 mg/dL 70-110 TESTED AT [place] [address] (test code = 1855) [place] [address] POCT-CALCIUM [id number] 01:50:00 Test Item Value Reference Range Interpretation Comments POC-CALCIUM IONIZED 1.15 mmol/L 1.12-1.27 TESTED A T [place] [address] ([facility]) (test code = [place] 15[address]) [address] [id number] 01:50:00 Test Item Value Reference Range Interpretation Comments POC-HEMATOCRIT 35 % 40-50 L TESTED AT [place] [address] ([facility]) (test code = [place] [address] 1857) [id number] 01:50:00 Test Item Value Reference Range Interpretation Comments POC-HEMOGLOBIN 11.9 g/dL 13.0-16.8 L TESTED AT [place] [address] ([facility]) (test code [place] = 1856) [id number] AT [place] [address] [place] [facility] [address] POCT-LACTIC ACID, [id number] 01:49:00 Test Item Value Reference Range Interpretation Comments POC-LACTIC ACID, 0.9 mmol/L 0.4-1.3 TESTED AT [place] [address] ARTERIAL ([facility]) [facility] [place] (test code = 2804) [address]
[2020-07-30] MEDS ORDERED: LORazepam 2 MG/ML VIAL ONE ×2 (05:08→05:49)
[2020-07-30 05:15] LABS: Absolute Lymphocytes (CBC) 2.3 K/uL (0.7-4.9); Basophils % 0.6 % (0-1.3); Hematocrit 46.4 % (39.6-49.0); Lymphocytes % 17.7 % (15.3-44.8); MPV 9.7 fL (7.6-11.3); RBC Red Blood Cell Count 5.03 M/uL (4.33-5.43)
[2020-07-30 05:18] LABS: Protime INR 1.09
[2020-07-30] MEDS ORDERED: LEVETIRACETAM 500 MG/5 ML VIAL IV ONE (05:20)
[2020-07-30] MEDS ORDERED: NA CHLORIDE 0.9% 50 ML IV ONE (05:21)
[2020-07-30] MEDS ORDERED: NA CHLORIDE 0.9% 100 ML IV ONE (05:23)
[2020-07-30 05:39] LABS: ALT/SGPT 23 U/L (12-78); AST/SGOT 16 U/L (15-37); Albumin 4.2 g/dL (3.4-5.0); Alkaline Phosphatase 131 U/L (45-117); BUN Blood Urea Nitrogen 10 mg/dL (7-18); Bicarbonate 24 mmol/L (21-32); Bilirubin Direct < 0.1 mg/dL (0-0.2); Bilirubin Total 0.4 mg/dL (0.2-1.0); Glucose Level 101 mg/dL (74-106); Potassium 3.5 mmol/L (3.5-5.1); Protein, Total 8.3 g/dL (6.4-8.2); Sodium Level 139 mmol/L (136-145)
[2020-07-30 06:11] LABS: Phenytoin (Dilantin) Level 3.9 ug/mL (10.0-20.0)
[2020-07-30] MEDS ORDERED: NA CHLORIDE 0.9% 1,000 ML ONE (06:18)
[2020-07-30] MEDS ORDERED: ONDANSETRON 4 MG/2 ML VIAL ONE (06:36)
[2020-07-30 06:42] LABS: Urine Blood TRACE (NEG); Urine Glucose NEGATIVE (NEG); Urine Protein TRACE (NEG); Urine Specific Gravity >1.030 (1.005-1.030); Urine pH 6.5 (5.0-7.0)
[2020-07-30 07:20] LABS: Barbiturates NEGATIVE (NEGATIVE); Benzodiazepines POSITIVE (NEGATIVE); Cocaine NEGATIVE (NEGATIVE); METHAMPHETAM NEGATIVE (NEGATIVE); Methadone NEGATIVE (NEGATIVE); Opiates NEGATIVE (NEGATIVE); Phencyclidine NEGATIVE (NEGATIVE); THC Cannibis POSITIVE (NEGATIVE)
[2020-07-30 07:30] LABS: Phosphorus 2.1 mg/dL (2.5-4.9)
[2020-07-30] MEDS ORDERED: FOSPHENYTOIN PE IV ONE (07:30)
[2020-07-30] MEDS ORDERED: NA CHLORIDE 0.9% IV ONE (07:30)
[2020-07-30] MEDS ORDERED: POTASS/SODIUM PHOSPHATE 1 PKT POWD.PACK PO ONE (08:00)
[2020-07-30] MEDS ORDERED: CLINDAMYCIN 900MG/D5W 900 MG/50 ML IVPB IV ONE (08:09)
--- NOTE | 2020-07-30 08:48 | EDPHYS ---
Physician Documentation [facility] Name: Alfie Zavala Age: 30 yrs Sex: Male : 1990 Arrival Date: 07/30/2020 Time: 04:43 Bed 5 Private MD: ED Physician Blue Rodriguez HPI: 07/30 05:11 This 30 yrs old Male presents to ER via Wheelchair with complaints of Fall mh7 Injury. 05:12 Onset: The symptoms/episode began/occurred today. Associated injuries: The patient mh7 sustained face, contusion, painful injury, swelling. Severity of symptoms: At their worst the symptoms were moderate, earlier today, in the emergency department the symptoms are unchanged. 05:12 Unable to obtain HPI due to Does not remember events, possibly due to seizure episode. mh7 Historical: - Allergies: 04:56 No Known Allergies; bb - Home Meds: 04:56 Ambien 10 mg Oral tab 1 tab once daily [Active]; clonazepam 0.5 mg Oral tab [Active]; bb diazepam 10 mg Oral tab 1 tab daily prn for Acute Repetitive Seizures, Anxiety [Active]; fluoxetine 40 mg Oral cap 1 cap once daily [Active]; gabapentin 300 mg Oral cap 1 cap TID prn [Active]; lamotrigine 200 mg Oral tab 2 tabs once daily [Active]; topiramate 50 mg Oral CSpX 3 caps twice a day [Active]; venlafaxine 75 mg Oral tab 1 tab 2 times per day [Active]; zolpidem 12.5 mg Oral TbMP 1 tab qhs prn [Active]; - PMHx: 04:56 Depression; Headaches; Seizures; status epilepticus; bb - PSHx: 04:56 Unable to obtain; bb - Immunization history:: Adult Immunizations unknown. - Social history:: Smoking status: Patient reports the use of cigarette tobacco products, cigars, Patient uses street drugs, marijuana. ROS: 05:12 Unable to obtain ROS due to mh7 05:12 Constitutional: Negative for fever, chills, and weight loss, ENT: Negative for injury, mh7 pain, and discharge, Neck: Negative for injury, pain, and swelling, Cardiovascular: Negative for chest pain, palpitations, and edema, Respiratory: Negative for shortness of breath, cough, wheezing, and pleuritic chest pain, Abdomen/GI: Negative for abdominal pain, nausea, vomiting, diarrhea, and constipation, Back: Negative for injury and pain, : Negative for injury, bleeding, discharge, and swelling, MS/Extremity: Negative for injury and deformity, Skin: Negative for injury, rash, and discoloration, Psych: Negative for depression, anxiety, suicide ideation, homicidal ideation, and hallucinations, Allergy/Immunology: Negative for hives, rash, and allergies, Endocrine: Negative for neck swelling, polydipsia, polyuria, polyphagia, and marked weight changes, Hematologic/Lymphatic: Negative for swollen nodes, abnormal bleeding, and unusual bruising. Exam: 05:12 Constitutional: This is a well developed, well nourished patient who is awake, alert, mh7 and in no acute distress. 05:12 ENT: Nares patent. No nasal discharge, no septal abnormalities noted. Tympanic membranes are normal and external auditory canals are clear. Oropharynx with no redness, swelling, or masses, exudates, or evidence of obstruction, uvula midline. Mucous membranes moist. Neck: Trachea midline, no thyromegaly or masses palpated, and no cervical lymphadenopathy. Supple, full range of motion without nuchal rigidity, or vertebral point tenderness. No Meningismus. Chest/axilla: Normal chest wall appearance and motion. Nontender with no deformity. No lesions are appreciated. Cardiovascular: Regular rate and rhythm with a normal S1 and S2. No gallops, murmurs, or rubs. Normal PMI, no JVD. No pulse deficits. Respiratory: Lungs have equal breath sounds bilaterally, clear to auscultation and percussion. No rales, rhonchi or wheezes noted. No increased work of breathing, no retractions or nasal flaring. Abdomen/GI: Soft, non-tender, with normal bowel sounds. No distension or tympany. No guarding or rebound. No evidence of tenderness throughout. Back: No spinal tenderness. No costovertebral tenderness. Full range of motion. Skin: Warm, dry with normal turgor. Normal color with no rashes, no lesions, and no evidence of cellulitis. MS/ Extremity: Pulses equal, no cyanosis. Neurovascular intact. Full, normal range of motion. 05:12 Head/face: Noted is ecchymosis, that is mild, of the right lower eyelid, swelling, that is mild, of the right cheek and lower eyelid, tenderness, that is moderate, of the right cheek and lower eyelid. 05:12 Eyes: Pupils: equal, round, and reactive to light and accomodation, Extraocular movements: intact throughout, Conjunctiva: normal, Sclera: no appreciated abnormality, Lids and lashes: ecchymosis, on the right, lower, Visual kaur: are intact, Nystagmus: is not appreciated. 05:12 Neuro: 05:23 Neuro: [facility] 05:24 Neuro: Orientation: to person, Mentation: able to follow commands, Memory: unable to [facility] test, the patient is post-ictal, Cranial nerves: grossly normal, Cerebellar function: unable to test, the patient is post-ictal, Motor: moves all fours, Sensation: is normal, Gait: not tested. seizure activity, is not displayed by the patient, Abnormal movements: there are no abnormal movements. 05:24 Psych: 07:50 ECG was reviewed by the Attending Physician. [facility] Vital Signs: 04:51 BP 131 / 82; Pulse 105; Resp 16 S; Temp 98.6(O); Pulse Ox 100% on R/A; Weight 117.93 kg bb (R); Height 5 ft. 11 in. (180.34 cm) (R); Pain 8/10; 05:29 BP 136 / 86; Pulse 110; Resp 19; Pulse Ox 99% on R/A; ea 06:00 BP 127 / 86; Pulse 117; Resp 20; Pulse Ox 97% on R/A; ea 06:54 BP 108 / 83; Pulse 120; Resp 20; Pulse Ox 98% on R/A; ea 07:49 BP 123 / 65; Pulse 123; Resp 22; Pulse Ox 97% on R/A; tw2 08:46 BP 103 / 69; Pulse 104; Resp 22; Pulse Ox 99% on R/A; tw2 09:11 BP 108 / 61; Pulse 99; Resp 17; Pulse Ox 99% on R/A; tw2 04:51 Body Mass Index 36.26 (117.93 kg, 180.34 cm) bb MDM: 04:52 Patient medically screened. [facility] 07:14 Transition of care: After a detail discussion of the patient's case, care is [facility] transferred to Blue Rodriguez MD. 07:31 Differential diagnosis: abrasion, closed head injury, contusion, fracture, multiple dominik trauma, sprain, strain. Data reviewed: vital signs, nurses notes, lab test result(s), EKG, radiologic studies, CT scan. Data interpreted: quality assurance monitor final: rate is 120 beats/min, rhythm is regular. Test interpretation: by ED physician or midlevel provider: ECG. Counseling: I had a detailed discussion with the patient and/or guardian regarding: the historical points, exam findings, and any diagnostic results supporting the discharge/admit diagnosis, lab results, radiology results, the need for outpatient follow up, for definitive care, a family practitioner, a neurologist. ED course: long discussion with the patient about being compliant, will take meds and follow up. 07/30 04:53 Order name: Acetaminophen; Complete Time: 06:19 mh7 07/30 04:53 Order name: Basic Metabolic Panel; Complete Time: 06:19 7 07/30 04:53 Order name: CBC with Diff; Complete Time: 05:50 mh7 07/30 04:53 Order name: ETOH Level; Complete Time: 05:50 7 07/30 04:53 Order name: Hepatic Function; Complete Time: 06:19 7 07/30 04:53 Order name: PT-INR; Complete Time: 05:50 mh7 07/30 04:53 Order name: Ptt, Activated; Complete Time: 05:50 7 07/30 04:53 Order name: Salicylate; Complete Time: 05:50 7 07/30 04:53 Order name: Urine Drug Screen; Complete Time: 07:30 7 07/30 06:01 Order name: Phenytoin (Dilantin) Level; Complete Time: 06:19 EDMS 07/30 06:40 Order name: Urine Dipstick--Ancillary (enter results); Complete Time: 06:44 mw2 07/30 07:00 Order name: Magnesium; Complete Time: 07:46 mh7 07/30 07:00 Order name: Phosphorus; Complete Time: 07:46 7 07/30 04:53 Order name: EKG; Complete Time: 04:54 mh7 07/30 04:53 Order name: EKG - Nurse/Tech; Complete Time: 04:59 mh7 07/30 04:53 Order name: IV Saline Lock; Complete Time: 04:59 07/30 04:53 Order name: Labs collected and sent; Complete Time: 04:59 [facility] 07/30 04:54 Order name: CT Head C Spine [facility] 07/30 04:54 Order name: CT Facial Bones W/O Con [facility] 07/30 07:47 Order name: Seizure Precautions; Complete Time: 07:50 dominik EC:50 Rate is 107 beats/min. Rhythm is regular. QRS [place] is Normal. [place] interval is normal. dominik QRS interval is normal. QT interval is normal. No Q waves. T waves are Normal. No ST changes noted. Clinical impression: NSR w/ Non-specific ST/T Changes and No evidence of ischemia. Interpreted by me. Reviewed by me. Administered Medications: 04:59 Drug: Ativan 2 mg Route: IVP; Site: right forearm; ea 06:28 Follow up: Response: No adverse reaction ea 05:15 Drug: Keppra 1000 mg Route: IV; Rate: 1 calculated rate; Site: right forearm; ea 05:39 Drug: Ativan 2 mg Route: IVP; Site: right forearm; ea 06:27 Follow up: Response: No adverse reaction ea 06:14 Drug: NS 0.9% 1000 ml Route: IV; Rate: 1000 ml; Site: right forearm; ea 07:40 Follow up: Response: No adverse reaction; IV Status: Completed infusion; IV Intake: tw2 1000ml 06:27 Drug: Zofran (Ondansetron) 4 mg Route: IVP; Site: right forearm; ea 06:55 Follow up: Response: No adverse reaction; Nausea is decreased ea 07:42 Drug: Fosphenytoin 15 mg/kg {Note: available at this time from pharmacy.} Route: IVPB; tw2 Infused Over: 15 mins; Site: right forearm; 07:58 Follow up: Response: No adverse reaction; IV Status: Completed infusion tw2 08:05 Drug: Potassium \T\ Sodium Phosphates 280 mg-160 mg-250 mg 1 packets Route: PO; tw2 08:55 Follow up: Response: No adverse reaction tw2 08:05 Drug: Clindamycin 900 mg Route: IVPB; Infused Over: 30 mins; Site: right forearm; tw2 08:39 Follow up: Response: No adverse reaction; IV Status: Completed infusion tw2 09:19 CANCELLED (Duplicate Order): Topamax 50 mg PO once dominik Disposition: 07/30/20 08:47 Discharged to Home. Impression: Fall due to bumping against object, Epileptic seizures related to external causes, not intractable, Abuse of non-psychoactive substances, Superficial injury of head, Contusion of other part of head - facial, Dental caries, Dental root caries. - Condition is Stable. - Discharge Instructions: Dental Caries, Adult, Dental Pain, Head Injury, Adult, Substance Use Disorder, Nonepileptic Seizures, Seizure, Adult, Dental Pain, [id number], Seizure, Adult, Uxlh-me-Ilda, Head Injury, Adult, [id number]. - Prescriptions for Dilantin Kapseal 100 mg Oral Capsule - take 1 capsule by ORAL route every 8 hours; 30 capsule. Clindamycin HCl 300 mg Oral Capsule - take 1 capsule by ORAL route every 6 hours for 7 days; 28 capsule. topiramate 50 mg Oral tablet - take 1 tablet by ORAL route 2 times per day; 30 tablet. - Medication Reconciliation Form, Thank You Letter, Antibiotic Education, Prescription Opioid Use form. - Follow up: Private Physician; When: 2 - 3 days; Reason: Recheck today's complaints, Continuance of care, Re-evaluation by your physician. Follow up: Luther Christensen; When: 2 - 3 days; Reason: Recheck today's complaints, Re-evaluation by your physician. Follow up: Paresh Skaggs; When: 2 - 3 days; Reason: Recheck today's complaints, Re-evaluation by your physician. - Problem is new. - Symptoms have improved. Critical care time excluding procedures: 07:31 Critical care time: Bedside Care: 25 minutes, Family Intervention: 10 minutes. Total dominik time: 35 minutes Signatures: Dispatcher [employer] EDMS Blue Rodriguez MD MD cha Ballard, Brenda RN RN Blue Miles PA PA cp Wise, Tara, RN RN tw2 Briana Cevallos RN RN ea Holmes, Maurice, MD MD mh7 Corrections: (The following items were deleted from the chart) 05:15 05:12 Unable to obtain HPI due to altered mental status, possible seizure, post ictal. mh7 mh7 06:00 05:59 PHENYTOIN (DILANTIN)+C.LAB.BRZ ordered. EDMS EDMS 09:19 09:17 Topamax 50 mg PO once ordered. dominik [facility] :19 08:47 07/30/2020 08:47 Discharged to Home. Impression: Fall due to bumping against tw2 object; Epileptic seizures related to external causes, not intractable; Abuse of non-psychoactive substances; Superficial injury of head; Contusion of other part of head - facial; Dental caries; Dental root caries. Condition is Stable. Discharge Instructions: Head Injury, Adult, Substance Use Disorder, Nonepileptic Seizures, Seizure, Adult, Seizure, Adult, [id number], Head Injury, Adult, Gaya-cf-Ilat, Dental Caries, Adult, Dental Pain, Dental Pain, [id number]. Prescriptions for Dilantin Kapseal 100 mg Oral Capsule - take 1 capsule by ORAL route every 8 hours; 30 capsule, Clindamycin HCl 300 mg Oral Capsule - take 1 capsule by ORAL route every 6 hours for 7 days; 28 capsule. and Forms are Medication Reconciliation Form, Thank You Letter, Antibiotic Education, Prescription Opioid Use. Follow up: Private Physician; When: 2 - 3 days; Reason: Recheck today's complaints, Continuance of care, Re-evaluation by your physician. Follow up: Luther Christensen; When: 2 - 3 days; Reason: Recheck today's complaints, Re-evaluation by your physician. Follow up: Paresh Skaggs; When: 2 - 3 days; Reason: Recheck today's complaints, Re-evaluation by your physician. Problem is new. Symptoms have improved. dominik
--- NOTE | 2020-07-30 08:48 | ER ---
Nurse's Notes [facility] Name: Alfie Zavala Age: 30 yrs Sex: Male : 1990 Arrival Date: 07/30/2020 Time: 04:43 Bed 5 Private MD: Diagnosis: Fall due to bumping against object;Epileptic seizures related to external causes, not intractable;Abuse of non-psychoactive substances;Superficial injury of head;Contusion of other part of head-facial;Dental caries;Dental root caries Presentation: 07/30 04:51 Chief complaint: brother told registration that pt fell pt does not know what happened. bb Coronavirus screen: At this time, the client does not indicate any symptoms associated with coronavirus-19. Ebola Screen: No symptoms or risks identified at this time. Initial Sepsis Screen: Does the patient meet any 2 criteria? No. Patient's initial sepsis screen is negative. Does the patient have a suspected source of infection? No. Patient's initial sepsis screen is negative. Risk Assessment: Do you want to hurt yourself or someone else? Patient reports no desire to harm self or others. Onset of symptoms is unknown. 04:51 Method Of Arrival: Wheelchair bb 04:51 Acuity: KEN 2 bb Historical: - Allergies: 04:56 No Known Allergies; bb - Home Meds: 04:56 Ambien 10 mg Oral tab 1 tab once daily [Active]; clonazepam 0.5 mg Oral tab [Active]; bb diazepam 10 mg Oral tab 1 tab daily prn for Acute Repetitive Seizures, Anxiety [Active]; fluoxetine 40 mg Oral cap 1 cap once daily [Active]; gabapentin 300 mg Oral cap 1 cap TID prn [Active]; lamotrigine 200 mg Oral tab 2 tabs once daily [Active]; topiramate 50 mg Oral CSpX 3 caps twice a day [Active]; venlafaxine 75 mg Oral tab 1 tab 2 times per day [Active]; zolpidem 12.5 mg Oral TbMP 1 tab qhs prn [Active]; - PMHx: 04:56 Depression; Headaches; Seizures; status epilepticus; bb - PSHx: 04:56 Unable to obtain; bb - Immunization history:: Adult Immunizations unknown. - Social history:: Smoking status: Patient reports the use of cigarette tobacco products, cigars, Patient uses street drugs, marijuana. Screenin:00 Abuse screen: Denies threats or abuse. Nutritional screening: No deficits noted. ea Tuberculosis screening: No symptoms or risk factors identified. Fall Risk Secondary diagnosis (15 points) seizures. Assessment: 04:56 Neuro: Seizure activity noted at this time. Type of seizure: tonic-clonic seizure. ea Seizure lasted approximately 1 minutes. Provider notified. 05:04 General: Appears uncomfortable, Behavior is drowsy. Pain: Denies pain. Neuro: Level of ea Consciousness is post ictal, Oriented to person. Cardiovascular: Patient's skin is warm and dry. Respiratory: Airway is patent Respiratory effort is even, unlabored, Respiratory pattern is regular, symmetrical. Derm: Skin is dry, Skin is normal, Skin temperature is warm Bruising that is dark purple, on right eye. Musculoskeletal: Circulation, motion, and sensation intact. 05:10 Neuro: Seizure activity noted at this time. Type of seizure: tonic-clonic seizure. ea Seizure lasted approximately 1 minutes. provider notified. 05:36 Neuro: Seizure activity Type of seizure: tonic-clonic seizure. Seizure lasted ea approximately 1 minutes. provider notified. 06:08 Neuro: Seizure activity noted at this time. Type of seizure: tonic-clonic seizure. ea Seizure lasted approximately 1 minutes. HR noted at 180, provider notified. 06:18 Neuro: Seizure activity noted at this time. Type of seizure: tonic-clonic seizure. ea Seizure lasted approximately 1 minutes. HR noted at 178 provider notified. 06:52 Neuro: Level of Consciousness is Groggy . Oriented to person, place. ea 07:50 Reassessment: Patient appears in no apparent distress at this time. Patient and/or tw2 family updated on plan of care and expected duration. Pain level reassessed. Patient is alert, oriented x 3, equal unlabored respirations, skin warm/dry/pink. pt states "am i in [place] right", pt reoriented to location at this time. 08:47 Reassessment: Patient appears in no apparent distress at this time. Patient and/or tw2 family updated on plan of care and expected duration. Pain level reassessed. Patient is alert, oriented x 3, equal unlabored respirations, skin warm/dry/pink. 09:11 Reassessment: Patient appears in no apparent distress at this time. Patient and/or tw2 family updated on plan of care and expected duration. Pain level reassessed. Patient is alert, oriented x 3, equal unlabored respirations, skin warm/dry/pink. Vital Signs: 04:51 BP 131 / 82; Pulse 105; Resp 16 S; Temp 98.6(O); Pulse Ox 100% on R/A; Weight 117.93 kg bb (R); Height 5 ft. 11 in. (180.34 cm) (R); Pain 8/10; 05:29 BP 136 / 86; Pulse 110; Resp 19; Pulse Ox 99% on R/A; ea 06:00 BP 127 / 86; Pulse 117; Resp 20; Pulse Ox 97% on R/A; ea 06:54 BP 108 / 83; Pulse 120; Resp 20; Pulse Ox 98% on R/A; ea 07:49 BP 123 / 65; Pulse 123; Resp 22; Pulse Ox 97% on R/A; tw2 08:46 BP 103 / 69; Pulse 104; Resp 22; Pulse Ox 99% on R/A; tw2 09:11 BP 108 / 61; Pulse 99; Resp 17; Pulse Ox 99% on R/A; tw2 04:51 Body Mass Index 36.26 (117.93 kg, 180.34 cm) bb ED Course: 04:43 Patient arrived in ED. bp1 04:46 Filemon Arbeu MD is Attending Physician. 7 04:54 Triage completed. bb 04:55 Inserted saline lock: 20 gauge in right forearm, using aseptic technique. Blood ea collected. 04:56 Arm band placed on Patient placed in an exam room, on a stretcher, on pulse oximetry. bb 04:59 Briana Cevallos RN is Primary Nurse. ea 05:00 Patient has correct armband on for positive identification. Bed in low position. Call ea light in reach. Side rails up X2. Seizure precautions initiated. 06:08 CT Facial Bones W/O Con In Process Unspecified. EDMS 06:08 CT Head C Spine In Process Unspecified. EDMS 07:19 Primary Nurse role handed off by Briana Cevallos, ESCOBAR tw2 07:19 Chelita Arana RN is Primary Nurse. tw2 07:29 Attending Physician role handed off by Filemon Abreu MD [facility] 07:29 Blue Rodriguez MD is Attending Physician. dominik 08:47 Luther Christensen MD is Referral Physician. dominik 08:47 Paresh Skaggs DDS is Referral Physician. dominik 09:11 IV discontinued, intact, bleeding controlled, No redness/swelling at site. Pressure em1 dressing applied. 09:11 IV discontinued, intact, bleeding controlled, No redness/swelling at site. Pressure tw2 dressing applied, per [employer]. 09:18 No provider procedures requiring assistance completed. tw2 Administered Medications: 04:59 Drug: Ativan 2 mg Route: IVP; Site: right forearm; ea 06:28 Follow up: Response: No adverse reaction ea 05:15 Drug: Keppra 1000 mg Route: IV; Rate: 1 calculated rate; Site: right forearm; ea 05:39 Drug: Ativan 2 mg Route: IVP; Site: right forearm; ea 06:27 Follow up: Response: No adverse reaction ea 06:14 Drug: NS 0.9% 1000 ml Route: IV; Rate: 1000 ml; Site: right forearm; ea 07:40 Follow up: Response: No adverse reaction; IV Status: Completed infusion; IV Intake: tw2 1000ml 06:27 Drug: Zofran (Ondansetron) 4 mg Route: IVP; Site: right forearm; ea 06:55 Follow up: Response: No adverse reaction; Nausea is decreased ea 07:42 Drug: Fosphenytoin 15 mg/kg {Note: available at this time from pharmacy.} Route: IVPB; tw2 Infused Over: 15 mins; Site: right forearm; 07:58 Follow up: Response: No adverse reaction; IV Status: Completed infusion tw2 08:05 Drug: Potassium \\T\\ Sodium Phosphates 280 mg-160 mg-250 mg 1 packets Route: PO; tw2 08:55 Follow up: Response: No adverse reaction tw2 08:05 Drug: Clindamycin 900 mg Route: IVPB; Infused Over: 30 mins; Site: right forearm; tw2 08:39 Follow up: Response: No adverse reaction; IV Status: Completed infusion tw2 09:19 CANCELLED (Duplicate Order): Topamax 50 mg PO once dominik Intake: 07:40 IV: 1000ml; Total: 1000ml. tw2 Outcome: 08:47 Discharge ordered by . dominik 09:18 Discharged to home via wheelchair. tw2 09:18 Condition: stable 09:18 Discharge instructions given to patient, Instructed on discharge instructions, follow up and referral plans. medication usage, Demonstrated understanding of instructions, follow-up care, medications, Prescriptions given X 3. 09:19 Patient left the ED. tw2 Signatures: Dispatcher [employer] EDBlue Cintron MD MD cha Ballard, Brenda, RN RN bb Martinez, Eric em1 Chelita Arana RN RN tw2 Briana Cevallos RN RN ea Paniauga, Brittany bp1 Holmes, Maurice, MD MD 7 Corrections: (The following items were deleted from the chart) 05:29 05:10 Neuro: Seizure activity noted at this time. Type of seizure: tonic-clonic ea seizure. Seizure lasted approximately 1 minutes. ea 05:29 04:56 Neuro: Seizure activity noted at this time. Type of seizure: tonic-clonic ea seizure. Seizure lasted approximately 1 minutes. ea
[2020-07-30 09:58] VITALS: TEMP 98.6
[2020-07-30 10:05] VITALS: O2SAT 99
[2020-07-30 10:06] VITALS: BP 108/61
--- NOTE | 2020-07-30 15:44 | RAD REPORT ---
EXAM DESCRIPTION: CT - Head C Spine Mpr Wo Con - 07/30/2020 6:08 am CLINICAL HISTORY: Trauma/pain. COMPARISON: 06/26/2020 TECHNIQUE: Axial CT of the head obtained from the skull apex to the skull base without contrast. Axi al CT images of the cervical spine obtained from the skull base through the thoracic inlet. Sagittal and coronal reformatted images available. FINDINGS: CT head: No acute intracranial hemorrhage identified. No mass, mass effect, shift of the midline, abnormal ext ra-axial fluid collection or CT evidence of acute ischemic change identified. The ventricular system is unremarkable. No acute abnormalities of the supratentorial white matter, basal ganglia, cerebell um, or brainstem. The visualized paranasal sinuses and the mastoids are clear. No skull fracture identified. Visual ized orbits and globes are unremarkable. Minimal right periorbital soft tissue contusion. Cervical CT: Alignment of the cervical spine is maintained without evidence of subluxation. The atlantoaxial, at lantodental, and occipitoatlantal intervals are preserved. No fracture identified. Vertebral body h eight preserved. Prevertebral soft tissues are unremarkable. 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 Intervertebral disc height otherwise preserved. Mild endplate spondylosis. Visualized skull base is intact. No fracture of the visualized facial bones. Visualized mastoid air c ells and paranasal sinuses are well aerated. Visualized thyroid is unremarkable. No cervical lymphadenopathy. No pneumothorax in the visualized lung apices. IMPRESSION: 1. No acute intracranial abnormality. 2. No acute fracture or subluxation of the cervical spine. This exam was performed according to our departmental dose-optimization program, which includes autom ated exposure control, adjustment of the mA and/or kV according to patient size and/or use of iterati ve reconstruction technique. Electronically signed by: Lexx Cordoba 07/30/2020 6:20 AM CDT Due to temporary technical issues with the PACS/Fluency reporting system, reports are being signed by the in house radiologist without review as a courtesy to ensure prompt reporting. The interpreting r adiologist is fully responsible for the content of the report.
--- NOTE | 2020-07-30 15:45 | RAD REPORT ---
EXAM DESCRIPTION: CT - Facial Bones W/ Mpr - 07/30/2020 6:06 am CLINICAL HISTORY: 30-year-old male status post trauma. TECHNIQUE: Axial CT of the facial bones was performed without intravenous contrast with sagittal and coronal reformatted images. The CT study is performed according to ALARA (as low as reasonably achie vable) or ALARA/IMAGE GENTLY, with automatic adjustment of mA and/or kV according to patient size. Performed on: 07/30/2020 at 5:53 AM Comparison: None. FINDINGS: There is no evidence of acute facial bone fracture. The mandible is intact. The temporom andibular joints are preserved. There is a left posterior maxillary periapical cyst/abscess. There is an impacted right posterior mandibular molar. Both globes are intact and are symmetric. The extraocular muscles and optic nerves are symmetric. T he intraconal fat is preserved. There is no evidence of intraorbital emphysema. There is no significant mucosal thickening of the paranasal sinuses. 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 The nasal bones are intact. The bony nasal septum is midline. The anterior maxillary spine is intact. Mastoid air cells and middle ear cavities are clear. There is mild right premalar and right periorbital soft tissue swelling. IMPRESSION: 1. No evidence of acute facial bone pathology. 2. Mild right premalar and right periorbital soft tissue swelling. 3. Left posterior maxillary periapical cyst/abscess. 4. Impacted right posterior mandibular molar. Electronically signed by: Scarlett Mtz DO 07/30/2020 6:19 AM CDT Due to temporary technical issues with the PACS/Fluency reporting system, reports are being signed by the in house radiologist without review as a courtesy to ensure prompt reporting. The interpreting r adiologist is fully responsible for the content of the report.
--- NOTE | 2020-07-31 05:53 | EKG ---
Test Date: 2020-07-30 Test Time: 04:55:56 Children Librarian: ANA MEASUREMENT RESULTS: Intervals: Rate: 107 AL: 128 QRSD: 82 QT: 320 QTc: 427 Cascade: P: 24 AL: 128 QRS: 19 T: 17 INTERPRETIVE STATEMENTS: Sinus tachycardia Possible Inferior infarct, age undetermined Abnormal ECG Compared to ECG 07/20/2020 13:37:29 Myocardial infarct finding now present Sinus rhythm no longer present Electronically Signed On 07-31-20 05:50:23 CDT by Jamey Pace
== END 2020-07-30 09:19 | disposition home or self-care (01) ==
LOC: ER 04:37
DX: F55.8 Abuse of other non-psychoactive substances (principal); S00.90XA Unspecified superficial injury of unspecified part of head, initial encounter; S00.83XA Contusion of other part of head, initial encounter; K02.7 Dental root caries; K02.9 Dental caries, unspecified; W18.00XA Striking against unspecified object with subsequent fall, initial encounter; Y93.9 Activity, unspecified; Y92.9 Unspecified place or not applicable; F17.290 Nicotine dependence, other tobacco product, uncomplicated; F32.9 Major depressive disorder, single episode, unspecified
CPT/HCPCS: 36415; 70450; 70486; 72125; 76377; 80048; 80076; 80185; 80307; 80320; 80329; 81003; 83735; 84100; 85025; 85610; 85730; 93005; 96361; 96365; 96367; 96375; 99284; J1953; J2405; J7030; Q2009

== ENCOUNTER 2020-09-26 16:36 | Inpatient (IN) | payer SELFPAY ==
--- OUTSIDE RECORDS SUMMARY | 2020-09-26 16:38 | XMS REPORT | Clinical Summary ---
:1990 Author Organization [facility] Address [address] [place] [address] Care Team Providers Name Role Phone Andrew [...] Suicide attempt 08/11/2018 Seizure 08/10/2018 Immunizations Name Administration Dates Next Due Influenza Four-QIV Non-PF 5+ YR 09/12/2018 Social History Tobacco Use Types Packs/Day Years Used Date Never Smoker Alcohol Use Drinks/Week oz/Week Comments No Sex Assigned at Date Recorded Not on file Last Filed Vital Signs Not on file Plan of Treatment Health Maintenance Due Date Last Done Comments LIPID PANEL 2008 INFLUENZA VACCINE (#1) 2020 09/12/2018 Results Not on fileafter 09/26/2019 Insurance Payer Benefit Plan / Subscriber ID Effective Dates Phone Addre ss Type Group BLUE BCBS PPO POS [id number] 2014-Presen [phone] [id number] PPO CROSS/BLUE EPO CHOICE t 2 [facility] [id number] Advance Directives For more information, please contact: [phone] Code Status Date Activated Date Inactivated Comments Full Code 09/10/2018 7:22 AM This code status was determined by: Patient Full Code 08/10/2018 1:35 AM 08/13/2018 8:26 PM This code status was determined by: Patient
--- OUTSIDE RECORDS SUMMARY | 2020-09-26 16:39 | XMS REPORT | Continuity of Care Document ---
:1990 Author Organization [facility] t Address 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[facility] major major 00 Center depressive depressive disorder disorder Suicide Suicide Disease Active [facility] attempt attempt 08-11 [facility] 00:[facility]: Medical 00 [place] Seizure Seizure Disease Active [facility] 08[facility] 00:[facility]: [facility] 00 Center Allergies, Adverse Reactions, Alerts Allergy Allergy Status Severity Reaction(s) Onset Inactive Treating Comm ents Source Name Type Date Date Clinician Lorazepa Drug Active Hives [facility] m Allergy 08-10 [facility] - 00:00: Medical 00 [place] Social History Social Habit Start Date Stop Date Quantity Comments Source Sex Assigned At [facility] Alcohol intake 2015-11-01 2015-11-01 Current [facility] es - 00:00:00 00:00:00 non-drinker of Medical Ce nter alcohol (finding) Smoking Status Start Date Stop Date Source Never smoker [facility] edical [place] Medications Ordered Filled Start Stop Current Ordering Indication Dosage Frequency Signature Comments Components Source Medication Medication Date Date Medication? Clinician (SIG) Name Name lamoTRIgine 2017-11 Yes 200mg Q.5D Take [address] (LAMICTAL) 0-30 mg by [facility] - 200 MG 21:02: mouth 2 Medical tablet 32 (two) Center times daily. SUMAtriptan 2017-11 Yes 50mg Take [address] [facility] (IMITREX) 0-30 by mouth [facility] - 50 MG 21:02: once as Medical tablet 32 needed for Center Headaches. topiramate 2017-11 Yes 50mg Q.5D Take [address] (TOPAMAX) 0-30 by mouth 2 [facility] - 50 MG 21:02: (two) Medical tablet 32 times Center daily. FLUoxetine 2017-11 Yes 40mg QD Take [address] (PROZAC) 40 0-30 by mouth [facility] - MG capsule 21:02: daily. Medic al 32 Center phenytoin 2017-11 Yes 200mg Q.[id number] Take [address] (DILANTIN) 0-30 [id number] mg by Sherrill kes - 100 MG ER 21:02: 3D mouth 3 Medic al capsule 32 (three) Center times daily. gabapentin 2017-11 Yes 300mg Take [address] [facility] (NEURONTIN) 0-30 capsule [facility] - 300 MG 00:00: (300 mg Medical capsule 00 total) by Center mouth 3 (three) times daily as needed (anxiety). mirtazapine Yes 15mg QD Take 1 [facility] [...] for Anxiety. Max Daily Amount: 30 mg Immunizations Ordered Immunization Filled Immunization Date Status Commen ts Source Name Name Influenza Four-QIV 2018-09-[address] [facility] - Non-PF 5+ YR 00:00:00 Medical Cent er Procedures This patient has no known procedures. Plan of Care Planned Activity Planned Date Details Comments Source Future Scheduled 2020-07-[address] [facility] - Test 00:00:00 (#1) [code = [facility] INFLUENZA VACCINE (#1)] Future Scheduled [address] [facility] - Test 00:00:00 (procedure) [code = [facility] [id number]] Results Test Description Test Time Test Comments Results Result Comments Source BLOOD CULTURE 2018-09-15 18:00:00 Test Item Value Reference Range Interpretation Comme nts CULTURE (BEAKER) (test code = 1095) No growth in 5 days BLOOD [id number] 18:00:00 Test Item Value Reference Range Interpretation Comments CULTURE (BEAKER) (test No growth in 5 days code = 1095) SPUTUM CULTURE + GRAM [id number] 14:21:00 Test Item Value Reference Range Interpretation Comments CULTURE (BEAKER) 4+ Normal respiratory (test code = 1095) beatrice present GRAM STAIN RESULT 1+ gram positive rods (BEAKER) (test code = 1123) GRAM STAIN RESULT 1+ gram negative cocci (BEAKER) (test code = 54008) GRAM STAIN RESULT 2+ gram positive cocci (BEAKER) (test code = in chains 53789) GRAM STAIN RESULT 1+ gram positive cocci (BEAKER) (test code = in clusters [id number]) RAD, CHEST, 1 VIEW, NON [id number] 07:27:00Reason for exam:->post intubationShould this be performed [...] MDReport Verified Date/Time: 09/13/2018 07:27:51 Reading Location: [facility] Radiology Reading Room PHOSPHORUS 2018-09-13 04:44:00 Test Item Value Reference Range Interpretation Comments PHOSPHORUS (BEAKER) (test code = 2.9 mg/dL 2.3-4.7 604) Check Serum Phosphorus level 4 hours after IV phosphorus replacement or 8 hours after PO replacementcompleted.[id number] 04:44:00 Test Item Value Reference Range Interpretation Comments MAGNESIUM (BEAKER) (test code = 2.2 mg/dL 1.6-2.6 627) Check Serum Phosphorus level 4 hours after IV phosphorus replacement or 8 hours after PO replacementcompleted.BASIC METABOLIC [id number] 04:44:00 Test Item Value Reference Range Interpretation [...] after PO replacementcompleted.CBC W/PLT COUNT & AUTO [id number] 04:19:00 Test Item Value Reference Range Interpretation [...] 0-1 PERCENT (BEAKER) (test code = 2801) [id number] 18:41:00 Test Item Value Reference Range Interpretation Comments POTASSIUM (BEAKER) (test code = 3.9 meq/L 3.5-5.1 379) Check Serum Potassium level 2 hours after oral potassium replacement completed or 30 min after intravenous potassium replacement.[id number] 18:41:00 Test Item Value Reference Range Interpretation Comments MAGNESIUM (BEAKER) (test code = 2.9 mg/dL 1.6-2.6 H 627) Check Serum Potassium level 2 hours after oral potassium replacement completed or 30 min after intravenous potassium replacement.EEG MONITORING WITH VIDEO RECORDING EACH 24 [id number] 14:34:00billing for 09/12 AMDATE OF REPORT: 09/12/2018 ACC: [id number] EE Start time: 09/11 at 0920 AM Stop time: 09/12 at 11:11 AM ICD-10: R56.9 CPT Code: 58344 HISTORY: 28 year old male p/w increased [...] Fellow Davis Cintron MD, PhD Attending Neurophysiologist [facility] [id number] 12:15:00 Test Item Value Reference Range Interpretation Comments MAGNESIUM (BEAKER) (test code = 1.9 mg/dL 1.6-2.6 627) Check Serum Phosphorus level 4 hours after IV phosphorus replacement or 8 hours after PO replacementcompleted.Check Serum Potassium level 2 hours after oral potassium replacement completed or 30 min after intravenous potassium replacement.[id number] 12:15:00 Test Item Value Reference Range Interpretation Comments PHOSPHORUS (BEAKER) (test code = 2.0 mg/dL 2.3-4.7 L 604) Check Serum Phosphorus level 4 hours after IV phosphorus replacement or 8 hours after PO replacementcompleted.Check Serum Potassium level 2 hours after oral potassium replacement completed or 30 min after intravenous potassium replacement.[id number] 12:14:00 Test Item Value Reference Range Interpretation Comments POTASSIUM (BEAKER) (test code = 3.6 meq/L 3.5-5.1 379) Check Serum Phosphorus level 4 hours after IV phosphorus replacement or 8 hours after PO replacementcompleted.Check Serum Potassium level 2 hours after oral potassium replacement completed or 30 min after intravenous potassium replacement.CALCIUM, [id number] 11:49:00 Test Item Value Reference Range Interpretation Comments CALCIUM IONIZED (BEAKER) (test 1.09 mmol/L 1.12-1.27 L code = 698) PH, BLOOD (BEAKER) (test code = 7.46 1810) Check serum Ionized Calcium level after 4 hours after IV Calcium replacement. URINE [id number] 08:18:00 Test Item Value Reference Range Interpretation Comments CULTURE (BEAKER) (test code = 1095) No growth [id number] 03:59:00 Test Item Value Reference Range Interpretation Comments PHOSPHORUS (BEAKER) (test code = 2.5 mg/dL 2.3-4.7 604) Check Serum Phosphorus level 4 hours after IV phosphorus replacement or 8 hours after PO replacementcompleted.[id number] 03:59:00 Test Item Value Reference Range Interpretation Comments MAGNESIUM (BEAKER) (test code = 2.1 mg/dL 1.6-2.6 627) Check Serum Phosphorus level 4 hours after IV phosphorus replacement or 8 hours after PO replacementcompleted.BASIC METABOLIC [id number] 03:59:00 Test Item Value Reference Range Interpretation [...] after PO replacementcompleted.CBC W/PLT COUNT & AUTO [id number] 03:41:00 Test Item Value Reference Range Interpretation [...] PERCENT (BEAKER) (test code = 2801) POCT-GLUCOSE [id number] 23:55:00 Test Item Value Reference Range Interpretation Comments POC-GLUCOSE METER 94 mg/dL 70-110 TESTED AT [facility] [address] [facility] (test code = [place] [address] 1538) [id number] 18:08:00 Test Item Value Reference Range Interpretation Comments POTASSIUM (MAXIMINO) (test code = 3.4 meq/L 3.5-5.1 L 379) Check Serum Potassium level 2 hours after oral potassium replacement completed or 30 min after intravenous potassium replacement.EEG MONITORING WITH VIDEO RECORDING EACH 24 [id number] 09:23:00DATE OF REPORT: 09/11/2018ACC: [id number]: art time: 09/10 at 15:05Stop time: 09/11 at 09:20 AMICD- 10: R56.9CPT Code: 77675 HISTORY: 28 yo male with h/o seizures [...] MDNeurophysiology Fellow Joao Blum M.D., FACNSProfessor of NeurologyBackus Hospital of Summa HealthDirector, [facility] Epilepsy CenterL[facility] Neuro[facility] RAD, CHEST, 1 VIEW, NON [...] is magnified by technique. Signed: Kody Vuong MDReport Verified Date/Time: 09/11/2018 07:32:46 Reading Location: [address] Neuro Reading Room POCT-GLUCOSE [id number] 06:30:00 Test Item Value Reference Range Interpretation Comments POC-GLUCOSE METER 111 mg/dL 70-110 H TESTED AT [facility] [address] ([facility]) (test code = [facility] 1538) [address] BASIC METABOLIC [id number] 06:06:00 Test Item Value Reference Range Interpretation [...] PATIEN TS. CBC W/PLT COUNT & AUTO [id number] 03:47:00 Test Item Value Reference Range Interpretation [...] (BEAKER) (test code = 2801) BLOOD GAS, [id number] 03:32:00 Test Item Value Reference Range Interpretation [...] (test code = 1819) 40.0 % POCT-GLUCOSE [id number] 01:01:00 Test Item Value Reference Range Interpretation Comments POC-GLUCOSE METER 91 mg/dL 70-110 TESTED AT [facility] [address] (BEAKER) (test code = [place] Guti[address] [facility] [address] 1538) TROPONIN [id number] 17:18:00 Test Item Value Reference Range Interpretation [...] neurological disease, and persistent tachyarrhythmia.EEG AWAKE AND [id number] 15:50:00 Reason for exam:->Status epilepticus, c EEG for evaluation of subclinical seizures Should this beperformed at the bedside?->YesDATE OF REPORT: 09/10/2018ACC: [id number]: [id number] time: 14:47Stop time: 15:04ICD-10: R56.9CPTCode: 13798 HISTORY: 28 yo male with h/o seizures [...] MDNeurophysiology Fellow Joao Blum M.D., FACNSProfessor of NeurologySt. Francis Medical CenterDirector, [facility] Epilepsy [place] BLOOD GAS, [id number] 12:32:00 Test Item Value Reference Range Interpretation [...] 1819) 40.0 % RAD, ABDOMEN/KUB, 1 VIEW [id number] 12:12:00Reason for exam:->corpakShould this be performed at the bedside?->YesFINAL REPORT AP abdomen, three images HISTORY: Feeding tube COMPARISON: 11/01/2015 IMPRESSION:Feeding tube present with tip in abdomen. Bowel gas pattern appears grossly nonobstructive. Signed: Edgardo Guzman Verified Date/Time: 09/10/2018 12:12:56 Reading Location: [address] Ortho Consult Reading Room , CHEST, 1 VIEW, NON [id number] 10:40:00Reason for exam:->post intubationShould this be performed at the bedside?->YesFINAL REPORT AP chest HISTORY: Intubation COMPARISON: None IMPRESSION:Endotrac heal tube in satisfactory position. Right IJ central venous catheter at mid SVC. Heart size normal. Mild perihilar atelectasis. Lungs otherwise clear. No pneumothorax. Signed: Edgardo Guzman Verified Date/Time: 09/10/2018 10:40:47 Reading Location: [address] Ortho Consult Reading Room El ectronically signed by: EDGARDO GUZMAN M.D. on 09/10/2018 10:40 AM TROPONIN [id number] 09:21:00 Test Item Value Reference Range Interpretation Comments TROPONIN I (MAXIMINO) (test code = 397) < ng/mL 0.00-0.03 [...] failure, acidosis, acute neurological disease, and persistent tachyarrhythmia.[id number] 09:19:00 Test Item Value Reference Range Interpretation Comments CARBAMAZEPINE LEVEL (MAXIMINO) (test 2.2 ug/mL 4.0-12.0 L code = 696) PHENYTOIN LEVEL, [id number] 09:18:00 Test Item Value Reference Range Interpretation Comments PHENYTOIN (DILANTIN) (BEAKER) 10.8 ug/mL 10.0-20.0 (test code = 605) [id number] 09:03:00 Test Item Value Reference Range Interpretation Comments PARTIAL THROMBOPLASTIN TIME 27.5 seconds 22.5-36.0 (BEAKER) (test code = 760) PROTHROMBIN [id number] 09:02:00 Test Item Value Reference Range Interpretation Comments PROTIME (BEAKER) (test code = 14.6 seconds 11.7-14.7 759) INR (BEAKER) (test code = 370) 1.1 <=5.9 RECOMMENDED COUMADIN/WARFARIN INR THERAPY RANGESSTANDARD DOSE: 2.0 - 3.0 Includes: PROPHYLAXIS forvenous thrombosis, systemic embolization; TREATMENT for venous thrombosis and/or pulmonary embolus.HIGH RISK: Target INR is 2.5-3.5 for patients with mechanical heart valves.PLATELET [id number] 08:53:00 Test Item Value Reference Range Interpretation Comments PLATELET COUNT (BEAKER) (test 184 K/CU MM 150-450 code = 756) BASIC METABOLIC [id number] 07:07:00 Test Item Value Reference Range Interpretation [...] 29-200 H code = 380) BASIC METABOLIC [id number] 05:19:00 Test Item Value Reference Range Interpretation [...] U/L 29-200 H code = 380) POCT-GLUCOSE [id number] 17:02:00 Test Item Value Reference Range Interpretation Comments POC-GLUCOSE METER 93 mg/dL 70-110 TESTED AT [facility] [address] (BEAKER) (test code = [place] [address] [facility] [address] 1538) [id number] 04:54:00 Test Item Value Reference Range Interpretation Comments MAGNESIUM (BEAKER) (test code = 2.1 mg/dL 1.6-2.6 627) BASIC METABOLIC [id number] 04:54:00 Test Item Value Reference Range Interpretation [...] Interpretation Comments CREATINE KINASE TOTAL (BEAKER) (test 2031 U/L 29-200 H code = 380) EEG AWAKE AND [id number] 16:50:00Reason for exam:->seizure disorder Neurophysiology Electroencephalogram Report DATE OF REPORT: 08/10/18Date(s) of Study: 08/10/2018ACC: [id number]: 18-8Start time: 1517 hrsStop time: 1537 hrsICD-10: R56.9 Unspecified ConvulsionsCPT Code: 69427 EEG: awake and drowsy <40 min HISTORY: [...] EEG recordings. Tisha Brown MDEpilepsy Fellow Shamir Naejra MD, MSClinical Neurophysiology/Epilepsy Attending [facility] Neurophysiology Service URINALYSIS W/ [id number] 05:20:00 Test Item Value Reference Range Interpretation [...] 520) 0 /HPF SOURCE(BEAKER) (test code = 2790) [id number] 03:17:00 Test Item Value Reference Range Interpretation Comments CARBAMAZEPINE LEVEL (BEAKER) (test < ug/mL 4.0-12.0 L code = 696) [id number] 02:33:00 Test Item Value Reference Range Interpretation Comments PHOSPHORUS (BEAKER) (test code = 2.8 mg/dL 2.3-4.7 604) [id number] 02:33:00 Test Item Value Reference Range Interpretation Comments MAGNESIUM (BEAKER) (test code = 2.2 mg/dL 1.6-2.6 627) BASIC METABOLIC [id number] 02:33:00 Test Item Value Reference Range Interpretation [...] APPLICABLE FOR DIALYSIS PATIEN TS. HEPATIC FUNCTION [id number] 02:33:00 Test Item Value Reference Range Interpretation [...] U/L 29-200 H code = 380) C-REACTIVE [id number] 02:33:00 Test Item Value Reference Range Interpretation Comments C-REACTIVE PROTEIN (BEAKER) (test 0.45 mg/dL 0.00-0.50 code = 676) LACTIC ACID, VENOUS, WHOLE [id number] 02:26:00 Test Item Value Reference Range Interpretation Comments LACTATE BLOOD VENOUS 1.0 mmol/L 0.5-2.2 Specime n slightly (2) (BEAKER) (test hemolyzed code = 2872) Effective 03/18/2016: Units/Reference Range ChangeNew: 0.5-2.2 mmol/L Previous: 5-20 mg/dLCBC W/PLT COUNT & AUTO [id number] 02:05:00 Test Item Value Reference Range Interpretation [...] (BEAKER) (test code = 2801) POCT-BLOOD GASES, [id number] 01:50:00 Test Item Value Reference Range Interpretation Comments TEMP, CELSIUS-POC 37.0 (BEAKER) (test code = 1834) FIO2-POC (BEAKER) TESTED AT [facility] [address] (test code = 1835) [place] [place] [address] PH, ARTERIAL-POC 7.396 7.350-7.450 (BEAKER) (test code [...] L ARTERIAL-POC (BEAKER) (test code = 1841) [id number] 01:50:00 Test Item Value Reference Range Interpretation Comments POC-SODIUM ([facility]) 140 meq/L 135-148 TESTED [place] [address] (test code = 1542) HERMINIA Rodgers [facility] [address] [id number] 01:50:00 Test Item Value Reference Range Interpretation Comments POC-POTASSIUM 3.4 meq/L 3.6-5.5 L TESTED AT [place] [address] ([facility]) (test code [facility] [address] = 1540) [id number] 01:50:00 Test Item Value Reference Range Interpretation Comments POC-GLUCOSE ([facility]) 105 mg/dL 70-110 TESTED AT [place] [address] (test code = 1855) [facility] [address] POCT-CALCIUM [id number] 01:50:00 Test Item Value Reference Range Interpretation Comments POC-CALCIUM IONIZED 1.15 mmol/L 1.12-1.27 TESTED [place] [address] ([facility]) (test code = [facility] Marla [facility] 1536) [address] [id number] 01:50:00 Test Item Value Reference Range Interpretation Comments POC-HEMATOCRIT 35 % 40-50 L TESTED AT [place] [address] ([facility]) (test code = [facility] Marla [facility] [address]57) [id number] 01:50:00 Test Item Value Reference Range Interpretation Comments POC-HEMOGLOBIN 11.9 g/dL 13.0-16.8 L TESTED AT [place] [address] ([facility]) (test code [facility] = 1856) [id number] AT [address] [address] POCT-LACTIC ACID, [id number] 01:49:00 Test Item Value Reference Range Interpretation Comments POC-LACTIC ACID, 0.9 mmol/L 0.4-1.3 TESTED AT [place] [address] ARTERIAL ([facility]) [facility] (test code = 2804) [address]
[2020-09-26] MEDS ORDERED: LORazepam 2 MG/ML VIAL ONE ×4 (17:04→23:35)
[2020-09-26] MEDS ORDERED: NA CHLORIDE 0.9% 1,000 ML ONE ×2 (17:04→23:35)
[2020-09-26 17:06] LABS: Absolute Lymphocytes (CBC) 3.3 K/uL (0.7-4.9); Basophils % 0.9 % (0-1.3); Hematocrit 44.9 % (39.6-49.0); Lymphocytes % 42.2 % (15.3-44.8); MPV 9.2 fL (7.6-11.3)
[2020-09-26 17:08] LABS: Protime INR 0.97
[2020-09-26 17:15] LABS: Urine Blood 1+ (NEG); Urine Glucose NEGATIVE (NEG); Urine Protein NEGATIVE (NEG); Urine Specific Gravity 1.015 (1.005-1.030); Urine pH 5.5 (5.0-7.0)
[2020-09-26 17:17] LABS: ALT/SGPT 61 U/L (12-78); AST/SGOT 28 U/L (15-37); Albumin 3.9 g/dL (3.4-5.0); Alkaline Phosphatase 134 U/L (45-117); BUN Blood Urea Nitrogen 8 mg/dL (7-18); Bicarbonate 17 mmol/L (21-32); Bilirubin Direct < 0.1 mg/dL (0-0.2); Bilirubin Total 0.2 mg/dL (0.2-1.0); Glucose Level 97 mg/dL (74-106); Potassium 3.9 mmol/L (3.5-5.1); Protein, Total 7.6 g/dL (6.4-8.2); Sodium Level 141 mmol/L (136-145)
[2020-09-26 17:26] LABS: Barbiturates NEGATIVE (NEGATIVE); Benzodiazepines POSITIVE (NEGATIVE); Cocaine NEGATIVE (NEGATIVE); METHAMPHETAM NEGATIVE (NEGATIVE); Methadone NEGATIVE (NEGATIVE); Opiates NEGATIVE (NEGATIVE); Phencyclidine NEGATIVE (NEGATIVE); THC Cannibis POSITIVE (NEGATIVE)
--- NOTE | 2020-09-26 17:41 | RAD REPORT ---
EXAM DESCRIPTION: CT - Head C Spine Mpr Wo Con - 09/26/2020 5:20 pm CLINICAL HISTORY: Seizure. Head and neck injury status post fall. Head and neck pain COMPARISON: July 2020 TECHNIQUE: Computed axial tomography of the head and cervical spine was obtained. Sagittal and coronal reconstruction was performed. All CT scans are performed using dose optimization technique as appropriate and may include automated exposure control or mA/KV adjustment according to patient size. FINDINGS: An intracranial bleed is not seen. The ventricles are normal in caliber. An extra-axial fl uid collection is not noted.Fluid within the visualized sinuses and mastoids is not seen A cervical fracture is not visualized. No dislocation is noted. IMPRESSION: No acute intracranial abnormality is seen. A cervical fracture is not visualized. If the patient continues to have symptoms to suggest intracra nial /spinal cord pathology then MRI would be recommended
[2020-09-26] MEDS ORDERED: FOSPHENYTOIN PE 500 MG/10 ML VIAL ONE ×2 (17:58→19:13)
[2020-09-26] MEDS ORDERED: NA CHLORIDE 0.9% 100 ML ONE ×2 (17:59→19:13)
--- NOTE | 2020-09-26 19:06 | EDPHYS ---
Physician Documentation [facility] Name: Alfie Zavala Age: 30 yrs Sex: Male : 1990 Arrival Date: 09/26/2020 Time: 16:30 Bed 25 Private MD: Blue Baptiste HPI: 09/26 18:29 This 30 yrs old Male presents to ER via EMS with complaints of Seizure. kdr 18:29 The patient presents with a history of multiple seizures, an unknown number, the kdr episode(s) was witnessed, by a bystander. Character of seizure(s): Loss of consciousness: the patient experienced loss of consciousness, Motor activity: generalized, shaking all over, Incontinence: none, Apnea: the patient did not experience apnea, Circulation: the patient did not experience evidence of pulse disturbance, Eye movements: during the seizure the eyes were fixed in one direction, to the left. Seizure onset: just prior to arrival. Context: the seizure(s) was witnessed, by a bystander, occurred on a street or driveway, The patient was walking down a gravel road by himself and had a series of seizures before EMS arrival and subsequent to their arrival. See nursing notes for meds given by EMS . 19:00 Seizure Hx: Cause: unknown. Associated injury: The patient did not suffer any apparent dominik associated injury. The patient has experienced similar episodes in the past. Historical: - Allergies: 17:01 No Known Allergies; iw - Home Meds: 16:50 Ambien 12.5 mg Oral tab 1 tab nightly [Active]; clonazepam 0.5 mg Oral tab 3 times per iw day [Active]; diazepam 10 mg Oral tab 1 tab daily prn for Acute Repetitive Seizures, Anxiety [Active]; lamotrigine 200 mg Oral tab 1 tab 2 times per day [Active]; venlafaxine 75 mg Oral tab 1 tab 2 times per day [Active]; topiramate 50 mg Oral CSpX 1 cap twice a day [Active]; Phenytoin 100 mg Oral every 8 hours [Active]; sumatriptan succinate 50 mg oral tab [Active]; - PMHx: 16:50 Depression; Headaches; Seizures; status epilepticus; iw - Immunization history:: Adult Immunizations up to date. - Family history:: not pertinent. - Social history:: Smoking status: unknown. ROS: 18:32 All other systems are negative. kdr 18:32 Unable to obtain ROS due to altered mental status, obtunded state. 19:00 Constitutional: Negative for fever, chills, and weight loss, Eyes: Negative for injury, dominik pain, redness, and discharge, ENT: Negative for injury, pain, and discharge, Neck: Negative for injury, pain, and swelling, Cardiovascular: Negative for chest pain, palpitations, and edema, Respiratory: Negative for shortness of breath, cough, wheezing, and pleuritic chest pain, Abdomen/GI: Negative for abdominal pain, nausea, vomiting, diarrhea, and constipation, Back: Negative for injury and pain, : Negative for injury, bleeding, discharge, and swelling, MS/Extremity: Negative for injury and deformity, Skin: Negative for injury, rash, and discoloration, Psych: Negative for depression, anxiety, suicide ideation, homicidal ideation, and hallucinations, Allergy/Immunology: Negative for hives, rash, and allergies, Endocrine: Negative for neck swelling, polydipsia, polyuria, polyphagia, and marked weight changes, Hematologic/Lymphatic: Negative for swollen nodes, abnormal bleeding, and unusual bruising. 19:00 Neuro: Positive for altered mental status, seizure activity. Exam: 18:32 Constitutional: This is a well developed, well nourished patient who is awake, alert, kdr and in no acute distress. Head/Face: Normocephalic, atraumatic. Eyes: Pupils equal round and reactive to light, extra-ocular motions intact. Lids and lashes normal. Conjunctiva and sclera are non-icteric and not injected. Cornea within normal limits. Periorbital areas with no swelling, redness, or edema. Neck: Trachea midline, no thyromegaly or masses palpated, and no cervical lymphadenopathy. Supple, full range of motion without nuchal rigidity, or vertebral point tenderness. No Meningismus. Chest/axilla: Normal chest wall appearance and motion. Nontender with no deformity. No lesions are appreciated. Cardiovascular: Regular rate and rhythm with a normal S1 and S2. No gallops, murmurs, or rubs. Normal PMI, no JVD. No pulse deficits. Respiratory: Lungs have equal breath sounds bilaterally, clear to auscultation and percussion. No rales, rhonchi or wheezes noted. No increased work of breathing, no retractions or nasal flaring. Abdomen/GI: Soft, non-tender, with normal bowel sounds. No distension or tympany. No guarding or rebound. No evidence of tenderness throughout. Back: No spinal tenderness. No costovertebral tenderness. Full range of motion. Skin: Warm, dry with normal turgor. Normal color with no rashes, no lesions, and no evidence of cellulitis. MS/ Extremity: Pulses equal, no cyanosis. Neurovascular intact. Full, normal range of motion. 18:32 Neuro: Orientation: unable to test, Mentation: slow to respond, confused, Motor: moves all fours. 18:34 ECG was reviewed by the Attending Physician. kdr Vital Signs: 16:35 BP 105 / 52; Pulse 155; Resp 30 S; Pulse Ox 100% on Non-rebreather mask; iw 17:06 BP 92 / 67; Pulse 131; Resp 24 S; Temp 97.4(TE); Pulse Ox 100% on Non-rebreather mask; iw Pain 0/10; 18:04 BP 92 / 57; Pulse 128; Resp 20 S; Pulse Ox 100% on Non-rebreather mask; aa5 18:44 BP 91 / 33; Pulse 124; Resp 24 S; Pulse Ox 100% on Non-rebreather mask; aa5 19:35 BP 110 / 63; Pulse 121; Resp 23; Pulse Ox 100% ; rr5 19:45 BP 110 / 63; Pulse 98; Resp 20; Pulse Ox 100% ; rr5 20:30 BP 114 / 66; Pulse 110; Resp 17; Pulse Ox 100% on R/A; rv 21:32 BP 125 / 78; Pulse 126; Resp 18; Pulse Ox 100% on R/A; rv [place] Coma Score: 21:32 Eye Response: spontaneous(4). Verbal Response: oriented(5). Motor Response: obeys rv commands(6). Total: 15. MDM: 18:42 Patient medically screened. [facility] 19:00 Differential diagnosis: seizure. Data reviewed: vital signs, nurses notes, EMS record, [facility] lab test result(s), EKG, radiologic studies, CT scan, plain films. 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 Test interpretation: by ED physician or midlevel provider: ECG, plain radiologic studies. Counseling: I had a detailed discussion with the patient and/or guardian regarding: the historical points, exam findings, and any diagnostic results supporting the discharge/admit diagnosis, lab results, radiology results, the need for further work-up and treatment in the hospital. 19:03 Physician consultation: Luther Christensen MD. [facility] 09/26 16:35 Order name: Acetaminophen; Complete Time: 17:43 [facility] 09/26 16:35 Order name: Basic Metabolic Panel; Complete Time: 17:43 kdr 09/26 16:35 Order name: CBC with Diff; Complete Time: 17:43 kdr 09/26 16:35 Order name: ETOH Level; Complete Time: 17:43 kdr 09/26 16:35 Order name: Hepatic Function; Complete Time: 17:43 [facility] 09/26 16:35 Order name: PT-INR; Complete Time: 17:43 kdr 09/26 16:35 Order name: Ptt, Activated; Complete Time: 17:43 [facility] 09/26 16:35 Order name: Salicylate; Complete Time: 17:43 [facility] 09/26 16:35 Order name: Urine Drug Screen; Complete Time: 17:43 [facility] 09/26 16:46 Order name: Dilantin; Complete Time: 17:43 [facility] 09/26 17:08 Order name: Urine Dipstick--Ancillary (enter results); Complete Time: 17:43 09/26 20:28 Order name: COVID-19 09/27 00:03 Order name: Phenytoin (Dilantin) Level [facility] 09/27 05:03 Order name: CBC with Automated Diff [facility] 09/26 16:35 Order name: EKG; Complete Time: 16:37 [facility] 09/26 16:35 Order name: EKG - Nurse/Tech; Complete Time: 17:11 [facility] 09/26 16:56 Order name: CT Head C Spine; Complete Time: 17:43 [facility] 09/27 06:23 Order name: Basic Metabolic Panel [facility] 09/27 06:23 Order name: T4 Free [facility] 09/27 06:23 Order name: Magnesium [facility] 09/27 06:23 Order name: Thyroid Stimulating Hormone [facility] 09/26 16:35 Order name: IV Saline Lock; Complete Time: 16:51 [facility] 09/26 16:35 Order name: Labs collected and sent; Complete Time: 16:51 kdr 09/26 16:35 Order name: Urine Dipstick-Ancillary (obtain specimen); Complete Time: 17:11 kdr EC:34 Rate is 135 beats/min. Rhythm is regular, Sinus tachycardia with No ectopy. QRS [place] is kdr Normal. HI interval is normal. QRS interval is normal. QT interval is normal. Clinical impression: Sinus tachycardia. Administered Medications: 16:58 Drug: Ativan 1 mg Route: IVP; Site: left hand; sg 23:49 Follow up: Response: No adverse reaction; RASS: Alert and Calm (0) wh 17:12 Drug: NS 0.9% 1000 ml Route: IV; Rate: 1 bolus; Site: left hand; sg 18:00 Follow up: IV Status: Completed infusion; IV Intake: 1000ml aa5 17:50 Drug: CEREbyx 1 grams Route: IVPB; Site: left hand; aa5 18:05 Follow up: Response: No adverse reaction; IV Status: Completed infusion aa5 17:51 Drug: Ativan 1 mg Route: IVP; Site: left hand; aa5 17:53 Follow up: Response: No adverse reaction; Marked relief of symptoms aa5 17:53 Drug: NS 0.9% 1000 ml Route: IV; Rate: 1 bolus; Site: left hand; aa5 19:19 Follow up: IV Status: Completed infusion; IV Intake: 1000ml aa5 18:22 Drug: Ativan 1 mg Route: IVP; Site: left hand; aa5 18:24 Follow up: Response: No adverse reaction; Marked relief of symptoms aa5 18:57 Drug: Ativan 1 mg Route: IVP; Site: left hand; aa5 18:59 Follow up: Response: No adverse reaction; Marked relief of symptoms aa5 19:01 Drug: CEREbyx 500 mg Route: IVPB; Site: left hand; aa5 19:41 Follow up: Response: No adverse reaction; IV Status: Completed infusion; IV Intake: rr5 100ml 19:41 Drug: NS 0.9% 500 ml Route: IV; Rate: bolus; Site: left hand; rr5 21:35 Follow up: IV Status: Completed infusion; IV Intake: 500ml rv Disposition: 09/26/20 19:05 Hospitalization ordered by Tomas Rodriguez for Observation. Preliminary diagnosis is Epilepsy and recurrent seizures - poorly compliant. - Bed requested for Telemetry/MedSurg (observation). - Status is Observation. jl7 - Condition is Fair. - Problem is new. - Symptoms have improved. Signatures: Dispatcher [employer] EDMS Umair Leon, RN RN Blue Rodriguez MD MD cha Rittger, Kevin, MD MD kdr Williams, Irene, RN RN iw Vera Ross, RN RN aa5 Edya, Aayush, MOBILE UI DESIGNER-C MOBILE UI DESIGNER-Cla1 Paty Galvez, RN RN cg María Gregory, RN RN jl7 Tereza Alcaraz Ronaldo, RN RN Tomas Garcias, RN RN rr5 Maura Anderson Corrections: (The following items were deleted from the chart) 19:05 19:05 Hospitalization Ordered by Milton Gómez DO for Observation. Preliminary dominik diagnosis is Epilepsy and recurrent seizures. Bed requested for Telemetry/MedSurg (observation). Status is Observation. Condition is Fair. Problem is new. Symptoms have improved. dominik 19:23 19:05 09/26/2020 19:05 Hospitalization Ordered by Milton Gómez DO for Observation. la1 Preliminary diagnosis is Epilepsy and recurrent seizures - poorly compliant. Bed requested for Telemetry/MedSurg (observation). Status is Observation. Condition is Fair. Problem is new. Symptoms have improved. dominik 22:14 19:23 09/26/2020 19:05 Hospitalization Ordered by Tomas Rodriguez MD for Observation. cg Preliminary diagnosis is Epilepsy and recurrent seizures - poorly compliant. Bed requested for Telemetry/MedSurg (observation). Status is Observation. Condition is Fair. Problem is new. Symptoms have improved. la1 09/27 07:31 11 22:14 09/26/2020 19:05 Hospitalization Ordered by Tomas Rodriguez MD for eb Observation. Preliminary diagnosis is Epilepsy and recurrent seizures - poorly compliant. Bed requested for [facility] ER HOLD. Status is Observation. Condition is Fair. Problem is new. Symptoms have improved. cg 09/27 08:10 07:31 09/26/2020 19:05 Hospitalization Ordered by Tomas Rodriguez MD for Observation. jl7 Preliminary diagnosis is Epilepsy and recurrent seizures - poorly compliant. Bed requested for Telemetry/MedSurg (observation). Status is Observation. Condition is Fair. Problem is new. Symptoms have improved. eb
--- NOTE | 2020-09-26 19:06 | ER ---
Nurse's Notes [facility] Name: Alfie Zavala Age: 30 yrs Sex: Male : 1990 Arrival Date: 09/26/2020 Time: 16:30 Bed 25 Private MD: Diagnosis: Epilepsy and recurrent seizures-poorly compliant Presentation: 09/26 16:31 Chief complaint: EMS states: pt was walking down the road in [facility] [place] [facility], witnessed iw seizure by bystander, pt fell to ground and did hit his head, pt had 3 seizures before EMS arrival and then 7 seizures en route, was given 5 mg versed IM and 5 mg versed IVP, also gave 2 mg Ativan IVP X 2 , pt arrives to ER and was alert, talking, then started actively seizing. Coronavirus screen: At this time, the client does not indicate any symptoms associated with coronavirus-19. Ebola Screen: Patient negative for fever greater than or equal to 101.5 degrees Fahrenheit, and additional compatible Ebola Virus Disease symptoms Patient denies exposure to infectious person. Patient denies travel to an Ebola-affected area in the 21 days before illness onset. No symptoms or risks identified at this time. Initial Sepsis Screen: Does the patient meet any 2 criteria? No. Patient's initial sepsis screen is negative. Does the patient have a suspected source of infection? No. Patient's initial sepsis screen is negative. Risk Assessment: Do you want to hurt yourself or someone else? Patient reports no desire to harm self or others. 16:31 Method Of Arrival: EMS: [facility] iw 16:31 Acuity: KEN 2 iw 16:34 Onset of symptoms was September 26, 2020. Care prior to arrival: IV initiated. 20 GA, in iw the left hand. Triage Assessment: 19:30 General: Appears comfortable. rv Historical: - Allergies: 17:01 No Known Allergies; iw - Home Meds: 16:50 Ambien 12.5 mg Oral tab 1 tab nightly [Active]; clonazepam 0.5 mg Oral tab 3 times per iw day [Active]; diazepam 10 mg Oral tab 1 tab daily prn for Acute Repetitive Seizures, Anxiety [Active]; lamotrigine 200 mg Oral tab 1 tab 2 times per day [Active]; venlafaxine 75 mg Oral tab 1 tab 2 times per day [Active]; topiramate 50 mg Oral CSpX 1 cap twice a day [Active]; Phenytoin 100 mg Oral every 8 hours [Active]; sumatriptan succinate 50 mg oral tab [Active]; - PMHx: 16:50 Depression; Headaches; Seizures; status epilepticus; iw - Immunization history:: Adult Immunizations up to date. - Family history:: not pertinent. - Social history:: Smoking status: unknown. Screenin:01 Abuse screen: Denies threats or abuse. Denies injuries from another. Nutritional iw screening: No deficits noted. Tuberculosis screening: No symptoms or risk factors identified. Fall Risk IV access (20 points). Assessment: 16:45 General: Appears distressed, ill, Behavior is drowsy. Pain: Unable to use pain scale. iw Patient is disoriented. Neuro: Level of Consciousness is confused, post ictal. Cardiovascular: Pulses are all present. Rhythm is sinus tachycardia. Respiratory: Respiratory effort is even, Respiratory pattern is tachypnea. Derm: Skin is dusky. Derm: Skin is clammy, Skin is Skin temperature is cool. 16:50 Reassessment: pt actively seizing, ESCOBAR Block at beside to medicate pt, seizure lasted iw approx 2 minutes. 17:02 Reassessment: pt appears more relaxed, straight cath urine collected by ESCOBAR Block and [facility], sent to lab. 17:15 Reassessment: Seizure activity noted. sg 17:30 Reassessment: pt transported back from [place] with RN escort. sg 17:30 Reassessment: seizure activity noted. sg 17:40 Reassessment: Pt resting in bed with eyes closed, respirations even and unlabored, skin aa5 is pink/warm/dry. Sinus tachycardia on monitor. . 17:45 Reassessment: pt with seizure activity, jerking and shaking X 2 minutes, pt now more iw relaxed, remains on NRB, tachycardic at 145 bpm. 18:22 Reassessment: seizure activity that lasted 1 minute. Pt now drowsy and confused. . aa5 18:24 Respiratory: Airway is patent Respiratory effort is even, unlabored, Respiratory aa5 pattern is regular, symmetrical. 18:24 Neuro: Level of Consciousness is post ictal. Derm: Skin is moist, Skin is normal, Skin aa5 temperature is warm. 18:57 Reassessment: Reassessment: Seizure activity noted that lasted 1 minute. Pt now awake aa5 and A\T\O x 4. Equal and unlabored respirations, skin is normal/warm/dry. . 19:35 Neuro: Seizure activity noted at this time. Type of seizure: grand mal seizure. Seizure rr5 lasted approximately .5 minutes. placed on side lying position, seen and examined by ED provider. 21:23 Reassessment: NOTED SEVERAL EPISODES OF SEIZURE LIKE ACTIVITIES. DR GONZALEZ AWARE, rv REFUSED TO GIVE ATIVAN. Vital Signs: 16:35 BP 105 / 52; Pulse 155; Resp 30 S; Pulse Ox 100% on Non-rebreather mask; iw 17:06 BP 92 / 67; Pulse 131; Resp 24 S; Temp 97.4(TE); Pulse Ox 100% on Non-rebreather mask; iw Pain 0/10; 18:04 BP 92 / 57; Pulse 128; Resp 20 S; Pulse Ox 100% on Non-rebreather mask; aa5 18:44 BP 91 / 33; Pulse 124; Resp 24 S; Pulse Ox 100% on Non-rebreather mask; aa5 19:35 BP 110 / 63; Pulse 121; Resp 23; Pulse Ox 100% ; rr5 19:45 BP 110 / 63; Pulse 98; Resp 20; Pulse Ox 100% ; rr5 20:30 BP 114 / 66; Pulse 110; Resp 17; Pulse Ox 100% on R/A; rv 21:32 BP 125 / 78; Pulse 126; Resp 18; Pulse Ox 100% on R/A; rv [place] Coma Score: 21:32 Eye Response: spontaneous(4). Verbal Response: oriented(5). Motor Response: obeys rv commands(6). Total: 15. ED Course: 16:30 Patient arrived in ED. iw 16:30 Juan Cyr MD is Attending Physician. kdr 16:34 Triage completed. iw 16:48 Umair Leon, RN is Primary Nurse. sg 16:50 Initial lab(s) drawn, by me, sent to lab. 3 17:01 Patient has correct armband on for positive identification. Bed in low position. Side iw rails up X2. Seizure precautions initiated. tripper on. Pulse ox on. NIBP on. 17:10 EKG done, by ED staff, reviewed by Juan Cyr MD. dh3 17:20 CT Head C Spine In Process Unspecified. EDMS 18:42 Attending Physician role handed off by Juan Cyr MD dominik 18:42 Blue Gonzalez MD is Attending Physician. dominik 19:00 Report given to ESCOBAR Marin. aa5 19:04 Milton Gómez DO is Hospitalizing Provider. dominik 19:22 Tomas Rodriguez MD is Hospitalizing Provider. la1 19:30 Arm band placed on right wrist. rv 21:32 No provider procedures requiring assistance completed. IV is patent, with fluids rv infusing freely, Patient admitted, IV remains in place. Administered Medications: 16:58 Drug: Ativan 1 mg Route: IVP; Site: left hand; sg 23:49 Follow up: Response: No adverse reaction; RASS: Alert and Calm (0) wh 17:12 Drug: NS 0.9% 1000 ml Route: IV; Rate: 1 bolus; Site: left hand; sg 18:00 Follow up: IV Status: Completed infusion; IV Intake: 1000ml aa5 17:50 Drug: CEREbyx 1 grams Route: IVPB; Site: left hand; aa5 18:05 Follow up: Response: No adverse reaction; IV Status: Completed infusion aa5 17:51 Drug: Ativan 1 mg Route: IVP; Site: left hand; aa5 17:53 Follow up: Response: No adverse reaction; Marked relief of symptoms aa5 17:53 Drug: NS 0.9% 1000 ml Route: IV; Rate: 1 bolus; Site: left hand; aa5 19:19 Follow up: IV Status: Completed infusion; IV Intake: 1000ml aa5 18:22 Drug: Ativan 1 mg Route: IVP; Site: left hand; aa5 18:24 Follow up: Response: No adverse reaction; Marked relief of symptoms aa5 18:57 Drug: Ativan 1 mg Route: IVP; Site: left hand; aa5 18:59 Follow up: Response: No adverse reaction; Marked relief of symptoms aa5 19:01 Drug: CEREbyx 500 mg Route: IVPB; Site: left hand; aa5 19:41 Follow up: Response: No adverse reaction; IV Status: Completed infusion; IV Intake: rr5 100ml 19:41 Drug: NS 0.9% 500 ml Route: IV; Rate: bolus; Site: left hand; rr5 21:35 Follow up: IV Status: Completed infusion; IV Intake: 500ml rv Intake: 18:00 IV: 1000ml; Total: 1000ml. aa5 19:19 IV: 1000ml; Total: 2000ml. aa5 19:41 IV: 100ml; Total: 2100ml. rr5 21:35 IV: 500ml; Total: 2600ml. rv Outcome: 19:05 Decision to Hospitalize by Provider. dominik 22:00 Condition: good rv 22:00 Admitted to ER Hold. Please see [facility] for further documentation. rv 22:00 Instructed on the need for admit. 09/27 08:10 Patient left the ED. jl7 Signatures: Dispatcher [employer] EDMS Umair Leon, RN RN Blue Rodriguez MD MD cha Rittger, Kevin, MD MD kdr Williams, Irene RN Vera Wyatt RN RN aa5 Aayush Ruiz, PRODUCT DEVELOPER-C PRODUCT DEVELOPER-Cla1 María Gregory RN RN jl7 [facility] Maura Anderson Ronaldo RN RN Tomas Garcias, RN RN rr5 Corrections: (The following items were deleted from the chart) 09/26 16:46 16:35 Pulse 155bpm; Resp 30bpm; Spontaneous; Pulse Ox 100% Non-rebreather mask; iw iw 17:02 16:55 Reassessment: pt actively seizing, ESCOBAR Block at beside to medicate pt, seizure iw lasted approx 2 minutes iw 18:46 18:44 Pulse 124bpm; Resp 24bpm; Spontaneous; Pulse Ox 100% Non-rebreather mask; aa5 aa5 19:18 18:57 Reassessment: aa5 aa5
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
[2020-09-26] MEDS ORDERED: NA CHLORIDE 0.9% 500 ML ONE (19:47)
[2020-09-26] MEDS ORDERED: ACETAMINOPHEN 500 MG TAB PO PRN (22:58)
[2020-09-26] MEDS: NA CHLORIDE 0.9% 1,000 ML IV SCH (22:58)
[2020-09-26] MEDS ORDERED: ONDANSETRON 4 MG/2 ML VIAL IV PRN (22:58)
[2020-09-26] MEDS: LORazepam 2 MG/ML VIAL IV PRN (23:30)
[2020-09-26] MEDS ORDERED: PHENYTOIN ER 100 MG CAP PO ONE (23:35)
[2020-09-27 00:17] VITALS: BMI 34.8
[2020-09-27 04:58] LABS: Absolute Lymphocytes (CBC) 3.5 K/uL (0.7-4.9); Basophils % 0.8 % (0-1.3); Hematocrit 42.7 % (39.6-49.0); Lymphocytes % 38.8 % (15.3-44.8); MPV 9.3 fL (7.6-11.3); RBC Red Blood Cell Count 4.74 M/uL (4.33-5.43)
[2020-09-27 06:22] LABS: BUN Blood Urea Nitrogen 7 mg/dL (7-18); Bicarbonate 21 mmol/L (21-32); Glucose Level 100 mg/dL (74-106); Magnesium 2.2 mg/dL (1.8-2.4); Potassium 3.9 mmol/L (3.5-5.1); Sodium Level 141 mmol/L (136-145)
[2020-09-27] MEDS ORDERED: LORazepam 2 MG/ML VIAL ONE ×3 (06:42→12:13)
[2020-09-27] MEDS: LORazepam 2 MG/ML VIAL IV PRN ×4 (07:57→12:10)
[2020-09-27] MEDS ORDERED: levETIRAcetam 1,000 MG in NA CHLORIDE 0.9% 100 ML IV ONE (08:47)
[2020-09-27] MEDS ORDERED: POTASSIUM CL SA 10 MEQ TAB PO ONE (09:00)
[2020-09-27] MEDS ORDERED: ENOXAPARIN 40 MG/0.4 ML SQ SCH (09:00)
[2020-09-27] MEDS ORDERED: LORazepam 2 MG/ML VIAL IV ONE (09:59)
[2020-09-27] MEDS ORDERED: INFLUENZA VACCINE (for 3y+) 0.5 ML DOSE IMVAC ONE (10:00)
[2020-09-27] MEDS: NA CHLORIDE 0.9% 1,000 ML IV SCH (10:04)
[2020-09-27] MEDS: PHENYTOIN NA 100 MG/2 ML IV SCH ×2 (10:04→16:47)
[2020-09-27] MEDS ORDERED: levETIRAcetam 500 MG in NA CHLORIDE 0.9% 100 ML IV SCH (12:00)
[2020-09-27 12:39] LABS: Basophils % 0.8 % (0-1.3); Hematocrit 39.6 % (39.6-49.0); Lymphocytes % 33.1 % (15.3-44.8); RBC Red Blood Cell Count 4.46 M/uL (4.33-5.43)
[2020-09-27 12:51] LABS: BUN Blood Urea Nitrogen 7 mg/dL (7-18); Bicarbonate 23 mmol/L (21-32); CKMB Creatine Kinase MB < 1.0 ng/mL (0.3-3.6); Glucose Level 87 mg/dL (74-106); Potassium 3.7 mmol/L (3.5-5.1); Sodium Level 141 mmol/L (136-145)
[2020-09-27] MEDS ORDERED: levETIRAcetam 500 MG in NA CHLORIDE 0.9% 100 ML IV ONE (12:52)
[2020-09-27 13:28] VITALS: O2SAT 98
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
[2020-09-27 17:23] VITALS: BP 123/63; TEMP 97.6
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
[2020-09-27] MEDS ORDERED: PHENYTOIN ER 100 MG CAP PO SCH (21:00)
--- NOTE | 2020-09-29 07:49 | EKG ---
Test Date: 2020-09-26 Test Time: 17:08:07 [employer]: EMMA MEASUREMENT RESULTS: Intervals: Rate: 135 IA: 132 QRSD: 76 QT: 280 QTc: 420 [place]: P: 32 IA: 132 QRS: 18 T: 13 INTERPRETIVE STATEMENTS: Sinus tachycardia Possible Inferior infarct, age undetermined Abnormal ECG Compared to ECG 07/30/2020 04:55:56 No significant changes Electronically Signed On 09-29-20 07:41:51 [employer] by Jamey Pace
--- NOTE | 2020-10-01 07:50 | EEG ---
CHART: [id number] TEST ID#: [id number] DATE OF STUDY: 09/27/2020 THE EEG WAS RECORDED PORTABLE IN THE PATIENT'S ROOM ON A 17 CHANNEL MACHINE. ELECTRODES WERE APPLIED IN THE USUAL MANNER USING THE INTERNATIONAL 10-20 SYSTEM. THE WAKING BACKGROUND RHYTHM IN THIS RECORD CONSISTS OF VERY WELL DEVELOPED AND WELL ORGANIZED WAVES OF 10 HZ., MAXIMAL IN THE POSTERIOR HEAD REGIONS WHICH ATTENUATE NORMALLY WITH EYE OPENING. EXCESS LOW-VOLTAGE 18-22 HZ ACTIVITY IS EXPRESSED IN ALL REGIONS. ONE CLINICAL EVENT OCCURRED. THE PATIENTHAD RIGHT HEAD DEVIATION, WITH RIGHT ARM EXTENSION, LEFT ARM FLEXION OF THE UPPER AND LOWER EXTREMITIES WAS SHAKING. THE EEG REMAINED NORMAL DURING THAT EPISODE. THERE ARE NO FOCAL OR LATERALIZING FEATURES. NO EPILEPTIFORM ACTIVITY APPEARS. SLEEP DID NOT OCCUR. HYPERVENTILATION WAS NOT PERFORMED. PHOTIC STIMULATION PRODUCED POOR DRIVING BILATERALLY. IMPRESSION: NORMAL EEG FOR THE AGE OF THE PATIENT IN [place]. THE CLINICAL SEIZURE CAPTURED DURING THE RECORDINGWAS NOT ASSOCIATED WITH EPILEPTIFORM OR ABNORMAL ELECTROENCEPHALOGRAM ACTIVITY. THEREFORE, THE EVENT WAS NON-EPILEPTIC. SUCH EVENT DO NOT USUALLY RESPOND TO ANTIPHILETIC MEDICATIONS.
== END 2020-09-27 17:40 | disposition short-term general hospital (02) | DRG 101 ==
LOC: ER 16:36 → ERHOLD 20:49 → 2ND 09-27 08:04 → OBSVTOIN 09-27 08:07
PROVIDERS: ADMIT Hospitalist; ATTEND Hospitalist
DX: G40.901 Epilepsy, unspecified, not intractable, with status epilepticus (principal); R00.0 Tachycardia, unspecified; W18.30XA Fall on same level, unspecified, initial encounter; Z90.49 Acquired absence of other specified parts of digestive tract; Z79.899 Other long term (current) drug therapy; Z91.19 Patient's noncompliance with other medical treatment and regimen; Z20.828 Contact with and (suspected) exposure to other viral communicable diseases
CPT/HCPCS: 36415; 70450; 72125; 80048; 80076; 80185; 80307; 80320; 80329; 81003; 82085; 82550; 82553; 83605; 83735; 84439; 84443; 85025; 85610; 85730; 93005; 95816; 96361; 96365; 96375; 99285; J1165; J1650; J1953; J7030; J7040; Q2009; U0002

== ENCOUNTER 2021-06-06 07:18 | Inpatient (IN) | payer SELFPAY ==
--- OUTSIDE RECORDS SUMMARY | 2021-06-06 07:22 | XMS REPORT | Continuity of Care Document ---
:1990 Author Organization [facility] t Address [address] [place] [address] Care Team Providers Name Role Phone DudleyJohanaalexandria Richey Primary Care Physician Sina Rossi MD Attending Clinician [phone] iNecy Cardenas MD Attending Clinician Rosemary Nascimento MD Attending Clinician SINA ROSSI Attending Clinician Unavailable SHELBIE AUGUST Attending Clinician Unavail able FRANCISCA BRUCE Attending Clinician Unavailable Niecy CARDENAS Admitting Clinician Unavailable SHELBIE AUGUST Admitting Clinician Unavail able FRANCISCA BRUCE Admitting Clinician Unavailable Problems Condition Condition Condition Status Onset Resolution Last Treating Co mments Source Name Details Category Date Date Treatment Clinician Date Status Status Disease Active 2017-[address] [facility] epilepticu epilepticu 0-27 [facility] - s s 00:00: Medical 00 [place] Acute Acute Disease Active 2017-[address] [facility] respirator respirator 0-27 [facility] kes - y failure y failure 00:00: [facility] tyrone with with 00 Center hypoxia hypoxia Essential Essential Disease Active 2017-[address] [facility] hypertensi hypertensi 0-27 [facility] k[facility] - on on 00:00: Medical 00 [place] Acute Acute Disease Active 2017-[address] [facility] encephalop encephalop 0-27 [facility] k[facility] - athy athy 00:00: Medical 00 Center Obesity Obesity Disease Active [facility] 08[facility] 00 [place] 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 Social History Social Habit Start Date Stop Date Quantity Comments Source Sex Assigned At [facility] Alcohol intake 2015-11-01 2015[facility]11[facility]01 [facility] non-drinker of Medical Ce nter alcohol (finding) Smoking Status Start Date Stop Date Source Never smoker [facility] Medications Ordered Filled Start Stop Current Ordering Indication Dosage Frequency Signature Comments Components Source Medication Medication Date Date Medication? Clinician (SIG) Name Name lamoTRIgine 2019-11- No 200mg Q.5D Take [address] [facility] (LAMICTAL) 1-16 11-16 mg by [facility] - 200 MG 11:34: 00:00 mouth 2 Medical tablet 25 :00 (two) Center times daily. topiramate 2019-11- No 50mg Q.5D Take [address] [facility] (TOPAMAX) 1-16 11-16 by mouth 2 Ana es - 50 MG 11:34: 00:00 (two) Medical tablet 25 :00 times Center daily. phenytoin 2019-11 2020- No 200mg Q.[id number] Take [address] [facility] (DILANTIN) 1-16 11-16 [id number] mg by L u[facility] - 100 MG ER 11:34: 00:00 3D mouth 3 Medi tyrone capsule 25 :00 (three) Center times daily. venlafaxine 2019-11 2020- No 75mg Q.5D Take [address] [facility] (EFFEXOR) 1-16 11-16 by mouth 2 Ana es - 75 MG 11:34: 00:00 (two) Medical tablet 25 :00 times Center daily. SUMAtriptan 2019-11- No 50mg Take [address] [facility] (IMITREX) -16 16 by mouth [facility] - 50 MG 11:34: 00:00 once as Medical tablet 22 :00 needed for Center Headaches. FLUoxetine 2019-11- No 40mg QD Take [address] [facility] (PROZAC) 40 11-3016 by mouth Ana es - MG capsule 11:34: 00:00 daily. Medi tyrone 22 :00 Center zolpidem 2019-11- No 12.5mg Take 12.[address] (AMBIEN CR) -16 -16 mg by [facility] - 12.5 MG CR 11:34: 00:00 mouth Medic al tablet 22 :00 every Center night as needed for Insomnia. clonazePAM 2019-11- No .5mg Take 0.[address] (KlonoPIN) 16 -16 mg by [facility] - 0.5 MG 11:34: 00:00 mouth 3 Medical tablet 22 :00 (three) Center times daily as needed for Anxiety. topiramate 2019-11 Yes 50mg Q.5D Take 1 [facility] (TOPAMAX) 1-16 tablet (50 [facility] - 50 MG 00:00: mg total) Medical tablet 00 by mouth 2 Center (two) times daily. venlafaxine 2019-11 Yes 75mg Q.5D Take [address] [facility] (EFFEXOR) 1-16 tablet (75 [facility] - 75 MG 00:00: mg total) Medical tablet 00 by mouth 2 Center (two) times daily. phenytoin 2019-11 Yes 200mg Q.18509263 Take [address] [facility] (DILANTIN) -16 [id number] capsules [facility] - 100 MG ER 00:00: 3D (200 mg Medic al capsule 00 total) by Center mouth 3 (three) times daily. lamoTRIgine 2019-11 Yes 200mg Q.5D Take [address] [facility] (LaMICtal) 1-16 tablet [facility] - 200 MG 00:00: (200 mg Medical tablet 00 total) by Center mouth 2 (two) times daily. gabapentin 2017-11- No 300mg Take [address] [facility] (NEURONTIN) 0-30 11-16 capsule Luke s - 300 MG 00:00: 00:00 (300 mg Medical capsule 00 :00 total) by Center mouth 3 (three) times daily as needed (anxiety). mirtazapine 2019- 15mg QD Take [address] [facility] (REMERON) 08-12 tablet (15 Ana es - 15 MG 00:00: 00:00 mg total) Medica l tablet 00 :00 by mouth Center nightly. lidocaine 2019- No 1{patch Q24H Place [address] (LIDODERM) 08-12 } patch onto [facility] kes - 5 % patch 00:00: 00:00 the skin Med ical 00 :00 daily Center Remove & Discard patch within 12 hours or as directed by For back pain. diazePAM 10mg Take [address] [facility] (VALIUM) 5 08-12 tablets [facility] - MG tablet 00:00: 00:00 (10 mg Medic al 00 :00 total) by Center mouth every 8 (eight) hours as needed for Anxiety. Max Daily Amount: 30 mg Immunizations Ordered Immunization Filled Immunization Date Status Commen ts Source Name Name Influenza Four-QIV 2018-09-12 Completed [facility] - Non-PF 5+ YR 00:00:00 Medical Cent er Vital Signs Vital Name Observation Time Observation Value Comments Source Systolic blood 2020-09-30 12:00:00 111 mm[Hg] [facility] pressure [facility] Diastolic blood 2020-09-30 12:00:00 75 mm[Hg] [facility] S [facility] pressure [facility] Heart rate 2020-09-30 12:00:00 92 /min [facility] Body temperature 2020-09-30 12:00:00 36.33 Hortencia [facility] Respiratory rate 2020-09-30 12:00:00 18 /min [facility] Oxygen saturation in 2020-09-30 12:00:00 99 /min [facility] Arterial blood by Medical Ce nter Pulse oximetry Body height 2020-09-29 05:00:00 177.8 cm [facility] Body weight 2020-09-29 05:00:00 113.399 kg [facility] BMI 2020-09-29 05:00:00 35.87 kg/m2 [facility] Procedures Procedure Date / Time Performed Performing Clinician Sour e EEG 12-26 HR CONTINUOUS 2020-09-30 06:14:00 Elizabeth Nascimento [facility] - MONITORING WITH VIDEO Medical Ce nter BASIC METABOLIC PANEL 2020-09-30 06:09:[address] [facility] () [facility] MAGNESIUM 2020-09-30 06:09:00 Elizabeth Nascimento [facility] CBC W/PLT COUNT & AUTO 2020-09-30 06:09:00 Elizabeth Nascimento [facility] EEG 12-26 HR CONTINUOUS 2020-09-29 06:29:00 [facility] MONIT[facility]ING WITH VIDEO Medical Ce nter BASIC METABOLIC PANEL 2020-09-29 05:52:[address] [facility] () [facility] MAGNESIUM 2020-09-29 05:52:00 Elizabeth Nascimento [facility] CBC W/PLT COUNT & AUTO 2020-09-29 05:52:00 Elizabeth Nascimento [facility] RAPID DRUG SCREEN, URINE 2020-09-28 14:20:00 Elizabeth Nascimento [facility] XR WRIST 2 VIEWS LEFT 2020-09-28 11:31:00 [facility] X[facility] HAND 2 VIEWS LEFT 2020-09-28 11:30:00 [facility] SARS-COV2/RT-PCR ([facility] & 2020-09-28 10:05:00 Genna Cardenas [facility] BASIC METABOLIC PANEL 2020-09-28 04:24:00 Genna Cardenas [facility] () [facility] HEPATIC FUNCTION PANEL 2020-09-28 04:24:00 Genna Cardenas [facility] CBC W/PLT COUNT & AUTO 2020-09-28 04:24:00 Genna Cardenas [facility] Plan of Care Planned Activity Planned Date Details Comments Source Future Scheduled 2021-07-16 INFLUENZA VACCINE [facility] - Test 00:00:00 (Season Ended) [code Medical Center = INFLUENZA VACCINE (Season Ended)] Future Scheduled [address] [facility] - Test 00:00:00 (procedure) [code = Medical Center [id number]] Future Scheduled 2007-01-19 DTAP/TDAP/TD [facility] - Test 00:00:00 VACCINES (1 - Tdap) Medical Center [code = DTAP/TDAP/TD VACCINES (1 - Tdap)] Future Scheduled 2006-01-[address] [facility] - Test 00:00:00 SCREENING [code = [facility] nt HEPATITIS C SCREENING] Future Scheduled 2000 COVID-19 VACCINE (1) [facility] - Test 00:00:00 [code = COVID-[address] VACCINE (1)] Results Test Description Test Time Test Comments Results Result Sour e Comments EEG W VID 11-09-- HR CONTINUOUS 6 MONITORING 13:05:00 [facility] (VEEG[facility] - MEDICAL CENTERName: MARYNANE ZAVALA : 1990 Sex: [facility] ELECT[facility]AL[facility] REPORT DATE OF STUDY: 09/30/2020DATE OF REPORT: 09/30/2020ACC: [id number]: [id number] time: 09/29/2020 @ 12:59Stop time: 09/30/2020 @ 12:59ICD-10: R56.9CPT Code: 29794 HISTORY: seizure disorder MEDICATIONS THAT COULD AFFECT EEG: phenytoin, lamotrigine, topiramate TECHNICAL SUMMARY: This is a digital video-EEG recorded with 32 input channels reviewed with bipolar and referential montages using the modified combinatorial system nomenclature. Patient was continuously monitored by qualified technologists and data was available to faculty at any time. DESCRIPTION OF RECORD: During the maximally alert state a 9-10 Hz posterior dominant rhythm was seen that was symmetric, reactive to eye opening and well regulated. More anteriorly, low voltage frontocentral beta predominated. Drowsiness was characterized by alpha attenuation and increased frontocentral theta, vertex sharp transients and POSTS. Stage 2 sleep was reached characterized by symmetric sleep spindles and K-complexes. REM sleep was noted also. HV: Hyperventilation was not performed. PHOTIC STIMULATION: Photic stimulation was not done. IMPRESSION: Normal Awake/Sleep video EEG CLINICAL CORRELATION: An EEG without epileptiform discharges does not exclude the possibility of epilepsy. It the clinical suspicion of epilepsy remains, consider additional EEG recordings. Joao Blum M.D., FACNSProfessor of NeurologyRancho Los Amigos National Rehabilitation CenterDirector, [facility] Epilepsy [facility] Neurophysiology Lab 12-26 HR 2020-09-15 Interface, External Ris [facility] St Continuous 6 In - 09/30/2020 1:05 PM [facility] - [facility] with 13:05:00 [facility] Video ELECTROENCEPHALOGRAM Cent er REPORT DATE OF STUDY: 09/30/2020DATE OF REPORT: 09/30/2020ACC: [id number]: [id number] time: 09/29/2020 @ 12:59Stop time: 09/30/2020 @ 12:59ICD-10: R56.9CPT Code: 94591 HISTORY: seizure disorder MEDICATIONS THAT COULD AFFECT EEG: phenytoin, lamotrigine, topiramate TECHNICAL SUMMARY: This is a digital video-EEG recorded with 32 input channels reviewed with bipolar and referential montages using the modified combinatorial system nomenclature. Patient was continuously monitored by qualified technologists and data was available to faculty at any time. DESCRIPTION OF RECORD: During the maximally alert state a 9-10 Hz posterior dominant rhythm was seen that was symmetric, reactive to eye opening and well regulated. More anteriorly, low voltage frontocentral beta predominated. Drowsiness was characterized by alpha attenuation and increased frontocentral theta, vertex sharp transients and POSTS. Stage 2 sleep was reached characterized by symmetric sleep spindles and K-complexes. REM sleep was noted also. HV: Hyperventilation was not performed. PHOTIC STIMULATION: Photic stimulation was not done. IMPRESSION: Normal Awake/Sleep video EEG CLINICAL CORRELATION: An EEG without epileptiform discharges does not exclude the possibility of epilepsy. It the clinical suspicion of epilepsy remains, consider additional EEG recordings. Joao Blum M.D., FACNSProfessor of NeurologyRancho Los Amigos National Rehabilitation CenterDirector, [facility] Neurophysiology Lab Basic Metabolic Panel 2020-09-30 07:16:00 Test Item Value Reference Range Interpretation Comme nts Sodium (test code = 138 meq/L 351-787 2872-2) Potassium (test code = 4.1 meq/L 3.5-5.1 2823-3) Chloride (test code = 110 meq/L 98-107 H 2075-0) CO2 (test code = 8-9) 22 meq/L 22-29 BUN (test code = 3094-0) 11 mg/dL 7-21 Creatinine (test code = 0.82 mg/dL 0.57-1.25 2160-0) Glucose (test code = 91 mg/dL 70-105 2345-7) Calcium (test code = 9.1 mg/dL 8.4-10.2 76546-4) EGFR (test code = 14124-2) 109 mL/min/1.73 sq m ESTIMATED GFR IS NOT ACCURATE CREATININE HAI SANDEEP IN PREDICTING GLOMERULAR FILT RATION RATE. ESTIMATED GFR IS NOT APPLICAB LE FOR DIALYSIS PATIEN TS. KASEY (test code = KASEY) [employer] Operator ID - [id number] Lab Interpretation (test Abnormal code = 22256-4) [facility] CenterMagnesium2020-11-16 07:16:00 Test Item Value Reference Range Interpretation Comments Magnesium (test code = 2.1 mg/dL 1.6-2.6 11496-8) KASEY (test code = KASEY) [employer] Operator ID - EDASI Lab Interpretation (test Normal code = 44578-8) [facility] CenterBASIC METABOLIC [id number] 07:16:00 Test Item Value Reference Range Interpretation Comments SODIUM (BEAKER) 138 meq/L 136-145 (test code = 381) POTASSIUM (BEAKER) 4.1 meq/L 3.5-5.1 (test code = 379) CHLORIDE (BEAKER) 110 meq/L 98-107 H (test code = 382) CO2 (BEAKER) (test 22 meq/L 22-29 code = 355) BLOOD UREA NITROGEN 11 mg/dL 7-21 (BEAKER) (test code = 354) CREATININE (BEAKER) 0.82 mg/dL 0.57-1.25 (test code = 358) GLUCOSE RANDOM 91 mg/dL 70-105 (BEAKER) (test code = 652) CALCIUM (BEAKER) 9.1 mg/dL 8.4-10.2 (test code = 697) EGFR (BEAKER) (test 109 mL/min/1.73 ESTIM ATED GFR IS code = 1092) sq m NOT ACCURATE CREATININE CLEARANCE IN PREDICTING GLOMERULAR FILTRATION RATE . ESTIMATED GFR I S NOT APPLICABLE FOR DIALYSIS PATIEN TS. [employer] Operator ID - [id number] 07:16:00 Test Item Value Reference Range Interpretation Comments MAGNESIUM (BEAKER) (test code = 2.1 mg/dL 1.6-2.6 627) [employer] Operator ID - EDASICBC with platelet count + automated [id number] 06:35:00 Test Item Value Reference Range Interpretation Comments WBC (test code = 7.1 See_Comment [Automated message] 6690-2) The system [employer] generated this result transmitted ref erence range: 3.5 - 10 .5 K/L. The refe rence range was not u sed to interpret this result as normal/abnor mal. RBC (test code = 789-8) 5.02 See_Comment [Au tomated message] The system [employer] generated this result transmitted ref erence range: 4.63 - 6 .08 M/L. The refe rence range was not u sed to interpret this result as normal/abnor mal. MCHC (test code = 33.3 See_Comment [Automate d message] 786-4) The system [employer] generated this result transmitted ref erence range: 32.3 - 3 6.5 GM/DL. The refe rence range was not u sed to interpret this result as normal/abnor mal. Hematocrit (test code = 44.7 % 40.1-51 4544-3) MCV (test code = 787-2) 89.0 fL 79-92.2 MCH (test code = 785-6) 29.7 pg 25.7-32.2 RDW (test code = 788-0) 12.2 % 11.6-14.4 Platelets (test code = 219 See_Comment [Aut omated message] 777-3) The system [employer] generated this result transmitted ref erence range: 150 - 45 0 K/CU MM. The referen ce range was not used to interpret this result as normal/abnor mal. MPV (test code = 10.4 fL 9.4-12.4 02195-1) nRBC (test code = 413) 0 See_Comment [Aut omated message] The system [employer] generated this result transmitted ref erence range: 0 - 0 /1 00 WBC. The reference r king was not used to int erpret this result as normal/abnormal . % Neutros (test code = 49 % 429) % Lymphs (test code = 42 % 430) % Monos (test code = 8 % 431) % Eos (test code = 432) 1 % % Baso (test code = 1 % 437) # Neutros (test code = 3.47 See_Comment [Aut omated message] 670) The system [employer] generated this result transmitted ref erence range: 1.78 - 5 .38 K/L. The refe rence range was not u sed to interpret this result as normal/abnor mal. # Lymphs (test code = 2.96 See_Comment [Auto mated message] 414) The system [employer] generated this result transmitted ref erence range: 1.32 - 3 .57 K/L. The refe rence range was not u sed to interpret this result as normal/abnor mal. # Monos (test code = 0.55 See_Comment [Autom ated message] 415) The system [employer] generated this result transmitted ref erence range: 0.30 - 0 .82 K/L. The refe rence range was not u sed to interpret this result as normal/abnor mal. # Eos (test code = 416) 0.07 See_Comment [Au tomated message] The system [employer] generated this result transmitted ref erence range: 0.04 - 0 .54 K/L. The refe rence range was not u sed to interpret this result as normal/abnor mal. # Baso (test code = 0.05 See_Comment [Automa christine message] 417) The system [employer] generated this result transmitted ref erence range: 0.01 - 0 .08 K/L. The refe rence range was not u sed to interpret this result as normal/abnor mal. Immature 0 % 0-1 Granulocytes-Relative (test code = 2801) [facility] W/PLT COUNT & AUTO [id number] 06:35:00 Test Item Value Reference Range Interpretation Comments WHITE BLOOD CELL COUNT (BEAKER) 7.1 K/ L 3.5-10.5 (test code = 775) RED BLOOD CELL COUNT (BEAKER) 5.02 M/ L 4.63-6.08 (test code = 761) HEMOGLOBIN (BEAKER) (test code = 14.9 GM/DL 13.7-17.5 410) HEMATOCRIT (BEAKER) (test code = 44.7 % 40.1-51.0 411) MEAN CORPUSCULAR VOLUME (BEAKER) 89.0 fL 79.0-92.2 (test code = 753) MEAN CORPUSCULAR HEMOGLOBIN 29.7 pg 25.7-32.2 (BEAKER) (test code = 751) MEAN CORPUSCULAR HEMOGLOBIN CONC 33.3 GM/DL 32.3-36.5 (BEAKER) (test code = 752) RED CELL DISTRIBUTION WIDTH 12.2 % 11.6-14.4 (BEAKER) (test code = 412) PLATELET COUNT (BEAKER) (test 219 K/CU MM 150-450 code = 756) MEAN PLATELET VOLUME (BEAKER) 10.4 fL 9.4-12.4 (test code = 754) NUCLEATED RED BLOOD CELLS 0 /100 WBC 0-0 (BEAKER) (test code = 413) NEUTROPHILS RELATIVE PERCENT 49 % (BEAKER) (test code = 429) LYMPHOCYTES RELATIVE PERCENT 42 % (BEAKER) (test code = 430) MONOCYTES RELATIVE PERCENT 8 % (BEAKER) (test code = 431) EOSINOPHILS RELATIVE PERCENT 1 % (BEAKER) (test code = 432) BASOPHILS RELATIVE PERCENT 1 % (BEAKER) (test code = 437) NEUTROPHILS ABSOLUTE COUNT 3.47 K/ L 1.78-5.38 (BEAKER) (test code = 670) LYMPHOCYTES ABSOLUTE COUNT 2.96 K/ L 1.32-3.57 (BEAKER) (test code = 414) MONOCYTES ABSOLUTE COUNT (BEAKER) 0.55 K/ L 0.30-0.82 (test code = 415) EOSINOPHILS ABSOLUTE COUNT 0.07 K/ L 0.04-0.54 (BEAKER) (test code = 416) BASOPHILS ABSOLUTE COUNT (BEAKER) 0.05 K/ L 0.01-0.08 (test code = 417) IMMATURE GRANULOCYTES-RELATIVE 0 % 0-1 PERCENT (BEAKER) (test code = 2801) EEG W VID 12-26 HR CONTINUOUS MONITORING (VEEG)2020-09-29 14:32:00Reason for exam:->Seizures [facility] : 1990 [facility] REPORT Name: Maryanne Zavala ACC: [id number] DATE OF TEST: 09/28/20 - 09/29/20 DATE OF REPORT: 09/29/20 Start time/date: 11:46 AM 09/28/20 Stop time/date: 12:59 PM 09/29/20 ICD-10: R56.9 CPT Code: 55724 HISTORY: 30 y/o M s/p seizures x2. MEDICATIONS: levetiracetam, fosphenytoin, lamotrigine, topiramate. TECHNICAL SUMMARY: This is a digital video EEG recorded with 32 input channels reviewed with bipolar and referential montages using the modified combinatorial system nomenclature. The study was interrupted between 9:59 PM and 10:22 PM. DESCRIPTION OF RECORD: During the maximally alert state, a 9.5 Hz posterior dominant rhythm was seen that was symmetric, reactive to eye-opening and external stimuli, and well regulated. Diffuse low voltage beta activity was seen occasionally throughout the recording. Drowsiness was characterized by alpha attenuation and increased frontocentral theta. Symmetric sleep spindles and K-complexes were seen during stage 2 NREM sleep. EKG artifact is seen throughout the recording on multiple posterior leads. HV: was not done. PHOTIC STIMULATION: was not done. EKG: Sinus tachycardia. IMPRESSION: This is a normal continuous video EEG that captures wakefulness and sleep. No seizures or epileptiform discharges were seen. Davis Cintron M.D., Ph.D. Neurophysiology/Epilepsy Attending EEG 12-26 HR Continuous Monitoring with [id number] 14:32:00Interface, External Ris In - 09/29/2020 2:32 PM [facility] Video EEG REPORT Name: Maryanne Zavala ACC: [id number] DATE OF TEST: 09/28/20 - 09/29/20 DATE OF REPORT: 09/29/20 Start time/date: 11:46 AM 09/28/20 Stop time/date: 12:59 PM 09/29/20 ICD-10: R56.9 CPT Code: 54688 HISTORY: 30 y/o M s/p seizures x2. MEDICATIONS: levetiracetam, fosphenytoin, lamotrigine, topiramate. TECHNICAL SUMMARY: This is a digital video EEG recorded with 32 input channels reviewed with bipolar and referential montages using the modified [employer] system nomenclature. The study was interrupted between 9:59 PM and 10:22 PM. DESCRIPTION OF RECORD: During the maximally alert state, a 9.5 Hz posterior dominant rhythm was seen that was symmetric, reactive to eye- opening and external stimuli, and well regulated. Diffuse low voltage beta activity was seen occasionally throughout the recording. Drowsiness was characterized by alpha attenuation and increased frontocentral theta. Symmetric sleep spindles and K-complexes were seen during stage 2 NREM sleep. EKG artifact is seen throughout the recording on multiple posterior leads. HV: was not done. PHOTIC STIMULATION: was not done. EKG: Sinus tachycardia. IMPRESSION: This is a normal continuous video EEG that captures wakefulness and sleep. No seizures or epileptiform discharges were seen. Davis Cintron M.D., Ph.D. Neurophysiology/Epilepsy Attending [facility] METABOLIC [id number] 07:17:00 Test Item Value Reference Range Interpretation Comments SODIUM (BEAKER) 138 meq/L 136-145 (test code = 381) POTASSIUM (BEAKER) 4.0 meq/L 3.5-5.1 (test code = 379) CHLORIDE (BEAKER) 110 meq/L 98-107 H (test code = 382) CO2 (BEAKER) (test 22 meq/L 22-29 code = 355) BLOOD UREA NITROGEN 8 mg/dL 7-21 (BEAKER) (test code = 354) CREATININE (BEAKER) 0.81 mg/dL 0.57-1.25 (test code = 358) GLUCOSE RANDOM 90 mg/dL 70-105 (BEAKER) (test code = 652) CALCIUM (BEAKER) 8.5 mg/dL 8.4-10.2 (test code = 697) EGFR (BEAKER) (test 110 mL/min/1.73 ESTIM ATED GFR IS code = 1092) sq m NOT ACCURATE CREATININE CLEARANCE IN PREDICTING GLOMERULAR FILTRATION RATE . ESTIMATED GFR I S NOT APPLICABLE FOR DIALYSIS PATIEN TS. [employer] Operator ID - [id number] 07:17:00 Test Item Value Reference Range Interpretation Comments MAGNESIUM (BEAKER) (test code = 1.9 mg/dL 1.6-2.6 627) [employer] Operator ID - [id number] W/PLT COUNT & AUTO [id number] 06:25:00 Test Item Value Reference Range Interpretation Comments WHITE BLOOD CELL COUNT (BEAKER) 6.3 K/ L 3.5-10.5 (test code = 775) RED BLOOD CELL COUNT (BEAKER) 4.62 M/ L 4.63-6.08 L (test code = 761) HEMOGLOBIN (BEAKER) (test code = 13.9 GM/DL 13.7-17.5 410) HEMATOCRIT (BEAKER) (test code = 41.3 % 40.1-51.0 411) MEAN CORPUSCULAR VOLUME (BEAKER) 89.4 fL 79.0-92.2 (test code = 753) MEAN CORPUSCULAR HEMOGLOBIN 30.1 pg 25.7-32.2 (BEAKER) (test code = 751) MEAN CORPUSCULAR HEMOGLOBIN CONC 33.7 GM/DL 32.3-36.5 (BEAKER) (test code = 752) RED CELL DISTRIBUTION WIDTH 12.2 % 11.6-14.4 (BEAKER) (test code = 412) PLATELET COUNT (BEAKER) (test 209 K/CU MM 150-450 code = 756) MEAN PLATELET VOLUME (BEAKER) 10.6 fL 9.4-12.4 (test code = 754) NUCLEATED RED BLOOD CELLS 0 /100 WBC 0-0 (BEAKER) (test code = 413) NEUTROPHILS RELATIVE PERCENT 48 % (BEAKER) (test code = 429) LYMPHOCYTES RELATIVE PERCENT 42 % (BEAKER) (test code = 430) MONOCYTES RELATIVE PERCENT 9 % (BEAKER) (test code = 431) EOSINOPHILS RELATIVE PERCENT 1 % (BEAKER) (test code = 432) BASOPHILS RELATIVE PERCENT 1 % (BEAKER) (test code = 437) NEUTROPHILS ABSOLUTE COUNT 2.98 K/ L 1.78-5.38 (BEAKER) (test code = 670) LYMPHOCYTES ABSOLUTE COUNT 2.63 K/ L 1.32-3.57 (BEAKER) (test code = 414) MONOCYTES ABSOLUTE COUNT (BEAKER) 0.55 K/ L 0.30-0.82 (test code = 415) EOSINOPHILS ABSOLUTE COUNT 0.04 K/ L 0.04-0.54 (BEAKER) (test code = 416) BASOPHILS ABSOLUTE COUNT (BEAKER) 0.04 K/ L 0.01-0.08 (test code = 417) IMMATURE GRANULOCYTES-RELATIVE 0 % 0-1 PERCENT (BEAKER) (test code = 2801) SARS-CoV2/RT-PCR (Asymptomatic ONLY)2020-09-28 17:19:00 Test Item Value Reference Range Interpretation Comments SARS-COV2/RT-PCR Negative Not Detected, (test code = Negative, See 27701-4) external report for linked test SARS-COV-2 [facility] (test code = 18908-8) KASEY (test code = Negative result for this KASEY) test determines that SARS-CoV-2 RNA was not present in the specimen above the Limit of Detection (LOD). However, Negative results do not preclude SARS-CoV-2 infection and should not be used as the sole basis for treatment or patient management decisions. Negative results must be combined with clinical observations, patient history, and epidemiological information. A false negative result may occur if a specimen is improperly collected, transported or handled. A false negative result should be considered if patient's recent exposures or clinical presentation indicate that COVID-19 (SARS-CoV-2) is likely and diagnostic tests for other causes of illness are negative. Re-testing should be considered in cases of suspected false negatives. The limit of detection for this assay is 800 copies/mL. This SARS CoV-2 test is a real-time RT-PCR test intended for the qualitative detection of nucleic acid from SARS-CoV-2 in a nasopharyngeal swab specimen collected from individuals suspected of COVID-19 by their healthcare provider. This test has not been Food and Drug Administration (FDA) cleared or approved. This is a modified version of an approved Emergency Use Authorization (EUA) and is in the process of review by the FDA. Once authorized by the FDA, the issued EUA will be effective until the declaration that circumstances exist justifying the authorization of the emergency use of in vitro diagnostic tests for detection and/or diagnosis of COVID-19 is terminated under Section 564(b)(2) of the Act or the EUA is revoked under Section 564(g) of the Act. Fact Sheet for Healthcare Providers:https://www.Azuro idel.[employer]/sites/default/f maeve/product/documents/F act_Sheet_HC_Providers_L sjq_APPD-YaA-6.pdf Fact Sheet for Healthcare Patients:https://www.Goal [employer] del.[employer]/sites/default/fi les/product/documents/Fa ct_Sheet_Patients_Lyra_S ARS-CoV-2.pdf Performing Laboratory:[facility] [place] [address] [facility] REF [facility])2020-09-28 17:19:00 Test Item Value Reference Range Interpretation Comments SARS-COV2/RT-PCR (test Negative Not Detected, Negative, code = 9575410) See external report for linked test SARS-COV-2 PERFORMING LAB [facility] (test code = 5225318) Negative result for this test determines that SARS-CoV-2 RNA was not present in the specimen above the Limit of Detection (LOD). However, Negative results do not preclude SARS-CoV-2 infection and should not be used as the sole basis for treatment or patient management decisions. Negative results mustbe combined with clinical observations, patient history, and epidemiological information. A false negative result may occur if a specimen is improperly collected, transported or handled. A false negative result should be considered if patient's recent exposures or clinical presentation indicate that COVID-19 (SARS-CoV-2) is likely and diagnostic tests for other causes of illness are negative. Re-testing should be considered in cases of suspected false negatives.The limit of detection for this assay is 800 copies/mL.This SARS CoV-2 test is a real-time RT-PCR test intended for the qualitative detection of nucleic acid from SARS-CoV-2 in a nasopharyngeal swab specimen collected from individuals susp ected of COVID-19 by their healthcare provider.This test has not been Food and Drug Administration (FDA) cleared or approved. This is a modified version of an approved Emergency Use Authorization (EUA) and is in the process of review by the FDA. Once authorized by the FDA, the issued EUA will be effective until the declaration that circumstances exist justifying the authorization of the emergency use of in vitro diagnostic tests for detection and/or diagnosis of COVID-19 is terminated under Section 564(b)(2) of the Act or the EUA is revoked under Section 564(g) of the Act.Fact Sheet for Healthcare Providers:https://www.Azuroidel.com/sites/default/files/product/documents/Fact_Shee b_UB_Npzahibxa_Rfhy_QCSX-OaR-9.pdfFact Sheet for Healthcare Patients:https://www.K[employer].com/sites/default/files/product/ documents/Oxnu_Rossi_Zzvpziqg_Xwui_OERH-HrX-6.pdfPerforming Laboratory:[facility], [place] [address]Jygyi drug screen, [id number] 16:44:00 Test Item Value Reference Range Interpretation Comments Barbiturate Screen Negative Negative (test code = 85209-3) Benzodiazepine Screen Positive Negative A (test code = 46553-8) Cocaine (Metab.) Negative Negative Screen (test code = 3397-7) Methadone Screen (test Negative Negative code = 55453-6) Opiate Screen (test Negative Negative code = 31820-1) Cannabinoid Screen Positive Negative A (test code = 28275-8) Amph/Methamph Screen Negative Negative (test code = 79183-7) Phencyclidine Screen Negative Negative (test code = 99713-8) pH, UA (test code = 6.0 5.0-8.0 5803-2) KASEY (test code = KASEY) DRUG CUTOFF CONC.Cocaine 300 ng/mL Cannabinoid 50 ng/mLBenzodiazepine 200 ng/mLBarbiturate 200 ng/mLPhencyclidine 25 ng/mLOpiate 300 ng/mLMethadone 300 ng/mLAmphetamine/ 1000 ng/mL Methamphetamine This assay provides an unconfirmed qualitative test result for the clinical management of patients in emergency situations. Chain of custody not maintained. Some ycro-rma-odjdupi medications, as well as adulterants, may cause inaccurate results. Clinical correlation should be applied. A more comprehensive drug screen or confirmation of a detected drug may be performed upon request.[employer] Operator ID - CAROLINA F Lab Interpretation Abnormal (test code = 13779-0) [facility] CenterRAPID [facility] SCREEN, [id number] 16:44:00 Test Item Value Reference Range Interpretation Comments BARBITURATE URINE (BEAKER) (test Negative Negative code = 725) BENZODIAZEPINE SCREEN URINE (BEAKER) Positive Negative A (test code = 726) COCAINE (METAB.) SCREEN (BEAKER) Negative Negative (test code = 1164) METHADONE SCREEN (BEAKER) (test code Negative Negative = 1436) OPIATE SCREEN URINE (BEAKER) (test Negative Negative code = 734) CANNABINOID SCREEN URINE (BEAKER) Positive Negative A (test code = 727) AMPH/METHAMPH SCREEN (BEAKER) (test Negative Negative code = 1438) PHENCYCLIDINE SCREEN URINE (BEAKER) Negative Negative (test code = 608) PH UA (BEAKER) (test code = 467) 6.0 5.0-8.0 DRUG CUTOFF CONC.Cocaine 300 ng/mL Cannabinoid 50 ng/mLBenzodiazepine 200 ng/mLBarbiturate 200 ng/mLPhencyclidine 25 ng/mLOpiate 300 ng/mLMethadone 300 ng/mLAmphetamine/ 1000 ng/mL MethamphetamineThis assay provides an unconfirmed qualitative test result for the clinical management of patients in emergency situations. Chain of custody not maintained. Some rpws-mim-gzyvtha medications, as well as adulterants, may cause inaccurate results. Clinical correlation should be applied. A more comprehensivedrug screen or confirmation of a detected drug may be performed upon request.[employer] Operator ID - MAYRA WHITTD, HAND, 2 VIEWS, [id number] 14:06:00Reason for exam:->swelling and pain [facility] : 1990 Sex: MFINAL REPORT RAD, HAND, 2 VIEWS, LEFT, RAD, WRIST, 2 VIEWS, LEFT CLINICAL INDICATION: swelling and pain TECHNIQUE: Two views of the left hand, two views of the left wrist COMPARISON: None FINDINGS: No fracture or dislocation. Joint spaces are normal. No focal soft tissue abnormality. IMPRESSION:No evidence of acute osseous injury. Signed: Kendrick Camejo Verified Date/Time: 09/28/2020 14:06:34 RAD, WRIST, 2 VIEWS, [id number] 14:06:00Reason for exam:->Swelling and pain [facility] : 1990 Sex: MFINAL REPORT RAD, HAND, 2 VIEWS, LEFT, RAD, WRIST, 2 VIEWS, LEFT CLINICAL INDICATION: swelling and pain TECHNIQUE: Two views of the left hand, two views of the left wrist COMPARISON: None FINDINGS: No fracture or dislocation. Joint spaces are normal. No focal soft tissue abnormality. IMPRESSION:No evidence of acute osseous injury. Signed: Kendrick Camejo Verified Date/Time: 09/28/2020 14:06:34 XR wrist 2 views [id number] 14:06:00 Interface, External Ris In - 09/28/2020 2:08 PM CSTFINAL REPORT RAD, HAND, 2VIEWS, LEFT, RAD, WRIST, 2 VIEWS, LEFT CLINICAL INDICATION: swelling and pain TECHNIQUE: Two views of the left hand, two views of the left wrist COMPARISON: None FINDINGS: No fracture or dislocation. Joint spaces are normal. No focal soft tissue abnormality. IMPRESSION:No evidence of acute osseous injury. Signed: Kendrick Camejo Verified Date/Time: 09/28/2020 14:06:34 Electronically signedby: KENDRICK CAMJEO MD on 09/28/2020 02:06 [facility]XR [facility] views [id number] 14:06:00 Interface, External Ris In - 09/28/2020 2:08 PM CSTFINAL REPORT RAD, HAND, 2VIEWS, LEFT, RAD, WRIST, 2 VIEWS, LEFT CLINICAL INDICATION: swelling and pain TECHNIQUE: Two views of the left hand, two views of the left wrist COMPARISON: None FINDINGS: No fracture or dislocation. Joint spaces are normal. No focal soft tissue abnormality. IMPRESSION:No evidence of acute osseous injury. Signed: Kendrick Camejo Verified Date/Time: 09/28/2020 14:06:34 Electronically signedby: KENDRICK CAMEJO MD on 09/28/2020 02:06 [facility]EastHepatic function [id number] 05:25:00 Test Item Value Reference Range Interpretation Comments Protein, Total (test 6.9 See_Comment [Autom ated code = 2885-2) message] The system which generated this result transmit christine reference range : 6.0 - 8.3 gm/dL . The reference range was not u sed to interpret th is result as normal/abnormal . Albumin (test code = 4.0 g/dL 3.5-5 47199-9) Total Bilirubin (test 0.4 mg/dL 0.2-1.2 code = 1975-2) Bilirubin, Direct 0.2 mg/dL 0.1-0.5 (test code = 1968-7) Alkaline Phosphatase 120 U/L 40-150 (test code = 6768-6) AST (test code = 21 U/L 5-34 1920-8) ALT (test code = 33 U/L 6-55 1742-6) KASEY (test code = KASEY) [employer] Operator ID - ADMIN Lab Interpretation Normal (test code = 39330-8) [facility] CenterBASIC METABOLIC [id number] 05:25:00 Test Item Value Reference Range Interpretation Comments SODIUM (BEAKER) 134 meq/L 136-145 L (test code = 381) POTASSIUM (BEAKER) 3.9 meq/L 3.5-5.1 (test code = 379) CHLORIDE (BEAKER) 104 meq/L 98-107 (test code = 382) CO2 (BEAKER) (test 20 meq/L 22-29 L code = 355) BLOOD UREA NITROGEN 9 mg/dL 7-21 (BEAKER) (test code = 354) CREATININE (BEAKER) 0.81 mg/dL 0.57-1.25 (test code = 358) GLUCOSE RANDOM 93 mg/dL 70-105 (BEAKER) (test code = 652) CALCIUM (BEAKER) 8.8 mg/dL 8.4-10.2 (test code = 697) EGFR (BEAKER) (test 110 mL/min/1.73 ESTIM ATED GFR IS code = 1092) sq m NOT ACCURATE CREATININE CLEARANCE IN PREDICTING GLOMERULAR FILTRATION RATE . ESTIMATED GFR I S NOT APPLICABLE FOR DIALYSIS PATIEN TS. [employer] Operator ID - ADMINHEPATIC FUNCTION [id number] 05:25:00 Test Item Value Reference Range Interpretation Comments TOTAL PROTEIN (BEAKER) (test code = 6.9 gm/dL 6.0-8.3 770) ALBUMIN (BEAKER) (test code = 1145) 4.0 g/dL 3.5-5.0 BILIRUBIN TOTAL (BEAKER) (test code 0.4 mg/dL 0.2-1.2 = 377) BILIRUBIN DIRECT (BEAKER) (test 0.2 mg/dL 0.1-0.5 code = 706) ALKALINE PHOSPHATASE (BEAKER) (test 120 U/L 40-150 code = 346) AST (SGOT) (BEAKER) (test code = 21 U/L 5-34 353) ALT (SGPT) (BEAKER) (test code = 33 U/L 6-55 347) [employer] Operator ID - ADMINCBC W/PLT COUNT & AUTO [id number] 04:39:00 Test Item Value Reference Range Interpretation Comments WHITE BLOOD CELL COUNT (BEAKER) 7.6 K/ L 3.5-10.5 (test code = 775) RED BLOOD CELL COUNT (BEAKER) 4.70 M/ L 4.63-6.08 (test code = 761) HEMOGLOBIN (BEAKER) (test code = 13.9 GM/DL 13.7-17.5 410) HEMATOCRIT (BEAKER) (test code = 41.9 % 40.1-51.0 411) MEAN CORPUSCULAR VOLUME (BEAKER) 89.1 fL 79.0-92.2 (test code = 753) MEAN CORPUSCULAR HEMOGLOBIN 29.6 pg 25.7-32.2 (BEAKER) (test code = 751) MEAN CORPUSCULAR HEMOGLOBIN CONC 33.2 GM/DL 32.3-36.5 (BEAKER) (test code = 752) RED CELL DISTRIBUTION WIDTH 12.1 % 11.6-14.4 (BEAKER) (test code = 412) PLATELET COUNT (BEAKER) (test 199 K/CU MM 150-450 code = 756) MEAN PLATELET VOLUME (BEAKER) 10.4 fL 9.4-12.4 (test code = 754) NUCLEATED RED BLOOD CELLS 0 /100 WBC 0-0 (BEAKER) (test code = 413) NEUTROPHILS RELATIVE PERCENT 49 % (BEAKER) (test code = 429) LYMPHOCYTES RELATIVE PERCENT 41 % (BEAKER) (test code = 430) MONOCYTES RELATIVE PERCENT 9 % (BEAKER) (test code = 431) EOSINOPHILS RELATIVE PERCENT 1 % (BEAKER) (test code = 432) BASOPHILS RELATIVE PERCENT 1 % (BEAKER) (test code = 437) NEUTROPHILS ABSOLUTE COUNT 3.72 K/ L 1.78-5.38 (BEAKER) (test code = 670) LYMPHOCYTES ABSOLUTE COUNT 3.07 K/ L 1.32-3.57 (BEAKER) (test code = 414) MONOCYTES ABSOLUTE COUNT (BEAKER) 0.69 K/ L 0.30-0.82 (test code = 415) EOSINOPHILS ABSOLUTE COUNT 0.04 K/ L 0.04-0.54 (BEAKER) (test code = 416) BASOPHILS ABSOLUTE COUNT (BEAKER) 0.04 K/ L 0.01-0.08 (test code = 417) IMMATURE GRANULOCYTES-RELATIVE 0 % 0-1 PERCENT (BEAKER) (test code = 2801) BLOOD [id number] 18:00:00 Test Item Value Reference Range Interpretation Comments CULTURE (BEAKER) (test No growth in 5 days code = 1095) BLOOD [id number] 18:00:00 Test Item Value Reference Range Interpretation Comments CULTURE (BEAKER) (test No growth in 5 days code = 1095) SPUTUM CULTURE + GRAM [id number] 14:21:00 Test Item Value Reference Range Interpretation Comments CULTURE (BEAKER) 4+ Normal respiratory (test code = 1095) beatrice present GRAM STAIN RESULT 1+ gram positive rods (BEAKER) (test code = 1123) GRAM STAIN RESULT 1+ gram negative cocci (BEAKER) (test code = 04094) GRAM STAIN RESULT 2+ gram positive cocci (BEAKER) (test code = in chains 04167) GRAM STAIN RESULT 1+ gram positive cocci (BEAKER) (test code = in clusters 172362) RAD, CHEST, 1 VIEW, NON [id number] 07:27:00Reason for exam:->post intubationShould this be performed [...] or blastic abnormalities are appreciated. Signed: Sandra Shultzeport Verified Date/Time: 09/13/2018 07:27:51 Reading Location: [facility] Radiology Reading Room PHOSPHORUS 2018-09-13 04:44:00 Test Item Value Reference Range Interpretation Comments PHOSPHORUS (BEAKER) (test code = 2.9 mg/dL 2.3-4.7 604) Check Serum Phosphorus level 4 hours after IV phosphorus replacement or 8 hours after PO replacementcompleted.[id number] 04:44:00 Test Item Value Reference Range Interpretation Comments MAGNESIUM (BEAKER) (test code = 2.2 mg/dL 1.6-2.6 627) Check Serum Phosphorus level 4 hours after IV phosphorus replacement or 8 hours after PO replacementcompleted.BASIC METABOLIC [id number] 04:44:00 Test Item Value Reference Range Interpretation [...] after PO replacementcompleted.CBC W/PLT COUNT & AUTO [id number] 04:19:00 Test Item Value Reference Range Interpretation [...] 0-1 PERCENT (BEAKER) (test code = 2801) [id number] 18:41:00 Test Item Value Reference Range Interpretation Comments POTASSIUM (BEAKER) (test code = 3.9 meq/L 3.5-5.1 379) Check Serum Potassium level 2 hours after oral potassium replacement completed or 30 min after intravenous potassium replacement.[id number] 18:41:00 Test Item Value Reference Range Interpretation Comments MAGNESIUM (BEAKER) (test code = 2.9 mg/dL 1.6-2.6 H 627) Check Serum Potassium level 2 hours after oral potassium replacement completed or 30 min after intravenous potassium replacement.EEG MONITORING WITH VIDEO RECORDING EACH 24 [id number] 14:34:00billing for 09/12 AMDATE OF REPORT: 09/12/2018 ACC: [id number] EE Start time: 09/11 at 0920 AM Stop time: 09/12 at 11:11 AM ICD-10: R56.9 CPT Code: 79798 HISTORY: 28 year old male p/w increased [...] Fellow Davis Cintron MD, PhD Attending Neurophysiologist [facility] [id number] 12:15:00 Test Item Value Reference Range Interpretation Comments MAGNESIUM (BEAKER) (test code = 1.9 mg/dL 1.6-2.6 627) Check Serum Phosphorus level 4 hours after IV phosphorus replacement or 8 hours after PO replacementcompleted.Check Serum Potassium level 2 hours after oral potassium replacement completed or 30 min after intravenous potassium replacement.[id number] 12:15:00 Test Item Value Reference Range Interpretation Comments PHOSPHORUS (BEAKER) (test code = 2.0 mg/dL 2.3-4.7 L 604) Check Serum Phosphorus level 4 hours after IV phosphorus replacement or 8 hours after PO replacementcompleted.Check Serum Potassium level 2 hours after oral potassium replacement completed or 30 min after intravenous potassium replacement.[id number] 12:14:00 Test Item Value Reference Range Interpretation Comments POTASSIUM (BEAKER) (test code = 3.6 meq/L 3.5-5.1 379) Check Serum Phosphorus level 4 hours after IV phosphorus replacement or 8 hours after PO replacementcompleted.Check Serum Potassium level 2 hours after oral potassium replacement completed or 30 min after intravenous potassium replacement.CALCIUM, [id number] 11:49:00 Test Item Value Reference Range Interpretation Comments CALCIUM IONIZED (BEAKER) (test 1.09 mmol/L 1.12-1.27 L code = 698) PH, BLOOD (BEAKER) (test code = 7.46 1810) Check serum Ionized Calcium level after 4 hours after IV Calcium replacement. URINE [id number] 08:18:00 Test Item Value Reference Range Interpretation Comments CULTURE (BEAKER) (test code = 1095) No growth [id number] 03:59:00 Test Item Value Reference Range Interpretation Comments PHOSPHORUS (BEAKER) (test code = 2.5 mg/dL 2.3-4.7 604) Check Serum Phosphorus level 4 hours after IV phosphorus replacement or 8 hours after PO replacementcompleted.[id number] 03:59:00 Test Item Value Reference Range Interpretation Comments MAGNESIUM (BEAKER) (test code = 2.1 mg/dL 1.6-2.6 627) Check Serum Phosphorus level 4 hours after IV phosphorus replacement or 8 hours after PO replacementcompleted.BASIC METABOLIC [id number] 03:59:00 Test Item Value Reference Range Interpretation [...] after PO replacementcompleted.CBC W/PLT COUNT & AUTO [id number] 03:41:00 Test Item Value Reference Range Interpretation [...] PERCENT (BEAKER) (test code = 2801) POCT-GLUCOSE [id number] 23:55:00 Test Item Value Reference Range Interpretation Comments POC-GLUCOSE METER 94 mg/dL 70-110 TESTED AT [facility] [address] (BEAKER) (test code = [place] [address] 1538) [id number] 18:08:00 Test Item Value Reference Range Interpretation Comments POTASSIUM (MAXIMINO) (test code = 3.4 meq/L 3.5-5.1 L 379) Check Serum Potassium level 2 hours after oral potassium replacement completed or 30 min after intravenous potassium replacement.EEG MONITORING WITH VIDEO RECORDING EACH 24 [id number] 09:23:00DATE OF REPORT: 09/11/2018ACC: [id number]: art time: 09/10 at 15:05Stop time: 09/11 at 09:20 AMICD- 10: R56.9CPT Code: 37686 HISTORY: 28 yo male with h/o seizures [...] MDNeurophysiology Fellow Joao Blum M.D., FACNSProfessor of NeurologyRancho Los Amigos National Rehabilitation CenterDirector, [facility] Epilepsy [facility] [...] MDReport Verified Date/Time: 09/11/2018 07:32:46 Reading Location: [facility] C0[facility] Neuro Reading Room POCT-GLUCOSE [id number] 06:30:00 Test Item Value Reference Range Interpretation Comments POC-GLUCOSE METER 111 mg/dL 70-110 H TESTED AT [facility] [address] ([facility]) (test code = [facility] 1538) [address] BASIC METABOLIC [id number] 06:06:00 Test Item Value Reference Range Interpretation [...] PATIEN TS. CBC W/PLT COUNT & AUTO [id number] 03:47:00 Test Item Value Reference Range Interpretation [...] (BEAKER) (test code = 2801) BLOOD GAS, [id number] 03:32:00 Test Item Value Reference Range Interpretation [...] (test code = 1819) 40.0 % POCT-GLUCOSE [id number] 01:01:00 Test Item Value Reference Range Interpretation Comments POC-GLUCOSE METER 91 mg/dL 70-110 TESTED AT [facility] [address] (BEAKER) (test code = [address] [facility] [address] 1538) TROPONIN [id number] 17:18:00 Test Item Value Reference Range Interpretation [...] neurological disease, and persistent tachyarrhythmia.EEG AWAKE AND [id number] 15:50:00 Reason for exam:->Status epilepticus, c EEG for evaluation of subclinical seizures Should this beperformed at the bedside?->YesDATE OF REPORT: 09/10/2018ACC: [id number]: [id number] time: 14:47Stop time: 15:04ICD-10: R56.9CPTCode: 77664 HISTORY: 28 yo male with h/o seizures [...] MDNeurophysiology Fellow Joao Blum M.D., FACNSProfessor of NeurologyRancho Los Amigos National Rehabilitation CenterDirector, [facility] Epilepsy [place] BLOOD GAS, [id number] 12:32:00 Test Item Value Reference Range Interpretation [...] 37.1 C (test code = 1818) FIO2 (MAXIMINO) (test code = 1819) 40.0 % RAD, ABDOMEN/KUB, 1 VIEW [id number] 12:12:00Reason for exam:->corpakShould this be performed at the bedside?->YesFINAL REPORT AP abdomen, three images HISTORY: Feeding tube COMPARISON: 11/01/2015 IMPRESSION:Feeding tube present with tip in abdomen. Bowel gas pattern appears grossly nonobstructive. Signed: Edgardo Guzman Verified Date/Time: 09/10/2018 12:12:56 Reading Location: [address] Ortho Consult Reading Room , CHEST, 1 VIEW, NON [id number] 10:40:00Reason for exam:->post intubationShould this be performed at the bedside?->YesFINAL REPORT AP chest HISTORY: Intubation COMPARISON: None IMPRESSION:Endotrac heal tube in satisfactory position. Right IJ central venous catheter at mid SVC. Heart size normal. Mild perihilar atelectasis. Lungs otherwise clear. No pneumothorax. Signed: Edgardo Guzman Verified Date/Time: 09/10/2018 10:40:47 Reading Location: [address] Ortho Consult Reading Room El ectronically signed by: EDGARDO GUZMAN M.D. on 09/10/2018 10:40 AM TROPONIN [id number] 09:21:00 Test Item Value Reference Range Interpretation [...] failure, acidosis, acute neurological disease, and persistent tachyarrhythmia.[id number] 09:19:00 Test Item Value Reference Range Interpretation Comments CARBAMAZEPINE LEVEL (BEAKER) (test 2.2 ug/mL 4.0-12.0 L code = 696) PHENYTOIN LEVEL, [id number] 09:18:00 Test Item Value Reference Range Interpretation Comments PHENYTOIN (DILANTIN) (BEAKER) 10.8 ug/mL 10.0-20.0 (test code = 605) [id number] 09:03:00 Test Item Value Reference Range Interpretation Comments PARTIAL THROMBOPLASTIN TIME 27.5 seconds 22.5-36.0 (BEAKER) (test code = 760) PROTHROMBIN [id number] 09:02:00 Test Item Value Reference Range Interpretation Comments PROTIME (BEAKER) (test code = 14.6 seconds 11.7-14.7 759) INR (BEAKER) (test code = 370) 1.1 <=5.9 RECOMMENDED COUMADIN/WARFARIN INR THERAPY RANGESSTANDARD DOSE: 2.0 - 3.0 Includes: PROPHYLAXIS forvenous thrombosis, systemic embolization; TREATMENT for venous thrombosis and/or pulmonary embolus.HIGH RISK: Target INR is 2.5-3.5 for patients with mechanical heart valves.PLATELET [id number] 08:53:00 Test Item Value Reference Range Interpretation Comments PLATELET COUNT (BEAKER) (test 184 K/CU MM 150-450 code = 756) BASIC METABOLIC [id number] 07:07:00 Test Item Value Reference Range Interpretation [...] 29-200 H code = 380) BASIC METABOLIC [id number] 05:19:00 Test Item Value Reference Range Interpretation [...] U/L 29-200 H code = 380) POCT-GLUCOSE [id number] 17:02:00 Test Item Value Reference Range Interpretation Comments POC-GLUCOSE METER 93 mg/dL 70-110 TESTED AT [facility] 6720 (BEAKER) (test code = [place] [address] 1538) [id number] 04:54:00 Test Item Value Reference Range Interpretation Comments MAGNESIUM (BEAKER) (test code = 2.1 mg/dL 1.6-2.6 627) BASIC METABOLIC [id number] 04:54:00 Test Item Value Reference Range Interpretation [...] H code = 380) EEG AWAKE AND [id number] 16:50:00Reason for exam:->seizure disorder Neurophysiology Electroencephalogram Report DATE OF REPORT: 08/10/18Date(s) of Study: 08/10/2018ACC: [id number]: [id number] time: 1517 hrsStop time: 1537 hrsICD-10: R56.9 Unspecified ConvulsionsCPT Code: 21149 EEG: awake and drowsy <40 min HISTORY: [...] Fellow Shamir Najera MD, MSClinical Neurophysiology/Epilepsy Attending [facility] Neurophysiology Service URINALYSIS W/ [id number] 05:20:00 Test Item Value Reference Range Interpretation [...] 0 /HPF SOURCE(BEAKER) (test code = 2795) [id number] 03:17:00 Test Item Value Reference Range Interpretation Comments CARBAMAZEPINE LEVEL (BEAKER) (test < ug/mL 4.0-12.0 L code = 696) [id number] 02:33:00 Test Item Value Reference Range Interpretation Comments PHOSPHORUS (BEAKER) (test code = 2.8 mg/dL 2.3-4.7 604) [id number] 02:33:00 Test Item Value Reference Range Interpretation Comments MAGNESIUM (BEAKER) (test code = 2.2 mg/dL 1.6-2.6 627) BASIC METABOLIC [id number] 02:33:00 Test Item Value Reference Range Interpretation [...] APPLICABLE FOR DIALYSIS PATIEN TS. HEPATIC FUNCTION [id number] 02:33:00 Test Item Value Reference Range Interpretation [...] U/L 29-200 H code = 380) C-REACTIVE [id number] 02:33:00 Test Item Value Reference Range Interpretation Comments C-REACTIVE PROTEIN (BEAKER) (test 0.45 mg/dL 0.00-0.50 code = 676) LACTIC ACID, VENOUS, WHOLE [id number] 02:26:00 Test Item Value Reference Range Interpretation Comments LACTATE BLOOD VENOUS 1.0 mmol/L 0.5-2.2 Specime n slightly (2) (BEAKER) (test hemolyzed code = 2872) Effective 03/18/2016: Units/Reference Range ChangeNew: 0.5-2.2 mmol/L Previous: 5-20 mg/dLCBC W/PLT COUNT & AUTO [id number] 02:05:00 Test Item Value Reference Range Interpretation [...] 0-1 PERCENT (BEAKER) (test code = 2801) POCT-CALCIUM [id number] 01:50:00 Test Item Value Reference Range Interpretation Comments POC-CALCIUM IONIZED 1.15 mmol/L 1.12-1.27 TESTED A T [place] [address] ([facility]) (test code = [facility] 1536) [address] [id number] 01:50:00 Test Item Value Reference Range Interpretation Comments POC-HEMATOCRIT 35 % 40-50 L TESTED AT [place] [address] ([facility]) (test code = [facility] [address] 3018) [id number] 01:50:00 Test Item Value Reference Range Interpretation Comments POC-HEMOGLOBIN 11.9 g/dL 13.0-16.8 L TESTED AT [place] [address] ([facility]) (test code [facility] = 1856) [address]ASMBBY AT [place] [address] [facility] [place] [address] POCT-BLOOD GASES, [id number] 01:50:00 Test Item Value Reference Range Interpretation Comments TEMP, CELSIUS-POC 37.0 ([facility]) (test code = 1834) FIO2-POC (BEAKER) TESTED AT [place] [address] (test code = 1835) [facility] [address] PH, ARTERIAL-POC 7.396 7.350-7.450 (BEAKER) (test code [...] L ARTERIAL-POC (BEAKER) (test code = 1841) [id number] 01:50:00 Test Item Value Reference Range Interpretation Comments POC-SODIUM (BEAKER) 140 meq/L 135-148 TESTED [place] [address] (test code = 1542) [facility] [address] [id number] 01:50:00 Test Item Value Reference Range Interpretation Comments POC-POTASSIUM 3.4 meq/L 3.6-5.5 L TESTED AT [place] [id number] (BEAKER) (test code [facility] [address] = 1540) [id number] 01:50:00 Test Item Value Reference Range Interpretation Comments POC-GLUCOSE (BEAKER) 105 mg/dL 70-110 TESTED AT [place] [address] (test code = 1855) [facility] [address] POCT-LACTIC ACID, [id number] 01:49:00 Test Item Value Reference Range Interpretation Comments POC-LACTIC ACID, 0.9 mmol/L 0.4-1.3 TESTED AT [place] [address] ARTERIAL (BEAKER) [facility] [place] (test code = 2804) [address]
[2021-06-06] MEDS ORDERED: LORazepam 2 MG/ML VIAL ONE ×7 (07:51→09:39)
[2021-06-06] MEDS ORDERED: NA CHLORIDE 0.9% 100 ML ONE ×2 (07:55→08:23)
[2021-06-06] MEDS ORDERED: LEVETIRACETAM 500 MG/5 ML VIAL IV ONE (07:55)
[2021-06-06] MEDS ORDERED: lamoTRIgine 100 MG TAB PO ONE (08:00)
[2021-06-06] MEDS ORDERED: NA CHLORIDE 0.9% 1,000 ML ONE ×3 (08:08→11:33)
[2021-06-06 08:11] LABS: Absolute Lymphocytes (CBC) 2.6 K/uL (0.7-4.9); Basophils % 0.7 % (0-1.3); Lymphocytes % 36.7 % (15.3-44.8); MPV 9.1 fL (7.6-11.3); RBC Red Blood Cell Count 4.56 M/uL (4.33-5.43)
[2021-06-06 08:12] LABS: Protime INR 1.06
[2021-06-06 08:49] LABS: ALT/SGPT 31 U/L (12-78); AST/SGOT 21 U/L (15-37); Albumin 3.8 g/dL (3.4-5.0); Alkaline Phosphatase 98 U/L (45-117); BUN Blood Urea Nitrogen 7 mg/dL (7-18); Bicarbonate 25 mmol/L (21-32); Bilirubin Direct < 0.1 mg/dL (0-0.2); Bilirubin Total 0.4 mg/dL (0.2-1.0); Glucose Level 96 mg/dL (74-106); Potassium 3.3 mmol/L (3.5-5.1); Protein, Total 7.4 g/dL (6.4-8.2); Sodium Level 140 mmol/L (136-145)
--- NOTE | 2021-06-06 08:57 | ER ---
Nurse's Notes [facility] Name: Alfie Zavala Age: 31 yrs Sex: Male : 1990 Arrival Date: 06/06/2021 Time: 07:20 Bed 3 Private MD: Diagnosis: Epilepsy, unspecified, intractable, with status epilepticus Presentation: 06/06 07:26 Chief complaint: Patient states: Pt complaining of having seizure for the first time in ea three weeks since he stopped taking his seizure medication. Coronavirus screen: At this time, the client does not indicate any symptoms associated with coronavirus-19. Ebola Screen: No symptoms or risks identified at this time. Initial Sepsis Screen: Does the patient meet any 2 criteria? No. Patient's initial sepsis screen is negative. Does the patient have a suspected source of infection? No. Patient's initial sepsis screen is negative. Risk Assessment: Do you want to hurt yourself or someone else? Patient reports no desire to harm self or others. Onset of symptoms was June 06, 2021. 07:26 Method Of Arrival: EMS: [facility] 07:26 Acuity: KEN 3 ea 07:41 Acuity: KEN 2 iw Historical: - Allergies: 07:30 No Known Allergies; ea - Home Meds: 07:30 Ambien 12.5 mg Oral tab 1 tab nightly [Active]; clonazepam 0.5 mg Oral tab 3 times per ea day [Active]; diazepam 10 mg Oral tab 1 tab daily prn for Acute Repetitive Seizures, Anxiety [Active]; fluoxetine 40 mg Oral cap 1 cap once daily [Active]; gabapentin 300 mg Oral cap 1 cap TID prn [Active]; lamotrigine 200 mg Oral tab 1 tab 2 times per day [Active]; Phenytoin 100 mg Oral every 8 hours [Active]; sumatriptan succinate 50 mg Oral tab [Active]; topiramate 50 mg Oral CSpX 1 cap twice a day [Active]; venlafaxine 75 mg Oral tab 1 tab 2 times per day [Active]; zolpidem 12.5 mg Oral TbMP 1 tab qhs prn [Active]; - PMHx: 07:30 status epilepticus; Seizures; Headaches; Depression; ea - Immunization history:: Adult Immunizations unknown. - Social history:: Smoking status: Patient denies any tobacco usage or history of. Screenin:30 Abuse screen: Denies threats or abuse. Nutritional screening: No deficits noted. ea Tuberculosis screening: No symptoms or risk factors identified. Fall Risk None identified. Assessment: 07:30 General: Appears in no apparent distress. comfortable, well developed, Behavior is sv cooperative. Pain: Denies pain. Neuro: Level of Consciousness is awake, alert, obeys commands, Oriented to person, place, time, situation. Respiratory: Respiratory effort is even, unlabored. 07:33 Neuro: Seizure activity noted at this time. Type of seizure: grand mal seizure. Seizure sv lasted approximately 3 minutes. 07:38 Neuro: Seizure activity noted at this time. Type of seizure: grand mal seizure. Seizure sv lasted approximately 2 minutes. 07:51 Neuro: Seizure activity noted at this time. Type of seizure: grand mal seizure. Seizure sv lasted approximately 3 minutes. 08:15 Neuro: Seizure activity noted at this time. Type of seizure: grand mal seizure. Seizure sv lasted approximately 3 minutes. 08:46 Reassessment: Dr Gómez at the bedside speaking with the pt. sv 09:13 Neuro: Seizure activity noted at this time. Type of seizure: grand mal seizure. sv 09:16 Neuro: Seizure activity noted at this time. Type of seizure: grand mal seizure. Seizure sv lasted approximately 5 minutes. 09:21 Neuro: Seizure activity noted at this time. Type of seizure: grand mal seizure. Seizure sv lasted approximately 1 minutes. 10:02 Reassessment: Patient appears in no apparent distress at this time. General: Behavior sv is drowsy. Neuro: Level of Consciousness is lethargic. Respiratory: Airway is patent Respiratory effort is even, unlabored, Respiratory pattern is symmetrical, tachypnea. 11:14 Reassessment: Patient appears in no apparent distress at this time. No changes from sv previously documented assessment. Vital Signs: 07:12 BP 127 / 90; Pulse 120; Resp 30; Pulse Ox 97% ; sv 07:26 BP 127 / 90; Pulse 110; Resp 20; Temp 98.2; Pulse Ox 98% ; ea 07:36 BP 136 / 68; Pulse 99; Resp 31; Pulse Ox 100% on 15% Non-rebreather mask; sv 07:58 Weight 108.86 kg; sv 08:01 BP 120 / 78; Pulse 111; Resp 20; Pulse Ox 100% on 15% Non-rebreather mask; sv 08:46 BP 124 / 67; Pulse 109; Resp 14; Pulse Ox 96% ; sv 09:00 BP 114 / 68; Pulse 95; Resp 39; Pulse Ox 96% ; sv 10:00 BP 94 / 53; Pulse 90; Resp 44; Pulse Ox 97% ; sv 11:05 BP 87 / 53; Pulse 83; Resp 33; Pulse Ox 97% on 100% Non-rebreather mask; sv 11:15 BP 158 / 99; Pulse 83 MON; Resp 31; Pulse Ox 97% on 100% Non-rebreather mask; sv 11:49 Height 5 ft. 11 in. (180.34 cm); sv 11:49 Body Mass Index 33.47 (108.86 kg, 180.34 cm) sv 11:15 Normal Sinus Rhythm sv ED Course: 07:20 Patient arrived in ED. bb 07:20 Bran Tracy MD is Attending Physician. pkl 07:21 Blue Jaeger PA is PHCP. cp 07:21 Kay Chinchilla MD is Attending Physician. cp 07:30 Triage completed. ea 07:30 Inserted saline lock: 20 gauge in left wrist, using aseptic technique. ea 07:30 Patient has correct armband on for positive identification. Bed in low position. Call ea light in reach. 07:30 Arm band placed on right wrist. Patient placed in an exam room, on a stretcher, on ea pulse oximetry. 07:43 Carol Nelson, ESCOBAR is Primary Nurse. sv 07:44 Dilantin Sent. sv 07:44 Basic Metabolic Panel Sent. sv 07:44 Acetaminophen Sent. sv 08:55 Milton Gómez DO is Hospitalizing Provider. cp 09:11 EKG done, by ED staff, reviewed by Blue CARLISLE. dh3 09:[address] via stretcher. sv 09:28 CT Head Brain wo Cont In Process Unspecified. EDMS 09:55 Awaiting radiology results. Awaiting re-evaluation by ER provider. sv 11:25 No provider procedures requiring assistance completed. Patient admitted, IV remains in sv place. intact. 14:17 initiated a transfer with Jhony Ojeda from the [facility] at the eb request of Dr. Gómez. 14:43 Dr. Dangelo the neuro publisher assistant sonography technologist for [facility] called and connected eb with Dr. Gómez for patient transfer consultation. 14:53 administrative approval given by Jhony Ojeda / patient has been accepted to [facility] 7 [facility] 4 Bed 3/ Dr. Wilson has accepted the patient in transfer/ report to be called to [phone]. 15:[address] Gómez the patient's brother has been notified of the plan of care and transfer.eb 15:17 Chest Single View XRAY Sent. sv 15:50 Urine Drug Screen Sent. dh3 Administered Medications: 07:35 Drug: Ativan (LORazepam) 2 mg Route: IVP; Site: left wrist; sv 09:07 Follow up: Response: No adverse reaction sv 07:40 Drug: NS 0.9% 1000 ml Route: IV; Rate: 1 bolus; Site: left wrist; sv 08:30 Follow up: Response: No adverse reaction; IV Status: Completed infusion; IV Intake: sv 1000ml 07:40 Drug: Keppra (levETIRAcetam) 1000 mg Route: IV; Rate: calculated rate; Site: left wrist;sv 07:55 Follow up: Response: No adverse reaction; IV Status: Completed infusion; IV Intake: sv 100ml 07:40 Drug: Ativan (LORazepam) 2 mg Route: IVP; Site: left wrist; sv 09:07 Follow up: Response: No adverse reaction sv 07:53 Drug: Ativan (LORazepam) 2 mg Route: IVP; Site: left wrist; sv 09:06 Follow up: Response: No adverse reaction sv 08:05 Drug: Phenytoin 20 mg/kg Route: IVPB; Rate: calculated rate; Site: left wrist; sv 08:35 Follow up: Response: No adverse reaction; IV Status: Completed infusion; IV Intake: sv 100ml 08:17 Drug: Ativan (LORazepam) 2 mg Route: IVP; Site: left wrist; sv 09:06 Follow up: Response: No adverse reaction sv 09:09 Not Given (Physician Discretion): Potassium Chloride 10 mEq IV at calculated rate once; cp administer over 1-2 hours 09:14 Drug: Ativan (LORazepam) 2 mg Route: IVP; Site: left wrist; sv 09:23 Follow up: Response: No adverse reaction sv 09:17 Drug: Ativan (LORazepam) 2 mg Route: IVP; Site: left wrist; sv 09:23 Follow up: Response: No adverse reaction sv 09:23 CANCELLED (Duplicate Order): Diazepam 5 mg IVP once sv 09:23 Drug: Valium (diazepam) 5 mg Route: IVP; Site: left wrist; sv 09:54 Follow up: Response: No adverse reaction sv 10:02 Drug: NS 0.9% 1000 ml Route: IV; Rate: 1 bolus; Site: left wrist; sv 10:55 Follow up: Response: No adverse reaction; IV Status: Completed infusion; IV Intake: sv 1000ml 10:10 Drug: Potassium Chloride 10 mEq Route: IV; Rate: calculated rate; Site: left wrist; sv 11:18 Follow up: Response: No adverse reaction; IV Status: Completed infusion; IV Intake: 50mlsv 10:55 Not Given (Physician Discretion): LaMICtal (lamoTRIgine) 100 mg PO once sv 10:56 Not Given (Physician Discretion): Potassium Effervescent Tablet 50 mEq PO once; sv dissolve in 4 ounces of water or juice 11:14 Drug: NS 0.9% 1000 ml Route: IV; Rate: 1 bolus; Site: left wrist; sv 11:25 Follow up: Response: No adverse reaction; IV Status: Infusion continued upon admission; sv IV Intake: 1000ml 11:36 Drug: NS 0.9% 1000 ml Route: IV; Rate: 125 ml/hr; Site: left wrist; sv 11:36 Follow up: Response: No adverse reaction; IV Status: Infusion continued upon admission sv 11:36 Follow up: IV Status: Infusion continued upon admission sv 14:47 CANCELLED (Physician Discretion): Ketamine 30 mg IVP once sv 14:47 CANCELLED (Physician Discretion): Ketamine 0.5 mg/min IVP at 30 mg/hr continuous; 100 sv mg in 100 ml NS Intake: 07:55 IV: 100ml; Total: 100ml. sv 08:30 IV: 1000ml; Total: 1100ml. sv 08:35 IV: 100ml; Total: 1200ml. sv 10:55 IV: 1000ml; Total: 2200ml. sv 11:18 IV: 50ml; Total: 2250ml. sv 11:25 IV: 1000ml; Total: 3250ml. sv Outcome: 08:57 Decision to Hospitalize by Provider. cp 11:25 Admitted to ER Hold. Please see [facility] for further documentation. sv 11:25 Condition: stable 11:25 Instructed on the need for admit. 16:52 Patient left the ED. eb Signatures: Dispatcher [employer] Carol Cook RN RN sv Lam, Pin, MD MD pkl Ballard, Brenda, RN RN bb Williams, Irene, RN RN iw Page, Corey, PA PA cp [facility], [facility] Briana Cevallos RN RN ea Botello, Elizabeth eb Corrections: (The following items were deleted from the chart) 11:50 11:05 BP 87 / 53; Pulse 83bpm; Resp 33bpm; Pulse Ox 97% RA; sv sv 11:50 11:15 Pulse 83bpm; Monitor: Normal Sinus RhythmResp 31bpm; Pulse Ox 97% RA; sv sv 16:24 11:15 Pulse 83bpm; Monitor: Normal Sinus RhythmResp 31bpm; Pulse Ox 97% 02 100% sv Non-rebreather mask; sv
--- NOTE | 2021-06-06 08:57 | EDPHYS ---
Physician Documentation [facility] Name: Alfie Zavala Age: 31 yrs Sex: Male : 1990 Arrival Date: 06/06/2021 Time: 07:20 Bed 3 Private MD: ED Physician Kay Chinchilla HPI: 06/06 07:20 This 31 yrs old Male presents to ER via EMS with complaints of Seizure. cp 07:20 The patient presents with a history of multiple seizures, a total of 3. Character of cp seizure(s): Motor activity: generalized, shaking all over, Incontinence: none. Seizure onset: this morning. Seizure Hx: Seizure medications: Lamictal, phenytoin. Associated injury: The patient did not suffer any apparent associated injury. EMS care: none. Current symptoms: Currently, the patient is not experiencing any symptoms. Historical: - Allergies: 07:30 No Known Allergies; ea - Home Meds: 07:30 Ambien 12.5 mg Oral tab 1 tab nightly [Active]; clonazepam 0.5 mg Oral tab 3 times per ea day [Active]; diazepam 10 mg Oral tab 1 tab daily prn for Acute Repetitive Seizures, Anxiety [Active]; fluoxetine 40 mg Oral cap 1 cap once daily [Active]; gabapentin 300 mg Oral cap 1 cap TID prn [Active]; lamotrigine 200 mg Oral tab 1 tab 2 times per day [Active]; Phenytoin 100 mg Oral every 8 hours [Active]; sumatriptan succinate 50 mg Oral tab [Active]; topiramate 50 mg Oral CSpX 1 cap twice a day [Active]; venlafaxine 75 mg Oral tab 1 tab 2 times per day [Active]; zolpidem 12.5 mg Oral TbMP 1 tab qhs prn [Active]; - PMHx: 07:30 status epilepticus; Seizures; Headaches; Depression; ea - Immunization history:: Adult Immunizations unknown. - Social history:: Smoking status: Patient denies any tobacco usage or history of. ROS: 07:25 Constitutional: Negative for body aches, chills, fever, poor PO intake. cp 07:25 Eyes: Negative for injury, pain, redness, and discharge. cp 07:25 Cardiovascular: Negative for chest pain. 07:25 Respiratory: Negative for cough, shortness of breath, wheezing. 07:25 Abdomen/GI: Negative for abdominal pain, nausea, vomiting, and diarrhea. 07:25 Neuro: Positive for history of seizures, Negative for altered mental status. 07:25 All other systems are negative. Exam: 07:28 Constitutional: The patient appears in no acute distress, alert, awake, cp non-diaphoretic, non-toxic, well developed, well nourished, obese. 07:28 Head/Face: Normocephalic, atraumatic. cp 07:28 Eyes: Periorbital structures: appear normal, Pupils: equal, round, and reactive to light and accomodation, Extraocular movements: intact throughout, Conjunctiva: normal, no exudate, no injection, Sclera: no appreciated abnormality, Lids and lashes: appear normal, bilaterally. 07:28 ENT: External ear(s): are unremarkable, Ear canal(s): are normal, clear, TM's: dullness, bilaterally, Nose: is normal, Mouth: Lips: moist, Oral mucosa: pink and intact, moist, Posterior pharynx: Airway: no evidence of obstruction, patent. 07:28 Neck: ROM/movement: is normal, is supple, without pain, no range of motions limitations. 07:28 Chest/axilla: Inspection: normal, Palpation: is normal, no crepitus, no tenderness. 07:28 Cardiovascular: Rate: tachycardic, Rhythm: regular, Edema: is not appreciated, JVD: is not appreciated. 07:28 Respiratory: the patient does not display signs of respiratory distress, Respirations: normal, no use of accessory muscles, no retractions, labored breathing, is not present, Breath sounds: are clear throughout, no decreased breath sounds, no stridor, no wheezing. 07:28 Abdomen/GI: Inspection: abdomen appears normal, Palpation: abdomen is soft and non-tender, in all quadrants. 07:28 Neuro: Orientation: to person, place \T\ time. Mentation: able to follow commands, slow to respond, Cerebellar function: is grossly normal, Motor: moves all fours, strength is normal, Sensation: is normal. 09:11 ECG was reviewed by the Attending Physician. cp Vital Signs: 07:12 BP 127 / 90; Pulse 120; Resp 30; Pulse Ox 97% ; sv 07:26 BP 127 / 90; Pulse 110; Resp 20; Temp 98.2; Pulse Ox 98% ; ea 07:36 BP 136 / 68; Pulse 99; Resp 31; Pulse Ox 100% on 15% Non-rebreather mask; sv 07:58 Weight 108.86 kg; sv 08:01 BP 120 / 78; Pulse 111; Resp 20; Pulse Ox 100% on 15% Non-rebreather mask; sv 08:46 BP 124 / 67; Pulse 109; Resp 14; Pulse Ox 96% ; sv 09:00 BP 114 / 68; Pulse 95; Resp 39; Pulse Ox 96% ; sv 10:00 BP 94 / 53; Pulse 90; Resp 44; Pulse Ox 97% ; sv 11:05 BP 87 / 53; Pulse 83; Resp 33; Pulse Ox 97% on 100% Non-rebreather mask; sv 11:15 BP 158 / 99; Pulse 83 MON; Resp 31; Pulse Ox 97% on 100% Non-rebreather mask; sv 11:49 Height 5 ft. 11 in. (180.34 cm); sv 11:49 Body Mass Index 33.47 (108.86 kg, 180.34 cm) sv 11:15 Normal Sinus Rhythm sv Procedures: 14:38 Intubation: Ventilated with 100% NRB prior to procedure. O2 saturation prior to cp procedure was 96 %. Intubated orally using # 4 Schustre blade with 7.5 mm ETT. Successful on third attempt. Ventilated with ventilator. Tube secured with ETT vasquez measured 23 cm at lip. Placement verified by CO2 detector with (+) color change, auscultating bilateral breath sounds, O2 saturation after procedure was 100 %. Patient tolerated well. MDM: 07:23 Patient medically screened. cp 08:00 Differential diagnosis: cerebral vascular accident, drug overdose, cardiac arrhythmia, cp seizure. 08:55 Data reviewed: vital signs, nurses notes, lab test result(s). 06/06 07:23 Order name: Acetaminophen 06/06 07:23 Order name: Basic Metabolic Panel 06/06 07:23 Order name: CBC with Diff; Complete Time: 08:22 06/06 08:22 Interpretation: Reviewed. 06/06 07:23 Order name: ETOH Level 06/06 07:23 Order name: Hepatic Function; Complete Time: 08:53 06/06 08:53 Interpretation: Normal except: GLOB 3.6. 06/06 07:23 Order name: PT-INR; Complete Time: 08:22 cp 06/06 07:23 Order name: Ptt, Activated; Complete Time: 08:22 cp 06/06 07:23 Order name: Salicylate cp 06/06 07:23 Order name: Urine Drug Screen cp 06/06 07:23 Order name: Acetaminophen Level; Complete Time: 08:53 EDMS 06/06 07:23 Order name: Basic Metabolic Panel; Complete Time: 08:53 EDMS 06/06 08:53 Interpretation: Normal except: K 3.3; CL 108. cp 06/06 07:25 Order name: Dilantin cp 06/06 07:26 Order name: Phenytoin (Dilantin) Level; Complete Time: 08:44 EDMS 06/06 08:50 Order name: SARS-COV-2 RT PCR; Complete Time: 08:53 EDMS 06/06 09:09 Order name: CT Head Brain wo Cont; Complete Time: 09:47 cp 06/06 14:45 Order name: Chest Single View XRAY ma2 06/06 15:15 Order name: RAD EDMS 06/06 15:50 Order name: Urine Dipstick-Ancillary EDMS 06/06 07:23 Order name: EKG; Complete Time: 07:24 cp 06/06 07:23 Order name: EKG - Nurse/Tech; Complete Time: 07:44 cp 06/06 07:23 Order name: IV Saline Lock; Complete Time: 07:44 cp 06/06 07:23 Order name: Labs collected and sent; Complete Time: 07:44 cp 06/06 07:23 Order name: Urine Dipstick-Ancillary (obtain specimen); Complete Time: 15:50 cp 06/06 07:23 Order name: Seizure Precautions; Complete Time: 07:44 cp 06/06 15:12 Order name: Muñoz; Complete Time: 15:17 cp EC:11 Rate is 94 beats/min. Rhythm is regular. NH interval is normal. QRS interval is normal. cp QT interval is normal. T waves are Inverted in lead aVR. Interpreted by me. Reviewed by me. Administered Medications: 07:35 Drug: Ativan (LORazepam) 2 mg Route: IVP; Site: left wrist; sv 09:07 Follow up: Response: No adverse reaction sv 07:40 Drug: NS 0.9% 1000 ml Route: IV; Rate: 1 bolus; Site: left wrist; sv 08:30 Follow up: Response: No adverse reaction; IV Status: Completed infusion; IV Intake: sv 1000ml 07:40 Drug: Keppra (levETIRAcetam) 1000 mg Route: IV; Rate: calculated rate; Site: left wrist;sv 07:55 Follow up: Response: No adverse reaction; IV Status: Completed infusion; IV Intake: sv 100ml 07:40 Drug: Ativan (LORazepam) 2 mg Route: IVP; Site: left wrist; sv 09:07 Follow up: Response: No adverse reaction sv 07:53 Drug: Ativan (LORazepam) 2 mg Route: IVP; Site: left wrist; sv 09:06 Follow up: Response: No adverse reaction sv 08:05 Drug: Phenytoin 20 mg/kg Route: IVPB; Rate: calculated rate; Site: left wrist; sv 08:35 Follow up: Response: No adverse reaction; IV Status: Completed infusion; IV Intake: sv 100ml 08:17 Drug: Ativan (LORazepam) 2 mg Route: IVP; Site: left wrist; sv 09:06 Follow up: Response: No adverse reaction sv 09:09 Not Given (Physician Discretion): Potassium Chloride 10 mEq IV at calculated rate once; cp administer over 1-2 hours 09:14 Drug: Ativan (LORazepam) 2 mg Route: IVP; Site: left wrist; sv 09:23 Follow up: Response: No adverse reaction sv 09:17 Drug: Ativan (LORazepam) 2 mg Route: IVP; Site: left wrist; sv 09:23 Follow up: Response: No adverse reaction sv 09:23 CANCELLED (Duplicate Order): Diazepam 5 mg IVP once sv 09:23 Drug: Valium (diazepam) 5 mg Route: IVP; Site: left wrist; sv 09:54 Follow up: Response: No adverse reaction sv 10:02 Drug: NS 0.9% 1000 ml Route: IV; Rate: 1 bolus; Site: left wrist; sv 10:55 Follow up: Response: No adverse reaction; IV Status: Completed infusion; IV Intake: sv 1000ml 10:10 Drug: Potassium Chloride 10 mEq Route: IV; Rate: calculated rate; Site: left wrist; sv 11:18 Follow up: Response: No adverse reaction; IV Status: Completed infusion; IV Intake: 50mlsv 10:55 Not Given (Physician Discretion): LaMICtal (lamoTRIgine) 100 mg PO once sv 10:56 Not Given (Physician Discretion): Potassium Effervescent Tablet 50 mEq PO once; sv dissolve in 4 ounces of water or juice 11:14 Drug: NS 0.9% 1000 ml Route: IV; Rate: 1 bolus; Site: left wrist; sv 11:25 Follow up: Response: No adverse reaction; IV Status: Infusion continued upon admission; sv IV Intake: 1000ml 11:36 Drug: NS 0.9% 1000 ml Route: IV; Rate: 125 ml/hr; Site: left wrist; sv 11:36 Follow up: Response: No adverse reaction; IV Status: Infusion continued upon admission sv 11:36 Follow up: IV Status: Infusion continued upon admission sv 14:47 CANCELLED (Physician Discretion): Ketamine 30 mg IVP once sv 14:47 CANCELLED (Physician Discretion): Ketamine 0.5 mg/min IVP at 30 mg/hr continuous; 100 sv mg in 100 ml NS Disposition Summary: 06/06/21 08:57 Hospitalization Ordered Hospitalization Status: Inpatient Admission cp Provider: Milton Gómez cp Condition: Serious cp Problem: an acute exacerbation cp Symptoms: have improved cp Bed/Room Type: Standard Location: [facility] ER HOLD(06/06/21 11:20) Room Assignment: ERHOLD-(06/06/21 11:20) eb Diagnosis - Epilepsy, unspecified, intractable, with status epilepticus cp Forms: - Medication Reconciliation Form cp - SBAR form cp Addendum: 06/08/2021 17:07 Co-signature as Attending Physician, Kay ibrahim a2 Signatures: Dispatcher [employer] Carol Cook RN RN sv Page, Corey, PA PA cp Antunez, Elena, RN RN ea Alzahri, Mohammad, MD MD ks2 Tereza Alcaraz Corrections: (The following items were deleted from the chart) 06/06 07:44 07:23 Suicide Screening (Premium) ordered. cp sv 07:57 07:41 CORONAVIRUS+MR.LAB.BRZ ordered. EDMS EDMS 09:23 09:21 Diazepam 5 mg IVP once ordered. cp sv 11:20 08:57 Intensive Care Unit cp eb 11: 08:57 cp eb 14: 13:51 Ketamine 30 mg IVP once ordered. cp sv 14: 13:51 Ketamine 0.5 mg/min IVP at 30 mg/hr continuous; 100 mg in 100 ml NS ordered. cp sv
--- NOTE | 2021-06-06 09:06 | P.HP ---
Certification for Inpatient Patient admitted to: Observation With expected LOS: <2 Midnights Patient will require the following post-hospital care: None Practitioner: I am a practitioner with admitting privileges, knowledge of patient current condition, hospital course, and medical plan of care. Services: Services provided to patient in accordance with Admission requirements found in Title 42 Section 412.3 of the Code of Federal Regulations Patient History Date of Service: 06/06/21 Primary Care Provider: Dr. Buckner Reason for admission: Seizures History of Present Illness: 31-year-old male with history of seizures, depression and noncompliance with medication and follow-up Patient presented with seizures. Patient has been noncompliant with his medication and follow-up for over 3 weeks. Patient previously on Dilantin and Lamictal. Patient was last seen in the hospital for active seizures in September. He was transferred to [facility] for 7-day monitoring. He reports he was there for about 4 days and sent home. He reports medications were adjusted. He does admit that he is not able to take his medications due to cost. Today he felt disoriented. He denies any severe headaches, chest pain or shortness of breath. In the ER patient had active seizures. Patient required Ativan up to 10 mg IV. Patient also started on Dilantin IV and Keppra IV. Patient now stable. White count 7.2, hemoglobin 13.6. Platelet count 222. Sodium 140, potassium 3.3. GFR unremarkable. Covid test negative. Urine drug screen pending. CT head pending. Patient admitted to ICU for close monitoring. In the ER patient stable. Patient admits to THC use. Some alcohol every now and then. Patient reports noncompliant with his medication. Allergies No Known Allergies Allergy (Unverified 02/07/20 14:05) Home medications list reviewed: Yes Home Medications: PHENYTOIN ER Cap [Dilantin ER Cap*] 100 tab PO TID 02/07/20 - Past Medical/Surgical History Diabetic: No -: Seizure disorder -: Depression with anxiety -: Noncompliance with follow-up and medication -: THC use -: Appendectomy Psychosocial/ Personal History: Patient is . He lives with his parents. - Family History Father -: Diabetes Brother -: Hypertension Sister -: Cancer - Social History Smoking Status: Light Tobacco smoker (1-9 cigarettes/day) Counseled patient to stop smoking for: less than 10 minutes Smoking therapy provided: Yes Patient receptive to therapy: Yes Alcohol use: Yes CD- Drugs: Yes Caffeine use: Yes Place of Residence: Home Review of Systems General: As per HPI Eyes: Unremarkable ENT: Unremarkable Respiratory: Unremarkable Cardiovascular: Unremarkable Gastrointestinal: Unremarkable Genitourinary: Unremarkable Musculoskeletal: Unremarkable Integumentary: Unremarkable Neurological: As per HPI Lymphatics: Unremarkable Physical Examination - Studies Laboratory Data (last 24 hrs) 06/06/21 07:30: PT 12.2, INR 1.06, APTT 30.2 06/06/21 07:30: WBC 7.20, Hgb 13.6, Hct 40.0, Plt Count 222 06/06/21 07:30: Sodium 140, Potassium 3.3 L, BUN 7, Creatinine 0.87, Glucose 96, Total Bilirubin 0.4, AST 21, ALT 31, Alkaline Phosphatase 98 Assessment and Plan - Plan COVID: Negative CT head: Pending Physical Exam: GENERAL: The patient is a well-developed, well-nourished, in no apparent distress. Alert and oriented x3. Patient is post ictal. Patient appropriate and follows commands. VITAL SIGNS: Reviewed HEENT: Head is normocephalic and atraumatic. Extraocular muscles are intact. Pupils are equal, round, and reactive to light and accommodation. Nares appeared normal. Mouth is well hydrated and without lesions. Mucous membranes are moist. NECK: Supple. No carotid bruits. No lymphadenopathy or thyromegaly. LUNGS: Clear to auscultation. No crackles or wheezes are heard. HEART: Regular rate and rhythm, no appreciable gallops, rubs, murmurs or extra heart sounds ABDOMEN: Soft, nontender, and nondistended. Positive bowel sounds. No hepatosplenomegaly was noted. EXTREMITIES: Without any cyanosis, clubbing, rash, lesions or peripheral edema. NEUROLOGIC: The patient is oriented to person, place and time. Strength and sensation are grossly intact. Face is symmetric. SKIN: Normal color, turgor and temperature. No ulcerations or rashes noted. Impression: Acute on chronic seizures with noncompliance of medication Depression with anxiety THC use Plan: Acute on chronic seizures with noncompliance of medication: Patient admitted for further evaluation and treatment. Patient will be admitted to ICU for close monitoring. Spoke at length with neurology concerning plan of care. Due to his poor compliance with follow-up and cost of medication. We will continue with Dilantin and Keppra as this will likely be the most affordable at discharge. We will continue with Keppra 500 mg 1 pill twice daily IV and Dilantin 100 mg 3 times a day IV. We can switch this over to oral medication in the next 24 to 40 hours with stability. We will continue with IV fluids. DVT prophylaxis in place. Provide Ativan as needed for breakthrough seizures. Await further recommendations from neurology. Continue to monitor patient closely. Seizure precaution in place. Depression with anxiety: Obtain and restart home medication. THC use: We will check urine drug screen. Code Status: Full Code DVT prophylaxis: Lovenox Advanced Care Planning-30 minutes: Home at discharge Discharge Plan: Home Plan to discharge in: 72 Hours - Advance Directives Does patient have a Living Will: No Does patient have a Durable POA for Healthcare: No - Code Status/Comfort Care Code Status Assessed: Yes (Full code) Time Spent Managing Pts Care (In Minutes): 55
--- NOTE | 2021-06-06 09:41 | RAD REPORT ---
EXAM DESCRIPTION: CT - Head Brain Wo Cont - 06/06/2021 9:29 am CLINICAL HISTORY: SEIZURE COMPARISON: Head C Spine Mpr Wo Con dated 09/26/2020 TECHNIQUE: Axial 5 mm thick images of the head were obtained without IV contrast. All CT scans are performed using dose optimization technique as appropriate and may include automated exposure control or mA/KV adjustment according to patient size. FINDINGS: No intracranial hemorrhage, mass, edema or shift of mid-line structures. No acute infarcti on changes seen. No abnormal extra-axial fluid collections. Ventricles are normal. Mastoid air cells and visualized portions of the paranasal sinuses are clear. No acute bony findings. Asymmetry is created by head tilt. There is no clear change from the September 2020 study. IMPRESSION: Negative non-contrast CT head examination. No identifiable change from comparison.
[2021-06-06] MEDS ORDERED: DIAZEPAM 10 MG/2 ML INJ SYRINGE ONE ×2 (09:44→14:02)
[2021-06-06] MEDS ORDERED: POTASSIUM 25 MEQ EFFERV TAB ONE (10:12)
[2021-06-06] MEDS ORDERED: KCL 20 MEQ/100 mL IVPB 20 MEQ/100 ML BAG IV ONE (10:27)
[2021-06-06] MEDS ORDERED: NA CHLORIDE 0.9% 1,000 ML IV SCH (11:32)
[2021-06-06] MEDS ORDERED: LORazepam 2 MG/ML VIAL IV PRN (11:32)
[2021-06-06] MEDS ORDERED: ACETAMINOPHEN 500 MG TAB PO PRN (11:32)
[2021-06-06] MEDS ORDERED: ONDANSETRON 4 MG/2 ML VIAL IV PRN (11:32)
[2021-06-06 11:52] VITALS: BMI 33.5
[2021-06-06 12:37] VITALS: O2SAT 100
[2021-06-06] MEDS ORDERED: LORazepam 2 MG/ML VIAL IV ONE ×2 (13:44→15:18)
[2021-06-06] MEDS ORDERED: DIAZEPAM 10 MG/2 ML INJ SYRINGE IV ONE ×3 (13:44→14:48)
[2021-06-06] MEDS ORDERED: NA CHLORIDE 0.9% 50 ML ONE (14:30)
[2021-06-06] MEDS ORDERED: RSI MEDICATION KIT IV ONE (14:38)
[2021-06-06] MEDS ORDERED: KETAMINE HCL 500 MG/5 ML VIAL ONE (14:38)
[2021-06-06] MEDS ORDERED: ONDANSETRON 4 MG/2 ML VIAL ONE (14:39)
[2021-06-06] MEDS ORDERED: NA CHLORIDE 0.9% 500 ML ONE (14:39)
--- NOTE | 2021-06-06 14:41 | P.DS ---
Admission Date: 06/06/21 Discharge Date: 06/06/21 Primary Care Provider: Dr. Buckner Disposition: TRANSFER TO [facility] Discharge Condition: CRITICAL Reason for Admission: Seizures Consultations: Neurology-Dr. Christensen Procedures: COVID: Negative CT head: Pending Impression: Status epilepticus with Acute on chronic seizures,noncompliance of medication Depression with anxiety THC use Brief History of Present Illness: 31-year-old male with history of seizures, depression and noncompliance with medication and follow-up Patient presented with seizures. Patient has been noncompliant with his medication and follow-up for over 3 weeks. Patient previously on Dilantin and Lamictal. Patient was last seen in the hospital for active seizures in September. He was transferred to [facility] for 7-day monitoring. He reports he was there for about 4 days and sent home. He reports medications were adjusted. He does admit that he is not able to take his medications due to cost. Today he felt disoriented. He denies any severe headaches, chest pain or shortness of breath. In the ER patient had active seizures. Patient required Ativan up to 10 mg IV. Patient also started on Dilantin IV and Keppra IV. Patient now stable. White count 7.2, hemoglobin 13.6. Platelet count 222. Sodium 140, potassium 3.3. GFR unremarkable. Covid test negative. Urine drug screen pending. CT head pending. Patient admitted to ICU for close monitoring. In the ER patient stable. Patient admits to THC use. Some alcohol every now and then. Patient reports noncompliant with his medication. Hospital Course: Patient was admitted but continued to have active uncontrolled seizures. Patient was evaluated. Case discussed in detail with neurology. Patient had already received 750 mg of Dilantin and 1000 mg of Keppra. Patient received several doses of Ativan and Valium. Neurology recommended to give another gram of Dilantin due to his weight. The patient continued to have uncontrolled seizures after medication. It was determined that the patient needed to be intubated to sedate and start either phenobarbital or propofol. ER team helped with intubation. Intubation performed. Patient now intubated. Since the patient was intubated and with uncontrolled seizures/status epilepticus, neurology recommended transfer to neuro ICU for higher level of care including continuous EEG monitoring. Case discussed with [facility] neuro. Patient was accepted. Patient currently stable at this time. Patient will be started on propofol for sedation and control of seizures. Patient stable for transfer. Vital Signs/Physical Exam: Temp Pulse Resp BP Pulse Ox 71 37 H 123/96 H 97 06/06/21 12:00 06/06/21 12:00 06/06/21 12:00 06/06/21 12:00 General: Other (Patient intubated and sedated) Neck: Supple Respiratory: Clear to auscultation bilaterally Cardiovascular: Normal pulses Gastrointestinal: Normal bowel sounds Musculoskeletal: No erythema, No warmth Integumentary: No erythema, No warmth, No cyanosis Neurological: Other (Patient intubated) Laboratory Data at Discharge: WBC 7.20 K/uL (4.3-10.9) 06/06/21 07:30 Hgb 13.6 g/dL (13.6-17.9) 06/06/21 07:30 Hct 40.0 % (39.6-49.0) 06/06/21 07:30 Plt Count 222 K/uL (152-406) 06/06/21 07:30 PT 12.2 SECONDS (9.5-12.5) 06/06/21 07:30 INR 1.06 06/06/21 07:30 APTT 30.2 SECONDS (24.3-36.9) 06/06/21 07:30 Sodium 140 mmol/L (136-145) 06/06/21 07:30 Potassium 3.3 mmol/L (3.5-5.1) L 06/06/21 07:30 BUN 7 mg/dL (7-18) 06/06/21 07:30 Creatinine 0.87 mg/dL (0.55-1.3) 06/06/21 07:30 Glucose 96 mg/dL (74-106) 06/06/21 07:30 Total Bilirubin 0.4 mg/dL (0.2-1.0) 06/06/21 07:30 AST 21 U/L (15-37) 06/06/21 07:30 ALT 31 U/L (12-78) 06/06/21 07:30 Alkaline Phosphatase 98 U/L (45-117) 06/06/21 07:30 Home Medications: PHENYTOIN ER Cap [Dilantin ER Cap*] 100 tab PO TID 02/07/20 Physician Discharge Instructions: [facility] for close monitoring including EEG continuous monitoring. Patient remains intubated and sedated. Diet: NPO Activity: Bedrest Followup: Lanette Buckner DO, DO [Primary Care Provider] - Time spent managing pt's care (in minutes): 60
[2021-06-06] MEDS ORDERED: PHENYTOIN Inj 1,000 MG in NA CHLORIDE 0.9% 100 ML IV STA (14:48)
--- NOTE | 2021-06-06 15:14 | RAD REPORT ---
EXAM DESCRIPTION: RAD - Chest Single View - 06/06/2021 3:02 pm CLINICAL HISTORY: post intubation COMPARISON: Chest Single View dated 10/13/2018; Chest Single View dated 09/10/2018; CHEST SINGLE VIE W dated 11/04/2015 FINDINGS: Endotracheal tube above the raghav in satisfactory position. The NG tube goes below the le vanessa diaphragm and presumably terminates in the stomach. Cardiomegaly. Diffuse low lung volumes with h azy opacities in the left lung. No definite airspace disease in the right lung is identified. IMPRESSION: Endotracheal tube in satisfactory position. Hazy left lung airspace disease may reflect pneumonia, asymmetric edema, or aspiration (typically right sided though).
[2021-06-06] MEDS ORDERED: propofoL 1,000 MG/100 ML VIAL IV ONE ×2 (15:22→16:50)
[2021-06-06] MEDS ORDERED: ETOMIDATE 20 MG/10 ML VIAL IV STA (15:30)
[2021-06-06] MEDS ORDERED: KETAMINE HCL 500 MG/5 ML VIAL IV STA (15:30)
[2021-06-06] MEDS ORDERED: ONDANSETRON 4 MG/2 ML VIAL IV ONE (15:30)
[2021-06-06] MEDS ORDERED: ROCURONIUM 50 MG/5 ML VIAL IV STA (15:32)
--- NOTE | 2021-06-06 15:32 | CON ---
Consultation called because of status epilepticus. History Of Present Illness: Mr. Zavala is a 31-year-old right-handed patient who has a his tory of poor compliance with antiepileptic medication and multiple hospital visits for seizures. He has been seen in clinic for seizures. He comes into [facility] with status epilepticus, hav ing [id number] seizures and being off his antiepileptic medications because he reportedly could not afford the medications. He should have been on a combination of Dilantin, Keppra and Lamictal, but was out of all medications. At [facility], after multiple seizures, he was given fosphenyto in 1 g in the emergency room, given a gram of Keppra and by the way , his Dilantin level is 2.2, and actually received 10 mg of Valium but was still in and out of seizures. At the time of my evaluation , he did appear to stop seizing momentarily. He did seem to turn towards voice, did not quite follow commands, would move his arms and legs. It seemed he is about to vomit or throw up. He did have ox ygen non-rebreather on his face. He did turn to the right side and the head of bed was up a little b it, but the plan had been made to have him intubated and potentially transferred for higher level of care since there is no EEG monitoring at this point and standard of care requires him to at least hav e an EEG available and done while he is intubated and potentially protected from ongoing seizures. Blood work showed a normal complete blood count with differential. Coagulation panel was normal. Ch emistries are essentially unremarkable except slightly low potassium of 3.3, chloride 108. His calci um is slightly low at 8.4. Liver function studies are normal. Urine drug screen was pending. His D ilantin level as noted 2.2. He was negative for cocaine and amphetamines as well COVID-[address] Gómez, the hospitalists was included in the discussion and he contacted the transfer center for transfer to [place] for higher level of care and that is in the midst of ongoing transfer as the kellie ent is being intubated in preparation for either phenobarbital or propofol to help stop the status ep ilepticus. Past Medical History: Includes migraines and depression. Allergies: NO KNOWN DRUG ALLERGIES. Medications: At home, Ambien 12.5 mg daily, clonazepam 0.5 mg 3 times daily, diazepam 10 mg as neede d for repeated seizures that are prolonged, fluoxetine 40 mg daily, gabapentin 300 mg daily, lamotrig ine 200 mg twice daily, phenytoin 100 mg every 8 hours, Topamax 50 mg twice daily. Family History: Noncontributory. Social History: Denies alcohol, tobacco, or IV drug use as noted in chart. Review of Systems: When the patient was able to interact, there was reportedly no fevers or chills. There is no nausea, vomiting, myalgias, arthralgias, rash, headache, weight change. No active psychiatric issues or gas trointestinal issues. Physical Examination: Vital Signs: Blood pressure 122/96, pulse 71, respiratory rate ranged from 18 to 24, temperature afe brile, oxygen 100% on 15 non-rebreather. Weight 239 pounds, height 5 feet 11 inches. General: Mr. Zavala is in the ICU, about to be intubated. He is normocephalic, atraumatic. Sclera e anicteric. Oropharynx pink and moist. Neck: Supple. Chest: Clear. Heart: Regular. Extremities: Show no edema or cyanosis. Neurologic: He did arouse and did show verbal and tactile stimulus at the time of my evaluation, was in between seizures, had just received a gram of fosphenytoin and a gram of Keppra. He was somewhat sedated, did appear to be nauseated and a bag was given for him to throw up as he is getting ready t o be intubated. He did turn somewhat to the right side. Uses left arm to grab onto the right bed ra il. In terms of cranial nerves, no obvious deficits noted 2 through 12. His motor examination appea red symmetric in terms of use of the arms and legs. Could not fully assess his sensation. His tone is normal. Cannot assess his gait. His head CT scan was negative for any acute ischemic or hemorrhagic changes. Assessment: Mr. Zavala is a 31-year-old patient with multiple seizures. He came to [facility] around 9 in the morning. Reportedly had at least 2 perhaps or more seizures prior to that and h as had intermittent seizures off and on and these are secondary generalized seizures while in hospita l. He has now on multiple antiepileptic medications by IV and ought to be intubated and to be transf erred for higher level of care, continuous EEG, ongoing monitoring to help titrate the patient's cove rage and break status epilepticus. Plan: 1.Keppra, may give 750 mg IV twice daily after the 1 g load. 2.Fosphenytoin. He did receive a gram of fosphenytoin, may continue 100 mg q.8 hours. 3.If the patient continues to seize, we will give phenobarbital 100 mg as he is intubated and may go to propofol, but he has to be monitored by EEG at that point, and he is being transferred for higher level of care after the transfer center had been contacted in [place]. He needs an ICU bed with [facility] ICU available. 4.Once the patient has been stabilized and he is out of status epilepticus at his discharge, he shou ld follow up with Dr. Christensen's clinic within a month and will have blood level checked of his pheny toin and Keppra and potential other antiepileptic medications as necessary. IGLESIA/VANESA Voice ID: [id number] Report ID: [id number]
[2021-06-06 15:50] LABS: Urine Blood Trace-lysed (Negative); Urine Glucose Negative (Negative); Urine Protein Negative (Negative)
[2021-06-06 16:01] LABS: Barbiturates NEGATIVE (NEGATIVE); Benzodiazepines POSITIVE (NEGATIVE); Cocaine NEGATIVE (NEGATIVE); METHAMPHETAM NEGATIVE (NEGATIVE); Methadone NEGATIVE (NEGATIVE); Opiates NEGATIVE (NEGATIVE); Phencyclidine NEGATIVE (NEGATIVE); THC Cannibis POSITIVE (NEGATIVE)
[2021-06-06 16:20] VITALS: BP 133/92
[2021-06-06] MEDS ORDERED: ETOMIDATE 20 MG/10 ML VIAL IV ONE (16:51)
[2021-06-06] MEDS ORDERED: ROCURONIUM 50 MG/5 ML VIAL IV ONE (16:51)
[2021-06-06 16:59] VITALS: TEMP 98.2
[2021-06-06] MEDS ORDERED: PHENYTOIN NA 100 MG/2 ML IV SCH (17:00)
[2021-06-06] MEDS ORDERED: levETIRAcetam 500 MG in NA CHLORIDE 0.9% 100 ML IV SCH (21:00)
[2021-06-07] MEDS ORDERED: THIAMINE HCL 100 MG TABLET PO SCH (09:00)
[2021-06-07] MEDS ORDERED: FOLIC ACID 1 MG TABLET PO SCH (09:00)
[2021-06-07] MEDS ORDERED: ENOXAPARIN 40 MG/0.4 ML SQ SCH (09:00)
== END 2021-06-06 16:52 | disposition short-term general hospital (02) | DRG 101 ==
LOC: ER 07:18 → ERHOLD 09:00
PROVIDERS: ADMIT Family Medicine; ATTEND Family Medicine
PROC: 5A1935Z Respiratory Ventilation, Less than 24 Consecutive Hours (ICD-10-PCS; principal; 2021-06-06)
PROC: 0BH17EZ Insertion of Endotracheal Airway into Trachea, Via Natural or Artificial Opening (ICD-10-PCS; 2021-06-06)
DX: G40.911 Epilepsy, unspecified, intractable, with status epilepticus (principal); F41.8 Other specified anxiety disorders; Z91.14 Patient's other noncompliance with medication regimen; Z79.899 Other long term (current) drug therapy; Z91.19 Patient's noncompliance with other medical treatment and regimen; Z20.822 Contact with and (suspected) exposure to COVID-19
CPT/HCPCS: 31500; 36415; 70450; 71045; 80048; 80076; 80185; 80307; 80320; 80329; 81003; 85025; 85610; 85730; 93005; 94002; 94003; 96361; 96365; 96367; 96375; 99285; J1165; J1953; J2405; J2704; J3360; J3480; J7030; J7040; U0003

== ENCOUNTER 2022-03-15 17:57 | Emergency (ER) | payer SELFPAY ==
[2022-03-15] MEDS ORDERED: SUCCINYLCHOLINE 20 MG/ML (10 ML) IV ONE (17:58)
[2022-03-15] MEDS ORDERED: ETOMIDATE 20 MG/10 ML VIAL IV ONE (17:58)
--- OUTSIDE RECORDS SUMMARY | 2022-03-15 18:03 | XMS REPORT | Continuity of Care Document ---
:1990 Author Organization [facility] t Address [address] [place] [address] Care Team Providers Name Role Phone MAYI GARSIA Primary Care Physician Unavailable MARCELINA MONTOYA Attending Clinician Unavailable Jessica PATEL Attending Clinician Unavailable SHELBIE AUGUST Attending Clinician Unavail able FRANCISCA BRUCE Attending Clinician Unavailable MARCELINA MONTOYA Admitting Clinician Unavailable Jessica PATEL Admitting Clinician Unavailable Niecy VALIENTE Admitting Clinician Unavailable SHELBIE AUGUST Admitting Clinician Unavail able FRANCISCA BRUCE Admitting Clinician Unavailable Problems This patient has no known problems. Allergies, Adverse Reactions, Alerts Allergy Allergy Status Severity Reaction(s) Onset Inactive Treating Comm ents Source Name Type Date Date Clinician LORAZEPA Allergy Active Med Hives 2017- SLEH M 08-10 00:00: 00 NO KNOWN Allergy Active [facility] Medications This patient has no known medications. Vital Signs Vital Name Observation Time Observation Value Comments Source HEIGHT 2020-09-29 05:00:00 177.8 cm WEIGHT 2020-09-29 05:00:00 113.399 kg WEIGHT 2021-06-07 07:44:00 127.2 kg HEIGHT 2021-06-06 18:05:00 180.3 cm WEIGHT 2021-06-06 18:05:00 123.8 kg WEIGHT 2021-06-07 07:44:00 127.2 kg HEIGHT 2021-06-06 18:05:00 180.3 cm WEIGHT 2021-06-06 18:05:00 123.8 kg HEIGHT 2020-09-29 05:00:00 177.8 cm WEIGHT 2020-09-29 05:00:00 113.399 kg Procedures This patient has no known procedures. Encounters Start End Encounter Admission Attending Care Care Encounter Source Date/Time Date/Time Type Type Clinicians Facility Department ID 2021-08-21 Inpatient UR BOB [facility] Neurology [id number] [facility] 11:31:32 JETT CARDOZA 2021-06-06 Inpatient UR JORGE [facility] Neuro ICU [id number] [facility] 17:43:00 BECKY Results Test Description Test Time Test Comments Results Result Comments Source PHENYTOIN LEVEL, TOTAL 2021-06-10 11:31:00 Test Item Value Reference Range Interpretation Comme nts PHENYTOIN (DILANTIN) (BEAKER) (test code = 605) 13.6 ug/mL 10.0-2 0.0 Industrial Cook ID - [id number] METABOLIC [id number] 06:02:00 Test Item Value Reference Range Interpretation Comments SODIUM (BEAKER) 142 meq/L 136-145 (test code = 381) POTASSIUM (BEAKER) 3.3 meq/L 3.5-5.1 L (test code = 379) CHLORIDE (BEAKER) 106 meq/L 98-107 (test code = 382) CO2 (BEAKER) (test 26 meq/L 22-29 code = 355) BLOOD UREA NITROGEN 9 mg/dL 7-21 (BEAKER) (test code = 354) CREATININE (BEAKER) 0.69 mg/dL 0.57-1.25 (test code = 358) GLUCOSE RANDOM 80 mg/dL 70-105 (BEAKER) (test code = 652) CALCIUM (BEAKER) 8.8 mg/dL 8.4-10.2 (test code = 697) EGFR (BEAKER) (test 132 mL/min/1.73 ESTIM ATED GFR IS code = 1092) sq m NOT ACCURATE CREATININE CLEARANCE IN PREDICTING GLOMERULAR FILTRATION RATE . ESTIMATED GFR I S NOT APPLICABLE FOR DIALYSIS PATIEN TS. Industrial Cook ID - DIEGO [facility] (HEMOGRAM ONLY)2021-06-10 05:18:00 Test Item Value Reference Range Interpretation Comments WHITE BLOOD CELL COUNT (BEAKER) 5.6 K/ L 3.5-10.5 (test code = 775) RED BLOOD CELL COUNT (BEAKER) 4.61 M/ L 4.63-6.08 L (test code = 761) HEMOGLOBIN (BEAKER) (test code = 13.7 GM/DL 13.7-17.5 410) HEMATOCRIT (BEAKER) (test code = 41.3 % 40.1-51.0 411) MEAN CORPUSCULAR VOLUME (BEAKER) 89.6 fL 79.0-92.2 (test code = 753) MEAN CORPUSCULAR HEMOGLOBIN 29.7 pg 25.7-32.2 (BEAKER) (test code = 751) MEAN CORPUSCULAR HEMOGLOBIN CONC 33.2 GM/DL 32.3-36.5 (BEAKER) (test code = 752) RED CELL DISTRIBUTION WIDTH 13.2 % 11.6-14.4 (BEAKER) (test code = 412) PLATELET COUNT (BEAKER) (test 210 K/CU MM 150-450 code = 756) MEAN PLATELET VOLUME (BEAKER) 10.5 fL 9.4-12.4 (test code = 754) NUCLEATED RED BLOOD CELLS 0 /100 WBC 0-0 (BEAKER) (test code = 413) SPUTUM CULTURE + GRAM [id number] 15:06:00 Test Item Value Reference Interpretation Comments Range CULTURE (BEAKER) METHICILLIN A 4+ Methicil funmi (test code = 1095) RESISTANT resistant STAPHYLOCOCCUS Staphylococcu s AUREUS aureus Clindamycin (test S code = 10) Erythromycin (test R code = 4) Linezolid (test code S = 40) Nitrofurantoin (test S code = 23) Oxacillin (test code R = 14) Rifampin (test code = S 43) Tetracycline (test S code = 2) Trimethoprim + S Sulfamethoxazole (test code = 47) Vancomycin (test code S = 13) GRAM STAIN RESULT 4+ WBCs (BEAKER) (test code = 1123) GRAM STAIN RESULT 0-5 epithelial (BEAKER) (test code = cells 228840) GRAM STAIN RESULT 4+ gram positive (BEAKER) (test code = cocci in chains, 089007) pairs and clusters 4+ Normal respiratory beatrice presentBASIC METABOLIC [id number] 04:10:00 Test Item Value Reference Range Interpretation Comments SODIUM (BEAKER) 140 meq/L 136-145 (test code = 381) POTASSIUM (BEAKER) 3.4 meq/L 3.5-5.1 L Specimen slightly (test code = 379) hemolyzed CHLORIDE (BEAKER) 105 meq/L 98-107 (test code = 382) CO2 (BEAKER) (test 24 meq/L 22-29 code = 355) BLOOD UREA NITROGEN 10 mg/dL 7-21 (BEAKER) (test code = 354) CREATININE (BEAKER) 0.75 mg/dL 0.57-1.25 Specimen slightly (test code = 358) hemolyzed GLUCOSE RANDOM 88 mg/dL 70-105 (BEAKER) (test code = 652) CALCIUM (BEAKER) 8.1 mg/dL 8.4-10.2 L (test code = 697) EGFR (BEAKER) (test 120 mL/min/1.73 ESTIM ATED GFR IS code = 1092) sq m NOT ACCURATE CREATININE CLEARANCE IN PREDICTING GLOMERULAR FILTRATION RATE . ESTIMATED GFR I S NOT APPLICABLE FOR DIALYSIS PATIEN TS. Industrial Cook ID - CHANDA WCBC W/PLT COUNT & AUTO [id number] 04:08:00 Test Item Value Reference Range Interpretation Comments WHITE BLOOD CELL COUNT (BEAKER) 6.4 K/ L 3.5-10.5 (test code = 775) RED BLOOD CELL COUNT (BEAKER) 3.78 M/ L 4.63-6.08 L (test code = 761) HEMOGLOBIN (BEAKER) (test code = 11.3 GM/DL 13.7-17.5 L 410) HEMATOCRIT (BEAKER) (test code = 34.0 % 40.1-51.0 L 411) MEAN CORPUSCULAR VOLUME (BEAKER) 89.9 fL 79.0-92.2 (test code = 753) MEAN CORPUSCULAR HEMOGLOBIN 29.9 pg 25.7-32.2 (BEAKER) (test code = 751) MEAN CORPUSCULAR HEMOGLOBIN CONC 33.2 GM/DL 32.3-36.5 (BEAKER) (test code = 752) RED CELL DISTRIBUTION WIDTH 13.0 % 11.6-14.4 (BEAKER) (test code = 412) PLATELET COUNT (BEAKER) (test 172 K/CU MM 150-450 code = 756) MEAN PLATELET VOLUME (BEAKER) 10.9 fL 9.4-12.4 (test code = 754) NUCLEATED RED BLOOD CELLS 0 /100 WBC 0-0 (BEAKER) (test code = 413) NEUTROPHILS RELATIVE PERCENT 66 % (BEAKER) (test code = 429) LYMPHOCYTES RELATIVE PERCENT 21 % (BEAKER) (test code = 430) MONOCYTES RELATIVE PERCENT 8 % (BEAKER) (test code = 431) EOSINOPHILS RELATIVE PERCENT 3 % (BEAKER) (test code = 432) BASOPHILS RELATIVE PERCENT 1 % (BEAKER) (test code = 437) NEUTROPHILS ABSOLUTE COUNT 4.24 K/ L 1.78-5.38 (BEAKER) (test code = 670) LYMPHOCYTES ABSOLUTE COUNT 1.37 K/ L 1.32-3.57 (BEAKER) (test code = 414) MONOCYTES ABSOLUTE COUNT (BEAKER) 0.51 K/ L 0.30-0.82 (test code = 415) EOSINOPHILS ABSOLUTE COUNT 0.21 K/ L 0.04-0.54 (BEAKER) (test code = 416) BASOPHILS ABSOLUTE COUNT (BEAKER) 0.05 K/ L 0.01-0.08 (test code = 417) IMMATURE GRANULOCYTES-RELATIVE 0 % 0-1 PERCENT (BEAKER) (test code = 2801) EEG W VID 12-26 HR CONTINUOUS MONITORING (VEEG)2021-06-08 11:09:00 [facility] CENTERName: FRED ZAVALALO : 1990 [facility] Report NAME: Maryanne Zavala DATE OF EE06/07/21-06/08/21 DATE OF REPORT: 06/08/21 EE ACC: [id number] Start time: 10:02 AM on 06/07/21 Stop time: 9:17 AM on 06/08/21 ICD-10: R56.9 CPT Code: 04919 HISTORY: 31-year-old man with history of epilepsy, anxiety and depression, who was admitted for status epilepticus. MEDICATIONS THAT COULD AFFECTEEG: levetiracetam, phenytoin, precede TECHNICAL SUMMARY: This is a [employer] digital Video-EEG recorded with 32 input channels reviewed with bipolar and referential montages using the modified combinatorial system nomenclature. DESCRIPTION OF RECORD: At the beginning, the background was disorganized and primarily consisted of continuous low voltage generalized polymorphic delta with superimposed diffuse moderate-voltage beta activity. After 5:30 PM on 06/07/21, there were frequent epochsduring which the background activity became higher voltage, with frequent eye blink, movement and myogenic artifacts, representing wakefulness. After 8:20 AM on 06/08/21 (extubation), waking backgroundappeared which consisted of diffuse low-voltage beta with no sustained posterior dominant rhythm noted. VIDEO EVENTS: Event #1: At around 10:40 AM on 06/07, patient became intermittently agitated with non-rhythmic left hand shaking and leg kicking, accompanied by tachycardia. EEG during this event showed movement artifacts with no electrographic seizures noted. Event #2: At 8:29 AM on 06/08, patient started to have bobbing head movement, intermittent leg straightening and non-rhythmic shaking,lasting for 2 minutes. EEG during this event showed movement artifacts with no electrographic seizures noted. HYPERVENLITATION: not done. PHOTIC STIMULATION: not done. ECG FINDINGS: Normal sinus rhythm. IMPRESSION: Abnormal Video EEG due to: - Diffuse background slowing and disorganization, delta improving to beta/alpha range, reactive CLINICAL CORRELATION: This study captured two clinical events with non-rhythmic extremity and body shaking, which had no electrographic seizure correlate on scalp EEG. There was initially underlying severe encephalopathy that is nonspecific in etiology, which significantly improved over the course of the recording. Excessive beta can be due to medication effects (ex, benzodiazepine). There were no electrographic seizures or epileptiform discharges. Compared to prior day's study, the background has improved. Above findings were communicated with NeuroICU team at 9 AM on 06/08/21. Jamshid Campbell Neurophysiology Fellow I certify that I have personally reviewed the entire EEG with the fellow, edited the report and agree with the findings. Aleksandr Ortega M.D., Ph.D. Epilepsy/Neurophysiology Attending PHENYTOIN LEVEL, [id number] 10:37:00 Test Item Value Reference Range Interpretation Comments PHENYTOIN (DILANTIN) (BEAKER) 14.2 ug/mL 10.0-20.0 (test code = 605) Industrial Cook ID - [id number], CHEST, 1 VIEW, NON [id number] 09:28:00Reason for exam:->IntubatedShould this be performed at the bedside?->Yes [facility] 1990 Sex: MFINAL REPORT HISTORY: Intubation COMPARISON: 06/07/2021 at 1429 hours FINDINGS: The endotracheal tube appears to have been removed. Nasogastric tube tip is in the region ofthe stomach. Patchy bibasilar airspace consolidation is similar in appearance and may reflect atelectasis or pneumonia. No pleural effusions or pneumothorax are identified. Heart shadow normal in size.Signed: Amparo Morrellepray [facility] Verified Date/Time: 06/08/2021 09:28:05 Reading Location: [address] Transitional Reading Room BASIC METABOLIC [id number] 03:40:00 Test Item Value Reference Range Interpretation Comments SODIUM (BEAKER) 142 meq/L 136-145 (test code = 381) POTASSIUM (BEAKER) 3.7 meq/L 3.5-5.1 (test code = 379) CHLORIDE (BEAKER) 107 meq/L 98-107 (test code = 382) CO2 (BEAKER) (test 24 meq/L 22-29 code = 355) BLOOD UREA NITROGEN 9 mg/dL 7-21 (BEAKER) (test code = 354) CREATININE (BEAKER) 0.75 mg/dL 0.57-1.25 (test code = 358) GLUCOSE RANDOM 109 mg/dL 70-105 H (BEAKER) (test code = 652) CALCIUM (BEAKER) 8.3 mg/dL 8.4-10.2 L (test code = 697) EGFR (BEAKER) (test 120 mL/min/1.73 ESTIM ATED GFR IS code = 1092) sq m NOT ACCURATE CREATININE CLEARANCE IN PREDICTING GLOMERULAR FILTRATION RATE . ESTIMATED GFR I S NOT APPLICABLE FOR DIALYSIS PATIEN TS. Industrial Cook ID - CHANDA [id number] 03:40:00 Test Item Value Reference Range Interpretation Comments MAGNESIUM (BEAKER) (test code = 1.7 mg/dL 1.6-2.6 627) Industrial Cook ID Roverto ARMAS [id number] 03:40:00 Test Item Value Reference Range Interpretation Comments PHOSPHORUS (BEAKER) (test code = 2.2 mg/dL 2.3-4.7 L 604) Industrial Cook ID - CHANDA WCBC W/PLT COUNT & AUTO [id number] 03:19:00 Test Item Value Reference Range Interpretation Comments WHITE BLOOD CELL COUNT (BEAKER) 12.9 K/ L 3.5-10.5 H (test code = 775) RED BLOOD CELL COUNT (BEAKER) 3.86 M/ L 4.63-6.08 L (test code = 761) HEMOGLOBIN (BEAKER) (test code = 11.8 GM/DL 13.7-17.5 L 410) HEMATOCRIT (BEAKER) (test code = 35.2 % 40.1-51.0 L 411) MEAN CORPUSCULAR VOLUME (BEAKER) 91.2 fL 79.0-92.2 (test code = 753) MEAN CORPUSCULAR HEMOGLOBIN 30.6 pg 25.7-32.2 (BEAKER) (test code = 751) MEAN CORPUSCULAR HEMOGLOBIN CONC 33.5 GM/DL 32.3-36.5 (BEAKER) (test code = 752) RED CELL DISTRIBUTION WIDTH 13.2 % 11.6-14.4 (BEAKER) (test code = 412) PLATELET COUNT (BEAKER) (test 173 K/CU MM 150-450 code = 756) MEAN PLATELET VOLUME (BEAKER) 10.6 fL 9.4-12.4 (test code = 754) NUCLEATED RED BLOOD CELLS 0 /100 WBC 0-0 (BEAKER) (test code = 413) NEUTROPHILS RELATIVE PERCENT 84 % (BEAKER) (test code = 429) LYMPHOCYTES RELATIVE PERCENT 9 % (BEAKER) (test code = 430) MONOCYTES RELATIVE PERCENT 6 % (BEAKER) (test code = 431) EOSINOPHILS RELATIVE PERCENT 1 % (BEAKER) (test code = 432) BASOPHILS RELATIVE PERCENT 0 % (BEAKER) (test code = 437) NEUTROPHILS ABSOLUTE COUNT 10.82 K/ L 1.78-5.38 H (BEAKER) (test code = 670) LYMPHOCYTES ABSOLUTE COUNT 1.16 K/ L 1.32-3.57 L (BEAKER) (test code = 414) MONOCYTES ABSOLUTE COUNT (BEAKER) 0.76 K/ L 0.30-0.82 (test code = 415) EOSINOPHILS ABSOLUTE COUNT 0.07 K/ L 0.04-0.54 (BEAKER) (test code = 416) BASOPHILS ABSOLUTE COUNT (BEAKER) 0.04 K/ L 0.01-0.08 (test code = 417) IMMATURE GRANULOCYTES-RELATIVE 0 % 0-1 PERCENT (BEAKER) (test code = 2801) BLOOD GAS, [id number] 03:16:00 Test Item Value Reference Range Interpretation Comments PH VENOUS (BEAKER) (test code = 7.38 7.32-7.42 701) PCO2 VENOUS (BEAKER) (test code = 50 mm Hg 41-51 755) PO2 VENOUS (BEAKER) (test code = 61 mm Hg 25-40 H 702) O2 SATURATION VENOUS (BEAKER) 90.9 % 40.0-70.0 H (test code = 703) HCO3 VENOUS (BEAKER) (test code = 29 mmol/L 21-29 705) BASE EXCESS VENOUS (BEAKER) (test 2.6 mmol/L -2.0-3.0 code = 704) PATIENT TEMPERATURE (BEAKER) (test 36.7 code = 1818) FIO2 (BEAKER) (test code = 1819) 40.0 RAD, CHEST, 1 VIEW, NON [id number] 14:46:00Reason for exam:->R/O aspiration PNAShould this be performed at the bedside?->Yes [facility] 1990 Sex: MFINAL REPORT HISTORY: Aspiration pneumonia COMPARISON: 09/13/2018 FINDINGS: Mild airspace consolidation in the right perihilar region and left lung base concerning for pneumonia. No pleural effusions or pneumothorax. Heart shadow normal in size. Endotracheal tube tip is 4cm proximal to the raghav. Nasogastric tube passes below the diaphragm, with the tip not imaged. Signed: Amparo Morrell MDReport Verified Date/Time: 06/07/2021 14:46:28 Reading Location: [address] Transitional Reading Room EEG W VID 12-26 HR CONTINUOUS MONITORING (VEEG) 2021-06-07 13:01:00Reason for exam:->status epilepticus [facility] : 1990 Sex: MSEBAS [facility] L[facility] EEG Report NAME: Maryanne Zavala DATE OF EE06/06/21-06/07/21 DATE OF REPORT: 06/07/21 EE ACC: [id number] Start time: 9:41 PM on 06/06/21 Stop time: 10:02 AM on 06/07/21 ICD-10: R56.9 CPT Code: 43730 HISTORY: 31-year-old man with history of epilepsy, anxiety and depression, who was admitted for status epilepticus. MEDICATIONS THAT COULD AFFECTEEG: Propofol, Levetiracetam. TECHNICAL SUMMARY: This is a [employer] digital Video-EEG recorded with 32 input channels reviewed with bipolar and referential montages using the modified combinatorial system nomenclature. DESCRIPTION OF RECORD: During the maximal alertness, no posterior dominant rhythm was present. The background was disorganized and consisted of continuous low voltage general ized polymorphic delta with super imposed diffuse moderate-voltage beta activity. The background wasnot reactive to external stimuli. No organized sleep structures were seen. VIDEO EVENTS: No seizures or other events were seen. HYPERVENLITATION: not done. PHOTIC STIMULATION: not done. ECG FINDINGS: Normal sinus rhythm. IMPRESSION: Abnormal Video EEG due to: - diffuse background slowing and disorganization, delta range with excessive beta, non- reactive CLINICAL CORRELATION: Thesefindings are indicative of severe diffuse cerebral dysfunction/encephalopathy, which is nonspecific in etiology. Excessive beta can be due to medication effects (ex, benzodiazepine). There were no elect rographic seizures or epileptiform discharges. Above findings were communicated with NeuroICU team at 9 AM on 06/07/21. Jamshid Campbell Neurophysiology Fellow I certify that I have personally reviewed the entire EEG with the fellow, edited the report and agree with the findings. Angella Muller., Ph.D. Epilepsy/Neurophysiology Attending [id number] 11:44:00 Test Item Value Reference Range Interpretation Comments PROCALCITONIN (BEAKER) (test code = < ng/mL <0.05 3036) SEPSIS RISK (ng/mL)Low: 0.05-0.50Intermediate: 0.51-2.00High: >=2.01HIGH SENSITIVITY TROPONIN [id number] 11:38:00 Test Item Value Reference Range Interpretation Comments HIGH SENSITIVITY < pg/ml See_Comment [Automated message] TROPONIN I (test code = The system which [id number]) generated this result transmitted ref erence range: <=35. Th e reference range was not used to interpr et this result as normal/abnormal . Industrial Cook ID - DIEGO [facility] [address] [employer] MANAGER STAT High Sensitivity Troponin-I results should be used in conjunction with other diagnostic information such as ECG, clinical observations and information, and patient symptoms to aid in the diagnosis of [place].[id number] 11:23:00 Test Item Value Reference Range Interpretation Comments MAGNESIUM (BEAKER) (test code = 1.9 mg/dL 1.6-2.6 627) Industrial Cook ID - DIEGO MPHENYTOIN LEVEL, [id number] 05:21:00 Test Item Value Reference Range Interpretation Comments PHENYTOIN (DILANTIN) (BEAKER) 15.6 ug/mL 10.0-20.0 (test code = 605) Industrial Cook ID - DIEGO MCOMPREHENSIVE METABOLIC [id number] 04:26:00 Test Item Value Reference Range Interpretation Comments TOTAL PROTEIN 6.1 gm/dL 6.0-8.3 (BEAKER) (test code = 770) ALBUMIN (BEAKER) 3.5 g/dL 3.5-5.0 (test code = 1145) ALKALINE PHOSPHATASE 82 U/L 40-150 (BEAKER) (test code = 346) BILIRUBIN TOTAL 0.3 mg/dL 0.2-1.2 (BEAKER) (test code = 377) SODIUM (BEAKER) (test 140 meq/L 136-145 code = 381) POTASSIUM (BEAKER) 3.9 meq/L 3.5-5.1 (test code = 379) CHLORIDE (BEAKER) 107 meq/L 98-107 (test code = 382) CO2 (BEAKER) (test 23 meq/L 22-29 code = 355) BLOOD UREA NITROGEN 6 mg/dL 7-21 L (BEAKER) (test code = 354) CREATININE (BEAKER) 0.78 mg/dL 0.57-1.25 (test code = 358) GLUCOSE RANDOM 105 mg/dL 70-105 (BEAKER) (test code = 652) CALCIUM (BEAKER) 8.1 mg/dL 8.4-10.2 L (test code = 697) AST (SGOT) (BEAKER) 18 U/L 5-34 (test code = 353) ALT (SGPT) (BEAKER) 19 U/L 6-55 (test code = 347) EGFR (BEAKER) (test 115 ESTIMATE D GFR IS code = 1092) mL/min/1.73 sq NOT ACCURA TE m CREATININE CLEARANCE IN PREDICTING GLOMERULAR FILTRATION RATE . ESTIMATED GFR I S NOT APPLICABLE FOR DIALYSIS PATIEN TS. Industrial Cook ID - DIEGO MCBC W/PLT COUNT & AUTO [id number] 04:03:00 Test Item Value Reference Range Interpretation Comments WHITE BLOOD CELL COUNT (BEAKER) 7.2 K/ L 3.5-10.5 (test code = 775) RED BLOOD CELL COUNT (BEAKER) 4.09 M/ L 4.63-6.08 L (test code = 761) HEMOGLOBIN (BEAKER) (test code = 12.2 GM/DL 13.7-17.5 L 410) HEMATOCRIT (BEAKER) (test code = 37.7 % 40.1-51.0 L 411) MEAN CORPUSCULAR VOLUME (BEAKER) 92.2 fL 79.0-92.2 (test code = 753) MEAN CORPUSCULAR HEMOGLOBIN 29.8 pg 25.7-32.2 (BEAKER) (test code = 751) MEAN CORPUSCULAR HEMOGLOBIN CONC 32.4 GM/DL 32.3-36.5 (BEAKER) (test code = 752) RED CELL DISTRIBUTION WIDTH 13.6 % 11.6-14.4 (BEAKER) (test code = 412) PLATELET COUNT (BEAKER) (test 197 K/CU MM 150-450 code = 756) MEAN PLATELET VOLUME (BEAKER) 10.5 fL 9.4-12.4 (test code = 754) NUCLEATED RED BLOOD CELLS 0 /100 WBC 0-0 (BEAKER) (test code = 413) NEUTROPHILS RELATIVE PERCENT 72 % (BEAKER) (test code = 429) LYMPHOCYTES RELATIVE PERCENT 19 % (BEAKER) (test code = 430) MONOCYTES RELATIVE PERCENT 7 % (BEAKER) (test code = 431) EOSINOPHILS RELATIVE PERCENT 1 % (BEAKER) (test code = 432) BASOPHILS RELATIVE PERCENT 0 % (BEAKER) (test code = 437) NEUTROPHILS ABSOLUTE COUNT 5.18 K/ L 1.78-5.38 (BEAKER) (test code = 670) LYMPHOCYTES ABSOLUTE COUNT 1.39 K/ L 1.32-3.57 (BEAKER) (test code = 414) MONOCYTES ABSOLUTE COUNT (BEAKER) 0.51 K/ L 0.30-0.82 (test code = 415) EOSINOPHILS ABSOLUTE COUNT 0.05 K/ L 0.04-0.54 (BEAKER) (test code = 416) BASOPHILS ABSOLUTE COUNT (BEAKER) 0.03 K/ L 0.01-0.08 (test code = 417) IMMATURE GRANULOCYTES-RELATIVE 0 % 0-1 PERCENT (BEAKER) (test code = 2801) BLOOD GAS, [id number] 03:46:00 Test Item Value Reference Range Interpretation Comments PH ARTERIAL (BEAKER) (test code = 7.44 7.35-7.45 383) PCO2 ARTERIAL (BEAKER) (test code 39 mm Hg 35-45 = 384) PO2 ARTERIAL (BEAKER) (test code = 196 mm Hg 80-90 H 385) O2 SATURATION ARTERIAL (BEAKER) 99.4 % 96.0-97.0 H (test code = 386) HCO3 ARTERIAL (BEAKER) (test code 26 mmol/L 21-29 = 388) BASE EXCESS ARTERIAL (BEAKER) 2.1 mmol/L -2.0-3.0 (test code = 387) PATIENT TEMPERATURE (BEAKER) (test 36.7 code = 1818) FIO2 (BEAKER) (test code = 1819) 50.0 EEG W VID 12-26 HR CONTINUOUS MONITORING (VEEG)2020-09-30 13:05:00 [facility]ARYANNE [facility]A : 1990 [facility] REPORT DATE OF STUDY: 09/30/2020DATE OF REPORT: 0ACC: [id number]: [id number] time: 09/29/2020 @ 12:59Stop time: 09/30/2020 @ 12:59ICD-10: R56.9CPT Code: 72118 HISTORY: seizure disorder MEDICATIONS THAT COULD AFFECT EEG: phenytoin, lamotrigine, topiramate TECHNICAL SUMMARY: This is a digital video-EEG recorded with 32 input channels reviewed withbipolar and referential montages using the modified combinatorial [...] was characterized by alpha attenuation and increased frontocentraltheta, vertex sharp transients and POSTS. Stage 2 sleep was reached characterized by symmetric sleep spindles and K- complexes. REM sleep was noted also. HV: Hyperventilation was not performed. PHOTIC STIMULATION: Photic stimulation was not done. IMPRESSION: Normal Awake/Sleep video EEG CLINICAL CORRELATION: An EEG without epileptiform discharges does not exclude the possibility of epilepsy. Itthe clinical suspicion of epilepsy remains, consider additional EEG recordings. Joao Blum M.D., FACNSProfessor of NeurologyVictor Valley HospitalDirector, [facility] Epilepsy [facility] DaughtersTurnernorth [facility] Neurophysiology Lab BASIC METABOLIC [id number] 07:16:00 Test Item Value Reference Range Interpretation [...] S NOT APPLICABLE FOR DIALYSIS PATIEN TS. Industrial Cook ID - [id number] 07:16:00 Test Item Value Reference Range Interpretation Comments MAGNESIUM (BEAKER) (test code = 2.1 mg/dL 1.6-2.6 627) [employer] Cook ID - EDASICBC W/PLT COUNT & AUTO [id number] 06:35:00 Test Item Value Reference Range Interpretation [...] CONTINUOUS MONITORING (VEEG)2020-09-29 14:32:00Reason for exam:->Seizures capturing [facility] CENTERName: MARYANNE ZAVALA : 1990 [facility]: [facility] REPORT Name: Maryanne Zavala ACC: [id number] EE DATE OF TEST: 09/28/20 - 09/29/20 DATE OF REPORT: 09/29/20 Start time/date: 11:46 AM 09/28/20 Stop time/date: 12:59 PM 09/29/20 ICD-10: R56.9 CPT Code: 30816 HISTORY: 30 y/o M s/p seizures x2. [...] No seizures or epileptiform discharges were seen. Ang Cintron M.D., Ph.D. Neurophysiology/Epilepsy Attending BASIC METABOLIC [id number] 07:17:00 Test Item Value Reference Range Interpretation [...] S NOT APPLICABLE FOR DIALYSIS PATIEN TS. [employer] ID - [id number] 07:17:00 Test Item Value Reference Range Interpretation Comments MAGNESIUM (BEAKER) (test code = 1.9 mg/dL 1.6-2.6 627) [employer] Cook ID - EDASICBC W/PLT COUNT & AUTO [id number] 06:25:00 Test Item Value Reference Range Interpretation [...] 0-1 PERCENT (BEAKER) (test code = 2801) SARS-COV2/RT-PCR ([facility])2020-09-28 17:19:00 Test Item Value Reference Range Interpretation Comments SARS-COV2/RT-PCR (test Negative Not Detected, Negative, code = 4467513) See external report for linked test SARS-COV-2 PERFORMING LAB [facility] (test code = 7578627) Negative result for this test determines that [...] 564(g) of the Act.Fact Sheet for Healthcare Providers:https://www.[employer]k/sites/default/files/product/documents/Fact_Shee a_WK_Helpbqvmb_Gozz_KOKS-NvF-2.pdfFact Sheet for Healthcare Patients:https://www.[employer]/sites/default/files/product/ documents/Czea_Phrrq_Xjybpuhq_Jnub_RAXD-IjI-6.pdfPerforming Laboratory:[facility].[place], [place] [address]NYCNV DRUG SCREEN, [id number] 16:44:00 Test Item Value Reference Range Interpretation [...] situations. Chain of custody not maintained. Some epcx-qet-pzxjbbe medications, as well as adulterants, may cause inaccurate results. Clinical correlation should be applied. A more comprehensivedrug screen or confirmation of a detected drug may be performed upon request.Industrial Cook ID - MAYRA WHITTD, HAND, 2 VIEWS, [id number] 14:06:00Reason for exam:->swelling and pain [facility] 1990 Sex: MFINAL REPORT [...] Date/Time: 09/28/2020 14:06:34 RAD, WRIST, 2 VIEWS, [id number] 14:06:00Reason for exam:->Swelling and pain [facility] : 1990 Sex: MFINAL REPORT RAD, HAND, 2 VIEWS, LEFT, RAD, WRIST, 2 VIEWS, LEFT CLINICAL INDICATION: swelling and pain TECHNIQUE: Two views of the left hand, two views of the left wrist COMPARISON: None FINDINGS: No fracture or dislocation. Joint spaces are normal. No focal soft tissue abnormality. IMPRESSION:No evidence of acute osseous injury. Signed: Kendrick Camejoeport Verified Date/Time: 09/28/2020 14:06:34 BASIC METABOLIC [id number] 05:25:00 Test Item Value Reference Range Interpretation [...] S NOT APPLICABLE FOR DIALYSIS PATIEN TS. Industrial Cook ID - ADMINHEPATIC FUNCTION [id number] 05:25:00 Test Item Value Reference Range Interpretation [...] (test code = 33 U/L 6-55 347) Industrial Cook ID - ADMINCBC W/PLT COUNT & AUTO [id number] 04:39:00 Test Item Value Reference Range Interpretation [...] PERCENT (BEAKER) (test code = 2801) BLOOD [id number] 18:00:00 Test Item Value Reference Range Interpretation Comments CULTURE (BEAKER) (test No growth in 5 days code = 1095) BLOOD [id number] 18:00:00 Test Item Value Reference Range Interpretation Comments CULTURE (BEAKER) (test No growth in 5 days code = 1095) SPUTUM CULTURE + GRAM [id number] 14:21:00 Test Item Value Reference Range Interpretation Comments CULTURE (BEAKER) 4+ Normal respiratory (test code = 1095) beatrice present GRAM STAIN RESULT 1+ gram positive rods (BEAKER) (test code = 1123) GRAM STAIN RESULT 1+ gram negative cocci (BEAKER) (test code = 60704) GRAM STAIN RESULT 2+ gram positive cocci (BEAKER) (test code = in chains 96397) GRAM STAIN RESULT 1+ gram positive cocci (BEAKER) (test code = in clusters 261670) RAD, CHEST, 1 VIEW, NON [id number] 07:27:00Reason for exam:->post intubationShould this be performed [...] lytic or blastic abnormalities are appreciated. Signed: Sarna, Achal MDReport Verified Date/Time: 09/13/2018 07:27:51 [facility] PHOSPHORUS 2018-09-13 04:44:00 Test Item Value Reference Range Interpretation Comments PHOSPHORUS (BEAKER) (test code = 2.9 mg/dL 2.3-4.7 604) Check Serum Phosphorus level 4 hours after IV phosphorus replacement or 8 hours after PO replacementcompleted.[id number] 04:44:00 Test Item Value Reference Range Interpretation Comments MAGNESIUM (BEAKER) (test code = 2.2 mg/dL 1.6-2.6 627) Check Serum Phosphorus level 4 hours after IV phosphorus replacement or 8 hours after PO replacementcompleted.BASIC METABOLIC [id number] 04:44:00 Test Item Value Reference Range Interpretation [...] after PO replacementcompleted.CBC W/PLT COUNT & AUTO [id number] 04:19:00 Test Item Value Reference Range Interpretation [...] 0-1 PERCENT (BEAKER) (test code = 2801) [id number] 18:41:00 Test Item Value Reference Range Interpretation Comments POTASSIUM (BEAKER) (test code = 3.9 meq/L 3.5-5.1 379) Check Serum Potassium level 2 hours after oral potassium replacement completed or 30 min after intravenous potassium replacement.[id number] 18:41:00 Test Item Value Reference Range Interpretation Comments MAGNESIUM (BEAKER) (test code = 2.9 mg/dL 1.6-2.6 H 627) Check Serum Potassium level 2 hours after oral potassium replacement completed or 30 min after intravenous potassium replacement.EEG MONITORING WITH VIDEO RECORDING EACH 24 [id number] 14:34:00billing for 09/12 AMDATE OF REPORT: 09/12/2018 ACC: [id number] EE Start time: 09/11 at 0920 AM Stop time: 09/12 at 11:11 AM ICD-10: R56.9 CPT Code: 72245 HISTORY: 28 year old male p/w increased [...] electrographic seizures. Rosalio Trujillo MD Neurophysiology Fellow Ang Cintron MD, PhD Attending Neurophysiologist [facility] [id number] 12:15:00 Test Item Value Reference Range Interpretation Comments MAGNESIUM (BEAKER) (test code = 1.9 mg/dL 1.6-2.6 627) Check Serum Phosphorus level 4 hours after IV phosphorus replacement or 8 hours after PO replacementcompleted.Check Serum Potassium level 2 hours after oral potassium replacement completed or 30 min after intravenous potassium replacement.[id number] 12:15:00 Test Item Value Reference Range Interpretation Comments PHOSPHORUS (BEAKER) (test code = 2.0 mg/dL 2.3-4.7 L 604) Check Serum Phosphorus level 4 hours after IV phosphorus replacement or 8 hours after PO replacementcompleted.Check Serum Potassium level 2 hours after oral potassium replacement completed or 30 min after intravenous potassium replacement.[id number] 12:14:00 Test Item Value Reference Range Interpretation Comments POTASSIUM (BEAKER) (test code = 3.6 meq/L 3.5-5.1 379) Check Serum Phosphorus level 4 hours after IV phosphorus replacement or 8 hours after PO replacementcompleted.Check Serum Potassium level 2 hours after oral potassium replacement completed or 30 min after intravenous potassium replacement.CALCIUM, [id number] 11:49:00 Test Item Value Reference Range Interpretation Comments CALCIUM IONIZED (BEAKER) (test 1.09 mmol/L 1.12-1.27 L code = 698) PH, BLOOD (BEAKER) (test code = 7.46 1810) Check serum Ionized Calcium level after 4 hours after IV Calcium replacement. URINE [id number] 08:18:00 Test Item Value Reference Range Interpretation Comments CULTURE (BEAKER) (test code = 1095) No growth [id number] 03:59:00 Test Item Value Reference Range Interpretation Comments PHOSPHORUS (BEAKER) (test code = 2.5 mg/dL 2.3-4.7 604) Check Serum Phosphorus level 4 hours after IV phosphorus replacement or 8 hours after PO replacementcompleted.[id number] 03:59:00 Test Item Value Reference Range Interpretation Comments MAGNESIUM (BEAKER) (test code = 2.1 mg/dL 1.6-2.6 627) Check Serum Phosphorus level 4 hours after IV phosphorus replacement or 8 hours after PO replacementcompleted.BASIC METABOLIC [id number] 03:59:00 Test Item Value Reference Range Interpretation [...] after PO replacementcompleted.CBC W/PLT COUNT & AUTO [id number] 03:41:00 Test Item Value Reference Range Interpretation [...] PERCENT (BEAKER) (test code = 2801) POCT-GLUCOSE [id number] 23:55:00 Test Item Value Reference Range Interpretation Comments POC-GLUCOSE METER 94 mg/dL 70-[address] [facility] 67[address] (BEAKER) (test code = [place] [address] 1538) [id number] 18:08:00 Test Item Value Reference Range Interpretation Comments POTASSIUM (BEAKER) (test code = 3.4 meq/L 3.5-5.1 L 379) Check Serum Potassium level 2 hours after oral potassium replacement completed or 30 min after intravenous potassium replacement.EEG MONITORING WITH VIDEO RECORDING EACH 24 [id number] 09:23:00DATE OF REPORT: 09/11/2018ACC: [id number]: Start time: 09/10 at 15:05Stop time: 09/11 at 09:20 AMICD- 10: R56.9CPT Code: 87939 HISTORY: 28 yo male with h/o seizures [...] MDNeurophysiology Fellow Joao Blum M.D., FACNSProfessor of NeurologyVictor Valley HospitalDirector, [facility] Epilepsy [facility] Neurophysiology Lab RAD, CHEST, 1 VIEW, [...] MDReport Verified Date/Time: 09/11/2018 07:32:46 Reading Location: [place] [id number] Neuro Reading Room POCT-GLUCOSE [id number] 06:30:00 Test Item Value Reference Range Interpretation Comments POC-GLUCOSE METER 111 mg/dL 70-[address] [facility] 67[address] (BEAKER) (test code = [place] 1538) [address] BASIC METABOLIC [id number] 06:06:00 Test Item Value Reference Range Interpretation [...] PATIEN TS. CBC W/PLT COUNT & AUTO [id number] 03:47:00 Test Item Value Reference Range Interpretation [...] (BEAKER) (test code = 2801) BLOOD GAS, [id number] 03:32:00 Test Item Value Reference Range Interpretation [...] -2.0-3.0 (test code = 387) PATIENT TEMPERATURE ([facility]) 37.0 C (test code = 1818) FIO2 ([facility]) (test code = 1819) 40.0 % POCT-GLUCOSE [id number] 01:01:00 Test Item Value Reference Range Interpretation Comments POC-GLUCOSE METER 91 mg/dL 70-[address] [facility] [address] ([facility]) (test code = [place] Gutiérrez [facility] [address] 1538) TROPONIN [id number] 17:18:00 Test Item Value Reference Range Interpretation Comments TROPONIN I ([facility]) (test code = 397) < ng/mL 0.00-0.03 [...] neurological disease, and persistent tachyarrhythmia.EEG AWAKE AND [id number] 15:50:00 Reason for exam:->Status epilepticus, c EEG for evaluation of subclinical seizures Should this beperformed at the bedside?->YesDATE OF REPORT: 09/10/2018ACC: [id number]: [id number] time: 14:47Stop time: 15:04ICD-10: R56.9CPTCode: 35826 HISTORY: 28 yo male with h/o seizures [...] MDNeurophysiology Fellow Joao Blum M.D., FACNSProfessor of NeurologyVictor Valley HospitalDirector, [facility] Epilepsy [place] BLOOD GAS, [id number] 12:32:00 Test Item Value Reference Range Interpretation [...] 1819) 40.0 % RAD, ABDOMEN/KUB, 1 VIEW [id number] 12:12:00Reason for exam:->corpakShould this be performed at the bedside?->YesFINAL REPORT AP abdomen, three images HISTORY: Feeding tube COMPARISON: 11/01/2015 IMPRESSION:Feeding tube present with tip in abdomen. Bowel gas pattern appears grossly nonobstructive. Signed: Edgardo Guzman MDReport Verified Date/Time: 09/10/2018 12:12:56 Reading Location: [address] Consult Reading Room , CHEST, 1 VIEW, NON [id number] 10:40:00Reason for exam:->post intubationShould this be performed at the bedside?->YesFINAL REPORT AP chest HISTORY: Intubation COMPARISON: None IMPRESSION:Endotrac heal tube in satisfactory position. Right IJ central venous catheter at mid SVC. Heart size normal. Mild perihilar atelectasis. Lungs otherwise clear. No pneumothorax. Signed: Edgardo Guzman MDReport Verified Date/Time: 09/10/2018 10:40:47 Reading Location: [facility] [id number] Ortho Consult Reading Room El ectronically signed by: EDGARDO GUZMAN M.D. on 09/10/2018 10:40 AM TROPONIN [id number] 09:21:00 Test Item Value Reference Range Interpretation [...] failure, acidosis, acute neurological disease, and persistent tachyarrhythmia.[id number] 09:19:00 Test Item Value Reference Range Interpretation Comments CARBAMAZEPINE LEVEL (BEAKER) (test 2.2 ug/mL 4.0-12.0 L code = 696) PHENYTOIN LEVEL, [id number] 09:18:00 Test Item Value Reference Range Interpretation Comments PHENYTOIN (DILANTIN) (BEAKER) 10.8 ug/mL 10.0-20.0 (test code = 605) [id number] 09:03:00 Test Item Value Reference Range Interpretation Comments PARTIAL THROMBOPLASTIN TIME 27.5 seconds 22.5-36.0 (BEAKER) (test code = 760) PROTHROMBIN [id number] 09:02:00 Test Item Value Reference Range Interpretation Comments PROTIME (BEAKER) (test code = 14.6 seconds 11.7-14.7 759) INR (BEAKER) (test code = 370) 1.1 <=5.9 RECOMMENDED COUMADIN/WARFARIN INR THERAPY RANGESSTANDARD DOSE: 2.0 - 3.0 Includes: PROPHYLAXIS forvenous thrombosis, systemic embolization; TREATMENT for venous thrombosis and/or pulmonary embolus.HIGH RISK: Target INR is 2.5-3.5 for patients with mechanical heart valves.PLATELET [id number] 08:53:00 Test Item Value Reference Range Interpretation Comments PLATELET COUNT (BEAKER) (test 184 K/CU MM 150-450 code = 756) BASIC METABOLIC [id number] 07:07:00 Test Item Value Reference Range Interpretation [...] 29-200 H code = 380) BASIC METABOLIC [id number] 05:19:00 Test Item Value Reference Range Interpretation [...] U/L 29-200 H code = 380) POCT-GLUCOSE [id number] 17:02:00 Test Item Value Reference Range Interpretation Comments POC-GLUCOSE METER 93 mg/dL 70-[address] [facility] [address] (BEAKER) (test code = [place] [address] 1538) [id number] 04:54:00 Test Item Value Reference Range Interpretation Comments MAGNESIUM (BEAKER) (test code = 2.1 mg/dL 1.6-2.6 627) BASIC METABOLIC [id number] 04:54:00 Test Item Value Reference Range Interpretation [...] H code = 380) EEG AWAKE AND [id number] 16:50:00Reason for exam:->seizure disorder Neurophysiology Electroencephalogram Report DATE OF REPORT: 08/10/18Date(s) of Study: 08/10/2018ACC: [id number]: 18Start time: 1517 hrsStop time: 1537 hrsICD-10: R56.9 Unspecified ConvulsionsCPT Code: 87868 EEG: awake and drowsy <40 min HISTORY: [...] [facility] Neuro[facility]iology Service URINALYSIS W/ [id number] 05:20:00 Test Item Value Reference Range Interpretation [...] 0 /HPF SOURCE(BEAKER) (test code = 2795) [id number] 03:17:00 Test Item Value Reference Range Interpretation Comments CARBAMAZEPINE LEVEL (BEAKER) (test < ug/mL 4.0-12.0 L code = 696) [id number] 02:33:00 Test Item Value Reference Range Interpretation Comments PHOSPHORUS (BEAKER) (test code = 2.8 mg/dL 2.3-4.7 604) [id number] 02:33:00 Test Item Value Reference Range Interpretation Comments MAGNESIUM (BEAKER) (test code = 2.2 mg/dL 1.6-2.6 627) BASIC METABOLIC [id number] 02:33:00 Test Item Value Reference Range Interpretation [...] APPLICABLE FOR DIALYSIS PATIEN TS. HEPATIC FUNCTION [id number] 02:33:00 Test Item Value Reference Range Interpretation [...] U/L 29-200 H code = 380) C-REACTIVE [id number] 02:33:00 Test Item Value Reference Range Interpretation Comments C-REACTIVE PROTEIN (BEAKER) (test 0.45 mg/dL 0.00-0.50 code = 676) LACTIC ACID, VENOUS, WHOLE [id number] 02:26:00 Test Item Value Reference Range Interpretation Comments LACTATE BLOOD VENOUS 1.0 mmol/L 0.5-2.2 Specime n slightly (2) (BEAKER) (test hemolyzed code = 2872) Effective 03/18/2016: Units/Reference Range ChangeNew: 0.5-2.2 mmol/L Previous: 5-20 mg/dLCBC W/PLT COUNT & AUTO [id number] 02:05:00 Test Item Value Reference Range Interpretation [...] (BEAKER) (test code = 2801) POCT-BLOOD GASES, [id number] 01:50:00 Test Item Value Reference Range Interpretation Comments TEMP, CELSIUS-POC 37.0 (BEAKER) (test code = 1834) FIO2-POC (BEAKER) TESTED AT [place] [address] (test code = 1835) [facility] [place] [address] PH, ARTERIAL-POC 7.396 7.350-7.450 (BEAKER) (test code [...] L ARTERIAL-POC (BEAKER) (test code = 1841) [id number] 01:50:00 Test Item Value Reference Range Interpretation Comments POC-SODIUM (BEAKER) 140 meq/L 135-148 TESTED A T [place] [address] (test code = 1542) [place] [address] [id number] 01:50:00 Test Item Value Reference Range Interpretation Comments POC-POTASSIUM 3.4 meq/L 3.6-5.5 L TESTED AT [facility] 6720 (BEAKER) (test code [facility] [address] = 1540) [id number] 01:50:00 Test Item Value Reference Range Interpretation Comments POC-GLUCOSE (BEAKER) 105 mg/dL 70-110 TESTED AT [place] [address] (test code = 1855) ROLANDODAVID Rodgers [place] [address] POCT-CALCIUM [id number] 01:50:00 Test Item Value Reference Range Interpretation Comments POC-CALCIUM IONIZED 1.15 mmol/L 1.12-1.27 TESTED A T [place] [address] ([facility]) (test code = [address] Gutiérrez [facility] 1536) [address] [id number] 01:50:00 Test Item Value Reference Range Interpretation Comments POC-HEMATOCRIT 35 % 40-50 L TESTED AT [place] [address] ([facility]) (test code = [facility] [address] 1857) [id number] 01:50:00 Test Item Value Reference Range Interpretation Comments POC-HEMOGLOBIN 11.9 g/dL 13.0-16.8 L TESTED AT [place] [address] ([facility]) (test code [facility] = 1856) [address]S[place] AT [address] [address] POCT-LACTIC ACID, [id number] 01:49:00 Test Item Value Reference Range Interpretation Comments POC-LACTIC ACID, 0.9 mmol/L 0.4-1.3 TESTED AT [place] [address] ARTERIAL ([facility]) [facility] (test code = 2804) [address]
[2022-03-15] MEDS ORDERED: LORazepam 2 MG/ML VIAL ONE ×2 (18:18→19:39)
[2022-03-15] MEDS ORDERED: KETAMINE HCL 500 MG/5 ML VIAL ONE (18:31)
[2022-03-15] MEDS ORDERED: NA CHLORIDE 0.9% 100 ML IV ONE (18:48)
[2022-03-15] MEDS ORDERED: FOSPHENYTOIN PE 500 MG/10 ML VIAL ONE ×2 (18:48→19:47)
[2022-03-15 18:49] LABS: Protime INR 0.96
[2022-03-15 18:55] LABS: Absolute Lymphocytes (CBC) 4.3 K/uL (0.7-4.9); Hematocrit 48.6 % (39.6-49.0); Lymphocytes % 38.7 % (15.3-44.8); MPV 8.9 fL (7.6-11.3); RBC Red Blood Cell Count 5.41 M/uL (4.33-5.43)
[2022-03-15 19:06] LABS: ALT/SGPT 36 U/L (12-78); AST/SGOT 24 U/L (15-37); Albumin 4.3 g/dL (3.4-5.0); Alkaline Phosphatase 127 U/L (45-117); BUN Blood Urea Nitrogen 9 mg/dL (7-18); Bicarbonate 24 mmol/L (21-32); Bilirubin Direct 0.1 mg/dL (0-0.2); Bilirubin Total 0.4 mg/dL (0.2-1.0); Glucose Level 92 mg/dL (74-106); Protein, Total 8.4 g/dL (6.4-8.2); Sodium Level 139 mmol/L (136-145)
[2022-03-15] MEDS ORDERED: NA CHLORIDE 0.9% 0 ML ONE (19:23)
[2022-03-15] MEDS ORDERED: RSI MEDICATION KIT IV ONE (19:23)
[2022-03-15] MEDS ORDERED: propofoL 1,000 MG/100 ML VIAL IV ONE (19:24)
[2022-03-15] MEDS ORDERED: LEVETIRACETAM 500 MG/5 ML VIAL IV ONE (19:46)
[2022-03-15] MEDS ORDERED: NA CHLORIDE 0.9% 200 ML IV ONE (19:46)
--- NOTE | 2022-03-15 20:11 | EDPHYS ---
Physician Documentation [facility] Name: Alfie Zavala Age: 32 yrs Sex: Male : 1990 Arrival Date: 03/15/2022 Time: 17:58 Bed 2 Private MD: Lanette Buckner H ED Physician Blue Rodriguez HPI: 03/15 18:31 This 32 yrs old Male presents to ER via Ambulatory with complaints of Probable jmm Seizure. 18:31 The patient presents with a history of multiple seizures. Character of seizure(s): jmm Motor activity: generalized. Seizure onset: just prior to arrival. Patient presents to the ED with seizure. Takes lamictal and phenytoin. has had similar episodes in the past. has needed intuabation in the past. . Historical: - Allergies: 18:10 No Known Allergies; aa5 - Home Meds: 18:10 venlataxine 150mg BID [Active]; diazepam 10mg PRN [Active]; Lamotrigine 200mg BID aa5 [Active]; Gabapentin 300mg TID [Active]; Phenytoin 100mg TID [Active]; Topiramate 50mg BID [Active]; - PMHx: 18:10 Depression; Headaches; Seizures; status epilepticus; aa5 - Immunization history:: Adult Immunizations unknown. - Social history:: Smoking status: Patient denies any tobacco usage or history of. Patient uses street drugs, marijuana. ROS: 18:31 Constitutional: Negative for fever, chills, and weight loss, Cardiovascular: Negative jm for chest pain, palpitations, and edema, Respiratory: Negative for shortness of breath, cough, wheezing, and pleuritic chest pain. 18:31 Neuro: Positive for seizure activity. 18:31 All other systems are negative. Exam: 18:31 Constitutional: This is a well developed, well nourished patient who is awake, alert, jmm and in no acute distress. Cardiovascular: Regular rate and rhythm. No edema appreciated Respiratory: Normal respirations, no respiratory distress appreciated 18:31 Head/Face: atraumatic. Eyes: EOMI, no conjunctival erythema appreciated ENT: Moist Mucus Membranes Neck: Trachea midline, Supple Chest/axilla: Normal chest wall appearance and motion. 18:31 Back: Normal ROM Skin: General appearance color normal MS/ Extremity: Moves all extremities, no obvious deformities appreciated, no edema noted to the lower extremities 18:31 Cardiovascular: Rate: tachycardic, Rhythm: regular. 18:31 Neuro: Orientation: is normal, seizure activity, grand mal type is displayed. 18:31 Psych: Behavior/mood is pleasant, cooperative. Vital Signs: 18:06 BP 118 / 88; Pulse 97; Resp 18 S; Temp 98.0(TE); Pulse Ox 99% on R/A; aa5 18:38 Weight 108 kg; ab2 19:14 BP 132 / 76; Pulse 114; Resp 29; Pulse Ox 100% on Non-rebreather mask; ab2 19:50 BP 123 / 89; Pulse 102; Resp 28 S; Pulse Ox 97% on 15% Non-rebreather mask; as6 21:15 BP 158 / 101; Pulse 113; Resp 30 S; Pulse Ox 97% on 15% Non-rebreather mask; as6 22:00 BP 94 / 58; Pulse 113; Resp 30 S; Pulse Ox 98% on 15% Non-rebreather mask; as6 Brooks Coma Score: 22:38 Eye Response: to voice(3). Verbal Response: oriented(5). Motor Response: obeys as6 commands(6). Total: 14. MDM: 18:31 Patient medically screened. [facility] 20: Data reviewed: vital signs, nurses notes. [facility] 20:09 Counseling: I had a detailed discussion with the patient and/or guardian regarding: the [facility] historical points, exam findings, and any diagnostic results supporting the discharge/admit diagnosis, the need to transfer to another facility. ED course: Dr. Rodriguez assumed care at shift change. Discussed the patient with [facility] whom accepted the patient. . 03/15 18:31 Order name: Acetaminophen; Complete Time: 19:25 [facility] 03/15 18:31 Order name: Basic Metabolic Panel; Complete Time: 19:25 [facility] 03/15 18:31 Order name: CBC with Diff; Complete Time: 19:25 [facility] 03/15 18:31 Order name: ETOH Level; Complete Time: 19:02 [facility] 03/15 18:31 Order name: Hepatic Function; Complete Time: 19:25 [facility] 03/15 18:31 Order name: PT-INR; Complete Time: 18:52 [facility] 03/15 18:31 Order name: Ptt, Activated; Complete Time: 18:52 [facility] 03/15 18:31 Order name: Salicylate; Complete Time: 19:25 [facility] 03/15 18:31 Order name: Urine Drug Screen; Complete Time: 21:31 [facility] 03/15 18:33 Order name: SARS-COV-2 RT PCR (Document "Date of Onset" if Symptomatic); Complete Time: [facility] 20:45 03/15 18:33 Order name: Phenytoin (dilantin); Complete Time: 19:02 [facility] 03/15 20:22 Order name: Head C Spine MPR Wo Con CT la1 03/15 21:04 Order name: Urine Dipstick-Ancillary; Complete Time: 21:13 [facility] 03/15 18:31 Order name: EKG; Complete Time: 18:32 [facility] 03/15 18:31 Order name: EKG - Nurse/Tech; Complete Time: 18:39 [facility] 03/15 18:31 Order name: IV Saline Lock; Complete Time: 18:33 [facility] 03/15 18:31 Order name: Labs collected and sent; Complete Time: 18:33 [facility] 03/15 18:31 Order name: Urine Dipstick-Ancillary (obtain specimen); Complete Time: 21:04 [facility] 03/15 19:31 Order name: Seizure Precautions; Complete Time: 19:32 dominik Administered Medications: 18:28 Drug: Ativan (LORazepam) 2 mg Route: IM; Site: left deltoid; ab2 22:33 Follow up: Response: No adverse reaction as6 18:31 Drug: Ketalar (ketamine) 1 mg/kg Route: IVP; Site: left wrist; ab2 22:33 Follow up: Response: No adverse reaction as6 18:49 Drug: Fosphenytoin 1 grams Route: IVPB; Site: right antecubital; ab2 22:33 Follow up: Response: No adverse reaction; IV Status: Completed infusion; IV Intake: as6 100ml 19:37 Drug: Ativan (LORazepam) 2 mg Route: IVP; Site: right antecubital; as6 22:33 Follow up: Response: No adverse reaction as6 19:56 Drug: Keppra (levETIRAcetam) 1000 mg Route: IV; Rate: calculated rate; Site: right as6 antecubital; 22:33 Follow up: Response: No adverse reaction; IV Status: Completed infusion; IV Intake: as6 1000ml 19:56 Drug: Fosphenytoin 500 mg Route: IVPB; Site: left wrist; as6 22:34 Follow up: Response: No adverse reaction; IV Status: Completed infusion; IV Intake: as6 100ml Disposition Summary: 03/15/22 20:11 Transfer Ordered Transfer Location: Other Acute Care Facility jmm Reason: Higher level of care jmm Condition: Stable jmm Problem: an acute exacerbation jmm Symptoms: are unchanged jmm Accepting Physician: SEBAS Cooper(03/15/22 22:38) as6 Diagnosis - Epileptic seizures related to external causes jmm Forms: - Medication Reconciliation Form jmm - SBAR form jmm Signatures: Dispatcher [employer] EDBlue Cintron MD MD cha Mickail, Joel, PA PA jmm Vera Ross, RN RN aa5 Lennox Banuelos RN RN as6 Rolando Bahena2 Corrections: (The following items were deleted from the chart) 21:04 18:31 Suicide Screening ([place]) ordered. [facility] as6 22:38 20:11 SEBAS Cooper [facility] as6
--- NOTE | 2022-03-15 20:11 | ER ---
Nurse's Notes [facility] Name: Alfie Zavala Age: 32 yrs Sex: Male : 1990 Arrival Date: 03/15/2022 Time: 17:58 Bed 2 Private MD: Lanette Buckner H Diagnosis: Epileptic seizures related to external causes Presentation: 03/15 18:06 Chief complaint: Patient states: "I just had a seizure and my brother saw it". Pt aa5 states "right now I just feel weird and tired". Pt's brother states "I was in the kitchen when I heard a bid thump and he had fallen and was having a seizure". Reports hx of seizures. Pt reports he has been out of all his medication for approximately 1 week. 18:06 Coronavirus screen: At this time, the client does not indicate any symptoms associated aa5 with coronavirus-19. Ebola Screen: No symptoms or risks identified at this time. Initial Sepsis Screen: Does the patient meet any 2 criteria? No. Patient's initial sepsis screen is negative. Does the patient have a suspected source of infection? No. Patient's initial sepsis screen is negative. Risk Assessment: Do you want to hurt yourself or someone else? Patient reports no desire to harm self or others. Onset of symptoms was March 15, 2022. 18:06 Acuity: KEN 2 aa5 18:06 Method Of Arrival: Ambulatory aa5 Triage Assessment: 19:15 General: Appears. ab2 Historical: - Allergies: 18:10 No Known Allergies; aa5 - Home Meds: 18:10 venlataxine 150mg BID [Active]; diazepam 10mg PRN [Active]; Lamotrigine 200mg BID aa5 [Active]; Gabapentin 300mg TID [Active]; Phenytoin 100mg TID [Active]; Topiramate 50mg BID [Active]; - PMHx: 18:10 Depression; Headaches; Seizures; status epilepticus; aa5 - Immunization history:: Adult Immunizations unknown. - Social history:: Smoking status: Patient denies any tobacco usage or history of. Patient uses street drugs, marijuana. Screenin:15 Abuse screen: Denies threats or abuse. Denies injuries from another. Nutritional ab2 screening: No deficits noted. Tuberculosis screening: No symptoms or risk factors identified. Fall Risk Total Adams Fall Scale indicates High Risk Score (45 or more points). Assessment: 19:16 General: Appears uncomfortable, Behavior is cooperative, appropriate for age. Pain: ab2 Denies pain. Neuro: Seizure activity noted at this time. reported prior to arrival. Cardiovascular: Denies chest pain, shortness of breath, Heart tones S1 S2 present Patient's skin is warm and dry. Rhythm is sinus tachycardia. Respiratory: Airway is patent Respiratory effort is even, Respiratory pattern is regular, Breath sounds are clear bilaterally. GI: Abdomen is round non-distended, Bowel sounds present X 4 quads. : No deficits noted. No signs and/or symptoms were reported regarding the genitourinary system. EENT: No deficits noted. No signs and/or symptoms were reported regarding the EENT system. Derm: Skin is intact, Skin is clammy, Skin is pink, warm \\T\\ dry. 20:07 General: over course of hour pt has had 5 seizures . as6 20:20 General: RSI kit pulled, etomidate and succinylcholine drawn up, per MD intubated not as6 indicated at this time . Vital Signs: 18:06 BP 118 / 88; Pulse 97; Resp 18 S; Temp 98.0(TE); Pulse Ox 99% on R/A; aa5 18:38 Weight 108 kg; ab2 19:14 BP 132 / 76; Pulse 114; Resp 29; Pulse Ox 100% on Non-rebreather mask; ab2 19:50 BP 123 / 89; Pulse 102; Resp 28 S; Pulse Ox 97% on 15% Non-rebreather mask; as6 21:15 BP 158 / 101; Pulse 113; Resp 30 S; Pulse Ox 97% on 15% Non-rebreather mask; as6 22:00 BP 94 / 58; Pulse 113; Resp 30 S; Pulse Ox 98% on 15% Non-rebreather mask; as6 Nino Coma Score: 22:38 Eye Response: to voice(3). Verbal Response: oriented(5). Motor Response: obeys as6 commands(6). Total: 14. ED Course: 17:58 Patient arrived in ED. am2 17:58 Lanette Buckner DO is Private Physician. am2 18:06 Arm band placed on Patient placed in an exam room, on a stretcher. aa5 18:06 Seizure precautions initiated. aa5 18:17 Pedro Parrish PA is [facility]. [facility] 18:17 Juan Cyr MD is Attending Physician. [facility] 18:20 EKG done, by ED staff, reviewed by Juan Cyr MD. 3 18:26 Rolando Bahena is Primary Nurse. ab2 18:35 Accessed peripheral vein via ultrasound, utilizing dynamic ultrasound technique using jd3 18G Sureflo IV catheter Clean \\T\\ dry. Dressing intact. Good blood return. Flushes easily. 18 G right AC. 18:40 Triage completed. aa5 19:25 Attending Physician role handed off by Juan Cyr MD [facility] 19:25 Blue Rodriguez MD is Attending Physician. [facility] 22:05 Head C Spine MPR Wo Con CT In Process Unspecified. EDMS 22:15 \\[id number]\\[id number] CONTACTED [facility] TRANSFER SPOKE WITH [facility] \\T\\2009 DR TO \\T\\ 2013 APPROVAL \\T\\ kj1 2034 ADMIN APPROVAL 2054 SECURED TRANSPORT WITH [facility]. 22:37 No provider procedures requiring assistance completed. Patient transferred, IV remains as6 in place. Administered Medications: 18:28 Drug: Ativan (LORazepam) 2 mg Route: IM; Site: left deltoid; ab2 22:33 Follow up: Response: No adverse reaction as6 18:31 Drug: Ketalar (ketamine) 1 mg/kg Route: IVP; Site: left wrist; ab2 22:33 Follow up: Response: No adverse reaction as6 18:49 Drug: Fosphenytoin 1 grams Route: IVPB; Site: right antecubital; ab2 22:33 Follow up: Response: No adverse reaction; IV Status: Completed infusion; IV Intake: as6 100ml 19:37 Drug: Ativan (LORazepam) 2 mg Route: IVP; Site: right antecubital; as6 22:33 Follow up: Response: No adverse reaction as6 19:56 Drug: Keppra (levETIRAcetam) 1000 mg Route: IV; Rate: calculated rate; Site: right as6 antecubital; 22:33 Follow up: Response: No adverse reaction; IV Status: Completed infusion; IV Intake: as6 1000ml 19:56 Drug: Fosphenytoin 500 mg Route: IVPB; Site: left wrist; as6 22:34 Follow up: Response: No adverse reaction; IV Status: Completed infusion; IV Intake: as6 100ml Intake: 22:33 IV: 100ml; Total: 100ml. as6 22:33 IV: 1000ml; Total: 1100ml. as6 22:34 IV: 100ml; Total: 1200ml. as6 Outcome: 20:11 ER care complete, transfer ordered by . juan 22:37 Transferred by ground EMS to [facility], Transfer form as6 completed. 22:37 Condition: stable 22:37 Instructed on the need for transfer. 22:38 Patient left the ED. as6 Signatures: Dispatcher [employer] EDMS Blue Rodriguez MD MD cha Mickail, Joel, PA PA jmm Calderon, Audri, RN RN aa5 Akila Ojeda Deanna 3 Philip Jeronimo RN RN Asia Torrez1 Lennox Banuelos RN RN as6 Rolando Bahena2
[2022-03-15 21:03] LABS: Urine Blood Trace-lysed (Negative); Urine Glucose Negative (Negative); Urine Protein Negative (Negative); Urine Specific Gravity 1.015 (1.005-1.030); Urine pH 5.5 (5.0-7.0)
[2022-03-15 21:18] LABS: Barbiturates NEGATIVE (NEGATIVE); Benzodiazepines POSITIVE (NEGATIVE); Cocaine NEGATIVE (NEGATIVE); METHAMPHETAM NEGATIVE (NEGATIVE); Methadone NEGATIVE (NEGATIVE); Opiates NEGATIVE (NEGATIVE); Phencyclidine NEGATIVE (NEGATIVE); THC Cannibis POSITIVE (NEGATIVE)
[2022-03-15 23:03] VITALS: TEMP 98
[2022-03-15 23:12] VITALS: BP 94/58; O2SAT 98
--- NOTE | 2022-03-16 21:17 | RAD REPORT ---
EXAM DESCRIPTION: CT - Head C Spine Mpr Wo Con - 03/16/2022 5:17 am CLINICAL HISTORY: 32 years, Male, Fall, seizure, unwitnessed COMPARISON: 06/06/2021 FINDINGS: Multiple transaxial tomograms of the brain were obtained from the base of the skull to the vertex without contrast. 2-D multiplanar reformats and the coronal and sagittal plane were performed and reviewed. Multiple axial CT images through the cervical spine were obtained at 2 mm slice thickness at 2 mm int erval reconstruction. In addition 2-D multiplanar reformats and the sagittal coronal plane were perfo rmed and reviewed. This exam was performed according to our departmental dose-optimization protocol, which includes auto mated exposure control, adjustment of the mA and/or kV according to patient size and/or use of iterat senthil reconstruction technique. CT head Brain parenchyma as well as the natarajan and white matter differentiation demonstrate to be unrem arkable. There is no midline shift and/or mass effect. There is no evidence for acute hemorrhage and/ or infarction. Lateral ventricles and cisterns displace normal appearance. No intra or extra axia l fluid collections were seen. The calvarium is intact with no evidence for fracture. The visualized portions of the paranasal sinuses and orbits demonstrate to be clear. There is hypoplastic/minimally aerated left mastoid cells. CT C-spine: The alignment of the vertebral bodies are normal. There is no evidence of fracture or s ubluxation. There is degenerative disc disease with decreased intervertebral disc height, anterior sp ondylosis and posterior osteophyte complex at C5/C6 and minimally at C6/C7. The spinal canal demonstr ate no evidence for significant stenosis. Neural foramina demonstrate to be unremarkable. The uncover tebral joints demonstrate to be normal. There is no prevertebral soft tissue swelling. Visualized por tions of the lung apices demonstrate to unremarkable. Sagittal coronal reformatted images demonstrate no subluxation or bony abnormalities. IMPRESSION: No acute intracranial hemorrhage identified. Unremarkable CT scan of the head. No evidence for fracture or subluxation of the cervical spine. Degenerative disc disease at C5/C6 and minimally at C6/C7. Electronically signed by: Walter Rene MD 03/15/2022 10:38 PM CDT Due to temporary technical issues with the PACS/Fluency reporting system, reports are being signed by the in house radiologists without review as a courtesy to insure prompt reporting. The interpreting radiologist is fully responsible for the content of the report.
== END 2022-03-15 22:38 ==
LOC: ER 17:57
DX: G40.509 Epileptic seizures related to external causes, not intractable, without status epilepticus (principal); F32.A Depression, unspecified; Z20.822 Contact with and (suspected) exposure to COVID-19
CPT/HCPCS: 36415; 70450; 72125; 80048; 80076; 80185; 80307; 80320; 80329; 81003; 85025; 85610; 85730; 93005; 96372; 99285; J0330; J1953; J2704; J7030; Q2009; U0003

== ENCOUNTER 2023-01-10 10:58 | Inpatient (IN) | payer SELFPAY ==
--- OUTSIDE RECORDS SUMMARY | 2023-01-10 11:05 | XMS REPORT | Continuity of Care Document ---
:1990 Author Organization [facility] t Address [address] [place] [address] Care Team Providers Name Role Phone ROYER GARSIA Primary Care Physician Unavailable JETT MONTOYA Attending Clinician Unavailable BECKY PATEL I. Attending Clinician Unavailable GENO LAMBERT Attending Clinician Unavailable DULCE SHIN Attending Clinician Unavailable Preet Lebron MD Attending Clinician Dulce Shin MD Attending Clinician [phone] Nakul Chambers MD Attending Clinician Jus Yoon MD Attending Clinician [phone] Leila Salazar MD Attending Clinician PREET LEBRON Attending Clinician Unavailable CARSON AUGUST Attending Clinician Unavailable TAZ BRUCE Attending Clinician Unavailable JETT MONTOYA Admitting Clinician Unavailable BECKY PATEL I. 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 nonepilept 00:00: Me dical ic seizure ic seizure 00 Ce nter Status Status Disease Active 2017-[address] [facility] epilepticu epilepticu 0-27 [facility] s s 00:00: Medical 00 [facility] Acute Acute Disease Active 2017-[address] respirator respirator 0-27 [facility] kes y failure y failure 00:00: [facility] with with 00 Center hypoxia hypoxia Essential Essential Disease Active 2017-[address] hypertensi hypertensi 0-27 Ale[facility]r kes on on 00:00: Medical 00 [facility] Acute Acute Disease Active 2017-[address] encephalop encephalop 0-27 [facility] kes athy athy 00:00: Medical 00 [facility] Obesity Obesity Disease Active [facility] 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: [facility] major major 00 Center depressive depressive disorder disorder Suicide Suicide Disease Active [facility] 00 Center Seizure Seizure Disease Active [facility] 00 Center Allergies, Adverse Reactions, Alerts Allergy Allergy Status Severity Reaction(s) Onset Inactive Treating Comm ents Source Name Type Date Date Clinician LORAZEPA Allergy Active Med Hives [facility] M 08-10 00:00: 00 NO KNOWN Allergy Active [facility]GIE S Social History Social Habit Start Date Stop Date Quantity Comments Source History SDOH [facility] Alcohol Binge Medical [facility] History SDOH [facility] Transport Non-Med Medical Center History [facility] Housing Places Medical Ce nter Lived History [facility] Alcohol Frequency Medical Center History [facility] Alcohol Std Drinks Medica l Center History [facility] 2022-03-16 2022-03-[address] [facility] Transport Med 00:00:00 00:00:[address] History [facility] 2022-03-16 2022-03-[address] [facility] Housing Unable to 00:00:00 00:00:00 Medical Center Pay History [facility] 2022-03-16 2022-03-[address] [facility] Housing Homeless 00:00:00 00:00:00 Medical Center Last Year Alcohol intake 2022-03-16 2022-03-16 [facility]00 of alcohol Medical Center (finding) History [facility] 2021-06-07 2021-06-07 every now and [facility] Alcohol Comment 00:00:00 00:00:00 then Medical C enter Tobacco use and 2015-11-01 2015-11-[address] [facility] Aleks[facility]r kes exposure 00:00:00 00:00:00 Medical Center Sex Assigned At [address] Aleksandr kes 00:00:00 00:00:00 Medical Center Smoking Status Start Date Stop Date Source Never smoker [facility] Medications Ordered Filled Start Stop Current Ordering Indication Dosage Frequency Signature Comments Components Source Medication Medication Date Date Medication? Clinician (SIG) Name Name lamoTRIgine 2022- No 100mg QD Take [address] (LaMICtal) 03-21 tablet [facility] 100 MG 00:00: 23:59 (100 mg Medical tablet 00 :00 total) by Center mouth daily. topiramate Yes 50mg Q.5D Take [address] (TOPAMAX) 06 by mouth 2 Luke s 50 MG 10:24: (two) Medical tablet 51 times Center daily. zolpidem 2021- No 10mg Take [address] (AMBIEN) 10 03-20-06 by mouth Ana es mg tablet 08:46: 00:00 every Medica l 28 :00 night as Center needed for Insomnia. diazePAM 10mg Take [address] (VALIUM) 10 03-20 05-06 by mouth Ana es MG tablet 08:46: 00:00 every 6 Medi tyrone 28 :00 (six) Center hours as needed for Anxiety. lamoTRIgine No 25mg QD Take [address] (LaMICtal) 06-11 05-06 tablet (25 Aleksandr kes 25 MG 00:00: 00:00 mg total) Medica l tablet 00 :00 by mouth Center daily. venlafaxine Yes 75mg Q.5D Take [address] (EFFEXOR) 06-10 tablet (75 Luke s 75 MG 00:00: mg total) Medical tablet 00 by mouth 2 Center (two) times daily. phenytoin 200mg Q.5D Take [address] (DILANTIN) 06-10 07-27 capsule [facility] 200 MG ER 00:00: 23:59 (200 mg Medi tyrone capsule 00 :00 total) by Center mouth 2 (two) times daily. Immunizations Ordered Immunization Filled Immunization Date Status Commen ts Source Name Name Influenza Four-QIV 2018-09-[address] [facility] Non-PF 5+ YR 00:00:00 Medical Cent er Vital Signs Vital Name Observation Time Observation Value Comments Source HEIGHT 2020-09-29 05:00:00 177.8 cm WEIGHT 2020-09-29 05:00:00 113.399 kg WEIGHT 2021-06-07 07:44:00 127.2 kg HEIGHT 2021-06-06 18:05:00 180.3 cm WEIGHT 2021-06-06 18:05:00 123.8 kg WEIGHT 2022-03-18 00:41:00 120.203 kg HEIGHT 2022-03-16 04:00:00 177.8 cm WEIGHT 2022-03-16 04:00:00 119.296 kg WEIGHT 2022-03-18 00:41:00 120.203 kg HEIGHT 2022-03-16 04:00:00 177.8 cm WEIGHT 2022-03-16 04:00:00 119.296 kg WEIGHT 2022-03-18 00:41:00 120.203 kg HEIGHT 2022-03-16 04:00:00 177.8 cm WEIGHT 2022-03-16 04:00:00 119.296 kg WEIGHT 2021-06-07 07:44:00 127.2 kg HEIGHT 2021-06-06 18:05:00 180.3 cm WEIGHT 2021-06-06 18:05:00 123.8 kg HEIGHT 2020-09-29 05:00:00 177.8 cm WEIGHT 2020-09-29 05:00:00 113.399 kg Systolic blood 2022-03-20 03:00:00 118 mm[Hg] [facility] Diastolic blood 2022-03-20 03:00:00 78 mm[Hg] [facility] Heart rate 2022-03-20 03:00:00 85 /min [facility] Body temperature 2022-03-20 03:00:00 36.61 Hortencia [facility] Respiratory rate 2022-03-20 03:00:00 19 /min [facility] Oxygen saturation in 2022-03-20 03:00:00 98 /min [facility] Arterial blood by Medical Ce nter Pulse oximetry Body weight 2022-03-18 00:41:00 120.203 kg [facility] BMI 2022-03-18 00:41:00 38.02 kg/m2 [facility] Body height 2022-03-16 04:00:00 177.8 cm [facility] Procedures Procedure Date / Time Performed Performing Clinician Sour nabil CBC W/PLT COUNT & AUTO 2022-03-19 [facility]:57[facility]22-03-19 03:57[facility]22-03-19 03:57[facility]22-03-19 [facility] W/[facility]T [facility] & AUTO 2022-03-19 03:57:00 Darron [facility] XR LUMBAR SPINE 2 OR 3 2022-03-18 17:00:00 Leila Salazar [facility] POCT-GLUCOSE METER 2022-03-18 12:11:00 Marie [facility] POCT-GLUCOSE METER 2022-03-18 08:04:00 ThanmichelNakul steve [facility] CBC W/PLT COUNT & AUTO 2022-03-18 04:42:00 Swan[place] [facility] BASIC METABOLIC PANEL 2022-03-18 04:42:00 Darron [facility] MAGNESIUM 2022-03-18 04:42:00 [place] PHOSPHORUS 2022-03-18 04:42:00 [place] CBC W/PLT COUNT & AUTO 2022-03-18 04:42:00 Darron [facility] POCT-GLUCOSE METER 2022-03-17 23:43:00 Thanpower Nakul [facility] POCT-GLUCOSE METER 2022-03-17 17:57:00 Thandu, Nakul [facility] POCT-GLUCOSE METER 2022-03-17 12:20:00 Thanpower Nakul [facility] CBC W/PLT COUNT & AUTO 2022-03-17 03:09:00 Darron [facility] BASIC METABOLIC PANEL 2022-03-17 03:09:00 [facility] 2022-03-17 03:09:00 [place] PHOSPHORUS 2022-03-17 03:09:00 [place] CBC W/PLT COUNT & AUTO 2022-03-17 03:09:00 [facility] PO[facility]UCOSE METER 2022-03-16 16:46:00 Preet Lebron [facility] POCT-GLUCOSE METER 2022-03-16 13:29:00 Lebron, [facility] POCT-GLUCOSE METER 2022-03-16 10:49:00 Sabrina [facility] EEG AWAKE AND DROWSY 2022-03-16 10:30:00 Mitch Dawson [facility] BASIC METABOLIC PANEL 2022-03-16 10:13:00 Jud Jain [facility] LACTIC ACID, VENOUS 2022-03-16 10:13:00 [facility], ARTERIAL 2022-03-16 08:02:00 [facility] LACT[facility] ACID, VENOUS 2022-03-16 05:18:[address] [facility]RAIN WITHOUT IV 2022-03-16 04:43[facility]00 [facility], URINE 2022-03-16 04:09:00 Sabrina [facility] CBC W/PLT COUNT & AUTO 2022-03-16 04:06:00 [facility] CREATINE KINASE (CK) 2022-03-16 04:06:00 Sabrina [facility] ETHANOL 2022-03-16 04:06:00 Sabrina [facility] LAMOTRIGINE LEVEL 2022-03-16 04:06:00 Sabrina [facility] CARBAMAZEPINE 2022-03-16 04:06:00 Lebron, [facility] CBC W/PLT COUNT & AUTO 2022-03-16 04:06:00 Darron [facility] MISCELLANEOUS LAB ORDER 2022-03-16 02:16:00 Sabrina [facility] PROCALCITONIN 2022-03-16 02:16:00 [place] LACTIC ACID, VENOUS 2022-03-16 02:16:00 DarronMaureen ferrer [facility] COMPREHENSIVE METABOLIC 2022-03-16 02:16:[address] [facility] PANEL [facility] MAGNESIUM 2022-03-16 02:16:00 Darron [facility] PHOSPHORUS 2022-03-16 02:16:00 [place] CALCIUM, IONIZED 2022-03-16 02:16:00 [facility] PT/APTT 2022-03-16 02:16:00 [facility] TROPONIN I 2022-03-16 02:16:00 [facility] LAMOTRIGINE LEVEL 2022-03-16 02:16:00 [facility] PHENYTOIN LEVEL, TOTAL 2022-03-16 02:16:00 Preet Lebron [facility] Plan of Care Planned Activity Planned Date Details Comments Source Future Scheduled 2023-03-[address] [facility] Scre[facility] (12+) [code = Tobacco Cessation Counseling and Screening (12+)] Future Scheduled 2023-01-[address] [facility] Test 00:00:00 (procedure) [code = [facility] [id number]] Future Scheduled 2022-07-[address] [facility] Test 00:00:00 (#1) [code = Medical Center INFLUENZA VACCINE (#1)] Future Scheduled 2007-01-19 DTAP/TDAP/TD VACCINES [facility] Test 00:00:00 (1 - Tdap) [code = Medical C enter DTAP/TDAP/TD VACCINES (1 - Tdap)] Future Scheduled 2006-01-19 HEPATITIS C SCREENING [facility] Test 00:00:00 [code = HEPATITIS C Medical Center SCREENING] Future Scheduled 1990 COVID-19 VACCINE (#1) [facility] Test 00:00:00 [code = COVID-[address] VACCINE (#1)] Encounters Start End Encounter Admission Attending Care Care Encounter Source Date/Time Date/Time Type Type Clinicians Facility Department ID 2021-08-21 Inpatient UR [facility] Neurology [id number] SLE 11:31:32 JETT CARDOZA 2021-06-06 Inpatient UR [facility] Neuro ICU [id number] SLE 17:43:00 BECKY 2022-03-24 2022-03-24 Outpatient RON FAUSTO, [facility] [id number] 00:00:00 00:00:00 [facility] 2022-03-15 2022-03-20 Inpatient ER RAY-MARIAM, [facility] Neurology 20 [id number] [facility] 23:59:00 10:24:00 DULCE 2022-03-15 2022-03-20 [facility] [id number] 23:59:00 10:24:00 Encounter Dulce Shin [facility] Nakul Chambers [facility] 2022-03-16 2022-03-16 Travel [facility] [id number] [facility]00 [facility] Results Test Description Test Time Test Comments Results Result Comments Source MISCELLANEOUS LAB ORDER 2022-03-21 08:24:28 Test Item Value Reference Range Interpretation Comme nts SCAN RESULT (test code = 6430612) See scanned report [id number] 04:42:16 Test Item Value Reference Range Interpretation Comments MAGNESIUM (BEAKER) (test code = 2.1 mg/dL 1.5-3.0 627) Sheet Metal Insulator ID - [id number] 04:42:16 Test Item Value Reference Range Interpretation Comments PHOSPHORUS (BEAKER) (test code = 2.5 mg/dL 2.5-4.5 604) Sheet Metal Insulator ID - [id number] METABOLIC [id number] 04:42:15 Test Item Value Reference Range Interpretation Comments SODIUM (BEAKER) 141 meq/L 135-148 (test code = 381) POTASSIUM (BEAKER) 3.9 meq/L 3.5-5.5 (test code = 379) CHLORIDE (BEAKER) 106 meq/L 98-106 (test code = 382) CO2 (BEAKER) (test 22 meq/L 20-31 code = 355) BLOOD UREA NITROGEN 9 mg/dL 10-26 L (BEAKER) (test code = 354) CREATININE (BEAKER) 0.86 mg/dL 0.50-1.20 (test code = 358) GLUCOSE RANDOM 92 mg/dL 70-110 (BEAKER) (test code = 652) CALCIUM (BEAKER) 9.0 mg/dL 8.5-10.5 (test code = 697) EGFR (BEAKER) (test 102 mL/min/1.73 ESTIM ATED GFR IS code = 1092) sq m NOT ACCURATE CREATININE CLEARANCE IN PREDICTING GLOMERULAR FILTRATION RATE . ESTIMATED GFR I S NOT APPLICABLE FOR DIALYSIS PATIEN TS. Sheet Metal Insulator ID - [id number] W/PLT COUNT & AUTO [id number] 04:10:07 Test Item Value Reference Range Interpretation Comments WHITE BLOOD CELL COUNT (BEAKER) 9.0 K/ L 4.0-10.0 (test code = 775) RED BLOOD CELL COUNT (BEAKER) 5.11 M/ L 4.20-5.80 (test code = 761) HEMOGLOBIN (BEAKER) (test code = 15.0 GM/DL 13.0-16.8 410) HEMATOCRIT (BEAKER) (test code = 46.6 % 36.0-50.0 411) MEAN CORPUSCULAR VOLUME (BEAKER) 91.2 fL 82.0-99.0 (test code = 753) MEAN CORPUSCULAR HEMOGLOBIN 29.4 pg 27.0-33.0 (BEAKER) (test code = 751) MEAN CORPUSCULAR HEMOGLOBIN CONC 32.2 GM/DL 32.0-36.0 (BEAKER) (test code = 752) RED CELL DISTRIBUTION WIDTH 12.3 % 12.0-15.0 (BEAKER) (test code = 412) PLATELET COUNT (BEAKER) (test 232 K/CU MM 150-430 code = 756) MEAN PLATELET VOLUME (BEAKER) 10.4 fL 6.0-11.5 (test code = 754) NUCLEATED RED BLOOD CELLS 0 /100 WBC 0-0 (BEAKER) (test code = 413) NEUTROPHILS RELATIVE PERCENT 63 % (BEAKER) (test code = 429) LYMPHOCYTES RELATIVE PERCENT 27 % (BEAKER) (test code = 430) MONOCYTES RELATIVE PERCENT 9 % (BEAKER) (test code = 431) EOSINOPHILS RELATIVE PERCENT 0 % (BEAKER) (test code = 432) BASOPHILS RELATIVE PERCENT 0 % (BEAKER) (test code = 437) NEUTROPHILS ABSOLUTE COUNT 5.66 K/ L 1.80-8.00 (BEAKER) (test code = 670) LYMPHOCYTES ABSOLUTE COUNT 2.45 K/ L 1.48-4.50 (BEAKER) (test code = 414) MONOCYTES ABSOLUTE COUNT (BEAKER) 0.84 K/ L 0.00-1.30 (test code = 415) EOSINOPHILS ABSOLUTE COUNT 0.04 K/ L 0.00-0.50 (BEAKER) (test code = 416) BASOPHILS ABSOLUTE COUNT (BEAKER) 0.03 K/ L 0.00-0.20 (test code = 417) IMMATURE GRANULOCYTES-RELATIVE 0 % 0-0 PERCENT (BEAKER) (test code = 2801) RAD, SPINE, LUMBAR, 2 OR 3 [id number] 17:31:00Reason for exam:->S/p fall -C/o pain -to r/o fracture in lumbar /Sacral regionShould this be performed at the bedside?->Yes [facility] 1990 Sex: MFINAL REPORT Exam: RAD, SPINE, LUMBAR, 2 OR 3 VIEWSDate: 03/18/2022 5:30 PM History: Fall, lumbosacral pain Comparison: None DISCUSSION/IMPRESSION: AP, lateral, oblique and cone-down views of the lumbar spine were obtained. There are five non-rib bearing lumbar vertebra. There are no fractures or subluxations. Facet joints are preserved. AP alignment is preserved. Minimal dextroscoliosis. Intervertebral disc space heights are grossly preserved. Vertebral body heights are grossly preserved. If there is continued pain or continued clinical concern consider CT for further evaluation. Signed: Farzad Sifuentes MDReport Verified Date/Time: 03/18/2022 17:31:32 Reading Location: [facility] P048 Angio Body Reading Room POC-Glucose [id number] 12:24:00 Test Item Value Reference Range Interpretation Comments POC-Glucose Meter (test 89 mg/dL 70-110 : TE STED AT [facility] code = 1538) [address] [facility] [place] [address]: Sheet Metal Insulator/Techni chidi ID = [id number] for Crystal Miller y Lab Interpretation (test Normal code = 57573-6) [facility] [id number] 12:24:00 Test Item Value Reference Range Interpretation Comments POC-GLUCOSE METER 89 mg/dL 70-110 : TESTED A T [facility] [address] (BEAKER) (test code = [facility], 1538) [place] [address]: Sheet Metal Insulator/Techni chiid ID = [id number] for Paty Trevino POCT-GLUCOSE [id number] 08:16:23 Test Item Value Reference Range Interpretation Comments POC-GLUCOSE METER 116 mg/dL 70-110 H : TESTED A T [facility] [address] (BEAKER) (test code [facility], = 1538) [place] [address] 384: Sheet Metal Insulator/Techni chidi ID = [id number] for Paty Trevino BASIC METABOLIC [id number] 05:41:59 Test Item Value Reference Range Interpretation Comments SODIUM (BEAKER) 139 meq/L 135-148 (test code = 381) POTASSIUM (BEAKER) 3.9 meq/L 3.5-5.5 (test code = 379) CHLORIDE (BEAKER) 107 meq/L 98-106 H (test code = 382) CO2 (BEAKER) (test 18 meq/L 20-31 L code = 355) BLOOD UREA NITROGEN 10 mg/dL 10-26 (BEAKER) (test code = 354) CREATININE (BEAKER) 0.84 mg/dL 0.50-1.20 (test code = 358) GLUCOSE RANDOM 81 mg/dL 70-110 (BEAKER) (test code = 652) CALCIUM (BEAKER) 9.0 mg/dL 8.5-10.5 (test code = 697) EGFR (BEAKER) (test 105 mL/min/1.73 ESTIM ATED GFR IS code = 1092) sq m NOT ACCURATE CREATININE CLEARANCE IN PREDICTING GLOMERULAR FILTRATION RATE . ESTIMATED GFR I S NOT APPLICABLE FOR DIALYSIS PATIEN TS. Sheet Metal Insulator ID - [id number] 05:37:05 Test Item Value Reference Range Interpretation Comments PHOSPHORUS (BEAKER) (test code = 2.5 mg/dL 2.5-4.5 604) Sheet Metal Insulator ID - [id number] 05:37:04 Test Item Value Reference Range Interpretation Comments MAGNESIUM (BEAKER) (test code = 2.0 mg/dL 1.5-3.0 627) Sheet Metal Insulator ID - [id number] W/PLT COUNT & AUTO [id number] 04:59:40 Test Item Value Reference Range Interpretation Comments WHITE BLOOD CELL COUNT (BEAKER) 8.4 K/ L 4.0-10.0 (test code = 775) RED BLOOD CELL COUNT (BEAKER) 5.24 M/ L 4.20-5.80 (test code = 761) HEMOGLOBIN (BEAKER) (test code = 15.4 GM/DL 13.0-16.8 410) HEMATOCRIT (BEAKER) (test code = 49.0 % 36.0-50.0 411) MEAN CORPUSCULAR VOLUME (BEAKER) 93.5 fL 82.0-99.0 (test code = 753) MEAN CORPUSCULAR HEMOGLOBIN 29.4 pg 27.0-33.0 (BEAKER) (test code = 751) MEAN CORPUSCULAR HEMOGLOBIN CONC 31.4 GM/DL 32.0-36.0 L (BEAKER) (test code = 752) RED CELL DISTRIBUTION WIDTH 12.9 % 12.0-15.0 (BEAKER) (test code = 412) PLATELET COUNT (BEAKER) (test 225 K/CU MM 150-430 code = 756) MEAN PLATELET VOLUME (BEAKER) 10.7 fL 6.0-11.5 (test code = 754) NUCLEATED RED BLOOD CELLS 0 /100 WBC 0-0 (BEAKER) (test code = 413) NEUTROPHILS RELATIVE PERCENT 57 % (BEAKER) (test code = 429) LYMPHOCYTES RELATIVE PERCENT 34 % (BEAKER) (test code = 430) MONOCYTES RELATIVE PERCENT 7 % (BEAKER) (test code = 431) EOSINOPHILS RELATIVE PERCENT 1 % (BEAKER) (test code = 432) BASOPHILS RELATIVE PERCENT 1 % (BEAKER) (test code = 437) NEUTROPHILS ABSOLUTE COUNT 4.82 K/ L 1.80-8.00 (BEAKER) (test code = 670) LYMPHOCYTES ABSOLUTE COUNT 2.83 K/ L 1.48-4.50 (BEAKER) (test code = 414) MONOCYTES ABSOLUTE COUNT (BEAKER) 0.61 K/ L 0.00-1.30 (test code = 415) EOSINOPHILS ABSOLUTE COUNT 0.08 K/ L 0.00-0.50 (BEAKER) (test code = 416) BASOPHILS ABSOLUTE COUNT (BEAKER) 0.04 K/ L 0.00-0.20 (test code = 417) IMMATURE GRANULOCYTES-RELATIVE 0 % 0-0 PERCENT (BEAKER) (test code = 2801) POCT-GLUCOSE [id number] 23:54:14 Test Item Value Reference Range Interpretation Comments POC-GLUCOSE METER 89 mg/dL 70-110 : Notified RN/MD: TESTED ([facility]) (test code = [facility] [address] [place] [address]) [facility] [address]: Sheet Metal Insulator/Techni chidi ID = [id number] for G reen, Marychuy POCT-GLUCOSE [id number] 18:09:06 Test Item Value Reference Range Interpretation Comments POC-GLUCOSE METER 92 mg/dL 70-110 : TESTED A T [facility] [address] ([facility]) (test code = [facility], 1537) [facility] [address] 384: Sheet Metal Insulator/Techni chidi ID = [id number] for B all, Ambar POCT-GLUCOSE [id number] 12:32:30 Test Item Value Reference Range Interpretation Comments POC-GLUCOSE METER 98 mg/dL 70-110 : TESTED A T [facility] [address] (BEAKER) (test code = [facility] [address] [facility], 1538) [facility] [address] 384: Sheet Metal Insulator/Techni chidi ID = [id number] for B all, Ambar [id number] 03:49:44 Test Item Value Reference Range Interpretation Comments MAGNESIUM (BEAKER) (test code = 2.1 mg/dL 1.5-3.0 627) Sheet Metal Insulator ID - [id number] 03:49:44 Test Item Value Reference Range Interpretation Comments PHOSPHORUS (BEAKER) (test code = 2.7 mg/dL 2.5-4.5 604) Sheet Metal Insulator ID - [id number] METABOLIC [id number] 03:49:43 Test Item Value Reference Range Interpretation Comments SODIUM (BEAKER) 139 meq/L 135-148 (test code = 381) POTASSIUM (BEAKER) 4.0 meq/L 3.5-5.5 (test code = 379) CHLORIDE (BEAKER) 107 meq/L 98-106 H (test code = 382) CO2 (BEAKER) (test 21 meq/L 20-31 code = 355) BLOOD UREA NITROGEN 8 mg/dL 10-26 L (BEAKER) (test code = 354) CREATININE (BEAKER) 0.76 mg/dL 0.50-1.20 (test code = 358) GLUCOSE RANDOM 81 mg/dL 70-110 (BEAKER) (test code = 652) CALCIUM (BEAKER) 8.6 mg/dL 8.5-10.5 (test code = 697) EGFR (BEAKER) (test 117 mL/min/1.73 ESTIM ATED GFR IS code = 1092) sq m NOT ACCURATE CREATININE CLEARANCE IN PREDICTING GLOMERULAR FILTRATION RATE . ESTIMATED GFR I S NOT APPLICABLE FOR DIALYSIS PATIEN TS. Sheet Metal Insulator ID - [id number] W/PLT COUNT & AUTO [id number] 03:16:58 Test Item Value Reference Range Interpretation Comments WHITE BLOOD CELL COUNT (BEAKER) 10.0 K/ L 4.0-10.0 (test code = 775) RED BLOOD CELL COUNT (BEAKER) 4.82 M/ L 4.20-5.80 (test code = 761) HEMOGLOBIN (BEAKER) (test code = 14.2 GM/DL 13.0-16.8 410) HEMATOCRIT (BEAKER) (test code = 44.9 % 36.0-50.0 411) MEAN CORPUSCULAR VOLUME (BEAKER) 93.2 fL 82.0-99.0 (test code = 753) MEAN CORPUSCULAR HEMOGLOBIN 29.5 pg 27.0-33.0 (BEAKER) (test code = 751) MEAN CORPUSCULAR HEMOGLOBIN CONC 31.6 GM/DL 32.0-36.0 L (BEAKER) (test code = 752) RED CELL DISTRIBUTION WIDTH 12.9 % 12.0-15.0 (BEAKER) (test code = 412) PLATELET COUNT (BEAKER) (test 210 K/CU MM 150-430 code = 756) MEAN PLATELET VOLUME (BEAKER) 10.5 fL 6.0-11.5 (test code = 754) NUCLEATED RED BLOOD CELLS 0 /100 WBC 0-0 (BEAKER) (test code = 413) NEUTROPHILS RELATIVE PERCENT 73 % (BEAKER) (test code = 429) LYMPHOCYTES RELATIVE PERCENT 20 % (BEAKER) (test code = 430) MONOCYTES RELATIVE PERCENT 6 % (BEAKER) (test code = 431) EOSINOPHILS RELATIVE PERCENT 1 % (BEAKER) (test code = 432) BASOPHILS RELATIVE PERCENT 0 % (BEAKER) (test code = 437) NEUTROPHILS ABSOLUTE COUNT 7.25 K/ L 1.80-8.00 (BEAKER) (test code = 670) LYMPHOCYTES ABSOLUTE COUNT 1.99 K/ L 1.48-4.50 (BEAKER) (test code = 414) MONOCYTES ABSOLUTE COUNT (BEAKER) 0.61 K/ L 0.00-1.30 (test code = 415) EOSINOPHILS ABSOLUTE COUNT 0.08 K/ L 0.00-0.50 (BEAKER) (test code = 416) BASOPHILS ABSOLUTE COUNT (BEAKER) 0.03 K/ L 0.00-0.20 (test code = 417) IMMATURE GRANULOCYTES-RELATIVE 0 % 0-0 PERCENT (BEAKER) (test code = 2801) POCT-GLUCOSE [id number] 16:57:38 Test Item Value Reference Range Interpretation Comments POC-GLUCOSE METER 87 mg/dL 70-110 : TESTED A T [facility] 42201 (BEAKER) (test code = [facility] [address], 1538) [place] [address] 384: Sheet Metal Insulator/Techni chidi ID = [id number] for Dulce Martinez POCT-GLUCOSE [id number] 13:40:56 Test Item Value Reference Range Interpretation Comments POC-GLUCOSE METER 99 mg/dL 70-110 : TESTED A T [facility] 89420 (BEAKER) (test code = [facility] [address], 1538) [place] [address] 384: Sheet Metal Insulator/Techni chidi ID = [id number] for Dulce Martinez POCT-GLUCOSE [id number] 11:00:03 Test Item Value Reference Range Interpretation Comments POC-GLUCOSE METER 99 mg/dL 70-110 : TESTED A T [facility] 79206 (BEAKER) (test code = [facility] [address], 1538) [place] [address] 384: Sheet Metal Insulator/Techni chidi ID = [id number] for Annia Vega BASIC METABOLIC [id number] 10:38:10 Test Item Value Reference Range Interpretation Comments SODIUM (BEAKER) 139 meq/L 135-148 (test code = 381) POTASSIUM (BEAKER) 4.0 meq/L 3.5-5.5 (test code = 379) CHLORIDE (BEAKER) 106 meq/L 98-106 (test code = 382) CO2 (BEAKER) (test 25 meq/L 20-31 code = 355) BLOOD UREA NITROGEN 6 mg/dL 10-26 L (BEAKER) (test code = 354) CREATININE (BEAKER) 0.78 mg/dL 0.50-1.20 (test code = 358) GLUCOSE RANDOM 101 mg/dL 70-110 (BEAKER) (test code = 652) CALCIUM (BEAKER) 8.7 mg/dL 8.5-10.5 (test code = 697) EGFR (BEAKER) (test 114 mL/min/1.73 ESTIM ATED GFR IS code = 1092) sq m NOT ACCURATE CREATININE CLEARANCE IN PREDICTING GLOMERULAR FILTRATION RATE . ESTIMATED GFR I S NOT APPLICABLE FOR DIALYSIS PATIEN TS. Sheet Metal Insulator ID - [id number] ACID, [id number] 10:33:48 Test Item Value Reference Range Interpretation Comments LACTATE BLOOD VENOUS (2) (BEAKER) 1.08 mmol/L 0.50-2.20 (test code = 2872) Sheet Metal Insulator ID - [id number] gas, [id number] 08:14:43 Test Item Value Reference Range Interpretation Comments pH, Arterial (test code 7.37 7.35-7.45 = 2744-1) pCO2, Arterial (test 40 See_Comment [Autom ated code = 2019-8) message] The system which generated this result transmitted reference range : 35 - 45 mm Hg. The reference range was not used to interpret this result as normal/abnormal . pO2, Arterial (test 79 See_Comment L [Automa christine code = 2703-7) message] The system which generated this result transmitted reference range : 80 - 90 mm Hg. The reference range was not used to interpret this result as normal/abnormal . O2 Sat, Arterial (test 95.4 % 96.0-97.0 L code = 2708-6) HCO3, Arterial (test 22 mmol/L 21-29 code = 1960-4) Base Excess, Arterial -2.6 mmol/L -2.0-3.0 L (test code = 1925-7) Patient Temperature 37.0 (test code = 8310-5) FIO2 (test code = 1819) 28 Lab Interpretation Abnormal (test code = 83824-3) [facility], [id number] 08:14:43 Test Item Value Reference Range Interpretation Comments PH ARTERIAL (BEAKER) (test code = 7.37 7.35-7.45 383) PCO2 ARTERIAL (BEAKER) (test code 40 mm Hg 35-45 = 384) PO2 ARTERIAL (BEAKER) (test code 79 mm Hg 80-90 L = 385) O2 SATURATION ARTERIAL (BEAKER) 95.4 % 96.0-97.0 L (test code = 386) HCO3 ARTERIAL (BEAKER) (test code 22 mmol/L 21-29 = 388) BASE EXCESS ARTERIAL (BEAKER) -2.6 mmol/L -2.0-3.0 L (test code = 387) PATIENT TEMPERATURE (BEAKER) 37.0 (test code = 1818) FIO2 (BEAKER) (test code = 1819) 28.0 [id number] 06:55:26 Test Item Value Reference Range Interpretation Comments CARBAMAZEPINE LEVEL (BEAKER) (test < ug/mL 4.0-12.0 L code = 696) Sheet Metal Insulator ID - CHANDA WLACTIC ACID, [id number] 05:41:33 Test Item Value Reference Range Interpretation Comments LACTATE BLOOD VENOUS (2) (BEAKER) 1.81 mmol/L 0.50-2.20 (test code = 2872) Sheet Metal Insulator ID - [id number] KINASE (CK)2022-03-16 05:27:29 Test Item Value Reference Range Interpretation Comments CREATINE KINASE TOTAL (BEAKER) (test 206 U/L 30-300 code = 380) Sheet Metal Insulator ID - [id number] drug screen, [id number] 05:16:38 Test Item Value Reference Range Interpretation Comments Barbiturate Screen Negative Negative (test code = 46771-6) Benzodiazepine Screen Positive Negative A (test code = 37696-3) Cocaine (Metab.) Negative Negative Screen (test code = 3397-7) Methadone Screen (test Negative Negative code = 17763-6) Opiate Screen (test Negative Negative code = 68157-7) Cannabinoid Screen Positive Negative A (test code = 76788-4) Amph/Methamph Screen Negative Negative (test code = 12211-8) Phencyclidine Screen Negative Negative (test code = 37141-6) pH, UA (test code = 7.5 5.0-8.0 5803-2) KASEY (test code = KASEY) DRUG CUTOFF CONC.Cocaine 300 ng/mL Cannabinoid 50 ng/mLBenzodiazepine 200 ng/mLBarbiturate 200 ng/mLPhencyclidine 25 ng/mLOpiate 300 ng/mLMethadone 300 ng/mLAmphetamine/ 1000 ng/mL Methamphetamine This assay provides an unconfirmed qualitative test result for the clinical management of patients in emergency situations. Chain of custody not maintained. Some fouj-tth-kzclxly medications, as well as adulterants, may cause inaccurate results. Clinical correlation should be applied. A more comprehensive drug screen or confirmation of a detected drug may be performed upon request.Sheet Metal Insulator ID - [id number] Lab Interpretation Abnormal (test code = 86161-7) [facility] S[facility]EN, [id number] 05:16:38 Test Item Value Reference Range Interpretation Comments [...] PH UA (BEAKER) (test code = 467) 7.5 5.0-8.0 DRUG CUTOFF CONC.Cocaine 300 ng/mL Cannabinoid 50 ng/mLBenzodiazepine 200 ng/mLBarbiturate 200 ng/mLPhencyclidine 25 ng/mLOpiate 300 ng/mLMethadone 300 ng/mLAmphetamine/ 1000 ng/mL MethamphetamineThis assay provides an unconfirmed qualitative test result for the clinical management of patients in emergency situations. Chain of custody not maintained. Some ieuq-tvz-csansdz medications, as well as adulterants, may cause inaccurate results. Clinical correlation should be applied. A more comprehensive drug screen or confirmation of a detected drug may be performed upon request.Sheet Metal Insulator ID - [id number] LEVEL 2022-03-16 04:52:37 Test Item Value Reference Range Interpretation Comments SALICYLATE LEVEL (BEAKER) (test code < mg/dL 20.0-30.0 L = 764) Sheet Metal Insulator ID - [id number] 04:52:36 Test Item Value Reference Range Interpretation Comments ACETAMINOPHEN LEVEL (BEAKER) (test < ug/mL 10.0-30.0 L code = 344) Sheet Metal Insulator ID - [id number] 04:48:54 Test Item Value Reference Range Interpretation Comments ETHANOL (BEAKER) < mg/dL See_Comment [Automated message] The (test code = 400) system [facility] generated this result tra nsmitted reference range : <=10. The reference r king was not used to int erpret this result as normal/abnormal . Sheet Metal Insulator ID - [id number], BRAIN, WITHOUT [id number] 04:48:00Unlisted Reason for Exam - Click Yes and Enter Reason Below->No [facility] : 1990 Sex: MFINAL REPORT CT, BRAIN, WITHOUT CONTRAST CLINICAL INDICATION: Seizure, nontraumatic (Age 18-40y) COMPARISON: None TECHNIQUE: Noncontrast axial CT imaging of the brain and skull. Coronal and sagittal reformats obtained. DOSE REDUCTION: Dose modulation, iterative reconstruction, and/or weight-based adjustment of the mA/kV was utilized to reduce the radiation dose to as low as reasonably achievable. FINDINGS:Cerebral parenchyma: No mass, acute intracranial hemorrhage or evidence of acute cortical infarct.Cerebellum and brainstem: No acute finding.Ventricles: No evidence of hydrocephalus.Extra-axial spaces: Unremarkable. Calvarium and skull base: Intact.Paranasal sinuses and mastoid air cells: Imaged chambers are without acute abnormality.Orbital contents: Included portions unremarkable. IMPRESSION: No acute intracranial abnormality. If there is persistent clinical concern for intracranial pathology, MR examination is recommended for further characterization. Signed: Kaveh Rudolph MDReport Verified Date/Time: 03/16/2022 04:48:43 CBC W/PLT COUNT & AUTO DIFFERENTIAL 2022-03-16 04:35:32 Test Item Value Reference Range Interpretation Comments WHITE BLOOD CELL COUNT (BEAKER) 11.5 K/ L 4.0-10.0 H (test code = 775) RED BLOOD CELL COUNT (BEAKER) 4.85 M/ L 4.20-5.80 (test code = 761) HEMOGLOBIN (BEAKER) (test code = 14.4 GM/DL 13.0-16.8 410) HEMATOCRIT (BEAKER) (test code = 44.3 % 36.0-50.0 411) MEAN CORPUSCULAR VOLUME (BEAKER) 91.3 fL 82.0-99.0 (test code = 753) MEAN CORPUSCULAR HEMOGLOBIN 29.7 pg 27.0-33.0 (BEAKER) (test code = 751) MEAN CORPUSCULAR HEMOGLOBIN CONC 32.5 GM/DL 32.0-36.0 (BEAKER) (test code = 752) RED CELL DISTRIBUTION WIDTH 12.8 % 12.0-15.0 (BEAKER) (test code = 412) PLATELET COUNT (BEAKER) (test 212 K/CU MM 150-430 code = 756) MEAN PLATELET VOLUME (BEAKER) 10.6 fL 6.0-11.5 (test code = 754) NUCLEATED RED BLOOD CELLS 0 /100 WBC 0-0 (BEAKER) (test code = 413) NEUTROPHILS RELATIVE PERCENT 73 % (BEAKER) (test code = 429) LYMPHOCYTES RELATIVE PERCENT 19 % (BEAKER) (test code = 430) MONOCYTES RELATIVE PERCENT 6 % (BEAKER) (test code = 431) EOSINOPHILS RELATIVE PERCENT 0 % (BEAKER) (test code = 432) BASOPHILS RELATIVE PERCENT 1 % (BEAKER) (test code = 437) NEUTROPHILS ABSOLUTE COUNT 8.39 K/ L 1.80-8.00 H (BEAKER) (test code = 670) LYMPHOCYTES ABSOLUTE COUNT 2.23 K/ L 1.48-4.50 (BEAKER) (test code = 414) MONOCYTES ABSOLUTE COUNT (BEAKER) 0.73 K/ L 0.00-1.30 (test code = 415) EOSINOPHILS ABSOLUTE COUNT 0.04 K/ L 0.00-0.50 (BEAKER) (test code = 416) BASOPHILS ABSOLUTE COUNT (BEAKER) 0.06 K/ L 0.00-0.20 (test code = 417) IMMATURE GRANULOCYTES-RELATIVE 0 % 0-0 PERCENT (BEAKER) (test code = 2801) PHENYTOIN LEVEL, [id number] 04:03:53 Test Item Value Reference Range Interpretation Comments PHENYTOIN (DILANTIN) (BEAKER) 14.2 ug/mL 10.0-20.0 (test code = 605) Sheet Metal Insulator ID - [id number] 03:33:34 Test Item Value Reference Range Interpretation Comments PROCALCITONIN (BEAKER) (test code = < ng/mL <0.05 3036) SEPSIS RISK (ng/mL)Low: 0.05-0.50Intermediate: 0.51-2.00High: >=2.01 COMPREHENSIVE METABOLIC [id number] 03:30:36 Test Item Value Reference Range Interpretation Comments TOTAL PROTEIN 7.0 gm/dL 6.0-8.5 (BEAKER) (test code = 770) ALBUMIN (BEAKER) 3.9 g/dL 3.5-5.0 (test code = 1145) ALKALINE PHOSPHATASE 102 U/L 30-115 (BEAKER) (test code = 346) BILIRUBIN TOTAL 0.6 mg/dL 0.1-1.3 (BEAKER) (test code = 377) SODIUM (BEAKER) (test 142 meq/L 135-148 code = 381) POTASSIUM (BEAKER) 4.2 meq/L 3.5-5.5 (test code = 379) CHLORIDE (BEAKER) 108 meq/L 98-106 H (test code = 382) CO2 (BEAKER) (test 16 meq/L 20-31 L code = 355) BLOOD UREA NITROGEN 7 mg/dL 10-26 L (BEAKER) (test code = 354) CREATININE (BEAKER) 0.84 mg/dL 0.50-1.20 (test code = 358) GLUCOSE RANDOM 90 mg/dL 70-110 (BEAKER) (test code = 652) CALCIUM (BEAKER) 8.7 mg/dL 8.5-10.5 (test code = 697) AST (SGOT) (BEAKER) 27 U/L 5-40 (test code = 353) ALT (SGPT) (BEAKER) 24 U/L 6-50 (test code = 347) EGFR (BEAKER) (test 105 ESTIMATE D GFR IS code = 1092) mL/min/1.73 sq NOT ACCURA TE m CREATININE CLEARANCE IN PREDICTING GLOMERULAR FILTRATION RATE . ESTIMATED GFR I S NOT APPLICABLE FOR DIALYSIS PATIEN TS. Sheet Metal Insulator ID - [id number] 03:28:09 Test Item Value Reference Range Interpretation Comments MAGNESIUM (BEAKER) (test code = 1.8 mg/dL 1.5-3.0 627) Sheet Metal Insulator ID - [id number] 03:28:09 Test Item Value Reference Range Interpretation Comments PHOSPHORUS (BEAKER) (test code = 2.2 mg/dL 2.5-4.5 L 604) Sheet Metal Insulator ID - [id number] ACID, [id number] 03:04:18 Test Item Value Reference Range Interpretation Comments LACTATE BLOOD VENOUS 4.39 mmol/L 0.50-2.20 HH Specime n slightly (2) (BEAKER) (test hemolyzed code = 2872) Sheet Metal Insulator ID - [id number] 02:55:02 Test Item Value Reference Range Interpretation Comments TROPONIN I (BEAKER) (test code = 397) < ng/mL 0.00-0.15 Troponin I (TnI) levels must be interpreted [...] failure, acidosis, acute neurological disease, and persistent tachyarrhythmia.Sheet Metal Insulator ID - [id number] 02:36:58 Test Item Value Reference Range Interpretation Comments PROTIME (BEAKER) (test code = 13.7 seconds 11.8-14.4 759) INR (BEAKER) (test code = 370) 1.10 1.20-1.50 L PARTIAL THROMBOPLASTIN TIME 27.6 seconds 23.2-36.1 (BEAKER) (test code = 760) RECOMMENDED COUMADIN/WARFARIN INR THERAPY RANGESSTANDARD DOSE: 2.0 - 3.0 Includes: PROPHYLAXIS for venous thrombosis, systemic embolization; TREATMENT for venous thrombosis and/or pulmonary embolus.HIGH RISK: Target INR is 2.5-3.5 for patients with mechanical heart valves.CALCIUM, [id number] 02:27:07 Test Item Value Reference Range Interpretation Comments CALCIUM IONIZED (BEAKER) (test 1.07 mmol/L 1.12-1.27 L code = 698) PH, BLOOD (BEAKER) (test code = 7.44 1810) PHENYTOIN LEVEL, [id number] 11:31:00 Test Item Value Reference Range Interpretation Comments PHENYTOIN (DILANTIN) (BEAKER) 13.6 ug/mL 10.0-20.0 (test code = 605) Sheet Metal Insulator ID - [id number] METABOLIC [id number] 06:02:00 Test Item Value Reference Range Interpretation [...] S NOT APPLICABLE FOR DIALYSIS PATIEN TS. Sheet Metal Insulator ID - DIEGO [facility]BC (HEMOGRAM ONLY)2021-06-10 05:18:00 [...] code = 413) SPUTUM CULTURE + GRAM [id number] 15:06:00 Test Item Value Reference Interpretation Comments Range CULTURE (BEAKER) METHICILLIN A 4+ Methicil fnumi (test code = 1095) RESISTANT resistant STAPHYLOCOCCUS [...] 0-5 epithelial (BEAKER) (test code = cells 794542) GRAM STAIN RESULT 4+ gram positive (BEAKER) (test code = cocci in chains, 309204) pairs and clusters 4+ Normal respiratory beatrice presentBASIC METABOLIC [id number] 04:10:00 Test Item Value Reference Range Interpretation [...] S NOT APPLICABLE FOR DIALYSIS PATIEN TS. Sheet Metal Insulator ID - CHANDA WCBC W/PLT COUNT & AUTO [id number] 04:08:00 Test Item Value Reference Range Interpretation [...] VID 12-26 HR CONTINUOUS MONITORING (VEEG)2021-06-08 11:09:00 [facility] : 1990 Sex: MSEBAS [facility] Report NAME: Maryanne Zavala DATE OF EE06/07/21- 06/08/21 DATE OF REPORT: 06/08/21 EE ACC: [id number] Start time: 10:02 AM on 06/07/21 Stop time: 9:17 AM on 06/08/21 ICD-10: R56.9 CPT Code: 51774 HISTORY: 31-year-old man with history of epilepsy, anxiety and depression, who was admitted for status epilepticus. MEDICATIONS THAT COULD AFFECT EEG: levetiracetam, phenytoin, precede TECHNICAL SUMMARY: This is a [facility] digital Video-EEG recorded with 32 input channels reviewed with bipolar and referential montages using the modified combinatorial system nomenclature. DESCRIPTION OF RECORD: At the beginning, the background was disorganized and primarily consisted of continuous low voltage generalized polymorphic delta with super imposed diffuse moderate-voltage beta activity. After 5:30 PM on 06/07/21, there were frequent epochs during which the background activity became higher voltage, with frequent eye blink, movement and myogenic artifacts, representing wakefulness. After 8:20 AM on 06/08/21 (extubation), waking background appeared which consisted of diffuse low-voltage beta with no sustained posterior dominant rhythm noted. VIDEO EVENTS: Event #1: At around 10:40 AM on 06/07, patient became intermittently agitated with non-rhythmic left hand shaking andleg kicking, accompanied by tachycardia. EEG during this event showed movement artifacts with no electrographic seizures noted. Event #2: At 8:29 AM on 06/08, patient started to have bobbing head movement, intermittent leg straightening and non-rhythmic shaking, lasting for 2 minutes. EEG during this event [...] Ortega M.D., Ph.D. Epilepsy/Neurophysiology Attending PHENYTOIN LEVEL, [id number] 10:37:00 Test Item Value Reference Range Interpretation Comments PHENYTOIN (DILANTIN) (BEAKER) 14.2 ug/mL 10.0-20.0 (test code = 605) Sheet Metal Insulator ID - [id number], CHEST, 1 VIEW, NON [id number] 09:28:00Reason for exam:->IntubatedShould this be performed at the bedside?->Yes [facility]ENTERName: MARYANNE ZAVALA : 1990 Sex: MFINAL REPORT HISTORY: Intubation COMPARISON: 06/07/2021 at 1429 hours FINDINGS: The endotracheal tube appears to have been removed. Nasogastric tube tip is in the region of the stomach. Patchy bibasilar airspace consolidation is similar in appearance and may reflect atelectasis or pneumonia. No pleural effusions or pneumothorax are identified. Heart shadow normal in size. Signed: Amparo Morrell MDReport Verified Date/Time: 06/08/2021 09:28:05 Reading Location: [address] Transitional Reading Room BASIC METABOLIC [id number] 03:40:00 Test Item Value Reference Range Interpretation [...] S NOT APPLICABLE FOR DIALYSIS PATIEN TS. Sheet Metal Insulator ID - CHANDA [id number] 03:40:00 Test Item Value Reference Range Interpretation Comments MAGNESIUM (BEAKER) (test code = 1.7 mg/dL 1.6-2.6 627) Sheet Metal Insulator ID - CHANDA [id number] 03:40:00 Test Item Value Reference Range Interpretation Comments PHOSPHORUS (BEAKER) (test code = 2.2 mg/dL 2.3-4.7 L 604) Sheet Metal Insulator ID - CHANDA WCBC W/PLT COUNT & AUTO [id number] 03:19:00 Test Item Value Reference Range Interpretation [...] (BEAKER) (test code = 2801) BLOOD GAS, [id number] 03:16:00 Test Item Value Reference Range Interpretation [...] 1819) 40.0 RAD, CHEST, 1 VIEW, NON [id number] 14:46:00Reason for exam:->R/O aspiration PNAShould this be performed at the bedside?->Yes [facility] 1990 Sex: MFINAL REPORT HISTORY: Aspiration pneumonia COMPARISON: 09/13/2018 FINDINGS: Mild airspaceconsolidation in the right perihilar region and left lung base concerning for pneumonia. No pleural effusions or pneumothorax. Heart shadow normal in size. Endotracheal tube tip is 4 cm proximal to thecarina. Nasogastric tube passes below the diaphragm, with the tip not imaged. Signed: Amparo Morrell Verified Date/Time: 06/07/2021 14:46:28 Reading Location: [address] Transitional Reading Room EEG W VID 12-26 HR CONTINUOUS MONITORING (VEEG) 2021-06-07 13:01:00Reason for exam:->status epilepticus [facility] : 1990 [facility] Report NAME: Maryanne Zavala DATE OF EE06/06/21- 06/07/21 DATE OF REPORT: 06/07/21 EE ACC: [id number] Start time: 9:41 PM on 06/06/21 Stop time: 10:02 AM on 06/07/21 ICD-10: R56.9 CPT Code: 20745 HISTORY: 31-year-old man with history of epilepsy, anxiety and depression, who was admitted for status epilepticus. MEDICATIONS THAT COULD AFFECT EEG: Propofol, Levetiracetam. TECHNICAL SUMMARY: This is a [facility] digital Video-EEG recorded with 32 input channels reviewed with bipolar and referential montages using the modified combinatorial system nomenclature. DESCRIPTION OF RECORD: During the maximal alertness, no posterior dominant rhythm was present. The background was disorganized and consisted of continuous low voltage generalized polymorphic delta with super imposed diffuse moderate-voltage beta activity. The background was not reactive to external stimuli. No organized sleep structures were seen. VIDEO EVENTS: No seizures or other events were seen. HYPE RVENLITATION: not done. PHOTIC STIMULATION: not done. ECG FINDINGS: Normal sinus rhythm. IMPRESSION:Abnormal Video EEG due to: - diffuse background slowing and disorganization, delta range with excessive beta, non-reactive CLINICAL CORRELATION: These findings are indicative of severe diffuse cerebral dysfunction/encephalopathy, which is nonspecific in etiology. Excessive beta can be due to medication effects (ex, benzodiazepine). There were no electrographic seizures or epileptiform discharges. Above findings were communicated with NeuroICU team at 9 AM on 06/07/21. Jamshid Campbell Neurophysiology Fellow I certify that I have personally reviewed the entire EEG with the fellow, edited the report and agree with the findings. Aleksandr Ortega M.D., Ph.D. Epilepsy/Neurophysiology Attending [id number] 11:44:00 Test Item Value Reference Range Interpretation Comments PROCALCITONIN (BEAKER) (test code = < ng/mL <0.05 3036) SEPSIS RISK (ng/mL)Low: 0.05-0.50Intermediate: 0.51-2.00High: >=2.01HIGH SENSITIVITY TROPONIN [id number] 11:38:00 Test Item Value Reference Range Interpretation Comments HIGH SENSITIVITY < pg/ml See_Comment [Automated message] TROPONIN I (test code = The system which [id number]) generated this result transmitted ref erence range: <=35. Th e reference range was not used to interpr et this result as normal/abnormal . Sheet Metal Insulator ID - DIEGO [facility] [employer] STAT High Sensitivity Troponin-I results should be used in conjunction with other diagnostic information such as ECG, clinical observations and information, and patient symptoms to aid in the diagnosis of [place].[id number] 11:23:00 Test Item Value Reference Range Interpretation Comments MAGNESIUM (BEAKER) (test code = 1.9 mg/dL 1.6-2.6 627) Sheet Metal Insulator ID - DIEGO MPHENYTOIN LEVEL, [id number] 05:21:00 Test Item Value Reference Range Interpretation Comments PHENYTOIN (DILANTIN) (BEAKER) 15.6 ug/mL 10.0-20.0 (test code = 605) Sheet Metal Insulator ID - DIEGO MCOMPREHENSIVE METABOLIC [id number] 04:26:00 Test Item Value Reference Range Interpretation [...] S NOT APPLICABLE FOR DIALYSIS PATIEN TS. Sheet Metal Insulator ID - DIEGO MCBC W/PLT COUNT & AUTO [id number] 04:03:00 Test Item Value Reference Range Interpretation [...] (BEAKER) (test code = 2801) BLOOD GAS, [id number] 03:46:00 Test Item Value Reference Range Interpretation [...] VID 12-26 HR CONTINUOUS MONITORING (VEEG)2020-09-30 13:05:00 [facility] : 1990 [facility] RE[facility] DATE OF STUDY: 09/30/2020DATE OF REPORT: 09/30/2020ACC: [id number]: [id number] time: 09/29/2020 @ 12:59Stop time: 09/30/2020 @ 12:59ICD-10: R56.9CPT Code: 62319 HISTORY: seizure disorder MEDICATIONS THAT COULD AFFECT [...] possibility of epilepsy. It the clinical suspicion ofepilepsy remains, consider additional EEG recordings. Joao Blum M.D., FACNSProfessor of NeurologyKaiser Permanente Santa Teresa Medical CenterDirector, [facility] Centerb Epilepsy [facility] Neurophysiology Lab [facility] METABOLIC [id number] 07:16:00 Test Item Value Reference Range Interpretation [...] S NOT APPLICABLE FOR DIALYSIS PATIEN TS. Sheet Metal Insulator ID - [id number] 07:16:00 Test Item Value Reference Range Interpretation Comments MAGNESIUM (BEAKER) (test code = 2.1 mg/dL 1.6-2.6 627) Sheet Metal Insulator ID - EDASICBC W/PLT COUNT & AUTO [id number] 06:35:00 Test Item Value Reference Range Interpretation [...] CONTINUOUS MONITORING (VEEG)2020-09-29 14:32:00Reason for exam:->Seizures capturing [facility] : 1990 [facility] REPORT Name: Maryanne Zavala ACC: [id number] DATE OF TEST: 09/28/20 - 09/29/20 DATE OF REPORT: 09/29/20 Start time/date: 11:46 AM 09/28/20 Stop time/date: 12:59 PM 09/29/20 ICD-10: R56.9 CPT Code: 69454 HISTORY: 30 y/o M s/p seizures x2. [...] and well regulated. Diffuse low voltage beta activitywas seen occasionally throughout the recording. Drowsiness was [...] No seizures or epileptiform discharges were seen. Everton Garcia M.D., Ph.D. Neurophysiology/Epilepsy Attending [facility] METABOLIC PANEL 2020-09-29 07:17:00 Test Item Value Reference Range Interpretation [...] S NOT APPLICABLE FOR DIALYSIS PATIEN TS. Sheet Metal Insulator ID - [id number] 07:17:00 Test Item Value Reference Range Interpretation Comments MAGNESIUM (BEAKER) (test code = 1.9 mg/dL 1.6-2.6 627) Sheet Metal Insulator ID - EDASICBC W/PLT COUNT & AUTO [id number] 06:25:00 Test Item Value Reference Range Interpretation [...] PERCENT (BEAKER) (test code = 2801) SARS-COV2/RT-PCR ([facility])2020-09-28 17:19:00 Test Item Value Reference Range Interpretation Comments SARS-COV2/RT-PCR (test Negative Not Detected, Negative, code = 5809989) See external report for linked test SARS-COV-[address] [facility] (test code = 1972469) Negative result for this test determines that [...] individuals suspected of COVID-19 by their healthcare provider.This test [...] justifying the authorization of the emergency use ofin vitro diagnostic tests for detection and/or diagnosis of COVID-19 is terminated under Section 564(b)(2) of the Act or the EUA is revoked under Section 564(g) of the Act.Fact Sheet for Healthcare Prov iders:https://www.[employer]/sites/default/files/product/documents/Fact_Sheet_HC _Axwcoojwc_Ltku_JVHI-CrO-6.pdfFact Sheet for Healthcare Patients:https://www.[employer]/sites/default/files/product/docume nts/Sxqe_Xeikk_Epyslaog_Wxlv_GYOF-QlM-7.pdfPerforming Laboratory:[facility].[place], [place] [address]LWPSW DRUG SCREEN, URINE 2020-09-28 16:44:00 Test Item Value Reference Range Interpretation [...] situations. Chain of custody not maintained. Some xncg-mwq-vrzgkpw medications, as well as adulterants, may cause inaccurate results. Clinical correlation should be applied. A more comprehensive drug screen or confirmation of a detected drug may be performed upon request.Sheet Metal Insulator ID - MAYRA RICHARD, HAND, 2 VIEWS, [id number] 14:06:00Reason for exam:->swelling and pain [facility] 1990 Sex: MFINAL REPORT RAD, HAND, 2 VIEWS, LEFT, RAD, WRIST, 2 VIEWS, LEFT CLINICAL INDICATION: swelling and pain TECHNIQUE: Two views of the left hand, two views of the left wrist COMPARISON: None FINDINGS: No fracture or dislocation. Joint spaces are normal. No focal soft tissue abnormality. IMPRESS ION:No evidence of acute osseous injury. Signed: Alondra Camejo Verified Date/Time: 09/28/2020 14:06:34 RAD, WRIST, 2 VIEWS, [id number] 14:06:00Reason for exam:->Swelling and pain [facility] : 1990 Sex: MFINAL REPORT RAD, HAND, 2 VIEWS, LEFT, RAD, WRIST, 2 VIEWS, LEFT CLINICAL INDICATION: swelling and pain TECHNIQUE: Two views of the left hand, two views of the left wrist COMPARISON: None FINDINGS: No fracture or dislocation. Joint spaces are normal. No focal soft tissue abnormality. IMPRESS ION:No evidence of acute osseous injury. Signed: Alondra Camejo Verified Date/Time: 09/28/2020 14:06:34 BASIC METABOLIC [id number] 05:25:00 Test Item Value Reference Range Interpretation [...] S NOT APPLICABLE FOR DIALYSIS PATIEN TS. Sheet Metal Insulator ID - ADMINHEPATIC FUNCTION [id number] 05:25:00 Test Item Value Reference Range Interpretation [...] (test code = 33 U/L 6-55 347) Sheet Metal Insulator ID - ADMINCBC W/PLT COUNT & AUTO [id number] 04:39:00 Test Item Value Reference Range Interpretation [...] PERCENT (BEAKER) (test code = 2801) BLOOD [id number] 18:00:00 Test Item Value Reference Range Interpretation Comments CULTURE (BEAKER) (test No growth in 5 days code = 1095) BLOOD [id number] 18:00:00 Test Item Value Reference Range Interpretation Comments CULTURE (BEAKER) (test No growth in 5 days code = 1095) SPUTUM CULTURE + GRAM [id number] 14:21:00 Test Item Value Reference Range Interpretation Comments CULTURE (BEAKER) 4+ Normal respiratory (test code = 1095) beatrice present GRAM STAIN RESULT 1+ gram positive rods (BEAKER) (test code = 1123) GRAM STAIN RESULT 1+ gram negative cocci (BEAKER) (test code = 92105) GRAM STAIN RESULT 2+ gram positive cocci (BEAKER) (test code = in chains 83056) GRAM STAIN RESULT 1+ gram positive cocci (BEAKER) (test code = in clusters [id number]) RAD, CHEST, 1 VIEW, NON [id number] 07:27:00Reason for exam:->post intubationShould this be performed at the bedside?->YesFINAL REPORT HISTORY : post intubation. Comparison: 09/11/2018 Comment: Single p ortable view of the chest was obtained. The cardiac silhouette size is within normal limits. No pneumothorax or pleural effusion is seen. There is some nonspecific patchy left basilar airspace disease.The right-sided internal jugular venous catheter as well as endotracheal tube are no longer visualized on the visualized portions of the x-ray. No lytic or blastic abnormalities are appreciated. Signed: Stefano Dueñ[facility] Verified Date/Time: 09/13/2018 07:27:51 Reading Location: [facility] Radiology Reading Room [id number] 04:44:00 Test Item Value Reference Range Interpretation Comments PHOSPHORUS (BEAKER) (test code = 2.9 mg/dL 2.3-4.7 604) Check Serum Phosphorus level 4 hours after IV phosphorus replacement or 8 hours after PO replacementcompleted.[id number] 04:44:00 Test Item Value Reference Range Interpretation Comments MAGNESIUM (BEAKER) (test code = 2.2 mg/dL 1.6-2.6 627) Check Serum Phosphorus level 4 hours after IV phosphorus replacement or 8 hours after PO replacementcompleted.BASIC METABOLIC [id number] 04:44:00 Test Item Value Reference Range Interpretation [...] after PO replacementcompleted.CBC W/PLT COUNT & AUTO [id number] 04:19:00 Test Item Value Reference Range Interpretation [...] 0-1 PERCENT (BEAKER) (test code = 2801) [id number] 18:41:00 Test Item Value Reference Range Interpretation Comments POTASSIUM (BEAKER) (test code = 3.9 meq/L 3.5-5.1 379) Check Serum Potassium level 2 hours after oral potassium replacement completed or 30 min after intravenous potassium replacement.[id number] 18:41:00 Test Item Value Reference Range Interpretation Comments MAGNESIUM (BEAKER) (test code = 2.9 mg/dL 1.6-2.6 H 627) Check Serum Potassium level 2 hours after oral potassium replacement completed or 30 min after intravenous potassium replacement.EEG MONITORING WITH VIDEO RECORDING EACH 24 [id number] 14:34:00billing for 09/12 AMDATE OF REPORT: 09/12/2018 ACC: [id number] EE Start time: 09/11 at 0920 AM Stop time: 09/12 at 11:11 AM ICD-10: R56.9 CPT Code: 65529 HISTORY: 28 year old male p/w increased seizure frequency in the setting of psychiatric issues and suicidal ideation. MEDICATIONS THAT COULD AFFECT EEG: Dexmedetomidine, propofol, carbamazepine, lamotrigine, phenytoin TECHNICAL SUMMARY: This is a digital video EEG recorded with 32 input channels reviewed with bipolar and referential montages using the modifiedcombinatorial system nomenclature. Descriptors used for the background, any periodic patterns, and any sporadic discharges per ACNS 2012 Standardized ICU EEG Nomenclature. DESCRIPTION OF RECORD: BACKGROUND: There was a symmetric, reactive to eye opening, and well regulated posterior dominant rhythm of9-10 Hz. The anterior to posterior gradient was preserved. There was superimposed low voltage high frequency beta activity seen diffusely. Drowsiness was characterized by alpha attenuation. EKG artifact is seen throughout the recording. SLEEP: N1, N2 and REM sleep were recorded with no localizing abnor malities. HYPERVENTILATION: Hyperventilation was not performed. PHOTIC STIMULATION: Photic stimulation was not performed. EVENTS: None ELECTROCARDIOGRAM: A single lead EKG showed normal rate, rhythm, and appearance. IMPRESSION: This is a normal continuous video EEG that captures wakefulness and sleep.There are no epileptiform discharges or electrographic seizures. Rosalio Trujillo MD Neurophysiology Fellow Davis Cintron MD, PhD Attending Neurophysiologist [facility] [id number] 12:15:00 Test Item Value Reference Range Interpretation Comments MAGNESIUM (BEAKER) (test code = 1.9 mg/dL 1.6-2.6 627) Check Serum Phosphorus level 4 hours after IV phosphorus replacement or 8 hours after PO replacementcompleted.Check Serum Potassium level 2 hours after oral potassium replacement completed or 30 min after intravenous potassium replacement.[id number] 12:15:00 Test Item Value Reference Range Interpretation Comments PHOSPHORUS (BEAKER) (test code = 2.0 mg/dL 2.3-4.7 L 604) Check Serum Phosphorus level 4 hours after IV phosphorus replacement or 8 hours after PO replacementcompleted.Check Serum Potassium level 2 hours after oral potassium replacement completed or 30 min after intravenous potassium replacement.[id number] 12:14:00 Test Item Value Reference Range Interpretation Comments POTASSIUM (BEAKER) (test code = 3.6 meq/L 3.5-5.1 379) Check Serum Phosphorus level 4 hours after IV phosphorus replacement or 8 hours after PO replacementcompleted.Check Serum Potassium level 2 hours after oral potassium replacement completed or 30 min after intravenous potassium replacement.CALCIUM, [id number] 11:49:00 Test Item Value Reference Range Interpretation Comments CALCIUM IONIZED (BEAKER) (test 1.09 mmol/L 1.12-1.27 L code = 698) PH, BLOOD (BEAKER) (test code = 7.46 1810) Check serum Ionized Calcium level after 4 hours after IV Calcium replacement. URINE [id number] 08:18:00 Test Item Value Reference Range Interpretation Comments CULTURE (BEAKER) (test code = 1095) No growth [id number] 03:59:00 Test Item Value Reference Range Interpretation Comments PHOSPHORUS (BEAKER) (test code = 2.5 mg/dL 2.3-4.7 604) Check Serum Phosphorus level 4 hours after IV phosphorus replacement or 8 hours after PO replacementcompleted.[id number] 03:59:00 Test Item Value Reference Range Interpretation Comments MAGNESIUM (BEAKER) (test code = 2.1 mg/dL 1.6-2.6 627) Check Serum Phosphorus level 4 hours after IV phosphorus replacement or 8 hours after PO replacementcompleted.BASIC METABOLIC [id number] 03:59:00 Test Item Value Reference Range Interpretation [...] after PO replacementcompleted.CBC W/PLT COUNT & AUTO [id number] 03:41:00 Test Item Value Reference Range Interpretation [...] PERCENT (BEAKER) (test code = 2801) POCT-GLUCOSE [id number] 23:55:00 Test Item Value Reference Range Interpretation Comments POC-GLUCOSE METER 94 mg/dL 70-[address] [facility] 67[address] (MAXIMINO) (test code = [place] [address] 1538) [id number] 18:08:00 Test Item Value Reference Range Interpretation Comments POTASSIUM (MAXIMINO) (test code = 3.4 meq/L 3.5-5.1 L 379) Check Serum Potassium level 2 hours after oral potassium replacement completed or 30 min after intravenous potassium replacement.EEG MONITORING WITH VIDEO RECORDING EACH 24 [id number] 09:23:00DATE OF REPORT: 09/11/2018ACC: [id number]: art time: 09/10 at 15:05Stop time: 09/11 at 09:20 AMICD- 10: R56.9CPT Code: 36056 HISTORY: 28 yo male with h/o seizures [...] of generalized 4-7 Hz and intermixed 1.3-3 Hz.There is superimposed generalized 18-22 Hz activity up [...] slowing is consistent with moderate degree of encephalopathy.The excessive beta activity is likely secondary to medication effect.An EEG without epileptiform discharges does not exclude the possibility of epilepsy. It the clinical suspicion of epilepsy remains, consider additional EEG recordings. Adán John MDNeurophysiology Fellow Joao Blum M.D.,FACNSProfessor of NeurologyKaiser Permanente Santa Teresa Medical CenterDirector, [facility] Epilepsy [facility] Neurophysiology Lab RAD, CHEST, 1 VIEW, NON [id number] 07:32:00Reason for exam:->post intubationShould this be performed at the bedside?->YesFINAL REPORT CLINICAL HISTORY: post intubation TECHNIQUE: 1 view of the chest. COMPARISON: 09/10/2018 IMPRESSION: The ETT projects 4.5 cm above the raghav, right central line near the cavoatrial junction, with a new NGT below the diaphragm. There is bibasilar atelectasis. There isno significant appearing pleural fluid. The cardiomediastinal silhouette is magnified by technique. Signed: Kody Vuong MDReport Verified Date/Time: 09/11/2018 07:32:46 Reading Location: [address] Reading Room POCT- GLUCOSE [id number] 06:30:00 Test Item Value Reference Range Interpretation Comments POC-GLUCOSE METER 111 mg/dL 70-[address] [facility] [address] (BEAKER) (test code = [facility] Marla [facility] 1538) [address] BASIC METABOLIC [id number] 06:06:00 Test Item Value Reference Range Interpretation [...] PATIEN TS. CBC W/PLT COUNT & AUTO [id number] 03:47:00 Test Item Value Reference Range Interpretation [...] (BEAKER) (test code = 2801) BLOOD GAS, [id number] 03:32:00 Test Item Value Reference Range Interpretation [...] (test code = 1819) 40.0 % POCT-GLUCOSE [id number] 01:01:00 Test Item Value Reference Range Interpretation Comments POC-GLUCOSE METER 91 mg/dL 70-[address] [facility] [address] (BEAKER) (test code = [place] Gutiérrez [facility] [address] 1538) TROPONIN [id number] 17:18:00 Test Item Value Reference Range Interpretation [...] neurological disease, and persistent tachyarrhythmia.EEG AWAKE AND [id number] 15:50:00 Reason for exam:->Status epilepticus, c EEG for evaluation of subclinical seizures Should this beperformed at the bedside?->YesDATE OF REPORT: 09/10/2018ACC: [id number]: [id number] time: 14:47Stop time: 15:04ICD-10: R56.9CPTCode: 85943 HISTORY: 28 yo male with h/o seizures [...] in coma and sleep due to: 1. M oderate generalized slowing 2. Excessive generalized beta activity. [...] Joao Blum M.D., FACNSProfessor of NeurologyKaiser Permanente Santa Teresa Medical CenterDirector, [facility] Epilepsy Center D GAS, [id number] 12:32:00 Test Item Value Reference Range Interpretation [...] 1819) 40.0 % RAD, ABDOMEN/KUB, 1 VIEW [id number] 12:12:00Reason for exam:->corpakShould this be performed at the bedside?->YesFINAL REPORT AP abdomen, three images HISTORY: Feeding tube COMPARISON: 11/01/2015 IMPRESSION:Feeding tube present with tip in abdomen. Bowel gas pattern appears grossly nonobstructive. Signed: Edgardo Guzman Verified Date/Time: 09/10/2018 12:12:56 Reading Location: [address] Ortho Consult Reading Room , CHEST, 1 VIEW, NON [id number] 10:40:00Reason for exam:->post intubationShould this be performed at the bedside?->YesFINAL REPORT AP chest HISTORY: Intubation COMPARISON: None IMPRESSION:Endotrache al tube in satisfactory position. Right IJ central venous catheter at mid SVC. Heart size normal. Mild perihilar atelectasis. Lungs otherwise clear. No pneumothorax. Signed: Edgardo Guzman Verified Date/Time: 09/10/2018 10:40:47 Reading Location: [address] Ortho Consult Reading Room Electr onically signed by: EDGARDO GUZMAN M.D. on 09/10/2018 10:40 AMTROPONIN [id number] 09:21:00 Test Item Value Reference Range Interpretation [...] failure, acidosis, acute neurological disease, and persistent tachyarrhythmia.[id number] 09:19:00 Test Item Value Reference Range Interpretation Comments CARBAMAZEPINE LEVEL (BEAKER) (test 2.2 ug/mL 4.0-12.0 L code = 696) PHENYTOIN LEVEL, [id number] 09:18:00 Test Item Value Reference Range Interpretation Comments PHENYTOIN (DILANTIN) (BEAKER) 10.8 ug/mL 10.0-20.0 (test code = 605) [id number] 09:03:00 Test Item Value Reference Range Interpretation Comments PARTIAL THROMBOPLASTIN TIME 27.5 seconds 22.5-36.0 (BEAKER) (test code = 760) PROTHROMBIN [id number] 09:02:00 Test Item Value Reference Range Interpretation Comments PROTIME (BEAKER) (test code = 14.6 seconds 11.7-14.7 759) INR (BEAKER) (test code = 370) 1.1 <=5.9 RECOMMENDED COUMADIN/WARFARIN INR THERAPY RANGESSTANDARD DOSE: 2.0 - 3.0 Includes: PROPHYLAXIS for venous thrombosis, systemic embolization; TREATMENT for venous thrombosis and/or pulmonary embolus.HIGH RISK: Target INR is 2.5-3.5 for patients with mechanical heart valves.PLATELET [id number] 08:53:00 Test Item Value Reference Range Interpretation Comments PLATELET COUNT (BEAKER) (test 184 K/CU MM 150-450 code = 756) BASIC METABOLIC [id number] 07:07:00 Test Item Value Reference Range Interpretation [...] 29-200 H code = 380) BASIC METABOLIC [id number] 05:19:00 Test Item Value Reference Range Interpretation [...] U/L 29-200 H code = 380) POCT-GLUCOSE [id number] 17:02:00 Test Item Value Reference Range Interpretation Comments POC-GLUCOSE METER 93 mg/dL 70-[address] [facility] [address] (BEAKER) (test code = [place] [address] 1538) [id number] 04:54:00 Test Item Value Reference Range Interpretation Comments MAGNESIUM (BEAKER) (test code = 2.1 mg/dL 1.6-2.6 627) BASIC METABOLIC [id number] 04:54:00 Test Item Value Reference Range Interpretation [...] H code = 380) EEG AWAKE AND [id number] 16:50:00Reason for exam:->seizure disorder Neurophysiology Electroencephalogram Report DATE OF REPORT: 08/10/18Date(s) of Study: 08/10/2018ACC: [id number]: [id number] time: 1517 hrsStop time: 1537 hrsICD-10: R56.9 Unspecified ConvulsionsCPT Code: 87696 EEG: awake and drowsy <40 min HISTORY: [...] Najera MD, MSClinical Neurophysiology/Epilepsy Attending [facility] Neurophysiology Service URINALYSIS W/ [id number] 05:20:00 Test Item Value Reference Range Interpretation [...] 0 /HPF SOURCE(BEAKER) (test code = 2795) [id number] 03:17:00 Test Item Value Reference Range Interpretation Comments CARBAMAZEPINE LEVEL (BEAKER) (test < ug/mL 4.0-12.0 L code = 696) [id number] 02:33:00 Test Item Value Reference Range Interpretation Comments PHOSPHORUS (BEAKER) (test code = 2.8 mg/dL 2.3-4.7 604) [id number] 02:33:00 Test Item Value Reference Range Interpretation Comments MAGNESIUM (BEAKER) (test code = 2.2 mg/dL 1.6-2.6 627) BASIC METABOLIC [id number] 02:33:00 Test Item Value Reference Range Interpretation [...] APPLICABLE FOR DIALYSIS PATIEN TS. HEPATIC FUNCTION [id number] 02:33:00 Test Item Value Reference Range Interpretation [...] U/L 29-200 H code = 380) C-REACTIVE [id number] 02:33:00 Test Item Value Reference Range Interpretation Comments C-REACTIVE PROTEIN (BEAKER) (test 0.45 mg/dL 0.00-0.50 code = 676) LACTIC ACID, VENOUS, WHOLE [id number] 02:26:00 Test Item Value Reference Range Interpretation Comments LACTATE BLOOD VENOUS 1.0 mmol/L 0.5-2.2 Specime n slightly (2) (BEAKER) (test hemolyzed code = 2872) Effective 03/18/2016: Units/Reference Range ChangeNew: 0.5-2.2 mmol/L Previous: 5- 20 mg/dLCBC W/PLT COUNT & AUTO [id number] 02:05:00 Test Item Value Reference Range Interpretation [...] (BEAKER) (test code = 2801) POCT-BLOOD GASES, [id number] 01:50:00 Test Item Value Reference Range Interpretation Comments TEMP, CELSIUS-POC 37.0 (BEAKER) (test code = 1834) FIO2-POC (BEAKER) TESTED AT [facility] [address] (test code = 1835) [facility] [place] [address] PH, ARTERIAL-POC 7.396 7.350-7.450 (BEAKER) (test code = 1836) PCO2, ARTERIAL-POC 35.3 mm Hg 35.0-45.0 (BEAKER) (test code = 1837) PO2, ARTERIAL-POC 104.0 mm Hg 80.0-90.0 H (AKER) (test code = 1838) SO2, ARTERIAL-POC 98.0 % 96.0-97.0 H ([facility]) (test code = 1839) HCO3, ARTERIAL-POC 21.7 meq/L 21.0-29.0 (BEAKER) (test code = 1840) BASE EXCESS, -3.0 meq/L -2.0-3.0 L ARTERIAL-POC (BEAKER) (test code = 1841) [id number] 01:50:00 Test Item Value Reference Range Interpretation Comments POC-SODIUM ([facility]) 140 meq/L 135-148 TESTED [place] [address] (test code = 1542) [facility] [address] [id number] 01:50:00 Test Item Value Reference Range Interpretation Comments POC-POTASSIUM 3.4 meq/L 3.6-5.5 L TESTED AT [place] [address] ([facility]) (test code [facility] [address] = 1540) [id number] 01:50:00 Test Item Value Reference Range Interpretation Comments POC-GLUCOSE ([facility]) 105 mg/dL 70-110 TESTED AT [place] [address] (test code = 1855) [facility] [address] POCT-CALCIUM [id number] 01:50:00 Test Item Value Reference Range Interpretation Comments POC-CALCIUM IONIZED 1.15 mmol/L 1.12-1.27 TESTED A [place] [address] ([facility]) (test code = [facility] 153) [address] [id number] 01:50:00 Test Item Value Reference Range Interpretation Comments POC-HEMATOCRIT 35 % 40-50 L TESTED AT [place] [address] ([facility]) (test code = [facility] [address] 1851) [id number] 01:50:00 Test Item Value Reference Range Interpretation Comments POC-HEMOGLOBIN 11.9 g/dL 13.0-16.8 L TESTED AT [place] [address] ([facility]) (test code [facility] = 1856) [id number] AT [place] [address] [facility] [address] POCT-LACTIC ACID, [id number] 01:49:00 Test Item Value Reference Range Interpretation Comments POC-LACTIC ACID, 0.9 mmol/L 0.4-1.3 TESTED AT [facility] [address] ARTERIAL (BEAKER) [facility] (test code = 2804) [address]
[2023-01-10 11:29] LABS: Absolute Lymphocytes (CBC) 2.4 K/uL (0.7-4.9); Hematocrit 44.1 % (39.6-49.0); Lymphocytes % 28.8 % (15.3-44.8); MCV 89.8 fL (80-100); MPV 8.7 fL (7.6-11.3); RBC Red Blood Cell Count 4.91 M/uL (4.33-5.43)
[2023-01-10] MEDS ORDERED: LORazepam 2 MG/ML VIAL ONE (11:29)
[2023-01-10] MEDS ORDERED: NA CHLORIDE 0.9% 1,000 ML ONE (11:29)
[2023-01-10] MEDS ORDERED: LEVETIRACETAM 500 MG/5 ML VIAL IV ONE (11:34)
[2023-01-10] MEDS ORDERED: NA CHLORIDE 0.9% 100 ML ONE (11:35)
[2023-01-10 11:43] LABS: Potassium 3.5 mmol/L (3.5-5.1)
[2023-01-10] MEDS ORDERED: TOPIRAMATE 25 MG TAB PO ONE (12:00)
[2023-01-10] MEDS ORDERED: lamoTRIgine 100 MG TAB PO ONE (12:00)
--- NOTE | 2023-01-10 13:54 | EDPHYS ---
Physician Documentation [facility] Name: Alfie Zavala Age: 32 yrs Sex: Male : 1990 Arrival Date: 01/10/2023 Time: 11:00 Bed 14 Private MD: ED Physician Aba Rodriguez HPI: 01/10 14:23 This 32 yrs old Male presents to ER via Ambulatory with complaints of Doesn't kb Feel Right. 14:23 Seizure Hx: Original onset: longstanding. Associated injury: The patient did not suffer kb any apparent associated injury. The patient has experienced similar episodes in the past. The patient has not recently seen a physician. Patient presents because he feels like he is going to have a seizure. Denies any seizure activity prior to arrival.. Historical: - Allergies: 11:45 No Known Allergies; bp - Home Meds: 11:12 Zolpidem Tartrate Oral bedtime [Active]; Diazepam Oral PRN [Active]; venlafaxine 150 mg aa5 oral cp24 BID [Active]; gabapentin 300 mg oral cap 3 times per day [Active]; topiramate 50 mg oral tab daily [Active]; lamotrigine 200 mg oral tab 2 times per day [Active]; Sumatriptan 50mg PRN Sub-Q [Active]; - PMHx: 11:07 Depression; Headaches; Seizures; status epilepticus; aa5 - Immunization history:: Adult Immunizations up to date. - Social history:: Smoking status: Patient/guardian denies using tobacco, Patient uses alcohol, occasionally. street drugs, marijuana. ROS: 14:23 Constitutional: Negative for fever, chills, and weight loss. kb 14:23 Neuro: Positive for weakness, feels like he is going to have a seizure. 14:23 All other systems are negative. Exam: 11:42 ECG was reviewed by the Attending Physician. kb 14:22 Constitutional: This is a well developed, well nourished patient who is awake, alert, kb and in no acute distress. Head/Face: Normocephalic, atraumatic. ENT: Moist Mucous membranes Respiratory: Respirations even and unlabored. No increased work of breathing. Talking in full sentences Abdomen/GI: Soft, non-tender. No distention Skin: Warm, dry with normal turgor. Normal color. MS/ Extremity: Pulses equal, no cyanosis. Neurovascular intact. Full, normal range of motion. Neuro: Awake and alert, GCS 15, oriented to person, place, time, and situation. Moves all extremities. Normal gait. 14:22 Cardiovascular: Rate: tachycardic, Rhythm: regular, Pulses: no pulse deficits are appreciated, Heart sounds: normal. Vital Signs: 11:07 BP 149 / 99; Pulse 120; Resp 24 S; Temp 98.0(TE); Pulse Ox 99% on R/A; Weight 119.29 kg aa5 (R); Height 5 ft. 11 in. (180.34 cm) (R); 11:30 BP 130 / 90; Pulse 109; Resp 18; Pulse Ox 98% ; bp 12:30 BP 107 / 67; Pulse 134; Resp 20; Pulse Ox 99% ; bp 14:30 BP 132 / 95; Pulse 108; Resp 16; Pulse Ox 99% ; bp 16:30 BP 114 / 82; Pulse 109; Resp 16; Pulse Ox 98% ; bp 11:07 Body Mass Index 36.68 (119.29 kg, 180.34 cm) aa5 MDM: 11:10 Patient medically screened. kb 13:54 Data reviewed: vital signs, nurses notes. Consideration of Admission/Observation kb Patient was admitted/placed on observation. Management of patient was discussed with the following: Hospitalist: Dr Garza accepts pt for admission. Care significantly affected by the following Social Determinants of Health: Poor access to healthcare and/or lack of insurance. Counseling: I had a detailed discussion with the patient and/or guardian regarding: the historical points, exam findings, and any diagnostic results supporting the discharge/admit diagnosis, lab results, the need for further work-up and treatment in the hospital. 14:19 Differential diagnosis: seizure, Anxiety. Management of patient was discussed with the kb following: Dr. Rodriguez, MARGARTIA who recommends admission. External Records Reviewed: Inpatient record: Inpatient note from Dr. Christensen reviewed from previous admission. ED course: Patient is a 32-year-old male who presents because he feels like he is going to have a seizure. Patient states he has been out of his medications for 2 weeks. On exam patient is awake alert and oriented x4, respirations even and unlabored, lungs clear bilaterally, no neurodeficits. Serum labs and EKG performed and reviewed. Patient had 1 seizure that was witnessed during stay. Patient reports he is having his aura and believes he is also having absent seizures. Will admit to the hospitalist.. 01/10 11:11 Order name: CBC with Diff kb 01/10 11:11 Order name: Basic Metabolic Panel kb 01/10 11:32 Order name: CBC with Automated Diff; Complete Time: 11:41 EDMS 01/10 11:43 Order name: Basic Metabolic Panel; Complete Time: 11:50 EDMS 01/10 14:07 Order name: SARS RAPID; Complete Time: 14:46 aa5 01/10 11:11 Order name: IV Start; Complete Time: 11:27 kb 01/10 11:11 Order name: EKG; Complete Time: 11:12 kb 01/10 11:11 Order name: EKG - Nurse/Tech; Complete Time: 11:27 kb EC:42 Rate is 128 beats/min. Rhythm is regular. QRS [place] is Normal. MT interval is normal at kb 126 msec. QRS interval is normal at 80 msec. QT interval is normal at 438 msec. Administered Medications: 11:25 Drug: Ativan (LORazepam) 2 mg Route: IVP; Site: right forearm; bp 14:43 Follow up: Response: No adverse reaction bp 11:25 Drug: NS 0.9% 1000 ml Route: IV; Rate: 1000 ml; Site: right forearm; bp 14:43 Follow up: IV Status: Completed infusion; IV Intake: 1000ml bp 11:30 Drug: Keppra (levETIRAcetam) 1000 mg Route: IV; Rate: calculated rate; Site: right bp forearm; 14:43 Follow up: IV Status: Completed infusion; IV Intake: 100ml bp 11:50 Drug: LaMICtal (lamoTRIgine) 200 mg Route: PO; bp 14:43 Follow up: Response: No adverse reaction bp 11:50 Drug: Topamax (topiramate) 50 mg Route: PO; bp 14:43 Follow up: Response: No adverse reaction bp Disposition Summary: 01/10/23 13:53 Hospitalization Ordered Hospitalization Status: Observation kb Provider: Kay Garza Location: Telemetry/MedSurg (observation) kb Condition: Stable kb Problem: new kb Symptoms: are unchanged kb Bed/Room Type: Standard Room Assignment: 401(01/10/23 16:33) ren Diagnosis - Epilepsy, unspecified, not intractable, without status epilepticus kb Forms: - Medication Reconciliation Form kb - SBAR form kb Addendum: 01/12/2023 07:15 Co-signature as Attending Physician, Aba Rodriguez MD I reviewed the patient's care r n provided by the Advanced Practice Provider and agree with the diagnosis and treatment plan. Signatures: Dispatcher [employer] EDCarlita Rangel, BUILDING SPECIALIST-C BUILDING SPECIALIST-Ckb Aba Rodriguez MD MD rn Calderon, Audri, RN RN aa5 Thomas Laguerre RN RN Tereza Kevin Corrections: (The following items were deleted from the chart) 01/10 16:33 13:53 kb ren
--- NOTE | 2023-01-10 13:54 | ER ---
Nurse's Notes [facility] Name: Alfie Zavala Age: 32 yrs Sex: Male : 1990 Arrival Date: 01/10/2023 Time: 11:00 Bed 14 Private MD: Diagnosis: Epilepsy, unspecified, not intractable, without status epilepticus Presentation: 01/10 11:07 Chief complaint: Patient states: "I have been out of my medications for 2 weeks now". aa5 Pt states "I've been having panic attacks and I haven't been sleeping much and I feel like I am going to have a seizure". 11:07 Onset of symptoms was December 2022. aa5 11:07 Acuity: KEN 3 aa5 11:07 Method Of Arrival: Ambulatory aa5 11:07 Coronavirus screen: At this time, the client does not indicate any symptoms associated aa5 with coronavirus-19. Ebola Screen: Patient denies travel to an Ebola-affected area in the 21 days before illness onset. Initial Sepsis Screen: Does the patient meet any 2 criteria? HR > 90 bpm. Does the patient have a suspected source of infection? No. Patient's initial sepsis screen is negative. Risk Assessment: Do you want to hurt yourself or someone else? Patient reports no desire to harm self or others. Triage Assessment: 11:15 General: Appears distressed, obese, Behavior is cooperative, appropriate for age, bp anxious. Pain: Denies pain. EENT: No deficits noted. Neuro: Reports TREMORS. Cardiovascular: No deficits noted. Respiratory: No deficits noted. GI: No signs and/or symptoms were reported involving the gastrointestinal system. : No signs and/or symptoms were reported regarding the genitourinary system. Derm: No deficits noted. Musculoskeletal: No deficits noted. Historical: - Allergies: 11:45 No Known Allergies; bp - Home Meds: 11:12 Zolpidem Tartrate Oral bedtime [Active]; Diazepam Oral PRN [Active]; venlafaxine 150 mg aa5 oral cp24 BID [Active]; gabapentin 300 mg oral cap 3 times per day [Active]; topiramate 50 mg oral tab daily [Active]; lamotrigine 200 mg oral tab 2 times per day [Active]; Sumatriptan 50mg PRN Sub-Q [Active]; - PMHx: 11:07 Depression; Headaches; Seizures; status epilepticus; aa5 - Immunization history:: Adult Immunizations up to date. - Social history:: Smoking status: Patient/guardian denies using tobacco, Patient uses alcohol, occasionally. street drugs, marijuana. Screenin:36 [facility] ED Fall Risk Assessment (Adult) History of falling in the last 3 months, bp including since admission No falls in past 3 months (0 pts). Abuse screen: Denies threats or abuse. Denies injuries from another. Nutritional screening: No deficits noted. Tuberculosis screening: No symptoms or risk factors identified. Assessment: 11:15 General: SEE TRIAGE NOTE. bp 11:30 Reassessment: PT EXHIBITING SZ LIKE ACTIVITY, RESOLVED <1 MIN, NO POST-ICTAL PERIOD. bp PROVIDER NOTIFIED AND AT BEDSIDE. 12:30 Reassessment: PT CONTINUING TO EXHIBIT OCCASIONAL RHYTHMIC SHAKING EPISODES WHILE bp RETAINING VOLUNTARY REFLEXES AND NO FOLLOWING POST ICTAL PERIOD. 14:30 Reassessment: No changes from previously documented assessment. Patient and/or family bp updated on plan of care and expected duration. Pain level reassessed. 16:57 Reassessment: ADMIT COMPLETE FOR RM 401. bp Vital Signs: 11:07 BP 149 / 99; Pulse 120; Resp 24 S; Temp 98.0(TE); Pulse Ox 99% on R/A; Weight 119.29 kg aa5 (R); Height 5 ft. 11 in. (180.34 cm) (R); 11:30 BP 130 / 90; Pulse 109; Resp 18; Pulse Ox 98% ; bp 12:30 BP 107 / 67; Pulse 134; Resp 20; Pulse Ox 99% ; bp 14:30 BP 132 / 95; Pulse 108; Resp 16; Pulse Ox 99% ; bp 16:30 BP 114 / 82; Pulse 109; Resp 16; Pulse Ox 98% ; bp 11:07 Body Mass Index 36.68 (119.29 kg, 180.34 cm) aa5 ED Course: 11:00 Patient arrived in ED. rg4 11:05 Carlita Zuniga FNP-C is PHCP. kb 11:05 Aba Rodriguez MD is Attending Physician. kb 11:07 Arm band placed on. aa5 11:10 Triage completed. aa5 11:13 Thomas Laguerre, ESCOBAR is Primary Nurse. bp 11:20 Inserted saline lock: 20 gauge in right forearm, using aseptic technique. Blood bp collected. 11:36 Patient has correct armband on for positive identification. Bed in low position. Call bp light in reach. Side rails up X2. quality assurance monitor on. Pulse ox on. 11:56 CBC with Diff Sent. bp 11:56 Basic Metabolic Panel Sent. bp 13:53 Kay Garza MD is Hospitalizing Provider. kb 16:57 No provider procedures requiring assistance completed. Patient admitted, IV remains in bp place. Administered Medications: 11:25 Drug: Ativan (LORazepam) 2 mg Route: IVP; Site: right forearm; bp 14:43 Follow up: Response: No adverse reaction bp 11:25 Drug: NS 0.9% 1000 ml Route: IV; Rate: 1000 ml; Site: right forearm; bp 14:43 Follow up: IV Status: Completed infusion; IV Intake: 1000ml bp 11:30 Drug: Keppra (levETIRAcetam) 1000 mg Route: IV; Rate: calculated rate; Site: right bp forearm; 14:43 Follow up: IV Status: Completed infusion; IV Intake: 100ml bp 11:50 Drug: LaMICtal (lamoTRIgine) 200 mg Route: PO; bp 14:43 Follow up: Response: No adverse reaction bp 11:50 Drug: Topamax (topiramate) 50 mg Route: PO; bp 14:43 Follow up: Response: No adverse reaction bp Medication: 16:57 VIS not applicable for this client. bp Intake: 14:43 IV: 100ml; Total: 100ml. bp 14:43 IV: 1000ml; Total: 1100ml. bp Outcome: 13:53 Decision to Hospitalize by Provider. kb 16:56 Admitted to Med/surg accompanied by tech, via wheelchair, room 401, Report called to bp ABDIAZIZ CODY 16:56 Condition: stable 16:56 Instructed on the need for admit. 17:19 Patient left the ED. bp Signatures: Carlita Zuniga FNP-C FNP-Ckb Calderon, Audri, RN RN aa5 Rica [id number] Thomas Laguerre, RN RN bp
[2023-01-10 14:41] LABS: SARS-CoV-2 Antigen Rapid Res Negative (Negative)
[2023-01-10] MEDS ORDERED: ACETAMINOPHEN 500 MG TAB PO PRN (14:54)
[2023-01-10] MEDS ORDERED: MORPHINE 2 MG/ML SYR IV PRN (14:54)
[2023-01-10] MEDS ORDERED: ONDANSETRON 4 MG/2 ML VIAL IV PRN (15:01)
[2023-01-10] MEDS ORDERED: POTASSIUM 25 MEQ EFFERV TAB ONE (16:41)
[2023-01-10] MEDS: NA CHLORIDE 0.9% 1,000 ML IV SCH (18:09)
[2023-01-10] MEDS: PHENYTOIN ER 100 MG CAP PO SCH ×2 (18:10→20:27)
[2023-01-10] MEDS ORDERED: LORazepam 2 MG/ML VIAL IV PRN (18:26)
[2023-01-10] MEDS: LORazepam 2 MG/ML VIAL IV PRN (19:57)
[2023-01-10] MEDS: levETIRAcetam 500 MG in NA CHLORIDE 0.9% 100 ML IV SCH (19:59)
[2023-01-11] MEDS: NA CHLORIDE 0.9% 1,000 ML IV SCH ×3 (02:36→22:00)
[2023-01-11] MEDS: levETIRAcetam 500 MG in NA CHLORIDE 0.9% 100 ML IV SCH ×3 (03:18→20:51)
[2023-01-11] MEDS: LORazepam 2 MG/ML VIAL IV PRN ×4 (04:54→20:51)
[2023-01-11 05:48] LABS: Absolute Lymphocytes (CBC) 2.1 K/uL (0.7-4.9); Hematocrit 40.2 % (39.6-49.0); Lymphocytes % 31.9 % (15.3-44.8); MCV 89.4 fL (80-100); MPV 8.6 fL (7.6-11.3)
[2023-01-11 06:05] LABS: Albumin 3.8 g/dL (3.4-5.0); Bilirubin Total 0.8 mg/dL (0.2-1.0)
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
[2023-01-11] MEDS ORDERED: INFLUENZA VACCINE (for 6+ mo) 0.5 ML DOSE IMVAC ONE (08:00)
[2023-01-11] MEDS: PHENYTOIN ER 100 MG CAP PO SCH ×3 (09:13→20:50)
--- NOTE | 2023-01-11 12:21 | RAD REPORT ---
EXAM DESCRIPTION: MRI - Brain W/Wo Cont - 01/11/2023 11:28 am CLINICAL HISTORY: SZ COMPARISON: Brain W/Wo Cont dated 11/24/2018; MRI BRAIN W WO CONTRAST dated 09/20/2009 TECHNIQUE: Sagittal T1-weighted images were obtained along with PD/heavily T2-weighted and T2-FLAIR images. Axial DWI and ADC mapping sequences were also obtained along with coronal heavily T2-weighted images were obtained. Post contrast enhanced images were obtained. FINDINGS: No intracranial hemorrhage, mass or acute infarction. No edema or shift of midline structu res. No extra-axial fluid collections. Signal voids are seen as a normal finding in the major intracr anial vessels. No significant white matter disease. No abnormal enhancement. Symmetric appearance of the hippocampi. No mastoid effusion.Paranasal sinuses are clear. IMPRESSION: No acute intracranial abnormality. No abnormal enhancement. Specifically, no seizure foc us identified.
--- NOTE | 2023-01-11 17:25 | P.PN ---
Subjective Date of Service: 01/11/23 Chief Complaint: history of seizures versus pseudoseizures Throughout the day today, he had 6 seizure-like episodes. I was unable to witness any of the episodes, but per nursing staff, it is characterized as generalized shaking and jerking movements. He denies any aura or post-ictal periods. He denies urinary/bowel incontinence or tongue biting. I discussed with Dr. Garza, who states that there is a question of psychogenic nonepileptic seizures; however, we are unable to verify at this time. He certainly has a history of epileptic seizures and he reports medication noncompliance. Review of Systems 10-point ROS is otherwise unremarkable Neurological: Seizures Physical Examination - Vital Signs Temperature: 97.6 F Blood Pressure: 147/87 Pulse: 97 Respirations: 18 Pulse Ox (%): 96 - Physical Exam General: Alert, In no apparent distress, Oriented x3 HEENT: Atraumatic, Mucous membr. moist/pink, EOMI, Sclerae nonicteric Neck: JVD not distended Respiratory: Clear to auscultation bilaterally, Normal air movement Cardiovascular: No edema, Regular rate/rhythm, Normal S1 S2, No gallops, No rubs, No murmurs Gastrointestinal: Normal bowel sounds, Soft and benign, Non-distended, No tenderness, No rebound, No guarding Musculoskeletal: No clubbing Integumentary: No rashes Neurological: Normal speech, Normal strength at 5/5 x4 extr, Sensation intact, Cranial nerves 3-12 intact, Normal affect - Studies Laboratory Data (last 24 hrs) 01/11/23 05:24: Sodium 140, Potassium 4.0 D, BUN 12, Creatinine 0.93, Glucose 98, Total Bilirubin 0.8, AST 25, ALT 30, Alkaline Phosphatase 86 01/11/23 05:24: WBC 6.50, Hgb 13.6 D, Hct 40.2, Plt Count 202 Assessment And Plan - Plan # Seizure-Like Activity # 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 Christensen - recommendations appreciated - Recommended transfer for continuous EEG monitoring; however, Mr. Zavala declined transfer - MRI brain = "no acute intracranial abnormality. No abnormal enhancement. Specifically, no seizure focus identified." - Routine EEG = pending - Continue levetiracetam, phenytoin - Resumed home topiramate, gabapentin - q6hr neuro checks - Seizure precautions Ppo Mcrae M.D.
[2023-01-11 18:35] LABS: Barbiturates NEGATIVE (NEGATIVE); Benzodiazepines NEGATIVE (NEGATIVE); Cocaine POSITIVE (NEGATIVE); METHAMPHETAM NEGATIVE (NEGATIVE); Methadone NEGATIVE (NEGATIVE); Opiates NEGATIVE (NEGATIVE); Phencyclidine NEGATIVE (NEGATIVE); THC Cannibis POSITIVE (NEGATIVE)
--- NOTE | 2023-01-11 18:42 | EKG ---
Test Date: 2023-01-10 Test Time: 11:35:19 Favor Maker: DARWIN MEASUREMENT RESULTS: Intervals: Rate: 128 RI: 126 QRSD: 80 QT: 300 QTc: 438 [place]: P: 34 RI: 126 QRS: 14 T: 16 INTERPRETIVE STATEMENTS: Sinus tachycardia Inferior infarct, age undetermined Abnormal ECG Compared to ECG 01/10/2023 11:34:10 Ventricular premature complex(es) no longer present Myocardial infarct finding still present Electronically Signed On 01-11-23 18:39:12 FORMING AND ASSEMBLING SUPERVISOR by Jake Chapa
--- NOTE | 2023-01-11 18:42 | EKG ---
Test Date: 2023-01-10 Test Time: 11:34:10 Tariff Clerk: DARWIN MEASUREMENT RESULTS: Intervals: Rate: 130 MO: 120 QRSD: 78 QT: 304 QTc: 447 [place]: P: 40 MO: 120 QRS: 13 T: -4 INTERPRETIVE STATEMENTS: Sinus tachycardia Inferior infarct, age undetermined Abnormal ECG Compared to ECG 03/15/2022 18:18:16 Myocardial infarct finding now present Sinus rhythm no longer present Electronically Signed On 01-11-23 18:39:28 LABORER G[employer]AF by Jake Chapa
[2023-01-11] MEDS: GABAPENTIN 300 MG CAP PO SCH (20:50)
[2023-01-11] MEDS: TOPIRAMATE 25 MG TAB PO SCH (20:51)
[2023-01-11] MEDS ORDERED: HOME MED 1 EA UNK (Topiramate [Topiramate] 50 MG Tablet) PO SCH (21:00)
[2023-01-11] MEDS: ZOLPIDEM TARTRATE 10 MG TABLET PO PRN (22:20)
--- NOTE | 2023-01-11 23:35 | P.PN ---
Date of Service: 01/11/23 Rapid response called by nursing staff as patient was seizing. PT noted to be having tonic-clonic seizure with evidence that he bit his tongue. Responded quickly to ativan. Pt to be moved to ICU given frequent seizures. Earlier today patient declined transfer to [facility] as he was unhappy with the way certain staff members spoke to him. I had another discussion with him and he still does not wish to be transferred now but states if he were to need to be intubated he would be ok with being transferred to a facility capable of performing continuous EEG/neuro ICU care. At this time he is stable, oriented x3.
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
[2023-01-12 05:27] VITALS: BMI 38.1
[2023-01-12] MEDS: PHENYTOIN ER 100 MG CAP PO SCH ×3 (08:25→21:16)
[2023-01-12] MEDS: GABAPENTIN 300 MG CAP PO SCH ×3 (08:25→21:16)
[2023-01-12 09:42] VITALS: O2SAT 94
[2023-01-12] MEDS: NA CHLORIDE 0.9% 1,000 ML IV SCH ×2 (10:33→17:00)
[2023-01-12] MEDS: TOPIRAMATE 25 MG TAB PO SCH ×2 (11:50→21:16)
[2023-01-12] MEDS: levETIRAcetam 500 MG in NA CHLORIDE 0.9% 100 ML IV SCH ×2 (11:52→21:16)
--- NOTE | 2023-01-12 14:48 | EEG ---
CHART: [id number] TEST ID#: [id number] DATE OF STUDY: 01-11-2023 THE EEG WAS RECORDED PORTABLE IN THE PATIENT'S ROOM ON A 17 CHANNEL MACHINE. ELECTRODES WERE APPLIED IN THE USUAL MANNER USING THE INTERNATIONAL 10-20 SYSTEM. THE [place] BACKGROUND RHYTHM IN THIS RECORD CONSISTS OF VERY WELL DEVELOPED AND WELL ORGANIZED WAVES OF 11 HZ., MAXIMAL IN THE POSTERIOR HEAD REGIONS WHICH ATTENUATE NORMALLY WITH EYE OPENING. LOW-VOLTAGE 18-22 HZ ACTIVITY IS EXPRESSED IN THE FRONTAL REGIONS. THERE ARE NO FOCAL OR LATERALIZING FEATURES. NO EPILEPTIFORM ACTIVITY APPEARS. SLEEP DID NOT OCCUR. HYPERVENTILATION WAS NOT PERFORMED. PHOTIC STIMULATION PRODUCED NO DRIVING BILATERALLY. IMPRESSION: NORMAL EEG FOR THE AGE OF THE PATIENT IN [place].
--- NOTE | 2023-01-12 17:57 | P.PN ---
Subjective Date of Service: 01/12/23 Chief Complaint: history of seizures versus pseudoseizures He has had no recurrent episodes during today's shift. This morning, he stated that he was okay with being transferred for continuous EEG. Initiated a transfer to [facility], but the transfer was declined due to him having multiple evaluations in the past. Per Dr. Christensen, he has been cleared for discharge with levetiracetam and topiramate. I informed Mr. Zavala, who was initially in agreement with this plan. However, shortly after I left, he stated that he is suicidal and he will go home and hurt himself. He was placed on suicide precautions with a sitter. [facility] has been consulted. Review of Systems 10-point ROS is otherwise unremarkable General: Other (suicidal) Neurological: Seizures Physical Examination - Vital Signs Temperature: 97 F Blood Pressure: 138/92 Pulse: 96 Respirations: 20 Pulse Ox (%): 96 - Physical Exam General: Alert, In no apparent distress, Oriented x3 HEENT: Atraumatic, Mucous membr. 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 Christensen - recommendations appreciated - Recommended transfer for continuous EEG monitoring; however, [facility] declined transfer due to prior evaluation - MRI brain = "no acute intracranial abnormality. No abnormal enhancement. Specifically, no seizure focus identified." - Routine EEG = "normal EEG for the age of the patient in [place]." - Continue levetiracetam, phenytoin - Resumed home topiramate, gabapentin - q6hr neuro checks - Seizure precautions # Suicidal Ideation - Reported SI after initially agreeing to discharge home - He has been placed in suicide precautions with a sitter - Consulted Psychiatry and spoke with Dr. Kim - recommendations appreciated - He will see him tomorrow - [facility] consulted - recommendations appreciated Pop Mcrae M.D.
[2023-01-12] MEDS: ZOLPIDEM TARTRATE 10 MG TABLET PO PRN (21:16)
--- NOTE | 2023-01-13 01:26 | PN ---
Subjective: Mr. Zavala is lying in ICU bed. He has some complaints of right arm swelling where the re was an infiltrated IV. He has not had a recent seizure and is actually very conversational and ap pears normal. He does say his friends gave him the drugs where he was actually found to be positive for cocaine, amphetamine, and marijuana. He lives at home with his parents and says he has no money to buy his prescription medications. Objective: Vital Signs: Blood pressure 138/92, pulse 96, respiratory rate 16, temperature 97, and o xygen saturation 96%. General: Mr. Zavala was resting comfortably in ICU bed. Neurologic: He has no focal neurologic deficits of the cranial nerves, motor, sensory, and coordinat ion. Laboratory Studies: From yesterday, completely normal complete blood count with differential. His b asic metabolic panel is completely normal. Liver function studies normal. Again his toxicology scre en is positive for cocaine and marijuana. The patient was actually ready to be discharged home when reportedly he mentioned to the hospitalist that he was suicidal, if he was discharged home. There was a consult placed for Psychiatry. Current ly, he is on levetiracetam 500 mg twice daily and Dilantin 100 mg 3 times daily. He also received to piramate 50 mg twice daily. It is noted that there was an attempt made to transfer the patient to [facility] for higher level of care. The patient's transfer was refused and it was noted from [facility] the patient did have long-term monitoring where his events were found to be nonepileptic. In any e vent, the patient is still in hospital and will be seen by Psychiatry. Assessment: Mr. Zavala is a 32-year-old patient, both seizures and pseudoseizures and multidrug abu se. He has had Dilantin, topiramate, and Keppra currently. He did report suicidal thoughts and will be seen by Psychiatry. Plan: Continue as noted with the treatment of antiepileptic medications and psychiatric evaluation. He may be transferred to [facility] depending on findings of Psychiatry. IGLESIA/VANESA Voice ID: [id number] Report ID: [id number]
[2023-01-13] MEDS: TOPIRAMATE 25 MG TAB PO SCH (08:51)
[2023-01-13] MEDS: PHENYTOIN ER 100 MG CAP PO SCH ×2 (08:51→15:48)
[2023-01-13] MEDS: GABAPENTIN 300 MG CAP PO SCH ×2 (08:51→15:48)
[2023-01-13 09:02] VITALS: TEMP 96.9
[2023-01-13] MEDS: levETIRAcetam 500 MG in NA CHLORIDE 0.9% 100 ML IV SCH (12:38)
--- NOTE | 2023-01-13 18:08 | P.DS ---
Admission Date: 01/11/23 Discharge Date: 01/13/23 Disposition: ROUTINE DISCHARGE Discharge Condition: GOOD Reason for Admission: history of seizures versus pseudoseizures Consultations: 1. Neurology 2. 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 Alfie Zavala is a 32 year old male with a past medical history significant for seizure disorder, psychogenic nonepileptic seizures, depression, and anxiety who was admitted to the [facility] on 01/10/2023 for seizure-like activity. He was admitted to the Medicine service. Upon further evaluation, he had several episodes in the hospital. An MRI brain revealed, "no acute intracranial abnormality. No abnormal enhancement. Specifically, no seizure focus identified." A routine EEG revealed, "normal EEG for the age of the patient in [place] His urine drug screen would return positive for cocaine and THC. He was counseled on substance cessation and verbalized understanding. Neurology was consulted and he was evaluated by Dr. Christensen. Over the last 24+ hours, he has had no recurrent episodes. Dr. Christensen has cleared him for discharge with outpatient follow-up. He recommended levetiraceetam, phenytoin, and topiramate as his anti-epileptic regimen. Yesterday, he endorsed suicidal ideation. He was placed in suicide precautions. He was evaluated by [facility] and cleared for outpatient follow-up. Psychiatry was consulted and he was evaluated by Dr. Kim, who recommended outpatient follow-up. He has cleared him for discharge from a psychiatric standpoint. He recommended venlafaxine, aripiprazole, diazepam, and zolpidem. He stated that he was unable to write the controlled substance prescriptions and requested that I write them on his behalf. I have sent prescriptions for zolpidem and diazepam as recommended by Psychiatry. Prior to the controlled substance prescriptions, a PDMP review was conducted. He has received 27 prescriptions from 1 physician to 1 pharmacy. His opioid overdose risk score is 110. On 01/13/2023, he was seen on rounds and deemed medically stable for discharge. He was discharged with instructions to schedule follow-up appointments with his PCP (Dr. Buckner), with Psychiatry (Dr. Kim), and with Neurology (Dr. Christensen). He was provided prescriptions for levetiracetam, phenytoin, venlafaxine, aripiprazole, diazepam, and zolpidem. He was given the opportunity to ask questions and reported no further questions. Furthermore, all questions were answered to the best of my ability. A copy of this discharge summary will be sent to the above providers to facilitate continuity of care. Today, I personally spent 35 minutes on his case, of which greater than 50% of the time was spent in patient education, counseling, and coordination of care as described above. - Physical Exam General: Alert, In no apparent distress, Oriented x3 HEENT: Atraumatic, Mucous membr. moist/pink, EOMI, Sclerae nonicteric Neck: JVD not distended Respiratory: Clear to auscultation bilaterally, Normal air movement Cardiovascular: No edema, Regular rate/rhythm, Normal S1 S2, No gallops, No rubs, No murmurs Gastrointestinal: Normal bowel sounds, Soft and benign, Non-distended, No tenderness Musculoskeletal: No clubbing Integumentary: No rashes Neurological: Normal speech, Normal affect Psychiatric: He states that he feels well. He denies any suicidal ideation, intention, or plan. Vital Signs/Physical Exam: Temp Pulse Resp BP Pulse Ox 96.9 F 86 16 115/73 98 01/13/23 08:00 01/13/23 08:00 01/13/23 08:00 01/13/23 08:00 01/13/23 08:00 Laboratory Data at Discharge: WBC 6.50 K/uL (4.3-10.9) 01/11/23 05:24 Hgb 13.6 g/dL (13.6-17.9) D 01/11/23 05:24 Hct 40.2 % (39.6-49.0) 01/11/23 05:24 Plt Count 202 K/uL (152-406) 01/11/23 05:24 Sodium 140 mmol/L (136-145) 01/11/23 05:24 Potassium 4.0 mmol/L (3.5-5.1) D 01/11/23 05:24 BUN 12 mg/dL (7-18) 01/11/23 05:24 Creatinine 0.93 mg/dL (0.70-1.30) 01/11/23 05:24 Glucose 98 mg/dL (74-106) 01/11/23 05:24 Total Bilirubin 0.8 mg/dL (0.2-1.0) 01/11/23 05:24 AST 25 U/L (15-37) 01/11/23 05:24 ALT 30 U/L (16-61) 01/11/23 05:24 Alkaline Phosphatase 86 U/L (45-117) 01/11/23 05:24 Home Medications: Gabapentin 300 mg PO TID 01/11/23 SUMAtriptan succinate [Sumatriptan Succinate] 500 mg PO Q1H PRN 01/11/23 Topiramate 50 mg PO BID 01/11/23 Aripiprazole [Abilify] 2 mg PO DAILY #30 tab 01/13/23 Diazepam [Valium] 5 mg PO DAILY PRN #15 tab 01/13/23 PHENYTOIN ER Cap [Dilantin ER Cap*] 300 mg PO BEDTIME #90 cap 01/13/23 Venlafaxine HCl [Effexor Xr] 75 mg PO DAILY #30 cap 01/13/23 Zolpidem Tartrate [Ambien*] 10 mg PO BEDTIME PRN PRN #30 tab 01/13/23 levETIRAcetam [Keppra Tab] 500 mg PO BID #60 tab 01/13/23 New Medications: Aripiprazole [Abilify] 2 mg PO DAILY #30 tab Zolpidem Tartrate [Ambien*] 10 mg PO BEDTIME PRN PRN #30 tab PRN Reason: Insomnia PHENYTOIN ER Cap [Dilantin ER Cap*] 300 mg PO BEDTIME #90 cap Venlafaxine HCl [Effexor Xr] 75 mg PO DAILY #30 cap levETIRAcetam [Keppra Tab] 500 mg PO BID #60 tab Diazepam [Valium] 5 mg PO DAILY PRN #15 tab PRN Reason: Anxiety Physician Discharge Instructions: PROBLEM: Seizures GOAL: Clear understanding of disease process INSTRUCTIONS: 1. Please call and schedule a follow-up appointment with your PCP (Dr. Buckner) in 3-5 days. 2. Please call and schedule a follow-up appointment with Neurology (Dr. Christensen) in 1-2 weeks 3. Please call and schedule a follow-up appointment with Psychiatry (Dr. Kim) in 5-7 days 4. Please take your medication as prescribed. 5. If symptoms worsen, please go to the ER. 6. If you have any questions regarding hospital stay, feel free to call . Diet: Regular Activity: Ad carmela DME DME: Date Ordered: Name of Company: [employer] Services Needed: None Name of Company: Date or Referral: IMMUNIZATION Influenza Vaccine Indicated: Yes Influenza Vaccine Given: Date Given: Pneumonia Vaccine Indicated: No Pneumonia Vaccine Given: Date Given: Diet: Regular Activity: Ad carmela Followup: Luther Christensen MD [ASSOCIATE-ACTIVE - CAN ADMIT] - Jorge Luis Kim MD [OUTSIDE PHYSICIAN] - Lanette Buckner DO, DO [ACTIVE - CAN ADMIT] - Time spent managing pt's care (in minutes): 35
[2023-01-13 19:16] VITALS: BP 125/85
--- NOTE | 2023-01-19 10:34 | CON ---
Date of Consultation: 01/13/2023 Reason For Consultation: Depression with suicidal ideation. History Of Present Illness: The patient was seen in ICU Room 1 in the presence of his nurse. Mr. Ferdinand bowden is a 32-year-old male, who was admitted to severe depression and suicidal geovanny ation. Initially, the patient states that he does have chronic history of depression. st ates that he has been on medications and has also had psychiatric admission due to severe depression 2 years ago. The patient states that prior to his admission, he was feeling depressed la tely and described depressed mood, feeling worthless, lack of motivation, less energy, ava edonia, . He states that he has been unable to continue with his because of la ck of resources. The patient states that his depression is he does have support from his mom and brother. He used to live with his mom and they do help her him . The patient endo rsed significant anxiety, which . He states that his sleep is poor, but denies any history of psychosis, irritability, and mood swings. He endorsed feeling frustrated by the situation. He e ndorsed history of self-harm distress. He denies history of manic or hypomanic episodes. Admits to smoking marijuana frequently and states that he did use . He does have history of he, however, denies history of PTSD symptoms. No obsessive compulsive symptoms reporte d either. He does have history of seizure disorder and currently on medications. . Janessa pierre, denies having suicidal ideations. Fund of knowledge average. Language skills Insi ght, judgment, and impulse control limited to fair. Diagnoses: 1.Major depressive disorder, recurrent. psychotic features. 2.Anxiety disorder. 3.Cocaine use, mood disorder. 4.Cannabis disorder. Recommendations: 1.Recommend the patient to discharge to 1 week of discharge for further evaluation and co ntinuation of treatment. 2.Recommend for the past history of trauma. 3.Recommend rehab for substance abuse. 4.Recommend starting Venlafaxine 75 mg extended release p.o. daily for depression and anxiety sympto ms. 5.Recommend starting Abilify 2 mg p.o. daily with plan to titrate for mood symptoms. 6.Recommend Ambien 10 mg p.o. at bedtime for sleep and . 7.Recommend Valium 5 mg p.o. daily p.r.n. for severe panic attacks the patient that this should be discontinued once that provided benefit. Recommendations discussed with treatme nt team. Patient does not require inpatient psychiatry admission at this time as he is not a suicide r, verbalized need of going to followup outpatient psychiatry and therapy to help increase social support from mom and brother. Also, patient agreed suicide risk is low, has never had any hi story of a currently does not have any . JOELLEN/VANESA Voice ID: [id number] Report ID: [id number]
== END 2023-01-13 19:35 | disposition home or self-care (01) | DRG 101 ==
LOC: ER 10:58 → ERHOLD 14:55 → 4TH 16:57 → OBSVTOIN 01-11 17:03 → 3RD-ICU 01-11 19:14
PROVIDERS: ADMIT Hospitalist; ATTEND Internal Medicine
DX: G40.409 Other generalized epilepsy and epileptic syndromes, not intractable, without status epilepticus (principal); R45.851 Suicidal ideations; F33.3 Major depressive disorder, recurrent, severe with psychotic symptoms; F41.8 Other specified anxiety disorders; F14.10 Cocaine abuse, uncomplicated; F12.10 Cannabis abuse, uncomplicated; F15.10 Other stimulant abuse, uncomplicated; Z90.49 Acquired absence of other specified parts of digestive tract; Z91.14 Patient's other noncompliance with medication regimen; Z91.120 Patient's intentional underdosing of medication regimen due to financial hardship; Z79.899 Other long term (current) drug therapy; Z20.822 Contact with and (suspected) exposure to COVID-19
CPT/HCPCS: 36415; 70553; 80048; 80053; 80307; 82550; 85025; 87811; 93005; 95816; 96365; 96366; 96375; 99285; A9577; G0378; G0480; J1953; J2270; J2405; J7030

== ENCOUNTER 2023-10-13 18:54 | Emergency (ER) | payer SELFPAY ==
[2023-10-13] MEDS ORDERED: LORazepam 2 MG/ML VIAL ONE ×2 (19:23→19:32)
[2023-10-13] MEDS ORDERED: NA CHLORIDE 0.9% 1,000 ML ONE ×2 (19:23→19:26)
--- OUTSIDE RECORDS SUMMARY | 2023-10-13 19:34 | XMS REPORT | Continuity of Care Document ---
:1990 Author Organization [facility] t Address [address] [facility] [address] [place] [address] Care Team Providers Name Role Phone ROYER GARSIA MAYI Primary Care Physician Unavailable JETT MONTOYA Attending Clinician Unavailable BECKY PATEL I. Attending Clinician Unavailable GENO LAMBERT Attending Clinician Unavailable DULCE SHIN Attending Clinician Unavailable Sabrina TONEY, [facility] Attending Clinician Dulce Shin MD Attending Clinician [phone] Nakul Chambers MD Attending Clinician Jus Yoon MD Attending Clinician [phone] Leila Salazar MD Attending Clinician CARSON AUGUST Attending Clinician Unavailable TAZ BRUCE Attending Clinician Unavailable JETT MONTOYA Admitting Clinician Unavailable BECKY PATEL I. Admitting Clinician Unavailable LEILA SALAZAR Admitting Clinician Unavailable CHEL VALIENTE Admitting Clinician Unavailable CARSON AUGUST Admitting Clinician Unavailable TAZ BRUCE Admitting Clinician Unavailable Payers Payer Name Policy Type Policy Number Effective Date Expiration Date Monique fong BCBS PPO POS [id number] 2014 2019 00:00:00 EPO CHOICE 00:00:00 Problems Condition Condition Condition Status Onset Resolution Last Treating Co mments Source Name Details Category Date Date Treatment Clinician Date Seizure Seizure Disease [facility]ur[facility]: Medical 00 Axis Psychogeni Psychogeni Disease Active [facility] nonepilept nonepilept 00:00: Me dical ic seizure ic seizure 00 Ce nter Status Status Disease Recurre 2017-[address] epilepticu epilepticu nce 0-27 Aleksandr kes s s 00:00: Medical Axis Acute Acute Disease Recurre 2017-[address] respirator respirator nce 0-27 Aleksandr kes y failure y failure 00:00: [facility] with with 00 Center hypoxia hypoxia Essential Essential Disease Recurre 2017-[address] hypertensi hypertensi nce 0-27 Aleksandr kes on on 00:00: Medical 00 Axis Acute Acute Disease Recurre 2017-[address] encephalop encephalop nce 0-27 Aleksandr kes athy athy 00:00: Medical 00 Axis Obesity Obesity Disease Active [facility] 00:00: Medical 00 Axis Suicide Suicide Disease Recurre [facility] attempt attempt nce 9[facility]27 [facility] 00:[facility]: Medical 00 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 kes 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:00: [facility] major major 00 Center depressive depressive disorder disorder Seizure Seizure Disease Active [facility] 00:[facility]: Medical 00 Center Allergies, Adverse Reactions, Alerts Allergy Allergy Status Severity Reaction(s) Onset Inactive Treating Comm ents Source Name Type Date Date Clinician LORAZEPA Allergy Active Med Hives [facility] M 9 00:00: 00 NO KNOWN Allergy Active [facility] ALLERGIE S Social History Social Habit Start Date Stop Date Quantity Comments Source History SDOH [facility] History SDOH Alcohol [facility] St[facility] Dr[facility] History SDOH Alcohol [facility] History SDOH [facility] Transport Non-Med Medical Center History SDOH Housing [facility] er Sexual orientation [facility] Center History SDOH 2022-03-16 2022-03-[address] [facility] Transport Med 00:00:00 00:00:[address] History SDOH Housing 2022-03-16 2022-03-[address] [facility] Unable to Pay 00:00:00 00:00:[address] History SDOH Housing 2022-03-16 2022-03-[address] [facility] Homeless Last Year 00:00:00 00:00:00 [facility] Alcohol intake 2022-03-16 2022-03-16 [facility]00 of [facility] (reading hospital) Alcohol Comment 2021-06-07 2021-06-07 every now and [facility] 00:00:00 00:00:00 [facility] Tobacco use and 2015-11-01 2015-11-[address] Aleksandr kes exposure 00:00:00 00:00:00 [facility] Sex Assigned At [address] Aleksandr kes 00:00:00 00:00:00 [facility] Smoking Status Start Date Stop Date Source Never smoker [facility] Medications Ordered Filled Start Stop Current Ordering Indication Dosage Frequency Signature Comments Components Source Medication Medication Date Date Medication? Clinician (SIG) Name Name lamoTRIgine 2022- No 100mg QD Take [address] (LaMICtal) 03-21 tablet [facility] 100 MG 00:00: 23:59 (100 mg Medical tablet 00 :00 total) by Center mouth daily. lamoTRIgine 2022- No 100mg QD Take [address] (LaMICtal) 03-21 tablet [facility] 100 MG 00:00: 23:59 (100 mg Medical tablet 00 :00 total) by Center mouth daily. topiramate Yes 50mg Q.5D Take [address] (TOPAMAX) 5-06 by mouth 2 Luke s 50 MG 10:24: (two) Medical tablet 51 times Center daily. topiramate Yes 50mg Q.5D Take [address] (TOPAMAX) 5-06 by mouth 2 Luke s 50 MG 10:24: (two) Medical tablet 51 times Center daily. zolpidem 2021- No 10mg Take [address] (AMBIEN) 10 03-20 05-06 by mouth Ana es mg tablet 08:46: 00:00 every Medica l 28 :00 night as Center needed for Insomnia. diazePAM 2021- No 10mg Take [address] (VALIUM) 10 03-20 05-06 by mouth Ana es MG tablet 08:46: 00:00 every 6 Medi tyrone 28 :00 (six) Center hours as needed for Anxiety. lamoTRIgine 2021- No 25mg QD Take [address] (LaMICtal) -28 05-06 tablet (25 Aleksandr kes 25 MG 00:00: 00:00 mg total) Medica l tablet 00 :00 by mouth Center daily. venlafaxine Yes 75mg Q.5D Take [address] (EFFEXOR) 7-27 tablet (75 Luke s 75 MG 00:00: mg total) Medical tablet 00 by mouth 2 Center (two) times daily. venlafaxine 0 Yes 75mg Q.5D Take [address] (EFFEXOR) 7-27 tablet (75 Luke s 75 MG 00:00: mg total) Medical tablet 00 by mouth 2 Center (two) times daily. phenytoin 2021- No 200mg Q.5D Take [address] (DILANTIN) 7- 07-27 capsule [facility] 200 MG ER 00:00: 23:59 (200 mg Medi tyrone capsule 00 :00 total) by Center mouth 2 (two) times daily. Immunizations Ordered Filled Immunization Date Status Comments [facility] Immunization Name Name Influenza Four-QIV 2018-09-[address] [facility] Non-PF 5+ YR 00:00:00 Medical Cent er Influenza Four-QIV Unknown Completed [facility] Non-PF 5+ YR Medical Cent er Vital Signs Vital Name [...] Center Diastolic blood 2022-03-20 03:00:00 78 mm[Hg] [facility] Heart rate 2022-03-20 03:00:00 85 /min [facility] Body temperature 2022-03-20 03:00:00 36.61 Hortencia [facility] Respiratory rate 2022-03-20 03:00:00 19 /min [facility] Oxygen saturation in 2022-03-20 03:00:00 98 /min [facility] Arterial blood by Medical Ce nter Pulse oximetry Body weight 2022-03-18 00:41:00 120.203 kg [facility] BMI 2022-03-18 00:41:00 38.02 kg/m2 [facility] Body height 2022-03-16 04:00:00 177.8 cm [facility] Procedures Procedure Date / Time Performed Performing Clinician Sourc e CBC W/PLT COUNT & AUTO 2022-03-19 03:57:00 Maureen Rob [facility] BASIC METABOLIC PANEL 2022-03-19 03:57:00 Darron [facility] MAGNESIUM 2022-03-19 03:57:00 Darron [facility] PHOSPHORUS 2022-03-19 03:57:00 Darron [facility] CBC W/PLT COUNT & AUTO 2022-03-19 03:57:00 [facility] LUM[facility] SPINE 2 OR 3 2022-03-18 17:00:00 Marie [facility] POCT-GLUCOSE METER 2022-03-18 12:11:00 [facility] 2022-03-18 08:04:00 ThanNakul tsang [facility] CBC W/PLT COUNT & AUTO 2022-03-18 04:42:00 Darron [facility] BASIC METABOLIC PANEL 2022-03-18 04:42:00 Darron [facility] MAGNESIUM 2022-03-18 04:42:00 Darron [facility] PHOSPHORUS 2022-03-18 04:42:00 Darron [facility] CBC W/PLT COUNT & AUTO 2022-03-18 04:42:00 Maureen Rob [facility] POCT-GLUCOSE METER 2022-03-17 23:43:00 ThanNakul tsang [facility] POCT-GLUCOSE METER 2022-03-17 17:57:00 ThanNakul tsang [facility] POCT-GLUCOSE METER 2022-03-17 12:20:00 ThanNakul steve [facility] CBC W/PLT COUNT & AUTO 2022-03-17 03:09:00 Darron, [facility] BASIC METABOLIC PANEL 2022-03-17 03:09:00 [facility] 2022-03-17 [facility] 2022-03-17 03:09:00 [facility] CBC W/PLT COUNT & AUTO 2022-03-17 03:09:00 aDrron [facility] POCT-GLUCOSE METER 2022-03-16 16:46:00 [facility] PO[facility] 2022-03-16 13:29:00 [facility] POCT-[facility]SE METER 2022-03-16 10:49:00 [facility] EEG AWAKE AND DROWSY 2022-03-16 10:30:00 Mitch Dawson [facility] BASIC METABOLIC PANEL 2022-03-16 10:13:00 Jud Jain [facility] LACTIC ACID, VENOUS 2022-03-16 10:13:00 [facility] BLOOD [facility], ARTERIAL 2022-03-16 08:02:00 [facility] LACTIC ACID, VENOUS 2022-03-16 05:18:00 [facility] CT BRAIN WITHOUT IV 2022-03-16 04:43:00 [facility] RAPID DRUG SCREEN, URINE 2022-03-16 04:09:00 Sabrina [facility] CBC W/PLT COUNT & AUTO 2022-03-16 04:06:00 [facility] CREATINE KINASE (CK) 2022-03-16 04:06:00 Bennett [facility] SALICYLATE LEVEL 2022-03-16 04:06[facility]00 [facility] LAMOT[facility]INE LEVEL 2022-03-16 04:06:00 Sabrina [facility] CARBAMAZEPINE 2022-03-16 04:06:00 Bennett [facility] CBC W/PLT COUNT & AUTO 2022-03-16 04:06:00 Maureen Rob I [facility] DIFFERENTIAL [facility] MISCELLANEOUS LAB ORDER 2022-03-16 02:16:00 Sabrina [facility] PROCALCITONIN 2022-03-16 02:16:00 [facility] LACTIC ACID, VENOUS 2022-03-16 02:16[facility] COMPREHENSIVE METABOLIC 2022-03-16 02:16:[address] [facility] PANEL [facility] MAGNESIUM 2022-03-16 02:16:00 Darron [facility] PHOSPHORUS 2022-03-16 02:16:00 [facility] CALCIUM, IONIZED 2022-03-16 02:16:00 [facility] PT/APTT 2022-03-16 02:16:00 [facility] TROPONIN I 2022-03-16 02:16:00 [facility] LAMOTRIGINE LEVEL 2022-03-16 02:16:00 [facility] PHENYTOIN LEVEL, TOTAL 2022-03-16 02:16:00 Sabrina [facility] Plan of Care Planned Activity Planned Date Details Comments Source Future Scheduled 2023-07-16 Influenza Vaccine (#1) [facility] Test 00:00:00 [code = Influenza Vaccine [facility] (#1)] Future Scheduled 2023-03-16 Tobacco Cessation [facility] Test 00:00:00 Counseling and Screening [facility] (12+) [code = Tobacco Cessation Counseling and Screening (12+)] Future Scheduled 2023-03-[address] [facility] Test 00:00:00 Counseling and Screening Med ical Center (12+) [code = Tobacco Cessation Counseling and Screening (12+)] Future Scheduled 2023-01-19 Lipid panel (procedure) [facility] Test 00:00:00 [code = 79055725] Medical Ce nter Future Scheduled 2023-01-19 Lipid panel (procedure) [facility] Test 00:00:00 [code = 22871112] Medical Ce nter Future Scheduled 2022-07-16 INFLUENZA VACCINE (#1) [facility] Test 00:00:00 [code = INFLUENZA VACCINE Pa dical Center (#1)] Future Scheduled 2007-01-19 DTAP/TDAP/TD VACCINES ([address] [facility] Test 00:00:00 - Tdap) [code = Medical Cent er DTAP/TDAP/TD VACCINES (1 - Tdap)] Future Scheduled 2007-01-19 DTAP/TDAP/TD VACCINES ([address] [facility] Test 00:00:00 - Tdap) [code = Medical Cent er DTAP/TDAP/TD VACCINES (1 - Tdap)] Future Scheduled 2006-01-19 HEPATITIS C SCREENING [facility] Test 00:00:00 [code = HEPATITIS C Medical Center SCREENING] Future Scheduled 2006-01-19 HEPATITIS C [facility]CRE[facility]ING [facility] Test 00:00:00 [code = HEPATITIS C Medical Center SCREENING] Future Scheduled 2003-01-[address] [facility] Test 00:00:00 virus screening Medical Cent er (procedure) [code = 825745657] Future Scheduled 1990 COVID-19 VACCINE (#1) [facility] Test 00:00:00 [code = COVID-19 VACCINE Med ical Center (#1)] Future Scheduled 1990 COVID-19 VACCINE (#1[facility] Test 00:00:00 [code = COVID-19 VACCINE Med ical Center (#1)] Encounters Start End Encounter Admission Attending Care Care Encounter Source Date/Time Date/Time Type Type Clinicians Facility Department ID 2021-08-21 Inpatient UR SHIEK [facility] Neurology [id number] SLE 11:31:32 JETT CARDOZA 2021-06-06 Inpatient UR HIRZALLAH, [facility] Neuro ICU [id number] SLE 17:43:00 MOHAMMAD 2022-03-24 2022-03-24 Outpatient RON LAMBERT, [facility] [id number] 00:00:00 00:00:00 [facility] 2022-03-15 2022-03-20 Inpatient ER RAY-BRYNJUAN MANUELPerla, [facility] Neurology [id number] [facility] 23:59:00 10:24:00 DULCE 2022-03-15 2022-03-20 Hospital ER Angelita Bennett [facility] [id number] 23:59:00 10:24:00 Encounter [facility]ce [facility] Leila Salazar 2022-03-16 2022-03-[address] [facility] [id number] [facility]00 [facility] Results Test Description Test Time Test Comments Results Result Comments Source MISCELLANEOUS LAB ORDER 2022-03-21 08:24:28 Test Item Value Reference Range Interpretation Comme nts SCAN RESULT (test code = 2919094) See scanned report [id number] 04:42:16 Test Item Value Reference Range Interpretation Comments MAGNESIUM (BEAKER) (test code = 2.1 mg/dL 1.5-3.0 627) Cardiograph Operator ID - [id number] 04:42:16 Test Item Value Reference Range Interpretation Comments PHOSPHORUS (BEAKER) (test code = 2.5 mg/dL 2.5-4.5 604) Cardiograph Operator ID - [id number] METABOLIC [id number] 04:42:15 Test Item Value Reference Range Interpretation [...] S NOT APPLICABLE FOR DIALYSIS PATIEN TS. Cardiograph Operator ID - [id number] W/PLT COUNT & AUTO [id number] 04:10:07 Test Item Value Reference Range Interpretation [...] 2801) RAD, SPINE, LUMBAR, 2 OR 3 [id number] 17:31:00Reason for exam:->S/p fall -C/o pain -to r/o fracture in lumbar /Sacral regionShould this be performed at the bedside?->Yes [facility] 1990 Sex: [...] MDReport Verified Date/Time: 03/18/2022 17:31:32 Reading Location: [facility] P048 Angio Body Reading Room POC-Glucose [id number] 12:24:00 Test Item Value Reference Range Interpretation Comments POC-Glucose Meter (test 89 mg/dL 70-110 : TE STED AT [facility] code = 1538) [id number] [facility] [address]: Cardiograph Operator/Techni chidi ID = [id number] for Paul, Carieliz y Lab Interpretation (test Normal code = 67035-8) [facility] [id number] 12:24:00 Test Item Value Reference Range Interpretation Comments POC-GLUCOSE METER 89 mg/dL 70-110 : TESTED A T [facility] [address] (BEAKER) (test code = [facility], 1538) [place] [address] 384: Cardiograph Operator/Techni chidi ID = [id number] for Vishal Paty thomas POCT-GLUCOSE [id number] 08:16:23 Test Item Value Reference Range Interpretation Comments POC-GLUCOSE METER 116 mg/dL 70-110 H : TESTED A T [facility] [address] (BEAKER) (test code [facility], = 1538) [place] [address] 384: Cardiograph Operator/Techni chidi ID = [id number] for Vishal sarabiawilliam, Paty BASIC METABOLIC [id number] 05:41:59 Test Item Value Reference Range Interpretation [...] S NOT APPLICABLE FOR DIALYSIS PATIEN TS. Cardiograph Operator ID - [id number] 05:37:05 Test Item Value Reference Range Interpretation Comments PHOSPHORUS (BEAKER) (test code = 2.5 mg/dL 2.5-4.5 604) Cardiograph Operator ID - [id number] 05:37:04 Test Item Value Reference Range Interpretation Comments MAGNESIUM (BEAKER) (test code = 2.0 mg/dL 1.5-3.0 627) Cardiograph Operator ID - [id number] W/PLT COUNT & AUTO [id number] 04:59:40 Test Item Value Reference Range Interpretation [...] PERCENT (BEAKER) (test code = 2801) POCT-GLUCOSE [id number] 23:54:14 Test Item Value Reference Range Interpretation Comments POC-GLUCOSE METER 89 mg/dL 70-110 : Notified RN/MD: TESTED (BEAKER) (test code = [facility] [address] [facility] 1538) [facility] [address]: Cardiograph Operator/Techni chidi ID = [id number] for Marychuy Han POCT-GLUCOSE [id number] 18:09:06 Test Item Value Reference Range Interpretation Comments POC-GLUCOSE METER 92 mg/dL 70-110 : TESTED A T [facility] [address] (BEAKER) (test code = [facility], 1538) [place] [address] 384: Cardiograph Operator/Techni chidi ID = [id number] for B all, Ambar POCT-GLUCOSE [id number] 12:32:30 Test Item Value Reference Range Interpretation Comments POC-GLUCOSE METER 98 mg/dL 70-110 : TESTED A T [facility] [address] (BEAKER) (test code = [facility], 1538) [place] [address] 384: Cardiograph Operator/Techni chidi ID = [id number] for B all, Ambar [id number] 03:49:44 Test Item Value Reference Range Interpretation Comments MAGNESIUM (BEAKER) (test code = 2.1 mg/dL 1.5-3.0 627) Cardiograph Operator ID - [id number] 03:49:44 Test Item Value Reference Range Interpretation Comments PHOSPHORUS (BEAKER) (test code = 2.7 mg/dL 2.5-4.5 604) Cardiograph Operator ID - [id number] METABOLIC [id number] 03:49:43 Test Item Value Reference Range Interpretation [...] S NOT APPLICABLE FOR DIALYSIS PATIEN TS. Cardiograph Operator ID - [id number] W/PLT COUNT & AUTO [id number] 03:16:58 Test Item Value Reference Range Interpretation [...] PERCENT (BEAKER) (test code = 2801) POCT-GLUCOSE [id number] 16:57:38 Test Item Value Reference Range Interpretation Comments POC-GLUCOSE METER 87 mg/dL 70-110 : TESTED A T [facility] [address] (BEAKER) (test code = [facility], 1538) [place] [address] 384: Cardiograph Operator/Techni chidi ID = [id number] for Dulce Martinez POCT-GLUCOSE [id number] 13:40:56 Test Item Value Reference Range Interpretation Comments POC-GLUCOSE METER 99 mg/dL 70-110 : TESTED A T [facility] [address] (BEAKER) (test code = [facility], 1538) [place] [address] 384: Cardiograph Operator/Techni chidi ID = [id number] for Dulce Martinez POCT-GLUCOSE [id number] 11:00:03 Test Item Value Reference Range Interpretation Comments POC-GLUCOSE METER 99 mg/dL 70-110 : TESTED A T [facility] [address] (BEAKER) (test code = [facility], 1538) [place] [address] 384: Cardiograph Operator/Techni chidi ID = [id number] for Annia Vega BASIC METABOLIC [id number] 10:38:10 Test Item Value Reference Range Interpretation [...] S NOT APPLICABLE FOR DIALYSIS PATIEN TS. Cardiograph Operator ID - [id number] ACID, [id number] 10:33:48 Test Item Value Reference Range Interpretation Comments LACTATE BLOOD VENOUS (2) (BEAKER) 1.08 mmol/L 0.50-2.20 (test code = 2872) Cardiograph Operator ID - [id number] gas, [id number] 08:14:43 Test Item Value Reference Range Interpretation [...] 28 Lab Interpretation Abnormal (test code = 02004-8) [facility], [id number] 08:14:43 Test Item Value Reference Range Interpretation [...] FIO2 (BEAKER) (test code = 1819) 28.0 [id number] 06:55:26 Test Item Value Reference Range Interpretation Comments CARBAMAZEPINE LEVEL (BEAKER) (test < ug/mL 4.0-12.0 L code = 696) Cardiograph Operator ID - CHANDA WLACTIC ACID, [id number] 05:41:33 Test Item Value Reference Range Interpretation Comments LACTATE BLOOD VENOUS (2) (BEAKER) 1.81 mmol/L 0.50-2.20 (test code = 2872) Cardiograph Operator ID - [id number] KINASE (CK)2022-03-16 05:27:29 Test Item Value Reference Range Interpretation Comments CREATINE KINASE TOTAL (BEAKER) (test 206 U/L 30-300 code = 380) Cardiograph Operator ID - [id number] drug screen, [id number] 05:16:38 Test Item Value Reference Range Interpretation Comments Barbiturate Screen Negative Negative (test code = 21534-5) Benzodiazepine Screen Positive Negative A (test code = 28159-0) Cocaine (Metab.) Negative Negative Screen (test code = 3397-7) Methadone Screen (test Negative Negative code = 50790-3) Opiate Screen (test Negative Negative code = 94011-8) Cannabinoid Screen Positive Negative A (test code = 23870-3) Amph/Methamph Screen Negative Negative (test code = 51754-4) Phencyclidine Screen Negative Negative (test code = 81288-7) pH, UA (test code = 7.5 5.0-8.0 5803-2) KASEY (test code = KASEY) DRUG CUTOFF CONC.Cocaine 300 ng/mL Cannabinoid 50 ng/mLBenzodiazepine 200 ng/mLBarbiturate 200 ng/mLPhencyclidine 25 ng/mLOpiate 300 ng/mLMethadone 300 ng/mLAmphetamine/ 1000 ng/mL Methamphetamine This assay provides an unconfirmed qualitative test result for the clinical management of patients in emergency situations. Chain of custody not maintained. Some iqiv-psp-jmdzaxz medications, as well as adulterants, may cause inaccurate results. Clinical correlation should be applied. A more comprehensive drug screen or confirmation of a detected drug may be performed upon request.Cardiograph Operator ID - [id number] Lab Interpretation Abnormal (test code = 73008-2) [facility], [id number] 05:16:38 Test Item Value Reference Range Interpretation [...] situations. Chain of custody not maintained. Some rwtn-xji-mvmrlla medications, as well as adulterants, may cause inaccurate results. Clinical correlation should be applied. A more comprehensive drug screen or confirmation of a detected drug may be performed upon request.Cardiograph Operator ID - [id number] LEVEL 2022-03-16 04:52:37 Test Item Value Reference Range Interpretation Comments SALICYLATE LEVEL (BEAKER) (test code < mg/dL 20.0-30.0 L = 764) Cardiograph Operator ID - [id number] 04:52:36 Test Item Value Reference Range Interpretation Comments ACETAMINOPHEN LEVEL (BEAKER) (test < ug/mL 10.0-30.0 L code = 344) Cardiograph Operator ID - [id number] 04:48:54 Test Item Value Reference Range Interpretation Comments ETHANOL (BEAKER) < mg/dL See_Comment [Automated message] The (test code = 400) system [facility] generated this result tra nsmitted reference range : <=10. The reference r king was not used to int erpret this result as normal/abnormal . Cardiograph Operator ID - [id number], BRAIN, WITHOUT [id number] 04:48:00Unlisted Reason for Exam - Click Yes and Enter Reason Below->No [facility] : 1990 Sex: [...] (BEAKER) (test code = 2801) PHENYTOIN LEVEL, [id number] 04:03:53 Test Item Value Reference Range Interpretation Comments PHENYTOIN (DILANTIN) (BEAKER) 14.2 ug/mL 10.0-20.0 (test code = 605) Cardiograph Operator ID - [id number] 03:33:34 Test Item Value Reference Range Interpretation Comments PROCALCITONIN (BEAKER) (test code = < ng/mL <0.05 3036) SEPSIS RISK (ng/mL)Low: 0.05-0.50Intermediate: 0.51-2.00High: >=2.01 COMPREHENSIVE METABOLIC [id number] 03:30:36 Test Item Value Reference Range Interpretation [...] S NOT APPLICABLE FOR DIALYSIS PATIEN TS. Cardiograph Operator ID - [id number] 03:28:09 Test Item Value Reference Range Interpretation Comments MAGNESIUM (BEAKER) (test code = 1.8 mg/dL 1.5-3.0 627) Cardiograph Operator ID - [id number] 03:28:09 Test Item Value Reference Range Interpretation Comments PHOSPHORUS (BEAKER) (test code = 2.2 mg/dL 2.5-4.5 L 604) Cardiograph Operator ID - [id number] ACID, [id number] 03:04:18 Test Item Value Reference Range Interpretation Comments LACTATE BLOOD VENOUS 4.39 mmol/L 0.50-2.20 HH Specime n slightly (2) (iGrez LLCAKER) (test hemolyzed code = 2872) Cardiograph Operator ID - [id number] 02:55:02 Test Item Value Reference Range Interpretation [...] failure, acidosis, acute neurological disease, and persistent tachyarrhythmia.Cardiograph Operator ID - [id number] 02:36:58 Test Item Value Reference Range Interpretation Comments PROTIME (BEAKER) (test code = 13.7 seconds 11.8-14.4 759) INR (iGrez LLCAKER) (test code = 370) 1.10 1.20-1.50 L PARTIAL THROMBOPLASTIN TIME 27.6 seconds 23.2-36.1 (BEAKER) (test code = 760) RECOMMENDED COUMADIN/WARFARIN INR THERAPY RANGESSTANDARD DOSE: 2.0 - 3.0 Includes: PROPHYLAXIS for venous thrombosis, systemic embolization; TREATMENT for venous thrombosis and/or pulmonary embolus.HIGH RISK: Target INR is 2.5-3.5 for patients with mechanical heart valves.CALCIUM, [id number] 02:27:07 Test Item Value Reference Range Interpretation Comments CALCIUM IONIZED (BEAKER) (test 1.07 mmol/L 1.12-1.27 L code = 698) PH, BLOOD (iGrez LLCAKER) (test code = 7.44 1810) PHENYTOIN LEVEL, [id number] 11:31:00 Test Item Value Reference Range Interpretation Comments PHENYTOIN (DILANTIN) (BEAKER) 13.6 ug/mL 10.0-20.0 (test code = 605) Cardiograph Operator ID - [id number] METABOLIC [id number] 06:02:00 Test Item Value Reference Range Interpretation [...] S NOT APPLICABLE FOR DIALYSIS PATIEN TS. Cardiograph Operator ID - DIEGO [facility] (HEMOGRAM ONLY)2021-06-10 05:18:00 Test Item Value Reference [...] code = 413) SPUTUM CULTURE + GRAM [id number] 15:06:00 Test Item Value Reference Interpretation Comments [...] 0-5 epithelial (BEAKER) (test code = cells 134386) GRAM STAIN RESULT 4+ gram positive (BEAKER) (test code = cocci in chains, 099711) pairs and clusters 4+ Normal respiratory beatrice presentBASIC METABOLIC [id number] 04:10:00 Test Item Value Reference Range Interpretation [...] S NOT APPLICABLE FOR DIALYSIS PATIEN TS. Cardiograph Operator ID - CHANDA WCBC W/PLT COUNT & AUTO [id number] 04:08:00 Test Item Value Reference Range Interpretation [...] 417) IMMATURE GRANULOCYTES-RELATIVE 0 % 0-1 PERCENT (MAXIMINO) (test code = 2801) EEG W VID 12-26 HR CONTINUOUS MONITORING (VEEG)2021-06-08 11:09:00 [facility] : 1990 Sex: M[facility] Report NAME: Maryanne Zavala DATE OF EE06/07/21- 06/08/21 DATE OF REPORT: 06/08/21 EE ACC: [id number] Start time: 10:02 AM on 06/07/21 Stop time: 9:17 AM on 06/08/21 ICD-10: R56.9 CPT Code: 41412 HISTORY: 31-year-old man with history of epilepsy, anxiety and depression, who was admitted for status epilepticus. MEDICATIONS THAT COULD AFFECT EEG: levetiracetam, phenytoin, precede TECHNICAL SUMMARY: This is a [facility] digital Video-EEG recorded with 32 input channels [...] Ortega M.D., Ph.D. Epilepsy/Neurophysiology Attending PHENYTOIN LEVEL, [id number] 10:37:00 Test Item Value Reference Range Interpretation Comments PHENYTOIN (DILANTIN) (BEAKER) 14.2 ug/mL 10.0-20.0 (test code = 605) Cardiograph Operator ID - [id number], CHEST, 1 VIEW, NON [id number] 09:28:00Reason for exam:->IntubatedShould this be performed at the bedside?->Yes [facility] 1990 Sex: MFINAL REPORT HISTORY: Intubation COMPARISON: 06/07/2021 at 1429 hours FINDINGS: The endotracheal tube appears to have been removed. Nasogastric tube tip is in the region of the stomach. Patchy bibasilar airspace consolidation is similar in appearance and may reflect atelectasis or pneumonia.No pleural effusions or pneumothorax are identified. Heart shadow normal in size. Signed: Amparo Morrell Verified Date/Time: 06/08/2021 09:28:05 Reading Location: [address] Transitional Reading Room BASIC METABOLIC [id number] 03:40:00 Test Item Value Reference Range Interpretation [...] S NOT APPLICABLE FOR DIALYSIS PATIEN TS. Cardiograph Operator ID - CHANDA [id number] 03:40:00 Test Item Value Reference Range Interpretation Comments MAGNESIUM (BEAKER) (test code = 1.7 mg/dL 1.6-2.6 627) Cardiograph Operator ID - CHANDA [id number] 03:40:00 Test Item Value Reference Range Interpretation Comments PHOSPHORUS (BEAKER) (test code = 2.2 mg/dL 2.3-4.7 L 604) Cardiograph Operator ID Roverto ARMAS WCBC W/PLT COUNT & AUTO [id number] 03:19:00 Test Item Value Reference Range Interpretation [...] (BEAKER) (test code = 2801) BLOOD GAS, [id number] 03:16:00 Test Item Value Reference Range Interpretation [...] 1819) 40.0 RAD, CHEST, 1 VIEW, NON [id number] 14:46:00Reason for exam:->R/O aspiration PNAShould this be performed at the bedside?->Yes [facility] : 1990 Sex: [...] MDReport Verified Date/Time: 06/07/2021 14:46:28 Reading Location: [facility] Transitional Reading Room EEG W VID 12-26 HR CONTINUOUS MONITORING (VEEG) 2021-06-07 13:01:00Reason for exam:->status epilepticus [facility] : 1990 [facility] NAME: Maryanne Zavala DATE OF EE06/06/21- 06/07/21 DATE OF REPORT: 06/07/21 EE ACC: [id number] Start time: 9:41 PM on 06/06/21 Stop time: 10:02 AM on 06/07/21 ICD-10: R56.9 CPT Code: 16250 HISTORY: 31-year-old man with history of epilepsy, anxiety and depression, who was admitted for status epilepticus. MEDICATIONS THAT COULD AFFECT EEG: Propofol, Levetiracetam. TECHNICAL SUMMARY: This is a [employer] [facility] recorded with 32 input channels [...] findings. Aleksandr Ortega M.D., Ph.D. Epilepsy/Neurophysiology Attending [id number] 11:44:00 Test Item Value Reference Range Interpretation Comments PROCALCITONIN (BEAKER) (test code = < ng/mL <0.05 3036) SEPSIS RISK (ng/mL)Low: 0.05-0.50Intermediate: 0.51-2.00High: >=2.01HIGH SENSITIVITY TROPONIN [id number] 11:38:00 Test Item Value Reference Range Interpretation Comments HIGH SENSITIVITY < pg/ml See_Comment [Automated message] TROPONIN I (test code = The system which 9796228) generated this result transmitted ref erence range: <=35. Th e reference range was not used to interpr et this result as normal/abnormal . Cardiograph Operator ID - DIEGO MThe CABLE INSTALLATION TECHNICIAN STAT High Sensitivity Troponin-I results should be used in conjunction with other diagnostic information such as ECG, clinical observations and information, and patient symptoms to aid in the diagnosis of [place].[id number] 11:23:00 Test Item Value Reference Range Interpretation Comments MAGNESIUM (BEAKER) (test code = 1.9 mg/dL 1.6-2.6 627) Cardiograph Operator ID - DIEGO MPHENYTOIN LEVEL, [id number] 05:21:00 Test Item Value Reference Range Interpretation Comments PHENYTOIN (DILANTIN) (BEAKER) 15.6 ug/mL 10.0-20.0 (test code = 605) Cardiograph Operator ID - DIEGO MCOMPREHENSIVE METABOLIC [id number] 04:26:00 Test Item Value Reference Range Interpretation [...] S NOT APPLICABLE FOR DIALYSIS PATIEN TS. Cardiograph Operator ID - DIEGO MCBC W/PLT COUNT & AUTO [id number] 04:03:00 Test Item Value Reference Range Interpretation [...] (BEAKER) (test code = 2801) BLOOD GAS, [id number] 03:46:00 Test Item Value Reference Range Interpretation [...] VID 12-26 HR CONTINUOUS MONITORING (VEEG)2020-09-30 13:05:00 [facility] : 1990 [facility] ELECTROENCEPHALOGRAM REPORT DATE OF STUDY: 09/30/2020DATE OF REPORT: 09/30/2020ACC: [id number]: [id number] time: 09/29/2020 @ 12:59Stop time: 09/30/2020 @ 12:59ICD-10: R56.9CPT Code: 96084 HISTORY: seizure disorder MEDICATIONS THAT COULD AFFECT [...] EEG recordings. Joao Blum M.D., FACNSProfessor of NeurologyScripps Green HospitalDirector, [facility] Epilepsy [facility] Neurophysiology Lab BASIC METABOLIC [id number] 07:16:00 Test Item Value Reference Range Interpretation [...] S NOT APPLICABLE FOR DIALYSIS PATIEN TS. Cardiograph Operator ID - [id number] 07:16:00 Test Item Value Reference Range Interpretation Comments MAGNESIUM (BEAKER) (test code = 2.1 mg/dL 1.6-2.6 627) Cardiograph Operator ID - EDASICBC W/PLT COUNT & AUTO [id number] 06:35:00 Test Item Value Reference Range Interpretation [...] (test code = 416) BASOPHILS ABSOLUTE COUNT (MAXIMINO) 0.05 K/ L 0.01-0.08 (test code = 417) IMMATURE GRANULOCYTES-RELATIVE 0 % 0-1 PERCENT (MAXIMINO) (test code = 2801) EEG W VID 12-26 HR CONTINUOUS MONITORING (VEEG)2020-09-29 14:32:00Reason for exam:->Seizures capturing [facility] : 1990 Sex: M[facility] Video EEG REPORT Name: Maryanne Zavala ACC: [id number] EE DATE OF TEST: 09/28/20 - 09/29/20 DATE OF REPORT: 09/29/20 Start time/date: 11:46 AM 09/28/20 Stop time/date: 12:59 PM 09/29/20 ICD-10: R56.9 CPT Code: 23405 HISTORY: 30 y/o M s/p seizures x2. [...] No seizures or epileptiform discharges were seen. Luiz Cintron M.D., Ph.D. Neurophysiology/Epilepsy Attending [facility] METABOLIC PANEL 2020-09-29 07:17:00 Test Item [...] S NOT APPLICABLE FOR DIALYSIS PATIEN TS. Cardiograph Operator ID - [id number] 07:17:00 Test Item Value Reference Range Interpretation Comments MAGNESIUM (BEAKER) (test code = 1.9 mg/dL 1.6-2.6 627) Cardiograph Operator ID - EDASICBC W/PLT COUNT & AUTO [id number] 06:25:00 Test Item Value Reference Range Interpretation [...] PERCENT (BEAKER) (test code = 2801) SARS-COV2/RT-PCR ([facility])2020-09-28 17:19:00 Test Item Value Reference Range Interpretation Comments SARS-COV2/RT-PCR (test Negative Not Detected, Negative, code = 6507615) See external report for linked test SARS-COV-2 PERFORMING LAB [facility] (test code = 9906634) Negative result for this test determines that [...] of the Act.Fact Sheet for Healthcare Prov iders:https://www.Shopline.Biocycle/sites/default/files/product/documents/Fact_Sheet_HC _Ubprmakwo_Uywa_ZNAQ-PoM-5.pdfFact Sheet for Healthcare Patients:https://www.Shopline.com/sites/default/files/product/docume nts/Bosf_Ctxcc_Cbxshjdz_Dhoj_JDYN-HnL-4.pdfPerforming Laboratory:[facility], [place] [address]QBAAY DRUG SCREEN, URINE 2020-09-28 16:44:00 Test Item [...] ng/mLOpiate 300 ng/mLMethadone 300 ng/mLAmphetamine/ 1000 ng/mL MethamphetamineThisassay provides an unconfirmed qualitative test result for the clinical management of patients in emergency situations. Chain of custody not maintained. Some sarf-vuk-jcsjvfi medications, as well as adulterants, may cause inaccurate results. Clinical correlation should be applied. A more comprehensive drug screen or confirmation of a detected drug may be performed upon request.Cardiograph Operator ID - MAYRA PERILiz, HAND, 2 VIEWS, [id number] 14:06:00Reason for exam:->swelling and pain [facility] : 1990 Sex: [...] Date/Time: 09/28/2020 14:06:34 RAD, WRIST, 2 VIEWS, [id number] 14:06:00Reason for exam:->Swelling and pain [facility] : 1990 Sex: MFINAL REPORT RAD, HAND, 2 VIEWS, LEFT, RAD, WRIST, 2 VIEWS, LEFT CLINICAL INDICATION: swelling and pain TECHNIQUE: Two views of the left hand, two views of the left wrist COMPARISON: None FINDINGS: No fracture or dislocation. Joint spaces are normal. No focal soft tissue abnormality. IMPRES GIGI:No evidence of acute osseous injury. Signed: Alondra Camejo Verified Date/Time: 09/28/2020 14:06:34 BASIC METABOLIC [id number] 05:25:00 Test Item Value Reference Range Interpretation [...] S NOT APPLICABLE FOR DIALYSIS PATIEN TS. Cardiograph Operator ID - ADMINHEPATIC FUNCTION [id number] 05:25:00 Test Item Value Reference Range Interpretation [...] (test code = 33 U/L 6-55 347) Cardiograph Operator ID - ADMINCBC W/PLT COUNT & AUTO [id number] 04:39:00 Test Item Value Reference Range Interpretation [...] PERCENT (BEAKER) (test code = 2801) BLOOD [id number] 18:00:00 Test Item Value Reference Range Interpretation Comments CULTURE (BEAKER) (test No growth in 5 days code = 1095) BLOOD [id number] 18:00:00 Test Item Value Reference Range Interpretation Comments CULTURE (BEAKER) (test No growth in 5 days code = 1095) SPUTUM CULTURE + GRAM [id number] 14:21:00 Test Item Value Reference Range Interpretation Comments CULTURE (BEAKER) 4+ Normal respiratory (test code = 1095) beatrice present GRAM STAIN RESULT 1+ gram positive rods (BEAKER) (test code = 1123) GRAM STAIN RESULT 1+ gram negative cocci (BEAKER) (test code = 37412) GRAM STAIN RESULT 2+ gram positive cocci (BEAKER) (test code = in chains 08263) GRAM STAIN RESULT 1+ gram positive cocci (BEAKER) (test code = in clusters 398114) RAD, CHEST, 1 VIEW, NON [id number] 07:27:00Reason for exam:->post intubationShould this be performed [...] or blastic abnormalities are appreciated. Signed: Stefano Duñeas [facility] Verified Date/Time: 09/13/2018 07:27:51 Reading Location: [facility] Radiology Reading Room [id number] 04:44:00 Test Item Value Reference Range Interpretation Comments PHOSPHORUS (BEAKER) (test code = 2.9 mg/dL 2.3-4.7 604) Check Serum Phosphorus level 4 hours after IV phosphorus replacement or 8 hours after PO replacementcompleted.[id number] 04:44:00 Test Item Value Reference Range Interpretation Comments MAGNESIUM (BEAKER) (test code = 2.2 mg/dL 1.6-2.6 627) Check Serum Phosphorus level 4 hours after IV phosphorus replacement or 8 hours after PO replacementcompleted.BASIC METABOLIC [id number] 04:44:00 Test Item Value Reference Range Interpretation [...] after PO replacementcompleted.CBC W/PLT COUNT & AUTO [id number] 04:19:00 Test Item Value Reference Range Interpretation [...] 0-1 PERCENT (BEAKER) (test code = 2801) [id number] 18:41:00 Test Item Value Reference Range Interpretation Comments POTASSIUM (BEAKER) (test code = 3.9 meq/L 3.5-5.1 379) Check Serum Potassium level 2 hours after oral potassium replacement completed or 30 min after intravenous potassium replacement.[id number] 18:41:00 Test Item Value Reference Range Interpretation Comments MAGNESIUM (BEAKER) (test code = 2.9 mg/dL 1.6-2.6 H 627) Check Serum Potassium level 2 hours after oral potassium replacement completed or 30 min after intravenous potassium replacement.EEG MONITORING WITH VIDEO RECORDING EACH 24 [id number] 14:34:00billing for 09/12 AMDATE OF REPORT: 09/12/2018 ACC: [id number] EE Start time: 09/11 at 0920 AM Stop time: 09/12 at 11:11 AM ICD-10: R56.9 CPT Code: 80423 HISTORY: 28 year old male p/w increased [...] Fellow Davis Cintron MD, PhD Attending Neurophysiologist [facility] [id number] 12:15:00 Test Item Value Reference Range Interpretation Comments MAGNESIUM (BEAKER) (test code = 1.9 mg/dL 1.6-2.6 627) Check Serum Phosphorus level 4 hours after IV phosphorus replacement or 8 hours after PO replacementcompleted.Check Serum Potassium level 2 hours after oral potassium replacement completed or 30 min after intravenous potassium replacement.[id number] 12:15:00 Test Item Value Reference Range Interpretation Comments PHOSPHORUS (BEAKER) (test code = 2.0 mg/dL 2.3-4.7 L 604) Check Serum Phosphorus level 4 hours after IV phosphorus replacement or 8 hours after PO replacementcompleted.Check Serum Potassium level 2 hours after oral potassium replacement completed or 30 min after intravenous potassium replacement.[id number] 12:14:00 Test Item Value Reference Range Interpretation Comments POTASSIUM (BEAKER) (test code = 3.6 meq/L 3.5-5.1 379) Check Serum Phosphorus level 4 hours after IV phosphorus replacement or 8 hours after PO replacementcompleted.Check Serum Potassium level 2 hours after oral potassium replacement completed or 30 min after intravenous potassium replacement.CALCIUM, [id number] 11:49:00 Test Item Value Reference Range Interpretation Comments CALCIUM IONIZED (BEAKER) (test 1.09 mmol/L 1.12-1.27 L code = 698) PH, BLOOD (BEAKER) (test code = 7.46 1810) Check serum Ionized Calcium level after 4 hours after IV Calcium replacement. URINE [id number] 08:18:00 Test Item Value Reference Range Interpretation Comments CULTURE (BEAKER) (test code = 1095) No growth [id number] 03:59:00 Test Item Value Reference Range Interpretation Comments PHOSPHORUS (BEAKER) (test code = 2.5 mg/dL 2.3-4.7 604) Check Serum Phosphorus level 4 hours after IV phosphorus replacement or 8 hours after PO replacementcompleted.[id number] 03:59:00 Test Item Value Reference Range Interpretation Comments MAGNESIUM (BEAKER) (test code = 2.1 mg/dL 1.6-2.6 627) Check Serum Phosphorus level 4 hours after IV phosphorus replacement or 8 hours after PO replacementcompleted.BASIC METABOLIC [id number] 03:59:00 Test Item Value Reference Range Interpretation [...] after PO replacementcompleted.CBC W/PLT COUNT & AUTO [id number] 03:41:00 Test Item Value Reference Range Interpretation [...] PERCENT (BEAKER) (test code = 2801) POCT-GLUCOSE [id number] 23:55:00 Test Item Value Reference Range Interpretation Comments POC-GLUCOSE METER 94 mg/dL 70-110 TESTED AT [facility] [address] (MAXIMINO) (test code = [place] [address] 1538) [id number] 18:08:00 Test Item Value Reference Range Interpretation Comments POTASSIUM (MAXIMINO) (test code = 3.4 meq/L 3.5-5.1 L 379) Check Serum Potassium level 2 hours after oral potassium replacement completed or 30 min after intravenous potassium replacement.EEG MONITORING WITH VIDEO RECORDING EACH 24 [id number] 09:23:00DATE OF REPORT: 09/11/2018ACC: [id number]: art time: 09/10 at 15:05Stop time: 09/11 at 09:20 AMICD- 10: R56.9CPT Code: 94834 HISTORY: 28 yo male with h/o seizures [...] John MDNeurophysiology Fellow Joao Blum M.D.,FACNSProfessor of NeurologyScripps Green HospitalDirector, [facility] Epilepsy AxisTurner [facility] Neurophysiology Lab RAD, CHEST, 1 VIEW, NON [id number] 07:32:00Reason for exam:->post intubationShould this be performed [...] MDReport Verified Date/Time: 09/11/2018 07:32:46 Reading Location: [address] Reading Room POCT- GLUCOSE [id number] 06:30:00 Test Item Value Reference Range Interpretation Comments POC-GLUCOSE METER 111 mg/dL 70-110 H TESTED AT [facility] [address] [facility] (test code = CONCHITA Gutiérrez [facility] 1538) [address] BASIC METABOLIC [id number] 06:06:00 Test Item Value Reference Range Interpretation [...] PATIEN TS. CBC W/PLT COUNT & AUTO [id number] 03:47:00 Test Item Value Reference Range Interpretation [...] (BEAKER) (test code = 2801) BLOOD GAS, [id number] 03:32:00 Test Item Value Reference Range Interpretation [...] (test code = 1819) 40.0 % POCT-GLUCOSE [id number] 01:01:00 Test Item Value Reference Range Interpretation Comments POC-GLUCOSE METER 91 mg/dL 70-110 TESTED AT [facility] [address] (BEAKER) (test code = [address]ITA Gutiérrez [facility] [address] 1538) TROPONIN [id number] 17:18:00 Test Item Value Reference Range Interpretation [...] neurological disease, and persistent tachyarrhythmia.EEG AWAKE AND [id number] 15:50:00 Reason for exam:->Status epilepticus, c EEG for evaluation of subclinical seizures Should this beperformed at the bedside?->YesDATE OF REPORT: 09/10/2018ACC: [id number]: 18-7Start time: 14:47Stop time: 15:04ICD-10: R56.9CPTCode: 80680 HISTORY: 28 yo male with h/o seizures [...] MDNeurophysiology Fellow Joao Blum M.D., FACNSProfessor of NeurologyScripps Green HospitalDirector, [facility] Epilepsy Center D GAS, [id number] 12:32:00 Test Item Value Reference Range Interpretation [...] 1819) 40.0 % RAD, ABDOMEN/KUB, 1 VIEW [id number] 12:12:00Reason for exam:->corpakShould this be performed at the bedside?->YesFINAL REPORT AP abdomen, three images HISTORY: Feeding tube COMPARISON: 11/01/2015 IMPRESSION:Feeding tube present with tip in abdomen. Bowel gas pattern appears grossly nonobstructive. Signed: Edgardo Guzman Verified Date/Time: 09/10/2018 12:12:56 Reading Location: [address] Ortho Consult Reading Room , CHEST, 1 VIEW, NON [id number] 10:40:00Reason for exam:->post intubationShould this be performed at the bedside?->YesFINAL REPORT AP chest HISTORY: Intubation COMPARISON: None IMPRESSION:Endotrache al tube in satisfactory position. Right IJ central venous catheter at mid SVC. Heart size normal. Mild perihilar atelectasis. Lungs otherwise clear. No pneumothorax. Signed: Edgardo Guzman Verified Date/Time: 09/10/2018 10:40:47 Reading Location: [address] Consult Reading Room Electr onically signed by: EDGARDO GUZMAN M.D. on 09/10/2018 10:40 AMTROPOSOLOMON [id number] 09:21:00 Test Item Value Reference Range Interpretation [...] failure, acidosis, acute neurological disease, and persistent tachyarrhythmia.[id number] 09:19:00 Test Item Value Reference Range Interpretation Comments CARBAMAZEPINE LEVEL (BEAKER) (test 2.2 ug/mL 4.0-12.0 L code = 696) PHENYTOIN LEVEL, [id number] 09:18:00 Test Item Value Reference Range Interpretation Comments PHENYTOIN (DILANTIN) (BEAKER) 10.8 ug/mL 10.0-20.0 (test code = 605) [id number] 09:03:00 Test Item Value Reference Range Interpretation Comments PARTIAL THROMBOPLASTIN TIME 27.5 seconds 22.5-36.0 (BEAKER) (test code = 760) PROTHROMBIN [id number] 09:02:00 Test Item Value Reference Range Interpretation Comments PROTIME (BEAKER) (test code = 14.6 seconds 11.7-14.7 759) INR (BEAKER) (test code = 370) 1.1 <=5.9 RECOMMENDED COUMADIN/WARFARIN INR THERAPY RANGESSTANDARD DOSE: 2.0 - 3.0 Includes: PROPHYLAXIS for venous thrombosis, systemic embolization; TREATMENT for venous thrombosis and/or pulmonary embolus.HIGH RISK: Target INR is 2.5-3.5 for patients with mechanical heart valves.PLATELET [id number] 08:53:00 Test Item Value Reference Range Interpretation Comments PLATELET COUNT (BEAKER) (test 184 K/CU MM 150-450 code = 756) BASIC METABOLIC [id number] 07:07:00 Test Item Value Reference Range Interpretation [...] 29-200 H code = 380) BASIC METABOLIC [id number] 05:19:00 Test Item Value Reference Range Interpretation [...] U/L 29-200 H code = 380) POCT-GLUCOSE [id number] 17:02:00 Test Item Value Reference Range Interpretation Comments POC-GLUCOSE METER 93 mg/dL 70-110 TESTED AT [facility] [address] (BEAKER) (test code = [place] [address] 1538) [id number] 04:54:00 Test Item Value Reference Range Interpretation Comments MAGNESIUM (BEAKER) (test code = 2.1 mg/dL 1.6-2.6 627) BASIC METABOLIC [id number] 04:54:00 Test Item Value Reference Range Interpretation [...] H code = 380) EEG AWAKE AND [id number] 16:50:00Reason for exam:->seizure disorder Neurophysiology Electroencephalogram Report DATE OF REPORT: 08/10/18Date(s) of Study: 08/10/2018ACC: [id number]: [id number] time: 1517 hrsStop time: 1537 hrsICD-10: R56.9 Unspecified ConvulsionsCPT Code: 68623 EEG: awake and drowsy <40 min HISTORY: [...] Fellow Shamir Najera MD, MSClinical Neurophysiology/Epilepsy Attending [facility] Neurophysiology Service URINALYSIS W/ [id number] 05:20:00 Test Item Value Reference Range Interpretation [...] 0 /HPF SOURCE(BEAKER) (test code = 2795) [id number] 03:17:00 Test Item Value Reference Range Interpretation Comments CARBAMAZEPINE LEVEL (BEAKER) (test < ug/mL 4.0-12.0 L code = 696) [id number] 02:33:00 Test Item Value Reference Range Interpretation Comments PHOSPHORUS (BEAKER) (test code = 2.8 mg/dL 2.3-4.7 604) [id number] 02:33:00 Test Item Value Reference Range Interpretation Comments MAGNESIUM (BEAKER) (test code = 2.2 mg/dL 1.6-2.6 627) BASIC METABOLIC [id number] 02:33:00 Test Item Value Reference Range Interpretation [...] APPLICABLE FOR DIALYSIS PATIEN TS. HEPATIC FUNCTION [id number] 02:33:00 Test Item Value Reference Range Interpretation [...] U/L 29-200 H code = 380) C-REACTIVE [id number] 02:33:00 Test Item Value Reference Range Interpretation Comments C-REACTIVE PROTEIN (BEAKER) (test 0.45 mg/dL 0.00-0.50 code = 676) LACTIC ACID, VENOUS, WHOLE [id number] 02:26:00 Test Item Value Reference Range Interpretation Comments LACTATE BLOOD VENOUS 1.0 mmol/L 0.5-2.2 Specime n slightly (2) (BEAKER) (test hemolyzed code = 2872) Effective 03/18/2016: Units/Reference Range ChangeNew: 0.5-2.2 mmol/L Previous: 5- 20 mg/dLCBC W/PLT COUNT & AUTO [id number] 02:05:00 Test Item Value Reference Range Interpretation [...] (BEAKER) (test code = 2801) POCT-BLOOD GASES, [id number] 01:50:00 Test Item Value Reference Range Interpretation Comments TEMP, CELSIUS-POC 37.0 (BEAKER) (test code = 1834) FIO2-POC (BEAKER) TESTED AT [facility] 6720 (test code = 1835) [facility] [place] [address] PH, ARTERIAL-POC 7.396 7.350-7.450 (BEAKER) (test code [...] L ARTERIAL-POC (BEAKER) (test code = 1841) [id number] 01:50:00 Test Item Value Reference Range Interpretation Comments POC-SODIUM ([facility]) 140 meq/L 135-148 TESTED [place] [address] (test code = 1542) [facility] [address] [id number] 01:50:00 Test Item Value Reference Range Interpretation Comments POC-POTASSIUM 3.4 meq/L 3.6-5.5 L TESTED AT [place] [address] ([facility]) (test code [facility] [address] = 1540) [id number] 01:50:00 Test Item Value Reference Range Interpretation Comments POC-GLUCOSE ([facility]) 105 mg/dL 70-110 TESTED AT [place] [address] (test code = 1855) [facility] [address] POCT-CALCIUM [id number] 01:50:00 Test Item Value Reference Range Interpretation Comments POC-CALCIUM IONIZED 1.15 mmol/L 1.12-1.27 TESTED [place] [address] ([facility]) (test code = [facility] 1536) [id number] 01:50:00 Test Item Value Reference Range Interpretation Comments POC-HEMATOCRIT 35 % 40-50 L TESTED AT [place] [address] ([facility]) (test code = [facility] [address] 1855) [id number] 01:50:00 Test Item Value Reference Range Interpretation Comments POC-HEMOGLOBIN 11.9 g/dL 13.0-16.8 L TESTED AT [place] [address] ([facility]) (test code [facility] = 1856) [id number] AT [address] [address] POCT-LACTIC ACID, [id number] 01:49:00 Test Item Value Reference Range Interpretation Comments POC-LACTIC ACID, 0.9 mmol/L 0.4-1.3 TESTED AT [place] [address] ARTERIAL ([facility]) HERMINIA MICHAEL (test code = 2804) [id number]
[2023-10-13] MEDS ORDERED: METOPROLOL TARTRATE 5 MG/5 ML INJ IV ONE (19:38)
[2023-10-13] MEDS ORDERED: Magnesium Sulfate 2gm IVPB 0 G/0 ML BAG IV ONE (19:44)
[2023-10-13] MEDS ORDERED: MAGNESIUM SULFATE 1 gm IVPB 1 GM/100 ML BAG IV ONE (19:45)
[2023-10-13 19:46] LABS: Absolute Lymphocytes (CBC) 2.9 K/uL (0.7-4.9); Hematocrit 43.5 % (39.6-49.0); Lymphocytes % 28.6 % (15.3-44.8); MCV 90.1 fL (80-100); MPV 8.6 fL (7.6-11.3); Platelets 246 thou/uL (152-406); RBC Red Blood Cell Count 4.82 M/uL (4.33-5.43)
[2023-10-13 19:57] LABS: ALT/SGPT 42 U/L (16-61); AST/SGOT 19 U/L (15-37); Albumin 3.5 g/dL (3.4-5.0); Alkaline Phosphatase 103 U/L (45-117); BUN Blood Urea Nitrogen 13 mg/dL (7-18); Bicarbonate 22 mEq/L (21-32); Bilirubin Direct 0.1 mg/dL (0-0.2); Bilirubin Indirect, Calculated 0.5 mg/dL (0.2-0.8); Bilirubin Total 0.6 mg/dL (0.2-1.0); Glomerular Filtration Rate 85 ml/min (=/>90); Glucose Level 167 mg/dL (74-106); Potassium 3.3 mEq/L (3.5-5.1); Protein, Total 7.4 g/dL (6.4-8.2); Sodium Level 136 mEq/L (136-145)
[2023-10-13 20:00] LABS: Protime INR 1.13
[2023-10-13] MEDS ORDERED: FOSPHENYTOIN PE 500 MG/10 ML VIAL ONE (20:06)
[2023-10-13] MEDS ORDERED: NA CHLORIDE 0.9% 100 ML ONE (20:06)
--- NOTE | 2023-10-13 21:12 | RAD REPORT ---
EXAM DESCRIPTION: CT - Head Brain Wo Cont - 10/13/2023 8:18 pm CLINICAL HISTORY: SEIZURE COMPARISON: Head Brain Wo Cont dated 06/06/2021; Facial Bones W/ Mpr dated 07/30/2020 TECHNIQUE: Noncontrast head CT images were obtained without IV contrast. Multiplanar reformats were generated and reviewed. All CT scans are performed using dose optimization technique as appropriate and may include automated exposure control or mA/KV adjustment according to patient size. FINDINGS: No intracranial hemorrhage, mass, or edema. Midline structures are unremarkable. Normal ventricular caliber for age. Jacob-white matter differentiation is preserved, without evidence of acute infarct. No abnormal extra- axial fluid collections. Mastoid air cells and visualized portions of the paranasal sinuses are clear. No acute bony findings. IMPRESSION: No evidence of an acute intracranial process.
[2023-10-13 21:23] LABS: Barbiturates NEGATIVE (NEGATIVE); Benzodiazepines POSITIVE (NEGATIVE); Cocaine NEGATIVE (NEGATIVE); METHAMPHETAM NEGATIVE (NEGATIVE); Methadone NEGATIVE (NEGATIVE); Opiates NEGATIVE (NEGATIVE); Phencyclidine NEGATIVE (NEGATIVE); THC Cannibis POSITIVE (NEGATIVE)
[2023-10-13 21:46] LABS: Specific Gravity 1.016 (1.005-1.030); Urine Bacteria None Seen /HPF (<20); Urine Bilirubin NEGATIVE (Negative); Urine Blood Negative (Negative); Urine Clarity Clear (Clear); Urine Color Light-Yellow (Yellow); Urine Glucose NEGATIVE (Negative); Urine Mucus Slight /HPF (None Seen); Urine Protein NEGATIVE (Negative); Urine RBC None Seen /HPF (None Seen); Urine Urobilinogen Normal (Normal); Urine pH 6.5 (5.0-7.0)
--- NOTE | 2023-10-13 21:49 | ER ---
Nurse's Notes [facility] Name: Alfie Zavala Age: 33 yrs Sex: Male : 1990 Arrival Date: 10/13/2023 Time: 18:54 Bed 4 Private MD: Diagnosis: Epileptic seizures related to external causes, not intractable, without status epilepticus;Tachycardia, unspecified;Hypokalemia;Abuse of other non-psychoactive substances Presentation: 10/13 19:04 Chief complaint: Patient states: Out of meds for 1 week. 4 seizures while waiting in ll1 the lobby. Coronavirus screen: Client denies travel out of the [place] in the last 14 days. At this time, the client does not indicate any symptoms associated with coronavirus-19. Ebola Screen: Patient denies travel to an Ebola-affected area in the 21 days before illness onset. Initial Sepsis Screen: Does the patient meet any 2 criteria? No. Patient's initial sepsis screen is negative. Does the patient have a suspected source of infection? No. Patient's initial sepsis screen is negative. Risk Assessment: Do you want to hurt yourself or someone else? Patient reports no desire to harm self or others. Onset of symptoms was October 13, 2023. 19:04 Method Of Arrival: Wheelchair ll1 19:04 Acuity: KEN 2 ll1 Triage Assessment: 19:37 General: Appears comfortable, Behavior is calm, cooperative. Pain: Denies pain. Neuro: rv Level of Consciousness is awake, obeys commands, Oriented to person. Cardiovascular: Capillary refill < 3 seconds Patient's skin is warm and dry. Rhythm is sinus tachycardia. Respiratory: Airway is patent Respiratory effort is even, unlabored. Historical: - Allergies: 19:05 No Known Allergies; ll1 - PMHx: 19:05 Headaches; Depression; Seizures; status epilepticus; ll1 - Immunization history:: Adult Immunizations up to date. - Social history:: Smoking status: Patient denies any tobacco usage or history of. Screenin:37 [facility] ED Fall Risk Assessment (Adult) History of falling in the last 3 months, rv including since admission No falls in past 3 months (0 pts) Score/Fall Risk Level 3 or more points = High Risk Oriented to surroundings, Maintained a safe environment, Educated pt \T\ family on fall prevention, incl call for assistance when getting out of bed, Assessed \T\ reinforced patient's understanding of fall precautions, Provided non-skid footwear, Hourly rounding (assess needs \T\ fall precautionary measures) done, Used ambulatory aids as needed (educated on \T\ assisted with), Used gait belt as appropriate Implemented a Fall Risk Plan of Care, Apply high fall risk patient identification: yellow non skid footwear/ fall signage. Abuse screen: Denies threats or abuse. Denies injuries from another. Nutritional screening: No deficits noted. Tuberculosis screening: No symptoms or risk factors identified. Assessment: 19:33 Reassessment: pt christy three episodes of tonic clonic seizure while in the room. rv tachycardia noted at the rate of 180s. post ictal at this time, VS stable. hr decreased 103 after administering metoprolol IV. established 3 IV at this point. Dr Rodriguez is aware of the situation. seizure precaution applied. awaiting for fosphenytoin, to be administered. Vital Signs: 19:17 BP 133 / 106; Pulse 179; Resp 20; Temp 98.8; Pulse Ox 100% on 2 lpm NC; mb9 19:28 BP 122 / 74; Pulse 106; Resp 18; Pulse Ox 100% 2 lpm ; mb9 22:25 BP 115 / 68; Pulse 103; Resp 20; Temp 98; Pulse Ox 99% on R/A; rv Daphne Coma Score: 19:37 Eye Response: spontaneous(4). Motor Response: obeys commands(6). Verbal Response: rv confused(4). Total: 14. ED Course: 18:58 Patient arrived in ED. im 19:00 EKG done, by ED staff, reviewed by Blue Rodriguez MD. Inserted saline lock: 20 gauge in mb9 right forearm, using aseptic technique. Blood collected. 19:02 Blue Rodriguez MD is Attending Physician. dominik 19:05 Triage completed. ll1 19:06 Arm band placed on Patient placed in an exam room, on a stretcher. ll1 19:12 Rosalinda Anders, ESCOBAR is Primary Nurse. db 19:32 Patient has correct armband on for positive identification. Seizure precautions rv initiated. Client placed on continuous cardiac and pulse oximetry monitoring. NIBP monitoring applied. library monitor on. 19:36 Inserted saline lock: 20 gauge in left forearm, using aseptic technique. Blood rv collected. Inserted saline lock: 22 gauge in left upper arm, using aseptic technique. 19:38 No provider procedures requiring assistance completed. rv 20:20 CT Head Brain wo Cont In Process Unspecified. EDMS 21:47 Luther Christensen MD is Referral Physician. dominik Administered Medications: 19:09 CANCELLED (Duplicate Order): [id number] mg IV at per protocol once dominik 19:15 Drug: LORazepam IM 2 mg IM once Route: IM; Site: left deltoid; rv 20:59 Follow up: Response: No adverse reaction rv 19:20 Drug: Ativan IVP 2 mg IVP once Route: IVP; Site: left upper arm; rv 20:58 Follow up: Response: No adverse reaction rv 19:27 Drug: Metoprolol IVP 5 mg IVP once; Hold for SBP <100 or HR <60. Route: IVP; Site: left mb9 forearm; 20:59 Follow up: Response: No adverse reaction rv 19:29 Drug: NS 0.9% IV 1000 ml IV at 1 bolus Per protocol; 1000 mL bolus Route: IV; Rate: 1 mb9 bolus; Site: left forearm; 20:58 Follow up: IV Status: Completed infusion; IV Intake: 1000ml rv 19:34 Drug: Magnesium Sulfate IVPB 1 grams IVPB once over 2 hrs Route: IVPB; Infused Over: 2 mb9 hrs; Site: right forearm; 19:56 Drug: Fosphenytoin IVPB 1.5 grams IVPB once; (mix in 50 to 100mL NS) Route: IVPB; Site: mb9 left forearm; 20:58 Follow up: Response: No adverse reaction; IV Status: Completed infusion rv 20:58 Drug: NS 0.9% IV 1000 ml IV at 1 bolus Per protocol; 1000 mL bolus Route: IV; Rate: 1 rv bolus; Site: left upper arm; 22:24 Follow up: IV Status: Completed infusion; IV Intake: 1000ml rv 22:24 Drug: Potassium PO Effervescent Tablet 50 mEq PO once; dissolve in 4 ounces of water or rv juice Route: PO; 22:24 Follow up: Response: Medication administered at discharge. rv Medication: 19:38 VIS not applicable for this client. rv Intake: 20:58 IV: 1000ml; Total: 1000ml. rv 22:24 IV: 1000ml; Total: 2000ml. rv Outcome: 21:48 Discharge ordered by . dominik 22:25 Patient left the ED. rv Signatures: Dispatcher [employer] EDBlue Cintron MD MD cha Vicente, Ronaldo RN RN rv Vipul Schafer RN RN ll1 Rosalinda Anders RN RN db Jodi, Venice Fuentes, RN RN mb9 Awa Kaiser
--- NOTE | 2023-10-13 21:49 | EDPHYS ---
Physician Documentation [facility] Name: Alfie Zavala Age: 33 yrs Sex: Male : 1990 Arrival Date: 10/13/2023 Time: 18:54 Bed 4 Private MD: Blue Baptiste HPI: 10/13 20:55 This 33 yrs old Male presents to ER via Wheelchair with complaints of Seizure. dominik 20:55 The patient presents with a history of multiple seizures, an unknown number. Character dominik of seizure(s): Loss of consciousness: the patient did not lose consciousness, Motor activity: generalized. Seizure onset: today. Context: the seizure(s) was witnessed, by family. Seizure Hx: Cause: unknown, Seizure medications: phenytoin. Associated injury: The patient did not suffer any apparent associated injury. Current symptoms: Currently, the patient is not experiencing any symptoms. The patient has experienced similar episodes in the past, several times. Historical: - Allergies: 19:05 No Known Allergies; ll1 - PMHx: 19:05 Headaches; Depression; Seizures; status epilepticus; ll1 - Immunization history:: Adult Immunizations up to date. - Social history:: Smoking status: Patient denies any tobacco usage or history of. ROS: 20:55 Constitutional: Negative for fever, chills, and weight loss, Eyes: Negative for injury, dominik pain, redness, and discharge, ENT: Negative for injury, pain, and discharge, Neck: Negative for injury, pain, and swelling, Respiratory: Negative for shortness of breath, cough, wheezing, and pleuritic chest pain, Abdomen/GI: Negative for abdominal pain, nausea, vomiting, diarrhea, and constipation, Back: Negative for injury and pain, : Negative for injury, bleeding, discharge, and swelling, MS/Extremity: Negative for injury and deformity, Skin: Negative for injury, rash, and discoloration, Psych: Negative for depression, anxiety, suicide ideation, homicidal ideation, and hallucinations, Allergy/Immunology: Negative for hives, rash, and allergies, Endocrine: Negative for neck swelling, polydipsia, polyuria, polyphagia, and marked weight changes, 20:55 Cardiovascular: Positive for palpitations, 20:55 Neuro: Positive for seizure activity, Exam: 20:55 Constitutional: This is a well developed, well nourished patient who is awake, alert, dominik and in no acute distress. Head/Face: Normocephalic, atraumatic. Eyes: Pupils equal round and reactive to light, extra-ocular motions intact. Lids and lashes normal. Conjunctiva and sclera are non-icteric and not injected. Cornea within normal limits. Periorbital areas with no swelling, redness, or edema. ENT: Nares patent. No nasal discharge, no septal abnormalities noted. Tympanic membranes are normal and external auditory canals are clear. Oropharynx with no redness, swelling, or masses, exudates, or evidence of obstruction, uvula midline. Mucous membranes moist. Neck: Trachea midline, no thyromegaly or masses palpated, and no cervical lymphadenopathy. Supple, full range of motion without nuchal rigidity, or vertebral point tenderness. No Meningismus. Chest/axilla: Normal chest wall appearance and motion. Nontender with no deformity. No lesions are appreciated. Respiratory: Lungs have equal breath sounds bilaterally, clear to auscultation and percussion. No rales, rhonchi or wheezes noted. No increased work of breathing, no retractions or nasal flaring. Abdomen/GI: Soft, non-tender, with normal bowel sounds. No distension or tympany. No guarding or rebound. No evidence of tenderness throughout. Back: No spinal tenderness. No costovertebral tenderness. Full range of motion. Male : Normal genitalia with no discharge or lesions. Skin: Warm, dry with normal turgor. Normal color with no rashes, no lesions, and no evidence of cellulitis. MS/ Extremity: Pulses equal, no cyanosis. Neurovascular intact. Full, normal range of motion. Psych: Awake, alert, with orientation to person, place and time. Behavior, mood, and affect are within normal limits. 20:55 Cardiovascular: Rate: tachycardic, actual rate is 140 bpm, Rhythm: regular, Pulses: Pulses are 4+ in bilateral radial, brachial, femoral, popliteal, posterior tibial and and dorsalis pedis arteries.. Heart sounds: normal, Edema: is not appreciated, JVD: is not appreciated, 20:55 ECG was reviewed by the Attending Physician. Vital Signs: 19:17 BP 133 / 106; Pulse 179; Resp 20; Temp 98.8; Pulse Ox 100% on 2 lpm NC; mb9 19:28 BP 122 / 74; Pulse 106; Resp 18; Pulse Ox 100% 2 lpm ; mb9 22:25 BP 115 / 68; Pulse 103; Resp 20; Temp 98; Pulse Ox 99% on R/A; rv Nino Coma Score: 19:37 Eye Response: spontaneous(4). Motor Response: obeys commands(6). Verbal Response: rv confused(4). Total: 14. MDM: 19:02 Patient medically screened. [facility] 20:58 Differential diagnosis: drug overdose, cardiac arrhythmia, seizure, TIA. Data reviewed: [facility] vital signs, nurses notes, lab test result(s), EKG, radiologic studies, CT scan, plain films. Consideration of Admission/Observation Patient was admitted/placed on observation. Escalation of care including admission/observation considered. I considered the following discharge prescriptions or medication management in the emergency department Medications were administered in the Emergency Department. See MAR. Independent interpretation of the following test(s) in the Emergency Department EKG: See my EKG interpretation above. Test considered but Not performed: MRI: no mri brain. Historians other than the Patient: Family Member: family. Care significantly affected by the following chronic conditions: christy, depression,seizure. Counseling: I had a detailed discussion with the patient and/or guardian regarding the historical points, exam findings, and any diagnostic results supporting the discharge/admit diagnosis, lab results, radiology results, the need for outpatient follow up, for definitive care, a family practitioner, a neurologist. 10/13 19:03 Order name: Acetaminophen; Complete Time: 20:51 [facility] 10/13 19:03 Order name: Basic Metabolic Panel; Complete Time: 20:51 [facility] 10/13 19:03 Order name: CBC with Diff; Complete Time: 20:51 [facility] 10/13 19:03 Order name: ETOH Level; Complete Time: 20:51 [facility] 10/13 19:03 Order name: Hepatic Function; Complete Time: 20:51 [facility] 10/13 19:03 Order name: PT-INR; Complete Time: 20:51 [facility] 10/13 19:03 Order name: Ptt, Activated; Complete Time: 20:51 [facility] 10/13 19:03 Order name: Salicylate; Complete Time: 20:51 [facility] 10/13 19:03 Order name: Urinalysis w/ reflexes [facility] 10/13 19:03 Order name: Urine Drug Screen; Complete Time: 21:42 [facility] 10/13 19:47 Order name: CT Head Brain wo Cont; Complete Time: 21:42 [facility] 10/13 19:03 Order name: EKG; Complete Time: 19:04 [facility] 10/13 19:39 Order name: EKG; Complete Time: 19:40 [facility] 10/13 19:03 Order name: EKG - Nurse/Tech; Complete Time: 19:29 [facility] 10/13 19:03 Order name: IV Saline Lock; Complete Time: 19:29 [facility] 10/13 19:03 Order name: Labs collected and sent; Complete Time: 19:29 [facility] 10/13 19:03 Order name: Suicide Screening ([place]); Complete Time: 19:29 [facility] 10/13 19:03 Order name: Seizure Precautions; Complete Time: 19:16 [facility] 10/13 19:39 Order name: EKG - Nurse/Tech; Complete Time: 20:03 [facility] EC:55 Rate is 181 beats/min. Rhythm is regular. QRS [place] is Normal. [place] interval is normal. [facility] QRS interval is normal. QT interval is normal. No Q waves. T waves are Normal. No ST changes noted. Clinical impression: Sinus tachycardia and No evidence of ischemia. Interpreted by me. Reviewed by me. Administered Medications: 19:09 CANCELLED (Duplicate Order): [id number] mg IV at per protocol once dominik 19:15 Drug: LORazepam IM 2 mg IM once Route: IM; Site: left deltoid; rv 20:59 Follow up: Response: No adverse reaction rv 19:20 Drug: Ativan IVP 2 mg IVP once Route: IVP; Site: left upper arm; rv 20:58 Follow up: Response: No adverse reaction rv 19:27 Drug: Metoprolol IVP 5 mg IVP once; Hold for SBP <100 or HR <60. Route: IVP; Site: left mb9 forearm; 20:59 Follow up: Response: No adverse reaction rv 19:29 Drug: NS 0.9% IV 1000 ml IV at 1 bolus Per protocol; 1000 mL bolus Route: IV; Rate: 1 mb9 bolus; Site: left forearm; 20:58 Follow up: IV Status: Completed infusion; IV Intake: 1000ml rv 19:34 Drug: Magnesium Sulfate IVPB 1 grams IVPB once over 2 hrs Route: IVPB; Infused Over: 2 mb9 hrs; Site: right forearm; 19:56 Drug: Fosphenytoin IVPB 1.5 grams IVPB once; (mix in 50 to 100mL NS) Route: IVPB; Site: mb9 left forearm; 20:58 Follow up: Response: No adverse reaction; IV Status: Completed infusion rv 20:58 Drug: NS 0.9% IV 1000 ml IV at 1 bolus Per protocol; 1000 mL bolus Route: IV; Rate: 1 rv bolus; Site: left upper arm; 22:24 Follow up: IV Status: Completed infusion; IV Intake: 1000ml rv 22:24 Drug: Potassium PO Effervescent Tablet 50 mEq PO once; dissolve in 4 ounces of water or rv juice Route: PO; 22:24 Follow up: Response: Medication administered at discharge. rv Disposition Summary: 10/13/23 21:48 Discharge Ordered Notes: Location: Home dominik Problem: new dominik Symptoms: have improved dominik Condition: Stable dominik Diagnosis - Epileptic seizures related to external causes, not intractable, without status dominik epilepticus - Tachycardia, unspecified dominik - Hypokalemia dominik - Abuse of other non-psychoactive substances dominik Followup: dominik - With: Private Physician - When: 2 - 3 days - Reason: Recheck today's complaints, Continuance of care, Re-evaluation by your physician Followup: dominik - With: Luther Christensen MD - When: 2 - 3 days - Reason: Recheck today's complaints, Re-evaluation by your physician Discharge Instructions: - Discharge Summary Sheet dominik - Potassium Content of Foods dominik - Epilepsy dominik - Seizure, Adult dominik - Seizure, Adult, [id number] dominik - Epilepsy, [id number] dominik - Hypokalemia [facility] Forms: - Medication Reconciliation Form dominik - Thank You Letter dominik - Antibiotic Education dominik - Prescription Opioid Use dominik - Patient Portal Instructions dominik - Leadership Thank You Letter [facility] Prescriptions: - Diastat 2.5 mg Rectal Kit - apply 10 milligram RECTAL route once as needed for seizure activity; 2 Pack; dominik Refills: 0, Product Selection Permitted - Dilantin Kapseal 100 mg Oral capsule - take 1 capsule ORAL route every 8 hours; 90 capsule; Refills: 0, Product dominik Selection Permitted Signatures: Dispatcher [employer] Blue Marx MD MD cha Vicente, Ronaldo, RN RN rv Vipul Schafer RN RN ll1 Venice Zapata, RN RN mb9 Corrections: (The following items were deleted from the chart) : 19:03 Keppra IV 1000 mg IV at per protocol once ordered. dominik lehman
[2023-10-13] MEDS ORDERED: POTASSIUM 25 MEQ EFFERV TAB ONE (22:33)
[2023-10-13 22:43] VITALS: BP 115/68; TEMP 98; O2SAT 99
--- NOTE | 2023-10-14 15:12 | EKG ---
Test Date: 2023-10-13 Test Time: 21:09:14 Dental Hygienist Mobile Coordinator: YANNICK MEASUREMENT RESULTS: Intervals: Rate: 107 KS: 124 QRSD: 86 QT: 310 QTc: 413 [place]: P: 56 KS: 124 QRS: 58 T: -6 INTERPRETIVE STATEMENTS: Sinus tachycardia Otherwise normal ECG Compared to ECG 10/13/2023 19:08:58 Myocardial infarct finding no longer present Electronically Signed On 10-14-23 15:10:33 INTERNAL GRINDER by Jake Chapa
--- NOTE | 2023-10-14 15:13 | EKG ---
Test Date: 2023-10-13 Test Time: 19:08:58 Hat Lining Paster: ANA MEASUREMENT RESULTS: Intervals: Rate: 181 FL: 112 QRSD: 74 QT: 270 QTc: 468 [place]: P: FL: 112 QRS: 32 T: 15 INTERPRETIVE STATEMENTS: Sinus tachycardia Anterior infarct, age undetermined Abnormal ECG Compared to ECG 01/10/2023 11:35:19 No significant changes Electronically Signed On 10-14-23 15:10:47 21 DEALER by Jake Chapa
== END 2023-10-13 22:25 | disposition home or self-care (01) ==
LOC: ER 18:54
DX: G40.509 Epileptic seizures related to external causes, not intractable, without status epilepticus (principal); R00.0 Tachycardia, unspecified; E87.6 Hypokalemia; F55.8 Abuse of other non-psychoactive substances
CPT/HCPCS: 36415; 70450; 80048; 80076; 80143; 80179; 80307; 81001; 82077; 85025; 85610; 85730; 93005; 96372; 99285; J3475; J7030; Q2009

== ENCOUNTER 2024-05-24 09:37 | Emergency (ER) | payer SELFPAY ==
[2024-05-24] MEDS ORDERED: NA CHLORIDE 0.9% 1,000 ML ONE (09:59)
--- NOTE | 2024-05-24 10:17 | RAD REPORT ---
EXAM DESCRIPTION: CT - Head Brain Wo Cont - 05/24/2024 10:07 am CLINICAL HISTORY: Seizure COMPARISON: Prior exams were unavailable for comparison TECHNIQUE: Computed axial tomography of the head was obtained. IV contrast was not requested. All CT scans are performed using dose optimization technique as appropriate and may include automated exposure control or mA/KV adjustment according to patient size. FINDINGS: An intracranial bleed is not seen The ventricles are normal in caliber No significant hypodense areas within the brain visualized Mild cerebellar tonsillar ectopia is present No extra-axial fluid collection is noted. Fluid within the sinuses/ mastoids is not seen IMPRESSION: No acute intracranial abnormality is seen If patient's symptoms persist MRI of the brain would be recommended
[2024-05-24 10:24] LABS: Absolute Lymphocytes (CBC) 2.5 K/uL (0.7-4.9); Absolute Monocytes 0.7 K/uL (0.1-1.3); Absolute Neutrophil 2.5 K/uL (1.8-8.0); Basophils % 0.6 % (0-1.3); Eosinophils % 0.1 % (0-4.4); Hematocrit 53.5 % (39.6-49.0); Hemoglobin 17.9 g/dL (13.6-17.9); Lymphocytes % 43.2 % (15.3-44.8); MCHC 33.5 g/dL (32.0-36.0); MCV 89.7 fL (80-100); MPV 8.9 fL (7.6-11.3); Monocytes % 11.7 % (3.3-12.3); Neutrophils % 44.4 % (41.7-73.7); Nucleated Red Blood Cells % 0.3 % (0-0); Platelets 203 thou/uL (152-406); RBC Red Blood Cell Count 5.97 M/uL (4.33-5.43); Red Cell Distribution Width 13.2 % (12.1-15.2)
[2024-05-24 10:29] LABS: PT Prothrombin Time 12.8 SECONDS (9.4-12.5); PTT, Activated Partial Thromb 37.9 SECONDS (24.3-36.9); Protime INR 1.17
[2024-05-24] MEDS ORDERED: FOSPHENYTOIN PE 500 MG/10 ML VIAL ONE (10:38)
[2024-05-24] MEDS ORDERED: NA CHLORIDE 0.9% 100 ML ONE (10:38)
[2024-05-24] MEDS ORDERED: LORazepam 2 MG/ML VIAL ONE (10:39)
[2024-05-24] MEDS ORDERED: ONDANSETRON 4 MG/2 ML VIAL ONE (10:39)
[2024-05-24 10:57] LABS: ALT/SGPT 57 U/L (16-61); AST/SGOT 37 U/L (15-37); Albumin 4.5 g/dL (3.4-5.0); Albumin/Globulin Ratio 0.9 (1.1-1.8); Alkaline Phosphatase 116 U/L (45-117); Anion Gap 15.6 mEq/L (5.0-15.0); BUN Blood Urea Nitrogen 20 mg/dL (7-18); Bicarbonate 21 mEq/L (21-32); Bilirubin Direct 0.2 mg/dL (0-0.2); Bilirubin Indirect, Calculated 0.3 mg/dL (0.2-0.8); Bilirubin Total 0.5 mg/dL (0.2-1.0); Glomerular Filtration Rate 63 ml/min (=/>90); Glucose Level 127 mg/dL (74-106); Potassium 3.6 mEq/L (3.5-5.1); Protein, Total 9.5 g/dL (6.4-8.2); Sodium Level 134 mEq/L (136-145)
[2024-05-24] MEDS ORDERED: TOPIRAMATE 100 MG TAB PO ONE (12:00)
--- NOTE | 2024-05-24 12:09 | ER ---
Nurse's Notes [facility] Name: Alfie Zavala Age: 34 yrs Sex: Male : 1990 Arrival Date: 05/24/2024 Time: 09:37 Bed 2 Private MD: Diagnosis: Epileptic seizures related to external causes, not intractable, without status epilepticus-poorly compliant Presentation: 05/24 09:56 Chief complaint: Patient states: Seizure last night, out of seizure medications. ll1 Coronavirus screen: Client denies travel out of the [place] in the last 14 days. At this time, the client does not indicate any symptoms associated with coronavirus-19. Ebola Screen: Patient denies travel to an Ebola-affected area in the 21 days before illness onset. Initial Sepsis Screen: Does the patient meet any 2 criteria? No. Patient's initial sepsis screen is negative. Does the patient have a suspected source of infection? No. Patient's initial sepsis screen is negative. Risk Assessment: Do you want to hurt yourself or someone else? Patient reports no desire to harm self or others. Onset of symptoms was May 23, 2024. 09:56 Method Of Arrival: Ambulatory ll1 09:56 Acuity: KEN 3 ll1 Triage Assessment: 12:47 General: Appears. ld1 12:48 General: Behavior is calm, cooperative. iw Historical: - Allergies: 09:57 No Known Allergies; ll1 - PMHx: 09:57 Depression; Headaches; Seizures; status epilepticus; ll1 - Immunization history:: Adult Immunizations up to date. - Infectious Disease History:: Denies. - Social history:: Smoking status: Patient denies any tobacco usage or history of. - Family history:: not pertinent. Screenin:[facility] ED Fall Risk Assessment (Adult) History of falling in the last 3 months, iw including since admission No falls in past 3 months (0 pts) Confusion or Disorientation No (0 pts) Intoxicated or Sedated No (0 pts) Impaired Gait No (0 pts) Mobility Assist Device Used No (0 pt) Altered Elimination Yes (1 pt) Score/Fall Risk Level 0 - 2 = Low Risk Oriented to surroundings, Maintained a safe environment. Abuse screen: Denies threats or abuse. Denies injuries from another. Nutritional screening: No deficits noted. Tuberculosis screening: No symptoms or risk factors identified. Assessment: 10:18 Reassessment: seizure activity while in CT. pt transported to ER bed 2 , A\T\OX4, VSS. pt iw states he has been out of his dilantin and topiramate X 1 month. 10:51 Reassessment: Patient appears in no apparent distress at this time. Patient and/or iw family updated on plan of care and expected duration. Pain level reassessed. Patient is alert, oriented x 3, equal unlabored respirations, skin warm/dry/pink. 12:48 Reassessment: Patient appears in no apparent distress at this time. Patient and/or iw family updated on plan of care and expected duration. Pain level reassessed. Patient is alert, oriented x 3, equal unlabored respirations, skin warm/dry/pink. Patient states feeling better. Patient states symptoms have improved. Neuro: Level of Consciousness is awake, alert, obeys commands, Moves all extremities. Full function. Vital Signs: 09:56 Resp 17; ll1 10:34 BP 111 / 88; Pulse 111; Resp 18; Temp 97(TE); Pulse Ox 91% on R/A; iw 12:47 BP 124 / 87; Pulse 90; Resp 18; Pulse Ox 96% on R/A; ld1 ED Course: 09:39 Patient arrived in ED. im 09:48 Blue Rodriguez MD is Attending Physician. dominik 09:57 Triage completed. ll1 09:57 Arm band placed on. ll1 09:59 Venice Lu, ESCOBAR is Primary Nurse. mb9 10:00 Seizure precautions initiated. iw 10:09 CT Head Brain wo Cont In Process Unspecified. EDMS 10:17 Jimena Burgos, ESCOBAR is Primary Nurse. iw 10:35 Initial lab(s) drawn, by az, sent to lab. Inserted saline lock: 20 gauge in left hand, iw using aseptic technique. Blood collected. 10:51 Patient has correct armband on for positive identification. Client placed on continuous iw cardiac and pulse oximetry monitoring. NIBP monitoring applied. clinical research monitor on. 12:08 Luther Christensen MD is Referral Physician. dominik 12:47 No provider procedures requiring assistance completed. IV discontinued, intact, ld1 bleeding controlled, No redness/swelling at site. Administered Medications: 10:17 Drug: NS 0.9% IV 1000 ml IV at 1 bolus Per protocol; 1000 mL bolus Route: IV; Rate: 1 iw bolus; Site: left hand; 11:30 Follow up: IV Status: Completed infusion iw 10:50 Drug: Fosphenytoin IVPB 1 grams IVPB once; (mix in 50 to 100mL NS) Route: IVPB; Site: left hand; 18:10 Follow up: IV Status: Completed infusion iw 12:40 Drug: Topamax PO 100 mg PO once Route: PO; ld1 12:55 Follow up: Response: No adverse reaction iw 12:40 Not Given (Patient Refused): ativan2 mg IVP once ld1 12:40 Drug: Phenytoin Sodium Extended PO 300 mg PO once Route: PO; ld1 13:00 Follow up: Response: No adverse reaction iw Medication: 12:48 VIS not applicable for this client. iw Outcome: 12:09 Discharge ordered by . dominik 12:48 Discharged to home ambulatory, with family, iw 12:48 Condition: good 12:48 Discharge instructions given to patient, Instructed on discharge instructions, follow up and referral plans. medication usage, Demonstrated understanding of instructions, follow-up care, medications, Prescriptions given X 2, 12:49 Patient left the ED. iw Signatures: Dispatcher [employer] EDMS Blue Rodriguez MD MD cha Williams, Irene, RN RN iw Vipul Schafer RN RN ll1 Deepti Fuentes RN RN ld1 Venice Lu RN RN mb9 Awa Kaiser Corrections: (The following items were deleted from the chart) 12:48 10:34 BP 111 / 88; Pulse 111bpm; Resp 18bpm; Pulse Ox 91% RA; iw iw
--- NOTE | 2024-05-24 12:09 | EDPHYS ---
Physician Documentation [facility] Name: Alfie Zavala Age: 34 yrs Sex: Male : 1990 Arrival Date: 05/24/2024 Time: 09:37 Bed 2 Private MD: Blue Baptiste HPI: 05/24 12:04 This 34 yrs old Male presents to ER via Ambulatory with complaints of Probable dominik Seizure. 12:04 The patient presents with a history of multiple seizures, a total of 2. Character of dominik seizure(s): Loss of consciousness: the patient experienced loss of consciousness, Motor activity: generalized, Incontinence: none, Apnea: the patient did not experience apnea, Circulation: the patient did not experience evidence of pulse disturbance. Seizure onset: this morning. Context: the seizure(s) was witnessed, by family. Seizure Hx: Cause: unknown. Associated injury: The patient did not suffer any apparent associated injury. Current symptoms: Currently, the patient is not experiencing any symptoms, the patient feels back to baseline. The patient has experienced similar episodes in the past, multiple times. Historical: - Allergies: 09:57 No Known Allergies; ll1 - PMHx: 09:57 Depression; Headaches; Seizures; status epilepticus; ll1 - Immunization history:: Adult Immunizations up to date. - Infectious Disease History:: Denies. - Social history:: Smoking status: Patient denies any tobacco usage or history of. - Family history:: not pertinent. ROS: 12:04 Constitutional: Negative for fever, chills, and weight loss, Eyes: Negative for injury, dominik pain, redness, and discharge, ENT: Negative for injury, pain, and discharge, Neck: Negative for injury, pain, and swelling, Cardiovascular: Negative for chest pain, palpitations, and edema, Respiratory: Negative for shortness of breath, cough, wheezing, and pleuritic chest pain, Abdomen/GI: Negative for abdominal pain, nausea, vomiting, diarrhea, and constipation, Back: Negative for injury and pain, : Negative for injury, bleeding, discharge, and swelling, MS/Extremity: Negative for injury and deformity, Skin: Negative for injury, rash, and discoloration, Psych: Negative for depression, anxiety, suicide ideation, homicidal ideation, and hallucinations, Allergy/Immunology: Negative for hives, rash, and allergies, Endocrine: Negative for neck swelling, polydipsia, polyuria, polyphagia, and marked weight changes, Hematologic/Lymphatic: Negative for swollen nodes, abnormal bleeding, and unusual bruising, 12:04 Neuro: Positive for seizure activity, Exam: 12:04 Constitutional: This is a well developed, well nourished patient who is awake, alert, dominik and in no acute distress. Head/Face: Normocephalic, atraumatic. Eyes: Pupils equal round and reactive to light, extra-ocular motions intact. Lids and lashes normal. Conjunctiva and sclera are non-icteric and not injected. Cornea within normal limits. Periorbital areas with no swelling, redness, or edema. ENT: Nares patent. No nasal discharge, no septal abnormalities noted. Tympanic membranes are normal and external auditory canals are clear. Oropharynx with no redness, swelling, or masses, exudates, or evidence of obstruction, uvula midline. Mucous membranes moist. Neck: Trachea midline, no thyromegaly or masses palpated, and no cervical lymphadenopathy. Supple, full range of motion without nuchal rigidity, or vertebral point tenderness. No Meningismus. Chest/axilla: Normal chest wall appearance and motion. Nontender with no deformity. No lesions are appreciated. Respiratory: Lungs have equal breath sounds bilaterally, clear to auscultation and percussion. No rales, rhonchi or wheezes noted. No increased work of breathing, no retractions or nasal flaring. Abdomen/GI: Soft, non-tender, with normal bowel sounds. No distension or tympany. No guarding or rebound. No evidence of tenderness throughout. Back: No spinal tenderness. No costovertebral tenderness. Full range of motion. Male : Normal genitalia with no discharge or lesions. Skin: Warm, dry with normal turgor. Normal color with no rashes, no lesions, and no evidence of cellulitis. MS/ Extremity: Pulses equal, no cyanosis. Neurovascular intact. Full, normal range of motion. Neuro: Awake and alert, GCS 15, oriented to person, place, time, and situation. Cranial nerves II-XII grossly intact. Motor strength 5/5 in all extremities. Sensory grossly intact. Cerebellar exam normal. Normal gait. Psych: Awake, alert, with orientation to person, place and time. Behavior, mood, and affect are within normal limits. 12:04 Cardiovascular: Rate: tachycardic, actual rate is 137 bpm, Rhythm: regular, Pulses: no pulse deficits are appreciated, Heart sounds: normal, normal S1and S2, no S3 or S4, no murmur, no rub, no gallop, Edema: is not appreciated, JVD: is not appreciated, 12:04 ECG was reviewed by the Attending Physician. Vital Signs: 09:56 Resp 17; ll1 10:34 BP 111 / 88; Pulse 111; Resp 18; Temp 97(TE); Pulse Ox 91% on R/A; iw 12:47 BP 124 / 87; Pulse 90; Resp 18; Pulse Ox 96% on R/A; ld1 MDM: 09:48 Patient medically screened. [facility] 12:07 Differential diagnosis: cerebral vascular accident, drug overdose, cardiac arrhythmia, dominik seizure, TIA. Data reviewed: vital signs, nurses notes, lab test result(s), EKG, radiologic studies, CT scan. Consideration of Admission/Observation Escalation of care including admission/observation considered. I considered the following discharge prescriptions or medication management in the emergency department Medications were administered in the Emergency Department. See MAR. Independent interpretation of the following test(s) in the Emergency Department EKG: See my EKG interpretation above. Test considered but Not performed: MRI: no mri brain. Historians other than the Patient: pt well informed. Care significantly affected by the following chronic conditions: seizures, depression, christy. 05/24 09:49 Order name: Acetaminophen; Complete Time: 12:05/24 09:49 Order name: Basic Metabolic Panel; Complete Time: 12:05/24 09:49 Order name: CBC with Diff; Complete Time: 12:05/24 09:49 Order name: ETOH Level; Complete Time: 12:05/24 09:49 Order name: Hepatic Function; Complete Time: 12:05/24 09:49 Order name: PT-INR; Complete Time: 12:05/24 09:49 Order name: Ptt, Activated; Complete Time: 12:05/24 09:49 Order name: Salicylate; Complete Time: 12:05/24 09:49 Order name: CT Head Brain wo Cont; Complete Time: 12:05/24 09:49 Order name: EKG - Nurse/Tech; Complete Time: 10:17 dominik 05/24 09:49 Order name: IV Saline Lock; Complete Time: 10: dominik 05/24 09:49 Order name: Labs collected and sent; Complete Time: : dominik 05/24 10:30 Order name: Seizure Precautions; Complete Time: 12:48 [facility] 05/24 12:04 Order name: PO challenge: juice; Complete Time: 12:40 dominik EC:04 Rate is 137 beats/min. Rhythm is regular. QRS [place] is Normal. [place] interval is normal. dominik QRS interval is normal. QT interval is normal. No Q waves. T waves are Normal. No ST changes noted. Clinical impression: Sinus tachycardia and No evidence of ischemia. Interpreted by me. Reviewed by me. Administered Medications: 10:17 Drug: NS 0.9% IV 1000 ml IV at 1 bolus Per protocol; 1000 mL bolus Route: IV; Rate: 1 iw bolus; Site: left hand; 11:30 Follow up: IV Status: Completed infusion iw 10:50 Drug: Fosphenytoin IVPB 1 grams IVPB once; (mix in 50 to 100mL NS) Route: IVPB; Site: iw left hand; 18:10 Follow up: IV Status: Completed infusion iw 12:40 Drug: Topamax PO 100 mg PO once Route: PO; ld1 12:55 Follow up: Response: No adverse reaction iw 12:40 Not Given (Patient Refused): ativan2 mg IVP once ld1 12:40 Drug: Phenytoin Sodium Extended PO 300 mg PO once Route: PO; ld1 13:00 Follow up: Response: No adverse reaction iw Disposition Summary: 05/24/24 12:09 Discharge Ordered Notes: Location: Home dominik Problem: new dominik Symptoms: have improved dominik Condition: Stable dominik Diagnosis - Epileptic seizures related to external causes, not intractable, without status dominik epilepticus - poorly compliant Followup: dominik - With: Private Physician - When: 2 - 3 days - Reason: Recheck today's complaints, Continuance of care, Re-evaluation by your physician Followup: dominik - With: Luther Christensen MD - When: 2 - 3 days - Reason: Recheck today's complaints, Re-evaluation by your physician Discharge Instructions: - Discharge Summary Sheet dominik - Epilepsy dominik - Seizure, Adult dominik - Seizure, Adult, [id number] dominik Forms: - Medication Reconciliation Form dominik - Antibiotic Education dominik - Prescription Opioid Use dominik - Patient Portal Instructions dominik - Leadership Thank You Letter [facility] Prescriptions: - Topamax 100 mg Oral tablet - take 1 tablet ORAL route every 12 hours; 40 tablet; Refills: 0, Product dominik Selection Permitted - Dilantin Kapseal 100 mg Oral capsule - take 1 capsule ORAL route every 8 hours; 60 capsule; Refills: 0, Product dominik Selection Permitted Signatures: Dispatcher [employer] EDMS Blue Rodriguez MD MD cha Williams, Irene, RN RN iw Vipul Schafer RN RN ll1 Deepti Fuentes RN RN ld1 Corrections: (The following items were deleted from the chart) 09:49 09:49 ACETAMINOPHEN+C.LAB.BRZ ordered. EDMS EDMS 09:49 09:49 BASIC METABOLIC PANEL+C.LAB.BRZ ordered. EDMS EDMS 09:49 09:49 CBC+H.LAB.BRZ ordered. EDMS EDMS 09:49 09:49 ETHANOL+C.LAB.BRZ ordered. EDMS EDMS 09:49 09:49 HEPATIC FUNCTION+C.LAB.BRZ ordered. EDMS EDMS 09:49 09:49 PROTIME (+INR)+COAG.LAB.BRZ ordered. EDMS EDMS 09:49 09:49 PTT, ACTIVATED+COAG.LAB.BRZ ordered. EDMS EDMS 09:49 09:49 SALICYLATE+C.LAB.BRZ ordered. EDMS EDMS 09:49 09:49 Urinalysis+U.LAB.BRZ ordered. EDMS EDMS 09:49 09:49 URINE DRUG SCREEN+UC.LAB.BRZ ordered. EDMS EDMS 09:49 09:49 Head Brain Wo Cont+CT.RAD.BRZ ordered. EDMS EDMS 10:18 09:49 Suicide Screening ([place]) ordered. dominik peguero
[2024-05-24] MEDS ORDERED: PHENYTOIN ER 100 MG CAP PO ONE ×2 (12:23→13:00)
[2024-05-24 13:09] VITALS: TEMP 97
[2024-05-24 13:26] VITALS: BP 124/87; O2SAT 96
--- NOTE | 2024-05-25 10:56 | EKG ---
Test Date: 2024-05-24 Test Time: 10:11:26 [employer]: CARLI MEASUREMENT RESULTS: Intervals: Rate: 137 MT: 144 QRSD: 74 QT: 286 QTc: 431 [place]: P: 51 MT: 144 QRS: 78 T: 31 INTERPRETIVE STATEMENTS: Sinus tachycardia Otherwise normal ECG Compared to ECG 10/13/2023 21:09:14 No significant changes Electronically Signed On 05-25-24 10:54:52 CDT by Leonardo Del Valle
== END 2024-05-24 12:49 | disposition home or self-care (01) ==
LOC: ER 09:37
DX: G40.509 Epileptic seizures related to external causes, not intractable, without status epilepticus (principal)
CPT/HCPCS: 36415; 70450; 80048; 80076; 80143; 80179; 82077; 85025; 85610; 85730; 93005; 96361; 96365; 96366; 99285; J2405; J7030; Q2009

== ENCOUNTER 2024-09-03 15:22 | Emergency (ER) | payer SELFPAY ==
--- NOTE | 2024-09-03 15:40 | EDPHYS ---
Physician Documentation [facility] Name: Alfie Zavala Age: 34 yrs Sex: Male : 1990 Arrival Date: 09/03/2024 Time: 15:22 Bed 14 Private MD: ED Physician Blue Rodriguez HPI: 09/03 15:57 This 34 yrs old Male presents to ER via Wheelchair with complaints of Probable sb4 Seizure. 15:57 Patient reports history of epilepsy, states he has been out of all of his medications sb4 for about 3 days. Medications included Ambien, Abilify, Topamax, Effexor, and Depakote. States that he has not been able to sleep in 3 days because he has not had the Ambien and had a flareup of his allergies. States he was trying to go to sleep today when he had a seizure. He will oriented and he was taken to the ED by his family member. He states that he feels okay now just a little foggy in his head. He is requesting a refill of his medications. Historical: - Allergies: 15:26 No Known Allergies; rs5 - PMHx: 15:26 Depression; Headaches; Seizures; status epilepticus; rs5 - Immunization history:: Adult Immunizations up to date. - Infectious Disease History:: Denies. - Social history:: Smoking status: Patient denies any tobacco usage or history of. ROS: 15:57 Constitutional: Negative for fever, chills, and weight loss, sb4 15:57 Neuro: Positive for seizure activity, 15:57 All other systems are negative, Exam: 15:57 Head/Face: Normocephalic, atraumatic. Eyes: Extra-ocular motions intact. Periorbital sb4 areas with no swelling, redness, or edema. ENT: Mucous membranes moist. Skin: Warm, dry with normal turgor. Normal color with no rashes, no lesions, and no evidence of cellulitis. MS/ Extremity: Pulses equal, no cyanosis. Neurovascular intact. Full, normal range of motion. Neuro: Awake and alert, GCS 15, oriented to person, place, time, and situation. Motor strength 5/5 in all extremities. Sensory grossly intact. 15:57 Constitutional: The patient appears alert, awake, obese, sleepy Vital Signs: 15:30 BP 123 / 87; Pulse 107; Resp 18; Temp 98.4; Pulse Ox 96% ; me1 15:35 BP 141 / 93; Pulse 124; Resp 18; Temp 97.4; Pulse Ox 98% on R/A; Weight 124.74 kg; ll1 Height 5 ft. 11 in. ; Pain 0/10; 15:35 Body Mass Index 38.35 (124.74 kg, 180.34 cm) ll1 15:35 Pain Scale: Adult ll1 Savage Coma Score: 15:37 Eye Response: spontaneous(4). Motor Response: obeys commands(6). Verbal Response: ll1 oriented(5). Total: 15. MDM: 15:26 Medical Screening Exam initiated sb4 15:57 Data reviewed: vital signs, nurses notes, and as a result, I will discharge patient. sb4 Counseling: I had a detailed discussion with the patient and/or guardian regarding the historical points, exam findings, and any diagnostic results supporting the discharge/admit diagnosis, the need for outpatient follow up, for definitive care, a neurologist, to return to the emergency department if symptoms worsen or persist or if there are any questions or concerns that arise at home. ED course: Seizure was most likely triggered by lack of sleep. There are no other alarming symptoms upon his examination. I will refill his medications and advised him to establish care with a PCP in [place]. He understand and will return for any new or worsening symptoms. Administered Medications: No medications were administered Disposition Summary: 09/03/24 15:39 Discharge Ordered Notes: Location: Home sb4 Problem: an acute exacerbation sb4 Symptoms: have improved sb4 Condition: Stable sb4 Diagnosis - Epileptic seizures related to external causes, not intractable sb4 Followup: sb4 - With: Earle Franklin, DO - When: 1 week - Reason: Recheck today's complaints, Continuance of care, Re-evaluation by your physician Discharge Instructions: - Discharge Summary Sheet sb4 - Epilepsy, [id number] sb4 Forms: - Patient Portal Instructions sb4 - Leadership Thank You Letter sb4 Prescriptions: - Topamax 100 mg Oral tablet - take 1 tablet ORAL route every 12 hours; 30 tablet; Refills: 0, Product sb4 Selection Permitted - aripiprazole 2 mg Oral tablet - take 1 tablet ORAL route daily; 15 tablet; Refills: 0, Product Selection sb4 Permitted - venlafaxine 100 mg Oral tablet - take 1 tablet ORAL route every 12 hours; 30 tablet; Refills: 0, Product sb4 Selection Permitted - zolpidem 10 mg Oral tablet - take 1 tablet ORAL route every day at bedtime as needed for sleep; 15 tablet; sb4 Refills: 0, Product Selection Permitted - Dilantin Kapseal 100 mg Oral capsule - take 1 capsule ORAL route every 8 hours; 45 capsule; Refills: 0, Product sb4 Selection Permitted Signatures: Vipul Schafer RN RN ll1 Rose Mary Vasquez PA-C PA-C sb4 Chris Graham RN RN rs5 Shanice Lanier RN RN me1
--- NOTE | 2024-09-03 15:40 | ER ---
Nurse's Notes [facility] Name: Alfie Zavala Age: 34 yrs Sex: Male : 1990 Arrival Date: 09/03/2024 Time: 15:22 Bed 14 Private MD: Diagnosis: Epileptic seizures related to external causes, not intractable Presentation: 09/03 15:35 Chief complaint: Patient states: States he has a quick seizure around 1300 today. Has ll1 been out of his medications for a few days. Has insomnia and hasn't slept in 3 days. Coronavirus screen: Client denies travel out of the [place] in the last 14 days. At this time, the client does not indicate any symptoms associated with coronavirus-19. Ebola Screen: Patient denies travel to an Ebola-affected area in the 21 days before illness onset. Initial Sepsis Screen: Does the patient meet any 2 criteria? No. Patient's initial sepsis screen is negative. Does the patient have a suspected source of infection? No. Patient's initial sepsis screen is negative. Risk Assessment: Do you want to hurt yourself or someone else? Patient reports no desire to harm self or others. Onset of symptoms was September 03, 2024. 15:35 Method Of Arrival: Wheelchair ll1 15:35 Acuity: KEN 3 ll1 Triage Assessment: 15:37 General: Appears uncomfortable, Behavior is calm, cooperative, appropriate for age. ll1 General: Reports having a seizure. Pain: Denies pain. Neuro: Reports seizure and insomnia. Historical: - Allergies: 15:26 No Known Allergies; rs5 - PMHx: 15:26 Depression; Headaches; Seizures; status epilepticus; rs5 - Immunization history:: Adult Immunizations up to date. - Infectious Disease History:: Denies. - Social history:: Smoking status: Patient denies any tobacco usage or history of. Screenin:35 [facility] ED Fall Risk Assessment (Adult) History of falling in the last 3 months, me1 including since admission No falls in past 3 months (0 pts) Confusion or Disorientation No (0 pts) Intoxicated or Sedated No (0 pts) Impaired Gait No (0 pts) Mobility Assist Device Used No (0 pt) Altered Elimination No (0 pt) Score/Fall Risk Level 0 - 2 = Low Risk Maintained a safe environment, Provided non-skid footwear, Hourly rounding (assess needs \T\ fall precautionary measures) done. Abuse screen: Denies threats or abuse. Nutritional screening: No deficits noted. Tuberculosis screening: No symptoms or risk factors identified. Assessment: 15:35 General: Appears uncomfortable, ill, well groomed, well developed, well nourished, me1 Behavior is calm, cooperative, appropriate for age, Reports having a seizure today about 1 pm. Has been out of seizure meds for a week. Pain: Denies pain. Neuro: Level of Consciousness is awake, alert, obeys commands, Oriented to person, place, time, situation, Appropriate for age Reports had a seizure today at 1pm. Cardiovascular: Patient's skin is warm and dry. Respiratory: Airway is patent Respiratory effort is even, unlabored, Respiratory pattern is regular, symmetrical. GI: No signs and/or symptoms were reported involving the gastrointestinal system. : No signs and/or symptoms were reported regarding the genitourinary system. EENT: No signs and/or symptoms were reported regarding the EENT system. Derm: Skin is intact, is healthy with good turgor, Skin is pink, warm \T\ dry. Musculoskeletal: No signs and/or symptoms reported regarding the musculoskeletal system. Vital Signs: 15:30 BP 123 / 87; Pulse 107; Resp 18; Temp 98.4; Pulse Ox 96% ; me1 15:35 BP 141 / 93; Pulse 124; Resp 18; Temp 97.4; Pulse Ox 98% on R/A; Weight 124.74 kg; ll1 Height 5 ft. 11 in. ; Pain 0/10; 15:35 Body Mass Index 38.35 (124.74 kg, 180.34 cm) ll1 15:35 Pain Scale: Adult ll1 Windom Coma Score: 15:37 Eye Response: spontaneous(4). Motor Response: obeys commands(6). Verbal Response: ll1 oriented(5). Total: 15. ED Course: 15:25 Patient arrived in ED. im 15:25 Rose Mary Vasquez PA-C is PHCP. sb4 15:25 Blue Rodriguez MD is Attending Physician. sb4 15:26 Arm band placed on Patient placed in an exam room, on a stretcher. rs5 15:35 Shanice Lanier, RN is Primary Nurse. me1 15:35 Patient has correct armband on for positive identification. Bed in low position. Call me1 light in reach. Side rails up X2. Seizure precautions initiated. Provided Education on: POC. Verbalized understanding. . 15:35 Client placed on continuous cardiac and pulse oximetry monitoring. NIBP monitoring me1 applied. Pulse ox on. NIBP on. 15:35 No provider procedures requiring assistance completed. me1 15:37 Triage completed. ll1 15:39 Earle Fraknlin DO is Referral Physician. sb4 15:51 Patient did not have IV access during this emergency room visit. me1 Administered Medications: No medications were administered Medication: 15:35 VIS not applicable for this client. me1 Outcome: 15:39 Discharge ordered by MD. sb4 15:51 Discharged to home ambulatory, with family, me1 15:51 Condition: stable 15:51 Discharge instructions given to patient, Instructed on discharge instructions, follow up and referral plans. medication usage, Demonstrated understanding of instructions, follow-up care, medications, Prescriptions given X x5 15:52 Patient left the ED. me1 Signatures: Vipul Schafer, RN RN ll1 Rose Mary Vasquez PA-C PA-C sb4 Chris Graham, RN RN rs5 Awa Kaiser Michelle, RN RN me1 Corrections: (The following items were deleted from the chart) 15:51 15:30 BP 123 / 87; Pulse 107bpm; Resp 18bpm; Pulse Ox 96%; me1 me1
[2024-09-03 19:03] VITALS: BP 141/93; TEMP 97.4; O2SAT 98
== END 2024-09-03 15:52 | disposition home or self-care (01) ==
LOC: ER 15:22
DX: G40.509 Epileptic seizures related to external causes, not intractable, without status epilepticus (principal)
CPT/HCPCS: 99283